=== PATIENT | female | born 1970 | race Caucasian/White ===

== ENCOUNTER 2017-10-24 17:54 | Emergency (ER) | payer OTHER, SELFPAY ==
[2017-10-24 17:55] VITALS: BP 180/100; PULSE 75; RESP 18; TEMP 36.5; O2SAT 98; BMI 19.1
--- NOTE | 2017-10-24 18:07 | CT_ITS ---
CT head/brain wo con HISTORY: Seizures, repetitive seizures ITS.REASON: seizure ORDERING PHYSICIAN: Lloyd Cagle MD PATIENT AGE: 46 years COMPARISON: 09/23/2016 TECHNIQUE: Axial images obtained without contrast. Brain and bone windows reviewed. FINDINGS: Study was performed by helical technique due to patient motion. No midline shift or mass effect is evident. No acute intracranial hemorrhage. There is mild prominence of the lateral ventricles not significantly changed. There is prominence of the suprasellar cistern on the left as before. 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 Some of these on the left appear somewhat more prominent than when compared to the previous study but could be related to the helical technique. No acute calvarial abnormality. No sinus air-fluid level. There is hypoplasia of the left mastoid sinuses. IMPRESSION: 1. No acute intracranial findings. 2. Mild ventriculomegaly unchanged. 3. Multiple subependymal nodules bilaterally and appear slightly more prominent than when compared to the previous study. This could be related to the technique. 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 Differential diagnosis includes tuberous sclerosis however, those nodules are usually calcified in adults. Outpatient MRI without and with contrast may be of further value.
[2017-10-24 18:15] LABS: POC Glucose,Bedside 121 mg/dL (70-110)
[2017-10-24 18:18] LABS: Microscopic, Urine URINE MICROSCOPIC (MICROSCOPIC)
[2017-10-24 18:27] LABS: Basophils % 0.1 % (0.1-2.0); Eosinophils # 0.1 K/mm3 (0.0-0.4); Eosinophils % 0.3 % (0.1-12.0); Lymphocytes # 1.9 K/mm3 (0.7-4.5); Lymphocytes % 7.6 K/mm3 (10-50); Mean Corpuscular HGB Conc 31.1 g/dL (31.8-35.4); Mean Corpuscular Hemoglobin 29.7 pg (27.0-31.2); Mean Corpuscular Volume 95.7 fl (81-99); Mean Platelet Volume 7.9 fl (7.4-10.4); Monocytes # 1.4 K/mm3 (0.1-1.0); Monocytes % 5.5 % (1.7-9.3); Neutrophils # 21.6 K/mm3 (1.8-7.8); Neutrophils % 86.4 % (37.0-80.0); Platelet Count 404 K/mm3 (142-424); Red Blood Count 4.39 M/mm3 (4.20-5.40); Red Cell Distribution Width 13.2 % (11.5-17.5)
[2017-10-24 18:29] LABS: MANUAL DIFFERENTIAL MANUAL DIFFERENTIAL (MANUAL DIFF)
--- NOTE | 2017-10-24 18:30 | XR_ITS ---
XR chest portable HISTORY: Shortness of breath, seizure ITS.REASON: dyspnea ORDERING PHYSICIAN: Lloyd Cagle MD PATIENT AGE: 47 years COMPARISON: None available FINDINGS: The cardiomediastinal silhouette and pulmonary vascularity are within normal limits. The lungs are clear without infiltrates, suspicious nodules, or pleural effusions. Bilateral nipple rings are present. There is an old fracture of the right seventh and eighth ribs and the left eighth rib. Granulomas present in the right midlung. No acute bony abnormalities. IMPRESSION: No acute finding
[2017-10-24 18:31] LABS: Appearance,Urine CLOUDY (Clear); Bilirubin,Urine Negative (Negative); Blood, Urine 2+ (Negative); Color,Urine YELLOW (Yellow); Glucose,Urine (UA) Negative (Negative); Ketones,Urine TRACE (Negative); Leukocyte Esterase,Urine Negative (Negative); Nitrate,Urine Negative (Negative); PH,Urine 5.5 (5.0-8.5); Protein,Urine 1+ (Negative); Specific Gravity, Urine >= 1.030 (1.005-1.030); Urobilinogen,Urine 0.2 EU/dl (0.2)
[2017-10-24 18:33] LABS: Amphetamine/Metha Screen,Urine Negative ng/mL (<1000); Barbiturates Screen,Urine Negative ng/mL (<200); Benzodiazepines Screen,Urine Negative ng/mL (200); Cannabinoid Screen,Urine Positive ng/mL (<50); Cocaine Screen,Urine Negative ng/g (<300); Methadone Screen,Urine Negative ng/mL (<300); Opiate Screen,Urine Negative ng/mL (<300); Phencyclidine Screen,Urine Negative ng/mL (<25)
[2017-10-24 18:43] VITALS: BP 115/65; PULSE 110; RESP 16; TEMP 37.2; O2SAT 99
[2017-10-24 18:47] LABS: Bacteria,Urine 4+ /lpf; Squamous Epithelial Cell,Urine 20-50 #/hpf (0-5)
[2017-10-24 18:50] LABS: Lymphocytes % 8 % (10-50); Monocytes % 3 % (2-9); Neutrophils % 89 % (42-76); Platelet Estimate Normal; RBC Morphology Normal; Total Cells Counted 100
[2017-10-24 19:00] VITALS: BP 120/60; PULSE 116; RESP 18; TEMP 37.8; O2SAT 88
--- NOTE | 2017-10-24 19:28 | PC.NURSE ---
Pt sounded like she was gargling - suctioned patient's mouth at this time. Room air saturation was 88%, placed pt on 2l nc.
[2017-10-24 19:37] LABS: Lactic Acid 7.7 mmol/L (0.4-2.0)
[2017-10-24 19:37] LABS: Alanine Aminotransferase 34 U/L (12-78); Albumin Level 4.2 gm/dL (3.4-5.0); Albumin/Globulin Ratio 1.2 (1.1-1.8); Alkaline Phosphatase 83 U/L (46-116); Anion Gap 24.5 mEq/L (5-15); Aspartate Amino Transferase 58 U/L (15-37); Bilirubin,Total 0.8 mg/dL (0.2-1.0); Blood Urea Nitrogen 10 mg/dL (7-18); Calcium 8.1 mg/dL (8.5-10.1); Carbon Dioxide 17 mmol/L (21.0-32.0); Creatinine Clearance Estimated 51 mL/min (0-300); Creatinine,Serum 0.95 mg/dL (0.55-1.02); Estimated Glomerular Filt Rate 63 ml/min (>60); Ethyl Alcohol 33 mg/dL (0-99); GFR (African American) 76 ML/MIN (>60); Globulin 3.5 gm/dl (1.3-3.2); Glucose 114 mg/dL (74-106); Potassium 3.5 mmoL/L (3.5-5.1); Total Protein,Serum 7.7 gm/dL (6.4-8.2)
[2017-10-24 19:38] LABS: Chloride 73 mmol/L (98-107); Sodium 111 mmol/L (136-145)
--- NOTE | 2017-10-24 19:39 | HMH.EDSEIZ ---
ED Disposition Clinical Impression: Hyponatremia, Lactic acidemia, Seizure, Alcoholism, Septic shock Alcohol withdrawal Qualifiers: Complication of substance-induced condition: uncomplicated Qualified Code(s): F10.230 - Alcohol dependence with withdrawal, uncomplicated Pneumonia Qualifiers: Pneumonia type: due to unspecified organism Laterality: left Lung location: upper lobe of lung Qualified Code(s): J18.1 - Lobar pneumonia, unspecified organism Disposition: Xfer Short-Term Hosp Condition on Discharge: Critical Referrals: Mariana Faith [Primary Care Provider] - Forms: Transfer Record - ED Time of Disposition: 20:07 - Critical Care Critical Care Time: Yes Attestation: On 10/24/17, the high probability of a clinically significant, sudden or life threatening deterioration of the following system(s) required my full and direct attention, intervention and personal management. The time I documented below is in addition to time spent performing reported procedures but includes the following listed in this critical care notation. Total Critical Care Time: 120 Vital system(s) involved:: Central Nervous System, Shock (Septic) My critical care processes included: Assessment & monitoring of V/S, Initial and Re-exams, Data Review/Interpretation, Coordinating Care, Medication Orders and management, Documentation Medical Decision Making - Medical Records Medical records reviewed: Yes: I reviewed the patient's medical records. Vital Signs: 10/24/17 17:55 10/24/17 18:43 10/24/17 19:00 Temperature 97.7 F 98.9 F 100.0 F H Temperature Source Temporal Artery Scan Temporal Artery Scan Oral Pulse Rate [Right Brachial] 75 110 H 116 H Respiratory Rate 18 16 18 Blood Pressure [Right Arm] 180/100 115/65 120/60 Blood Pressure Mean [Right Arm] 126 81 80 Blood Pressure Source [Right Arm] Automatic Cuff Automatic Cuff Automatic Cuff Blood Pressure Position [Right Arm] Sitting Sitting Supine 02 Sat by Pulse Oximetry 98 99 88 L Oxygen Delivery Method Room Air Room Air Nasal Cannula Room Air Oxygen Flow Rate (LPM) 10/24/17 19:51 10/24/17 20:10 Temperature 100.3 F H Temperature Source Rectal Pulse Rate [Right Brachial] 106 H 105 H Respiratory Rate 18 18 Blood Pressure [Right Arm] 134/84 134/84 Blood Pressure Mean [Right Arm] 100 100 Blood Pressure Source [Right Arm] Automatic Cuff Automatic Cuff Blood Pressure Position [Right Arm] Supine Supine 02 Sat by Pulse Oximetry 98 96 Oxygen Delivery Method Nasal Cannula Oxygen Flow Rate (LPM) 3 2 - Lab Data Lab results reviewed: Yes: I reviewed the patient's lab results. Lab Results 10/24/17 18:06: POC Glucose 121 10/24/17 18:10: Urine Color Yellow, Urine Appearance Cloudy, Urine pH 5.5, Ur Specific [place] >= 1.030, Urine Protein 1+, Urine Glucose (UA) Negative, Urine Ketones Trace, Urine Blood 2+, Urine Nitrate Negative, Urine Bilirubin Negative, Urine Urobilinogen 0.2, Ur Leukocyte Esterase Negative, Urine RBC None, Urine WBC 5-10, Ur Squamous Epith Cells 20-50, Urine Bacteria 4+ 10/24/17 18:10: WBC 25.0 H*, RBC 4.39, Hgb 13.0, Hct 42.0, MCV 95.7, MCH 29.7, MCHC 31.1 L, RDW 13.2, Plt Count 404, MPV 7.9, Neut % (Auto) 86.4 H, Lymph % (Auto) 7.6 L, [place] % (Auto) 5.5, Eos % (Auto) 0.3, Baso % (Auto) 0.1, Neut # (Auto) 21.6 H, Lymph # (Auto) 1.9, [place] # (Auto) 1.4 H, Eos # (Auto) 0.1, Baso # (Auto) 0.0, Total Counted 100, Neutrophils % (Manual) 89 H, Lymphocytes % (Manual) 8 L, Monocytes % (Manual) 3, Platelet Estimate Normal, RBC Morphology Normal 10/24/17 18:10: Sodium 111 L*, Potassium 3.5, Chloride 73 L, Carbon Dioxide 17 L, Anion Gap 24.5 H, BUN 10, Creatinine 0.95, Estimated Creat Clear 51, Estimated GFR 63, Est GFR ( Amer) 76, Glucose 114 H, Calcium 8.1 L, Total Bilirubin 0.8, AST 58 H, ALT 34, Alkaline Phosphatase 83, Total Protein 7.7, Albumin 4.2, Globulin 3.5 H, Albumin/Globulin Ratio 1.2, Plasma/Serum Alcohol 33 10/24/17 18:10: Urine Opiates Screen Negative, Ur Barbitua
[2017-10-24 19:40] LABS: ABG Base Excess -1.8 mmol/L (-2.4-2.3); ABG HCO3 22.3 mmhg (22.0-26.0); ABG Oxygen Saturation 97 % (90-100); ABG PCO2 33.4 mmhg (35.0-45.0); ABG PH 7.44 mmol/L (7.35-7.45); ABG TCO2 23.4 mmhg (23-27)
[2017-10-24 19:43] LABS: Allen's Test Patient Unable
--- NOTE | 2017-10-24 19:46 | PC.NURSE ---
LAB CALLED WITH CRITICAL LAB VALUE, LACTIC 7.7, AND SODIUM 111. ADVISED.
[2017-10-24 19:51] VITALS: BP 134/84; PULSE 106; RESP 18; TEMP 37.9; O2SAT 98
--- NOTE | 2017-10-24 19:52 | PC.NURSE ---
md on phone with dr burroughs regarding possible admission at this time
--- NOTE | 2017-10-24 19:56 | PC.NURSE ---
Dr Collier requested to have patient transferred to .
[2017-10-24 20:10] VITALS: BP 134/84; PULSE 105; RESP 18; O2SAT 96
--- NOTE | 2017-10-24 20:10 | PC.NURSE ---
pharmacy paged for vanc dosing
--- NOTE | 2017-10-24 20:27 | PC.NURSE ---
KENNEDY FROM PHARMACY CALLED FOR VANCOMYCIN CONSULT. SHE ADVISED PT SHOULD HAVE 750MG EVERY 18 HOURS. ADVISED.
--- NOTE | 2017-10-24 20:53 | PC.NURSE ---
lenora paged per md regarding rate for hypertonic iv fluids. also spoke with pharmacy regarding compatibility with iv abx as pt has one iv
--- NOTE | 2017-10-24 20:58 | PC.NURSE ---
Shira, pharmacy stated Vancomycin and Azithromycin are compatible with Hypertonic iv fluids 3% solution
--- NOTE | 2017-10-24 21:14 | PC.NURSE ---
Report called to SHERI Baumann at ER at this time. [facility] notified of pt being ready for transport.
[2017-10-24 21:15] VITALS: BP 123/70; PULSE 107; RESP 22; TEMP 37.3; O2SAT 100
[2017-10-24 21:47] LABS: Reflex Lactic Add Lactic Reflex
[2017-10-29 06:41] LABS: Levetiracetam (Keppra) None Detected ug/mL (10.0-40.0)
== END 2017-10-24 21:24 | disposition short-term general hospital (02) ==
PROVIDERS: Emergency Provider Emergency Medicine; PCP Physician Assistant
DX: R56.9 Unspecified convulsions (principal); E87.1 Hypo-osmolality and hyponatremia; E87.2 Acidosis; F10.230 Alcohol dependence with withdrawal, uncomplicated; J18.1 Lobar pneumonia, unspecified organism; R65.21 Severe sepsis with septic shock; F17.210 Nicotine dependence, cigarettes, uncomplicated
CPT/HCPCS: 70450; 71045; 80053; 80177; 80305; 81001; 82803; 82962; 83605; 85007; 85025; 87040; 87086; 87088; 87186; 93041; 96365; 96366; 96367; 96374; 96375; 96376; 99285; J0456

== ENCOUNTER 2017-11-06 11:10 | Emergency (ER) | payer OTHER, SELFPAY ==
[2017-11-06 11:12] VITALS: BP 86/55; PULSE 97; RESP 18; TEMP 36.8; O2SAT 92; BMI 17.2
[2017-11-06 11:32] LABS: Basophils % 0.1 % (0.1-2.0); Eosinophils % 0.3 % (0.1-12.0); Hematocrit 32.3 % (37.0-47.0); Hemoglobin 10.2 g/dL (12.2-16.2); Lymphocytes # 1.5 K/mm3 (0.7-4.5); Lymphocytes % 9.8 K/mm3 (10-50); Mean Corpuscular HGB Conc 31.5 g/dL (31.8-35.4); Mean Corpuscular Hemoglobin 30.1 pg (27.0-31.2); Mean Corpuscular Volume 95.6 fl (81-99); Mean Platelet Volume 7.8 fl (7.4-10.4); Monocytes # 0.8 K/mm3 (0.1-1.0); Monocytes % 5.4 % (1.7-9.3); Neutrophils # 12.9 K/mm3 (1.8-7.8); Neutrophils % 84.4 % (37.0-80.0); Platelet Count 301 K/mm3 (142-424); Red Blood Count 3.38 M/mm3 (4.20-5.40); Red Cell Distribution Width 13.1 % (11.5-17.5); White Blood Count 15.2 K/mm3 (4.8-10.8)
[2017-11-06 11:34] LABS: MANUAL DIFFERENTIAL MANUAL DIFFERENTIAL (MANUAL DIFF)
[2017-11-06 11:46] LABS: Lymphocytes % 6 % (10-50); Monocytes % 10 % (2-9); Neutrophils % 84 % (42-76); Platelet Estimate Normal; RBC Morphology Normal; Total Cells Counted 100
[2017-11-06 11:55] LABS: Albumin Level 3.5 gm/dL (3.4-5.0); Albumin/Globulin Ratio 1.3 (1.1-1.8); Alkaline Phosphatase 80 U/L (46-116); Anion Gap 13.4 mEq/L (5-15); Bilirubin,Total 0.3 mg/dL (0.2-1.0); Blood Urea Nitrogen 17 mg/dL (7-18); Calcium 8.3 mg/dL (8.5-10.1); Carbon Dioxide 29 mmol/L (21.0-32.0); Chloride 95 mmol/L (98-107); Creatinine Clearance Estimated 22 mL/min (0-300); Estimated Glomerular Filt Rate 24 ml/min (>60); GFR (African American) 29 ML/MIN (>60); Globulin 2.8 gm/dl (1.3-3.2); Glucose 95 mg/dL (74-106); Potassium 4.4 mmoL/L (3.5-5.1); Sodium 133 mmol/L (136-145); Total Protein,Serum 6.3 gm/dL (6.4-8.2)
[2017-11-06 12:27] LABS: Alanine Aminotransferase 1824 U/L (12-78)
[2017-11-06 12:33] VITALS: BP 108/62; PULSE 90; RESP 18; O2SAT 93
[2017-11-06 12:35] LABS: Aspartate Amino Transferase 2807 U/L (15-37)
--- NOTE | 2017-11-06 12:49 | HMH.EDGENADL ---
ED Disposition Clinical Impression: Alcoholism Acute liver failure Qualifiers: Hepatic coma status: without hepatic coma Qualified Code(s): K72.00 - Acute and subacute hepatic failure without coma Acute renal failure Qualifiers: Acute renal failure type: unspecified Qualified Code(s): N17.9 - Acute kidney failure, unspecified Hypotension Qualifiers: Hypotension type: unspecified hypotension type Qualified Code(s): I95.9 - Hypotension, unspecified Anemia Qualifiers: Anemia type: unspecified type Qualified Code(s): D64.9 - Anemia, unspecified Disposition: Xfer Short-Term Hosp Condition on Discharge: Serious Referrals: Eneida Child [Primary Care Provider] - Forms: Transfer Record - ED Time of Disposition: 14:47 - Critical Care Critical Care Time: Yes Attestation: On 11/06/17, the high probability of a clinically significant, sudden or life threatening deterioration of the following system(s) required my full and direct attention, intervention and personal management. The time I documented below is in addition to time spent performing reported procedures but includes the following listed in this critical care notation. Total Critical Care Time: 75 Vital system(s) involved:: Metabolic Failure My critical care processes included: Assessment & monitoring of V/S, Initial and Re-exams, Data Review/Interpretation, Coordinating Care, Medication Orders and management, Documentation Medical Decision Making - Medical Records Medical records reviewed: Yes: I reviewed the patient's medical records. - Payam Inquiry Pt receiving controlled substance: No Vital Signs: 11/06/17 11:12 11/06/17 12:33 11/06/17 16:12 Temperature 98.2 F 98.4 F Temperature Source Oral Oral Pulse Rate 82 Pulse Rate [Right Brachial] 97 H 90 Respiratory Rate 18 Blood Pressure 100/72 Blood Pressure [Right Arm] 86/55 108/62 Blood Pressure Mean [Right Arm] 65 77 Blood Pressure Source Automatic Cuff Blood Pressure Source [Right Arm] Automatic Cuff Automatic Cuff Blood Pressure Position Sitting Blood Pressure Position [Right Arm] Sitting Sitting 02 Sat by Pulse Oximetry 92 L 93 L Oxygen Delivery Method Room Air Room Air Room Air - Lab Data Lab results reviewed: Yes: I reviewed the patient's lab results. Lab Results 11/06/17 11:25: WBC 15.2 H, RBC 3.38 L, Hgb 10.2 L, Hct 32.3 L, MCV 95.6, MCH 30.1, MCHC 31.5 L, RDW 13.1, Plt Count 301, MPV 7.8, Neut % (Auto) 84.4 H, Lymph % (Auto) 9.8 L, [place] % (Auto) 5.4, Eos % (Auto) 0.3, Baso % (Auto) 0.1, Neut # (Auto) 12.9 H, Lymph # (Auto) 1.5, [place] # (Auto) 0.8, Eos # (Auto) 0.0, Baso # (Auto) 0.0, Total Counted 100, Neutrophils % (Manual) 84 H, Lymphocytes % (Manual) 6 L, Monocytes % (Manual) 10 H, Platelet Estimate Normal, RBC Morphology Normal 11/06/17 11:25: Sodium 133 L, Potassium 4.4, Chloride 95 L, Carbon Dioxide 29, Anion Gap 13.4, BUN 17, Creatinine 2.20 H, Estimated Creat Clear 22, Estimated GFR 24 L, Est GFR ( Amer) 29 L, Glucose 95, Calcium 8.3 L, Total Bilirubin 0.3, AST 2807 H*, ALT 1824 H*, Alkaline Phosphatase 80, Total Protein 6.3 L, Albumin 3.5, Globulin 2.8, Albumin/Globulin Ratio 1.3 11/06/17 11:30: Plasma/Serum Alcohol 0 11/06/17 11:30: Amylase 110, Lipase 51 L 11/06/17 15:15: Urine Color Yellow, Urine Appearance Cloudy, Urine pH 6.0, Ur Specific [place] 1.025, Urine Protein 2+, Urine Glucose (UA) Negative, Urine Ketones Negative, Urine Blood 2+, Urine Nitrate Negative, Urine Bilirubin Negative, Urine Urobilinogen 0.2, Ur Leukocyte Esterase 2+ A, Urine RBC Occasional, Urine WBC 20-50, Ur Squamous Epith Cells Occasional, Urine Bacteria 3+ Result diagrams: 11/06/17 11:25 11/06/17 11:25 Orders (Tests/Meds): ED MEDICATIONS Discontinued Medications Generic Name Dose Route Start Last Admin Trade Name Freq PRN Reason Stop Dose Admin Sodium Chloride 1,000 mls @ 999 mls/hr 11/06/17 13:15 11/06/17 13:10 Sod Chlor 0.9% 1000ml Bag IV 11/06/17 14
[2017-11-06 13:28] LABS: Ethyl Alcohol 0 mg/dL (0-99)
--- NOTE | 2017-11-06 13:42 | PC.NURSE ---
EDIN COKER speaking with REBEKA Rivas for Dr. Maldonado.
--- NOTE | 2017-11-06 15:08 | PC.NURSE ---
FAMILY NOTIFIED OF TRANSFER TO [facility]. PATIENT ACCEPTED TO [facility] ED TO SERVICES DR PERKINS WITH DX ACUTE LIVER FAILURE AND ACUTE RENAL FAILURE
[2017-11-06 15:22] LABS: Microscopic, Urine URINE MICROSCOPIC (MICROSCOPIC)
[2017-11-06 15:23] LABS: Appearance,Urine CLOUDY (Clear); Bilirubin,Urine Negative (Negative); Blood, Urine 2+ (Negative); Color,Urine YELLOW (Yellow); Glucose,Urine (UA) Negative (Negative); Ketones,Urine Negative (Negative); Leukocyte Esterase,Urine 2+ (Negative); Nitrate,Urine Negative (Negative); Protein,Urine 2+ (Negative); Specific Gravity, Urine 1.025 (1.005-1.030); Urobilinogen,Urine 0.2 EU/dl (0.2)
[2017-11-06 15:49] LABS: Bacteria,Urine 3+ /lpf; RBC,Urine Occasional #/hpf (0-3); Squamous Epithelial Cell,Urine Occasional #/hpf (0-5); WBC,Urine 20-50 #/hpf (0-3)
[2017-11-06 16:12] VITALS: BP 100/72; PULSE 82; RESP 18; TEMP 36.9; O2SAT 90
[2017-11-06 16:45] LABS: Amylase 110 U/L (25-125); Lipase 51 u/L (73-393)
== END 2017-11-06 16:14 | disposition short-term general hospital (02) ==
PROVIDERS: Emergency Provider Emergency Medicine; PCP Family Medicine
DX: K72.00 Acute and subacute hepatic failure without coma (principal); N17.9 Acute kidney failure, unspecified; I95.9 Hypotension, unspecified; D64.9 Anemia, unspecified; F17.210 Nicotine dependence, cigarettes, uncomplicated; R56.9 Unspecified convulsions; F10.20 Alcohol dependence, uncomplicated
CPT/HCPCS: 80053; 81001; 82150; 83690; 85007; 85025; 87086; 87088; 87186; 96365; 96366; 99284

== ENCOUNTER → 2017-12-07 13:48 | Outpatient (CLI) | payer OTHER, SELFPAY ==
--- NOTE | 2017-12-07 13:51 | CA_ITS ---
PROCEDURE: 2-D M-mode and color Doppler study INDICATIONS FOR THE TEST: Chest painx COPD Heart Murmur Tobacco Smokingx Palpitations Fatiguex Syncope Edema HypertensionxDiabetes Mellitus Rheumatic Fever SOBxDOE Obesity Hyperlipidemia Family History HD Additional History PATIENT INFORMATION HEIGHT: 5'4'' WEIGHT:89 GENDER: Female B/P: 165/92 2-D/M-MODE INTERPRETATION: 2-D MEASUREMENTS OBSERVED VALUES IN CMS Right Ventricular Dimension (RVDd) 1.8 Interventricular Septum (Thickness)(IVsd) 0.6 Left Ventricular Internal Dimensions(LVIDd) 3.9 Left Ventricular Posterior Wall (Thickness)(LVPWd) 0.8 Aortic Root 2.5 Aortic Cusp Separation 1.6 Left Atrial Dimensions (LAD) 2.4 2D 1. Left atrium is normal size, left ventricle is normal size, there is no concentric left ventricular hypertrophy, visually estimated ejection fraction 55% with no obvious regional wall motion abnormality. 2. The right atrium and right ventricle are normal size and contractility. 3. The aortic valve is minimally thickened and fibrosed. 4. The mitral and tricuspid valve are structurally normal. 5. The pulmonic valve is poorly visualized. 6. No significant pericardial effusion noted. DOPPLER INTERROGATION: Doppler interrogation of the aortic, mitral and tricuspid valvular presence of mild mitral and tricuspid regurgitation, tricuspid and jet velocity is insufficient for calculation of the right ventricular systolic pressure, grade 1 diastolic dysfunction seen without tissue Doppler evidence of raised left atrial pressure. CONCLUSION: 1. Normal left ventricular size, visually estimated ejection fraction 55% no signal wall motion abnormality, grade 1 diastolic dysfunction seen without tissue Doppler evidence of raised left atrial pressure. 2. Mild mitral and tricuspid regurgitation. 3. No significant pericardial effusion noted.
== END ==
PROVIDERS: PCP Family Medicine; Visit Provider Internal Medicine
DX: I25.10 Atherosclerotic heart disease of native coronary artery without angina pectoris (principal); F10.20 Alcohol dependence, uncomplicated; R56.9 Unspecified convulsions; Z72.0 Tobacco use
CPT/HCPCS: 93306

== ENCOUNTER → 2018-06-12 07:14 | Outpatient (CLI) | payer OTHER, SELFPAY ==
--- NOTE | 2018-06-12 07:16 | NM_ITS ---
CARDIOLITE SPECT MYOCARDIAL PERFUSION SCAN, REST AND STRESS: EXERCISE STRESS [facility] REVIEW QGS EF AND WALL MOTION EVALUATION: QPS - PERFUSION EVALUATION HISTORY: SOB, Palpitations, Fatigue, HTN, Tobacco use DOSE: 10.26 mCi technetium 99m mibi intravenously at rest followed by 31.0 mCi technetium 99m mibi following the intravenous ministration of 0.4 mg of Lexiscan. Resting blood pressure is 167/87. Stress blood pressure 145/83. FINDINGS: Ejection fraction is calculated to be 67%. Uniform myocardial activity both stress and rest. Gated images calculated ejection fraction 67% with normal wall motion IMPRESSION: No scintigraphic evidence of Lexiscan-induced myocardial ischemia with normal ejection fraction normal wall motion
--- NOTE | 2018-06-12 08:41 | HMH.ITSHM ---
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 []OMEPRAZOLE MOMETASONE LISINOPRIL LEVETIRACETAM NAPROXEN HYDROCHLOROTHIAZIDE FOLIC ACID BISOPROLOL ASA ALBUTEROL GABAPENTIN FLUOXETINE
== END ==
PROVIDERS: PCP Family Medicine; Visit Provider Internal Medicine
DX: E78.5 Hyperlipidemia, unspecified (principal); I10 Essential (primary) hypertension; R06.09 Other forms of dyspnea; I25.118 Atherosclerotic heart disease of native coronary artery with other forms of angina pectoris; D64.9 Anemia, unspecified; F10.20 Alcohol dependence, uncomplicated; F17.200 Nicotine dependence, unspecified, uncomplicated; R07.9 Chest pain, unspecified
CPT/HCPCS: 78452; 93017; A9502; J2785

== ENCOUNTER → 2018-06-19 13:50 | Outpatient (CLI) | payer OTHER, SELFPAY ==
[2018-06-19 15:27] LABS: Anion Gap 12.2 mEq/L (5-15); Blood Urea Nitrogen 8 mg/dL (7-18); Calcium 9.3 mg/dL (8.5-10.1); Carbon Dioxide 31 mmol/L (21.0-32.0); Chloride 101 mmol/L (98-107); Creatinine,Serum 0.71 mg/dL (0.55-1.02); Estimated Glomerular Filt Rate 88 ml/min (>60); GFR (African American) 106 ML/MIN (>60); Glucose 89 mg/dL (74-106); Potassium 4.2 mmoL/L (3.5-5.1); Sodium 140 mmol/L (136-145); Troponin I 0.02 ng/ml (0.00-0.06)
== END ==
PROVIDERS: Visit Provider Internal Medicine
DX: R07.9 Chest pain, unspecified (principal); R06.09 Other forms of dyspnea; E78.5 Hyperlipidemia, unspecified; F10.20 Alcohol dependence, uncomplicated; F17.200 Nicotine dependence, unspecified, uncomplicated; I10 Essential (primary) hypertension; I25.118 Atherosclerotic heart disease of native coronary artery with other forms of angina pectoris; R42 Dizziness and giddiness; R55 Syncope and collapse
CPT/HCPCS: 36415; 80048; 84484

== ENCOUNTER 2019-06-05 08:36 | Observation (INO) ==
[2019-06-05 09:02] LABS: Basophils # 0.1 K/mm3 (0-0.2); Basophils % 0.5 % (0.1-2.0); Eosinophils # 0.1 K/mm3 (0.0-0.4); Eosinophils % 0.9 % (0.1-12.0); Hematocrit 42.7 % (37.0-47.0); Hemoglobin 12.8 g/dL (12.2-16.2); Lymphocytes # 1.9 K/mm3 (0.7-4.5); Lymphocytes % 19.2 % (10-50); Mean Corpuscular HGB Conc 29.9 g/dL (31.8-35.4); Mean Corpuscular Volume 90.9 fl (81-99); Mean Platelet Volume 7.5 fl (7.4-10.4); Monocytes # 0.8 K/mm3 (0.1-1.0); Monocytes % 8.1 % (1.7-9.3); Neutrophils # 7.1 K/mm3 (1.8-7.8); Neutrophils % 71.2 % (37.0-80.0); Platelet Count 335 K/mm3 (142-424); Red Cell Distribution Width 13.8 % (11.5-17.5); White Blood Count 9.9 K/mm3 (4.8-10.8)
--- NOTE | 2019-06-05 09:23 | Emergency Department Note ---
ED Disposition Clinical Impression: COPD exacerbation Respiratory failure with hypoxia Qualifiers: Chronicity: acute on chronic Qualified Code(s): J96.21 - Acute and chronic respiratory failure with hypoxia Disposition: Admitted As Inpatient Condition on Discharge: Fair Referrals: Provider,Referral, [Primary Care Provider] - - Critical Care Critical Care Time: Yes Attestation: On 06/05/19, the high probability of a clinically significant, sudden or life threatening deterioration of the following system(s) required my full and direct attention, intervention and personal management. The time I documented below is in addition to time spent performing reported procedures but includes the following listed in this critical care notation. Vital system(s) involved:: Respiratory Failure My critical care processes included: Assessment & monitoring of V/S, Initial and Re-exams, Data Review/Interpretation, Coordinating Care, Medication Orders and management, Documentation Medical Decision Making - Payam Inquiry Pt receiving controlled substance: No Vital Signs: 06/05/19 08:37 06/05/19 08:45 06/05/19 09:40 Temperature 98.1 F Temperature Source Oral Pulse Rate [Left Radial] 92 H 81 79 Respiratory Rate 38 H Blood Pressure [Right Arm] 199/61 H 194/103 H 153/103 H Blood Pressure Mean [Right Arm] 107 133 119 Blood Pressure Source [Right Arm] Automatic Cuff Blood Pressure Position [Right Arm] Sitting Sitting Sitting 02 Sat by Pulse Oximetry 87 L 96 93 L Oxygen Delivery Method Room Air Room Air Nasal Cannula Oxygen Flow Rate (LPM) 2 06/05/19 10:12 Temperature Temperature Source Pulse Rate [Left Radial] 102 H Respiratory Rate Blood Pressure [Right Arm] 153/98 H Blood Pressure Mean [Right Arm] 116 Blood Pressure Source [Right Arm] Blood Pressure Position [Right Arm] Sitting 02 Sat by Pulse Oximetry Oxygen Delivery Method Oxygen Flow Rate (LPM) - Lab Data Lab Results 06/05/19 08:45: WBC 9.9, RBC 4.70, Hgb 12.8, Hct 42.7, MCV 90.9, MCH 27.2, MCHC 29.9 L, RDW 13.8, Plt Count 335, MPV 7.5, Neut % (Auto) 71.2, Lymph % (Auto) 1 9.2, [place] % (Auto) 8.1, Eos % (Auto) 0.9, Baso % (Auto) 0.5, Neut # (Auto) 7.1, Lymph # (Auto) 1.9, [place] # (Auto) 0.8, Eos # (Auto) 0.1, Baso # (Auto) 0.1 06/05/19 08:45: Sodium 136, Potassium 3.8, Chloride 98, Carbon Dioxide 31, Anion Gap 10.8, BUN 8, Creatinine 0.69, Estimated Creat Clear 71, Estimated GFR 90, Est GFR ( Amer) 109, Glucose 106, Calcium 9.2, Total Bilirubin 0.1 L, AST 11 L, ALT 12, Alkaline Phosphatase 122 H, Total Protein 7.6, Albumin 3.7, Globulin 3.9 H, Albumin/Globulin Ratio 0.9 L 06/05/19 08:45: Lactate 1.3 Result diagrams: 06/05/19 08:45 06/05/19 08:45 Orders (Tests/Meds): ED MEDICATIONS Generic Name Dose Route Start Last Admin Trade Name Freq PRN Reason Stop Dose Admin Azithromycin 500 mg/ Sodium 250 mls @ 250 mls/hr 06/05/19 09:45 06/05/19 09:47 Chloride IV 06/19/19 09:44 250 mls/hr Q24H SUZY Administration Protocol Ceftriaxone Sodium 1 gm/ 50 mls @ 100 mls/hr 06/05/19 09:45 06/05/19 10:06 Sodium Chloride IV 06/19/19 09:44 100 mls/hr Q24H SUZY Administration Protocol Discontinued Medications Generic Name Dose Route Start Last Admin Trade Name Freq PRN Reason Stop Dose Admin Albuterol/Ipratropium 3 ml 06/05/19 09:36 06/05/19 08:45 Duoneb 3ml [facility] 06/05/19 09:37 3 ml ONCE ONE Administration Albuterol/Ipratropium 3 ml 06/05/19 09:37 06/05/19 09:38 Duoneb 3ml Neb 06/05/19 09:38 3 ml ONCE ONE Administration Methylprednisolone Sodium Succinate 125 mg 06/05/19 08:43 06/05/19 08:56 Solu-Medrol 125mg/2ml Vial IV 06/05/19 08:44 125 mg ONCE ONE Administration ORDERS Category Date Time Status Blood Culture Stat Micro 06/05/19 08:49 Received - Radiology Data #1 Image(s): Chest Image Reviewed: Yes I have reviewed radiologist's interpretation FINDINGS: The cardiomediastinal silhouette and pulmonary vascularity are within normal limits. COPD/emphysema. There are old fractures of the right 7th, 8th, and 9th ribs. No lobar consolidation or collapse. No acute bony abnormalities. IMPRESSION: COPD Dictated by: Tong Eugene MD 06/05/2019 09:20 Electronically signed by Tong Eugene MD in [place] 06/05/2019 09:20 - ECG Data Tracing #1 EKG interpreted by Amarjit Mcnair MD: Rhythm: sinus Rate: 82 [place]: normal Ectopy: none Conduction: normal ST Segment Changes: none T Wave Changes: none Q Waves: none No evidence of acute ischemia or injury - Physician Consults Physician Consulted: Jones Time: 10:20 Reason -: Admission Comment/Response: Agrees to admit the patient to the hospital. We discussed the patient's clinical information, including history, exam, laboratory and radiology results and ED course. Per hospital procedure, I will write temporary bridge inpatient orders on the patient. Specific orders requested by the admitting physician: Continue Rocephin, Zithromax, steroids, nebulizer treatments General Adult HPI - General Chief complaint: Shortness of Breath/Dyspnea Stated complaint: sob Time Seen by Provider: 06/05/19 09:22 Mode of Arrival: Ambulatory Limitations: No Limitations Description of Symptoms (Recalled from ER Triage Doc. by RN): to ed per pvt car with c/o sob starting "at the beginning of the month" pt c/o lt side rib and back pain. pt also states she ran out of her inhaler several days ago. - History of Present Illness HPI narrative: The patient is a poor historian. She complains of increasing shortness of breath, cough productive of yellow sputum since she had a fall from a stationary riding mower in the beginning of May after drinking too much at a [employer]. S he injured her left ribs at that time and feels like she has been getting worse ever since. Chills, but no documented fever. She has severe COPD. She says she is supposed to be on oxygen at home but apparently has had some sort of problems with her equipment or tubing, and says that she just recently got a reinstituted. She says she used her mother's oxygen bottle last night. She did not wear her oxygen on her way to the hospital today and arrived short of breath, and hypoxic. She says she uses an inhaler, but needs a new one. She denies having a nebulizer at home. She admits that she still smokes 3 packs of cigarettes per day. Primary care provider is [facility]. - Related Data Home Medications Medication Instructions Recorded Confirmed Fluoxetine HCl [Prozac] 20 mg PO DAILY 10/24/17 06/05/19 Gabapentin [Gabapentin 300mg Cap] 300 mg PO QID 10/24/17 06/05/19 Naproxen 500 mg PO BID 10/24/17 06/05/19 albuterol sulfate 90 mcg/actuation 2 inh INHALATION Q8H PRN 11/21/17 06/05/19 breath activated powder inhaler aspirin 81 mg tablet,delayed 81 mg PO DAILY tab 11/21/17 06/05/19 release mometasone-formoterol HFA 200 2 puff INHALATION Q12H 11/21/17 06/05/19 mcg-5 mcg/actuation aerosol inhaler levetiracetam 750 mg tablet 750 mg PO BID 06/19/18 06/05/19 ropinirole 1 mg tablet 1 mg PO QHS 06/19/18 06/05/19 Previous Rx's Medication Instructions Recorded lisinopril 20 mg tablet 20 mg PO BID #60 tab 02/25/19 Allergies Allergy/AdvReac Type Severity Reaction Status Date / Time No Known Allergies Allergy Verified 06/05/18 14:[address] [facility] History - Hepatitis A Screen Drug use history?: No High risk sexual behaviors?: No History of sexually transmitted infection?: No Currently employed?: No Childcare worker?: No Do you have indoor plumbing?: Yes Do you have electricity?: Yes Attestation statement:: This patient has been screened for Hepatitis A risk factors. I have reviewed the patient's past medical history: Yes Medical History: Reports:: Chronic Obstructive Pulmonary Disease (COPD), Hypertension Denies:: Diabetes Mellitus Type 1, Diabetes Mellitus Type 2 Other Medical History: Reports: Anemia, Other Other Surgeries: Yes: Hysterectomy-Total Amputation: No Fractures: No - Social History Smoking Status: Current every day smoker Tobacco Type: cigarettes # Packs/Day (cigarettes): 2 Alcohol Intake: never Alcohol Intake Frequency:: 3 or more drinks per day Substance Use Type: denies use Occupational Status: other Family Hx:: Diabetes, Hyperlipidemia ROS Obtained: Yes All systems reviewed & no additional complaints - Constitutional Constitutional: Reports chills, Denies fever(s) - Cardiovascular Cardiovascular: Reports chest pain (Left ribs) - Respiratory Respiratory: Yes cough, Yes dyspnea, Yes excessive phlegm production, No coughing up blood, Yes wheezing - Gastrointestinal Gastrointestingal: Denies: abdominal pain, vomiting Physical Exam - General General appearance: alert Comment: Mildly labored respirations - Head Head exam: atraumatic, normocephalic - Eye Eye exam: Present: normal appearance, EOMI - ENT ENT exam: Present: mucous membranes moist - Neck Neck exam: Present: normal inspection, full ROM, trachea midline - Chest Chest inspection: Present: normal inspection, symmetric chest wall rise, tenderness (Left lateral ribs) - Respiratory Respiratory exam: Present: normal lung sounds bilaterally. Absent: respiratory distress - Cardiovascular Cardiovascular exam: Present: regular rate, normal rhythm, normal heart sounds - Abdominal Exam Abdominal exam: Present: soft, normal bowel sounds. Absent: distention, tenderness - Extremities Exam Extremities exam: Present: normal inspection, full ROM. Absent: tenderness, pedal edema, calf tenderness - Neurological Exam Neurological exam: Present: alert, oriented X3 - Psychiatric Psychiatric exam: Present: normal affect, normal mood - Skin Skin exam: Present: warm, dry
[2019-06-05 09:27] LABS: Albumin Level 3.7 gm/dL (3.4-5.0); Albumin/Globulin Ratio 0.9 (1.1-1.8); Anion Gap 10.8 mEq/L (5-15); Bilirubin,Total 0.1 mg/dL (0.2-1.0); Calcium 9.2 mg/dL (8.5-10.1); Globulin 3.9 gm/dl (1.3-3.2); Total Protein,Serum 7.6 gm/dL (6.4-8.2)
--- NOTE | 2019-06-05 18:23 | Electrocardiograph Report ---
APPROVED REPORT Exam: Resting ECG HR:82 bpm ECG Measurements Heart Rate 82 AXES CA 190 P 87 QRSd 66 QRS 82 QT 382 T77 QTc 446 <Conclusion> Normal sinus rhythm Normal ECG Electronically signed by : Parminder Guevara, 06/05/2019 18:22:47
--- NOTE | 2019-06-06 07:31 | Pharmacy Consult Notes ---
[facility] Pharmacy VTE Monitoring - Patient Demographics Admission date: 06/06/19 Report Date: 06/06/19 Time: 07:31 Allergies/Adverse Reactions: Patient Allergies No Known Allergies Allergy (Verified 06/05/18 14:35) Height: 1.63 m Weight: 45.359 kg Patient Problems: Current Active Problems COPD exacerbation (Acute) Respiratory failure with hypoxia (Acute) - VTE Risk Labs: VTE Related Lab Results Hgb 12.8 g/dL (12.2-16.2) 06/05/19 08:45 Hct 42.7 % (37.0-47.0) 06/05/19 08:45 Plt Count 335 K/mm3 (142-424) 06/05/19 08:45 BUN 8 mg/dL (7-18) 06/05/19 08:45 Creatinine 0.69 mg/dL (0.55-1.02) 06/05/19 08:45 Estimated Creat Clear 71 mL/min (50-200) 06/05/19 08:45 VTE Score: 2 VTE Risk Level: Very Low Risk Clinical Trial Participant: No - Prophylaxis VTE Prophylaxis Ordered?: Yes Types of VTE Prophylaxis: TEDS Knee High Location of Applied Device: Bilateral Lower Extremeties
--- NOTE | 2019-06-06 09:31 | History & Physical Report ---
*Admission Date: 06/06/19 *Chief complaint: Increased shortness of breath *History of present illness: 48 YOF sitting up in bed, O2 at 2L per N/C. Mother is in room on cot. She reports she is feeling "a little better" today. She denies having INH and has "misplaced" her nebulizer and her home O2 is currently malfunctioning. 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 The patient is a poor historian. She complains of increasing shortness of breath, cough productive of yellow sputum since she had a fall from a stationary riding mower in the beginning of May after drinking too much at a green party. She injured her left ribs at that time and feels like she has been getting worse ever since. Chills, but no documented fever. She has severe COPD. She says she is supposed to be on oxygen at home but apparently has had some sort of problems with her equipment or tubing, and says that she just recently got a reinstituted. She says she used her mother's oxygen bottle last night. She did not wear her oxygen on her way to the hospital today and arrived short of breath, and hypoxic. She says she uses an inhaler, but needs a new one. She denies having a nebulizer at home. She admits that she still smokes 3 packs of cigarettes per day. Primary care provider is [facility] (Per Dr. Mcnair). 06/05 CXR: FINDINGS: The cardiomediastinal silhouette and pulmonary vascularity are within normal limits. COPD/emphysema. There are old fractures of the right 7th, 8th, and 9th ribs. No lobar consolidation or collapse. No acute bony abnormalities. IMPRESSION: COPD Dictated by: Tong Eugene MD [facility] History Medical History: Reports:: Chronic Obstructive Pulmonary Disease (COPD), Coronary Artery Disease, Hypertension Denies:: Cancer, Diabetes Mellitus Type 1, Diabetes Mellitus Type 2, MRSA *Have you ever received a pneumonia vaccine?: No *Have you received a flu vaccine this season?: No Other Medical History: Reports: Anemia, Other Other Surgeries: Yes: Hysterectomy-Total Amputation: No Fractures: No - *Social History Educational Level: Attended High School Smoking Status: Current every day smoker Tobacco Type: cigarettes # Packs/Day (cigarettes): 2 Alcohol Intake: current Alcohol Intake Frequency:: a few times a week Substance Use Type: denies use *Occupational Status:: unemployed *Travel in the last 8 weeks: None Family Hx:: Asthma, Cancer, Coronary Artery Disease Review of Systems - Constitutional Reports fatigue, Reports lack of energy - Eyes Denies blurry vision, Denies double vision - ENT Denies difficulty swallowing, Denies sinus pressure, Denies throat swelling - *Cardiovascular Reports shortness of breath, Denies chest pain - *Respiratory Reports chest congestion, Reports cough, Reports shortness of breath - *Gastrointestinal Denies abdominal pain, Denies incontinent of stools - *Musculoskeletal Denies joint swelling, Denies radiating pain into limb - Integumentary/Breasts Denies lesions, Denies rash - *Neurologic Denies behavioral changes, Denies burning sensations, Denies tingling/numbness/burning sensations - Psychiatric Denies change in appetite - Endocrine Denies heat intolerance, Denies rapid, pounding, or irregular heartbeat - Hematologic/Lymphatic Denies easy bleeding, Denies easy bruising - Allergic/Immunologic Denies throat swelling, Denies tongue swelling Meds Home Medications Medication Instructions Recorded Confirmed Type Fluoxetine HCl [Prozac] 20 mg PO DAILY 10/24/17 06/05/19 History Gabapentin [Gabapentin 300mg Cap] 300 mg PO QID 10/24/17 06/05/19 History Naproxen 500 mg PO BID 10/24/17 06/05/19 History albuterol sulfate 90 mcg/actuation 2 inh INHALATION Q4-6H PRN 11/21/17 06/06/19 History breath activated powder inhaler aspirin 81 mg tablet,delayed 81 mg PO DAILY tab 11/21/17 06/05/19 History release mometasone-formoterol HFA 200 2 puff INHALATION Q12H 11/21/17 06/05/19 History mcg-5 mcg/actuation aerosol inhaler levetiracetam 750 mg tablet 750 mg PO BID 06/19/18 06/05/19 History ropinirole 1 mg tablet 1 mg PO HS 06/19/18 06/06/19 History lisinopril 20 mg tablet 20 mg PO BID #60 tab 02/25/19 06/05/19 Rx Allergies Allergy/AdvReac Type Severity Reaction Status Date / Time No Known Allergies Allergy Verified 06/05/18 14:35 Exam Vital signs and Labs for Last 24 Hours: Temp Pulse Resp BP Pulse Ox 97.7 F 102 H 20 142/85 H 97 06/06/19 08:07 06/06/19 08:07 06/06/19 08:07 06/06/19 08:07 06/06/19 08:09 I & O for Last 24 hours: Intake & Output 06/03/19 06/04/19 06/05/19 06/06/19 23:59 23:59 23:59 23:59 Intake Total 269 / 269 Balance 269 / 269 Weight 100 lb - Constitutional no acute distress - *Routine HEENT Exam Head: Present: normocephalic, atraumatic Eye: Present: EOMI, PERRL, normal accommodation ENT: Present: mucous membranes dry - *Routine Neck Exam Present: full ROM, trachea midline. Absent: JVD, tracheal deviation - *Routine Respiratory Exam Present: wheezes, diminished air movement - *Routine Cardiovascular Exam Present: RRR - *Routine Abdominal Exam Present: soft, normoactive bowel sounds. Absent: tenderness, firm - *Routine Extremities Exam Present: full ROM, pulses intact. Absent: cyanosis, calf tenderness - Routine Back/Spine/Pelvis Exam Back/Spine: Present: full ROM. Absent: CVA tenderness - *Routine Skin Exam Present: intact. Absent: rash - *Routine Neurological Exam Present: alert, oriented X3, CN II-XII intact - Routine Psychiatric Exam Present: normal affect, normal thought process. Absent: auditory hallucinations, visual hallucinations Assessment and Plan (1) COPD exacerbation Current visit: Yes Status: Acute Category: Medical Code(s): J44.1 - Chronic obstructive pulmonary disease with (acute) exacerbation (2) Tobacco dependence syndrome Current visit: No Status: Acute Category: Medical Code(s): F17.200 - Nicotine dependence, unspecified, uncomplicated (3) HLD (hyperlipidemia) Current visit: No Status: Acute Qualifiers: Hyperlipidemia type: unspecified Qualified Code(s): E78.5 - Hyperlipidemia, unspecified Category: Medical Code(s): E78.5 - Hyperlipidemia, unspecified (4) Respiratory failure with hypoxia Current visit: Yes Status: Acute Qualifiers: Chronicity: acute on chronic Qualified Code(s): J96.21 - Acute and chronic respiratory failure with hypoxia Category: Medical Code(s): J96.91 - Respiratory failure, unspecified with hypoxia - Assessment and plan all Dx Assessment and Plan for all problems:: Rounded with Dr. Goldman, all orders per Dr. Goldman 1. Chest CT 2. Will contact [facility] for home oxygen and nebulizer concerns 3. Check room air sats 4. Will verify home Keppra dosage
--- NOTE | 2019-06-07 09:31 | Discharge Summary ---
General - General Admission date:: 06/05/19 Discharge date: 06/07/19 HPI HPI: 48 YOF sitting up in bed, O2 at 2L per N/C. Mother is in room on cot. She reports she is feeling "a little better" today. She denies having INH and has "misplaced" her nebulizer and her home O2 is currently malfunctioning. 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 The patient is a poor historian. She complains of increasing shortness of breath, cough productive of yellow sputum since she had a fall from a stationary riding mower in the beginning of May after drinking too much at a [employer]. She injured her left ribs at that time and feels like she has been getting worse ever since. Chills, but no documented fever. She has severe COPD. She says she is supposed to be on oxygen at home but apparently has had some sort of problems with her equipment or tubing, and says that she just recently got a reinstituted. She says she used her mother's oxygen bottle last night. She did not wear her oxygen on her way to the hospital today and arrived short of breath, and hypoxic. She says she uses an inhaler, but needs a new one. She denies having a nebulizer at home. She admits that she still smokes 3 packs of cigarettes per day. Primary care provider is [facility] (Per Dr. Mcnair). 06/05 CXR: FINDINGS: The cardiomediastinal silhouette and pulmonary vascularity are within normal limits. COPD/emphysema. There are old fractures of the right 7th, 8th, and 9th ribs. No lobar consolidation or collapse. No acute bony abnormalities. IMPRESSION: COPD Dictated by: Tong Eugene MD Hospital Course Hospital Course: COPD-while inpatient received IV steroids breathing treatments IV fluids and IV antibiotics. Patient's up moving around in the room denies shortness of breath. Today patient sitting up on the side of the bed states she has been walking back and forth to the bathroom having no issues at this time. Will discharge home with follow-up in the office next week. Encourage patient to not smoke or drink. COPD-continue tapering steroids, add nebulizers, continue home O2, add inhaled daily preventative COPD med. Will continue Zithromax Objective Vital signs: Temp Pulse Resp BP Pulse Ox 98.1 F 99 H 20 129/80 95 06/07/19 08:00 06/07/19 08:00 06/07/19 08:10 06/07/19 08:00 06/07/19 08:10 no acute distress - *Routine HEENT Exam Head: Present: normocephalic Eye: Present: PERRL ENT: Present: mucous membranes moist - *Routine Respiratory Exam Present: wheezes - *Routine Cardiovascular Exam Present: RRR - *Routine Abdominal Exam Present: soft, normoactive bowel sounds - *Routine Extremities Exam Present: full ROM - *Routine Neurological Exam Present: alert, oriented X3 - Routine Psychiatric Exam Present: normal affect Results Labs on day of discharge: Preliminary micro results at discharge 06/05/19 08:49 Blood Culture - Preliminary Blood NO GROWTH AFTER 48 HOURS 06/05/19 08:49 Blood Culture - Preliminary Blood NO GROWTH AFTER 48 HOURS - Additional Comments Rounded with Dr. Goldman all orders per Jones DS: Diagnosis - Discharge Diagnosis (1) COPD exacerbation Status: Acute (2) Tobacco dependence syndrome Status: Acute (3) HLD (hyperlipidemia) Status: Acute (4) Respiratory failure with hypoxia Status: Acute Discharge Plan - Patient Discharge Instructions ACTIVITY: Continue current activity DIET: continue same diet Patient Instructions: Chronic Obstructive Pulmonary Disease, DI for Chronic Obstructive Pulmonary Disease, Be a Partner in Your COPD Care, COPD: When to Call for Help - Follow up Plan Follow up with: Gonzalez Goldman MD [Staff Physician] - 06/12/19 2:00 pm (appointment with jeremy) Disposition: Home, Self-Half-Way Medications: Home Medications Medication Instructions Recorded Confirmed Type Fluoxetine HCl [Prozac] 20 mg PO DAILY 10/24/17 06/05/19 History Gabapentin [Gabapentin 300mg Cap] 300 mg PO QID 10/24/17 06/05/19 History Naproxen 500 mg PO BID 10/24/17 06/05/19 History albuterol sulfate 90 mcg/actuation 2 inh INHALATION Q4-6H PRN 11/21/17 06/06/19 History breath activated powder inhaler aspirin 81 mg tablet,delayed 81 mg PO DAILY tab 11/21/17 06/05/19 History release mometasone-formoterol HFA 200 2 puff INHALATION Q12H 11/21/17 06/05/19 History mcg-5 mcg/actuation aerosol inhaler levetiracetam 750 mg tablet 750 mg PO BID 06/19/18 06/05/19 History ropinirole 1 mg tablet 1 mg PO HS 06/19/18 06/06/19 History lisinopril 20 mg tablet 20 mg PO BID #60 tab 02/25/19 06/05/19 Rx Azithromycin [Zithromax 250mg 250 mg PO DIRECTED 3 Days #3 tab 06/07/19 Rx tab] Fluticasone/Vilanterol [Breo 1 inh IH DAILY 30 Days #1 device 06/07/19 Rx Ellipta 100-25 Mcg INH] predniSONE [Deltasone 10mg tablet] 10 mg PO DAILY 9 Days #21 tab 06/07/19 Rx Prescriptions/Medication Reconciliation: New Fluticasone/Vilanterol [Breo Ellipta 100-25 Mcg INH] 1 inh IH DAILY 30 Days #1 device predniSONE [Deltasone 10mg tablet] 10 mg PO DAILY 9 Days #21 tab Azithromycin [Zithromax 250mg tab] 250 mg PO DIRECTED 3 Days #3 tab Continued albuterol sulfate 90 mcg/actuation breath activated powder inhaler 2 inh INHALATION Q4-6H PRN PRN Reason: SHORTNESS OF AIR ropinirole 1 mg tablet 1 mg PO HS lisinopril 20 mg tablet 20 mg PO BID #60 tab aspirin 81 mg tablet,delayed release 81 mg PO DAILY tab levetiracetam 750 mg tablet 750 mg PO BID Naproxen 500 mg PO BID Gabapentin [Gabapentin 300mg Cap] 300 mg PO QID Fluoxetine HCl [Prozac] 20 mg PO DAILY Discontinued mometasone-formoterol HFA 200 mcg-5 mcg/actuation aerosol inhaler 2 puff INHALATION Q12H - Problem Reconciliation Problems Reviewed?: Yes
== END 2019-06-07 12:50 | disposition home or self-care (01) ==
LOC: ER 08:36 → 2ND 10:36 → OB 11:56 → INTOOBSV 12:38 → OB 12:39
PROVIDERS: ADMIT Emergency Medicine; ATTEND Emergency Medicine
CPT/HCPCS: 71020; 71046; 71250; 80053; 83605; 85025; 87040; 90686; 93005; 94640; 94760; 94761; 96365; 96375; 99285; G0378; J0456

== ENCOUNTER 2020-04-09 15:35 | Inpatient (IN) | payer OTHER, SELFPAY ==
[2020-04-09] VITALS (13 sets, daily range): BP systolic 89–125; BP diastolic 59–81; PULSE 95–127; RESP 16–28; TEMP 37.3–37.8; O2SAT 95–100; BMI 15.0; BMI 17.4
--- NOTE | 2020-04-09 16:02 | CT_ITS ---
PROCEDURE: CT ABDOMEN PELVIS WO CON CLINICAL INDICATION: pain Generalized abdominal pain COMPARISON: CT ABDPELW/WO CT ABD PELVIS W/WO CONTRAST from 05/19/2014 TECHNIQUE: Axial images obtained with sagittal and coronal reformats. All CT scans at the facility use one or more dose reduction, viz: automated exposure control, ma/kV adjustment per patient size (including targeted exams where dose is matched to indication, i.e. head), or iterative reconstruction technique. FINDINGS: The liver, spleen, adrenal glands, and pancreas have an unremarkable unenhanced appearance. Multiple unopacified bowel loops in the abdomen or pelvis which could obscure or mimic pathology. If symptoms persist, consider repeat exam with IV and oral contrast.. The kidneys have an edematous appearance. No renal or ureteral calculi. There is mild stranding of the perinephric renal fat bilaterally. Pyelonephritis is considered. No evidence of appendicitis or diverticulitis. No acute bony anomaly. IMPRESSION: Findings suspicious for bilateral pyelonephritis. Multiple unopacified bowel loops in the abdomen or pelvis which could obscure or mimic pathology. If symptoms persist, consider repeat exam with IV and oral contrast. Dictated by: Tong Eugene MD 04/10/2020 09:10 Tong Eugene MD in [facility] 04/10/2020 09:10
[2020-04-09 16:10] LABS: Basophils # 0.1 K/mm3 (0-0.2); Basophils % 0.2 % (0.1-2.0); Eosinophils # 0.2 K/mm3 (0.0-0.4); Eosinophils % 0.7 % (0.1-12.0); Hematocrit 42.6 % (37.0-47.0); Hemoglobin 14.6 g/dL (12.2-16.2); Lymphocytes # 1.2 K/mm3 (0.7-4.5); Lymphocytes % 5.3 % (10-50); Mean Corpuscular HGB Conc 34.3 g/dL (31.8-35.4); Mean Corpuscular Volume 87.4 fl (81-99); Mean Platelet Volume 9.3 fl (7.4-10.4); Monocytes # 1.4 K/mm3 (0.1-1.0); Monocytes % 6.1 % (1.7-9.3); Neutrophils # 20.4 K/mm3 (1.8-7.8); Neutrophils % 87.8 % (37.0-80.0); Platelet Count 213 K/mm3 (142-424); Red Blood Count 4.87 M/mm3 (4.20-5.40); Red Cell Distribution Width 12.7 % (11.5-17.5); White Blood Count 23.3 K/mm3 (4.8-10.8)
--- NOTE | 2020-04-09 16:10 | HMH.EDABDPAI ---
ED Disposition Clinical Impression: Acute pyelonephritis, Acute sepsis, Hyponatremia [id number] kidney injury Qualifiers: Acute renal failure type: unspecified Chronic kidney disease stage: unspecified stage Qualified Code(s): N17.9 - Acute kidney failure, unspecified; N18.9 - Chronic kidney disease, unspecified Disposition: Admitted As Inpatient Condition on Discharge: Serious Referrals: Eneida Child [Primary Care Provider] - Time of Disposition: 18:07 - Critical Care Critical Care Time: Yes Attestation: On , the high probability of a clinically significant, sudden or life threatening deterioration of the following system(s) required my full and direct attention, intervention and personal management. The time I documented below is in addition to time spent performing reported procedures but includes the following listed in this critical care notation. total time: 30mins Vital system(s) involved:: Circulatory Failure, Metabolic Failure, Renal Failure, Shock (Septic) My critical care processes included: Assessment & monitoring of V/S, Initial and Re-exams, Data Review/Interpretation, Coordinating Care, Medication Orders and management, Documentation Medical Decision Making - Payam Inquiry Pt receiving controlled substance: Yes Payam was queried for this patient: No Reason not queried -: Emergent pt cond-no time Risks and benefits of using a controlled substance: were discussed with pt by me Vital Signs: 04/09/20 15:37 04/09/20 16:07 04/09/20 16:30 Temperature 100.1 F H Temperature Source Oral Pulse Rate [Left] 127 H 125 H 57 L Respiratory Rate 28 H Blood Pressure [Right Arm] 89/59 L 89/59 L 103/70 L Blood Pressure Mean [Right Arm] 69 69 81 Blood Pressure Source [Right Arm] Automatic Cuff Automatic Cuff Automatic Cuff Blood Pressure Position [Right Arm] Sitting Supine Supine 02 Sat by Pulse Oximetry 97 95 Oxygen Delivery Method Room Air Room Air 04/09/20 16:52 04/09/20 17:00 04/09/20 17:30 Temperature Temperature Source Pulse Rate [Left] 106 H 100 H 48 L Respiratory Rate Blood Pressure [Right Arm] 103/70 L 108/75 L 114/71 Blood Pressure Mean [Right Arm] 81 86 85 Blood Pressure Source [Right Arm] Automatic Cuff Automatic Cuff Blood Pressure Position [Right Arm] Sitting Supine Supine 02 Sat by Pulse Oximetry 100 67 L Oxygen Delivery Method Room Air Room Air - Lab Data Lab Results 04/09/20 16:02: WBC 23.3 H*, RBC 4.87, Hgb 14.6, Hct 42.6, MCV 87.4, MCH 30.0, MCHC 34.3, RDW 12.7, Plt Count 213, MPV 9.3, Neut % (Auto) 87.8 H, Lymph % (Auto) 5.3 L, Gates % (Auto) 6.1, Eos % (Auto) 0.7, Baso % (Auto) 0.2, Neut # (Auto) 20.4 H, Lymph # (Auto) 1.2, Gates # (Auto) 1.4 H, Eos # (Auto) 0.2, Baso # (Auto) 0.1, Total Counted 100, Neutrophils % (Manual) 85 H, Lymphocytes % (Manual) 7 L, Monocytes % (Manual) 8, Platelet Estimate Normal, RBC Morphology Normal 04/09/20 16:02: Sodium 121 L, Potassium 3.7, Chloride 82 L, Carbon Dioxide 26, Anion Gap 16.7 H, BUN 27 H, Creatinine 1.50 H, Estimated Creat Clear 28, Estimated GFR 37 L, Est GFR ( Amer) 44 L, Glucose 124 H, Calcium 9.0, Total Bilirubin 0.7, AST 34, ALT 24, Alkaline Phosphatase 101, Total Protein 7.4, Albumin 4.1, Globulin 3.3 H, Albumin/Globulin Ratio 1.2 04/09/20 16:02: SARS-CoV-2 IgG Ab (Rapid) Negative, SARS-CoV-2 IgM Ab (Rapid) Negative 04/09/20 16:30: Urine Color Yellow, Urine Appearance Cloudy, Urine pH 6.0, Ur Specific [place] 1.010, Urine Protein 2+, Urine Glucose (UA) Negative, Urine Ketones Negative, Urine Blood 2+, Urine Nitrate Negative, Urine Bilirubin Negative, Urine Urobilinogen 0.2, Ur Leukocyte Esterase 3+ A, Urine RBC 10-20, Urine WBC 20-50, Ur Squamous Epith Cells Occasional, Urine Bacteria 2+ 04/09/20 16:30: Lactate 1.9 Result diagrams: 04/09/20 16:02 04/09/20 16:02 Orders (Tests/Meds): ED MEDICATIONS Generic Name Dose Route Start Last Admin Trade Name Freq PRN Reason Stop Dose Admin Sodium Chloride 1,000 mls
[2020-04-09 16:11] LABS: MANUAL DIFFERENTIAL MANUAL DIFFERENTIAL (MANUAL DIFF)
[2020-04-09 16:13] LABS: Chloride 82 mmol/L (98-107); Potassium 3.7 mmoL/L (3.5-5.1); Sodium 121 mmol/L (136-145)
[2020-04-09 16:16] LABS: Alanine Aminotransferase 24 U/L (12-78); Albumin Level 4.1 g/dl (3.5-5.0); Albumin/Globulin Ratio 1.2 (1.1-1.8); Alkaline Phosphatase 101 U/L (38-126); Anion Gap 16.7 mEq/L (5-15); Aspartate Amino Transferase 34 U/L (14-36); Bilirubin,Total 0.7 mg/dl (0.2-1.3); Blood Urea Nitrogen 27 mg/dl (7-17); Carbon Dioxide 26 mmol/L (22.0-30.0); Creatinine Clearance Estimated 28 mL/min (50-200); Estimated Glomerular Filt Rate 37 ml/min (>60); GFR (African American) 44 ML/MIN (>60); Globulin 3.3 g/dL (1.3-3.2); Glucose 124 mg/dl (74-100); Total Protein,Serum 7.4 g/dl (6.3-8.2)
[2020-04-09 16:22] LABS: Lymphocytes % 7 % (10-50); Monocytes % 8 % (2-9); Neutrophils % 85 % (42-76); Platelet Estimate Normal; RBC Morphology Normal; Total Cells Counted 100
--- NOTE | 2020-04-09 16:22 | CT_ITS ---
PROCEDURE: CT CHEST WO CON CLINICAL INDICATION: cough, sepsis COMPARISON: CT CT CHEST WO CON from 06/06/[address] ABDOMEN PELVIS WO CON from 04/09/2020 TECHNIQUE: Axial images obtained with sagittal and coronal reformats. All CT scans at the facility use one or more dose reduction, viz: automated exposure control, ma/kV adjustment per patient size (including targeted exams where dose is matched to indication, i.e. head), or iterative reconstruction technique. FINDINGS: HEART AND MEDIASTINAL STRUCTURES: No mediastinal or hilar mass or adenopathy. Coronary artery calcifications are present. LUNGS AND PLEURAL SPACES: There are centrilobular emphysematous changes with bullous changes in the right upper lobe. There is mild bronchial thickening diffuse in nature. No lobar consolidation or collapse is evident. BONY STRUCTURES: There are degenerative changes in the midthoracic spine. There is an old left 9th rib fracture. UPPER ABDOMEN: Unremarkable. ADDITIONAL FINDINGS: No other significant abnormalities. IMPRESSION: Severe emphysema with bullous changes in the right apex Dictated by: Tong Eugene MD 04/10/2020 09:06 Tong Eugene MD in [facility] 04/10/2020 09:06
[2020-04-09 16:37] LABS: Microscopic, Urine URINE MICROSCOPIC (MICROSCOPIC)
[2020-04-09 16:43] LABS: Appearance,Urine CLOUDY (Clear); Bilirubin,Urine Negative (Negative); Blood, Urine 2+ (Negative); Color,Urine YELLOW (Yellow); Glucose,Urine (UA) Negative (Negative); Ketones,Urine Negative (Negative); Leukocyte Esterase,Urine 3+ (Negative); Nitrate,Urine Negative (Negative); Protein,Urine 2+ (Negative); Urobilinogen,Urine 0.2 EU/dl (0.2)
[2020-04-09 16:47] LABS: Lactic Acid 1.9 mmol/L (0.7-2.1)
[2020-04-09 16:50] LABS: Bacteria,Urine 2+ /lpf; Squamous Epithelial Cell,Urine Occasional #/hpf (0-5); WBC,Urine 20-50 #/hpf (0-3)
[2020-04-09 17:22] LABS: Coronavirus 19 IgG Antibody Negative (Negative); Coronavirus 19 IgM Antibody Negative (Negative)
--- NOTE | 2020-04-09 17:30 | PC.NURSE ---
PT AND FAMILY UPDATED ON PLAN OF CARE
--- NOTE | 2020-04-09 18:00 | PC.NURSE ---
PT AND FAMILY UPDATED ON PLAN OF CARE
--- NOTE | 2020-04-09 18:05 | PC.NURSE ---
REPORT CALLED TO FLOOR
--- NOTE | 2020-04-09 18:26 | PC.NURSE ---
Pt arrived to the floor at this time.
--- NOTE | 2020-04-09 21:27 | PC.NURSE ---
During assessment at start of shift SRNA was unable to get a O2 sat on pt. This RN noted cyanotic nail beds in hands and feet along w/ cool hands. Attempted to get a sat using forehead pulse ox monitor. Was getting between 78% and 83%. O2 was increased from 2LNC to 4LNC w/ sats from 88%-98%. Pt c/o mild SOB. Lungs auscultated and found to have expiratory wheezing and diminished breath sounds throughout. HR elevated at 125. BP stable. Calves soft and non-tender at this time. paged at 2029 and gave orders to give (2) breathing tx's [id number]. Also gave orders for LR at 100ml/hr for cont. infusion. 2114- Pt states she is felling a little bit better O2 sats between 92%-98% on 3LNC.
[2020-04-10] VITALS (7 sets, daily range): BP systolic 100–126; BP diastolic 56–70; PULSE 57–117; RESP 18–26; TEMP 36.4–37.9; O2SAT 91–100; BMI 18.3; BMI 18.1
--- NOTE | 2020-04-10 06:17 | PC.NURSE ---
pt has rested well since previous note, no complaints of SOA, o2 at 2L NC, tolerating well with o2 sats between 94% to 98%, seizure precautions in place for previous seizures and low sodium, pt is voiding with no complaints or issues
--- NOTE | 2020-04-10 07:16 | P.CONPHA_ITS ---
[facility] Pharmacy VTE Monitoring - Patient Demographics Admission date: 04/09/20 Report Date: 04/10/20 Time: 07:16 Allergies/Adverse Reactions: Patient Allergies No Known Allergies Allergy (Verified 06/12/19 14:12) Height: 1.52 m Weight: 42.383 kg Patient Problems: Current Active Problems Hyponatremia (Acute) Acute pyelonephritis (Acute) Acute sepsis (Acute) [id number] kidney injury (Acute) - VTE Risk Labs: VTE Related Lab Results Hgb 14.6 g/dL (12.2-16.2) 04/09/20 16:02 Hct 42.6 % (37.0-47.0) 04/09/20 16:02 Plt Count 213 K/mm3 (142-424) 04/09/20 16:02 BUN 27 mg/dl (7-17) H 04/09/20 16:02 Creatinine 1.50 mg/dl (0.52-1.04) H 04/09/20 16:02 Estimated Creat Clear 28 mL/min (50-200) 04/09/20 16:02 VTE Score: 3 VTE Risk Level: Low Risk - Prophylaxis VTE Prophylaxis Ordered?: Yes Types of VTE Prophylaxis: TEDS Knee High Location of Applied Device: Bilateral Lower Extremeties
--- NOTE | 2020-04-10 07:50 | HMH.PHAINT ---
MEDICATION RECONCILIATION COMPLETED ON PATIENT USING EXTERNAL FILL HISTORY FROM PHARMACY AND VIA [facility] REPORT FOR GABAPENTIN. -[facility] [place]
--- NOTE | 2020-04-10 08:31 | HMH.HP ---
*Admission Date: 04/09/20 *Chief complaint: uti *History of present illness: 49-year-old female presented to the emergency department with abdominal discomfort. Patient has had this for the last 3 days. Is located in the right flank and radiating down to her right groin. She has had some burning with urination and decreased urinary frequency and urgency. denies burninf. History of a hysterectomy. No headache, no change in vision, no focal weakness. pt admitted for uti plim pos blood cx. [facility] History I have reviewed the patient's past medical history: Yes Medical History: Reports:: Chronic Obstructive Pulmonary Disease (COPD), Coronary Artery Disease, Hypertension Denies:: Cancer, Diabetes Mellitus Type 1, Diabetes Mellitus Type 2, MRSA *Have you ever received a pneumonia vaccine?: No *Have you received a flu vaccine this season?: No Other Medical History: Reports: Anemia, Other Other Surgeries: Yes: Hysterectomy-Total Amputation: No Fractures: No - *Social History Last grade of school completed: 9th or 10th Smoking Status: Current every day smoker Tobacco Type: cigarettes # Packs/Day (cigarettes): 3 Alcohol Intake: former Alcohol Intake Frequency:: a few times a month Substance Use Type: denies use *Occupational Status:: disabled Housing: other *Travel in the last 8 weeks: None Family Hx:: Asthma, Cancer, Coronary Artery Disease Review of Systems - Review of Systems Review of systems:: pertinent systems reviewed and negative unless documented below - Constitutional Reports fatigue, Denies body ache(s) - Eyes Denies blurry vision - ENT Denies bleeding gums, Denies throat swelling - *Cardiovascular Reports shortness of breath, Denies chest pain with activity - *Respiratory Reports shortness of breath with activity, Denies chest congestion - *Gastrointestinal Reports nausea, Denies vomiting - *Genitourinary Reports difficulty starting urination, Reports urinary urgency - *Musculoskeletal Denies decreased muscle mass - Integumentary/Breasts Denies change in hair, Denies rash - *Neurologic Denies headache(s) - Psychiatric Denies sensing things others do not sense - Endocrine Denies increased thirst - Hematologic/Lymphatic Denies enlarged lymph nodes - Allergic/Immunologic Denies itchy eyes Meds Home Medications Medication Instructions Recorded Confirmed Type levetiracetam 750 mg tablet 750 mg PO BID 06/19/18 04/09/20 History Albuterol Sulfate [Ventolin HFA 1 puff INHALATION Q6H 04/09/20 04/09/20 History Inhaler] lisinopriL [Prinivil 20mg Tablet] 20 mg PO BID 04/09/20 04/09/20 History Ropinirole HCl [Requip 1mg tablet] 1 mg PO HS 04/10/20 04/10/20 History Allergies Allergy/AdvReac Type Severity Reaction Status Date / Time No Known Allergies Allergy Verified 06/12/19 14:12 Exam Vital signs and Labs for Last 24 Hours: Temp Pulse Resp BP Pulse Ox 100.0 F H 108 H 22 120/70 91 L 04/10/20 08:00 04/10/20 08:00 04/10/20 08:00 04/10/20 08:00 04/10/20 08:00 Laboratory Results - last 24 hr 04/09/20 16:02: WBC 23.3 H*, RBC 4.87, Hgb 14.6, Hct 42.6, MCV 87.4, MCH 30.0, MCHC 34.3, RDW 12.7, Plt Count 213, MPV 9.3, Neut % (Auto) 87.8 H, Lymph % (Auto) 5.3 L, Teller % (Auto) 6.1, Eos % (Auto) 0.7, Baso % (Auto) 0.2, Neut # (Auto) 20.4 H, Lymph # (Auto) 1.2, Teller # (Auto) 1.4 H, Eos # (Auto) 0.2, Baso # (Auto) 0.1, Total Counted 100, Neutrophils % (Manual) 85 H, Lymphocytes % (Manual) 7 L, Monocytes % (Manual) 8, Platelet Estimate Normal, RBC Morphology Normal 04/09/20 16:02: Sodium 121 L, Potassium 3.7, Chloride 82 L, Carbon Dioxide 26, Anion Gap 16.7 H, BUN 27 H, Creatinine 1.50 H, Estimated Creat Clear 28, Estimated GFR 37 L, Est GFR ( Amer) 44 L, Glucose 124 H, Calcium 9.0, Total Bilirubin 0.7, AST 34, ALT 24, Alkaline Phosphatase 101, Total Protein 7.4, Albumin 4.1, Globulin 3.3 H, Albumin/Globulin Ratio 1.2 04/09/20 16:02: SARS-CoV-2 IgG Ab (Rapid) Negative,
--- NOTE | 2020-04-10 12:02 | HMH.PHACONS ---
- Pharmacy Consult Date: 04/10/20 Time: 12:02 Referring provider: DR. DUMONT Reason for Consult:: VANCOMYCIN DOSING Allergies and ADEs:: Allergies Allergy/AdvReac Type Severity Reaction Status Date / Time No Known Allergies Allergy Verified 06/12/19 14:12 Home Medications:: Home Medications Medication Instructions Recorded Confirmed Type levetiracetam 750 mg tablet 750 mg PO BID 06/19/18 04/09/20 History Albuterol Sulfate [Ventolin HFA 1 puff INHALATION Q6H 04/09/20 04/09/20 History Inhaler] lisinopriL [Prinivil 20mg Tablet] 20 mg PO BID 04/09/20 04/09/20 History Ropinirole HCl [Requip 1mg tablet] 1 mg PO HS 04/10/20 04/10/20 History Height: 1.52 m Weight: 42 kg Laboratory Results:: Laboratory Results - last 24 hr 04/09/20 16:02: WBC 23.3 H*, RBC 4.87, Hgb 14.6, Hct 42.6, MCV 87.4, MCH 30.0, MCHC 34.3, RDW 12.7, Plt Count 213, MPV 9.3, Neut % (Auto) 87.8 H, Lymph % (Auto) 5.3 L, Hancock % (Auto) 6.1, Eos % (Auto) 0.7, Baso % (Auto) 0.2, Neut # (Auto) 20.4 H, Lymph # (Auto) 1.2, Hancock # (Auto) 1.4 H, Eos # (Auto) 0.2, Baso # (Auto) 0.1, Total Counted 100, Neutrophils % (Manual) 85 H, Lymphocytes % (Manual) 7 L, Monocytes % (Manual) 8, Platelet Estimate Normal, RBC Morphology Normal 04/09/20 16:02: Sodium 121 L, Potassium 3.7, Chloride 82 L, Carbon Dioxide 26, Anion Gap 16.7 H, BUN 27 H, Creatinine 1.50 H, Estimated Creat Clear 28, Estimated GFR 37 L, Est GFR ( Amer) 44 L, Glucose 124 H, Calcium 9.0, Total Bilirubin 0.7, AST 34, ALT 24, Alkaline Phosphatase 101, Total Protein 7.4, Albumin 4.1, Globulin 3.3 H, Albumin/Globulin Ratio 1.2 04/09/20 16:02: SARS-CoV-2 IgG Ab (Rapid) Negative, SARS-CoV-2 IgM Ab (Rapid) Negative 04/09/20 16:30: Urine Color Yellow, Urine Appearance Cloudy, Urine pH 6.0, Ur Specific [place] 1.010, Urine Protein 2+, Urine Glucose (UA) Negative, Urine Ketones Negative, Urine Blood 2+, Urine Nitrate Negative, Urine Bilirubin Negative, Urine Urobilinogen 0.2, Ur Leukocyte Esterase 3+ A, Urine RBC 10-20, Urine WBC 20-50, Ur Squamous Epith Cells Occasional, Urine Bacteria 2+ 04/09/20 16:30: Lactate 1.9 Medical History: Reports:: Chronic Obstructive Pulmonary Disease (COPD), Coronary Artery Disease, Hypertension Denies:: Cancer, Diabetes Mellitus Type 1, Diabetes Mellitus Type 2, MRSA Assessment and Plan - Assessment and plan all Dx Assessment and Plan for all problems:: BASED ON PATIENT FACTORS, RECOMMEND VANCOMYCIN 750 MG IV Q36H. PHARMACY WILL FOLLOW DAILY AND ADJUST APPROPRIATE.
[2020-04-10 14:07] LABS: Chloride 93 mmol/L (98-107)
[2020-04-10 14:08] LABS: Potassium 3.5 mmoL/L (3.5-5.1); Sodium 122 mmol/L (136-145)
[2020-04-10 14:11] LABS: Anion Gap 9.5 mEq/L (5-15); Blood Urea Nitrogen 19 mg/dl (7-17); Carbon Dioxide 23 mmol/L (22.0-30.0); Creatinine Clearance Estimated 41 mL/min (50-200); Estimated Glomerular Filt Rate 53 ml/min (>60); GFR (African American) 64 ML/MIN (>60); Glucose 168 mg/dl (74-100)
[2020-04-10 14:16] LABS: Basophils % 0.1 % (0.1-2.0); Eosinophils % 0.1 % (0.1-12.0); Hematocrit 30.8 % (37.0-47.0); Lymphocytes # 0.9 K/mm3 (0.7-4.5); Lymphocytes % 6.2 % (10-50); Mean Corpuscular HGB Conc 32.6 g/dL (31.8-35.4); Mean Corpuscular Hemoglobin 29.4 pg (27.0-31.2); Mean Platelet Volume 9.4 fl (7.4-10.4); Monocytes # 0.7 K/mm3 (0.1-1.0); Monocytes % 4.6 % (1.7-9.3); Neutrophils # 13.1 K/mm3 (1.8-7.8); Platelet Count 136 K/mm3 (142-424); Red Blood Count 3.42 M/mm3 (4.20-5.40); Red Cell Distribution Width 13.4 % (11.5-17.5); White Blood Count 14.8 K/mm3 (4.8-10.8)
[2020-04-10 14:17] LABS: MANUAL DIFFERENTIAL MANUAL DIFFERENTIAL (MANUAL DIFF)
[2020-04-10 14:30] LABS: Calcium 7.5 mg/dl (8.4-10.2)
[2020-04-10 14:35] LABS: Eosinophils % 1 % (0-3); Lymphocytes % 5 % (10-50); Monocytes % 2 % (2-9); Neutrophils % 92 % (42-76); Platelet Estimate Slight Decrease; RBC Morphology Normal; Total Cells Counted 100
--- NOTE | 2020-04-10 15:08 | PC.NURSE ---
called and spoke with christian dunaway rn at dr reinoso office. Patient states she is in pain and it feels like a boulder is in her abdomen. tylenol is not due until 1700 however, states that the tylenol is not helping at all requesting something else for pain.
[2020-04-10 18:07] LABS: Basophils % 0.1 % (0.1-2.0); Eosinophils % 0.3 % (0.1-12.0); Hematocrit 31.8 % (37.0-47.0); Hemoglobin 10.8 g/dL (12.2-16.2); Lymphocytes # 1.1 K/mm3 (0.7-4.5); Lymphocytes % 7.2 % (10-50); Mean Corpuscular Hemoglobin 29.8 pg (27.0-31.2); Mean Corpuscular Volume 87.8 fl (81-99); Mean Platelet Volume 9.4 fl (7.4-10.4); Monocytes # 0.8 K/mm3 (0.1-1.0); Monocytes % 5.4 % (1.7-9.3); Neutrophils # 12.6 K/mm3 (1.8-7.8); Neutrophils % 86.9 % (37.0-80.0); Platelet Count 146 K/mm3 (142-424); Red Blood Count 3.62 M/mm3 (4.20-5.40); Red Cell Distribution Width 13.4 % (11.5-17.5); White Blood Count 14.5 K/mm3 (4.8-10.8)
[2020-04-10 18:12] LABS: Chloride 93 mmol/L (98-107); Sodium 125 mmol/L (136-145)
[2020-04-10 18:13] LABS: Potassium 3.5 mmoL/L (3.5-5.1)
[2020-04-10 18:15] LABS: Anion Gap 10.5 mEq/L (5-15); Blood Urea Nitrogen 18 mg/dl (7-17); Carbon Dioxide 25 mmol/L (22.0-30.0); Creatinine Clearance Estimated 37 mL/min (50-200); Estimated Glomerular Filt Rate 48 ml/min (>60); GFR (African American) 58 ML/MIN (>60)
[2020-04-10 18:16] LABS: Calcium 7.6 mg/dl (8.4-10.2); Glucose 117 mg/dl (74-100)
--- NOTE | 2020-04-10 19:56 | PC.NURSE ---
Pt had complaints of abdominal pain earlier this shift. PRN med given per MAR w/ adequate relief. Ambulates independently w/ no safety concerns. Voiding w/o difficulty. Remains on 2.5 L NC w/ no s/s of resp distress. Family at bedside. Report given to Sade Winslow RN.
--- NOTE | 2020-04-10 21:00 | PC.NURSE ---
Held Lisinopril at this time due to b/p noted at 102/56 and hr noted at 57. Pt is aware.
[2020-04-11] VITALS (8 sets, daily range): BP systolic 85–118; BP diastolic 53–69; PULSE 66–108; RESP 20–24; TEMP 36.6–37; O2SAT 90–96; BMI 19.9
--- NOTE | 2020-04-11 03:31 | PC.NURSE ---
decreased o2 from 2.5 liters to 2 liters per nc at this time. pt lying in bed resting with eyes closed. 02 sats wnl. will continue to monitor.
--- NOTE | 2020-04-11 03:45 | PC.NURSE ---
Pt has rested well with eyes closed this shift. Alert and oriented x4. C/o lower abdominal pain upon light palpation. Describes pain as a cramp. Administered Tylenol per mar x1. Upon reassessment pt states adequate pain relief. No further c/o pain thus far. Pt up to shower this shift. Ambulates well independently. SOB noted with ambulation to an from bathroom. Bilateral lungs noted with crackles, wheezing t/o and audible wheezing upon auscultation. Administered breathing tx per RT. O2 sats noted 96% or greater with 2.5 lnc this shift. Decreased O2 to 2 lnc this am. Will reassess O2 sats upon rounding. No respiratory distress noted at this time. Pt reports last bm noted on 04/10 during the day. Adequate urine output, noted clear and bright yellow in color. Refused teds. Mother remains at bedside t/o shift. VSS. Remains safe. Call light within reach. Will continue to monitor.
--- NOTE | 2020-04-11 09:34 | HMH.ACPN2 ---
Internal Medicine - PN: Subj *Date: 04/12/20 *Time: 08:52 Interval history: doing better - discussed tob use Exam Vital signs and Labs for Last 24 Hours: Temp Pulse Resp BP Pulse Ox 98.6 F 100 H 24 85/66 L 90 L 04/11/20 08:00 04/11/20 08:00 04/11/20 08:00 04/11/20 08:00 04/11/20 08:00 Laboratory Results - last 24 hr 04/10/20 13:48: WBC 14.8 H D, RBC 3.42 L D, Hgb 10.0 L D, Hct 30.8 L, MCV 90.0, MCH 29.4, MCHC 32.6, RDW 13.4, Plt Count 136 L D, MPV 9.4, Neut % (Auto) 89.0 H, Lymph % (Auto) 6.2 L, Emery % (Auto) 4.6, Eos % (Auto) 0.1, Baso % (Auto) 0.1, Neut # (Auto) 13.1 H, Lymph # (Auto) 0.9, Emery # (Auto) 0.7, Eos # (Auto) 0.0, Baso # (Auto) 0.0, Total Counted 100, Neutrophils % (Manual) 92 H, Lymphocytes % (Manual) 5 L, Monocytes % (Manual) 2, Eosinophils % (Manual) 1, Platelet Estimate Slight decrease, RBC Morphology Normal 04/10/20 13:48: Sodium 122 L, Potassium 3.5, Chloride 93 L, Carbon Dioxide 23, Anion Gap 9.5, BUN 19 H D, Creatinine 1.10 H D, Estimated Creat Clear 41, Estimated GFR 53 L, Est GFR ( Amer) 64 D, Glucose 168 H D, Calcium 7.5 L D 04/10/20 18:00: WBC 14.5 H, RBC 3.62 L, Hgb 10.8 L, Hct 31.8 L, MCV 87.8, MCH 29.8, MCHC 34.0, RDW 13.4, Plt Count 146, MPV 9.4, Neut % (Auto) 86.9 H, Lymph % (Auto) 7.2 L, Emery % (Auto) 5.4, Eos % (Auto) 0.3, Baso % (Auto) 0.1, Neut # (Auto) 12.6 H, Lymph # (Auto) 1.1, Emery # (Auto) 0.8, Eos # (Auto) 0.0, Baso # (Auto) 0.0 04/10/20 18:00: Sodium 125 L, Potassium 3.5, Chloride 93 L, Carbon Dioxide 25, Anion Gap 10.5, BUN 18 H, Creatinine 1.20 H, Estimated Creat Clear 37, Estimated GFR 48 L, Est GFR ( Amer) 58 L, Glucose 117 H D, Calcium 7.6 L I & O for Last 24 hours: Intake & Output 04/08/20 04/09/20 04/10/20 04/11/20 11:59 11:59 11:59 11:59 Intake Total 1436 / 1436 3066 / 3066 Output Total 650 / 650 Balance 1436 / 1436 2416 / 2416 Weight 92 lb 9.506 oz 101 lb 8 oz Microbiology Reports for the Last 24 Hours: Microbiology 04/09/20 16:30 Blood Blood Culture - Preliminary Gram Negative Rods 04/09/20 16:30 Blood Blood Culture - Preliminary Gram Negative Rods 04/09/20 16:30 Urine,Catheterized Urine Culture - Final Escherichia coli - Constitutional no acute distress, thin - *Routine HEENT Exam Head: Present: normocephalic Eye: Present: EOMI, PERRL ENT: Present: mucous membranes dry - *Routine Neck Exam Present: supple - *Routine Respiratory Exam Present: decreased breath sounds - *Routine Cardiovascular Exam Present: RRR, murmur - *Routine Abdominal Exam Present: soft - *Routine Extremities Exam Absent: calf tenderness - *Routine Skin Exam Present: intact - *Routine Neurological Exam Present: alert, CN II-XII intact - Routine Psychiatric Exam Present: anxious Assessment and Plan (1) Acute pyelonephritis Current visit: Yes Status: Acute Category: Medical Code(s): N10 - Acute pyelonephritis (2) Acute sepsis Current visit: Yes Status: Acute Category: Medical Code(s): A41.9 - Sepsis, unspecified organism (3) Lzjaf-ki-pfbfjhr kidney injury Current visit: Yes Status: Acute Qualifiers: Acute renal failure type: unspecified Chronic kidney disease stage: unspecified stage Qualified Code(s): N17.9 - Acute kidney failure, unspecified; N18.9 - Chronic kidney disease, unspecified Category: Medical Code(s): N17.9 - Acute kidney failure, unspecified; N18.9 - Chronic kidney disease, unspecified (4) COPD (chronic obstructive pulmonary disease) Current visit: Yes Status: Acute Qualifiers: COPD type: unspecified COPD Qualified Code(s): J44.9 - Chronic obstructive pulmonary disease, unspecified Category: Medical Code(s): J44.9 - Chronic obstructive pulmonary disease, unspecified (5) E. coli UTI (urinary tract infection) Current visit: Yes Status: Acute Category: Medica
--- NOTE | 2020-04-11 15:41 | PC.NURSE ---
PT HAS BEEN AO*4 T/O SHIFT, LUNG SOUNDS BILATERAL WHEEZES ON INSPIRATION AND EXPIRATION, PT CURRENTLY ON 2L NC HAS NOT C/O SOA T/O SHIFT BUT AUDIBLE WHEEZING CAN BE HEARD WHEN SHE EXERTS HERSELF. PT HAS COMPLAINED OF MILD ABDOMINAL PAIN RATED ON A 5/10 ON NUMERICAL PAIN SCALE, ABDOMEN SOFT FLAT AND TENDER ON PALPATION. PT STATES NO PAIN WITH ELIMINATION, MEDICATED WITH PRN TYLENOL ADMIN PER OCT, EFFECTIVENESS NOTED. NO NEEDS AT THIS TIME, WILL CONTINUE TO MONITOR
[2020-04-12] VITALS (10 sets, daily range): BP systolic 100–133; BP diastolic 50–86; PULSE 94–110; RESP 20–22; TEMP 36.5–37.2; O2SAT 91–98; BMI 20.9
--- NOTE | 2020-04-12 04:16 | PC.NURSE ---
No changes overnight. Pt slept well w/o complaints reported to staff. Remains on 2LNC and tolerating well. Voiding w/o reported issues. Family has been present at bedside throughout the night.
--- NOTE | 2020-04-12 10:10 | HMH.ACPN2 ---
Internal Medicine - PN: Subj *Date: 04/13/20 *Time: 14:20 Interval history: doing better at this time - Exam Vital signs and Labs for Last 24 Hours: Temp Pulse Resp BP Pulse Ox 98.7 F 98 H 22 100/63 L 95 04/12/20 07:43 04/12/20 07:43 04/12/20 07:43 04/12/20 07:43 04/12/20 07:43 I & O for Last 24 hours: Intake & Output 04/09/20 04/10/20 04/11/20 04/12/20 11:59 11:59 11:59 11:59 Intake Total 1436 / 1436 3066 / 3066 3452 / 3452 Output Total 650 / 650 2250 / 2250 Balance 1436 / 1436 2416 / 2416 1202 / 1202 Weight 92 lb 9.506 oz 101 lb 8 oz 106 lb 9 oz Microbiology Reports for the Last 24 Hours: Microbiology 04/09/20 16:30 Blood Blood Culture - Preliminary Gram Negative Rods 04/09/20 16:30 Blood Blood Culture - Preliminary Gram Negative Rods 04/09/20 16:30 Urine,Catheterized Urine Culture - Final Escherichia coli - Constitutional no acute distress - *Routine HEENT Exam Head: Present: normocephalic Eye: Present: EOMI, PERRL ENT: Present: mucous membranes dry - *Routine Neck Exam Present: supple - *Routine Respiratory Exam Present: CTA bilaterally - *Routine Cardiovascular Exam Present: RRR, murmur - *Routine Abdominal Exam Present: soft - *Routine Extremities Exam Present: full ROM - *Routine Skin Exam Present: intact - *Routine Neurological Exam Present: alert, oriented X3, CN II-XII intact - Routine Psychiatric Exam Present: normal affect Assessment and Plan (1) Acute pyelonephritis Current visit: Yes Status: Acute Category: Medical Code(s): N10 - Acute pyelonephritis (2) Acute sepsis Current visit: Yes Status: Acute Category: Medical Code(s): A41.9 - Sepsis, unspecified organism (3) Oguur-am-xssplwg kidney injury Current visit: Yes Status: Acute Qualifiers: Acute renal failure type: unspecified Chronic kidney disease stage: unspecified stage Qualified Code(s): N17.9 - Acute kidney failure, unspecified; N18.9 - Chronic kidney disease, unspecified Category: Medical Code(s): N17.9 - Acute kidney failure, unspecified; N18.9 - Chronic kidney disease, unspecified (4) COPD (chronic obstructive pulmonary disease) Current visit: Yes Status: Acute Qualifiers: COPD type: unspecified COPD Qualified Code(s): J44.9 - Chronic obstructive pulmonary disease, unspecified Category: Medical Code(s): J44.9 - Chronic obstructive pulmonary disease, unspecified (5) E. coli UTI (urinary tract infection) Current visit: Yes Status: Acute Category: Medical Code(s): N39.0 - Urinary tract infection, site not specified; B96.20 - Unspecified Escherichia coli [E. coli] as the cause of diseases classified elsewhere (6) E coli bacteremia Current visit: Yes Status: Acute Category: Medical Code(s): R78.81 - Bacteremia; B96.20 - Unspecified Escherichia coli [E. coli] as the cause of diseases classified elsewhere
--- NOTE | 2020-04-12 11:09 | P.PN_ITS ---
Internal Medicine - PN: Subj *Date: 04/12/20 *Time: 11:09 Exam Vital signs and Labs for Last 24 Hours: Temp Pulse Resp BP Pulse Ox 98.7 F 98 H 22 100/63 L 95 04/12/20 07:43 04/12/20 07:43 04/12/20 07:43 04/12/20 07:43 04/12/20 07:43 I & O for Last 24 hours: Intake & Output 04/09/20 04/10/20 04/11/20 04/12/20 23:59 23:59 23:59 23:59 Intake Total 3042 / 3042 3937 / 3937 975 / 975 Output Total 650 / 650 850 / 850 1400 / 1400 Balance 2392 / 2392 3087 / 3087 -425 / -425 Weight 40.511 kg 42 kg 46.04 kg 48.336 kg Microbiology Reports for the Last 24 Hours: Microbiology 04/09/20 16:30 Blood Blood Culture - Preliminary Gram Negative Rods 04/09/20 16:30 Blood Blood Culture - Preliminary Gram Negative Rods Assessment and Plan (1) Acute pyelonephritis Current visit: Yes Status: Acute Category: Medical Code(s): N10 - Acute pyelonephritis (2) Acute sepsis Current visit: Yes Status: Acute Category: Medical Code(s): A41.9 - Sepsis, unspecified organism (3) Zdndl-ql-uvytmis kidney injury Current visit: Yes Status: Acute Qualifiers: Acute renal failure type: unspecified Chronic kidney disease stage: unspecified stage Qualified Code(s): N17.9 - Acute kidney failure, unspecified; N18.9 - Chronic kidney disease, unspecified Category: Medical Code(s): N17.9 - Acute kidney failure, unspecified; N18.9 - Chronic kidney disease, unspecified (4) COPD (chronic obstructive pulmonary disease) Current visit: Yes Status: Acute Qualifiers: COPD type: unspecified COPD Qualified Code(s): J44.9 - Chronic obstructive pulmonary disease, unspecified Category: Medical Code(s): J44.9 - Chronic obstructive pulmonary disease, un specified (5) E. coli UTI (urinary tract infection) Current visit: Yes Status: Acute Category: Medical Code(s): N39.0 - Urinary tract infection, site not specified; B96.20 - Unspecified Escherichia coli [E. coli] as the cause of diseases classified elsewhere (6) E coli bacteremia Current visit: Yes Status: Acute Category: Medical Code(s): R78.81 - Bact eremia; B96.20 - Unspecified Escherichia coli [E. coli] as the cause of diseases classified elsewhere The patient's infection will respond to the chosen ABx?: Yes Is the patient receiving the right drug, dose, and route?: Yes Could a more targeted ABx be ordered?: No (CULTURE E COLI SENSITIVE TO CEFEPIME)
[2020-04-12 17:13] LABS: Vancomycin,Trough < 5.0 ug/mL (5.0-10.0)
--- NOTE | 2020-04-12 18:22 | PC.NURSE ---
Pt has been pleasant and cooperative this shift. A&O X4. Pt has complained of pain X2 and has been medicated with Tylenol/Codeine per OCT. Pt complains of SOA on exertion, but O2 sats. are maintaining >90% on 3 LPM via NC. Lung sounds reveal wheezing. Pt ambulates independently to the bathroom and voids without issue. No BM this shift. Skin is C/D/I. Edema noted to labia and pt expressed concern regarding IV fluid overload. Pt has refused IVF for the past few hours. Appetite is adequate and pt eats the majority of all meals. 20 G peripheral IV in the RT AC is patent and SL at this time. VSS. Call light within reach. Will continue to monitor.
[2020-04-13] VITALS (9 sets, daily range): BP systolic 112–131; BP diastolic 71–79; PULSE 54–113; RESP 16–24; TEMP 36.7–37.2; O2SAT 84–100; BMI 20.7
--- NOTE | 2020-04-13 05:02 | PC.NURSE ---
No acute changes. Pt remains on 2LNC and tolerating well.RA sat of 84% obtained at rest. Pt still has c/o SOA w/ exertion and bilateral posterior bases reveal expiratory wheezing on assessment. She is tolerating PRN breathing tx's. Pt ambulating to BR independently and voiding w/o issues. Pt has had c/o pain to abdomen and a pulling sensation in tashia area. Medicated per OCT w/ relief. LR has been infusing t/o the shift at 100ml/hr. Will continue to monitor.
--- NOTE | 2020-04-13 08:40 | HMH.PHACONS ---
- Pharmacy Consult Date: 04/13/20 Time: 08:40 Referring provider: DR. DUMONT Reason for Consult:: VANCOMYCIN TROUGH LEVEL Allergies and ADEs:: Allergies Allergy/AdvReac Type Severity Reaction Status Date / Time No Known Allergies Allergy Verified 06/12/19 14:12 Home Medications:: Home Medications Medication Instructions Recorded Confirmed Type levetiracetam 750 mg tablet 750 mg PO BID 06/19/18 04/09/20 History Albuterol Sulfate [Ventolin HFA 1 puff INHALATION Q6H 04/09/20 04/09/20 History Inhaler] lisinopriL [Prinivil 20mg Tablet] 20 mg PO BID 04/09/20 04/09/20 History Ropinirole HCl [Requip 1mg tablet] 1 mg PO HS 04/10/20 04/10/20 History Height: 1.52 m Weight: 47.854 kg Laboratory Results:: Laboratory Results - last 24 hr 04/12/20 16:30: Vancomycin Trough < 5.0 L Medical History: Reports:: Chronic Obstructive Pulmonary Disease (COPD), Coronary Artery Disease, Hypertension Denies:: Cancer, Diabetes Mellitus Type 1, Diabetes Mellitus Type 2, MRSA Assessment and Plan (1) Acute pyelonephritis Current visit: Yes Status: Acute Category: Medical Code(s): N10 - Acute pyelonephritis (2) Acute sepsis Current visit: Yes Status: Acute Category: Medical Code(s): A41.9 - Sepsis, unspecified organism (3) Ochqq-ar-liwftng kidney injury Current visit: Yes Status: Acute Qualifiers: Acute renal failure type: unspecified Chronic kidney disease stage: unspecified stage Qualified Code(s): N17.9 - Acute kidney failure, unspecified; N18.9 - Chronic kidney disease, unspecified Category: Medical Code(s): N17.9 - Acute kidney failure, unspecified; N18.9 - Chronic kidney disease, unspecified (4) COPD (chronic obstructive pulmonary disease) Current visit: Yes Status: Acute Qualifiers: COPD type: unspecified COPD Qualified Code(s): J44.9 - Chronic obstructive pulmonary disease, unspecified Category: Medical Code(s): J44.9 - Chronic obstructive pulmonary disease, unspecified (5) E. coli UTI (urinary tract infection) Current visit: Yes Status: Acute Category: Medical Code(s): N39.0 - Urinary tract infection, site not specified; B96.20 - Unspecified Escherichia coli [E. coli] as the cause of diseases classified elsewhere (6) E coli bacteremia Current visit: Yes Status: Acute Category: Medical Code(s): R78.81 - Bacteremia; B96.20 - Unspecified Escherichia coli [E. coli] as the cause of diseases classified elsewhere - Assessment and plan all Dx Assessment and Plan for all problems:: BASED ON PATIENT FACTORS AND VANCOMYCIN TROUGH LEVEL, RECOMMEND CHANGING DOSE AND INTERVAL TO VANCOMYCIN 1 GM IV Q24H. PHARMACY WILL CONTINUE TO MONITOR DAILY AND ADJUST APPROPRIATE.
--- NOTE | 2020-04-13 13:14 | HMH.ACPN2 ---
Internal Medicine - PN: Subj *Date: 04/13/20 *Time: 18:15 Interval history: T-max is 99, systolic pressures have been decent. Patient did have an episode of dyspnea and desaturation earlier today, she responded nicely to Lasix IV. Echo was done and is pending. Urine and blood cultures are both positive for a pansensitive E. coli. She is on cefepime and Vanco. Exam Vital signs and Labs for Last 24 Hours: Temp Pulse Resp BP Pulse Ox 98.1 F 113 H 22 112/71 94 L 04/13/20 08:00 04/13/20 08:00 04/13/20 08:00 04/13/20 08:00 04/13/20 08:00 Laboratory Results - last 24 hr 04/12/20 16:30: Vancomycin Trough < 5.0 L I & O for Last 24 hours: Intake & Output 04/10/20 04/11/20 04/12/20 04/13/20 23:59 23:59 23:59 23:59 Intake Total 3042 / 3042 3937 / 3937 2008 1554 / 1554 Output Total 650 / 650 850 / 850 3300 / 3300 1400 / 1400 Balance 2392 / 2392 3087 / 3087 -1291 / -1291 154 / 154 Weight 92 lb 9.506 oz 101 lb 8 oz 106 lb 9 oz 105 lb 8 oz Microbiology Reports for the Last 24 Hours: Microbiology 04/09/20 16:30 Blood Blood Culture - Preliminary Gram Negative Rods - Constitutional no acute distress - *Routine HEENT Exam Head: Present: normocephalic Eye: Present: EOMI, PERRL ENT: Present: mucous membranes moist - *Routine Neck Exam Present: supple. Absent: lymphadenopathy - *Routine Respiratory Exam Present: diminished air movement. Absent: accessory muscle use - *Routine Cardiovascular Exam Present: RRR - *Routine Abdominal Exam Present: soft, normoactive bowel sounds. Absent: tenderness - *Routine Extremities Exam Absent: cyanosis, clubbing, edema, calf tenderness - *Routine Skin Exam Present: warm. Absent: jaundice, rash - *Routine Neurological Exam Present: alert, oriented X3 Assessment and Plan (1) Acute pyelonephritis Current visit: Yes Status: Acute Category: Medical Code(s): N10 - Acute pyelonephritis (2) Acute sepsis Current visit: Yes Status: Acute Category: Medical Code(s): A41.9 - Sepsis, unspecified organism (3) Yguwy-tz-[id number] kidney injury Current visit: Yes Status: Acute Qualifiers: Acute renal failure type: unspecified Chronic kidney disease stage: unspecified stage Qualified Code(s): N17.9 - Acute kidney failure, unspecified; N18.9 - Chronic kidney disease, unspecified Category: Medical Code(s): N17.9 - Acute kidney failure, unspecified; N18.9 - Chronic kidney disease, unspecified (4) COPD (chronic obstructive pulmonary disease) Current visit: Yes Status: Acute Qualifiers: COPD type: unspecified COPD Qualified Code(s): J44.9 - Chronic obstructive pulmonary disease, unspecified Category: Medical Code(s): J44.9 - Chronic obstructive pulmonary disease, unspecified (5) E. coli UTI (urinary tract infection) Current visit: Yes Status: Acute Category: Medical Code(s): N39.0 - Urinary tract infection, site not specified; B96.20 - Unspecified Escherichia coli [E. coli] as the cause of diseases classified elsewhere (6) E coli bacteremia Current visit: Yes Status: Acute Category: Medical Code(s): R78.81 - Bacteremia; B96.20 - Unspecified Escherichia coli [E. coli] as the cause of diseases classified elsewhere - Assessment and plan all Dx Assessment and Plan for all problems:: Continue current regimen. Aggressive bronchodilation. We will take a look at her chest x-ray.
--- NOTE | 2020-04-13 13:23 | CA_ITS ---
APPROVED REPORT EXAM: Comprehensive 2D, Doppler, and color-flow Echocardiogram Java Consultant: Clair Stuart CRT Ht: 4 ft 11 in Wt: 105lbs BSA: 1.40 BP: 112/71 mmHg Indications: EDEMA,SEPSIS,COPD,SOA,CAD,SMOKER,HTN 2D Dimensions LVOT 1.47 cm (M/F) 1.5-2.5 M-Mode Dimensions RVDd 2.57 cm (0.9-2.6) LVDd 3.69 cm (3.5-5.7) LVDs 2.63 cm (3.5-5.7) IVSd 0.56 cm (0.6-1.1) PWd 0.50 cm (0.6-1.1) EF (Teich) 56.20% FS 28.70% EDV (Teich) 57.80 mL ESV (Teich) 25.30 mL LV Diastology E/A Ratio 0.68 Mitral Valve MV A Velocity 97.00 (40-130 cm/s) Left Ventricle Left atrium is mildly enlarged, left ventricle is normal size, mild concentric left ventricular hypertrophy, visually estimated ejection fraction 55% with no regional wall motion abnormality, diastolic parameters are within normal range. Right Ventricle Right atrium and right ventricle are moderately enlarged, contractility of the right ventricle is mildly reduced. Aortic Valve Aortic valve is minimally thickened and fibrosed, there is no aortic stenosis or aortic insufficiency. Mitral Valve Mitral valve is grossly normal, there is mild mitral regurgitation. Tricuspid Valve Tricuspid valve is grossly normal, there is mild tricuspid regurgitation, calculated right ventricular systolic pressure is 59 mmHg. Inferior vena cava is dilated without significant inspiratory collapse. Pulmonic Valve Pulmonic valve is poorly visualized. Great Vessels Aortic root is normal size. Pericardium No significant pericardial effusion noted. Conclusion 1. Normal left ventricular size, preserved ventricular systolic function, visually estimated ejection fraction 55% with no regional wall motion abnormality, diastolic parameters are within normal range. 2. Moderately enlarged right ventricle with mild reduced contractility. 3. Mild mitral and tricuspid regurgitation, calculated right ventricular systolic pressure 59 mmHg. Inferior vena cava is dilated without significant inspiratory collapse . 4. No significant pericardial effusion noted. Electronically signed by : Cayden Grace, 04/13/2020 18:34:28
--- NOTE | 2020-04-13 18:18 | PC.NURSE ---
Pt is alert and oriented and able to make her needs known. Pt will desat when ambulating on RA. Havs responded to x 1 IV lasix dose per mar with approx 1900 ml u/o. Have noted crackles this afternoon and Dr. Ferrara is here rounding and made him aware of this. Pt's labia is edematous and rosalia knees are edematous and non pitting. Pt has had a shower this evening and is independent. CB in reach. Did request to SL fluids and Dr. ferrara stated this was ok. Will cont to mx this shift. Has had a mod BM this shift as well.
--- NOTE | 2020-04-13 18:24 | XR_ITS ---
PROCEDURE: XR CHEST 2V CLINICAL HISTORY: dyspnea COMPARISON: CR CXR1VP XR chest portable from 10/24/2017 CR CXR1VP XR chest portable from 06/28/2018 CR XR CHEST 2V from 06/05/[address] CHEST WO CON from 04/09/2020 FINDINGS: The cardiomediastinal silhouette and pulmonary vascularity are within normal limits. There is COPD with bullous changes in the right upper lobe. There are old right-sided rib fractures. Atelectatic changes are present in the right lower lobe with possible small right effusion No acute bony abnormalities. IMPRESSION: COPD with bullous changes in the right upper lobe with new right lower lobe atelectasis and possible trace right effusion Dictated by: Tong Eugene MD 04/14/2020 06:49 Tong Eugene MD in [place] 04/14/2020 06:49
--- NOTE | 2020-04-13 19:20 | PC.NURSE ---
report given to beatriz
--- NOTE | 2020-04-13 19:37 | PC.NURSE ---
Pt went down for cxr when vanc infusing and cefapime due at 1830, vanc still infusing at this time as IV went bad during infusion and had to be changed. GEORGES lenz RN aware and going to hang IV cefapime when vanc infused.
[2020-04-14 02:00] VITALS: PULSE 100; PULSE 95
[2020-04-14 03:14] VITALS: BP 129/76; PULSE 108; RESP 18; TEMP 37.6; O2SAT 96
[2020-04-14 05:00] VITALS: BMI 20.2
--- NOTE | 2020-04-14 06:20 | PC.NURSE ---
Pt rested well over night. No complaints reported to staff. Edema to BLE has improved this AM. Pt is voiding w/o issues independently. Pt remains on 2LNC and does continue to desat quickly w/ exertion or when on RA. Humidification added to O2 d/t pt c/o dryness in nose. Will continue to monitor. Family at bedside t/o night.
[2020-04-14 06:23] VITALS: PULSE 103; PULSE 94; O2SAT 95
[2020-04-14 08:00] VITALS: BP 121/70; PULSE 110; RESP 20; TEMP 36.9; O2SAT 92; O2SAT 97
[2020-04-14 08:03] LABS: Basophils % 0.2 % (0.1-2.0); Eosinophils # 0.1 K/mm3 (0.0-0.4); Hematocrit 30.2 % (37.0-47.0); Hemoglobin 9.7 g/dL (12.2-16.2); Lymphocytes # 1.4 K/mm3 (0.7-4.5); Lymphocytes % 11.7 % (10-50); Mean Corpuscular HGB Conc 32.1 g/dL (31.8-35.4); Mean Corpuscular Hemoglobin 28.9 pg (27.0-31.2); Mean Corpuscular Volume 90.1 fl (81-99); Mean Platelet Volume 8.8 fl (7.4-10.4); Monocytes # 0.6 K/mm3 (0.1-1.0); Monocytes % 5.4 % (1.7-9.3); Neutrophils # 9.5 K/mm3 (1.8-7.8); Neutrophils % 81.8 % (37.0-80.0); Platelet Count 263 K/mm3 (142-424); Red Blood Count 3.35 M/mm3 (4.20-5.40); Red Cell Distribution Width 13.8 % (11.5-17.5); White Blood Count 11.6 K/mm3 (4.8-10.8)
[2020-04-14 08:11] LABS: Chloride 95 mmol/L (98-107)
[2020-04-14 08:12] LABS: Potassium 3.2 mmoL/L (3.5-5.1); Sodium 134 mmol/L (136-145)
[2020-04-14 08:14] LABS: Blood Urea Nitrogen 11 mg/dl (7-17); Creatinine Clearance Estimated 62 mL/min (50-200); Estimated Glomerular Filt Rate 76 ml/min (>60); GFR (African American) 92 ML/MIN (>60)
[2020-04-14 08:15] LABS: Calcium 8.2 mg/dl (8.4-10.2); Carbon Dioxide 31 mmol/L (22.0-30.0); Glucose 104 mg/dl (74-100)
[2020-04-14 08:29] LABS: Anion Gap 11.2 mEq/L (5-15)
--- NOTE | 2020-04-14 09:58 | HMH.DCSUM ---
General - General Admission date:: 04/09/20 Discharge date: 04/14/20 HPI HPI: 49-year-old female presented to the emergency department with abdominal discomfort. Patient has had this for the last 3 days. Is located in the right flank and radiating down to her right groin. She has had some burning with urination and decreased urinary frequency and urgency. denies burninf. History of a hysterectomy. No headache, no change in vision, no focal weakness. pt admitted for uti plim pos blood cx. Hospital Course Hospital Course: 49-year-old female presented to the emergency department with abdominal discomfort for 3 days. Is located in the right flank and radiating down to her right groin. She states that she has not had this before. She admits nausea, vomiting, or diarrhea. She does admit she has had burning with urination, but denies pain with increased frequency and urgency she denied any sexual activity, denies any sexual activity. History of a hysterectomy. Denies any chest pain, shortness of breath, headache, or change in vision. She was given vancomycin and cefepime IV in the emergency department and continued on through her stay on the floor. In the ED her white count was 23.3, BUN was 27 with a creatinine of 1.5 GFR was 37. After fluids and IV antibiotics white blood cells count 11.6, BUN 11, creatinine 0.8, GFR 76. She was complaining of some lower extremity edema during last night and was given 20 of Lasix IVP, she reports a large amount of urine during the night and reports today she is feeling a lot better with less edema, and denies shortness of breath. During her stay she has been on 2 L per nasal cannula with sats from 93-97 currently room air sats are 94 and she will be discharged home on room air. She does report she has home O2 and uses it as needed Blood cultures x2 and urine culture revealed E. coli and she will be discharged on Levaquin Imaging during her stay is as follows: Abd/Pelvis CT 04/10/20 FINDINGS: The liver, spleen, adrenal glands, and pancreas have an unremarkable unenhanced appearance. Multiple unopacified bowel loops in the abdomen or pelvis which could obscure or mimic pathology. If symptoms persist, consider repeat exam with IV and oral contrast.. The kidneys have an edematous appearance. No renal or ureteral calculi. There is mild stranding of the perinephric renal fat bilaterally. Pyelonephritis is considered. No evidence of appendicitis or diverticulitis. No acute bony anomaly. IMPRESSION: Findings suspicious for bilateral pyelonephritis. Multiple unopacified bowel loops in the abdomen or pelvis which could obscure or mimic pathology. If symptoms persist, consider repeat exam with IV and oral contrast. Dictated by: Jabier Chest CT 04/10/20: FINDINGS: HEART AND MEDIASTINAL STRUCTURES: No mediastinal or hilar mass or adenopathy. Coronary artery calcifications are present. LUNGS AND PLEURAL SPACES: There are centrilobular emphysematous changes with bullous changes in the right upper lobe. There is mild bronchial thickening diffuse in nature. No lobar consolidation or collapse is evident. BONY STRUCTURES: There are degenerative changes in the midthoracic spine. There is an old left 9th rib fracture. UPPER ABDOMEN: Unremarkable. ADDITIONAL FINDINGS: No other significant abnormalities. IMPRESSION: Severe emphysema with bullous changes in the right apex Dictated by: Jabier, ECHO 04/13/20: FINDINGS: The liver, spleen, adrenal glands, and pancreas have an unremarkable unenhanced appearance. Multiple unopacified bowel loops in the abdomen or pelvis which could obscure or mimic pathology. If symptoms persist, consider repeat exam with IV and oral contrast.. The kidneys have an edematous appearance. No renal or ureteral calculi. There is mild stranding of the perinephric renal fat bilaterally. Pyelonephritis is considered. No evidence of appendicitis or divertic
[2020-04-14 10:51] VITALS: PULSE 87
--- NOTE | 2020-04-14 11:12 | HMH.PHAINT ---
DISCHARGE COUNSELING COMPLETED. PATIENT WOULD ALSO LIKE A REFILL ON HER ALBUTEROL INHALER. I CALLED AND SPOKE WITH LAMAR AT DR DUMONT'S OFFICE ABOUT THIS.
== END 2020-04-14 11:15 | disposition home or self-care (01) | DRG 690 ==
LOC: ER 18:09 → 2ND 04-10 05:08
PROVIDERS: Nurse Practitioner Family; Admitting Provider Family Medicine; Emergency Provider Emergency Medicine; PCP Family Medicine; Visit Provider Emergency Medicine
DX: N10 Acute pyelonephritis (principal); R78.81 Bacteremia; N39.0 Urinary tract infection, site not specified; B96.20 Unspecified Escherichia coli [E. coli] as the cause of diseases classified elsewhere; J44.9 Chronic obstructive pulmonary disease, unspecified; Z72.0 Tobacco use; I25.10 Atherosclerotic heart disease of native coronary artery without angina pectoris; I12.9 Hypertensive chronic kidney disease with stage 1 through stage 4 chronic kidney disease, or unspecified chronic kidney disease; N17.9 Acute kidney failure, unspecified; N18.9 Chronic kidney disease, unspecified
CPT/HCPCS: 36415; 71046; 71250; 74176; 80048; 80053; 80202; 81001; 83605; 85007; 85025; 86328; 87040; 87077; 87086; 87088; 87186; 93306; 94640; 94761; 96365; 96367; 96375; 99285; J0692; J2405; J3370

== ENCOUNTER 2020-08-19 16:25 | Emergency (ER) | payer OTHER, SELFPAY ==
[2020-08-19 16:33] VITALS: BP 131/76; PULSE 89; RESP 18; TEMP 36.9; O2SAT 99; BMI 17.9
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
[2020-08-19 17:35] VITALS: BP 131/76; PULSE 89; RESP 18; TEMP 36.9; O2SAT 99
== END 2020-08-19 17:36 | disposition home or self-care (01) ==
PROVIDERS: Emergency Provider Nurse Practitioner; PCP Emergency Medicine
DX: S61.411A Laceration without foreign body of right hand, initial encounter (principal); W25.XXXA Contact with sharp glass, initial encounter; Y92.019 Unspecified place in single-family (private) house as the place of occurrence of the external cause; Z23 Encounter for immunization; J44.9 Chronic obstructive pulmonary disease, unspecified; I10 Essential (primary) hypertension; I25.10 Atherosclerotic heart disease of native coronary artery without angina pectoris; Z90.710 Acquired absence of both cervix and uterus; Z79.899 Other long term (current) drug therapy
CPT/HCPCS: 12001; 90471; 90715; 99201

== ENCOUNTER 2020-09-02 10:43 | Emergency (ER) | payer OTHER, SELFPAY ==
[2020-09-02 10:44] VITALS: BP 102/67; PULSE 75; RESP 19; TEMP 37.1; O2SAT 97; BMI 15.3
[2020-09-02 11:01] VITALS: BP 102/67; PULSE 75; RESP 19; TEMP 37.1; O2SAT 97; BMI 15.3
[2020-09-02 11:03] VITALS: BP 102/67; PULSE 75; RESP 19; TEMP 37.1; O2SAT 97
== END 2020-09-02 11:04 | disposition home or self-care (01) ==
LOC: UTC 10:46
PROVIDERS: Emergency Provider Nurse Practitioner; PCP Emergency Medicine
DX: S61.411D Laceration without foreign body of right hand, subsequent encounter (principal)

== ENCOUNTER → 2020-12-31 16:47 | Outpatient (CLI) | payer OTHER, SELFPAY ==
[2020-12-31 17:02] LABS: Basophils # 0.1 K/mm3 (0-0.2); Basophils % 0.5 % (0.1-2.0); Eosinophils # 0.1 K/mm3 (0.0-0.4); Eosinophils % 0.9 % (0.1-12.0); Hematocrit 40.1 % (37.0-47.0); Hemoglobin 12.7 g/dL (12.2-16.2); Lymphocytes # 2.4 K/mm3 (0.7-4.5); Lymphocytes % 23.5 % (10-50); Mean Corpuscular HGB Conc 31.7 g/dL (31.8-35.4); Mean Corpuscular Hemoglobin 27.6 pg (27.0-31.2); Mean Corpuscular Volume 87.1 fl (81-99); Mean Platelet Volume 8.1 fl (7.4-10.4); Monocytes # 0.5 K/mm3 (0.1-1.0); Monocytes % 5.2 % (1.7-9.3); Neutrophils # 7.2 K/mm3 (1.8-7.8); Neutrophils % 69.9 % (37.0-80.0); Platelet Count 332 K/mm3 (142-424); Red Cell Distribution Width 13.2 % (11.5-17.5); White Blood Count 10.3 K/mm3 (4.8-10.8)
[2020-12-31 17:07] LABS: Alanine Aminotransferase 14 U/L (12-78); Albumin Level 4.6 g/dl (3.5-5.0); Albumin/Globulin Ratio 1.9 (1.1-1.8); Alkaline Phosphatase 74 U/L (38-126); Anion Gap 12.4 mEq/L (5-15); Aspartate Amino Transferase 22 U/L (14-36); Bilirubin,Total 0.4 mg/dl (0.2-1.3); Blood Urea Nitrogen 9 mg/dl (7-17); Calcium 9.6 mg/dl (8.4-10.2); Carbon Dioxide 27 mmol/L (22.0-30.0); Chloride 101 mmol/L (98-107); Chol/HDL Ratio 2.6 (1-3.5); Cholesterol 184 mg/dl (140-200); Estimated Glomerular Filt Rate 88 ml/min (>60); GFR (African American) 107 ML/MIN (>60); Globulin 2.4 g/dL (1.3-3.2); Glucose 123 mg/dl (74-100); HDL Cholesterol 72 mg/dl (40-60); Potassium 4.4 mmoL/L (3.5-5.1); Sodium 136 mmol/L (136-145); Triglycerides 122 mg/dl (30-150); VLDL Cholesterol 24 mg/dL (0-40)
[2020-12-31 17:19] LABS: Direct LDL Cholesterol 73.99 mg/dL (100-129)
[2020-12-31 17:27] LABS: 25-OH Vitamin D, Total 21.9 ng/mL (30-100)
[2020-12-31 17:28] LABS: T4 (Thyroxine) 5.7 ug/dl (5.53-11.0)
[2020-12-31 17:41] LABS: Thyroid Stimulating Hormone 1.98 uIU/mL (0.465-4.68)
[2021-01-01 15:23] LABS: Hemoglobin A1C 5.6 % (4.0-6.0)
== END ==
PROVIDERS: Visit Provider Nurse Practitioner Family
DX: I10 Essential (primary) hypertension (principal); E78.5 Hyperlipidemia, unspecified; D64.9 Anemia, unspecified; N17.9 Acute kidney failure, unspecified; R56.9 Unspecified convulsions; E55.9 Vitamin D deficiency, unspecified
CPT/HCPCS: 80053; 80061; 82306; 83036; 84436; 84443; 85025

== ENCOUNTER → 2021-01-06 09:36 | Outpatient (CLI) | payer OTHER, SELFPAY ==
--- NOTE | 2021-01-06 09:36 | MM_ITS ---
PROCEDURE INFORMATION: Exam: MG Screening 3D Mammography Exam date and time: 01/06/2021 9:36 AM Age: 50 years old Clinical indication: Breast CA screening TECHNIQUE: Imaging protocol: Screening tomosynthesis and 2D mammography including computer-aided detection (CAD) when performed. COMPARISON: No relevant prior studies available. FINDINGS: MAMMOGRAPHY: Breast composition: The breast tissue is extremely dense, limiting the sensitivity of mammography. Mass: None. Architectural distortion: None. Calcifications: No suspicious calcifications. Asymmetric density: None. Skin thickening: None. Axillary adenopathy: None. IMPRESSION: No mammographic evidence of malignancy. Annual screening is recommended unless otherwise clinically indicated. ASSESSMENT: BI-RADS Category 1: Negative
== END ==
PROVIDERS: PCP Emergency Medicine; Visit Provider Nurse Practitioner Family
DX: Z12.31 Encounter for screening mammogram for malignant neoplasm of breast (principal)
CPT/HCPCS: 77063; 77067

== ENCOUNTER 2021-04-07 16:08 | Emergency (ER) | payer OTHER, SELFPAY ==
[2021-04-07 16:09] VITALS: BP 108/65; PULSE 88; RESP 14; TEMP 36.8; O2SAT 97; BMI 16.6
--- NOTE | 2021-04-07 16:24 | XR_ITS ---
PROCEDURE: XR CHEST PORTABLE CLINICAL HISTORY: soa COMPARISON: CR CXR1VP XR chest portable from 06/28/2018 CR XR CHEST 2V from 06/05/[address] CHEST WO CON from 04/09/2020 CR XR CHEST 2V from 04/13/2020 FINDINGS: The cardiomediastinal silhouette and pulmonary vascularity are within normal limits. COPD with severe bullous change on the right similar to the previous exam. Bilateral nipple shadows are present. There are old bilateral rib fractures. No lobar consolidation or collapse. No acute bony abnormalities. IMPRESSION: No acute finding. COPD change with severe bullous changes on the right Dictated by: Tong Eugene MD 04/07/2021 16:47 Tong Eugene MD in [place] 04/07/2021 16:47
[2021-04-07 16:30] VITALS: BP 100/62; PULSE 87; O2SAT 94
--- NOTE | 2021-04-07 16:41 | ECG_ITS ---
APPROVED REPORT Exam: Resting ECG HR:83 bpm ECG Measurements Heart Rate 83 AXES GA 196 P 85 QRSd 62 QRS 83 QT 360 T 71 QTc 423 Conclusion Normal sinus rhythm Normal ECG Electronically signed by : Beau Waite MD 04/09/2021 17:17:22
--- NOTE | 2021-04-07 16:47 | HMH.EDGENADL ---
ED Disposition Clinical Impression: Diarrhea, Hyponatremia Disposition: Home, Self-Care Condition on Discharge: Good Instructions: DI for Diarrhea and Traveler's Diarrhea -- Adult, DI for Diarrhea and Traveler's Diarrhea -- Child, DI for Nausea -- Adult, DI for Nausea -- Child Additional Instructions: Return to the emergency department within the next few hours should you have worsening inability to tolerate p.o. vomiting or any other concerns. Otherwise follow-up with your primary care physician within the next week for laboratory recheck Prescriptions: Loperamide HCl [Imodium 2 mg capsule] 2 mg PO Q2H PRN 2 Days #24 cap PRN Reason: Diarrhea Transmission Status: Pending to [facility] Ondansetron [Zofran 4mg ODT] 4 mg PO TIDP PRN #15 tab PRN Reason: Nausea Transmission Status: Pending to [facility] Referrals: Gonzalez Goldman MD [Primary Care Provider] - - Critical Care Critical Care Time: No Attestation: On 04/07/21, the high probability of a clinically significant, sudden or life threatening deterioration of the following system(s) required my full and direct attention, intervention and personal management. The time I documented below is in addition to time spent performing reported procedures but includes the following listed in this critical care notation. Medical Decision Making - Medical Records Medical records reviewed: Yes: I reviewed the patient's medical records. - Payam Inquiry Pt receiving controlled substance: No Vital Signs: 04/07/21 16:09 04/07/21 16:30 Temperature 98.3 F Temperature Source Oral Pulse Rate 87 Pulse Rate [Right] 88 Respiratory Rate 14 Blood Pressure 100/62 L Blood Pressure [Right Arm] 108/65 L Blood Pressure Mean [Right Arm] 79 02 Sat by Pulse Oximetry 97 94 L Oxygen Delivery Method Room Air Room Air - Lab Data Lab Results 04/07/21 16:55: WBC 10.4, RBC 4.63, Hgb 13.0, Hct 38.3, MCV 82.8, MCH 28.1, MCHC 34.0, RDW 13.5, Plt Count 207, MPV 8.3, Neut % (Auto) 76.3, Lymph % (Auto) 15.7, Barren % (Auto) 6.2, Eos % (Auto) 1.4, Baso % (Auto) 0.4, Neut # (Auto) 7.9 H, Lymph # (Auto) 1.6, Barren # (Auto) 0.6, Eos # (Auto) 0.1, Baso # (Auto) 0.0 04/07/21 16:55: Sodium 130 L, Potassium 4.5, Chloride 90 L, Carbon Dioxide 30, Anion Gap 14.5, BUN 21 H, Creatinine 0.90, Estimated Creat Clear 51, Estimated GFR 66, Est GFR ( Amer) 80, Glucose 96, Calcium 8.7, Magnesium 1.8, Total Bilirubin 0.4, AST 29, ALT 15, Alkaline Phosphatase 67, Total Protein 7.2, Albumin 4.4, Globulin 2.8, Albumin/Globulin Ratio 1.6 Result diagrams: 04/07/21 16:55 04/07/21 16:55 Orders (Tests/Meds): ED MEDICATIONS Discontinued Medications Generic Name Dose Route Start Last Admin Trade Name Freq PRN Reason Stop Dose Admin Sodium Chloride 1,000 mls @ 999 mls/hr 04/07/21 16:30 04/07/21 16:58 Sod Chlor 0.9% 1000ml Bag IV 04/07/21 17:30 999 mls/hr .Q1H1M SUZY Administration Ondansetron HCl 4 mg 04/07/21 16:24 04/07/21 16:58 Ondansetron 4mg/2ml Vial IV 04/07/21 16:25 4 mg ONCE ONE Administration Medical Decision Narrative: 50-year-old female presents with nausea vomiting diarrhea. She is in no acute distress nontoxic-appearing comfortable in the room. Afebrile in the emergency department. Oxygen saturation 94% however she does use as needed oxygen at home. Does not appear to be significantly dehydrated. Chest x-ray obtained, giving IV fluids and antiemetic and laboratory evaluation obtained as well. Laboratory evaluation reveals hyponatremia and mild dehydration, given IV fluid bolus. She was feeling much better. She is not actively vomiting at this time. Plan to give strict return precautions and follow-up recommendations for outpatient management as well as symptomatic treatment General Adult HPI - General Chief complaint: Nausea/Vomiting/Diarrhea Stated complaint: cough,V&D Time Seen by Provider: 04/07/21 16:10 Mode of Arriv
[2021-04-07 17:06] LABS: Basophils % 0.4 % (0.1-2.0); Eosinophils # 0.1 K/mm3 (0.0-0.4); Eosinophils % 1.4 % (0.1-12.0); Hematocrit 38.3 % (37.0-47.0); Lymphocytes # 1.6 K/mm3 (0.7-4.5); Lymphocytes % 15.7 % (10-50); Mean Corpuscular Hemoglobin 28.1 pg (27.0-31.2); Mean Corpuscular Volume 82.8 fl (81-99); Mean Platelet Volume 8.3 fl (7.4-10.4); Monocytes # 0.6 K/mm3 (0.1-1.0); Monocytes % 6.2 % (1.7-9.3); Neutrophils # 7.9 K/mm3 (1.8-7.8); Neutrophils % 76.3 % (37.0-80.0); Platelet Count 207 K/mm3 (142-424); Red Blood Count 4.63 M/mm3 (4.20-5.40); Red Cell Distribution Width 13.5 % (11.5-17.5); White Blood Count 10.4 K/mm3 (4.8-10.8)
[2021-04-07 17:09] LABS: Chloride 90 mmol/L (98-107)
[2021-04-07 17:11] LABS: Alanine Aminotransferase 15 U/L (12-78); Albumin Level 4.4 g/dl (3.5-5.0); Albumin/Globulin Ratio 1.6 (1.1-1.8); Alkaline Phosphatase 67 U/L (38-126); Anion Gap 14.5 mEq/L (5-15); Aspartate Amino Transferase 29 U/L (14-36); Bilirubin,Total 0.4 mg/dl (0.2-1.3); Blood Urea Nitrogen 21 mg/dl (7-17); Calcium 8.7 mg/dl (8.4-10.2); Carbon Dioxide 30 mmol/L (22.0-30.0); Creatinine Clearance Estimated 51 mL/min (50-200); Estimated Glomerular Filt Rate 66 ml/min (>60); GFR (African American) 80 ML/MIN (>60); Globulin 2.8 g/dL (1.3-3.2); Glucose 96 mg/dl (74-100); Magnesium 1.8 mg/dl (1.6-2.3); Potassium 4.5 mmoL/L (3.5-5.1); Sodium 130 mmol/L (136-145); Total Protein,Serum 7.2 g/dl (6.3-8.2)
[2021-04-07 18:00] VITALS: BP 117/79; PULSE 76; RESP 16; TEMP 36.8; O2SAT 98
== END 2021-04-07 18:08 | disposition home or self-care (01) ==
PROVIDERS: Emergency Provider Emergency Medicine; PCP Emergency Medicine
DX: R11.2 Nausea with vomiting, unspecified (principal); R19.7 Diarrhea, unspecified; R42 Dizziness and giddiness; F17.210 Nicotine dependence, cigarettes, uncomplicated; E87.1 Hypo-osmolality and hyponatremia
CPT/HCPCS: 71045; 80053; 83735; 85025; 93005; 96365; 99283; J2405

== ENCOUNTER 2022-06-03 16:32 | Emergency (ER) | payer OTHER, SELFPAY ==
[2022-06-03 16:41] VITALS: BP 149/82; PULSE 94; RESP 18; TEMP 36.8; O2SAT 95; BMI 16.0
--- NOTE | 2022-06-03 16:48 | XR_ITS ---
PROCEDURE INFORMATION: Exam: XR Thoracic Spine Exam date and time: 06/03/2022 4:59 PM Age: 51 years old Clinical indication: Pain in thoracic spine; Additional info: Pain after lifting TECHNIQUE: Imaging protocol: Radiologic exam of the thoracic spine. Views: 2 views. COMPARISON: CR XR CHEST PORTABLE 04/07/2021 4:32 PM FINDINGS: Bones/joints: Normal. No acute fracture. Normal alignment. Soft tissues: Unremarkable. Lungs: Hyperexpanded lungs without infiltrate. Rim calcified bulla in the right lung apex. Heart/Mediastinum: Prominence of the central pulmonary arteries, consider pulmonary hypertension. IMPRESSION: 1. Prominence of the central pulmonary arteries, consider pulmonary hypertension. 2. Rim calcified bulla in the right lung apex.
--- NOTE | 2022-06-03 16:48 | XR_ITS ---
PROCEDURE INFORMATION: Exam: XR Lumbosacral Spine Exam date and time: 06/03/2022 5:00 PM Age: 51 years old Clinical indication: Low back pain; Additional info: Pain after lifting TECHNIQUE: Imaging protocol: Radiologic exam of the lumbosacral spine. Views: 2 or 3 views. COMPARISON: CT ABDOMEN PELVIS WO CON 04/09/2020 5:06 PM FINDINGS: Bones/joints: Normal. No acute fracture. Normal alignment. Soft tissues: Unremarkable. Vasculature: Vascular calcifications. IMPRESSION: No acute findings.
--- NOTE | 2022-06-03 17:38 | HMH.EDGENADL ---
Discharge Plan Disposition Patient Disposition: Home, Self-Care Condition: Good Prescriptions Prescriptions: New methocarbamol 500 mg tablet 500 mg PO Q8H PRN (Reason: Back Pain) Qty: 20 0RF ibuprofen 600 mg tablet 600 mg PO Q8H PRN (Reason: moderate pain ) Qty: 20 0RF No Action ropinirole 1 mg tablet 1 mg PO HS Qty: 30 0RF levetiracetam 750 mg tablet 750 mg PO BID methylprednisolone [Medrol (Lionel)] 4 mg tablets,dose pack See Rx Instructions PO PER PKG DIR Qty: 21 0RF Rx Instructions: PO PER PKG DIR minocycline 100 mg capsule 100 mg PO BID Qty: 14 0RF hydrocortisone 2.5 % cream 1 applic TOPICAL BID PRN (Reason: itching) Qty: 30 1RF ergocalciferol (vitamin D2) [Vitamin D2] 1,250 mcg (50,000 unit) capsule See Rx Instructions .ROUTE .COMPLEX Qty: 14 3RF Dose Instruction: TAKE 1 CAPSULE BY MOUTH ONCE A WEEK Rx Instructions: TAKE 1 CAPSULE BY MOUTH ONCE A WEEK albuterol sulfate [ProAir HFA] 90 mcg/actuation HFA aerosol inhaler See Rx Instructions .ROUTE .COMPLEX Qty: 8.5 2RF Dose Instruction: 1 PUFF INHALATION EVERY SIX HOURS NEEDED FOR COPD Rx Instructions: 1 PUFF INHALATION EVERY SIX HOURS NEEDED FOR COPD lisinopril 20 mg tablet See Rx Instructions .ROUTE .COMPLEX Qty: 60 2RF Dose Instruction: TAKE 1 TABLET BY MOUTH TWICE DAILY FOR BLOOD PRESSURE Rx Instructions: TAKE 1 TABLET BY MOUTH TWICE DAILY FOR BLOOD PRESSURE Referrals Follow up/Referrals: Gonzalez Goldman MD [Primary Care Provider] - See instructions Activity Restrictions/Add. Instructions Additional Instructions/Restrictions: Ibuprofen and Robaxin as prescribed for pain. Additional instructions for BACK PAIN: See your physician as soon as possible for further evaluation. Return immediately if back pain becomes intolerable, or if fever, numbness or weakness of your legs, loss of control of your bowels or bladder. Clinical Impressions Clinical Impression: Back pain Instructions Patient Instructions: DI for Low Back Pain Discharge ED Provider: Amarjit Mcnair General Adult HPI General Chief complaint: Back Pain/Injury Stated complaint: BACK PAINS Time Seen by Provider: 06/03/22 17:38 Mode of Arrival: Ambulatory Source of Information: Patient Limitations: No Limitations Description of Symptoms (Recalled from ER Triage Doc. by RN): pt to ed c/o back pain. pt states she was lifting a table x2 weeks ago and reports she has had pain down her spine since. pt denies any urinary symptoms. History of Present Illness HPI narrative: States that she was lifting her table 2 weeks ago because it was falling through the floor and she injured her back. Since then she has had pain in her entire spine from the base of her neck down to her tailbone. Pain increases with movement. She says sometimes it will shoot into her thighs causing her legs to buckle. Otherwise no numbness or weakness. No loss of bowel or bladder control. No treatment with [id number] medications. She has not seen her PCP. Related Data Home Medications Medication Instructions Recorded Confirmed levetiracetam 750 mg tablet 750 mg PO BID seizures 06/19/18 10/11/21 Previous Rx's Medication Instructions Recorded ropinirole 1 mg tablet 1 mg PO HS Restless leg #30 tabs 12/31/20 methylprednisolone 4 mg tablets in See Rx Instructions PO PER PKG DIR 11/15/21 a dose pack (Medrol (Lionel)) #21 tabs hydrocortisone 2.5 % topical cream 1 applic topical BID PRN itching 11/16/21 #30 grams minocycline 100 mg capsule 100 mg PO BID #14 caps 11/16/21 ergocalciferol (vitamin D2) 1,250 See Rx Instructions .Route 04/26/22 mcg (50,000 unit) capsule (Vitamin .COMPLEX #14 caps D2) albuterol sulfate 90 mcg/actuation See Rx Instructions .Route 05/31/22 aerosol inhaler (ProAir HFA) .COMPLEX #8.5 grams lisinopril 20 mg tablet See Rx Instructions .Route 05/31/22 .COMPLEX #60 tabs ibuprofen
[2022-06-03 18:20] VITALS: BP 160/80; PULSE 72; RESP 16; TEMP 37.1; O2SAT 100
== END 2022-06-03 18:25 | disposition home or self-care (01) ==
PROVIDERS: Emergency Provider Emergency Medicine; PCP Emergency Medicine
DX: M54.9 Dorsalgia, unspecified (principal); Z79.899 Other long term (current) drug therapy; R56.9 Unspecified convulsions; Z72.0 Tobacco use; J44.9 Chronic obstructive pulmonary disease, unspecified
CPT/HCPCS: 72070; 72100; 96372; 99283

== ENCOUNTER → 2022-09-26 10:35 | Outpatient (CLI) | payer OTHER, SELFPAY ==
[2022-09-26 13:33] LABS: Basophils # 0.1 K/mm3 (0-0.2); Basophils % 0.6 % (0.1-2.0); Eosinophils % 0.3 % (0.1-12.0); Hematocrit 40.4 % (37.0-47.0); Hemoglobin 12.5 g/dL (12.2-16.2); Lymphocytes # 2.1 K/mm3 (0.7-4.5); Lymphocytes % 19.4 % (10-50); Mean Corpuscular HGB Conc 30.9 g/dL (31.8-35.4); Mean Corpuscular Hemoglobin 26.9 pg (27.0-31.2); Mean Corpuscular Volume 87.2 fl (81-99); Mean Platelet Volume 8.7 fl (7.4-10.4); Monocytes # 0.4 K/mm3 (0.1-1.0); Monocytes % 3.5 % (1.7-9.3); Neutrophils # 8.3 K/mm3 (1.8-7.8); Neutrophils % 76.1 % (37.0-80.0); Platelet Count 368 K/mm3 (142-424); Red Blood Count 4.64 M/mm3 (4.20-5.40); Red Cell Distribution Width 13.2 % (11.5-17.5); White Blood Count 10.9 K/mm3 (4.8-10.8)
[2022-09-26 14:21] LABS: Alanine Aminotransferase 16 U/L (12-78); Albumin Level 4.9 g/dl (3.5-5.0); Albumin/Globulin Ratio 1.9 (1.1-1.8); Alkaline Phosphatase 86 U/L (38-126); Anion Gap 12.8 mEq/L (5-15); Aspartate Amino Transferase 26 U/L (14-36); Bilirubin,Total 0.3 mg/dl (0.2-1.3); Blood Urea Nitrogen 18 mg/dl (7-17); Calcium 9.1 mg/dl (8.4-10.2); Carbon Dioxide 24 mmol/L (22.0-30.0); Chloride 102 mmol/L (98-107); Cholesterol 183 mg/dl (140-200); Estimated Glomerular Filt Rate 75 ml/min (>60); GFR (African American) 91 ML/MIN (>60); Globulin 2.6 g/dL (1.3-3.2); Glucose 74 mg/dl (74-100); HDL Cholesterol 90 mg/dl (40-60); Potassium 4.8 mmoL/L (3.5-5.1); Sodium 134 mmol/L (136-145); Total Protein,Serum 7.5 g/dl (6.3-8.2); Triglycerides 86 mg/dl (30-150); VLDL Cholesterol 17 mg/dL (0-40)
[2022-09-26 14:31] LABS: Direct LDL Cholesterol 78.17 mg/dL (100-129)
[2022-09-26 14:36] LABS: Free T4 (Free Thyroxine) 1.06 ng/dl (0.78-2.19)
[2022-09-26 14:51] LABS: Thyroid Stimulating Hormone 0.93 uIU/mL (0.465-4.68)
== END ==
PROVIDERS: PCP Emergency Medicine; Visit Provider Emergency Medicine
DX: R73.03 Prediabetes (principal); E55.9 Vitamin D deficiency, unspecified; Z79.899 Other long term (current) drug therapy
CPT/HCPCS: 80053; 80061; 82306; 84439; 84443; 85025

== ENCOUNTER → 2022-10-21 14:20 | Outpatient (CLI) | payer OTHER, SELFPAY ==
--- NOTE | 2022-10-21 14:20 | MM_ITS ---
PROCEDURE INFORMATION: Exam: MG Bilateral Screening 3D Mammography Exam date and time: 10/21/2022 2:11 PM Age: 51 years old Clinical indication: Screening. No family history of breast cancer. TECHNIQUE: Imaging protocol: Bilateral Screening tomosynthesis and 2D mammography including computer-aided detection (CAD) when performed. COMPARISON: MG MM DIG SCREENING MAMM BI W/CAD 01/06/2021 9:38 AM FINDINGS: MAMMOGRAPHY: Breast composition: The breasts are extremely dense, which lowers the sensitivity of mammography. Mass: None. Architectural distortion: None. Calcifications: No suspicious calcifications. Asymmetric density: None. Skin thickening: None. Axillary adenopathy: None. IMPRESSION: No mammographic evidence of malignancy. Annual screening is recommended unless otherwise clinically indicated. ASSESSMENT: BI-RADS Category 1: Negative
== END ==
PROVIDERS: PCP Emergency Medicine; Visit Provider Emergency Medicine
DX: Z12.31 Encounter for screening mammogram for malignant neoplasm of breast (principal)
CPT/HCPCS: 77063; 77067

== ENCOUNTER 2022-11-08 15:13 | Emergency (ER) | payer OTHER, SELFPAY ==
--- NOTE | 2022-11-08 15:13 | ECG_ITS ---
APPROVED REPORT Exam: Resting ECG HR:83 bpm ECG Measurements Heart Rate 83 AXES DC 171 P 86 QRSd 72 QRS 83 QT 327 T 72 QTc 367 Conclusion SINUS RHYTHM NORMAL ECG UNCONFIRMED REPORT Electronically signed by : Beau Waite MD 11/11/2022 16:44:56
[2022-11-08 15:15] VITALS: BP 189/102; PULSE 79; RESP 23; TEMP 36.8; O2SAT 92; BMI 17.2
--- NOTE | 2022-11-08 15:24 | XR_ITS ---
FINAL REPORT TECHNIQUE: Chest PA & Lateral CLINICAL HISTORY: SOB COMPARISON: March 2021 FINDINGS: 2 views of the chest were performed. The heart size is normal. The mediastinum is within normal limits. There is scarring in the right lung apex. There is no acute infiltrate. There are no pleural effusions. There is no pneumothorax. The bony thorax appears intact. IMPRESSION: No acute cardiopulmonary process. Reviewed, Interpreted and Dictated by Bijan Tellez MD Transcribed by Ham Rhodes Authenticated and [facility]
[2022-11-08 15:30] VITALS: BP 148/88; PULSE 77; O2SAT 98
[2022-11-08 15:34] LABS: Basophils # 0.1 K/mm3 (0-0.2); Basophils % 0.5 % (0.1-2.0); Eosinophils # 0.1 K/mm3 (0.0-0.4); Eosinophils % 0.5 % (0.1-12.0); Hemoglobin 11.2 g/dL (12.2-16.2); Lymphocytes # 2.2 K/mm3 (0.7-4.5); Lymphocytes % 18.3 % (10-50); Mean Corpuscular HGB Conc 32.1 g/dL (31.8-35.4); Mean Corpuscular Hemoglobin 28.2 pg (27.0-31.2); Mean Corpuscular Volume 87.8 fl (81-99); Mean Platelet Volume 7.7 fl (7.4-10.4); Monocytes # 0.6 K/mm3 (0.1-1.0); Monocytes % 4.7 % (1.7-9.3); Neutrophils % 75.9 % (37.0-80.0); Platelet Count 412 K/mm3 (142-424); Red Blood Count 3.99 M/mm3 (4.20-5.40); Red Cell Distribution Width 13.5 % (11.5-17.5); White Blood Count 11.9 K/mm3 (4.8-10.8)
[2022-11-08 15:38] LABS: Chloride 97 mmol/L (98-107)
[2022-11-08 15:39] LABS: Potassium 4.4 mmoL/L (3.5-5.1); Sodium 134 mmol/L (136-145)
--- NOTE | 2022-11-08 15:39 | PC.NURSE ---
To XR via wheelchair
[2022-11-08 15:41] LABS: Blood Urea Nitrogen 13 mg/dl (7-17); Creatinine Clearance Estimated 67 mL/min (50-200); Estimated Glomerular Filt Rate 88 ml/min (>60); GFR (African American) 106 ML/MIN (>60)
[2022-11-08 15:42] LABS: Anion Gap 10.4 mEq/L (5-15); Calcium 8.5 mg/dl (8.4-10.2); Carbon Dioxide 31 mmol/L (22.0-30.0); Glucose 100 mg/dl (74-100)
--- NOTE | 2022-11-08 15:49 | HMH.EDGENADL ---
Discharge Plan Disposition Patient Disposition: Home, Self-Care Prescriptions Prescriptions: New doxycycline hyclate 100 mg capsule 100 mg PO BID 10 Days Qty: 20 0RF prednisone 50 mg tablet 50 mg PO DAILY 5 Days Qty: 5 0RF Rx Instructions: Please begin 1 day after ED visit albuterol sulfate 90 mcg/actuation HFA aerosol inhaler 4 inh inhalation Q4H PRN (Reason: shortness of breath or wheezing) Qty: 8.5 0RF Rx Instructions: 4 puffs every 4 hours for 48 hours then as needed for shortness of breath or wheezing following No Action ropinirole 1 mg tablet 1 mg PO HS Qty: 30 0RF levetiracetam 1,000 mg tablet 1,000 mg PO Q12H budesonide-formoterol [Symbicort] 80-4.5 mcg/actuation HFA aerosol inhaler 1 inh inhalation BID Qty: 10.2 2RF clonazepam [Klonopin] 0.5 mg tablet 0.5 mg PO BID Qty: 60 1RF ergocalciferol (vitamin D2) [Vitamin D2] 1,250 mcg (50,000 unit) capsule See Rx Instructions .ROUTE .COMPLEX Qty: 14 3RF Dose Instruction: TAKE 1 CAPSULE BY MOUTH ONCE A WEEK Rx Instructions: TAKE 1 CAPSULE BY MOUTH ONCE A WEEK lisinopril 20 mg tablet See Rx Instructions .ROUTE .COMPLEX Qty: 60 2RF Dose Instruction: TAKE 1 TABLET BY MOUTH TWICE DAILY FOR BLOOD PRESSURE Rx Instructions: TAKE 1 TABLET BY MOUTH TWICE DAILY FOR BLOOD PRESSURE albuterol sulfate [Ventolin HFA] 90 mcg/actuation HFA aerosol inhaler See Rx Instructions .ROUTE .COMPLEX Qty: 18 0RF Dose Instruction: 1 PUFF INHALATION EVERY SIX HOURS NEEDED FOR COPD Rx Instructions: 1 PUFF INHALATION EVERY SIX HOURS NEEDED FOR COPD Referrals Follow up/Referrals: Provider,Referral, MD [Referring] - See instructions Activity Restrictions/Add. Instructions Additional Instructions/Restrictions: Return to the emergency department with worsening symptoms otherwise follow-up with primary care doctor within a week. Clinical Impressions Clinical Impression: Asthma exacerbation in COPD Discharge ED Provider: Willard Nguyễn General Adult HPI General Chief complaint: Shortness of Breath/Dyspnea Stated complaint: CP/SOA Time Seen by Provider: 11/08/22 15:49 Mode of Arrival: Ambulatory Source of Information: Patient Limitations: No Limitations Description of Symptoms (Recalled from ER Triage Doc. by RN): pt to the ED with with SOB and midsternal chest pain x 3 days. pt reports she smokes 2-3 packs a day and uses home O2 as needed. History of Present Illness HPI narrative: 52-year-old female with history of COPD presents today with increasing shortness of breath wheezing productive cough for the last 2 weeks. States that she has been able to use her nebulizer at home with significant improvement however this is not overall making her better. No fevers or chills. No chest pain. She has had exertional dyspnea. No lower extremity swelling no history of any heart failure no history of any PE or DVT. Related Data Home Medications Medication Instructions Recorded Confirmed levetiracetam 1,000 mg tablet 1,000 mg PO Q12H 09/26/22 11/08/22 Previous Rx's Medication Instructions Recorded ropinirole 1 mg tablet 1 mg PO HS Restless leg #30 tabs 12/31/20 ergocalciferol (vitamin D2) 1,250 See Rx Instructions .Route 04/26/22 mcg (50,000 unit) capsule (Vitamin .COMPLEX #14 caps D2) budesonide-formoterol HFA 80 1 inh inhalation BID #10.2 grams 09/26/22 mcg-4.5 mcg/actuation aerosol inhaler (Symbicort) clonazepam 0.5 mg tablet (Klonopin) 0.5 mg PO BID #60 tabs 09/26/22 lisinopril 20 mg tablet See Rx Instructions .Route 10/10/22 .COMPLEX #60 tabs albuterol sulfate 90 mcg/actuation See Rx Instructions .Route 10/21/22 aerosol inhaler (Ventolin HFA) .COMPLEX #18 grams albuterol sulfate 90 mcg/actuation 4 inh inhalation Q4H PRN shortness 11/08/22 aerosol inhaler of breath or wheezing #8.5 grams doxycycline hyclate 100 mg capsule 100 mg PO BID 10 days #20 caps 11/08/22 predniso
[2022-11-08 15:58] LABS: Troponin I < 0.01 ng/ml (0.00-0.034)
[2022-11-08 16:00] VITALS: BP 153/90; PULSE 74; O2SAT 96
--- NOTE | 2022-11-08 16:15 | PC.NURSE ---
rad states sending down preliminary result on pt.
[2022-11-08 16:41] VITALS: BP 164/93; PULSE 72; RESP 18; TEMP 36.7; O2SAT 97
== END 2022-11-08 16:42 | disposition home or self-care (01) ==
PROVIDERS: Emergency Provider Student in an Organized Health Care Education/Training Program; PCP Emergency Medicine
DX: J44.1 Chronic obstructive pulmonary disease with (acute) exacerbation (principal); J45.901 Unspecified asthma with (acute) exacerbation
CPT/HCPCS: 71046; 80048; 84484; 85025; 93005; 99284; 99285

== ENCOUNTER 2022-12-02 08:10 | Day surgery (SDC) | payer OTHER, SELFPAY ==
[2022-12-01 12:48] VITALS: BMI 17.3
[2022-12-02] VITALS (7 sets, daily range): BP systolic 66–151; BP diastolic 39–91; PULSE 75–92; RESP 14–18; TEMP 36.4–36.7; O2SAT 93–100
--- NOTE | 2022-12-02 09:25 | EXP.ANES.CKL ---
[facility] Disclaimer: The information contained in this section may have been updated after the patient was seen, as this information can be updated by other users. Medical History COPD (chronic obstructive pulmonary disease) Dyspnea on exertion Encounter for screening for malignant neoplasm of lung in current smoker with 30 pack year history or greater Epileptic seizure Lung nodule Smoking greater than 30 pack years Tobacco abuse Tobacco abuse counseling Surgical History History of hysterectomy Family History Other Asthma COPD (chronic obstructive pulmonary disease) Hypertension Social History Smoking Status: Current every day smoker tobacco type: cigarettes packs per day: 1 alcohol intake: never substance use type: denies use current occupational status: disabled Travel in the last 8 weeks: None housing: other caffeine: Yes [facility] Anesthesia Checklist Patient Identification Patient Identification: Arm Band and Verbal (Name & ) Structural Data Admitted From: Home Planned Operative Procedure/s: Colonoscopy Consent for Planned Operative Procedure(s) Verified: Yes NPO Status Verified Time NPO: 00:00 Airway Assessment C-Spine Mobility Assessed: Yes TMJ Mobility Assessed: Yes Dentition: Edentulous Neurological Assessment Level of Consciousness: Awake Hx Seizures: No Numbness or tingling in extremities: No Anesthesia Plan Anesthesia Risk discussed: Yes Anesthesia Plan: Verified ASA Class: III Anesthesia Type: MAC
--- NOTE | 2022-12-02 10:00 | HMH.SCOPE ---
Procedure: Date: 12/02/22 Patient Date of :: 1970 Procedure Performed:: Total colonoscopy to terminal ileum Indications:: Patient is a 52-year-old female referred by Dr. Goldman for initial screening colonoscopy. She has some significant COPD/asthma, coronary artery disease, hyperlipidemia, hypertension. Apparently she had undergone a couple of Cologuard test but these were never able to be picked up by the delivery service. She was therefore scheduled for colonoscopy. Performing Provider:: Lino Bautista MD Referring Provider:: Dagoberto Goldman Sedation:: MAC sedation Procedure:: Patient history was obtained and appropriate physical examination was performed. Patient's medications and allergies were reviewed. Informed consent was obtained after explaining the benefits, alternatives, and risks of the procedure including, but not limited to, bleeding, perforation, missed lesions, and adverse reaction to anesthesia medications. Patient was transported to endoscopy procedure room. Patient was connected to monitoring devices. Throughout the procedure the patient's blood pressure, pulse, and oxygen saturations were monitored continuously. Patient identification and planned procedure were verified by the staff. Patient was positioned in lateral decubitus position. Digital anorectal exam was performed. Variable stiffness Olympus colonoscope was inserted and advanced under direct visualization to the cecum. Adequacy of the colonic preparation was noted. The colonoscope was advanced a short distance into the terminal ileum. The colonoscope was then slowly withdrawn while carefully examining the color, texture, anatomy, and integrity of the mucosoa circumferentially. Within the rectum retroflexion was performed. Colonoscope was then withdrawn. Findings:: Colonoscopy to terminal ileum normal with 1 or 2 minimal small diverticuli. Recommendations:: Repeat colonoscopy 7 to 10 years unless otherwise indicated Complications:: None immediately apparent Estimated blood obtained (mL): 0
--- NOTE | 2022-12-02 10:33 | SUR.PHASEII ---
upon arrival to post op pt vs 66/39. Thanh Jaimes [employer] aware and at bedside and pt placed in trendelenburg. no new orders.
== END 2022-12-02 10:45 | disposition home or self-care (01) ==
PROVIDERS: PCP Emergency Medicine; Visit Provider Surgery
PROC: 0DJD8ZZ Inspection of Lower Intestinal Tract, Via Natural or Artificial Opening Endoscopic (ICD-10-PCS; CPT 45378; principal; 2022-12-02 09:30)
DX: Z12.11 Encounter for screening for malignant neoplasm of colon (principal); F17.210 Nicotine dependence, cigarettes, uncomplicated; Z79.899 Other long term (current) drug therapy
CPT/HCPCS: 45378; J2704

== ENCOUNTER → 2022-12-07 13:04 | Outpatient (CLI) | payer OTHER, SELFPAY ==
--- NOTE | 2022-12-07 13:04 | MR_ITS ---
FINAL REPORT CLINICAL HISTORY: neck pain. BILATERAL ARM PAIN AND NUMBNESS. NO RECENT INJURY OR TRAUMA. COMPARISON: None FINDINGS: Multiplanar MR imaging of the cervical spine was performed without contrast. On the sagittal T2-weighted images, disc degeneration is seen throughout. There is no evidence of fracture. There is mild anterolisthesis of C6 on C7. The cervical spinal cord has an unremarkable appearance without evidence of mass, edema or syrinx. The cervicomedullary junction is normal. C2-3: There is no significant canal stenosis or neural foraminal narrowing. C3-4: Disc osteophyte complex. Severe bilateral neural foraminal narrowing. C4-5: Disc osteophyte complex. Severe bilateral neural foraminal narrowing. Mild central canal stenosis with AP diameter of the thecal sac of 8 mm. C5-6: Disc osteophyte complex. Severe bilateral neural foraminal narrowing. Mild central canal stenosis with AP diameter of the thecal sac of 8 mm. C6-7: Annular disc bulge. Mild bilateral neural foraminal narrowing. C7-T1: There is no significant canal stenosis or neural foraminal narrowing. IMPRESSION: Multilevel degenerative disc disease as above. Reviewed, Interpreted and Dictated by Lino Felipe III, MD Transcribed by Traci Heredia Authenticated and [facility]
--- NOTE | 2022-12-07 13:04 | MR_ITS ---
FINAL REPORT CLINICAL HISTORY: back pain. INTERMITTENT LEG NUMBNESS. NO RECENT INJURY OR TRAUMA FINDINGS: Multiplanar MR imaging of the lumbar spine was performed without contrast. Motion artifact is identified on some of the images. On the sagittal T2-weighted images, disc degeneration is seen at L3-4. There is mild retrolisthesis of L3 on 4. There is no evidence of fracture. The conus has an unremarkable appearance. T12-L1: There is no significant canal stenosis or neural foraminal narrowing. L1-2: There is no significant canal stenosis or neural foraminal narrowing. L2-3: An annular bulge is present. There is no significant canal stenosis or neural foraminal narrowing. L3-4: An annular bulge is present. There is a small central disc protrusion with mild bilateral neural foraminal narrowing. L4-5: An annular bulge is present. There is no significant canal stenosis or neural foraminal narrowing. L5-S1: There is no significant canal stenosis or neural foraminal narrowing. IMPRESSION: Small central disc protrusion at L3-4 with mild bilateral neural foraminal narrowing. Reviewed, Interpreted and Dictated by Lino Felipe III, MD Transcribed by Michelle Roblero Authenticated and [facility]
== END ==
PROVIDERS: PCP Emergency Medicine; Visit Provider Emergency Medicine
DX: M54.2 Cervicalgia (principal); M54.9 Dorsalgia, unspecified; M54.50 Low back pain, unspecified
CPT/HCPCS: 72141; 72148; 76376

== ENCOUNTER 2022-12-16 09:30 | Outpatient (RCR) | payer OTHER, SELFPAY ==
--- NOTE | 2022-12-07 11:01 | HMH.PTOPEV ---
PT Outpatient Evaluation Rehab PT Outpatient Evaluation Start: 12/07/22 09:17 Freq: Status: Active Protocol: Document 12/07/22 09:17 ANGEL (Rec: 12/07/22 09:29 ANGEL [id number]) E-signed By Linden Hidalgo, PT Outpatient Therapy Subjective History Subjective History Pt reports h/o chronic neck, mid back, and low back pain d/ t life long scoliosis. Pt reports exacerbation of s/s beginning insidiously ~3 weeks ago. Pt reports midline neck to low back pain, no radicular s/s reported, however, reports relief previously w/ lay person 'popping it for me. ' Chief Complaint Pain,Stiff Symptom Type Ache,Sharp,Dull Symptoms Relieved By Rest/Positioning,Heat Symptoms Aggravated By Bending/Stooping,Physical Activity,Twisting,Lifting Prior Functional Limitations Lifting,Housework,Bending/ Stooping Current Functional Limitations Lifting,Housework,Bending/ Stooping Symptom Description Constant but Variable Level of pain today (0-10) 6 Pain scale - at its best (0-10) 6 Pain scale - at its worst (0-10) 7 Cervical Eval Palpation Cervical Muscles R Cervical Paraspinal,L Cervical Paraspinal,R Suboccipital,L Suboccipital,R CT Junction,L CT Junction,R Upper Trapezius,L Upper Trapezius,R Thoracic Paraspinals,L Thoracic Paraspinals Cervical/Thoracic Palpation Findings Tenderness Posture Head/C-Spine Posture Sitting Position Flexed Head/C-Spine Posture Standing Position Flexed Flexibility Deficits Upper Trapezius Muscle Length (R) Mild Tightness,(L) Mild Tightness Levaetor Scapulae Muscle Length (R) Mild Tightness,(L) Mild Tightness Scalene Group Muscle Length (R) Mild Tightness,(L) Mild Tightness Passive Joint Mobility Cervical PIVM Dec: R OA L OA R AA L AA R C2/3 L C2/3 R C3/4 L C3/4 R C4/5
== END 2022-12-16 09:35 | disposition home or self-care (01) ==
LOC: PT 09:30
PROVIDERS: PCP Emergency Medicine; Visit Provider Emergency Medicine
DX: M54.2 Cervicalgia (principal); M54.9 Dorsalgia, unspecified; M54.6 Pain in thoracic spine
CPT/HCPCS: 97010; 97014; 97110; 97163; 97530; G0283

== ENCOUNTER → 2022-12-19 09:08 | Outpatient (POV) | payer OTHER, SELFPAY ==
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
[2022-12-19 09:47] VITALS: BP 145/66; PULSE 96; RESP 18; O2SAT 97; BMI 17.3
== END ==
PROVIDERS: PCP Emergency Medicine; Visit Provider Nurse Practitioner Family
DX: M51.16 Intervertebral disc disorders with radiculopathy, lumbar region (principal); M54.12 Radiculopathy, cervical region; M50.30 Other cervical disc degeneration, unspecified cervical region
CPT/HCPCS: 99202; G0463

== ENCOUNTER → 2022-12-30 12:54 | Outpatient (CLI) | payer OTHER, SELFPAY ==
[2022-12-30 14:30] VITALS: PULSE 89; PULSE 90
--- NOTE | 2022-12-30 15:01 | CT_ITS ---
FINAL REPORT CLINICAL HISTORY: lung cancer screening smoker, 1 ppd x 40 years. copd, emphysema COMPARISON: 04/09/2020 FINDINGS: CT CHEST LOW DOSE SCREENING DOSE: CTDI vol: 2.90 mGy, DLP: 112.55 mGy*cm TECHNIQUE: Axial CT without IV contrast administration using low dose protocol. This study was performed with techniques to keep radiation doses as low as reasonably achievable, (ALARA). Individualized dose reduction techniques using automated exposure control or adjustment of mA and/or kV according to the patient's size were employed. FINDINGS: Severe bullous emphysematous change right upper lobe. There are patchy irregular opacities in the right lung base involving the right middle lobe and left lobe. The left lung is clear. No pulmonary lesions are seen suspicious for neoplasm. No pleural or pericardial effusion is seen . No adenopathy or mass lesion is present . IMPRESSION: Patchy nodular infiltrates right lung base requiring further follow-up. No discrete lung nodule. LUNG-RADS 0: [address] chest follow-up. Reviewed, Interpreted and Dictated by Charley Guillory MD Transcribed by Traci Heredia Authenticated and [facility]
--- NOTE | 2022-12-30 15:08 | PC.NURSE ---
PT UNABLE TO COMPLETE DLCO PORTION OF PFT. ATTEMPTED MAXIMAL AMOUNT OF TIMES THAT MACHINE ALLOWS.
== END ==
PROVIDERS: PCP Emergency Medicine; Visit Provider Internal Medicine Pulmonary Disease
DX: Z87.891 Personal history of nicotine dependence (principal); Z12.2 Encounter for screening for malignant neoplasm of respiratory organs; R06.09 Other forms of dyspnea
CPT/HCPCS: 71271; 94060; 94618; 94640; 94727; 94729

== ENCOUNTER → 2023-01-09 09:53 | Outpatient (POV) | payer OTHER, SELFPAY ==
--- NOTE | 2023-01-09 10:39 | EXP.PAIN.SOA ---
[facility] Pain Management SOAP Note Subjective:: Patient is a pleasant 52-year-old female who presents today for epidural denial. We are currently treating the patient for degenerative disc disease of cervical and lumbar spine with cervical and lumbar radiculopathy symptoms, low back pain, neck pain. Today she rates her pain a 5 out of 10. Patient denies any new trauma or injury. Patient denies any change location or type of pain she experiences. She continues to states she is experiencing worsening pain in and around her neck with radiating symptoms into her upper extremities. This has been an ongoing issue for several years and progressively worsened over time. The pain is described as an aching, throbbing sensation with occasional sharp sensations and numbness. Patient does state that the pain interferes with her ability to perform activities of daily living such as cooking and cleaning. Patient has had cervical MRI that did show multilevel degenerative disc disease with stenosis. From our last visit we did recommend a cervical epidural steroid injection. She is currently managed with clonazepam 0.5 mg twice a day and [place] 5 mg twice a day from Dr. Goldman's office. Patient denies any side effects from these medications. She has also been using the methocarbamol 500 mg 3 times daily and ropinirole 1 mg at bedtime. She does have a fear of needles. Patient has tried [id number] Tylenol and ibuprofen along with heat and ice and multiple topicals. Patient did go to physical therapy however it caused significant pain and aggravated her symptoms. Patient is also tried a TENS unit. Her Payam is [id number]. Its been reviewed and appropriate. Review of Systems: General: No recent weight changes, no fever, no sleep disturbances Respiratory: No cough, no shortness of air, no recurring pulmonary infections Cardiovascular/peripheral vascular: No chest pain, no palpitations, no edema, no shortness of breath Gastrointestinal: No new onset incontinence, normal bowel movements reported Genitourinary: No new onset incontinence Musculoskeletal: Neck pain, bilateral upper arm pain Psychiatric: [Normal mood/affect] Neurological: [Denies weakness in extremities], [denies balance issues] Objective:: Physical Exam: General: Alert and oriented x3, no acute distress, pleasant and cooperative Lungs: Respirations even and unlabored, symmetrical chest expansion Eyes: PERRL Musculoskeletal: Flexion and extension of cervical [spine] somewhat guarded secondary to pain, [antalgic gait noted] Neurological: Speech clear, no gross sensory deficit FINAL REPORT CLINICAL HISTORY: neck pain. BILATERAL ARM PAIN AND NUMBNESS. NO RECENT INJURY OR TRAUMA. COMPARISON: None FINDINGS: Multiplanar MR imaging of the cervical spine was performed without contrast. ? On the sagittal T2-weighted images, disc degeneration is seen throughout.? There is no evidence of fracture.? There is mild anterolisthesis of C6 on C7.? The cervical spinal cord has an unremarkable appearance without evidence of mass, edema or syrinx. ? The cervicomedullary junction is normal.? ? C2-3:? There is no significant canal stenosis or neural foraminal narrowing.? C3-4:? Disc osteophyte complex.? Severe bilateral neural foraminal narrowing.? C4-5: Disc osteophyte complex.? Severe bilateral neural foraminal narrowing.? Mild central canal stenosis with AP diameter of the thecal sac of 8 mm. ? C5-6:? Disc osteophyte complex.? Severe bilateral neural foraminal narrowing.? Mild central canal stenosis with AP diameter of the thecal sac of 8 mm. ? C6-7: Annular disc bulge.? Mild bilateral neural foraminal narrowing. C7-T1:? There is no significant canal stenosis or neural foraminal narrowing. IMPRESSION: Multilevel degenerative disc disease as above. Reviewed, Interpreted and Dictated by Lino Felipe III, MD Transcribed by Traci Heredia Authenticated and Electronically Signed by Lino Felipe III, MD on
[2023-01-09 11:07] VITALS: BP 150/87; PULSE 98; RESP 18; O2SAT 96; BMI 17.5
== END ==
PROVIDERS: Visit Provider Nurse Practitioner Family
DX: M50.123 Cervical disc disorder at C6-C7 level with radiculopathy (principal); M51.16 Intervertebral disc disorders with radiculopathy, lumbar region
CPT/HCPCS: 99212; G0463

== ENCOUNTER 2023-01-17 12:12 | Day surgery (SDC) | payer OTHER, SELFPAY ==
[2023-01-17 12:47] VITALS: BP 126/69; PULSE 88; RESP 18; TEMP 36.3; O2SAT 99; BMI 17.5
[2023-01-17 12:54] VITALS: BP 135/82; PULSE 85; RESP 18; O2SAT 96
[2023-01-17 12:55] VITALS: BP 135/82; PULSE 85; RESP 18; O2SAT 97
[2023-01-17 13:04] VITALS: BP 129/74; PULSE 78; RESP 18; O2SAT 99
--- NOTE | 2023-01-17 13:05 | P.PCN_ITS ---
Procedure Date: 01/17/23 Time: 12:50 Anesthesiologist:: Anurag Rodriguez CRNA Complications:: None Pre-procedure Diagnosis:: Degenerative disc cervical spine. Cervical radiculopathy Post-procedure Diagnosis:: Same Indications for Procedure:: Very pleasant 52-year-old female comes our clinic today for cervical epidural steroid injection C6-7 level. Patient describes cervical neck pain as well as cervical radicular symptoms in the bilateral arms. She rates her pain 7/10 Procedure Details:: Procedure:Cervical epidural steroid injection Informed consent was obtained and the risks and benefits of the procedure were explained to the patient. The patient was taken to the procedure room and noninvasive monitors placed, including noninvasive blood pressure cuff and pulse oximeter. The neck was prepped using Chloraprep as a cleansing solution. The C6- C7 interspace was viewed using fluroscopy. The skin and subcutaneous tissues were anesthetized using lidocaine 1.5% and a 25-gauge needle. After this an 18- gauge Touhy epidural needle was placed into the C6-C7 interspace under fluroscopy guidance and advanced using loss of resistance to air until the epidural space was encountered. After confirmation of needle placement in the epidural space using contrast dye, a solution containing normal saline, 2 mL and Depo-Medrol 80 mg was incrementally injected into the cervical epidural space.~ The patient tolerated the procedure well with no complications. The patient was observed in the Pain Clinic and then discharged home neurologically intact. Plan and Disposition:: Patient was discharged without incident.
== END 2023-01-17 13:04 | disposition home or self-care (01) ==
PROVIDERS: PCP Emergency Medicine; Visit Provider Nurse Anesthetist, Certified Registered
DX: M50.123 Cervical disc disorder at C6-C7 level with radiculopathy (principal)
CPT/HCPCS: 62321; J1040; Q9966

== ENCOUNTER → 2023-01-26 15:43 | Outpatient (CLI) | payer OTHER, SELFPAY | PROVIDERS: PCP Emergency Medicine; Visit Provider Internal Medicine Pulmonary Disease | DX: R06.09 Other forms of dyspnea (principal) | CPT/HCPCS: 87070; 87205 ==

== ENCOUNTER → 2023-01-27 15:32 | Outpatient (CLI) | payer OTHER, SELFPAY | PROVIDERS: PCP Emergency Medicine; Visit Provider Internal Medicine Pulmonary Disease | DX: J44.9 Chronic obstructive pulmonary disease, unspecified (principal) | CPT/HCPCS: 87116; 87186; 87206 ==

== ENCOUNTER → 2023-02-01 13:48 | Outpatient (POV) | payer OTHER, SELFPAY ==
--- NOTE | 2023-02-01 14:15 | EXP.PAIN.SOA ---
[facility] Pain Management SOAP Note Subjective:: Patient is a pleasant 52-year-old female who presents today for follow-up of cervical epidural C6-C7 on 01/17/2023.? We are currently treating the patient for degenerative disc disease of cervical and lumbar spine with cervical and lumbar radiculopathy symptoms, low back pain, neck pain.? Today she rates her pain a 5 out of 10.? She states that she did have at least 40% improvement following this injection however it only provided approximately a little over a week worth of relief. She does believe that she is back to her baseline during today's visit. She denies any new trauma or injury.? Patient denies any change location or type of pain she experiences.? Today she states that her low back pain and leg pain is bothering her more than her neck pain. She states this is an aching, throbbing sensation with numbness that is worse with increased activity.? She does state the pain interferes with her ability to perform activities of daily living such as cooking and cleaning. She also states that she feels like the numbness causes her legs to give out. She is currently managed with clonazepam 0.5 mg twice a day and [place] 5 mg twice a day from Dr. Goldman's office.? Patient denies any side effects from these medications.? She has also been using the methocarbamol 500 mg 3 times daily and ropinirole 1 mg at bedtime.? She does have a fear of needles.? Patient has tried [id number] Tylenol and ibuprofen along with heat and ice and multiple topicals.? Patient has been to physical therapy however this made her symptoms worse. She does state that she is almost out of her pain medications and she could not get her follow-up appointment with Dr. Goldman's office until the first week of February. Her Payam is [id number].? Its been reviewed and appropriate. Review of Systems: General: No recent weight changes, no fever, no sleep disturbances Respiratory: No cough, no shortness of air, no recurring pulmonary infections Cardiovascular/peripheral vascular: No chest pain, no palpitations,? no edema, no shortness of breath Gastrointestinal: No new onset incontinence, normal bowel movements reported Genitourinary: No new onset incontinence Musculoskeletal: Low back pain, bilateral leg pain Psychiatric: [Normal mood/affect] Neurological: [Denies weakness in extremities], [denies balance issues] Objective:: Physical Exam: General: Alert and oriented x3, no acute distress, pleasant and cooperative Lungs: Respirations even and unlabored, symmetrical chest expansion Eyes: PERRL Musculoskeletal: Flexion and extension of lumbar [spine] somewhat guarded secondary to pain, [antalgic gait noted] Neurological: Speech clear, no gross sensory deficit Assessment:: Degenerative disc disease of cervical and lumbar spine with cervical and lumbar radiculopathy symptoms, low back pain, neck pain Plan:: Patient is experiencing worsening pain in her low back and legs with limited range of motion. Patient is having significant numbness that does cause her legs to give out. I have discussed with the patient that she may benefit from a lumbar epidural steroid injection. Risk and benefits were discussed with the patient and she would like to proceed forward with this plan of care. Patient is not on any blood thinners. Patient has tried and failed conservative therapy such as oral medications, heat and ice, topicals, physical therapy, at home stretching and exercise for longer than 6 weeks. We will schedule the patient for an LESI L4-L5. Patient has been instructed to contact the clinic with any concerns before the next appointment. Dr. Do has reviewed this note and agrees with this plan of care. This note was dictated using voice recognition software and make contain errors or omissions. [facility] Disclaimer: The information contained in this section may have been updated after the patient was seen, as this information can be updated by other users. Medical
[2023-02-01 15:45] VITALS: BP 138/84; PULSE 90; RESP 18; TEMP 36.6; O2SAT 96; BMI 17.2
== END ==
PROVIDERS: PCP Emergency Medicine; Visit Provider Nurse Practitioner Family
DX: M51.16 Intervertebral disc disorders with radiculopathy, lumbar region (principal); M50.10 Cervical disc disorder with radiculopathy, unspecified cervical region
CPT/HCPCS: 99212; G0463

== ENCOUNTER 2023-02-28 14:15 | Day surgery (SDC) | payer OTHER, SELFPAY ==
[2023-02-28 14:32] VITALS: BP 120/68; PULSE 94; RESP 18; TEMP 36.2; O2SAT 96; BMI 17.6
[2023-02-28 14:47] VITALS: BP 132/78; PULSE 92; RESP 18; O2SAT 96
[2023-02-28 14:50] VITALS: BP 128/71; PULSE 87; RESP 18; O2SAT 96
[2023-02-28 14:51] VITALS: BP 132/78; PULSE 92; RESP 18; O2SAT 96
--- NOTE | 2023-02-28 14:52 | P.PCN_ITS ---
Procedure Date: 02/28/23 Time: 14:45 Anesthesiologist:: Anurag Rodriguez CRNA Complications:: None Pre-procedure Diagnosis:: Degenerative disc lumbar spine multilevels. Lumbar radiculopathy. Post-procedure Diagnosis:: Same. Indications for Procedure:: Patient is a pleasant 52-year-old female that comes our clinic today for lumbar epidural steroid injection at L4-5 level. Patient reports low back pain as well as bilateral hip and leg radicular symptoms. She describes her pain as constant , dull, aching. She rates her pain 8/10. Procedure Details:: Procedure: Lumbar epidural steroid injection under fluoroscopy Informed consent was obtained and the risks and benefits of the procedure were explained to the patient. The patient was taken to the procedure room and noninvasive monitors placed, including noninvasive blood pressure cuff and pulse oximeter. The back was viewed using C-arm Fluoroscopy and prepped using Chloraprep as a cleansing solution and the L4-L5 interspace was palpated. Skin and subcutaneous tissues were anesthetized using lidocaine 1.5% and a 25-gauge needle. After this, an 18-gauge Touhy epidural needle was placed into the L4-L5 interspace and advanced using fluoroscopic guidance and loss of resistance to air until the epidural space was encountered. After confirmation of needle placement in the epidural space, with dye, a solution containing normal saline, 3 mL and Depo-Medrol 80 mg were incrementally injected into the lumbar epidural space. The patient tolerated the procedure well with no complications. The patient was observed in the Pain Clinic and then discharged home neurologically intact. Plan and Disposition:: Patient was discharged without incident.
== END 2023-02-28 14:50 | disposition home or self-care (01) ==
PROVIDERS: PCP Emergency Medicine; Visit Provider Nurse Anesthetist, Certified Registered
DX: M51.16 Intervertebral disc disorders with radiculopathy, lumbar region (principal)
CPT/HCPCS: 62323

== ENCOUNTER → 2023-03-22 11:00 | Outpatient (POV) | payer OTHER, SELFPAY ==
--- NOTE | 2023-03-22 12:02 | EXP.PAIN.SOA ---
[facility] Pain Management SOAP Note Subjective:: Patient is a pleasant 52-year-old female who presents today for follow-up of lumbar epidural steroid injection L4-L5 on 02/28/2023. We are currently treating the patient for degenerative disc disease of cervical and lumbar spine with cervical and lumbar radiculopathy symptoms, low back pain, neck pain. Today she rates her pain a 5 of 10. Patient denies any new trauma or injury. She denies any change location or type of pain she experiences. Patient states she had at least 50% improvement following this injection and it lasted for several hours or more. She does state that she felt like she overdid it doing more activities around the house and cooking and cleaning. She states during that time her pain was much more manageable and she felt more functional overall. Today she states that she is back to her baseline. She describes the pain as an aching, throbbing sensation that is worse with increased activity. She does have difficulty performing activities of daily living due to the pain. She is currently managed with clonazepam 0.5 mg twice a day and [place] 5 mg twice a day from Dr. Goldman's office. She is managed by our office with methocarbamol 500 mg 3 times a day and ropinirole 1 mg at bedtime. Patient denies any side effects from these medications. Her Payam is [id number]. Its been reviewed and appropriate. Review of Systems: General: No recent weight changes, no fever, no sleep disturbances Respiratory: No cough, no shortness of air, no recurring pulmonary infections Cardiovascular/peripheral vascular: No chest pain, no palpitations, no edema, no shortness of breath Gastrointestinal: No new onset incontinence, normal bowel movements reported Genitourinary: No new onset incontinence Musculoskeletal: Low back pain, leg pain Psychiatric: [Normal mood/affect] Neurological: [Denies weakness in extremities], [denies balance issues] Objective:: Physical Exam: General: Alert and oriented x3, no acute distress, pleasant and cooperative Lungs: Respirations even and unlabored, symmetrical chest expansion Eyes: PERRL Musculoskeletal: Flexion and extension of lumbar [spine] somewhat guarded secondary to pain, [antalgic gait noted] Neurological: Speech clear, no gross sensory deficit Assessment:: Degenerative disc disease of cervical and lumbar spine with cervical and lumbar radiculopathy symptoms, low back pain, neck pain Plan:: Patient is experiencing significant pain in her low back and legs with limited range of motion. I have discussed with the patient that she may benefit from a repeat lumbar epidural steroid injection as well as possible beneficial candidate for a intrathecal pain pump trial in the future. Risk and benefits were discussed with the patient and educational handouts were given on the pain pump during today's visit. Patient is not on any blood thinners. I will refill the patient's methocarbamol 500 mg 3 times a day and ropinirole 1 mg at bedtime and provide a 1 month supply of these medications. Patient will be scheduled for an LESI at L4-L5. We will discuss the possibility of a intrathecal pain pump trial later at future visits. Patient has been instructed to contact the clinic with any concerns before the next appointment. Dr. Do has reviewed this note and agrees with this plan of care. This note was dictated using voice recognition software and make contain errors or omissions. [facility] Disclaimer: The information contained in this section may have been updated after the patient was seen, as this information can be updated by other users. Medical History Atypical pneumonia COPD (chronic obstructive pulmonary disease) COPD (chronic obstructive pulmonary disease) Dyspnea on exertion Encounter for screening for malignant neoplasm of lung in current smoker with 30 pack year history or greater Epileptic seizure Lung nodule Smoking great
[2023-03-22 13:41] VITALS: BP 139/88; PULSE 91; RESP 18; O2SAT 93; BMI 16.9
== END | disposition home or self-care (01) ==
PROVIDERS: Visit Provider Nurse Practitioner Family
DX: M50.10 Cervical disc disorder with radiculopathy, unspecified cervical region (principal); M51.16 Intervertebral disc disorders with radiculopathy, lumbar region
CPT/HCPCS: 99212; G0463

== ENCOUNTER 2023-04-04 10:30 | Day surgery (SDC) | payer OTHER, SELFPAY ==
[2023-04-04 10:42] VITALS: BP 118/65; PULSE 77; RESP 16; TEMP 36.2; O2SAT 98; BMI 17.6
[2023-04-04 11:03] VITALS: BP 105/54; PULSE 69; RESP 18; O2SAT 98
[2023-04-04 11:04] VITALS: BP 105/54; PULSE 70; RESP 18; O2SAT 98
--- NOTE | 2023-04-04 11:04 | P.PCN_ITS ---
Procedure Date: 04/04/23 Time: 11:00 Anesthesiologist:: Anurag Rodriguez CRNA Complications:: None Pre-procedure Diagnosis:: Degenerative disc disease lumbar spine multilevels. Lumbar radiculopathy. Post-procedure Diagnosis:: Same. Indications for Procedure:: Patient is a pleasant 52-year-old female comes our clinic today for repeat lumbar epidural steroid injection. Patient states previous injections at the same level has been significant improvement terms of her overall back pain as we ll as bilateral hip and leg radicular symptoms. Procedure Details:: Procedure: Lumbar epidural steroid injection under fluoroscopy Informed consent was obtained and the risks and benefits of the procedure were explained to the patient. The patient was taken to the procedure room and noninvasive monitors placed, including noninvasive blood pressure cuff and pulse oximeter. The back was viewed using C-arm Fluoroscopy and prepped using Chloraprep as a cleansing solution and the L4-L5 interspace was palpated. Skin and subcutaneous tissues were anesthetized using lidocaine 1.5% and a 25-gauge needle. After this, an 18-gauge Touhy epidural needle was placed into the L4-L5 interspace and advanced using fluoroscopic guidance and loss of resistance to air until the epidural space was encountered. After confirmation of needle placement in the epidural space, with dye, a solution containing normal saline, 3 mL and Depo-Medrol 80 mg were incrementally injected into the lumbar epidural space. The patient tolerated the procedure well with no complications. The patient was observed in the Pain Clinic and then discharged home neurologically intact. Plan and Disposition:: Patient was discharged without incident.
[2023-04-04 11:11] VITALS: BP 128/76; PULSE 68; RESP 16; O2SAT 98
== END 2023-04-04 11:11 | disposition home or self-care (01) ==
PROVIDERS: PCP Emergency Medicine; Visit Provider Nurse Anesthetist, Certified Registered
DX: M51.16 Intervertebral disc disorders with radiculopathy, lumbar region (principal)
CPT/HCPCS: 62323; J1040

== ENCOUNTER → 2023-04-20 13:05 | Outpatient (POV) | payer OTHER, SELFPAY ==
--- NOTE | 2023-04-20 13:14 | EXP.PAIN.SOA ---
[facility] Pain Management SOAP Note Subjective:: Patient is a pleasant 52-year-old female who presents today for follow-up of lumbar epidural steroid injection of L4-L5 on 04/04/2023. We are currently treating the patient for degenerative disc disease of the cervical and lumbar spine with cervical and lumbar radiculopathy symptoms, low back pain, neck pain. Today she rates her pain a 2 out of 10. Patient states she has had at least 50% improvement following this injection and that it is still currently providing additional relief. Patient states she has been able to increase her activity with decreased pain symptoms and feels overall more functional. Patient is currently managed with clonazepam 0.5 mg twice a day and [place] 5 mg 4 times a day from Dr. Goldman's office. She is prescribed methocarbamol 500 mg 3 times a day and ropinirole 1 mg at bedtime from our office. Patient denies any side effects from this medication. Her Payam is [id number]. Its been reviewed and appropriate. Review of Systems: General: No recent weight changes, no fever, no sleep disturbances Respiratory: No cough, no shortness of air, no recurring pulmonary infections Cardiovascular/peripheral vascular: No chest pain, no palpitations, no edema, no shortness of breath Gastrointestinal: No new onset incontinence, normal bowel movements reported Genitourinary: No new onset incontinence Musculoskeletal: Low back pain Psychiatric: [Normal mood/affect] Neurological: [Denies weakness in extremities], [denies balance issues] Objective:: Physical Exam: General: Alert and oriented x3, no acute distress, pleasant and cooperative Lungs: Respirations even and unlabored, symmetrical chest expansion Eyes: PERRL Musculoskeletal: Flexion and extension of lumbar [spine] somewhat guarded secondary to pain, [antalgic gait noted] Neurological: Speech clear, no gross sensory deficit Assessment:: Degenerative disc disease of cervical and lumbar spine with cervical and lumbar radiculopathy symptoms, neck pain, low back pain Plan:: Patient has had significant improvement following her lumbar epidural and does not require any additional injective therapy at this time. I will refill the patient's methocarbamol 500 mg 3 times a day and ropinirole 1 mg at bedtime and provide a 1 month supply of this medication. Patient will return to clinic in 1 month for reevaluation of symptoms and plan of care. Patient has been instructed to contact the clinic with any concerns before the next appointment. Dr. Do has reviewed this note and agrees with this plan of care. This note was dictated using voice recognition software and make contain errors or omissions. [facility] Disclaimer: The information contained in this section may have been updated after the patient was seen, as this information can be updated by other users. Medical History Atypical pneumonia COPD (chronic obstructive pulmonary disease) COPD (chronic obstructive pulmonary disease) Dyspnea on exertion Encounter for screening for malignant neoplasm of lung in current smoker with 30 pack year history or greater Epileptic seizure Lung nodule Smoking greater than 30 pack years Tobacco abuse Tobacco abuse counseling Surgical History History of hysterectomy Family History Other Asthma COPD (chronic obstructive pulmonary disease) Hypertension Social History Smoking Status: Current every day smoker tobacco type: cigarettes packs per day: 1 alcohol intake: never substance use type: denies use current occupational status: disabled Travel in the last 8 weeks: None housing: other caffeine: Yes
[2023-04-20 14:33] VITALS: BP 126/76; PULSE 74; RESP 19; O2SAT 100; BMI 17.5
== END | disposition home or self-care (01) ==
PROVIDERS: PCP Emergency Medicine; Visit Provider Nurse Practitioner Family
DX: M50.10 Cervical disc disorder with radiculopathy, unspecified cervical region (principal); M51.16 Intervertebral disc disorders with radiculopathy, lumbar region
CPT/HCPCS: 99212; G0463

== ENCOUNTER → 2023-05-11 09:52 | Outpatient (CLI) | payer OTHER, SELFPAY ==
--- NOTE | 2023-05-11 10:14 | CT_ITS ---
FINAL REPORT TECHNIQUE: Axial images were obtained through the chest without contrast. CLINICAL HISTORY: lung nodules COMPARISON: CT low-dose 12/30/2022 FINDINGS: No evidence of mediastinal mass or adenopathy. The heart size is normal. There is no pericardial or pleural effusion. There is a peripherally calcified bulla at the right apex measuring approximally 5.5 cm in greatest dimension. The previously noted patchy nodular opacities in the right middle lobe and both lower lobes have largely resolved and presumed inflammatory. There is scarring at the bases. IMPRESSION: Resolution of previously noted nodular patchy opacities right middle lobe and lung bases consistent with resolved pneumonia. Right apical bulla. Reviewed, Interpreted and Dictated by Bijan Tellez MD Transcribed by Traci Heredia Authenticated and [facility]
== END ==
PROVIDERS: PCP Emergency Medicine; Visit Provider Internal Medicine Pulmonary Disease
DX: R91.8 Other nonspecific abnormal finding of lung field (principal)
CPT/HCPCS: 71250; 94618

== ENCOUNTER → 2023-05-18 14:08 | Outpatient (POV) | payer OTHER, SELFPAY ==
--- NOTE | 2023-05-18 14:28 | EXP.PAIN.SOA ---
[facility] Pain Management SOAP Note Subjective:: Patient is a pleasant 52-year-old female who presents today for 1 month follow-up. We are currently treating the patient for degenerative disc disease of cervical and lumbar spine with cervical and lumbar radiculopathy symptoms. Today she rates her pain a 2 out of 10. Patient denies any new trauma or injury. Patient denies any change location or type of pain she experiences. Patient does state that she continues to do well from our last visit and has continued to have pain improvement from the lumbar epidural L4-L5 that was done in the middle of March. Patient states she continues to be able to move around easier with decreased pain symptoms and feels more functional. Patient is currently on clonazepam 0.5 mg twice a day and [place] 5 mg 4 times a day from Dr. Goldman's office and methocarbamol 500 mg 3 times a day with ropinirole 1 mg at bedtime from our office. She denies any side effects from this medication. Her Payam is [id number]. Its been reviewed and appropriate. Review of Systems: General: No recent weight changes, no fever, no sleep disturbances Respiratory: No cough, no shortness of air, no recurring pulmonary infections Cardiovascular/peripheral vascular: No chest pain, no palpitations, no edema, no shortness of breath Gastrointestinal: No new onset incontinence, normal bowel movements reported Genitourinary: No new onset incontinence Musculoskeletal: Low back pain Psychiatric: [Normal mood/affect] Neurological: [Denies weakness in extremities], [denies balance issues] Objective:: Physical Exam: General: Alert and oriented x3, no acute distress, pleasant and cooperative Lungs: Respirations even and unlabored, symmetrical chest expansion Eyes: PERRL Musculoskeletal: Flexion and extension of lumbar [spine] somewhat guarded secondary to pain, [antalgic gait noted] Neurological: Speech clear, no gross sensory deficit Assessment:: Degenerative disc disease of cervical and lumbar spine with cervical and lumbar radiculopathy symptoms Plan:: Patient continues to do well following her lumbar epidural steroid injection and does not require any additional injective therapy at this time. I will send in a refill of the patient's methocarbamol 500 mg 3 times a day and ropinirole 1 mg at bedtime and provide a 3-month supply of this medication. Patient will return to clinic in 3 months for reevaluation of symptoms and plan of care. Patient has been instructed to contact the clinic with any concerns before the next appointment. Dr. Do has reviewed this note and agrees with this plan of care. This note was dictated using voice recognition software and make contain errors or omissions. [facility] Disclaimer: The information contained in this section may have been updated after the patient was seen, as this information can be updated by other users. Medical History (Updated 05/02/23 @ 10:09 by Stacey Rios RT) Atypical pneumonia COPD (chronic obstructive pulmonary disease) COPD (chronic obstructive pulmonary disease) Dyspnea on exertion Encounter for screening for malignant neoplasm of lung in current smoker with 30 pack year history or greater Epileptic seizure Lung nodule Smoking greater than 30 pack years Tobacco abuse Tobacco abuse counseling Surgical History History of hysterectomy Family History Other Asthma COPD (chronic obstructive pulmonary disease) Hypertension Social History Smoking Status: Current every day smoker tobacco type: cigarettes packs per day: 1 alcohol intake: never substance use type: denies use current occupational status: disabled Travel in the last 8 weeks: None housing: other caffeine: Yes
[2023-05-18 14:46] VITALS: BP 122/55; PULSE 80; RESP 18; O2SAT 96; BMI 17.5
== END | disposition home or self-care (01) ==
PROVIDERS: PCP Emergency Medicine; Visit Provider Nurse Practitioner Family
DX: M50.10 Cervical disc disorder with radiculopathy, unspecified cervical region (principal); M51.16 Intervertebral disc disorders with radiculopathy, lumbar region
CPT/HCPCS: 99212; G0463

== ENCOUNTER → 2023-06-02 23:18 | Outpatient (CLI) | payer OTHER, SELFPAY ==
[2023-06-02 19:25] LABS: Amphetamine/Metha Screen,Urine Negative ng/ml (<1000)
[2023-06-02 19:26] LABS: Barbiturates Screen,Urine Negative ng/ml (<200)
[2023-06-02 19:27] LABS: Benzodiazepines Screen,Urine Negative ng/ml (<200); Cannabinoid Screen,Urine Positive ng/ml (<50)
[2023-06-02 19:30] LABS: Cocaine Screen,Urine Negative ng/ml (<300); Methadone Screen,Urine Negative ng/ml (<300)
[2023-06-02 19:32] LABS: Phencyclidine Screen,Urine Negative ng/ml (<25)
[2023-06-02 19:33] LABS: Opiate Screen,Urine Positive ng/ml (<300)
== END ==
PROVIDERS: PCP Emergency Medicine; Visit Provider Emergency Medicine
DX: Z79.899 Other long term (current) drug therapy (principal)
CPT/HCPCS: 80305

== ENCOUNTER → 2023-07-28 11:54 | Outpatient (CLI) | payer OTHER, SELFPAY ==
[2023-08-03 19:33] LABS: Amphetamine/Metha Screen,Urine Negative ng/ml (<1000)
[2023-08-03 19:34] LABS: Barbiturates Screen,Urine Negative ng/ml (<200)
[2023-08-03 19:35] LABS: Benzodiazepines Screen,Urine Negative ng/ml (<200)
[2023-08-03 19:36] LABS: Cannabinoid Screen,Urine Positive ng/ml (<50)
[2023-08-03 19:38] LABS: Opiate Screen,Urine Positive ng/ml (<300)
[2023-08-03 19:39] LABS: Methadone Screen,Urine Negative ng/ml (<300); Phencyclidine Screen,Urine Negative ng/ml (<25)
[2023-08-03 19:46] LABS: Cocaine Screen,Urine Negative ng/ml (<300)
[2023-08-08 18:40] LABS: Alprazolam Negative (Cutoff=100); Benzodiazepines Negative ng/mL (Cutoff=100); Clonazepam Negative (Cutoff=100); Flurazepam Negative (Cutoff=100); Lorazepam Negative (Cutoff=100); Midazolam Negative (Cutoff=100); Temazepam Negative (Cutoff=100); Triazolam Negative (Cutoff=100)
== END ==
PROVIDERS: PCP Internal Medicine; Visit Provider Internal Medicine
DX: Z79.899 Other long term (current) drug therapy (principal)
CPT/HCPCS: 80305; 80346

== ENCOUNTER → 2023-08-03 23:00 | Outpatient (CLI) | payer OTHER, SELFPAY | PROVIDERS: PCP Internal Medicine; Visit Provider Internal Medicine | DX: N39.0 Urinary tract infection, site not specified (principal) ==

== ENCOUNTER → 2023-08-15 13:13 | Outpatient (POV) | payer OTHER, SELFPAY ==
--- NOTE | 2023-08-15 13:30 | A.OFFVIS_ITS ---
[facility] Pain Management SOAP Note Subjective:: This patient is a very pleasant 52-year-old female comes our clinic today for a 1 month follow-up regarding medication refills. We are currently treating the patient for chronic low back pain as well as chronic cervical neck pain. Low back pain secondary to degenerative disc disease lumbar spine multilevels. Lumbar radiculopathy. Posterior cervical neck pain with cervical radicular symptoms at times. She rates her pain today 4/10. Patient continues taking [place] 5 mg 1 p.o. 4 times daily from her PCP. Patient reports her PCP has recently stated he will change her clonazepam 0.5 mg twice daily to Valium. However, she has not begun this medication at the time of visit. We currently give the patient methocarbamol 500 mg 1 p.o. 3 times daily. Also, ropinirole 1 mg 1 p.o. nightly. The patient's Payam #[id number] has been reviewed and appropriate. Patient states the medications we give her is helping with overall myalgia pain as well as sleep. Objective:: Patient is awake alert [place] x 3. In no acute distress. Flexion-extension cervical lumbar spine somewhat guarded secondary to pain. Deep tendon reflexes upper and lower extremities normal. Motor strength upper and lower extremities normal. There is no gross sensory deficit. Gait is normal. Assessment:: Degenerative disc disease lumbar spine multilevels. Lumbar radiculopathy. Degenerative disc cervical spine multilevels. Cervical radiculopathy. Plan:: I answered the patient's questions. She will return to see us in 1 month. [facility] Disclaimer: The information contained in this section may have been updated after the patient was seen, as this information can be updated by other users. Medical History Atypical pneumonia COPD (chronic obstructive pulmonary disease) COPD (chronic obstructive pulmonary disease) Dyspnea on exertion Encounter for screening for malignant neoplasm of lung in current smoker with 30 pack year history or greater Epileptic seizure Lung nodule Smoking greater than 30 pack years Tobacco abuse Tobacco abuse counseling Tobacco dependence syndrome Surgical History History of hysterectomy Family History Other Asthma COPD (chronic obstructive pulmonary disease) Hypertension Social History Smoking Status: Current every day smoker tobacco type: cigarettes packs per day: 1 alcohol intake: never substance use type: denies use current occupational status: disabled Travel in the last 8 weeks: None housing: other caffeine: Yes
[2023-08-15 13:35] VITALS: BP 129/71; PULSE 93; RESP 18; O2SAT 95; BMI 20.4
== END | disposition home or self-care (01) ==
PROVIDERS: PCP Internal Medicine; Visit Provider Nurse Anesthetist, Certified Registered
DX: M51.16 Intervertebral disc disorders with radiculopathy, lumbar region (principal); M50.10 Cervical disc disorder with radiculopathy, unspecified cervical region
CPT/HCPCS: 99212; G0463

== ENCOUNTER 2023-08-23 07:14 | Outpatient (CLI) | payer OTHER, SELFPAY ==
[2023-08-23 22:28] LABS: Amphetamine/Metha Screen,Urine Negative ng/ml (<1000)
[2023-08-23 22:29] LABS: Cannabinoid Screen,Urine Negative ng/ml (<50)
[2023-08-23 22:30] LABS: Cocaine Screen,Urine Negative ng/ml (<300)
[2023-08-23 22:31] LABS: Opiate Screen,Urine Positive ng/ml (<300); Phencyclidine Screen,Urine Negative ng/ml (<25)
[2023-08-23 23:06] LABS: Barbiturates Screen,Urine Negative ng/ml (<200); Benzodiazepines Screen,Urine Negative ng/ml (<200); Methadone Screen,Urine Negative ng/ml (<300)
== END 2023-08-23 23:59 ==
LOC: LAB.DROPOF 08-24 07:14
PROVIDERS: PCP Nurse Practitioner Family; Visit Provider Nurse Practitioner Family
DX: F41.9 Anxiety disorder, unspecified (principal)
CPT/HCPCS: 80307

== ENCOUNTER → 2023-09-18 11:14 | Outpatient (POV) | payer OTHER, SELFPAY ==
--- NOTE | 2023-09-18 11:32 | A.OFFVIS_ITS ---
[facility] Pain Management SOAP Note Subjective:: Patient is a pleasant 52-year-old female who presents today for follow-up. We are currently treating the patient for degenerative disc disease of cervical and lumbar spine with cervical and lumbar radiculopathy symptoms. Today she rates her pain a 5 out of 10. Patient denies any new trauma or injury. She is currently on clonazepam 0.5 mg twice a day and [place] 5 mg 4 times a day from Dr. Goldman's office and methocarbamol 500 mg 3 times a day with ropinirole 1 mg at bedtime from our office. Is working against her seizure medication. Patient states that she has not had any additional seizures she just feels like it is interacting with this medication however. she does state today that she feels like the muscle relaxer we have prescribed her Review of Systems: General: No recent weight changes, no fever, no sleep disturbances Respiratory: No cough, no shortness of air, no recurring pulmonary infections Cardiovascular/peripheral vascular: No chest pain, no palpitations, no edema, no shortness of breath Gastrointestinal: No new onset incontinence, normal bowel movements reported Genitourinary: No new onset incontinence Musculoskeletal: Low back pain Psychiatric: [Normal mood/affect] Neurological: [Denies weakness in extremities], [denies balance issues] Objective:: Physical Exam: General: Alert and oriented x3, no acute distress, pleasant and cooperative Lungs: Respirations even and unlabored, symmetrical chest expansion Eyes: PERRL Musculoskeletal: Flexion and extension of lumbar [spine] somewhat guarded secondary to pain, [antalgic gait noted] Neurological: Speech clear, no gross sensory deficit Assessment:: Degenerative disc disease of cervical and lumbar spine with cervical and lumbar radiculopathy symptoms Plan:: I have counseled the patient due to feeling like she is having some sort of reaction between her seizure medication and the methocarbamol that we will discontinue this medication. I have counseled the patient that there were no previous interactions noted between her medications when the Robaxin was originally prescribed. I will send in a 2-week supply of baclofen 10 mg 3 times daily as needed and have the patient follow-up in 2 weeks for reevaluation of symptoms and plan of care. \ Patient has been instructed to contact the clinic with any concerns before the next appointment. Dr. Do has reviewed this note and agrees with this plan of care. This note was dictated using voice recognition software and make contain errors or omissions. [facility] Disclaimer: The information contained in this section may have been updated after the patient was seen, as this information can be updated by other users. Medical History Atypical pneumonia COPD (chronic obstructive pulmonary disease) COPD (chronic obstructive pulmonary disease) Dyspnea on exertion Encounter for screening for malignant neoplasm of lung in current smoker with 30 pack year history or greater Epileptic seizure Lung nodule Smoking greater than 30 pack years Tobacco abuse Tobacco abuse counseling Tobacco dependence syndrome Surgical History History of hysterectomy Family History Other Asthma COPD (chronic obstructive pulmonary disease) Hypertension Social History Smoking Status: Current every day smoker tobacco type: cigarettes packs per day: 1 alcohol intake: never substance use type: denies use current occupational status: disabled Travel in the last 8 weeks: None housing: other caffeine: Yes
[2023-09-18 12:06] VITALS: BP 124/83; PULSE 97; RESP 18; O2SAT 92; BMI 16.1
== END | disposition home or self-care (01) ==
PROVIDERS: PCP Nurse Practitioner Family; Visit Provider Nurse Practitioner Family
DX: M50.10 Cervical disc disorder with radiculopathy, unspecified cervical region (principal); M51.16 Intervertebral disc disorders with radiculopathy, lumbar region
CPT/HCPCS: 99212; G0463

== ENCOUNTER → 2023-10-09 13:37 | Outpatient (POV) | payer OTHER, SELFPAY ==
[2023-10-09 13:46] VITALS: BP 149/99; PULSE 103; RESP 18; O2SAT 92; BMI 16.2
--- NOTE | 2023-10-09 13:52 | A.OFFVIS_ITS ---
[facility] Pain Management SOAP Note Subjective:: Patient is a pleasant 52-year-old female who presents today for medication refill and follow-up. We are currently treating the patient for degenerative disc disease of cervical and lumbar spine with cervical and lumbar radiculopathy symptoms. Today she rates her pain a 3 out of 10. Patient denies any new trauma or injury. She does state that the baclofen did improve her symptoms and she feels like this is more manageable on a daily basis. Patient is currently managed with baclofen 10 mg 3 times a day and ropinirole 1 mg at night from our office and diazepam 2 mg twice a day with [place] 5 mg 4 times a day from her primary care provider. She denies any side effects from these medications. Her Payam has been reviewed and is appropriate. Review of Systems: General: No recent weight changes, no fever, no sleep disturbances Respiratory: No cough, no shortness of air, no recurring pulmonary infections Cardiovascular/peripheral vascular: No chest pain, no palpitations, no edema, no shortness of breath Gastrointestinal: No new onset incontinence, normal bowel movements reported Genitourinary: No new onset incontinence Musculoskeletal: Low back pain Psychiatric: [Normal mood/affect] Neurological: [Denies weakness in extremities], [denies balance issues] Objective:: Physical Exam: General: Alert and oriented x3, no acute distress, pleasant and cooperative Lungs: Respirations even and unlabored, symmetrical chest expansion Eyes: PERRL Musculoskeletal: Flexion and extension of lumbar [spine] somewhat guarded secondary to pain, [antalgic gait noted] Neurological: Speech clear, no gross sensory deficit Assessment:: Degenerative disc disease of cervical and lumbar spine with cervical and lumbar radiculopathy symptoms Plan:: Patient is doing well with her current medication regimen. I will send in refills of her baclofen 10 mg 3 times a day and ropinirole 1 mg at bedtime and provide a 3-month supply of this medication. Patient will return to clinic in 3 months for reevaluation of symptoms and plan of care. Patient has been instructed to contact the clinic with any concerns before the next appointment. Dr. Do has reviewed this note and agrees with this plan of care. This note was dictated using voice recognition software and make contain errors or omissions. [facility] Disclaimer: The information contained in this section may have been updated after the patient was seen, as this information can be updated by other users. Medical History Atypical pneumonia COPD (chronic obstructive pulmonary disease) COPD (chronic obstructive pulmonary disease) Dyspnea on exertion Encounter for screening for malignant neoplasm of lung in current smoker with 30 pack year history or greater Epileptic seizure Lung nodule Smoking greater than 30 pack years Tobacco abuse Tobacco abuse counseling Tobacco dependence syndrome Surgical History History of hysterectomy Family History Other Asthma COPD (chronic obstructive pulmonary disease) Hypertension Social History Smoking Status: Current every day smoker tobacco type: cigarettes packs per day: 1 alcohol intake: never substance use type: denies use current occupational status: unemployed Travel in the last 8 weeks: None housing: other caffeine: Yes
== END ==
PROVIDERS: PCP Internal Medicine; Visit Provider Nurse Practitioner Family
DX: M50.10 Cervical disc disorder with radiculopathy, unspecified cervical region (principal); M51.16 Intervertebral disc disorders with radiculopathy, lumbar region
CPT/HCPCS: 99212; G0463

== ENCOUNTER 2024-01-04 09:51 | Outpatient (POV) | payer OTHER, SELFPAY ==
[2024-01-04 10:00] VITALS: BP 132/74; PULSE 71; RESP 19; O2SAT 95; BMI 16.2
--- NOTE | 2024-01-04 10:01 | A.OFFVIS_ITS ---
[facility] Pain Management SOAP Note Subjective:: Patient is a pleasant 53-year-old female who presents today for 3-month follow- up and medication refill. Today she rates her pain a 6 out of 10. Patient does states she is a little under the weather. She states a lot of it has to do with her COPD and her allergies flaring up. Patient denies going to the doctor any recently. Patient is prescribed baclofen 10 mg 3 times a day and ropinirole 1 mg at night from our office and diazepam and [place] from her PCP. She denies any side effects from these medications. She does state that they still continue to help her move around easier with overall improved function. Her Payam has been reviewed and is appropriate. Review of Systems: General: No recent weight changes, no fever, no sleep disturbances Respiratory: No cough, no shortness of air, no recurring pulmonary infections Cardiovascular/peripheral vascular: No chest pain, no palpitations, no edema, no shortness of breath Gastrointestinal: No new onset incontinence, normal bowel movements reported Genitourinary: No new onset incontinence Musculoskeletal: Low back pain Psychiatric: [Normal mood/affect] Neurological: [Denies weakness in extremities], [denies balance issues] Objective:: Physical Exam: General: Alert and oriented x3, no acute distress, pleasant and cooperative Lungs: Respirations even and unlabored, symmetrical chest expansion Eyes: PERRL Musculoskeletal: Flexion and extension of lumbar [spine] somewhat guarded secondary to pain, [antalgic gait noted] Neurological: Speech clear, no gross sensory deficit Assessment:: Degenerative disc disease of cervical and lumbar spine with cervical and lumbar radiculopathy symptoms Plan:: I will provide a 3-month supply of her ropinirole and baclofen. I will also sen d in a 5-day dose of prednisone 20 mg twice a day. Patient will return to clinic in 3 months for reevaluation of symptoms and plan of care. Patient was counseled that if her symptoms worsen or do not improve I do recommend she be seen with urgent care or her primary care. Patient acknowledges understanding and agrees with this plan of care. Patient has been instructed to contact the clinic with any concerns before the next appointment. Dr. Do has reviewed this note and agrees with this plan of care. This note was dictated using voice recognition software and make contain errors or omissions. [facility] Disclaimer: The information contained in this section may have been updated after the patient was seen, as this information can be updated by other users. Medical History Atypical pneumonia COPD (chronic obstructive pulmonary disease) COPD (chronic obstructive pulmonary disease) Dyspnea on exertion Encounter for screening for malignant neoplasm of lung in current smoker with 30 pack year history or greater Epileptic seizure Lung nodule Smoking greater than 30 pack years Tobacco abuse Tobacco abuse counseling Tobacco dependence syndrome Surgical History History of hysterectomy Family History Other Asthma COPD (chronic obstructive pulmonary disease) Hypertension Social History Smoking Status: Current every day smoker tobacco type: cigarettes packs per day: 1 alcohol intake: never substance use type: denies use current occupational status: unemployed Travel in the last 8 weeks: None housing: other caffeine: Yes
== END 2024-01-04 23:59 | disposition home or self-care (01) ==
PROVIDERS: PCP Nurse Practitioner Family; Visit Provider Nurse Practitioner Family
DX: M50.10 Cervical disc disorder with radiculopathy, unspecified cervical region (principal); M51.16 Intervertebral disc disorders with radiculopathy, lumbar region
CPT/HCPCS: 99212; G0463

== ENCOUNTER 2024-08-02 09:12 | Emergency (ER) | payer OTHER, SELFPAY ==
[2024-08-02] VITALS (9 sets, daily range): BP systolic 130–168; BP diastolic 78–92; PULSE 77–110; RESP 16–18; TEMP 36.6; O2SAT 86–100; BMI 17.2
--- NOTE | 2024-08-02 09:19 | ECG_ITS ---
APPROVED REPORT Exam: Resting ECG HR:86 bpm ECG Measurements Heart Rate 86 AXES [place] 165 P 79 QRSd 74 QRS 90 QT 349 T 78 QTc 392 Conclusion SINUS RHYTHM WITH OCCASIONAL VENTRICULAR PREMATURE COMPLEXES LOW QRS VOLTAGE IN PRECORDIAL LEADS [QRS DEFLECTION < 1.0 mV IN CHEST LEADS] ST DEVIATION AND MODERATE T-WAVE ABNORMALITY, CONSIDER LATERAL ISCHEMIA [-0.1+ mV T-WAVE IN I/aVL/V5/V6] ABNORMAL ECG Significant chatter Electronically signed by : HARRY CHAN, 08/10/2024 07:26:20
--- NOTE | 2024-08-02 09:22 | PC.NURSE ---
pt placed on 2 liters of oxygen to help breathing her o2 sats at ra was 86
--- NOTE | 2024-08-02 09:33 | HMH.EDCP ---
Discharge Plan Disposition Patient Disposition: Home, Self-Care Condition: Good Prescriptions Prescriptions: New azithromycin [Zithromax] 250 mg tablet See Rx Instructions .ROUTE .COMPLEX Qty: 6 0RF Rx Instructions: For 250 mg dose pack: take 500 mg today (day 1), then 250 mg for 4 days (days 2-5) No Action levetiracetam 1,000 mg tablet 1,000 mg PO Q12H albuterol sulfate 2.5 mg /3 mL (0.083 %) solution for nebulization 2.5 mg inhalation Q4-6H PRN (Reason: shortness of breath or wheezing) Qty: 75 0RF baclofen 10 mg tablet 10 mg PO TID Qty: 90 2RF budesonide-formoterol [Symbicort] 80-4.5 mcg/actuation HFA aerosol inhaler See Rx Instructions .ROUTE .COMPLEX Qty: 10.2 6RF Dose Instruction: TAKE 1 PUFF TWICE A DAY Rx Instructions: TAKE 1 PUFF TWICE A DAY Vraylar 1.5 mg capsule 1.5 mg PO DAILY Qty: 30 3RF ergocalciferol (vitamin D2) [Vitamin D2] 1,250 mcg (50,000 unit) capsule See Rx Instructions .ROUTE .COMPLEX Qty: 14 2RF Dose Instruction: TAKE 1 CAPSULE BY MOUTH ONCE A WEEK Rx Instructions: TAKE 1 CAPSULE BY MOUTH ONCE A WEEK lisinopril 20 mg tablet See Rx Instructions .ROUTE .COMPLEX Qty: 180 2RF Dose Instruction: TAKE 1 TABLET BY MOUTH TWICE RODARTE FOR BLOOD PRESSURE Rx Instructions: TAKE 1 TABLET BY MOUTH TWICE RODARTE FOR BLOOD PRESSURE ropinirole 1 mg tablet 1 mg PO HS Qty: 90 0RF diazepam [Valium] 2 mg tablet 2 mg PO DAILY PRN (Reason: anxiety) Qty: 12 3RF Rx Instructions: +++THIS IS A MONTHLY AMOUNT+++ hydrocodone-acetaminophen 5-325 mg tablet 1 tab PO TID PRN (Reason: pain) Qty: 90 0RF albuterol sulfate [Ventolin HFA] 90 mcg/actuation HFA aerosol inhaler See Rx Instructions .ROUTE .COMPLEX Qty: 18 5RF Dose Instruction: INHALE 4 PUFFS EVERY 4 HOURS FOR 48 HOURS. THEN NEEDED FOR SHORTNESS OF BREATH OR WHEEZING Rx Instructions: INHALE 4 PUFFS EVERY 4 HOURS FOR 48 HOURS. THEN NEEDED FOR SHORTNESS OF BREATH OR WHEEZING Referrals Follow up/Referrals: José Liriano APRN [Primary Care Provider] - See instructions Activity Restrictions/Add. Instructions Additional Instructions/Restrictions: Take the Z-Lionel as prescribed. Continue to use your oxygen at home as prescribed. If you develop any new or worsening symptoms, or if you become concerned for your health for any reason, return to the emergency department for evaluation Clinical Impressions Clinical Impression: COPD exacerbation Print Language Print Language: Kazakh Discharge ED Provider: Ronny Hale General Chief Complaint: Shortness of Breath/Dyspnea Stated Complaint: soa chest congestion Time Seen by Provider: 08/02/24 09:32 Mode of Arrival: Ambulatory Source of Information: Patient Limitations: No Limitations Description of Symptoms (Recalled from ER Triage Doc. by RN): pt presents to ED with c/o cough, chills, generalized feelings of unwell. pt reports that cough has been ongoing for the past week. yellow suputum production. pt reports that she used to wear oxygen but weaned herself off of it because she did not want to get addicted to it. History of Present Illness HPI narrative: 53-year-old female with a past medical history of COPD, hypertension who presents to the emergency department for complaints of worsening shortness of breath and productive cough of yellow sputum over the past 2 weeks. She notes that she is post to wear 2 L of oxygen at all times, however she does not want to get addicted to it and does not wear it. She states that her sputum has been yellow recently and she has had a worsening cough. She reports waxing and waning chills and feeling hot. No documented fevers. She states that her shortness of breath is worsened over the last 2 weeks. She is reporting some mild chest pain describing them as knots in her chest . She denies any leg swelling. Related Data Home Medications ?Medication ?Instructions ?Recorded ?Confirmed levetiracetam 1,000 mg tablet 1,000 mg PO Q12H seizures 09/26/22 05/07/24 Previous Rx's ?Medication ?Instructions ?Recorded albuterol sulfate 2.5 mg/3 mL 2.5 mg (3 mL) inhalation Q4-6H PRN 04/11/24 (0.083 %) solution for nebulization shortness of breath or wheezing #75 mL baclofen 10 mg tablet 10 mg PO TID #90 tabs 04/11/24 budesonide-formoterol HFA 80 See Rx Instructions .Route 04/11/24 mcg-4.5 mcg/actuation aerosol .COMPLEX #10.2 grams inhaler (Symbicort) cariprazine 1.5 mg capsule 1.5 mg PO DAILY #30 caps 04/11/24 (Vraylar) ergocalciferol (vitamin D2) 1,250 See Rx Instructions .Route 04/11/24 mcg (50,000 unit) capsule (Vitamin .COMPLEX #14 caps D2) lisinopril 20 mg tablet See Rx Instructions .Route 04/11/24 .COMPLEX #180 tabs ropinirole 1 mg tablet 1 mg PO HS Restless leg #90 tabs 04/11/24 diazepam 2 mg tablet (Valium) 2 mg PO DAILY PRN anxiety #12 tabs 05/23/24 hydrocodone 5 mg-acetaminophen 325 1 tab PO TID PRN pain #90 tabs 07/16/24 mg tablet albuterol sulfate 90 mcg/actuation See Rx Instructions .Route 07/22/24 aerosol inhaler (Ventolin HFA) .COMPLEX #18 grams azithromycin 250 mg tablet See Rx Instructions PO .COMPLEX #6 08/02/24 (Zithromax) tabs Allergies Allergy/AdvReac Type Severity Reaction Status Date / Time No Known Allergies Allergy Verified 05/07/24 14:52 [facility] Disclaimer: The information contained in this section may have been updated after the patient was seen, as this information can be updated by other users. Medical History Atypical pneumonia COPD (chronic obstructive pulmonary disease) Tobacco abuse counseling Tobacco abuse Encounter for screening for malignant neoplasm of lung in current smoker with 30 pack year history or greater Lung nodule Dyspnea on exertion Smoking greater than 30 pack years COPD (chronic obstructive pulmonary disease) Epileptic seizure Tobacco dependence syndrome Surgical History History of hysterectomy Family History Other Asthma COPD (chronic obstructive pulmonary disease) Hypertension Social History Smoking Status: Current every day smoker tobacco type: cigarettes packs per day: 1 alcohol intake: never substance use type: denies use current occupational status: other Travel in the last 8 weeks: None housing: other caffeine: Yes Have you lived/traveled outside [place] in past 30 days?: No Contact w/someone who lives/traveled outside [place] past 30 days?: No Exposure to someone with infectious disease in past 14 days?: No Do you have a fever (greater than 100.4 F or 38 C)?: No Have you tested positive for COVID-19: No Exposed to someone with COVID-19 in past 14 days?: No Do you have a sore throat?: Yes Do you have a cough?: Yes Do you have any weakness?: No Do you have any diarrhea?: No Are you experiencing any unusual bleeding?: No Do you have any muscle aches/pain?: No Do you have any abdominal pain?: No Are you experiencing loss of taste or smell?: No Other Medical History Have you received the Flu Vaccine for this season: No Have you received the Pneumonia Vaccine: No ROS Obtained: Yes Systems reviewed as appropriate & no additional complaints except as documented Physical Exam General General appearance: alert and in no apparent distress Head Head exam: atraumatic Eye Eye exam: Present normal appearance ENT ENT exam: Present normal external ear exam Neck Neck exam: Present full ROM Chest Chest inspection: Present symmetric chest wall rise Respiratory Respiratory exam: Present respiratory distress (mild increase work with breathing); Absent normal lung sounds bilaterally (diminished breath sounds bilaterally), wheezes or stridor Cardiovascular Cardiovascular exam: Present regular rate and normal rhythm Abdominal Exam Abdominal exam: Present soft; Absent tenderness or guarding Extremities Exam Extremities exam: Present normal inspection; Absent edema Back Exam Back exam: Present normal inspection Neurological Exam Neurological exam: Present alert and oriented X3 Psychiatric Psychiatric exam: Present normal affect Skin Skin exam: Present warm and dry HEART Score HEART Score HEART Score assessment performed?: Yes History (anamnesis): Slightly suspicious ECG: Normal Age: 45-65 years Risk factors: 1-2 risk factors Troponin: </= normal limit HEART Score: 2 Critical Care Critical Care Time Critical Care Time: No Medical Decision Making Payam Inquiry Pt receiving controlled substance: No Vital Signs Vital Signs: 08/02/24 09:14 08/02/24 09:17 08/02/24 09:26 Temperature 97.8 F Temperature Source Oral Pulse Rate 110 H Pulse Rate [Left Radial] 78 Respiratory Rate 16 Blood Pressure 168/92 H Blood Pressure [Right Arm] 168/92 H Blood Pressure Mean [Right Arm] 117 Blood Pressure Source Blood Pressure Position 02 Sat by Pulse Oximetry 86 L 98 99 Oxygen Delivery Method Room Air Nasal Cannula Nasal Cannula Oxygen Flow Rate (LPM) 2 08/02/24 09:30 08/02/24 10:00 08/02/24 10:30 Temperature Temperature Source Pulse Rate 77 81 77 Pulse Rate [Left Radial] Respiratory Rate Blood Pressure 138/81 142/85 H 141/81 H Blood Pressure [Right Arm] Blood Pressure Mean [Right Arm] Blood Pressure Source Blood Pressure Position 02 Sat by Pulse Oximetry 100 98 100 Oxygen Delivery Method Nasal Cannula Nasal Cannula Nasal Cannula Oxygen Flow Rate (LPM) 08/02/24 11:00 08/02/24 11:30 08/02/24 12:12 Temperature 97.8 F Temperature Source Oral Pulse Rate 80 83 77 Pulse Rate [Left Radial] Respiratory Rate 18 Blood Pressure 138/78 130/80 132/87 Blood Pressure [Right Arm] Blood Pressure Mean [Right Arm] Blood Pressure Source Automatic Cuff Blood Pressure Position Sitting 02 Sat by Pulse Oximetry 100 99 Oxygen Delivery Method Nasal Cannula Nasal Cannula Nasal Cannula Oxygen Flow Rate (LPM) 2 Lab Data Labs: Lab Results 08/02/24 09:22: WBC 15.0 H, RBC 3.97 L, Hgb 11.2 L, Hct 35.3 L, MCV 88.8, MCH 28.3, MCHC 31.8, RDW 12.8, Plt Count 497 H, MPV 7.6, Neut % (Auto) 83.2 H, Lymph % (Auto) 12.2, [place] % (Auto) 3.4, Eos % (Auto) 0.8, Baso % (Auto) 0.5, Neut # (Auto) 12.5 H, Lymph # (Auto) 1.8, [place] # (Auto) 0.5, Eos # (Auto) 0.1, Baso # (Auto) 0.1, Total Counted 100, Neutrophils % (Manual) 79 H, Lymphocytes % (Manual) 18, Monocytes % (Manual) 3, Platelet Estimate Slight increase, RBC Morphology Normal, Sodium 138, Potassium 4.1, Chloride 100, Carbon Dioxide 33 H, Anion Gap 9.1, BUN 15, Creatinine 0.80, Estimated Creat Clear 58, Estimated GFR 75, Est GFR ( Amer) 90, Glucose 118 H, Calcium 9.2, Total Bilirubin 0.3, AST 34, ALT 34, Alkaline Phosphatase 112, Troponin I < 0.01, NT-Pro-B Natriuret Pep 427 H, Total Protein 7.2, Albumin 4.2, Globulin 3.0, Albumin/Globulin Ratio 1.4 08/02/24 09:38: VBG pH 7.29 L, VBG pCO2 58.6 H, VBG pO2 40.0, VBG HCO3 27.7, VBG Total CO2 29.5 H, VBG O2 Saturation 70.0, VBG Base Excess 1.1, VBG Lactic Acid 1.9 08/02/24 09:22 08/02/24 09:22 Response Orders (Tests/Meds): ED MEDICATIONS Discontinued Medications Generic Name Dose Route Start Last Admin Trade Name Freq PRN Reason Stop Dose Admin Albuterol/Ipratropium 3 ml 08/02/24 09:38 08/02/24 09:50 Ipratropium/Albuterol 3 Ml Neb IH 08/02/24 09:39 3 ml ONCE ONE Administration Methylprednisolone Sodium Succinate 125 mg 08/02/24 09:38 12 09:50 Methylprednisolone Sod Succ 125mg Vial IV 08/02/24 09:39 125 mg ONCE ONE Administration Sodium Chloride 10 ml 08/02/24 09:27 Sodium Chloride 0.9% 10ml Flush Syringe IV 09/01/24 09:26 NEEDED PRN Maintain IV Site ORDERS Category Date Time Status CXR 2 view (NOT portable) [XR chest 2V] Stat Exams 08/02/24 09:38 Completed BNP [NT Pro Brain Natriuretic Pep.] Stat Lab 08/02/24 09:22 Completed CBC w/Auto Diff [Complete Blood Count Auto Diff] Stat Lab 08/02/24 09:22 Completed CMP [Comprehensive Metabolic Panel] Stat Lab 08/02/24 09:22 Completed Hep C Ab with Reflex to RNA Stat Lab 08/02/24 09:22 Received Troponin I Stat Lab 08/02/24 09:22 Completed VBG [Venous Blood Gas] Stat RT 08/02/24 09:38 Completed MDM Narrative Medical Decision Narrative: Rocio Gonzalez is a 53-year-old female with a past medical history of COPD (supposed to be on 2 L oxygen at baseline but does not wear it), pneumonia who presents to the emergency department for complaints of 2 weeks of shortness of breath and productive cough. Patient states that she is subjectively felt more short of breath at home but denies any leg swelling. She is reporting some mild chest pain as well. She has been taking nebulizer treatments at home but is continue to smoke. On exam, patient is on 2 L of oxygen currently. Mild increased work of breathing but in no significant distress. She is speaking in full sentences. She has mildly diminished breath sounds bilaterally but no wheezing, rales or rhonchi appreciated. Abdomen is soft, nontender nondistended. She has no peripheral edema. Differential diagnosis includes but is not limited to: COPD exacerbation, bacterial pneumonia, atypical pneumonia, viral respiratory illness, CHF, ACS, among others. Patient's workup included CBC with differential, VBG with lactate, CMP, troponin, EKG, BNP, two-view chest x-ray. Patient was treated with a DuoNeb treatment as well as 125 mg of Solu-Medrol for concern for COPD exacerbation. Patient's workup showed leukocytosis of 15 with left shift. Hemoglobin 11.2, hematocrit 35.3, initial troponin of less than 0.01 (will discontinue second troponin), mildly elevated BNP of 427, CMP unremarkable nonactionable, VBG with mildly low pH of 7.29, pCO2 58.6, bicarb 27.7, lactate normal at 1.9 Patient is EKG interpreted by me personally at 0931. No ST elevation or depression. Normal sinus rhythm. QTc 392. NH interval normal at 165 2 view chest x-ray interpreted by me personally prior to official radiology reads. Patient has linear opacities in the right upper lobe concerning for possible infectious process. Radiology report states no concern for pneumonia Given patient's increased sputum production, possible linear opacity on chest x-ray, cough in the setting of COPD, is felt that she would likely benefit from azithromycin. Will send Z-Lionel to her pharmacy. Patient encouraged to continue using her oxygen at home as well as her nebulizer treatments. Return precautions were given. All questions were answered. She remained hemodynamically stable throughout her ED visit and was appropriate for discharge at this time
--- NOTE | 2024-08-02 09:38 | XR_ITS ---
FINAL REPORT CLINICAL HISTORY: SOB, possible pneumonia COMPARISON: 11/08/2022 FINDINGS: Two views of the chest were obtained. Large lung volumes are present consistent with changes of chronic obstructive pulmonary disease. There is a cavitary focus in the right apical region with mild wall thickening and wall calcification, slightly worse than noted on the prior exam of 2022. The heart size and pulmonary vascularity are within normal limits. The mediastinum is normal. No acute pulmonary abnormality is identified. There is no pneumothorax. The bony thorax is intact. IMPRESSION: No active cardiopulmonary disease. Reviewed, Interpreted and Dictated by Lino Felipe III, MD Transcribed by Sonali Benavidez Authenticated and [facility]
[2024-08-02 09:45] LABS: Basophils # 0.1 K/mm3 (0-0.2); Basophils % 0.5 % (0.1-2.0); Eosinophils # 0.1 K/mm3 (0.0-0.4); Eosinophils % 0.8 % (0.1-12.0); Hematocrit 35.3 % (37.0-47.0); Hemoglobin 11.2 g/dL (12.2-16.2); Lymphocytes # 1.8 K/mm3 (0.7-4.5); Lymphocytes % 12.2 % (10-50); Mean Corpuscular HGB Conc 31.8 g/dL (31.8-35.4); Mean Corpuscular Hemoglobin 28.3 pg (27.0-31.2); Mean Corpuscular Volume 88.8 fl (81-99); Mean Platelet Volume 7.6 fl (7.4-10.4); Monocytes # 0.5 K/mm3 (0.1-1.0); Monocytes % 3.4 % (1.7-9.3); Neutrophils # 12.5 K/mm3 (1.8-7.8); Neutrophils % 83.2 % (37.0-80.0); Platelet Count 497 K/mm3 (142-424); Red Blood Count 3.97 M/mm3 (4.20-5.40); Red Cell Distribution Width 12.8 % (11.5-17.5)
[2024-08-02 09:47] LABS: Albumin Level 4.2 g/dl (3.5-5.0); Chloride 100 mmol/L (98-107); Potassium 4.1 mmoL/L (3.5-5.1); Sodium 138 mmol/L (136-145)
[2024-08-02 09:47] LABS: Lactate Venous 1.9 mmol/L (0.4-2.0); VBG Base Excess 1.1 mmol/L (-2.4-2.3); VBG HCO3 27.7 mmol/L (23-30); VBG PH 7.29 mmol/L (7.31-7.41); VBG Total CO2 29.5 mmol/L (23-27)
[2024-08-02 09:50] LABS: VBG PCO2 58.6 mmol/L (35-51)
[2024-08-02 09:50] LABS: Alanine Aminotransferase 34 U/L (12-78); Albumin/Globulin Ratio 1.4 (1.1-1.8); Alkaline Phosphatase 112 U/L (38-126); Anion Gap 9.1 mEq/L (5-15); Aspartate Amino Transferase 34 U/L (14-36); Bilirubin,Total 0.3 mg/dl (0.2-1.3); Blood Urea Nitrogen 15 mg/dl (7-17); Carbon Dioxide 33 mmol/L (22.0-30.0); Creatinine Clearance Estimated 58 mL/min (50-200); Estimated Glomerular Filt Rate 75 ml/min (>60); GFR (African American) 90 ML/MIN (>60); Total Protein,Serum 7.2 g/dl (6.3-8.2)
[2024-08-02] MEDS: IPRATROPIUM/ALBUTEROL 3 ML NEB IH (09:50)
[2024-08-02] MEDS: METHYLPREDNISOLONE SOD SUCC 125MG VIAL 125 MG IV (09:50)
--- NOTE | 2024-08-02 09:50 | PC.NURSE ---
[facility] NOTIFICATION PH 7.29, C02 58.6. DR REYES NOTIFIED.
[2024-08-02 09:51] LABS: Calcium 9.2 mg/dl (8.4-10.2); Glucose 118 mg/dl (74-100); MANUAL DIFFERENTIAL MANUAL DIFFERENTIAL (MANUAL DIFF)
--- NOTE | 2024-08-02 09:53 | PC.NURSE ---
PT RETURNED FROM XR
[2024-08-02 10:00] LABS: NT Pro Brain Natriuretic Pep. 427 pg/mL (0-125)
[2024-08-02 10:03] LABS: Troponin I < 0.01 ng/ml (0.00-0.034)
[2024-08-02 10:51] LABS: Lymphocytes % 18 % (10-50); Monocytes % 3 % (2-9); Neutrophils % 79 % (42-76); RBC Morphology Normal; Total Cells Counted 100
[2024-08-02 10:52] LABS: Platelet Estimate Slight Increase
--- NOTE | 2024-08-02 12:04 | PC.NURSE ---
DR MEADE AT BEDSIDE
[2024-08-02 16:42] LABS: HIV Combo NEGATIVE (Negative)
[2024-08-03 06:13] LABS: HCV Ab Non Reactive (Non Reactive)
== END 2024-08-02 12:18 | disposition home or self-care (01) ==
PROVIDERS: Emergency Provider Student in an Organized Health Care Education/Training Program; PCP Nurse Practitioner Family
DX: J44.1 Chronic obstructive pulmonary disease with (acute) exacerbation (principal); R06.02 Shortness of breath; R05.8 Other specified cough; R07.9 Chest pain, unspecified; R68.83 Chills (without fever); Z72.0 Tobacco use
CPT/HCPCS: 71046; 80053; 82803; 83880; 84484; 85007; 85025; 85027; 86803; 87389; 93005; 96374; 99284; J2919; J7620

== ENCOUNTER 2024-10-18 15:09 | Emergency (ER) | payer OTHER, SELFPAY ==
[2024-10-18] VITALS (7 sets, daily range): BP systolic 94–155; BP diastolic 66–101; PULSE 97–124; RESP 20–38; TEMP 36.5–36.7; O2SAT 73–99; BMI 17.6
--- NOTE | 2024-10-18 15:18 | XR_ITS ---
FINAL REPORT CLINICAL HISTORY: Shortness of breath COMPARISON: 08/02/2024 and 04/07/2021 FINDINGS: There are changes of emphysema. The unusual curvilinear density right lung apex represents a calcified wall of a cavitary lesion or bullous lesion. No acute pulmonary opacity is present. There is no evidence of effusion or pneumothorax. Mediastinum is unremarkable. Heart size is normal. IMPRESSION: No acute findings, stable exam. Reviewed, Interpreted and Dictated by Charley Guillory MD Transcribed by Janna Palomo Authenticated and [facility]
--- NOTE | 2024-10-18 15:19 | ED_ITS ---
Discharge Plan Disposition Patient Disposition: Home, Self-Care Condition: Good Prescriptions Prescriptions: New doxycycline monohydrate 100 mg capsule 100 mg PO BID 7 Days Qty: 14 0RF prednisone 20 mg tablet 20 mg PO BID 5 Days Qty: 10 0RF No Action levetiracetam 1,000 mg tablet 1,000 mg PO Q12H diazepam [Valium] 2 mg tablet 2 mg PO DAILY PRN (Reason: anxiety) Qty: 12 3RF Rx Instructions: +++THIS IS A MONTHLY AMOUNT+++ albuterol sulfate 2.5 mg /3 mL (0.083 %) solution for nebulization 2.5 mg inhalation Q4-6H PRN (Reason: shortness of breath or wheezing) Qty: 75 0RF budesonide-formoterol [Symbicort] 80-4.5 mcg/actuation HFA aerosol inhaler See Rx Instructions .ROUTE .COMPLEX Qty: 10.2 6RF Dose Instruction: TAKE 1 PUFF TWICE A DAY Rx Instructions: TAKE 1 PUFF TWICE A DAY lisinopril 20 mg tablet See Rx Instructions .ROUTE .COMPLEX Qty: 180 2RF Dose Instruction: TAKE 1 TABLET BY MOUTH TWICE RODARTE FOR BLOOD PRESSURE Rx Instructions: TAKE 1 TABLET BY MOUTH TWICE RODARTE FOR BLOOD PRESSURE albuterol sulfate [Ventolin HFA] 90 mcg/actuation HFA aerosol inhaler See Rx Instructions .ROUTE .COMPLEX Qty: 18 5RF Dose Instruction: INHALE 4 PUFFS EVERY 4 HOURS FOR 48 HOURS. THEN NEEDED FOR SHORTNESS OF BREATH OR WHEEZING Rx Instructions: INHALE 4 PUFFS EVERY 4 HOURS FOR 48 HOURS. THEN NEEDED FOR SHORTNESS OF BREATH OR WHEEZING Vraylar 1.5 mg capsule 1.5 mg PO DAILY Qty: 90 3RF ropinirole 1 mg tablet 1 mg PO HS Qty: 90 3RF ergocalciferol (vitamin D2) [Vitamin D2] 1,250 mcg (50,000 unit) capsule See Rx Instructions .ROUTE .COMPLEX Qty: 14 3RF Dose Instruction: TAKE 1 CAPSULE BY MOUTH ONCE A WEEK Rx Instructions: TAKE 1 CAPSULE BY MOUTH ONCE A WEEK baclofen 10 mg tablet 10 mg PO TID Qty: 90 2RF hydrocodone-acetaminophen 5-325 mg tablet 1 tab PO TID PRN (Reason: pain) Qty: 90 0RF Referrals Follow up/Referrals: José Liriano APRN [Primary Care Provider] - See instructions Activity Restrictions/Add. Instructions Additional Instructions/Restrictions: Today your evaluated in the emergency department and diagnosed with a COPD exacerbation. Please stop smoking. Please wear your oxygen as directed at home. Please follow-up with your PCP within 3 days. Please return to the ED for any worsening of condition. Clinical Impressions Clinical Impression: Acute exacerbation of chronic obstructive pulmonary disease (COPD), Hypoxia Instructions Patient Instructions: DI for Chronic Obstructive Pulmonary Disease Print Language Print Language: Egyptian Discharge ED Provider: Trev Montero HPI <Vanita Sánchez APRN - Last Filed: 10/18/24 18:14> General Chief Complaint: Shortness of Breath/Dyspnea Stated Complaint: SOA, back pain Time Seen by Provider: 10/18/24 15:17 History of Present Illness HPI narrative: patient is a 53 year old female PMHx COPD (2L NC prn at home), chronic opiate use, anxiety, current tobacco use, Hx sepsis, ETOH withdraw, Hx of renal failure, seizures who presents to the ED for SOA. Patient states she has been short of breath for weeks however worsening today. Related Data Home Medications ?Medication ?Instructions ?Recorded ?Confirmed levetiracetam 1,000 mg tablet 1,000 mg PO Q12H seizures 09/26/22 10/18/24 Previous Rx's ?Medication ?Instructions ?Recorded albuterol sulfate 2.5 mg/3 mL 2.5 mg (3 mL) inhalation Q4-6H PRN 04/11/24 (0.083 %) solution for nebulization shortness of breath or wheezing #75 mL budesonide-formoterol HFA 80 See Rx Instructions .Route 04/11/24 mcg-4.5 mcg/actuation aerosol .COMPLEX #10.2 grams inhaler (Symbicort) lisinopril 20 mg tablet See Rx Instructions .Route 04/11/24 .COMPLEX #180 tabs albuterol sulfate 90 mcg/actuation See Rx Instructions .Route 07/22/24 aerosol inhaler (Ventolin HFA) .COMPLEX #18 grams diazepam 2 mg tablet (Valium) 2 mg PO DAILY PRN anxiety #12 tabs 08/08/24 cariprazine 1.5 mg capsule 1.5 mg PO DAILY #90 caps 08/23/24 (Vraylar) ropinirole 1 mg tablet 1 mg PO HS Restless leg #90 tabs 08/28/24 ergocalciferol (vitamin D2) 1,250 See Rx Instructions .Route 09/12/24 mcg (50,000 unit) capsule (Vitamin .COMPLEX #14 caps D2) baclofen 10 mg tablet 10 mg PO TID #90 tabs 09/17/24 hydrocodone 5 mg-acetaminophen 325 1 tab PO TID PRN pain #90 tabs 10/01/24 mg tablet doxycycline monohydrate 100 mg 100 mg PO BID 7 days #14 caps 10/18/24 capsule prednisone 20 mg tablet 20 mg PO BID 5 days #10 tabs 10/18/24 Allergies Allergy/AdvReac Type Severity Reaction Status Date / Time No Known Allergies Allergy Verified 08/08/24 13:15 [facility] <Vanita Sánchez APRN - Last Filed: 10/18/24 18:14> [facility] Disclaimer: The information contained in this section may have been updated after the patient was seen, as this information can be updated by other users. Medical History (Updated 10/18/24 @ 17:15 by Vanita Sánchez APRN) Atypical pneumonia COPD (chronic obstructive pulmonary disease) Tobacco abuse counseling Tobacco abuse Encounter for screening for malignant neoplasm of lung in current smoker with 30 pack year history or greater Lung nodule Dyspnea on exertion Smoking greater than 30 pack years COPD (chronic obstructive pulmonary disease) Epileptic seizure Tobacco dependence syndrome Surgical History History of hysterectomy Family History Other Asthma COPD (chronic obstructive pulmonary disease) Hypertension Social History Smoking Status: Current every day smoker tobacco type: cigarettes packs per day: 1 alcohol intake: never substance use type: denies use current occupational status: other Travel in the last 8 weeks: None housing: other caffeine: Yes Have you lived/traveled outside [place] in past 30 days?: No Contact w/someone who lives/traveled outside US past 30 days?: No Exposure to someone with infectious disease in past 14 days?: No Do you have a fever (greater than 100.4 F or 38 C)?: No Have you tested positive for COVID-19: No Exposed to someone with COVID-19 in past 14 days?: No Do you have a sore throat?: No Do you have a cough?: No Do you have any weakness?: No Do you have any diarrhea?: No Are you experiencing any unusual bleeding?: No Do you have any muscle aches/pain?: No Do you have any abdominal pain?: No Are you experiencing loss of taste or smell?: No Other Medical History Have you received the Flu Vaccine for this season: No Have you received the Pneumonia Vaccine: No <Vanita Sánchez APRN - Last Filed: 10/18/24 18:14> ROS Obtained: Yes Systems reviewed as appropriate & no additional complaints except as documented Physical Exam <Vanita Sánchez APRN - Last Filed: 10/18/24 18:14> General General appearance: alert Head Head exam: atraumatic and normocephalic Eye Eye exam: Present normal appearance and PERRL ENT ENT exam: Present normal exam Neck Neck exam: Present normal inspection Chest Chest inspection: Present normal inspection and symmetric chest wall rise; Absent tenderness Respiratory Respiratory exam: Present respiratory distress, accessory muscle use and other (decrease ) Cardiovascular Cardiovascular exam: Present tachycardia Abdominal Exam Abdominal exam: Present soft and normal bowel sounds; Absent tenderness Extremities Exam Extremities exam: Present normal inspection and full ROM Back Exam Back exam: Present normal inspection and full ROM Neurological Exam Neurological exam: Present alert and oriented X3 Psychiatric Psychiatric exam: Present normal affect and normal mood Skin Skin exam: Present warm and dry HEART Score <Vanita Sánchez APRN - Last Filed: 10/18/24 18:14> HEART Score HEART Score assessment performed?: Yes History (anamnesis): Slightly suspicious ECG: Non-specific disturbance Age: 45-65 years Risk factors: 1-2 risk factors Troponin: 1-3x normal limit HEART Score: 4 <Trev Montero MD - Last Filed: 10/18/24 20:01> HEART Score HEART Score: 4 Critical Care <Vanita Sánchez APRN - Last Filed: 10/18/24 18:14> Critical Care Time Critical Care Time: No <Trev Montero MD - Last Filed: 10/18/24 20:01> Critical Care Time Critical Care Time: Yes (resp) Attestation: On 10/18/24, the high probability of a clinically significant, sudden or life threatening deterioration of the following system(s) required my full and direct attention, intervention and personal management. The time I documented below is in addition to time spent performing reported procedures but includes the following listed in this critical care notation. Total Time Total Critical Care Time: 45 Medical Decision Making <Vanita Sánchez APRN - Last Filed: 10/18/24 18:14> Payam Inquiry Pt receiving controlled substance: No Payam was queried for this patient: No Vital Signs Vital Signs: 10/18/24 15:09 10/18/24 15:23 10/18/24 15:30 Temperature 97.7 F Temperature Source Axillary Pulse Rate 115 H 113 H Pulse Rate [Right] 124 H Respiratory Rate 38 H 24 26 H Blood Pressure 155/101 H 140/82 Blood Pressure [Right Arm] 132/82 Blood Pressure Mean [Right Arm] 98 Blood Pressure Source Blood Pressure Source [Right Arm] Automatic Cuff 02 Sat by Pulse Oximetry 73 L 99 99 Oxygen Delivery Method Room Air Nasal Cannula Nasal Cannula Oxygen Flow Rate (LPM) 2 2 10/18/24 16:00 10/18/24 16:30 10/18/24 17:00 Temperature Temperature Source Pulse Rate 103 H 97 H 97 H Pulse Rate [Right] Respiratory Rate 20 21 22 Blood Pressure 119/79 112/77 94/66 L Blood Pressure [Right Arm] Blood Pressure Mean [Right Arm] Blood Pressure Source Blood Pressure Source [Right Arm] 02 Sat by Pulse Oximetry 99 99 96 Oxygen Delivery Method Nasal Cannula Nasal Cannula Nasal Cannula Oxygen Flow Rate (LPM) 2 2 2 10/18/24 17:20 Temperature 98.0 F Temperature Source Oral Pulse Rate 99 H Pulse Rate [Right] Respiratory Rate 24 Blood Pressure 94/66 L Blood Pressure [Right Arm] Blood Pressure Mean [Right Arm] Blood Pressure Source Automatic Cuff Blood Pressure Source [Right Arm] 02 Sat by Pulse Oximetry Oxygen Delivery Method Room Air Oxygen Flow Rate (LPM) Lab Data Labs: Lab Results 10/18/24 15:24: WBC 14.0 H, RBC 4.68, Hgb 12.7, Hct 40.2, MCV 85.9, MCH 27.1, M CHC 31.6 L, RDW 13.4, Plt Count 453 H, MPV 10.0, Neut % (Auto) 72.9, Lymph % (Auto) 13.0, [place] % (Auto) 13.2 H, Eos % (Auto) 0.1, Baso % (Auto) 0.5, Neut # (Auto) 10.2 H, Lymph # (Auto) 1.8, [place] # (Auto) 1.9 H, Eos # (Auto) 0.0, Baso # (Auto) 0.1, Sodium 133 L, Potassium 3.9, Chloride 92 L, Carbon Dioxide 36 H, Anion Gap 8.9, BUN 20 H, Creatinine 0.70, Estimated Creat Clear 66, Estimated GFR 87, Est GFR ( Amer) 106, Glucose 117 H, Calcium 9.2, Total Bilirubin 0.4, AST 49 H, ALT 57, Alkaline Phosphatase 77, Troponin I 0.05 H, NT-Pro-B Natriuret Pep 7930 H, Total Protein 7.4, Albumin 4.7, Globulin 2.7, Albumin/Globulin Ratio 1.7, Plasma/Serum Alcohol < 10 10/18/24 15:30: VBG pH 7.41, VBG pCO2 50.1, VBG pO2 134.2 H, VBG HCO3 31.3 H, V BG Total CO2 32.9 H, VBG O2 Saturation 98.6 H, VBG Base Excess 6.8 H, VBG Lactic Acid 1.8 10/18/24 16:29: SARS-CoV-2 (PCR) Not detected, Influenza A Untype (PCR) Not detected, Influenza Type B (PCR) Not detected 10/18/24 15:24 10/18/24 15:24 Response Orders (Tests/Meds): ORDERS Category Date Time Status CXR --portable [XR chest portable] Stat Exams 10/18/24 15:18 Completed BNP [NT Pro Brain Natriuretic Pep.] Stat Lab 10/18/24 15:24 Completed CBC w/Auto Diff [Complete Blood Count Auto Diff] Stat Lab 10/18/24 15:24 Completed CMP [Comprehensive Metabolic Panel] Stat Lab 10/18/24 15:24 Completed Ethyl Alcohol Stat Lab 10/18/24 15:24 Completed Rapid PCR Covid and Flu A/B Stat Lab 10/18/24 16:29 Completed Trop I [Troponin I] Stat Lab 10/18/24 15:24 Completed Troponin I Q3H Lab 10/18/24 21:30 Ordered Blood Culture Stat Micro 10/18/24 15:34 Received VBG [Venous Blood Gas] Stat RT 10/18/24 15:30 Completed MDM Narrative Medical Decision Narrative: In summary, patient is a 53 year old female PMHx COPD (2L NC prn at home), chronic opiate use, anxiety, current tobacco use, Hx sepsis, ETOH withdraw, Hx of renal failure, seizures who presents to the ED for SOA. Patient states she has been short of breath for weeks however worsening today. Patient states she did smoke cigarettes today which worsened her condition. She states she has not been wearing her home O2. Denies being around any known sick contacts. Upon initial exam, patient is alert, oriented and cooperative. Initial O2 saturation 74% on room air. Physical exam remarkable for tachypnea, tachycardia, decreased lung sounds bilaterally, respiratory distress. Differential diagnosis includes COPD exacerbation, pneumothorax, pneumonia, ACS, dissection, among others Initial workup will be conducted with hematologic labs, imaging. Initial inventions include continuous DuoNeb and Solu-Medrol IV. Initial workup reviewed by me. Hematologic labs remarkable for leukocytosis, WBC 14, stable H&H. CMP remarkable for sodium 133, CO2 36, glucose 117. Troponin <0.05. BNP 7930. I informally interpreted the imaging as no acute findings, no overt fluid findings. See final read. Upon repeat evaluation, patient had an acceptable resolution of symptoms. She was able to maintain a saturation of 96% on 2 L nasal cannula. She is no longer in respiratory distress. Patient is able to couple conversations without difficulty. They were ambulatory in the ED. Able to tolerate p.o. Given this, I feel the patient is safe to be discharged home at this time. I discussed with her that she will need to stop smoking and wear her oxygen at home as directed. We discussed that she will need to follow-up with her PCP Monday. We discussed return precautions to the ED and patient verbalized understanding. I discussed that I sent a prescription for prednisone and doxycycline to the pharmacy. <Trev Montero MD - Last Filed: 10/18/24 20:01> Vital Signs Vital Signs: 10/18/24 15:09 10/18/24 15:23 10/18/24 15:30 Temperature 97.7 F Temperature Source Axillary Pulse Rate 115 H 113 H Pulse Rate [Right] 124 H Respiratory Rate 38 H 24 26 H Blood Pressure 155/101 H 140/82 Blood Pressure [Right Arm] 132/82 Blood Pressure Mean [Right Arm] 98 Blood Pressure Source Blood Pressure Source [Right Arm] Automatic Cuff 02 Sat by Pulse Oximetry 73 L 99 99 Oxygen Delivery Method Room Air Nasal Cannula Nasal Cannula Oxygen Flow Rate (LPM) 2 2 10/18/24 16:00 10/18/24 16:30 10/18/24 17:00 Temperature Temperature Source Pulse Rate 103 H 97 H 97 H Pulse Rate [Right] Respiratory Rate 20 21 22 Blood Pressure 119/79 112/77 94/66 L Blood Pressure [Right Arm] Blood Pressure Mean [Right Arm] Blood Pressure Source Blood Pressure Source [Right Arm] 02 Sat by Pulse Oximetry 99 99 96 Oxygen Delivery Method Nasal Cannula Nasal Cannula Nasal Cannula Oxygen Flow Rate (LPM) 2 2 2 10/18/24 17:20 Temperature 98.0 F Temperature Source Oral Pulse Rate 99 H Pulse Rate [Right] Respiratory Rate 24 Blood Pressure 94/66 L Blood Pressure [Right Arm] Blood Pressure Mean [Right Arm] Blood Pressure Source Automatic Cuff Blood Pressure Source [Right Arm] 02 Sat by Pulse Oximetry Oxygen Delivery Method Room Air Oxygen Flow Rate (LPM) Lab Data Labs: Lab Results 10/18/24 15:24: WBC 14.0 H, RBC 4.68, Hgb 12.7, Hct 40.2, MCV 85.9, MCH 27.1, M CHC 31.6 L, RDW 13.4, Plt Count 453 H, MPV 10.0, Neut % (Auto) 72.9, Lymph % (Auto) 13.0, [place] % (Auto) 13.2 H, Eos % (Auto) 0.1, Baso % (Auto) 0.5, Neut # (Auto) 10.2 H, Lymph # (Auto) 1.8, [place] # (Auto) 1.9 H, Eos # (Auto) 0.0, Baso # (Auto) 0.1, Sodium 133 L, Potassium 3.9, Chloride 92 L, Carbon Dioxide 36 H, Anion Gap 8.9, BUN 20 H, Creatinine 0.70, Estimated Creat Clear 66, Estimated GFR 87, Est GFR ( Amer) 106, Glucose 117 H, Calcium 9.2, Total Bilirubin 0.4, AST 49 H, ALT 57, Alkaline Phosphatase 77, Troponin I 0.05 H, NT-Pro-B Natriuret Pep 7930 H, Total Protein 7.4, Albumin 4.7, Globulin 2.7, Albumin/Globulin Ratio 1.7, Plasma/Serum Alcohol < 10 10/18/24 15:30: VBG pH 7.41, VBG pCO2 50.1, VBG pO2 134.2 H, VBG HCO3 31.3 H, V BG Total CO2 32.9 H, VBG O2 Saturation 98.6 H, VBG Base Excess 6.8 H, VBG Lactic Acid 1.8 10/18/24 16:29: SARS-CoV-2 (PCR) Not detected, Influenza A Untype (PCR) Not detected, Influenza Type B (PCR) Not detected Response Orders (Tests/Meds): ORDERS Category Date Time Status CXR --portable [XR chest portable] Stat Exams 10/18/24 15:18 Completed BNP [NT Pro Brain Natriuretic Pep.] Stat Lab 10/18/24 15:24 Completed CBC w/Auto Diff [Complete Blood Count Auto Diff] Stat Lab 10/18/24 15:24 Completed CMP [Comprehensive Metabolic Panel] Stat Lab 10/18/24 15:24 Completed Ethyl Alcohol Stat Lab 10/18/24 15:24 Completed Rapid PCR Covid and Flu A/B Stat Lab 10/18/24 16:29 Completed Trop I [Troponin I] Stat Lab 10/18/24 15:24 Completed Troponin I Q3H Lab 10/18/24 21:30 Ordered Blood Culture Stat Micro 10/18/24 15:34 Received VBG [Venous Blood Gas] Stat RT 10/18/24 15:30 Completed ECG Data Tracing #1: Attestation: I reviewed this ECG and interpreted as documented below: (Sinus tachycardia 111 bpm. T wave inversions in 2, 3, aVF as well as V3 and V4. No reciprocal elevations. Old ischemic change, but no acute ischemic change. IL 141, QRS 73, QTc 401 with rightward axis) MDM Narrative Medical Decision Narrative: In summary, patient is a 53 year old female PMHx COPD (2L [place] prn at home), chronic opiate use, anxiety, current tobacco use, Hx sepsis, ETOH withdraw, Hx of renal failure, seizures who presents to the ED for SOA. Patient states she has been short of breath for weeks however worsening today. Patient states she did smoke cigarettes today which worsened her condition. She states she has not been wearing her home O2. Denies being around any known sick contacts. Upon initial exam, patient is alert, oriented and cooperative. Initial O2 saturation 74% on room air. Physical exam remarkable for tachypnea, tachycardia, decreased lung sounds bilaterally, respiratory distress. Differential diagnosis includes COPD exacerbation, pneumothorax, pneumonia, ACS, dissection, among others Initial workup will be conducted with hematologic labs, imaging. Initial inventions include continuous DuoNeb and Solu-Medrol IV. Initial workup reviewed by me. Hematologic labs remarkable for leukocytosis, WBC 14, stable H&H. CMP remarkable for sodium 133, CO2 36, glucose 117. Troponin <0.05. BNP 7930. I informally interpreted the imaging as no acute findings, no overt fluid findings. See final read. Upon repeat evaluation, patient had an acceptable resolution of symptoms. She was able to maintain a saturation of 96% on 2 L nasal cannula. She is no longer in respiratory distress. Patient is able to couple conversations without difficulty. They were ambulatory in the ED. Able to tolerate p.o. Given this, I feel the patient is safe to be discharged home at this time. I discussed with her that she will need to stop smoking and wear her oxygen at home as directed. We discussed that she will need to follow-up with her PCP Monday. We discussed return precautions to the ED and patient verbalized understanding. I discussed that I sent a prescription for prednisone and doxycycline to the pharmacy. I was consulted by the AISHA, and we discussed the complexity of the problems being addressed. I approved the treatment and management plan for this patient's care in the Emergency Department, thus performing a substantive portion of the medical decision making. Trev Montero MD
--- NOTE | 2024-10-18 15:19 | PC.NURSE ---
1511 Pt arrived to triage intake. Pt noted to have accessory muscle use, wheezing and appeared to have cyanosis to lips. O2 sat noted to be 73% patient taken back to room 2. Gabriela Smith RN to bedside to take over care.
--- NOTE | 2024-10-18 15:26 | PC.NURSE ---
I notified respiratory that there is a green top in lab for a VBG.
--- NOTE | 2024-10-18 15:32 | ECG_ITS ---
APPROVED REPORT Exam: Resting ECG HR:111 bpm ECG Measurements Heart Rate 111 AXES ME 141 P 85 QRSd 73 QRS 103 QT 336 T -63 QTc 401 Conclusion SINUS TACHYCARDIA RIGHT AXIS DEVIATION [QRS AXIS > 100] ST DEVIATION AND MODERATE T-WAVE ABNORMALITY, CONSIDER ANTEROLATERAL ISCHEMIA [-0.1+ mV T-WAVE IN V3-V6] ST DEVIATION AND MODERATE T-WAVE ABNORMALITY, CONSIDER INFERIOR ISCHEMIA [-0.1+ mV T-WAVE IN II/aVF] ABNORMAL ECG Electronically signed by : HARRY CHAN, 10/20/2024 08:19:28
[2024-10-18 15:35] LABS: Basophils # 0.1 K/mm3 (0-0.2); Basophils % 0.5 % (0.1-2.0); Eosinophils % 0.1 % (0.1-12.0); Hematocrit 40.2 % (37.0-47.0); Hemoglobin 12.7 g/dL (12.2-16.2); Lymphocytes # 1.8 K/mm3 (0.7-4.5); Mean Corpuscular HGB Conc 31.6 g/dL (31.8-35.4); Mean Corpuscular Hemoglobin 27.1 pg (27.0-31.2); Mean Corpuscular Volume 85.9 fl (81-99); Monocytes # 1.9 K/mm3 (0.1-1.0); Monocytes % 13.2 % (1.7-9.3); Neutrophils # 10.2 K/mm3 (1.8-7.8); Neutrophils % 72.9 % (37.0-80.0); Platelet Count 453 K/mm3 (142-424); Red Blood Count 4.68 M/mm3 (4.20-5.40); Red Cell Distribution Width 13.4 % (11.5-17.5)
[2024-10-18 15:37] LABS: Lactate Venous 1.8 mmol/L (0.4-2.0); VBG Base Excess 6.8 mmol/L (-2.4-2.3); VBG HCO3 31.3 mmol/L (23-30); VBG Oxygen Saturation 98.6 % (50-70); VBG PH 7.41 mmol/L (7.31-7.41); VBG PO2 134.2 mmol/L (28-40); VBG Total CO2 32.9 mmol/L (23-27)
[2024-10-18 15:41] LABS: VBG PCO2 50.1 mmol/L (35-51)
[2024-10-18 15:58] LABS: Alanine Aminotransferase 57 U/L (12-78); Albumin Level 4.7 g/dl (3.5-5.0); Albumin/Globulin Ratio 1.7 (1.1-1.8); Alkaline Phosphatase 77 U/L (38-126); Anion Gap 8.9 mEq/L (5-15); Aspartate Amino Transferase 49 U/L (14-36); Bilirubin,Total 0.4 mg/dl (0.2-1.3); Blood Urea Nitrogen 20 mg/dl (7-17); Calcium 9.2 mg/dl (8.4-10.2); Carbon Dioxide 36 mmol/L (22.0-30.0); Chloride 92 mmol/L (98-107); Creatinine Clearance Estimated 66 mL/min (50-200); Estimated Glomerular Filt Rate 87 ml/min (>60); GFR (African American) 106 ML/MIN (>60); Globulin 2.7 g/dL (1.3-3.2); Glucose 117 mg/dl (74-100); Potassium 3.9 mmoL/L (3.5-5.1); Sodium 133 mmol/L (136-145); Total Protein,Serum 7.4 g/dl (6.3-8.2)
[2024-10-18 16:10] LABS: NT Pro Brain Natriuretic Pep. 7930 pg/mL (0-125); Troponin I 0.05 ng/ml (0.00-0.034)
[2024-10-18 16:31] LABS: Ethyl Alcohol < 10 mg/dl (0-10)
[2024-10-18 16:36] LABS: Coronavirus 19, PCR Not Detected (NotDetected); Influenza A, PCR Not Detected (NotDetected); Influenza B, PCR Not Detected (NotDetected)
== END 2024-10-18 17:40 | disposition home or self-care (01) ==
PROVIDERS: Nurse Practitioner; Emergency Provider Emergency Medicine; PCP Nurse Practitioner Family
DX: R09.02 Hypoxemia (principal); J44.1 Chronic obstructive pulmonary disease with (acute) exacerbation; F17.210 Nicotine dependence, cigarettes, uncomplicated; R06.02 Shortness of breath
CPT/HCPCS: 71045; 80053; 80320; 82803; 83880; 84484; 85025; 87040; 87636; 93005; 99291; G0480

== ENCOUNTER 2024-11-19 14:52 | Emergency (ER) | payer OTHER, SELFPAY ==
[2024-11-19] VITALS (32 sets, daily range): BP systolic 80–189; BP diastolic 41–162; PULSE 59–107; RESP 16–35; TEMP 35.7–37.3; O2SAT 30–100; BMI 16.9
--- NOTE | 2024-11-19 14:56 | ECG_ITS ---
APPROVED REPORT Exam: Resting ECG HR:85 bpm ECG Measurements Heart Rate 85 AXES MI 147 P 95 QRSd 80 QRS 106 QT 316 T -5 QTc 359 Conclusion SINUS RHYTHM WITH FREQUENT ECTOPIC PREMATURE COMPLEXES PATTERN CONSISTENT WITH PULMONARY DISEASE POSSIBLE RIGHT VENTRICULAR HYPERTROPHY [SOME/ALL OF: PROMINENT R IN V1, LATE TRANSITION, RAD, REJI, SSS] NONSPECIFIC T-WAVE ABNORMALITY ABNORMAL ECG UNCONFIRMED REPORT Electronically signed by : NEWTON OVIEDO, 11/21/2024 05:17:46
--- NOTE | 2024-11-19 14:57 | XR_ITS ---
FINAL REPORT CLINICAL HISTORY: Dyspnea, hypoxia COMPARISON: 10/18/2024 FINDINGS: CHEST 2 VIEWS: There is new consolidation in the right lung base consistent with pneumonia. A moderate size right pleural effusion is present. The left lung is clear. There is a chronic cavitary lesion in the right apex with a calcified rim, which is unchanged in appearance since the prior exam. Mediastinum is unremarkable. Heart size is normal. IMPRESSION: New consolidation in the right lung base consistent with pneumonia, with a moderate-sized right pleural effusion. Reviewed, Interpreted and Dictated by Charley Guillory MD Transcribed by Sonali Benavidez Authenticated and [facility]
--- NOTE | 2024-11-19 14:57 | ED_ITS ---
Discharge Plan Disposition Patient Disposition: Xfer Short-Term Hosp Condition: Critical Prescriptions Prescriptions: No Action levetiracetam 1,000 mg tablet 1,000 mg PO Q12H albuterol sulfate 2.5 mg /3 mL (0.083 %) solution for nebulization 2.5 mg inhalation Q4-6H PRN (Reason: shortness of breath or wheezing) Qty: 75 0RF Vraylar 1.5 mg capsule 1.5 mg PO DAILY Qty: 90 3RF ropinirole 1 mg tablet 1 mg PO HS Qty: 90 3RF ergocalciferol (vitamin D2) [Vitamin D2] 1,250 mcg (50,000 unit) capsule See Rx Instructions .ROUTE .COMPLEX Qty: 14 3RF Dose Instruction: TAKE 1 CAPSULE BY MOUTH ONCE A WEEK Rx Instructions: TAKE 1 CAPSULE BY MOUTH ONCE A WEEK baclofen 10 mg tablet 10 mg PO TID Qty: 90 2RF lisinopril 20 mg tablet See Rx Instructions .ROUTE .COMPLEX Qty: 180 2RF Dose Instruction: TAKE 1 TABLET BY MOUTH TWICE RODARTE FOR BLOOD PRESSURE Rx Instructions: TAKE 1 TABLET BY MOUTH TWICE RODARTE FOR BLOOD PRESSURE diazepam [Valium] 2 mg tablet 2 mg PO DAILY PRN (Reason: anxiety) Qty: 12 3RF Rx Instructions: +++THIS IS A MONTHLY AMOUNT+++ hydrocodone-acetaminophen 5-325 mg tablet 1 tab PO TID PRN (Reason: pain) Qty: 90 0RF albuterol sulfate [Ventolin HFA] 90 mcg/actuation HFA aerosol inhaler See Rx Instructions .ROUTE .COMPLEX Qty: 18 5RF Dose Instruction: INHALE 4 PUFFS EVERY 4 HOURS FOR 48 HOURS. THEN NEEDED FOR SHORTNESS OF BREATH OR WHEEZING Rx Instructions: INHALE 4 PUFFS EVERY 4 HOURS FOR 48 HOURS. THEN NEEDED FOR SHORTNESS OF BREATH OR WHEEZING budesonide-formoterol [Symbicort] 80-4.5 mcg/actuation HFA aerosol inhaler See Rx Instructions .ROUTE .COMPLEX Qty: 10.2 6RF Dose Instruction: TAKE 1 PUFF TWICE A DAY Rx Instructions: TAKE 1 PUFF TWICE A DAY doxycycline monohydrate 100 mg capsule 100 mg PO BID 7 Days Qty: 14 0RF prednisone 20 mg tablet 20 mg PO BID 5 Days Qty: 10 0RF Referrals Follow up/Referrals: Provider,Referral, MD [Primary Care Provider] - See instructions Clinical Impressions Clinical Impression: Severe sepsis with septic shock, Hyponatremia, Acute on chronic respiratory failure with hypoxia and hypercapnia, Hyperkalemia, Acute kidney injury (nontraumatic), Transaminitis, Elevated brain natriuretic peptide (BNP) level, Elevated troponin, Multiple pulmonary emboli Stand Alone Forms Stand Alone Forms: Transfer Record - ED Print Language Print Language: Emirati Discharge ED Provider: Aly Powell HPI <REBEKA Aguilar - Last Filed: 11/19/24 19:33> General Chief Complaint: Shortness of Breath/Dyspnea Stated Complaint: Chest Pain Time Seen by Provider: 11/19/24 14:55 History of Present Illness HPI narrative: Patient presents for evaluation of shortness of breath and chest pain. Patient gives a history of 2 days of increasing shortness of breath. Patient at baseline is supposed to wear oxygen but reports that she is noncompliant because she does not want to get addicted. Patient reports that her chest pain started yesterday and is continued. It is substernal does not radiate. Patient denies any fever chills hemoptysis hematochezia melena nausea vomit diarrhea Related Data Home Medications ?Medication ?Instructions ?Recorded ?Confirmed levetiracetam 1,000 mg tablet 1,000 mg PO Q12H seizures 09/26/22 10/18/24 Previous Rx's ?Medication ?Instructions ?Recorded albuterol sulfate 2.5 mg/3 mL 2.5 mg (3 mL) inhalation Q4-6H PRN 04/11/24 (0.083 %) solution for nebulization shortness of breath or wheezing #75 mL cariprazine 1.5 mg capsule 1.5 mg PO DAILY #90 caps 08/23/24 (Vraylar) ropinirole 1 mg tablet 1 mg PO HS Restless leg #90 tabs 08/28/24 ergocalciferol (vitamin D2) 1,250 See Rx Instructions .Route 09/12/24 mcg (50,000 unit) capsule (Vitamin .COMPLEX #14 caps D2) baclofen 10 mg tablet 10 mg PO TID #90 tabs 09/17/24 doxycycline monohydrate 100 mg 100 mg PO BID 7 days #14 caps 10/18/24 capsule prednisone 20 mg tablet 20 mg PO BID 5 days #10 tabs 10/18/24 lisinopril 20 mg tablet See Rx Instructions .Route 10/31/24 .COMPLEX #180 tabs diazepam 2 mg tablet (Valium) 2 mg PO DAILY PRN anxiety #12 tabs 11/01/24 albuterol sulfate 90 mcg/actuation See Rx Instructions .Route 11/12/24 aerosol inhaler (Ventolin HFA) .COMPLEX #18 grams budesonide-formoterol HFA 80 See Rx Instructions .Route 11/12/24 mcg-4.5 mcg/actuation aerosol .COMPLEX #10.2 grams inhaler (Symbicort) hydrocodone 5 mg-acetaminophen 325 1 tab PO TID PRN pain #90 tabs 11/12/24 mg tablet Allergies Allergy/AdvReac Type Severity Reaction Status Date / Time No Known Allergies Allergy Verified 08/08/24 13:15 [facility] <REBEKA Aguilar - Last Filed: 11/19/24 19:33> [facility] Disclaimer: The information contained in this section may have been updated after the patient was seen, as this information can be updated by other users. Medical History (Updated 11/19/24 @ 18:53 by REBEKA Aguilar) Atypical pneumonia COPD (chronic obstructive pulmonary disease) Tobacco abuse counseling Tobacco abuse Encounter for screening for malignant neoplasm of lung in current smoker with 30 pack year history or greater Lung nodule Dyspnea on exertion Smoking greater than 30 pack years COPD (chronic obstructive pulmonary disease) Epileptic seizure Tobacco dependence syndrome Surgical History History of hysterectomy Family History Other Asthma COPD (chronic obstructive pulmonary disease) Hypertension Social History Smoking Status: Current every day smoker tobacco type: cigarettes packs per day: 1 alcohol intake: never substance use type: denies use current occupational status: other Travel in the last 8 weeks: None housing: other caffeine: Yes Have you lived/traveled outside US in past 30 days?: No Contact w/someone who lives/traveled outside US past 30 days?: No Exposure to someone with infectious disease in past 14 days?: No Do you have a fever (greater than 100.4 F or 38 C)?: No Have you tested positive for COVID-19: No Exposed to someone with COVID-19 in past 14 days?: No Do you have a sore throat?: No Do you have a cough?: No Do you have any weakness?: No Do you have any diarrhea?: No Are you experiencing any unusual bleeding?: No Do you have any muscle aches/pain?: No Do you have any abdominal pain?: No Are you experiencing loss of taste or smell?: No Other Medical History Have you received the Flu Vaccine for this season: No Have you received the Pneumonia Vaccine: No <REBEKA Aguilar - Last Filed: 11/19/24 19:33> ROS Obtained: Yes Systems reviewed as appropriate & no additional complaints except as documented Physical Exam <REBEKA Aguilar - Last Filed: 11/19/24 19:33> General General appearance: alert and in distress (In respiratory distress) Respiratory Respiratory exam: Present respiratory distress, wheezes and accessory muscle use; Absent normal lung sounds bilaterally Cardiovascular Cardiovascular exam: Present tachycardia Neurological Exam Neurological exam: Present alert and oriented X3 HEART Score <REBEKA Aguilar - Last Filed: 11/19/24 19:33> HEART Score HEART Score assessment performed?: Yes History (anamnesis): Slightly suspicious ECG: Non-specific disturbance Age: 45-65 years Risk factors: 3 or more risk factors Troponin: > 3x normal limit HEART Score: 6 <Aly Powell MD - Last Filed: 11/20/24 02:08> HEART Score HEART Score: 6 <Trev Montero MD - Last Filed: 11/20/24 07:57> HEART Score HEART Score: 6 <Kevin Prescott MD - Last Filed: 11/20/24 17:01> HEART Score HEART Score: 6 Procedures <Kevin Prescott MD - Last Filed: 11/20/24 17:01> Intubation Mallampati Score:: Class II Time out performed: Yes sedative: Etomidate paralytic: Rocuronium Laryngoscope: Violetta ET Tube Size: 7.5 ET Tube Uncuffed: No Tube Secured Depth (cm): 23 Tube Secured Location: lips Tube Placement Confirmation: visualized tube passing through cords Patient Tolerated Procedure: well Arterial Line Time Out Performed: Yes Size (Gauge): 18 Technique Used: guide wire technique Post-Procedure: line sutured into place Patient Tolerated Procedure: well Complications: none Site: right Critical Care <REBEKA Aguilar - Last Filed: 11/19/24 19:33> Critical Care Time Critical Care Time: Yes Attestation: On 11/19/24, the high probability of a clinically significant, sudden or life threatening deterioration of the following system(s) required my full and direct attention, intervention and personal management. The time I documented below is in addition to time spent performing reported procedures but includes the following listed in this critical care notation. Total Time Total Critical Care Time: 80 Medical Decision Making <REBEKA Aguilar - Last Filed: 11/19/24 19:33> Medical Records Medical records reviewed: Yes I reviewed the patient's medical records. Payam Inquiry Pt receiving controlled substance: No Vital Signs Vital Signs: 11/19/24 15:02 11/19/24 15:10 11/19/24 15:10 Temperature 96.2 F L Temperature Source Axillary Pulse Rate 107 H 102 H Pulse Rate [Right] 76 Respiratory Rate 35 H Blood Pressure Blood Pressure [Right Arm] 153/129 H Blood Pressure Mean Blood Pressure Mean [Right Arm] 137 Blood Pressure Source [Right Arm] Automatic Cuff Blood Pressure Position [Right Arm] Supine 02 Sat by Pulse Oximetry 30 L Oxygen Delivery Method Room Air Fraction of Inspired Oxygen 11/19/24 15:30 11/19/24 15:55 11/19/24 16:00 Temperature 98.2 F Temperature Source Pulse Rate 96 H Pulse Rate [Right] Respiratory Rate 19 Blood Pressure 83/41 L Blood Pressure [Right Arm] Blood Pressure Mean Blood Pressure Mean [Right Arm] Blood Pressure Source [Right Arm] Blood Pressure Position [Right Arm] 02 Sat by Pulse Oximetry 83 L Oxygen Delivery Method Fraction of Inspired Oxygen 25 40 11/19/24 16:30 11/19/24 17:00 11/19/24 17:25 Temperature 99.1 F Temperature Source Pulse Rate 91 H Pulse Rate [Right] Respiratory Rate 29 H 17 Blood Pressure 80/51 L 101/68 L 189/162 H Blood Pressure [Right Arm] Blood Pressure Mean 83 166 Blood Pressure Mean [Right Arm] Blood Pressure Source [Right Arm] Blood Pressure Position [Right Arm] 02 Sat by Pulse Oximetry 67 L Oxygen Delivery Method Fraction of Inspired Oxygen 11/19/24 18:00 11/19/24 18:00 11/19/24 18:30 Temperature Temperature Source Pulse Rate 59 L 94 H Pulse Rate [Right] Respiratory Rate 18 Blood Pressure 105/74 L 112/79 Blood Pressure [Right Arm] Blood Pressure Mean 82 88 Blood Pressure Mean [Right Arm] Blood Pressure Source [Right Arm] Blood Pressure Position [Right Arm] 02 Sat by Pulse Oximetry Oxygen Delivery Method Fraction of Inspired Oxygen 50 11/19/24 18:40 11/19/24 19:00 11/19/24 19:30 Temperature 98.6 F 98.6 F Temperature Source Pulse Rate 90 95 H Pulse Rate [Right] Respiratory Rate 18 Blood Pressure 116/77 111/54 L Blood Pressure [Right Arm] Blood Pressure Mean 91 89 Blood Pressure Mean [Right Arm] Blood Pressure Source [Right Arm] Blood Pressure Position [Right Arm] 02 Sat by Pulse Oximetry 98 98 Oxygen Delivery Method Mechanical Ventilation Mechanical Ventilation Fraction of Inspired Oxygen 100 11/19/24 20:00 11/19/24 20:30 11/19/24 20:36 Temperature 98.6 F 98.6 F Temperature Source Pulse Rate Pulse Rate [Right] Respiratory Rate 16 16 18 Blood Pressure 105/71 L 118/72 Blood Pressure [Right Arm] Blood Pressure Mean 80 83 Blood Pressure Mean [Right Arm] Blood Pressure Source [Right Arm] Blood Pressure Position [Right Arm] 02 Sat by Pulse Oximetry 98 98 Oxygen Delivery Method Mechanical Ventilation Mechanical Ventilation Fraction of Inspired Oxygen 60 11/19/24 20:45 11/19/24 21:00 11/19/24 21:06 Temperature 98.8 F 98.8 F 98.8 F Temperature Source Pulse Rate 85 Pulse Rate [Right] Respiratory Rate 18 17 18 Blood Pressure 99/73 L 95/65 L Blood Pressure [Right Arm] Blood Pressure Mean Blood Pressure Mean [Right Arm] Blood Pressure Source [Right Arm] Blood Pressure Position [Right Arm] 02 Sat by Pulse Oximetry 94 L Oxygen Delivery Method Fraction of Inspired Oxygen 11/19/24 21:20 11/19/24 21:30 11/19/24 21:50 Temperature 99.0 F 99.0 F 99.0 F Temperature Source Pulse Rate Pulse Rate [Right] Respiratory Rate 18 18 20 Blood Pressure 91/55 L 112/69 121/74 Blood Pressure [Right Arm] Blood Pressure Mean Blood Pressure Mean [Right Arm] Blood Pressure Source [Right Arm] Blood Pressure Position [Right Arm] 02 Sat by Pulse Oximetry 98 100 Oxygen Delivery Method Fraction of Inspired Oxygen 11/19/24 21:52 11/19/24 22:00 11/19/24 22:15 Temperature 99.0 F 99.1 F Temperature Source Pulse Rate 66 81 Pulse Rate [Right] Respiratory Rate 18 18 18 Blood Pressure 103/73 L 102/69 L Blood Pressure [Right Arm] Blood Pressure Mean Blood Pressure Mean [Right Arm] Blood Pressure Source [Right Arm] Blood Pressure Position [Right Arm] 02 Sat by Pulse Oximetry Oxygen Delivery Method Fraction of Inspired Oxygen 60 11/19/24 22:30 11/19/24 22:45 11/19/24 23:00 Temperature 99.0 F 99.1 F 99.0 F Temperature Source Pulse Rate 61 61 Pulse Rate [Right] Respiratory Rate 18 18 17 Blood Pressure 111/78 95/72 L 114/78 Blood Pressure [Right Arm] Blood Pressure Mean Blood Pressure Mean [Right Arm] Blood Pressure Source [Right Arm] Blood Pressure Position [Right Arm] 02 Sat by Pulse Oximetry Oxygen Delivery Method Fraction of Inspired Oxygen 11/19/24 23:15 11/19/24 23:30 11/19/24 23:34 Temperature 99.1 F 98.8 F Temperature Source Pulse Rate Pulse Rate [Right] Respiratory Rate 18 18 Blood Pressure 128/81 116/78 Blood Pressure [Right Arm] Blood Pressure Mean Blood Pressure Mean [Right Arm] Blood Pressure Source [Right Arm] Blood Pressure Position [Right Arm] 02 Sat by Pulse Oximetry Oxygen Delivery Method Fraction of Inspired Oxygen 60 11/19/24 23:45 11/20/24 00:00 11/20/24 00:15 Temperature 99.0 F 98.8 F 98.8 F Temperature Source Pulse Rate 80 Pulse Rate [Right] Respiratory Rate 19 18 18 Blood Pressure 138/87 122/85 104/74 L Blood Pressure [Right Arm] Blood Pressure Mean Blood Pressure Mean [Right Arm] Blood Pressure Source [Right Arm] Blood Pressure Position [Right Arm] 02 Sat by Pulse Oximetry Oxygen Delivery Method Fraction of Inspired Oxygen 11/20/24 00:30 11/20/24 00:45 11/20/24 01:00 Temperature 98.6 F 98.6 F 98.8 F Temperature Source Pulse Rate 80 Pulse Rate [Right] Respiratory Rate 18 18 18 Blood Pressure 107/70 L 115/81 100/74 L Blood Pressure [Right Arm] Blood Pressure Mean Blood Pressure Mean [Right Arm] Blood Pressure Source [Right Arm] Blood Pressure Position [Right Arm] 02 Sat by Pulse Oximetry 99 99 Oxygen Delivery Method Fraction of Inspired Oxygen 11/20/24 01:56 Temperature 98.8 F Temperature Source Pulse Rate 81 Pulse Rate [Right] Respiratory Rate 18 Blood Pressure 106/67 L Blood Pressure [Right Arm] Blood Pressure Mean Blood Pressure Mean [Right Arm] Blood Pressure Source [Right Arm] Blood Pressure Position [Right Arm] 02 Sat by Pulse Oximetry Oxygen Delivery Method Room Air Fraction of Inspired Oxygen Lab Data Lab results reviewed: Yes I reviewed the patient's lab results. Labs: Lab Results 11/19/24 14:59: VBG pH 7.23 L, VBG pCO2 62.0 H, VBG pO2 42.2 H, VBG HCO3 25.1, VBG Total CO2 27.0, VBG O2 Saturation 62.3, VBG Base Excess -2.5 L, VBG Lactic Acid 6.3 H 11/19/24 15:00: WBC 20.5 H*, RBC 3.73 L, Hgb 10.1 L, Hct 32.4 L, MCV 86.9, MCH 27.1, MCHC 31.2 L, RDW 14.8, Plt Count 309, MPV 10.1, Neut % (Auto) 75.4, Lymph % (Auto) 10.6, Polk % (Auto) 13.1 H, Eos % (Auto) 0.0 L, Baso % (Auto) 0.1, Neut # (Auto) 15.5 H, Lymph # (Auto) 2.2, Polk # (Auto) 2.7 H, Eos # (Auto) 0.0, Baso # (Auto) 0.0, Total Counted 100, Neutrophils % (Manual) 81 H, Lymphocytes % (Manual) 14, Monocytes % (Manual) 5, Platelet Estimate Normal, RBC Morphology Normal, PT 14.2 H, INR 1.30 H, APTT 27.9 L, D-Dimer 4.13 H, Sodium 132 L, P otassium 6.0 H, Chloride 92 L, Carbon Dioxide 27, Anion Gap 19.0 H, BUN 31 H, C reatinine 1.80 H, Estimated Creat Clear 25, Estimated GFR 29 L, Est GFR ( Amer) 35 L, Glucose 100, Calcium 8.7, Magnesium 1.8, Total Bilirubin 1.3, AST 4301 H*, ALT 2066 H*, Alkaline Phosphatase 57, Troponin I 0.44 H, C-Reactive Protein 135.2 H, NT-Pro-B Natriuret Pep 71438 H, Total Protein 6.4, Albumin 3.6, Globulin 2.8, Albumin/Globulin Ratio 1.3, Procalcitonin 2.13 H, Plasma/Serum Alcohol < 10, Chlamy pneumoniae PCR Not detected, Adenovirus (PCR) Not detected, B. pertussis DNA (PCR) Not detected, Coronavirus OC43 (PCR) Not detected, Coronavirus HKU1 (PCR) Not detected, Coronavirus 229E (PCR) Not detected, SARS-CoV-2 (PCR) Not detected, Coronavirus NL63 (PCR) Not detected, Human Metapneumovir PCR Not detected, Influenza A (H1) PCR Not detected, Influ A (H1N1/09) PCR Not detected, Influenza A (H3) PCR Not detected, Influenza Type A (PCR) Not detected, Influenza Type B (PCR) Not detected, M. pneumoniae (PCR) Not detected, Parainfluenza 1 (PCR) Not detected, Parainfluenza 2 (PCR) Not detected, Parainfluenza 3 (PCR) Not detected, Parainfluenza 4 (PCR) Not detected, RSV (PCR) Not detected, Entero/Rhino (PCR) Not detected 11/19/24 15:56: Urine Color Yellow, Urine Appearance Clear, Urine pH 5.5, Ur Specific Atkinson 1.025, Urine Protein Trace, Urine Glucose (UA) Negative, Urine Ketones Negative, Urine Blood Negative, Urine Nitrate Negative, Urine Bilirubin Negative, Urine Urobilinogen 0.2, Ur Leukocyte Esterase Negative, Urine RBC None, Urine WBC 3-5, Ur Squamous Epith Cells 3-5, Urine Bacteria Trace, Urine Mucus 2+, Urine Opiates Screen Positive H, Urine Methadone Screen Negative, Ur Barbituates Screen Negative, Ur Phencyclidine Scrn Negative, Ur Amphetamines Screen Negative, U Benzodiazepines Scrn Positive H, Urine Cocaine Screen Negative, U Marijuana (THC) Screen Positive H 11/19/24 17:58: Troponin I 0.63 H 11/19/24 18:13: Specimen Source Right radial, O2 % 50, ABG pH 7.19 L*, ABG pCO2 46.7 H, ABG pO2 61.2 L, ABG HCO3 17.6 L, ABG Total CO2 19.0 L, ABG O2 Saturation 82 L*, ABG Base Excess -10.5 L, Tong Test Art line, Vent Rate 18, Tidal Volume 400, PEEP 5 11/19/24 19:33: Lactate 6.3 H 11/19/24 20:03: Total Creatine Kinase 74 11/19/24 20:07: Specimen Source Art line, O2 % 100, ABG pH 7.28 L, ABG pCO2 46.1 H, ABG pO2 315.1 H, ABG HCO3 21.1 L, ABG Total CO2 22.5 L, ABG O2 Saturation 100, ABG Base Excess -5.7 L, Tong Test Non applicable, Vent Rate 18, Tidal Volume 400, PEEP 5 11/19/24 21:16: Troponin I 0.78 H 11/19/24 21:46: Lactate 4.1 H 11/19/24 15:00 11/19/24 15:00 Response Orders (Tests/Meds): ED MEDICATIONS Discontinued Medications Generic Name Dose Route Start Last Admin Trade Name Freq PRN Reason Stop Dose Admin Albuterol/Ipratropium 9 ml 11/19/24 14:57 11/19/24 15:25 Ipratropium/Albuterol 3 Ml Neb IH 11/19/24 14:58 9 ml ONCE ONE Administration Aspirin 325 mg 11/19/24 15:57 11/19/24 18:31 Aspirin 325mg Tablet PO 11/19/24 15:58 Not Given ONCE ONE Clopidogrel Bisulfate 300 mg 11/19/24 15:57 11/19/24 18:31 Clopidogrel 300mg Tablet PO 11/19/24 15:58 Not Given ONCE ONE Dextrose 50 ml 11/19/24 15:59 11/19/24 18:31 Dextrose 50% 50ml Syringe (Crash Cart) IVP 11/19/24 16:00 Not Given ONCE ONE Etomidate 10 mg 11/19/24 18:15 11/19/24 17:19 Etomidate 40mg/20ml Vial IV 11/19/24 18:16 10 mg ONCE ONE Administration Heparin Sodium (Porcine) 3,600 unit 11/19/24 18:45 11/19/24 18:57 Heparin Sodium 5,000 Unit/Ml Vial IV 11/19/24 18:46 3,600 unit ONCE ONE Administration Magnesium Sulfate 2 gm in 50 mls @ 50 mls/hr 11/19/24 14:57 11/19/24 15:11 Magnesium Sulfate 2gm/50ml Premix IV 11/19/24 15:56 50 mls/hr ONCE ONE Administration Ceftriaxone Sodium 1 gm/ 50 mls @ 100 mls/hr 11/19/24 15:30 11/19/24 15:36 Sodium Chloride IV 11/29/24 15:29 100 mls/hr Q24H SUZY Administration Azithromycin 500 mg/ Sodium 250 mls @ 250 mls/hr 11/19/24 15:30 11/19/24 15:36 Chloride IV 11/29/24 15:29 250 mls/hr Q24H SUZY Administration Sodium Chloride 1,640 mls @ 820 mls/hr 11/19/24 15:21 11/19/24 15:32 Sod Chlor 0.9% 1000ml Bag 30 ml/kg infuse over 2 hr (1640 ml) 11/19/24 17:20 820 mls/hr IV Administration .Q2H ONE Norepinephrine/Dextrose 8 mg in 250 mls @ 3.75 mls/hr 11/19/24 16:30 11/19/24 23:13 Levophed 8mg/250ml-D5w Premix IV 12/19/24 16:29 2 mcg/min .Q24H SUZY 3.75 mls/hr Infusion Protocol 2 MCG/MIN Vancomycin HCl 1,000 mg/ 250 mls @ 125 mls/hr 11/19/24 18:30 11/19/24 19:35 Sodium Chloride IV 11/19/24 20:29 125 mls/hr ONCE ONE Administration Heparin Sodium/Dextrose 500 mls @ 16 mls/hr 11/19/24 18:45 11/19/24 19:24 Heparin 25,000 Units In D5w 500ml Premix IV 12/19/24 18:44 16 mls/hr .Q25H SUZY Administration 800 UNITS/HR Piperacillin Sod/Tazobactam 50 mls @ 100 mls/hr 11/19/24 18:53 11/19/24 19:00 Sod 3.375 gm/ Sodium Chloride IV 11/19/24 19:22 100 mls/hr ONCE ONE Administration Propofol 100 mls @ 1.347 mls/hr 11/19/24 18:59 11/19/24 23:10 Diprivan 10mg/Ml 100ml Bottle IV 12/19/24 18:58 20 mcg/kg/min .Q24H SUZY 5.39 mls/hr Titration Protocol 5 MCG/KG/MIN Lactated Ringer's 1,000 mls @ 999 mls/hr 11/19/24 22:19 11/19/24 22:22 Lactated Ringer's 1000 Ml Bag IV 11/19/24 23:19 999 mls/hr .Q1H1M ONE Administration Insulin Human Regular 10 unit 11/19/24 15:59 11/19/24 18:31 Insulin Human Regular 100 Units/Ml 10ml Vial IVP 11/19/24 16:00 Not Given ONCE ONE Iopamidol 85 ml 11/19/24 17:32 11/19/24 17:33 Iopamidol-370 (76%);100ml Bottle IV 11/19/24 17:33 85 ml ONCE ONE Administration Methylprednisolone Sodium Succinate 125 mg 11/19/24 14:57 11/19/24 15:11 Methylprednisolone Sod Succ 125mg Vial IV 11/19/24 14:58 125 mg ONCE ONE Administration Miscellaneous 1 each 11/19/24 18:30 11/19/24 19:18 Vancomycin Consult Request NOTLIC 12/19/24 18:29 Not Given CONSULT [facility] Miscellaneous 1 each 11/19/24 18:30 11/19/24 19:49 Heparin Drip Consult NOTAPPLIC 12/19/24 18:29 Not Given [facility]SULT [facility] Ondansetron HCl 4 mg 11/19/24 15:28 11/19/24 15:30 Ondansetron 4mg/2ml Vial IV 11/19/24 15:29 4 mg ONCE ONE Administration Rocuronium Munson 60 mg 11/19/24 18:14 11/19/24 17:19 Rocuronium [place]son 50mg/5ml Vial IV 11/19/24 18:15 60 mg ONCE ONE Administration Sodium Chloride 3 ml 11/19/24 15:12 Sodium Chloride 3% 15ml Neb IH 12/19/24 15:11 ONCE PRN INDUCE SPUTUM COLLECTION Sodium Chloride 10 ml 11/19/24 17:32 11/19/24 17:33 Sodium Chloride 0.9% 10ml Syr (Rad Only) IV 11/19/24 17:33 10 ml ONCE ONE Administration Sodium Chloride 50 ml 11/19/24 17:32 11/19/24 17:33 0.9 % Sodium Chloride 50 Ml Vial IV 11/19/24 17:33 50 ml ONCE ONE Administration Sodium Zirconium Cyclosilicate 10 gm 11/19/24 16:00 11/19/24 18:31 Lokelma 5gm Packet PO 11/19/24 16:01 Not Given ONCE ONE ORDERS Category Date Time Status CT abdomen pelvis w con Stat Cat Scan 11/19/24 17:[address] angio chest PE protocol Stat Cat Scan 11/19/24 15:56 Completed XR chest portable Stat Exams 11/19/24 14:57 Completed XR chest portable Stat Exams 11/19/24 17:26 Completed BNP [NT Pro Brain Natriuretic Pep.] Stat Lab 11/19/24 15:00 Completed Blood alcohol [Ethyl Alcohol] Stat Lab 11/19/24 15:00 Completed CBC w/Auto Diff [Complete Blood Count Auto Diff] Stat Lab 11/19/24 15:00 Completed CK [Creatine Kinase] Stat Lab 11/19/24 20:03 Completed CMP [Comprehensive Metabolic Panel] Stat Lab 11/19/24 15:00 Completed CRP [C-Reactive Protein] Stat Lab 11/19/24 15:00 Completed D-Dimer Stat Lab 11/19/24 15:00 Completed Full Resp Panel w/COVID ([facility]) Routine Lab 11/19/24 15:00 Completed INR [Prothrombin Time INR] Stat Lab 11/19/24 15:00 Completed Lactic Acid Follow Up (RFLX 1) Stat Lab 11/19/24 19:33 Completed Lactic Acid Follow up (RFLX 2) Stat Lab 11/19/24 21:46 Completed Magnesium Stat Lab 11/19/24 15:00 Completed PTT Heparin (inpatient only) Stat Lab 11/19/24 15:00 Completed Procalcitonin Stat Lab 11/19/24 15:00 Completed Trop I [Troponin I] Stat Lab 11/19/24 15:00 Completed Troponin I Q3H Lab 11/19/24 17:58 Completed Troponin I Q3H Lab 11/19/24 21:16 Completed UA [Urinalysis and Microscopic] Stat Lab 11/19/24 15:56 Completed UDS [Drug Screen,Urine] Stat Lab 11/19/24 15:56 Completed Blood Culture Stat Micro 11/19/24 15:34 Results Sputum Culture & Gram Stain Stat Micro 11/19/24 17:40 Results ABG [Arterial Blood Gas] Stat RT 11/19/24 18:13 Completed ABG [Arterial Blood Gas] Stat RT 11/19/24 20:07 Completed VBG [Venous Blood Gas] Stat RT 11/19/24 14:59 Completed Tissue Perfus/Sepsis Re-Eval Sepsis Re-Evaluation Performed: Yes Date Performed: 11/19/24 Time Performed: 16:31 MDM Narrative Medical Decision Narrative: In summary patient is a 54-year-old female who presents to the emergency department for evaluation of chest pain and dyspnea. Patient is hemodynamically unstable upon arrival with a blood pressure 153/129 of pulse of 102 with sinus tachycardia on the bedside monitor tachypneic at 35 with an O2 sat of 30% on room air and patient is cyanotic, hypothermic at 96.2. Physical exam reveals a patient and extremis with central cyanosis increased work of breathing with accessory muscle use diminished breath sounds and expiratory wheezes in all 4 swenson but she is awake and interacting with a Purcell Coma Score 15. Differential diagnosis includes ACS versus cardiogenic shock versus septic shock versus COPD exacerbation etc. Initial workup will be conducted with plain film chest x-ray hematologic labs full respiratory panel VBG twelve-lead EKG. Initial interventions include nonrebreather mask DuoNeb Solu-Medrol continuous cardiac monitoring pulse oximetry supplemental O2. Initial workup reviewed by me and her hematologic labs show a white count of 20.5 hemoglobin hematocrit of 10.1 and 32.4 respectively an absolute neutrophil count of 15.5 and INR of 1.3 a D-dimer of 4.13, VBG of 7.23 pCO2 of 62.0 VBG lactic acid of 6.3, sodium 132 potassium 6.0 anion gap of 19 BUN of 31 creatinine 1.8 GFR of 29 total bilirubin is normal at 1.3 but AST is 4301 ALT is 2066 alk phos is 57 initial troponin is 0.44 CRP is 135.2 NT proBNP is 27,600 procalcitonin is 2.13 and my informal interpretation of her plain film chest x-ray shows a right lower lobe pneumonia. Patient then transitioned into BiPAP, blood cultures sputum cultures have been ordered and patient's been started on initially azithromycin and Rocephin, sepsis bolus has been ordered, patient given aspirin and Plavix, CTA of the chest abdomen pelvis has been ordered.. Upon repeat evaluation patient's blood pressure has been soft and she appears to be mentating well but is still tachypneic tachycardic. We had interactive discussion with the patient regarding her advance directives and she is agreeable to intubation. Patient subsequently electively intubated by Dr. Castillo. Please see his intubation note. CT scan PE protocol then performed and my informal TURB rotation shows significant right-sided pleural effusion along with infiltrates bilaterally prior to radiology read. Patient found to have multiple PEs by radiology with right heart strain. I had interactive discussion with our hospital medicine and given her multi system organ failure severe sepsis it was felt that she would be best served by a multidisciplinary team at a tertiary care facility. Given that I had a direct discussion with [facility] and spoke with Dr. Smith about patient STAPLES management and plan and she has been accepted for further evaluation and care.. Given this [patient is appropriate for discharge at this time and will be discharged with a prescription for... The case was discussed with hospital medicine regarding management and they will admit the patient their service for continued evaluation at this time... Etc.] <Aly Powell MD - Last Filed: 11/20/24 02:08> Vital Signs Vital Signs: 11/19/24 15:02 11/19/24 15:10 11/19/24 15:10 Temperature 96.2 F L Temperature Source Axillary Pulse Rate 107 H 102 H Pulse Rate [Right] 76 Respiratory Rate 35 H Blood Pressure Blood Pressure [Right Arm] 153/129 H Blood Pressure Mean Blood Pressure Mean [Right Arm] 137 Blood Pressure Source [Right Arm] Automatic Cuff Blood Pressure Position [Right Arm] Supine 02 Sat by Pulse Oximetry 30 L Oxygen Delivery Method Room Air Fraction of Inspired Oxygen 11/19/24 15:30 11/19/24 15:55 11/19/24 16:00 Temperature 98.2 F Temperature Source Pulse Rate 96 H Pulse Rate [Right] Respiratory Rate 19 Blood Pressure 83/41 L Blood Pressure [Right Arm] Blood Pressure Mean Blood Pressure Mean [Right Arm] Blood Pressure Source [Right Arm] Blood Pressure Position [Right Arm] 02 Sat by Pulse Oximetry 83 L Oxygen Delivery Method Fraction of Inspired Oxygen 25 40 11/19/24 16:30 11/19/24 17:00 11/19/24 17:25 Temperature 99.1 F Temperature Source Pulse Rate 91 H Pulse Rate [Right] Respiratory Rate 29 H 17 Blood Pressure 80/51 L 101/68 L 189/162 H Blood Pressure [Right Arm] Blood Pressure Mean 83 166 Blood Pressure Mean [Right Arm] Blood Pressure Source [Right Arm] Blood Pressure Position [Right Arm] 02 Sat by Pulse Oximetry 67 L Oxygen Delivery Method Fraction of Inspired Oxygen 11/19/24 18:00 11/19/24 18:00 11/19/24 18:30 Temperature Temperature Source Pulse Rate 59 L 94 H Pulse Rate [Right] Respiratory Rate 18 Blood Pressure 105/74 L 112/79 Blood Pressure [Right Arm] Blood Pressure Mean 82 88 Blood Pressure Mean [Right Arm] Blood Pressure Source [Right Arm] Blood Pressure Position [Right Arm] 02 Sat by Pulse Oximetry Oxygen Delivery Method Fraction of Inspired Oxygen 50 11/19/24 18:40 11/19/24 19:00 11/19/24 19:30 Temperature 98.6 F 98.6 F Temperature Source Pulse Rate 90 95 H Pulse Rate [Right] Respiratory Rate 18 Blood Pressure 116/77 111/54 L Blood Pressure [Right Arm] Blood Pressure Mean 91 89 Blood Pressure Mean [Right Arm] Blood Pressure Source [Right Arm] Blood Pressure Position [Right Arm] 02 Sat by Pulse Oximetry 98 98 Oxygen Delivery Method Mechanical Ventilation Mechanical Ventilation Fraction of Inspired Oxygen 100 11/19/24 20:00 11/19/24 20:30 11/19/24 20:36 Temperature 98.6 F 98.6 F Temperature Source Pulse Rate Pulse Rate [Right] Respiratory Rate 16 16 18 Blood Pressure 105/71 L 118/72 Blood Pressure [Right Arm] Blood Pressure Mean 80 83 Blood Pressure Mean [Right Arm] Blood Pressure Source [Right Arm] Blood Pressure Position [Right Arm] 02 Sat by Pulse Oximetry 98 98 Oxygen Delivery Method Mechanical Ventilation Mechanical Ventilation Fraction of Inspired Oxygen 60 11/19/24 20:45 11/19/24 21:00 11/19/24 21:06 Temperature 98.8 F 98.8 F 98.8 F Temperature Source Pulse Rate 85 Pulse Rate [Right] Respiratory Rate 18 17 18 Blood Pressure 99/73 L 95/65 L Blood Pressure [Right Arm] Blood Pressure Mean Blood Pressure Mean [Right Arm] Blood Pressure Source [Right Arm] Blood Pressure Position [Right Arm] 02 Sat by Pulse Oximetry 94 L Oxygen Delivery Method Fraction of Inspired Oxygen 11/19/24 21:20 11/19/24 21:30 11/19/24 21:50 Temperature 99.0 F 99.0 F 99.0 F Temperature Source Pulse Rate Pulse Rate [Right] Respiratory Rate 18 18 20 Blood Pressure 91/55 L 112/69 121/74 Blood Pressure [Right Arm] Blood Pressure Mean Blood Pressure Mean [Right Arm] Blood Pressure Source [Right Arm] Blood Pressure Position [Right Arm] 02 Sat by Pulse Oximetry 98 100 Oxygen Delivery Method Fraction of Inspired Oxygen 11/19/24 21:52 11/19/24 22:00 11/19/24 22:15 Temperature 99.0 F 99.1 F Temperature Source Pulse Rate 66 81 Pulse Rate [Right] Respiratory Rate 18 18 18 Blood Pressure 103/73 L 102/69 L Blood Pressure [Right Arm] Blood Pressure Mean Blood Pressure Mean [Right Arm] Blood Pressure Source [Right Arm] Blood Pressure Position [Right Arm] 02 Sat by Pulse Oximetry Oxygen Delivery Method Fraction of Inspired Oxygen 60 11/19/24 22:30 11/19/24 22:45 11/19/24 23:00 Temperature 99.0 F 99.1 F 99.0 F Temperature Source Pulse Rate 61 61 Pulse Rate [Right] Respiratory Rate 18 18 17 Blood Pressure 111/78 95/72 L 114/78 Blood Pressure [Right Arm] Blood Pressure Mean Blood Pressure Mean [Right Arm] Blood Pressure Source [Right Arm] Blood Pressure Position [Right Arm] 02 Sat by Pulse Oximetry Oxygen Delivery Method Fraction of Inspired Oxygen 11/19/24 23:15 11/19/24 23:30 11/19/24 23:34 Temperature 99.1 F 98.8 F Temperature Source Pulse Rate Pulse Rate [Right] Respiratory Rate 18 18 Blood Pressure 128/81 116/78 Blood Pressure [Right Arm] Blood Pressure Mean Blood Pressure Mean [Right Arm] Blood Pressure Source [Right Arm] Blood Pressure Position [Right Arm] 02 Sat by Pulse Oximetry Oxygen Delivery Method Fraction of Inspired Oxygen 60 11/19/24 23:45 11/20/24 00:00 11/20/24 00:15 Temperature 99.0 F 98.8 F 98.8 F Temperature Source Pulse Rate 80 Pulse Rate [Right] Respiratory Rate 19 18 18 Blood Pressure 138/87 122/85 104/74 L Blood Pressure [Right Arm] Blood Pressure Mean Blood Pressure Mean [Right Arm] Blood Pressure Source [Right Arm] Blood Pressure Position [Right Arm] 02 Sat by Pulse Oximetry Oxygen Delivery Method Fraction of Inspired Oxygen 11/20/24 00:30 11/20/24 00:45 11/20/24 01:00 Temperature 98.6 F 98.6 F 98.8 F Temperature Source Pulse Rate 80 Pulse Rate [Right] Respiratory Rate 18 18 18 Blood Pressure 107/70 L 115/81 100/74 L Blood Pressure [Right Arm] Blood Pressure Mean Blood Pressure Mean [Right Arm] Blood Pressure Source [Right Arm] Blood Pressure Position [Right Arm] 02 Sat by Pulse Oximetry 99 99 Oxygen Delivery Method Fraction of Inspired Oxygen 11/20/24 01:56 Temperature 98.8 F Temperature Source Pulse Rate 81 Pulse Rate [Right] Respiratory Rate 18 Blood Pressure 106/67 L Blood Pressure [Right Arm] Blood Pressure Mean Blood Pressure Mean [Right Arm] Blood Pressure Source [Right Arm] Blood Pressure Position [Right Arm] 02 Sat by Pulse Oximetry Oxygen Delivery Method Room Air Fraction of Inspired Oxygen Lab Data Labs: Lab Results 11/19/24 14:59: VBG pH 7.23 L, VBG pCO2 62.0 H, VBG pO2 42.2 H, VBG HCO3 25.1, VBG Total CO2 27.0, VBG O2 Saturation 62.3, VBG Base Excess -2.5 L, VBG Lactic Acid 6.3 H 11/19/24 15:00: WBC 20.5 H*, RBC 3.73 L, Hgb 10.1 L, Hct 32.4 L, MCV 86.9, MCH 27.1, MCHC 31.2 L, RDW 14.8, Plt Count 309, MPV 10.1, Neut % (Auto) 75.4, Lymph % (Auto) 10.6, Polk % (Auto) 13.1 H, Eos % (Auto) 0.0 L, Baso % (Auto) 0.1, Neut # (Auto) 15.5 H, Lymph # (Auto) 2.2, Polk # (Auto) 2.7 H, Eos # (Auto) 0.0, Baso # (Auto) 0.0, Total Counted 100, Neutrophils % (Manual) 81 H, Lymphocytes % (Manual) 14, Monocytes % (Manual) 5, Platelet Estimate Normal, RBC Morphology Normal, PT 14.2 H, INR 1.30 H, APTT 27.9 L, D-Dimer 4.13 H, Sodium 132 L, P otassium 6.0 H, Chloride 92 L, Carbon Dioxide 27, Anion Gap 19.0 H, BUN 31 H, C reatinine 1.80 H, Estimated Creat Clear 25, Estimated GFR 29 L, Est GFR ( Amer) 35 L, Glucose 100, Calcium 8.7, Magnesium 1.8, Total Bilirubin 1.3, AST 4301 H*, ALT 2066 H*, Alkaline Phosphatase 57, Troponin I 0.44 H, C-Reactive Protein 135.2 H, NT-Pro-B Natriuret Pep 87717 H, Total Protein 6.4, Albumin 3.6, Globulin 2.8, Albumin/Globulin Ratio 1.3, Procalcitonin 2.13 H, Plasma/Serum Alcohol < 10, Chlamy pneumoniae PCR Not detected, Adenovirus (PCR) Not detected, B. pertussis DNA (PCR) Not detected, Coronavirus OC43 (PCR) Not detected, Coronavirus HKU1 (PCR) Not detected, Coronavirus 229E (PCR) Not detected, SARS-CoV-2 (PCR) Not detected, Coronavirus NL63 (PCR) Not detected, Human Metapneumovir PCR Not detected, Influenza A (H1) PCR Not detected, Influ A (H1N1/09) PCR Not detected, Influenza A (H3) PCR Not detected, Influenza Type A (PCR) Not detected, Influenza Type B (PCR) Not detected, M. pneumoniae (PCR) Not detected, Parainfluenza 1 (PCR) Not detected, Parainfluenza 2 (PCR) Not detected, Parainfluenza 3 (PCR) Not detected, Parainfluenza 4 (PCR) Not detected, RSV (PCR) Not detected, Entero/Rhino (PCR) Not detected 11/19/24 15:56: Urine Color Yellow, Urine Appearance Clear, Urine pH 5.5, Ur Specific Atkinson 1.025, Urine Protein Trace, Urine Glucose (UA) Negative, Urine Ketones Negative, Urine Blood Negative, Urine Nitrate Negative, Urine Bilirubin Negative, Urine Urobilinogen 0.2, Ur Leukocyte Esterase Negative, Urine RBC None, Urine WBC 3-5, Ur Squamous Epith Cells 3-5, Urine Bacteria Trace, Urine Mucus 2+, Urine Opiates Screen Positive H, Urine Methadone Screen Negative, Ur Barbituates Screen Negative, Ur Phencyclidine Scrn Negative, Ur Amphetamines Screen Negative, U Benzodiazepines Scrn Positive H, Urine Cocaine Screen Negative, U Marijuana (THC) Screen Positive H 11/19/24 17:58: Troponin I 0.63 H 11/19/24 18:13: Specimen Source Right radial, O2 % 50, ABG pH 7.19 L*, ABG pCO2 46.7 H, ABG pO2 61.2 L, ABG HCO3 17.6 L, ABG Total CO2 19.0 L, ABG O2 Saturation 82 L*, ABG Base Excess -10.5 L, Tong Test Art line, Vent Rate 18, Tidal Volume 400, PEEP 5 11/19/24 19:33: Lactate 6.3 H 11/19/24 20:03: Total Creatine Kinase 74 11/19/24 20:07: Specimen Source Art line, O2 % 100, ABG pH 7.28 L, ABG pCO2 46.1 H, ABG pO2 315.1 H, ABG HCO3 21.1 L, ABG Total CO2 22.5 L, ABG O2 Saturation 100, ABG Base Excess -5.7 L, Tong Test Non applicable, Vent Rate 18, Tidal Volume 400, PEEP 5 11/19/24 21:16: Troponin I 0.78 H 11/19/24 21:46: Lactate 4.1 H Response Orders (Tests/Meds): ED MEDICATIONS Discontinued Medications Generic Name Dose Route Start Last Admin Trade Name Ines PRN Reason Stop Dose Admin Albuterol/Ipratropium 9 ml 11/19/24 14:57 11/19/24 15:25 Ipratropium/Albuterol 3 Ml Neb IH 11/19/24 14:58 9 ml ONCE ONE Administration Aspirin 325 mg 11/19/24 15:57 11/19/24 18:31 Aspirin 325mg Tablet PO 11/19/24 15:58 Not Given ONCE ONE Clopidogrel Bisulfate 300 mg 11/19/24 15:57 11/19/24 18:31 Clopidogrel 300mg Tablet PO 11/19/24 15:58 Not Given ONCE ONE Dextrose 50 ml 11/19/24 15:59 11/19/24 18:31 Dextrose 50% 50ml Syringe (Crash Cart) IVP 11/19/24 16:00 Not Given ONCE ONE Etomidate 10 mg 11/19/24 18:15 11/19/24 17:19 Etomidate 40mg/20ml Vial IV 11/19/24 18:16 10 mg ONCE ONE Administration Heparin Sodium (Porcine) 3,600 unit 11/19/24 18:45 11/19/24 18:57 Heparin Sodium 5,000 Unit/Ml Vial IV 11/19/24 18:46 3,600 unit ONCE ONE Administration Magnesium Sulfate 2 gm in 50 mls @ 50 mls/hr 11/19/24 14:57 11/19/24 15:11 Magnesium Sulfate 2gm/50ml Premix IV 11/19/24 15:56 50 mls/hr ONCE ONE Administration Ceftriaxone Sodium 1 gm/ 50 mls @ 100 mls/hr 11/19/24 15:30 11/19/24 15:36 Sodium Chloride IV 11/29/24 15:29 100 mls/hr Q24H SUZY Administration Azithromycin 500 mg/ Sodium 250 mls @ 250 mls/hr 11/19/24 15:30 11/19/24 15:36 Chloride IV 11/29/24 15:29 250 mls/hr Q24H SUZY Administration Sodium Chloride 1,640 mls @ 820 mls/hr 11/19/24 15:21 11/19/24 15:32 Sod Chlor 0.9% 1000ml Bag 30 ml/kg infuse over 2 hr (1640 ml) 11/19/24 17:20 820 mls/hr IV Administration .Q2H ONE Norepinephrine/Dextrose 8 mg in 250 mls @ 3.75 mls/hr 11/19/24 16:30 11/19/24 23:13 Levophed 8mg/250ml-D5w Premix IV 12/19/24 16:29 2 mcg/min .Q24H SUZY 3.75 mls/hr Infusion Protocol 2 MCG/MIN Vancomycin HCl 1,000 mg/ 250 mls @ 125 mls/hr 11/19/24 18:30 11/19/24 19:35 Sodium Chloride IV 11/19/24 20:29 125 mls/hr ONCE ONE Administration Heparin Sodium/Dextrose 500 mls @ 16 mls/hr 11/19/24 18:45 11/19/24 19:24 Heparin 25,000 Units In D5w 500ml Premix IV 12/19/24 18:44 16 mls/hr .Q25H SUZY Administration 800 UNITS/HR Piperacillin Sod/Tazobactam 50 mls @ 100 mls/hr 11/19/24 18:53 11/19/24 19:00 Sod 3.375 gm/ Sodium Chloride IV 11/19/24 19:22 100 mls/hr ONCE ONE Administration Propofol 100 mls @ 1.347 mls/hr 11/19/24 18:59 11/19/24 23:10 Diprivan 10mg/Ml 100ml Bottle IV 12/19/24 18:58 20 mcg/kg/min .Q24H SUZY 5.39 mls/hr Titration Protocol 5 MCG/KG/MIN Lactated Ringer's 1,000 mls @ 999 mls/hr 11/19/24 22:19 11/19/24 22:22 Lactated Ringer's 1000 Ml Bag IV 11/19/24 23:19 999 mls/hr .Q1H1M ONE Administration Insulin Human Regular 10 unit 11/19/24 15:59 11/19/24 18:31 Insulin Human Regular 100 Units/Ml 10ml Vial IVP 11/19/24 16:00 Not Given ONCE ONE Iopamidol 85 ml 11/19/24 17:32 11/19/24 17:33 Iopamidol-370 (76%);100ml Bottle IV 11/19/24 17:33 85 ml ONCE ONE Administration Methylprednisolone Sodium Succinate 125 mg 11/19/24 14:57 11/19/24 15:11 Methylprednisolone Sod Succ 125mg Vial IV 11/19/24 14:58 125 mg ONCE ONE Administration Miscellaneous 1 each 11/19/24 18:30 11/19/24 19:18 Vancomycin Consult Request NOTAPPLIC 12/19/24 18:29 Not Given CONSULT [facility]Y [facility] Miscellaneous 1 each 11/19/24 18:30 11/19/24 19:49 Heparin Drip Consult NOTAPPLIC 12/19/24 18:29 Not Given CONSULT [facility] Ondansetron HCl 4 mg 11/19/24 15:28 11/19/24 15:30 Ondansetron 4mg/2ml Vial IV 11/19/24 15:29 4 mg ONCE ONE Administration Rocuronium Munson 60 mg 11/19/24 18:14 11/19/24 17:19 Rocuronium Munson 50mg/5ml Vial IV 11/19/24 18:15 60 mg ONCE ONE Administration Sodium Chloride 3 ml 11/19/24 15:12 Sodium Chloride 3% 15ml Neb IH 12/19/24 15:11 ONCE PRN INDUCE SPUTUM COLLECTION Sodium Chloride 10 ml 11/19/24 17:32 11/19/24 17:33 Sodium Chloride 0.9% 10ml Syr (Rad Only) IV 11/19/24 17:33 10 ml ONCE ONE Administration Sodium Chloride 50 ml 11/19/24 17:32 11/19/24 17:33 0.9 % Sodium Chloride 50 Ml Vial IV 11/19/24 17:33 50 ml ONCE ONE Administration Sodium Zirconium Cyclosilicate 10 gm 11/19/24 16:00 11/19/24 18:31 Lokelma 5gm Packet PO 11/19/24 16:01 Not Given ONCE ONE ORDERS Category Date Time Status CT abdomen pelvis w con Stat Cat Scan 11/19/24 17:[address] angio chest PE protocol Stat Cat Scan 11/19/24 15:56 Completed XR chest portable Stat Exams 11/19/24 14:57 Completed XR chest portable Stat Exams 11/19/24 17:26 Completed BNP [NT Pro Brain Natriuretic Pep.] Stat Lab 11/19/24 15:00 Completed Blood alcohol [Ethyl Alcohol] Stat Lab 11/19/24 15:00 Completed CBC w/Auto Diff [Complete Blood Count Auto Diff] Stat Lab 11/19/24 15:00 Completed CK [Creatine Kinase] Stat Lab 11/19/24 20:03 Completed CMP [Comprehensive Metabolic Panel] Stat Lab 11/19/24 15:00 Completed CRP [C-Reactive Protein] Stat Lab 11/19/24 15:00 Completed D-Dimer Stat Lab 11/19/24 15:00 Completed Full Resp Panel w/COVID ([facility]) Routine Lab 11/19/24 15:00 Completed INR [Prothrombin Time INR] Stat Lab 11/19/24 15:00 Completed Lactic Acid Follow Up (RFLX 1) Stat Lab 11/19/24 19:33 Completed Lactic Acid Follow up (RFLX 2) Stat Lab 11/19/24 21:46 Completed Magnesium Stat Lab 11/19/24 15:00 Completed PTT Heparin (inpatient only) Stat Lab 11/19/24 15:00 Completed Procalcitonin Stat Lab 11/19/24 15:00 Completed Trop I [Troponin I] Stat Lab 11/19/24 15:00 Completed Troponin I Q3H Lab 11/19/24 17:58 Completed Troponin I Q3H Lab 11/19/24 21:16 Completed UA [Urinalysis and Microscopic] Stat Lab 11/19/24 15:56 Completed UDS [Drug Screen,Urine] Stat Lab 11/19/24 15:56 Completed Blood Culture Stat Micro 11/19/24 15:34 Results Sputum Culture & Gram Stain Stat Micro 11/19/24 17:40 Results ABG [Arterial Blood Gas] Stat RT 11/19/24 18:13 Completed ABG [Arterial Blood Gas] Stat RT 11/19/24 20:07 Completed VBG [Venous Blood Gas] Stat RT 11/19/24 14:59 Completed MDM Narrative Medical Decision Narrative: In summary patient is a 54-year-old female who presents to the emergency department for evaluation of chest pain and dyspnea. Patient is hemodynamically unstable upon arrival with a blood pressure 153/129 of pulse of 102 with sinus tachycardia on the bedside monitor tachypneic at 35 with an O2 sat of 30% on room air and patient is cyanotic, hypothermic at 96.2. Physical exam reveals a patient and extremis with central cyanosis increased work of breathing with accessory muscle use diminished breath sounds and expiratory wheezes in all 4 swenson but she is awake and interacting with a Purcell Coma Score 15. Differential diagnosis includes ACS versus cardiogenic shock versus septic shock versus COPD exacerbation etc. Initial workup will be conducted with plain film chest x-ray hematologic labs full respiratory panel VBG twelve-lead EKG. Initial interventions include nonrebreather mask DuoNeb Solu-Medrol continuous cardiac monitoring pulse oximetry supplemental O2. Initial workup reviewed by me and her hematologic labs show a white count of 20.5 hemoglobin hematocrit of 10.1 and 32.4 respectively an absolute neutrophil count of 15.5 and INR of 1.3 a D-dimer of 4.13, VBG of 7.23 pCO2 of 62.0 VBG lactic acid of 6.3, sodium 132 potassium 6.0 anion gap of 19 BUN of 31 creatinine 1.8 GFR of 29 total bilirubin is normal at 1.3 but AST is 4301 ALT is 2066 alk phos is 57 initial troponin is 0.44 CRP is 135.2 NT proBNP is 27,600 procalcitonin is 2.13 and my informal interpretation of her plain film chest x-ray shows a right lower lobe pneumonia. Patient then transitioned into BiPAP, blood cultures sputum cultures have been ordered and patient's been started on initially azithromycin and Rocephin, sepsis bolus has been ordered, patient given aspirin and Plavix, CTA of the chest abdomen pelvis has been ordered.. Upon repeat evaluation patient's blood pressure has been soft and she appears to be mentating well but is still tachypneic tachycardic. We had interactive discussion with the patient regarding her advance directives and she is agreeable to intubation. Patient subsequently electively intubated by Dr. Castillo. Please see his intubation note. CT scan PE protocol then performed and my informal TURB rotation shows significant right-sided pleural effusion along with infiltrates bilaterally prior to radiology read. Patient found to have multiple PEs by radiology with right heart strain. I had interactive discussion with our hospital medicine and given her multi system organ failure severe sepsis it was felt that she would be best served by a multidisciplinary team at a tertiary care facility. Given that I had a direct discussion with [facility] [place] and spoke with Dr. Smith about patient STAPLES management and plan and she has been accepted for further evaluation and care.. Given this [patient is appropriate for discharge at this time and will be discharged with a prescription for... The case was discussed with hospital medicine regarding management and they will admit the patient their service for continued evaluation at this time... Etc.] I briefly took over care for patient during which time she remained hemodynamically stable and was rapidly transferred to [facility]. Please see Dr. Montero's and Dr. Castillo's documentation for details of the case. <Trev Montero MD - Last Filed: 11/20/24 07:57> Vital Signs Vital Signs: 11/19/24 15:02 11/19/24 15:10 11/19/24 15:10 Temperature 96.2 F L Temperature Source Axillary Pulse Rate 107 H 102 H Pulse Rate [Right] 76 Respiratory Rate 35 H Blood Pressure Blood Pressure [Right Arm] 153/129 H Blood Pressure Mean Blood Pressure Mean [Right Arm] 137 Blood Pressure Source [Right Arm] Automatic Cuff Blood Pressure Position [Right Arm] Supine 02 Sat by Pulse Oximetry 30 L Oxygen Delivery Method Room Air Fraction of Inspired Oxygen 11/19/24 15:30 11/19/24 15:55 11/19/24 16:00 Temperature 98.2 F Temperature Source Pulse Rate 96 H Pulse Rate [Right] Respiratory Rate 19 Blood Pressure 83/41 L Blood Pressure [Right Arm] Blood Pressure Mean Blood Pressure Mean [Right Arm] Blood Pressure Source [Right Arm] Blood Pressure Position [Right Arm] 02 Sat by Pulse Oximetry 83 L Oxygen Delivery Method Fraction of Inspired Oxygen 25 40 11/19/24 16:30 11/19/24 17:00 11/19/24 17:25 Temperature 99.1 F Temperature Source Pulse Rate 91 H Pulse Rate [Right] Respiratory Rate 29 H 17 Blood Pressure 80/51 L 101/68 L 189/162 H Blood Pressure [Right Arm] Blood Pressure Mean 83 166 Blood Pressure Mean [Right Arm] Blood Pressure Source [Right Arm] Blood Pressure Position [Right Arm] 02 Sat by Pulse Oximetry 67 L Oxygen Delivery Method Fraction of Inspired Oxygen 11/19/24 18:00 11/19/24 18:00 11/19/24 18:30 Temperature Temperature Source Pulse Rate 59 L 94 H Pulse Rate [Right] Respiratory Rate 18 Blood Pressure 105/74 L 112/79 Blood Pressure [Right Arm] Blood Pressure Mean 82 88 Blood Pressure Mean [Right Arm] Blood Pressure Source [Right Arm] Blood Pressure Position [Right Arm] 02 Sat by Pulse Oximetry Oxygen Delivery Method Fraction of Inspired Oxygen 50 11/19/24 18:40 11/19/24 19:00 11/19/24 19:30 Temperature 98.6 F 98.6 F Temperature Source Pulse Rate 90 95 H Pulse Rate [Right] Respiratory Rate 18 Blood Pressure 116/77 111/54 L Blood Pressure [Right Arm] Blood Pressure Mean 91 89 Blood Pressure Mean [Right Arm] Blood Pressure Source [Right Arm] Blood Pressure Position [Right Arm] 02 Sat by Pulse Oximetry 98 98 Oxygen Delivery Method Mechanical Ventilation Mechanical Ventilation Fraction of Inspired Oxygen 100 11/19/24 20:00 11/19/24 20:30 11/19/24 20:36 Temperature 98.6 F 98.6 F Temperature Source Pulse Rate Pulse Rate [Right] Respiratory Rate 16 16 18 Blood Pressure 105/71 L 118/72 Blood Pressure [Right Arm] Blood Pressure Mean 80 83 Blood Pressure Mean [Right Arm] Blood Pressure Source [Right Arm] Blood Pressure Position [Right Arm] 02 Sat by Pulse Oximetry 98 98 Oxygen Delivery Method Mechanical Ventilation Mechanical Ventilation Fraction of Inspired O[employer] 60 11/19/24 20:45 11/19/24 21:00 11/19/24 21:06 Temperature 98.8 F 98.8 F 98.8 F Temperature Source Pulse Rate 85 Pulse Rate [Right] Respiratory Rate 18 17 18 Blood Pressure 99/73 L 95/65 L Blood Pressure [Right Arm] Blood Pressure Mean Blood Pressure Mean [Right Arm] Blood Pressure Source [Right Arm] Blood Pressure Position [Right Arm] 02 Sat by Pulse Oximetry 94 L Oxygen Delivery Method Fraction of Inspired Oxygen 11/19/24 21:20 11/19/24 21:30 11/19/24 21:50 Temperature 99.0 F 99.0 F 99.0 F Temperature Source Pulse Rate Pulse Rate [Right] Respiratory Rate 18 18 20 Blood Pressure 91/55 L 112/69 121/74 Blood Pressure [Right Arm] Blood Pressure Mean Blood Pressure Mean [Right Arm] Blood Pressure Source [Right Arm] Blood Pressure Position [Right Arm] 02 Sat by Pulse Oximetry 98 100 Oxygen Delivery Method Fraction of Inspired Oxygen 11/19/24 21:52 11/19/24 22:00 11/19/24 22:15 Temperature 99.0 F 99.1 F Temperature Source Pulse Rate 66 81 Pulse Rate [Right] Respiratory Rate 18 18 18 Blood Pressure 103/73 L 102/69 L Blood Pressure [Right Arm] Blood Pressure Mean Blood Pressure Mean [Right Arm] Blood Pressure Source [Right Arm] Blood Pressure Position [Right Arm] 02 Sat by Pulse Oximetry Oxygen Delivery Method Fraction of Inspired Oxygen 60 11/19/24 22:30 11/19/24 22:45 11/19/24 23:00 Temperature 99.0 F 99.1 F 99.0 F Temperature Source Pulse Rate 61 61 Pulse Rate [Right] Respiratory Rate 18 18 17 Blood Pressure 111/78 95/72 L 114/78 Blood Pressure [Right Arm] Blood Pressure Mean Blood Pressure Mean [Right Arm] Blood Pressure Source [Right Arm] Blood Pressure Position [Right Arm] 02 Sat by Pulse Oximetry Oxygen Delivery Method Fraction of Inspired Oxygen 11/19/24 23:15 11/19/24 23:30 11/19/24 23:34 Temperature 99.1 F 98.8 F Temperature Source Pulse Rate Pulse Rate [Right] Respiratory Rate 18 18 Blood Pressure 128/81 116/78 Blood Pressure [Right Arm] Blood Pressure Mean Blood Pressure Mean [Right Arm] Blood Pressure Source [Right Arm] Blood Pressure Position [Right Arm] 02 Sat by Pulse Oximetry Oxygen Delivery Method Fraction of Inspired Oxygen 60 11/19/24 23:45 11/20/24 00:00 11/20/24 00:15 Temperature 99.0 F 98.8 F 98.8 F Temperature Source Pulse Rate 80 Pulse Rate [Right] Respiratory Rate 19 18 18 Blood Pressure 138/87 122/85 104/74 L Blood Pressure [Right Arm] Blood Pressure Mean Blood Pressure Mean [Right Arm] Blood Pressure Source [Right Arm] Blood Pressure Position [Right Arm] 02 Sat by Pulse Oximetry Oxygen Delivery Method Fraction of Inspired Oxygen 11/20/24 00:30 11/20/24 00:45 11/20/24 01:00 Temperature 98.6 F 98.6 F 98.8 F Temperature Source Pulse Rate 80 Pulse Rate [Right] Respiratory Rate 18 18 18 Blood Pressure 107/70 L 115/81 100/74 L Blood Pressure [Right Arm] Blood Pressure Mean Blood Pressure Mean [Right Arm] Blood Pressure Source [Right Arm] Blood Pressure Position [Right Arm] 02 Sat by Pulse Oximetry 99 99 Oxygen Delivery Method Fraction of Inspired Oxygen 11/20/24 01:56 Temperature 98.8 F Temperature Source Pulse Rate 81 Pulse Rate [Right] Respiratory Rate 18 Blood Pressure 106/67 L Blood Pressure [Right Arm] Blood Pressure Mean Blood Pressure Mean [Right Arm] Blood Pressure Source [Right Arm] Blood Pressure Position [Right Arm] 02 Sat by Pulse Oximetry Oxygen Delivery Method Room Air Fraction of Inspired Oxygen Lab Data Labs: Lab Results 11/19/24 14:59: VBG pH 7.23 L, VBG pCO2 62.0 H, VBG pO2 42.2 H, VBG HCO3 25.1, VBG Total CO2 27.0, VBG O2 Saturation 62.3, VBG Base Excess -2.5 L, VBG Lactic Acid 6.3 H 11/19/24 15:00: WBC 20.5 H*, RBC 3.73 L, Hgb 10.1 L, Hct 32.4 L, MCV 86.9, MCH 27.1, MCHC 31.2 L, RDW 14.8, Plt Count 309, MPV 10.1, Neut % (Auto) 75.4, Lymph % (Auto) 10.6, Polk % (Auto) 13.1 H, Eos % (Auto) 0.0 L, Baso % (Auto) 0.1, Neut # (Auto) 15.5 H, Lymph # (Auto) 2.2, Polk # (Auto) 2.7 H, Eos # (Auto) 0.0, Baso # (Auto) 0.0, Total Counted 100, Neutrophils % (Manual) 81 H, Lymphocytes % (Manual) 14, Monocytes % (Manual) 5, Platelet Estimate Normal, RBC Morphology Normal, PT 14.2 H, INR 1.30 H, APTT 27.9 L, D-Dimer 4.13 H, Sodium 132 L, P otassium 6.0 H, Chloride 92 L, Carbon Dioxide 27, Anion Gap 19.0 H, BUN 31 H, C reatinine 1.80 H, Estimated Creat Clear 25, Estimated GFR 29 L, Est GFR ( Amer) 35 L, Glucose 100, Calcium 8.7, Magnesium 1.8, Total Bilirubin 1.3, AST 4301 H*, ALT 2066 H*, Alkaline Phosphatase 57, Troponin I 0.44 H, C-Reactive Protein 135.2 H, NT-Pro-B Natriuret Pep 40906 H, Total Protein 6.4, Albumin 3.6, Globulin 2.8, Albumin/Globulin Ratio 1.3, Procalcitonin 2.13 H, Plasma/Serum Alcohol < 10, Chlamy pneumoniae PCR Not detected, Adenovirus (PCR) Not detected, B. pertussis DNA (PCR) Not detected, Coronavirus OC43 (PCR) Not detected, Coronavirus HKU1 (PCR) Not detected, Coronavirus 229E (PCR) Not detected, SARS-CoV-2 (PCR) Not detected, Coronavirus NL63 (PCR) Not detected, Human Metapneumovir PCR Not detected, Influenza A (H1) PCR Not detected, Influ A (H1N1/09) PCR Not detected, Influenza A (H3) PCR Not detected, Influenza Type A (PCR) Not detected, Influenza Type B (PCR) Not detected, M. pneumoniae (PCR) Not detected, Parainfluenza 1 (PCR) Not detected, Parainfluenza 2 (PCR) Not detected, Parainfluenza 3 (PCR) Not detected, Parainfluenza 4 (PCR) Not detected, RSV (PCR) Not detected, Entero/Rhino (PCR) Not detected 11/19/24 15:56: Urine Color Yellow, Urine Appearance Clear, Urine pH 5.5, Ur Specific Atkinson 1.025, Urine Protein Trace, Urine Glucose (UA) Negative, Urine Ketones Negative, Urine Blood Negative, Urine Nitrate Negative, Urine Bilirubin Negative, Urine Urobilinogen 0.2, Ur Leukocyte Esterase Negative, Urine RBC None, Urine WBC 3-5, Ur Squamous Epith Cells 3-5, Urine Bacteria Trace, Urine Mucus 2+, Urine Opiates Screen Positive H, Urine Methadone Screen Negative, Ur Barbituates Screen Negative, Ur Phencyclidine Scrn Negative, Ur Amphetamines Screen Negative, U Benzodiazepines Scrn Positive H, Urine Cocaine Screen Negative, U Marijuana (THC) Screen Positive H 11/19/24 17:58: Troponin I 0.63 H 11/19/24 18:13: Specimen Source Right radial, O2 % 50, ABG pH 7.19 L*, ABG pCO2 46.7 H, ABG pO2 61.2 L, ABG HCO3 17.6 L, ABG Total CO2 19.0 L, ABG O2 Saturation 82 L*, ABG Base Excess -10.5 L, Tong Test Art line, Vent Rate 18, Tidal Volume 400, PEEP 5 11/19/24 19:33: Lactate 6.3 H 11/19/24 20:03: Total Creatine Kinase 74 11/19/24 20:07: Specimen Source Art line, O2 % 100, ABG pH 7.28 L, ABG pCO2 46.1 H, ABG pO2 315.1 H, ABG HCO3 21.1 L, ABG Total CO2 22.5 L, ABG O2 Saturation 100, ABG Base Excess -5.7 L, Tong Test Non applicable, Vent Rate 18, Tidal Volume 400, PEEP 5 11/19/24 21:16: Troponin I 0.78 H 11/19/24 21:46: Lactate 4.1 H Response Orders (Tests/Meds): ED MEDICATIONS Discontinued Medications Generic Name Dose Route Start Last Admin Trade Name Freq PRN Reason Stop Dose Admin Albuterol/Ipratropium 9 ml 11/19/24 14:57 11/19/24 15:25 Ipratropium/Albuterol 3 Ml Neb IH 11/19/24 14:58 9 ml ONCE ONE Administration Aspirin 325 mg 11/19/24 15:57 11/19/24 18:31 Aspirin 325mg Tablet PO 11/19/24 15:58 Not Given ONCE ONE Clopidogrel Bisulfate 300 mg 11/19/24 15:57 11/19/24 18:31 Clopidogrel 300mg Tablet PO 11/19/24 15:58 Not Given ONCE ONE Dextrose 50 ml 11/19/24 15:59 11/19/24 18:31 Dextrose 50% 50ml Syringe (Crash Cart) IVP 11/19/24 16:00 Not Given ONCE ONE Etomidate 10 mg 11/19/24 18:15 11/19/24 17:19 Etomidate 40mg/20ml Vial IV 11/19/24 18:16 10 mg ONCE ONE Administration Heparin Sodium (Porcine) 3,600 unit 11/19/24 18:45 11/19/24 18:57 Heparin Sodium 5,000 Unit/Ml Vial IV 11/19/24 18:46 3,600 unit ONCE ONE Administration Magnesium Sulfate 2 gm in 50 mls @ 50 mls/hr 11/19/24 14:57 11/19/24 15:11 Magnesium Sulfate 2gm/50ml Premix IV 11/19/24 15:56 50 mls/hr ONCE ONE Administration Ceftriaxone Sodium 1 gm/ 50 mls @ 100 mls/hr 11/19/24 15:30 11/19/24 15:36 Sodium Chloride IV 11/29/24 15:29 100 mls/hr Q24H SUZY Administration Azithromycin 500 mg/ Sodium 250 mls @ 250 mls/hr 11/19/24 15:30 11/19/24 15:36 Chloride IV 11/29/24 15:29 250 mls/hr Q24H SUZY Administration Sodium Chloride 1,640 mls @ 820 mls/hr 11/19/24 15:21 11/19/24 15:32 Sod Chlor 0.9% 1000ml Bag 30 ml/kg infuse over 2 hr (1640 ml) 11/19/24 17:20 820 mls/hr IV Administration .Q2H ONE Norepinephrine/Dextrose 8 mg in 250 mls @ 3.75 mls/hr 11/19/24 16:30 11/19/24 23:13 Levophed 8mg/250ml-D5w Premix IV 12/19/24 16:29 2 mcg/min .Q24H SUZY 3.75 mls/hr Infusion Protocol 2 MCG/MIN Vancomycin HCl 1,000 mg/ 250 mls @ 125 mls/hr 11/19/24 18:30 11/19/24 19:35 Sodium Chloride IV 11/19/24 20:29 125 mls/hr ONCE ONE Administration Heparin Sodium/Dextrose 500 mls @ 16 mls/hr 11/19/24 18:45 11/19/24 19:24 Heparin 25,000 Units In D5w 500ml Premix IV 12/19/24 18:44 16 mls/hr .Q25H SUZY Administration 800 UNITS/HR Piperacillin Sod/Tazobactam 50 mls @ 100 mls/hr 11/19/24 18:53 11/19/24 19:00 Sod 3.375 gm/ Sodium Chloride IV 11/19/24 19:22 100 mls/hr ONCE ONE Administration Propofol 100 mls @ 1.347 mls/hr 11/19/24 18:59 11/19/24 23:10 Diprivan 10mg/Ml 100ml Bottle IV 12/19/24 18:58 20 mcg/kg/min .Q24H SUZY 5.39 mls/hr Titration Protocol 5 MCG/KG/MIN Lactated Ringer's 1,000 mls @ 999 mls/hr 11/19/24 22:19 11/19/24 22:22 Lactated Ringer's 1000 Ml Bag IV 11/19/24 23:19 999 mls/hr .Q1H1M ONE Administration Insulin Human Regular 10 unit 11/19/24 15:59 11/19/24 18:31 Insulin Human Regular 100 Units/Ml 10ml Vial IVP 11/19/24 16:00 Not Given ONCE ONE Iopamidol 85 ml 11/19/24 17:32 11/19/24 17:33 Iopamidol-370 (76%);100ml Bottle IV 11/19/24 17:33 85 ml ONCE ONE Administration Methylprednisolone Sodium Succinate 125 mg 11/19/24 14:57 11/19/24 15:11 Methylprednisolone Sod Succ 125mg Vial IV 11/19/24 14:58 125 mg ONCE ONE Administration Miscellaneous 1 each 11/19/24 18:30 11/19/24 19:18 Vancomycin Consult Request NOTAPPLIC 12/19/24 18:29 Not Given CONSULT PHARMACY SUZY Miscellaneous 1 each 11/19/24 18:30 11/19/24 19:49 Heparin Drip Consult NOTAPPLIC 12/19/24 18:29 Not Given CONSULT PHARMACY [facility] Ondansetron HCl 4 mg 11/19/24 15:28 11/19/24 15:30 Ondansetron 4mg/2ml Vial IV 11/19/24 15:29 4 mg ONCE ONE Administration Rocuronium Munson 60 mg 11/19/24 18:14 11/19/24 17:19 Rocuronium Munson 50mg/5ml Vial IV 11/19/24 18:15 60 mg ONCE ONE Administration Sodium Chloride 3 ml 11/19/24 15:12 Sodium Chloride 3% 15ml Neb IH 12/19/24 15:11 ONCE PRN INDUCE SPUTUM COLLECTION Sodium Chloride 10 ml 11/19/24 17:32 11/19/24 17:33 Sodium Chloride 0.9% 10ml Syr (Rad Only) IV 11/19/24 17:33 10 ml ONCE ONE Administration Sodium Chloride 50 ml 11/19/24 17:32 11/19/24 17:33 0.9 % Sodium Chloride 50 Ml Vial IV 11/19/24 17:33 50 ml ONCE ONE Administration Sodium Zirconium Cyclosilicate 10 gm 11/19/24 16:00 11/19/24 18:31 Lokelma 5gm Packet PO 11/19/24 16:01 Not Given ONCE ONE ORDERS Category Date Time Status CT abdomen pelvis w con Stat Cat Scan 11/19/24 17:[address] angio chest PE protocol Stat Cat Scan 11/19/24 15:56 Completed XR chest portable Stat Exams 11/19/24 14:57 Completed XR chest portable Stat Exams 11/19/24 17:26 Completed BNP [NT Pro Brain Natriuretic Pep.] Stat Lab 11/19/24 15:00 Completed Blood alcohol [Ethyl Alcohol] Stat Lab 11/19/24 15:00 Completed CBC w/Auto Diff [Complete Blood Count Auto Diff] Stat Lab 11/19/24 15:00 Completed CK [Creatine Kinase] Stat Lab 11/19/24 20:03 Completed CMP [Comprehensive Metabolic Panel] Stat Lab 11/19/24 15:00 Completed CRP [C-Reactive Protein] Stat Lab 11/19/24 15:00 Completed D-Dimer Stat Lab 11/19/24 15:00 Completed Full Resp Panel w/COVID ([facility]) Routine Lab 11/19/24 15:00 Completed INR [Prothrombin Time INR] Stat Lab 11/19/24 15:00 Completed Lactic Acid Follow Up (RFLX 1) Stat Lab 11/19/24 19:33 Completed Lactic Acid Follow up (RFLX 2) Stat Lab 11/19/24 21:46 Completed Magnesium Stat Lab 11/19/24 15:00 Completed PTT Heparin (inpatient only) Stat Lab 11/19/24 15:00 Completed Procalcitonin Stat Lab 11/19/24 15:00 Completed Trop I [Troponin I] Stat Lab 11/19/24 15:00 Completed Troponin I Q3H Lab 11/19/24 17:58 Completed Troponin I Q3H Lab 11/19/24 21:16 Completed UA [Urinalysis and Microscopic] Stat Lab 11/19/24 15:56 Completed UDS [Drug Screen,Urine] Stat Lab 11/19/24 15:56 Completed Blood Culture Stat Micro 11/19/24 15:34 Results Sputum Culture & Gram Stain Stat Micro 11/19/24 17:40 Results ABG [Arterial Blood Gas] Stat RT 11/19/24 18:13 Completed ABG [Arterial Blood Gas] Stat RT 11/19/24 20:07 Completed VBG [Venous Blood Gas] Stat RT 11/19/24 14:59 Completed MDM Narrative Medical Decision Narrative: In summary patient is a 54-year-old female who presents to the emergency department for evaluation of chest pain and dyspnea. Patient is hemodynamically unstable upon arrival with a blood pressure 153/129 of pulse of 102 with sinus tachycardia on the bedside monitor tachypneic at 35 with an O2 sat of 30% on room air and patient is cyanotic, hypothermic at 96.2. Physical exam reveals a patient and extremis with central cyanosis increased work of breathing with accessory muscle use diminished breath sounds and expiratory wheezes in all 4 swenson but she is awake and interacting with a Purcell Coma Score 15. Differential diagnosis includes ACS versus cardiogenic shock versus septic shock versus COPD exacerbation etc. Initial workup will be conducted with plain film chest x-ray hematologic labs full respiratory panel VBG twelve-lead EKG. Initial interventions include nonrebreather mask DuoNeb Solu-Medrol continuous cardiac monitoring pulse oximetry supplemental O2. Initial workup reviewed by me and her hematologic labs show a white count of 20.5 hemoglobin hematocrit of 10.1 and 32.4 respectively an absolute neutrophil count of 15.5 and INR of 1.3 a D-dimer of 4.13, VBG of 7.23 pCO2 of 62.0 VBG lactic acid of 6.3, sodium 132 potassium 6.0 anion gap of 19 BUN of 31 creatinine 1.8 GFR of 29 total bilirubin is normal at 1.3 but AST is 4301 ALT is 2066 alk phos is 57 initial troponin is 0.44 CRP is 135.2 NT proBNP is 27,600 procalcitonin is 2.13 and my informal interpretation of her plain film chest x-ray shows a right lower lobe pneumonia. Patient then transitioned into BiPAP, blood cultures sputum cultures have been ordered and patient's been started on initially azithromycin and Rocephin, sepsis bolus has been ordered, patient given aspirin and Plavix, CTA of the chest abdomen pelvis has been ordered.. Upon repeat evaluation patient's blood pressure has been soft and she appears to be mentating well but is still tachypneic tachycardic. We had interactive discussion with the patient regarding her advance directives and she is agreeable to intubation. Patient subsequently electively intubated by Dr. Castillo. Please see his intubation note. CT scan PE protocol then performed and my informal TURB rotation shows significant right-sided pleural effusion along with infiltrates bilaterally prior to radiology read. Patient found to have multiple PEs by radiology with right heart strain. I had interactive discussion with our hospital medicine and given her multi system organ failure severe sepsis it was felt that she would be best served by a multidisciplinary team at a tertiary care facility. Given that I had a direct discussion with [facility] [place] and spoke with Dr. Smith about patient STAPLES management and plan and she has been accepted for further evaluation and care.. I was present during the very beginning of this case when patient arrived and shortly thereafter when handed off to Dr. Prescott. Patient hypoxemic, tachycardic, tachypneic, in obvious respiratory distress. I was consulted by the AISHA, and we discussed the complexity of the problems being addressed. I approved the treatment and management plan for this patient's care in the Emergency Department, thus performing a substantive portion of the initial medical decision making. Trev Montero MD I briefly took over care for patient during which time she remained hemodynamically stable and was rapidly transferred to [facility]. Please see Dr. Montero's and Dr. Castillo's documentation for details of the case. <Kevin Prescott MD - Last Filed: 11/20/24 17:01> Vital Signs Vital Signs: 11/19/24 15:02 11/19/24 15:10 11/19/24 15:10 Temperature 96.2 F L Temperature Source Axillary Pulse Rate 107 H 102 H Pulse Rate [Right] 76 Respiratory Rate 35 H Blood Pressure Blood Pressure [Right Arm] 153/129 H Blood Pressure Mean Blood Pressure Mean [Right Arm] 137 Blood Pressure Source [Right Arm] Automatic Cuff Blood Pressure Position [Right Arm] Supine 02 Sat by Pulse Oximetry 30 L Oxygen Delivery Method Room Air Fraction of Inspired Oxygen 11/19/24 15:30 11/19/24 15:55 11/19/24 16:00 Temperature 98.2 F Temperature Source Pulse Rate 96 H Pulse Rate [Right] Respiratory Rate 19 Blood Pressure 83/41 L Blood Pressure [Right Arm] Blood Pressure Mean Blood Pressure Mean [Right Arm] Blood Pressure Source [Right Arm] Blood Pressure Position [Right Arm] 02 Sat by Pulse Oximetry 83 L Oxygen Delivery Method Fraction of Inspired Oxygen 25 40 11/19/24 16:30 11/19/24 17:00 11/19/24 17:25 Temperature 99.1 F Temperature Source Pulse Rate 91 H Pulse Rate [Right] Respiratory Rate 29 H 17 Blood Pressure 80/51 L 101/68 L 189/162 H Blood Pressure [Right Arm] Blood Pressure Mean 83 166 Blood Pressure Mean [Right Arm] Blood Pressure Source [Right Arm] Blood Pressure Position [Right Arm] 02 Sat by Pulse Oximetry 67 L Oxygen Delivery Method Fraction of Inspired Oxygen 11/19/24 18:00 11/19/24 18:00 11/19/24 18:30 Temperature Temperature Source Pulse Rate 59 L 94 H Pulse Rate [Right] Respiratory Rate 18 Blood Pressure 105/74 L 112/79 Blood Pressure [Right Arm] Blood Pressure Mean 82 88 Blood Pressure Mean [Right Arm] Blood Pressure Source [Right Arm] Blood Pressure Position [Right Arm] 02 Sat by Pulse Oximetry Oxygen Delivery Method Fraction of Inspired Oxygen 50 11/19/24 18:40 11/19/24 19:00 11/19/24 19:30 Temperature 98.6 F 98.6 F Temperature Source Pulse Rate 90 95 H Pulse Rate [Right] Respiratory Rate 18 Blood Pressure 116/77 111/54 L Blood Pressure [Right Arm] Blood Pressure Mean 91 89 Blood Pressure Mean [Right Arm] Blood Pressure Source [Right Arm] Blood Pressure Position [Right Arm] 02 Sat by Pulse Oximetry 98 98 Oxygen Delivery Method Mechanical Ventilation Mechanical Ventilation Fraction of Inspired Oxygen 100 11/19/24 20:00 11/19/24 20:30 11/19/24 20:36 Temperature 98.6 F 98.6 F Temperature Source Pulse Rate Pulse Rate [Right] Respiratory Rate 16 16 18 Blood Pressure 105/71 L 118/72 Blood Pressure [Right Arm] Blood Pressure Mean 80 83 Blood Pressure Mean [Right Arm] Blood Pressure Source [Right Arm] Blood Pressure Position [Right Arm] 02 Sat by Pulse Oximetry 98 98 Oxygen Delivery Method Mechanical Ventilation Mechanical Ventilation Fraction of Inspired Oxygen 60 11/19/24 20:45 11/19/24 21:00 11/19/24 21:06 Temperature 98.8 F 98.8 F 98.8 F Temperature Source Pulse Rate 85 Pulse Rate [Right] Respiratory Rate 18 17 18 Blood Pressure 99/73 L 95/65 L Blood Pressure [Right Arm] Blood Pressure Mean Blood Pressure Mean [Right Arm] Blood Pressure Source [Right Arm] Blood Pressure Position [Right Arm] 02 Sat by Pulse Oximetry 94 L Oxygen Delivery Method Fraction of Inspired Oxygen 11/19/24 21:20 11/19/24 21:30 11/19/24 21:50 Temperature 99.0 F 99.0 F 99.0 F Temperature Source Pulse Rate Pulse Rate [Right] Respiratory Rate 18 18 20 Blood Pressure 91/55 L 112/69 121/74 Blood Pressure [Right Arm] Blood Pressure Mean Blood Pressure Mean [Right Arm] Blood Pressure Source [Right Arm] Blood Pressure Position [Right Arm] 02 Sat by Pulse Oximetry 98 100 Oxygen Delivery Method Fraction of Inspired Oxygen 11/19/24 21:52 11/19/24 22:00 11/19/24 22:15 Temperature 99.0 F 99.1 F Temperature Source Pulse Rate 66 81 Pulse Rate [Right] Respiratory Rate 18 18 18 Blood Pressure 103/73 L 102/69 L Blood Pressure [Right Arm] Blood Pressure Mean Blood Pressure Mean [Right Arm] Blood Pressure Source [Right Arm] Blood Pressure Position [Right Arm] 02 Sat by Pulse Oximetry Oxygen Delivery Method Fraction of Inspired Oxygen 60 11/19/24 22:30 11/19/24 22:45 11/19/24 23:00 Temperature 99.0 F 99.1 F 99.0 F Temperature Source Pulse Rate 61 61 Pulse Rate [Right] Respiratory Rate 18 18 17 Blood Pressure 111/78 95/72 L 114/78 Blood Pressure [Right Arm] Blood Pressure Mean Blood Pressure Mean [Right Arm] Blood Pressure Source [Right Arm] Blood Pressure Position [Right Arm] 02 Sat by Pulse Oximetry Oxygen Delivery Method Fraction of Inspired Oxygen 11/19/24 23:15 11/19/24 23:30 11/19/24 23:34 Temperature 99.1 F 98.8 F Temperature Source Pulse Rate Pulse Rate [Right] Respiratory Rate 18 18 Blood Pressure 128/81 116/78 Blood Pressure [Right Arm] Blood Pressure Mean Blood Pressure Mean [Right Arm] Blood Pressure Source [Right Arm] Blood Pressure Position [Right Arm] 02 Sat by Pulse Oximetry Oxygen Delivery Method Fraction of Inspired Oxygen 60 11/19/24 23:45 11/20/24 00:00 11/20/24 00:15 Temperature 99.0 F 98.8 F 98.8 F Temperature Source Pulse Rate 80 Pulse Rate [Right] Respiratory Rate 19 18 18 Blood Pressure 138/87 122/85 104/74 L Blood Pressure [Right Arm] Blood Pressure Mean Blood Pressure Mean [Right Arm] Blood Pressure Source [Right Arm] Blood Pressure Position [Right Arm] 02 Sat by Pulse Oximetry Oxygen Delivery Method Fraction of Inspired Oxygen 11/20/24 00:30 11/20/24 00:45 11/20/24 01:00 Temperature 98.6 F 98.6 F 98.8 F Temperature Source Pulse Rate 80 Pulse Rate [Right] Respiratory Rate 18 18 18 Blood Pressure 107/70 L 115/81 100/74 L Blood Pressure [Right Arm] Blood Pressure Mean Blood Pressure Mean [Right Arm] Blood Pressure Source [Right Arm] Blood Pressure Position [Right Arm] 02 Sat by Pulse Oximetry 99 99 Oxygen Delivery Method Fraction of Inspired Oxygen 11/20/24 01:56 Temperature 98.8 F Temperature Source Pulse Rate 81 Pulse Rate [Right] Respiratory Rate 18 Blood Pressure 106/67 L Blood Pressure [Right Arm] Blood Pressure Mean Blood Pressure Mean [Right Arm] Blood Pressure Source [Right Arm] Blood Pressure Position [Right Arm] 02 Sat by Pulse Oximetry Oxygen Delivery Method Room Air Fraction of Inspired Oxygen Lab Data Labs: Lab Results 11/19/24 14:59: VBG pH 7.23 L, VBG pCO2 62.0 H, VBG pO2 42.2 H, VBG HCO3 25.1, VBG Total CO2 27.0, VBG O2 Saturation 62.3, VBG Base Excess -2.5 L, VBG Lactic Acid 6.3 H 11/19/24 15:00: WBC 20.5 H*, RBC 3.73 L, Hgb 10.1 L, Hct 32.4 L, MCV 86.9, MCH 27.1, MCHC 31.2 L, RDW 14.8, Plt Count 309, MPV 10.1, Neut % (Auto) 75.4, Lymph % (Auto) 10.6, Polk % (Auto) 13.1 H, Eos % (Auto) 0.0 L, Baso % (Auto) 0.1, Neut # (Auto) 15.5 H, Lymph # (Auto) 2.2, Polk # (Auto) 2.7 H, Eos # (Auto) 0.0, Baso # (Auto) 0.0, Total Counted 100, Neutrophils % (Manual) 81 H, Lymphocytes % (Manual) 14, Monocytes % (Manual) 5, Platelet Estimate Normal, RBC Morphology Normal, PT 14.2 H, INR 1.30 H, APTT 27.9 L, D-Dimer 4.13 H, Sodium 132 L, P otassium 6.0 H, Chloride 92 L, Carbon Dioxide 27, Anion Gap 19.0 H, BUN 31 H, C reatinine 1.80 H, Estimated Creat Clear 25, Estimated GFR 29 L, Est GFR ( Amer) 35 L, Glucose 100, Calcium 8.7, Magnesium 1.8, Total Bilirubin 1.3, AST 4301 H*, ALT 2066 H*, Alkaline Phosphatase 57, Troponin I 0.44 H, C-Reactive Protein 135.2 H, NT-Pro-B Natriuret Pep 67245 H, Total Protein 6.4, Albumin 3.6, Globulin 2.8, Albumin/Globulin Ratio 1.3, Procalcitonin 2.13 H, Plasma/Serum Alcohol < 10, Chlamy pneumoniae PCR Not detected, Adenovirus (PCR) Not detected, B. pertussis DNA (PCR) Not detected, Coronavirus OC43 (PCR) Not detected, Coronavirus HKU1 (PCR) Not detected, Coronavirus 229E (PCR) Not detected, SARS-CoV-2 (PCR) Not detected, Coronavirus NL63 (PCR) Not detected, Human Metapneumovir PCR Not detected, Influenza A (H1) PCR Not detected, Influ A (H1N1/09) PCR Not detected, Influenza A (H3) PCR Not detected, Influenza Type A (PCR) Not detected, Influenza Type B (PCR) Not detected, M. pneumoniae (PCR) Not detected, Parainfluenza 1 (PCR) Not detected, Parainfluenza 2 (PCR) Not detected, Parainfluenza 3 (PCR) Not detected, Parainfluenza 4 (PCR) Not detected, RSV (PCR) Not detected, Entero/Rhino (PCR) Not detected 11/19/24 15:56: Urine Color Yellow, Urine Appearance Clear, Urine pH 5.5, Ur Specific Atkinson 1.025, Urine Protein Trace, Urine Glucose (UA) Negative, Urine Ketones Negative, Urine Blood Negative, Urine Nitrate Negative, Urine Bilirubin Negative, Urine Urobilinogen 0.2, Ur Leukocyte Esterase Negative, Urine RBC None, Urine WBC 3-5, Ur Squamous Epith Cells 3-5, Urine Bacteria Trace, Urine Mucus 2+, Urine Opiates Screen Positive H, Urine Methadone Screen Negative, Ur Barbituates Screen Negative, Ur Phencyclidine Scrn Negative, Ur Amphetamines Screen Negative, U Benzodiazepines Scrn Positive H, Urine Cocaine Screen Negative, U Marijuana (THC) Screen Positive H 11/19/24 17:58: Troponin I 0.63 H 11/19/24 18:13: Specimen Source Right radial, O2 % 50, ABG pH 7.19 L*, ABG pCO2 46.7 H, ABG pO2 61.2 L, ABG HCO3 17.6 L, ABG Total CO2 19.0 L, ABG O2 Saturation 82 L*, ABG Base Excess -10.5 L, Tong Test Art line, Vent Rate 18, Tidal Volume 400, PEEP 5 11/19/24 19:33: Lactate 6.3 H 11/19/24 20:03: Total Creatine Kinase 74 11/19/24 20:07: Specimen Source Art line, O2 % 100, ABG pH 7.28 L, ABG pCO2 46.1 H, ABG pO2 315.1 H, ABG HCO3 21.1 L, ABG Total CO2 22.5 L, ABG O2 Saturation 100, ABG Base Excess -5.7 L, Tong Test Non applicable, Vent Rate 18, Tidal Volume 400, PEEP 5 11/19/24 21:16: Troponin I 0.78 H 11/19/24 21:46: Lactate 4.1 H Response Orders (Tests/Meds): ED MEDICATIONS Discontinued Medications Generic Name Dose Route Start Last Admin Trade Name Freq PRN Reason Stop Dose Admin Albuterol/Ipratropium 9 ml 11/19/24 14:57 11/19/24 15:25 Ipratropium/Albuterol 3 Ml Neb IH 11/19/24 14:58 9 ml ONCE ONE Administration Aspirin 325 mg 11/19/24 15:57 11/19/24 18:31 Aspirin 325mg Tablet PO 11/19/24 15:58 Not Given ONCE ONE Clopidogrel Bisulfate 300 mg 11/19/24 15:57 11/19/24 18:31 Clopidogrel 300mg Tablet PO 11/19/24 15:58 Not Given ONCE ONE Dextrose 50 ml 11/19/24 15:59 11/19/24 18:31 Dextrose 50% 50ml Syringe (Crash Cart) IVP 11/19/24 16:00 Not Given ONCE ONE Etomidate 10 mg 11/19/24 18:15 11/19/24 17:19 Etomidate 40mg/20ml Vial IV 11/19/24 18:16 10 mg ONCE ONE Administration Heparin Sodium (Porcine) 3,600 unit 11/19/24 18:45 11/19/24 18:57 Heparin Sodium 5,000 Unit/Ml Vial IV 11/19/24 18:46 3,600 unit ONCE ONE Administration Magnesium Sulfate 2 gm in 50 mls @ 50 mls/hr 11/19/24 14:57 11/19/24 15:11 Magnesium Sulfate 2gm/50ml Premix IV 11/19/24 15:56 50 mls/hr ONCE ONE Administration Ceftriaxone Sodium 1 gm/ 50 mls @ 100 mls/hr 11/19/24 15:30 11/19/24 15:36 Sodium Chloride IV 11/29/24 15:29 100 mls/hr Q24H SUZY Administration Azithromycin 500 mg/ Sodium 250 mls @ 250 mls/hr 11/19/24 15:30 11/19/24 15:36 Chloride IV 11/29/24 15:29 250 mls/hr Q24H SUZY Administration Sodium Chloride 1,640 mls @ 820 mls/hr 11/19/24 15:21 11/19/24 15:32 Sod Chlor 0.9% 1000ml Bag 30 ml/kg infuse over 2 hr (1640 ml) 11/19/24 17:20 820 mls/hr IV Administration .Q2H ONE Norepinephrine/Dextrose 8 mg in 250 mls @ 3.75 mls/hr 11/19/24 16:30 11/19/24 23:13 Levophed 8mg/250ml-D5w Premix IV 12/19/24 16:29 2 mcg/min .Q24H SUZY 3.75 mls/hr Infusion Protocol 2 MCG/MIN Vancomycin HCl 1,000 mg/ 250 mls @ 125 mls/hr 11/19/24 18:30 11/19/24 19:35 Sodium Chloride IV 11/19/24 20:29 125 mls/hr ONCE ONE Administration Heparin Sodium/Dextrose 500 mls @ 16 mls/hr 11/19/24 18:45 11/19/24 19:24 Heparin 25,000 Units In D5w 500ml Premix IV 12/19/24 18:44 16 mls/hr .Q25H SUZY Administration 800 UNITS/HR Piperacillin Sod/Tazobactam 50 mls @ 100 mls/hr 11/19/24 18:53 11/19/24 19:00 Sod 3.375 gm/ Sodium Chloride IV 11/19/24 19:22 100 mls/hr ONCE ONE Administration Propofol 100 mls @ 1.347 mls/hr 11/19/24 18:59 11/19/24 23:10 Diprivan 10mg/Ml 100ml Bottle IV 12/19/24 18:58 20 mcg/kg/min .Q24H SUZY 5.39 mls/hr Titration Protocol 5 MCG/KG/MIN Lactated Ringer's 1,000 mls @ 999 mls/hr 11/19/24 22:19 11/19/24 22:22 Lactated Ringer's 1000 Ml Bag IV 11/19/24 23:19 999 mls/hr .Q1H1M ONE Administration Insulin Human Regular 10 unit 11/19/24 15:59 11/19/24 18:31 Insulin Human Regular 100 Units/Ml 10ml Vial IVP 11/19/24 16:00 Not Given ONCE ONE Iopamidol 85 ml 11/19/24 17:32 11/19/24 17:33 Iopamidol-370 (76%);100ml Bottle IV 11/19/24 17:33 85 ml ONCE ONE Administration Methylprednisolone Sodium Succinate 125 mg 11/19/24 14:57 11/19/24 15:11 Methylprednisolone Sod Succ 125mg Vial IV 11/19/24 14:58 125 mg ONCE ONE Administration Miscellaneous 1 each 11/19/24 18:30 11/19/24 19:18 Vancomycin Consult Request NOTAPPLIC 12/19/24 18:29 Not Given CONSULT PHARM[facility]Y [facility] Miscellaneous 1 each 11/19/24 18:30 11/19/24 19:49 Heparin Drip Consult NOTAPPLIC 12/19/24 18:29 Not Given CONSULT [facility] Ondansetron HCl 4 mg 11/19/24 15:28 11/19/24 15:30 Ondansetron 4mg/2ml Vial IV 11/19/24 15:29 4 mg ONCE ONE Administration Rocuronium Munson 60 mg 11/19/24 18:14 11/19/24 17:19 Rocuronium Munson 50mg/5ml Vial IV 11/19/24 18:15 60 mg ONCE ONE Administration Sodium Chloride 3 ml 11/19/24 15:12 Sodium Chloride 3% 15ml Neb IH 12/19/24 15:11 ONCE PRN INDUCE SPUTUM COLLECTION Sodium Chloride 10 ml 11/19/24 17:32 11/19/24 17:33 Sodium Chloride 0.9% 10ml Syr (Rad Only) IV 11/19/24 17:33 10 ml ONCE ONE Administration Sodium Chloride 50 ml 11/19/24 17:32 11/19/24 17:33 0.9 % Sodium Chloride 50 Ml Vial IV 11/19/24 17:33 50 ml ONCE ONE Administration Sodium Zirconium Cyclosilicate 10 gm 11/19/24 16:00 11/19/24 18:31 Lokelma 5gm Packet PO 11/19/24 16:01 Not Given ONCE ONE ORDERS Category Date Time Status CT abdomen pelvis w con Stat Cat Scan 11/19/24 17:[address] angio chest PE protocol Stat Cat Scan 11/19/24 15:56 Completed XR chest portable Stat Exams 11/19/24 14:57 Completed XR chest portable Stat Exams 11/19/24 17:26 Completed BNP [NT Pro Brain Natriuretic Pep.] Stat Lab 11/19/24 15:00 Completed Blood alcohol [Ethyl Alcohol] Stat Lab 11/19/24 15:00 Completed CBC w/Auto Diff [Complete Blood Count Auto Diff] Stat Lab 11/19/24 15:00 Completed CK [Creatine Kinase] Stat Lab 11/19/24 20:03 Completed CMP [Comprehensive Metabolic Panel] Stat Lab 11/19/24 15:00 Completed CRP [C-Reactive Protein] Stat Lab 11/19/24 15:00 Completed D-Dimer Stat Lab 11/19/24 15:00 Completed Full Resp Panel w/COVID ([facility]) Routine Lab 11/19/24 15:00 Completed INR [Prothrombin Time INR] Stat Lab 11/19/24 15:00 Completed Lactic Acid Follow Up (RFLX 1) Stat Lab 11/19/24 19:33 Completed Lactic Acid Follow up (RFLX 2) Stat Lab 11/19/24 21:46 Completed Magnesium Stat Lab 11/19/24 15:00 Completed PTT Heparin (inpatient only) Stat Lab 11/19/24 15:00 Completed Procalcitonin Stat Lab 11/19/24 15:00 Completed Trop I [Troponin I] Stat Lab 11/19/24 15:00 Completed Troponin I Q3H Lab 11/19/24 17:58 Completed Troponin I Q3H Lab 11/19/24 21:16 Completed UA [Urinalysis and Microscopic] Stat Lab 11/19/24 15:56 Completed UDS [Drug Screen,Urine] Stat Lab 11/19/24 15:56 Completed Blood Culture Stat Micro 11/19/24 15:34 Results Sputum Culture & Gram Stain Stat Micro 11/19/24 17:40 Results ABG [Arterial Blood Gas] Stat RT 11/19/24 18:13 Completed ABG [Arterial Blood Gas] Stat RT 11/19/24 20:07 Completed VBG [Venous Blood Gas] Stat RT 11/19/24 14:59 Completed MDM Narrative Medical Decision Narrative: In summary patient is a 54-year-old female who presents to the emergency department for evaluation of chest pain and dyspnea. Patient is hemodynamically unstable upon arrival with a blood pressure 153/129 of pulse of 102 with sinus tachycardia on the bedside monitor tachypneic at 35 with an O2 sat of 30% on room air and patient is cyanotic, hypothermic at 96.2. Physical exam reveals a patient and extremis with central cyanosis increased work of breathing with accessory muscle use diminished breath sounds and expiratory wheezes in all 4 swenson but she is awake and interacting with a Purcell Coma Score 15. Differential diagnosis includes ACS versus cardiogenic shock versus septic shock versus COPD exacerbation etc. Initial workup will be conducted with plain film chest x-ray hematologic labs full respiratory panel VBG twelve-lead EKG. Initial interventions include nonrebreather mask DuoNeb Solu-Medrol continuous cardiac monitoring pulse oximetry supplemental O2. Initial workup reviewed by me and her hematologic labs show a white count of 20.5 hemoglobin hematocrit of 10.1 and 32.4 respectively an absolute neutrophil count of 15.5 and INR of 1.3 a D-dimer of 4.13, VBG of 7.23 pCO2 of 62.0 VBG lactic acid of 6.3, sodium 132 potassium 6.0 anion gap of 19 BUN of 31 creatinine 1.8 GFR of 29 total bilirubin is normal at 1.3 but AST is 4301 ALT is 2066 alk phos is 57 initial troponin is 0.44 CRP is 135.2 NT proBNP is 27,600 procalcitonin is 2.13 and my informal interpretation of her plain film chest x-ray shows a right lower lobe pneumonia. Patient then transitioned into BiPAP, blood cultures sputum cultures have been ordered and patient's been started on initially azithromycin and Rocephin, sepsis bolus has been ordered, patient given aspirin and Plavix, CTA of the chest abdomen pelvis has been ordered.. Upon repeat evaluation patient's blood pressure has been soft and she appears to be mentating well but is still tachypneic tachycardic. We had interactive discussion with the patient regarding her advance directives and she is agreeable to intubation. Patient subsequently electively intubated by Dr. Castillo. Please see his intubation note. CT scan PE protocol then performed and my informal TURB rotation shows significant right-sided pleural effusion along with infiltrates bilaterally prior to radiology read. Patient found to have multiple PEs by radiology with right heart strain. I had interactive discussion with our hospital medicine and given her multi system organ failure severe sepsis it was felt that she would be best served by a multidisciplinary team at a tertiary care facility. Given that I had a direct discussion with [facility] and spoke with Dr. Smith about patient STAPLES management and plan and she has been accepted for further evaluation and care.. Kevin Prescott MD BELIA: I was present during the very beginning of this case when patient arrived and shortly thereafter when handed off to Dr. Prescott. Patient hypoxemic, tachycardic, tachypneic, in obvious respiratory distress. I was consulted by the AISHA, and we discussed the complexity of the problems being addressed. I approved the treatment and management plan for this patient's care in the Emergency Department, thus performing a substantive portion of the initial medical decision making. MD Kevin Walker MD MBA: I assumed care of this patient with ongoing management in junction with the AISHA. The patient was signed out to me after plan for transfer to [facility]. I was informed that a bed was being cleaned, however after several hours and repeat phone calls, I felt the best course of management for this patient to expeditiously receive a higher resource level of care would be to pursue options elsewhere. Ultimately, patient was accepted for transfer to [facility]. I briefly took over care for patient during which time she remained hemodynamically stable and was rapidly transferred to [facility]. Please see Dr. Montero's and Dr. Castillo's documentation for details of the case.
--- NOTE | 2024-11-19 15:02 | PC.NURSE ---
PT ARRIVES VIA WC FOR SOA AND CHEST PAIN. PLACED ON MONITOR, O2 SAT 30'S ON ROOM AIR, PT PLACED ON NRB AT 15/L. PT HAS HOME O2 AT 2L/NC BUT DOES NOT WEAR
[2024-11-19 15:08] LABS: Adenovirus,PCR Not Detected (NotDetected); Bordetella Pertussis Not Detected (NotDetected); Chlamydophila Pneumoniae, PCR Not Detected (NotDetected); Coronavirus 19, PCR Not Detected (NotDetected); Coronavirus 229E Not Detected (NotDetected); Coronavirus NL63 Not Detected (NotDetected); Coronavirus OC43 Not Detected (NotDetected); Coronovirus HKU1,PCR Not Detected (NotDetected); Human Metapneumovirus Not Detected (NotDetected); Influenza A, PCR Not Detected (NotDetected); Influenza AH1, 2009 Not Detected (NotDetected); Influenza AH1, PCR Not Detected (NotDetected); Influenza AH3,PCR Not Detected (NotDetected); Influenza B, PCR Not Detected (NotDetected); Mycoplasma Pneumoniae, PCR Not Detected (NotDetected); Parainfluenza 1, PCR Not Detected (NotDetected); Parainfluenza 2, PCR Not Detected (NotDetected); Parainfluenza 3, PCR Not Detected (NotDetected); Parainfluenza 4, PCR Not Detected (NotDetected); Respiratory Syncytial Virus Not Detected (NotDetected); Rhinovirus/Enterovirus Not Detected (NotDetected)
[2024-11-19 15:11] LABS: Basophils % 0.1 % (0.1-2.0); Hematocrit 32.4 % (37.0-47.0); Hemoglobin 10.1 g/dL (12.2-16.2); Lymphocytes # 2.2 K/mm3 (0.7-4.5); Lymphocytes % 10.6 % (10-50); Mean Corpuscular HGB Conc 31.2 g/dL (31.8-35.4); Mean Corpuscular Hemoglobin 27.1 pg (27.0-31.2); Mean Corpuscular Volume 86.9 fl (81-99); Mean Platelet Volume 10.1 fl (7.4-10.4); Monocytes # 2.7 K/mm3 (0.1-1.0); Monocytes % 13.1 % (1.7-9.3); Neutrophils # 15.5 K/mm3 (1.8-7.8); Neutrophils % 75.4 % (37.0-80.0); Platelet Count 309 K/mm3 (142-424); Red Blood Count 3.73 M/mm3 (4.20-5.40); Red Cell Distribution Width 14.8 % (11.5-17.5); White Blood Count 20.5 K/mm3 (4.8-10.8)
[2024-11-19] MEDS: METHYLPREDNISOLONE SOD SUCC 125MG VIAL 125 MG IV (15:11)
[2024-11-19] MEDS: MAGNESIUM SULFATE IN WATER 2 GM/50 ML PIGGYBACK IV (15:11)
[2024-11-19 15:12] LABS: MANUAL DIFFERENTIAL MANUAL DIFFERENTIAL (MANUAL DIFF)
[2024-11-19 15:17] LABS: VBG Base Excess -2.5 mmol/L (-2.4-2.3); VBG HCO3 25.1 mmol/L (23-30); VBG Oxygen Saturation 62.3 % (50-70); VBG PH 7.23 mmol/L (7.31-7.41); VBG PO2 42.2 mmol/L (28-40)
--- NOTE | 2024-11-19 15:19 | PC.NURSE ---
CRITICAL VBG RESULTS REPORTED TO AMARI
[2024-11-19 15:20] LABS: Lactate Venous 6.3 mmol/L (0.4-2.0)
--- NOTE | 2024-11-19 15:22 | PC.NURSE ---
RESPIRATORY NOTIFIED OF BI-PAP ORDER
[2024-11-19 15:24] LABS: Prothrombin Time 14.2 seconds (10.1-12.5)
[2024-11-19] MEDS: IPRATROPIUM/ALBUTEROL 3 ML NEB 9 ML IH (15:25)
[2024-11-19 15:29] LABS: Albumin Level 3.6 g/dl (3.5-5.0); Albumin/Globulin Ratio 1.3 (1.1-1.8); Alkaline Phosphatase 57 U/L (38-126); Bilirubin,Total 1.3 mg/dl (0.2-1.3); Blood Urea Nitrogen 31 mg/dl (7-17); Calcium 8.7 mg/dl (8.4-10.2); Carbon Dioxide 27 mmol/L (22.0-30.0); Chloride 92 mmol/L (98-107); Creatinine Clearance Estimated 25 mL/min (50-200); Estimated Glomerular Filt Rate 29 ml/min (>60); GFR (African American) 35 ML/MIN (>60); Globulin 2.8 g/dL (1.3-3.2); Glucose 100 mg/dl (74-100); Magnesium 1.8 mg/dl (1.6-2.3); Sodium 132 mmol/L (136-145); Total Protein,Serum 6.4 g/dl (6.3-8.2)
[2024-11-19] MEDS: ONDANSETRON 4MG/2ML VIAL 4 MG IV (15:30)
--- NOTE | 2024-11-19 15:30 | PC.NURSE ---
RESPIRATORY AT BEDSIDE TO PLACE PT ON BI-PAP
[2024-11-19] MEDS: 0.9 % SODIUM CHLORIDE 1000ML 1,640 ML 820 ML IV (15:32)
[2024-11-19 15:34] LABS: C-Reactive Protein 135.2 mg/L (0-4)
[2024-11-19] MEDS: AZITHROMYCIN 500 MG in 0.9 % SODIUM CHLORIDE 250 ML 250 MG IV (15:36)
[2024-11-19] MEDS: CEFTRIAXONE 1 GM 1 GM in 0.9 % SODIUM CHLORIDE 50 ML IV (15:36)
[2024-11-19 15:37] LABS: Lymphocytes % 14 % (10-50); Monocytes % 5 % (2-9); Neutrophils % 81 % (42-76); Platelet Estimate Normal; RBC Morphology Normal; Total Cells Counted 100
[2024-11-19 15:43] LABS: NT Pro Brain Natriuretic Pep. 27600 pg/mL (0-125)
[2024-11-19 15:47] LABS: D-Dimer 4.13 ug/mL (0.0-0.5); Troponin I 0.44 ng/ml (0.00-0.034)
[2024-11-19 15:48] LABS: Alanine Aminotransferase 2066 U/L (12-78); Procalcitonin 2.13 ng/mL (0.0-2.0)
--- NOTE | 2024-11-19 15:48 | PC.NURSE ---
[facility] Campo notified of K+ 6.0 and troponin 0.44.
--- NOTE | 2024-11-19 15:56 | CT_ITS ---
PROCEDURE INFORMATION: Exam: CTA Chest With Contrast Exam date and time: 11/19/2024 5:30 PM Age: 54 years old Clinical indication: Other: Acute on chronic respiratory failure, sepsis; Additional info: Acute on chronic respiratory failure, sepsis, intubated TECHNIQUE: Imaging protocol: Computed tomographic angiography of the chest with contrast. Exam focused on the arteries. 3D rendering (Not supervised by radiologist): MIP and/or 3D reconstructed images were created by the technologist. Radiation optimization: All CT scans at this facility use at least one of these dose optimization techniques: automated exposure control; mA and/or kV adjustment per patient size (includes targeted exams where dose is matched to clinical indication); or iterative reconstruction. Contrast material: ISOVUE 370; Contrast volume: 85 ml; Contrast route: INTRAVENOUS (IV); COMPARISON: CT CHEST WO CON 05/11/2023 10:14 AM FINDINGS: Tubes, catheters and devices: Endotracheal tube tip is 2.3 cm above the cesar. Pulmonary arteries: Nonocclusive filling defects within the right lower lobe segmental pulmonary artery. Subsegmental occlusive filling defects in the distal left lower lobe pulmonary arteries. The pulmonary arteries are normal in course and caliber. Aorta: Mild diffuse calcific atherosclerosis of the aorta. No aortic aneurysm. Flow and mixing artifact is present in the descending thoracic aorta and proximal SMA. Thyroid: The thyroid gland is normal. Lungs: Stable rim calcified right apical bulla with severe surrounding paraseptal emphysema. Severe centrilobular emphysema. Mosaic attenuation of the lung parenchyma, seen with chronic small airways disease/air trapping. Bilateral bronchial wall thickening. Patchy and ground-glass consolidations in the right middle lobe and right lower lobe. Air trapping throughout the right upper lobe. Linear atelectasis in the bilateral lung bases. Pleural spaces: There is a moderately sized layering right pleural effusion. No left pleural effusion. There is no evidence of pneumothorax. Heart: Enlargement of the right heart chambers. Trace and likely physiologic pericardial effusion. Heart RV/LV ratio: 1.3. Mediastinal space: The mediastinal contour is normal. Lymph nodes: There is no evidence of lymphadenopathy. Liver: Slightly nodular liver contour, concerning for early hepatocellular disease. Correlation with pertinent labs is recommended. Spleen: The spleen demonstrates punctate calcifications, consistent with remote granulomatous organism exposure. Intraperitoneal space: Trace upper abdominal ascites. Bones/joints: Mild multilevel degenerative changes of the spine. No acute skeletal abnormality or aggressive osseous lesion. Soft tissues: Moderate body wall edema. IMPRESSION: 1. Acute nonocclusive segmental right lower lobe and subsegmental occlusive left lower lobe pulmonary emboli. 2. Evidence for right heart strain. Though considering the small degree of pulmonary embolic burden, I suspect that this may be related to chronic right heart chamber enlargement. Consider correlation with echocardiography. 3. Acute/chronic bronchitis or reactive airways disease. 4. Patchy and ground-glass consolidations in the right middle lobe and right lower lobe. Favoring pneumonia. 5. Moderate volume overload (moderate layering right pleural effusion, trace upper abdominal ascites, and moderate body wall edema). 6. Incidental findings as above. COMMENTS: 1. THIS REPORT CONTAINS FINDINGS THAT MAY BE CRITICAL TO PATIENT CARE. The findings were verbally communicated via telephone conference with SHERI Raymundo at 6:02 PM EDT on 11/19/2024. The findings were acknowledged and understood. 2. The presence of pulmonary emphysema on CT is an independent risk factor for lung cancer. In the absence of a history or active diagnosis of lung cancer, it is recommended that this patient with emphysema be evaluated for enrollment in a low dose CT lung cancer screening program.
--- NOTE | 2024-11-19 16:06 | HMH.ITSTN ---
per rn mary, needing pts pressure to come up a little, will call when ready
[2024-11-19 16:07] LABS: Ethyl Alcohol < 10 mg/dl (0-10)
[2024-11-19 16:17] LABS: Barbiturates Screen,Urine Negative ng/ml (<200)
[2024-11-19 16:18] LABS: Amphetamine/Metha Screen,Urine Negative ng/ml (<1000); Benzodiazepines Screen,Urine Positive ng/ml (<200)
[2024-11-19 16:19] LABS: Cocaine Screen,Urine Negative ng/ml (<300); Methadone Screen,Urine Negative ng/ml (<300)
[2024-11-19 16:20] LABS: Cannabinoid Screen,Urine Positive ng/ml (<50)
[2024-11-19 16:21] LABS: Opiate Screen,Urine Positive ng/ml (<300); Phencyclidine Screen,Urine Negative ng/ml (<25)
--- NOTE | 2024-11-19 16:42 | PC.NURSE ---
MALT HOUSE OPERATOR questioned ER pa if patient needs to get all of fluid bolus after seeing patient BNP result and ER PA said yes
[2024-11-19 16:48] LABS: Aspartate Amino Transferase 4301 U/L (14-36)
--- NOTE | 2024-11-19 17:14 | CT_ITS ---
PROCEDURE INFORMATION: Exam: CT Abdomen And Pelvis With Contrast Exam date and time: 11/19/2024 5:30 PM Age: 54 years old Clinical indication: Other: Acute on chronic respiratory failure, sepsis; Additional info: Septic shock respiratory failure TECHNIQUE: Imaging protocol: Computed tomography of the abdomen and pelvis with contrast. 3D rendering (Not supervised by radiologist): MIP and/or 3D reconstructed images were created by the technologist. Radiation optimization: All CT scans at this facility use at least one of these dose optimization techniques: automated exposure control; mA and/or kV adjustment per patient size (includes targeted exams where dose is matched to clinical indication); or iterative reconstruction. Contrast material: ISOVUE; Contrast volume: 85 ml; Contrast route: IV; COMPARISON: CT ABDOMEN PELVIS WO CON 04/09/2020 5:06 PM FINDINGS: Lungs: Moderate right basilar pleural effusion is present. Compressive atelectasis of the right lung base. Right middle lobe and right lower lobe airspace opacities favoring pneumonia in the setting of infection. Esophagus: Moderate thickening of the lower esophagus may represent esophagitis versus reflux. Liver: Diffuse hyperenhancement of the liver, and small bowel mucosa with edema can be seen with shock. Gallbladder and biliary ducts: Diffuse thickening of the gallbladder wall measuring up to 9.2 mm, differential includes chronic cholecystitis, wall thickening due to systemic disease versus diffuse adenomyomatosis. Pancreas: Normal. No ductal dilation. Spleen: Multiple benign-appearing calcific densities of the spleen. Adrenal glands: Normal. No mass. Kidneys and ureters: Bilateral subcentimeter renal cysts too small to characterize, likely benign. No follow-up recommended. Stomach and bowel: See Liver finding. Appendix: No evidence of appendicitis. Intraperitoneal space: Low volume ascites throughout the abdomen. Vasculature: Moderate calcific atherosclerotic disease of the abdominal aorta without aneurysmal dilatation is present. Lymph nodes: Unremarkable. No enlarged lymph nodes. Urinary bladder: Alegre catheter terminates within the bladder. Reproductive: Unremarkable as visualized. Bones/joints: Unremarkable. No acute fracture. Soft tissues: Metallic foreign body measuring 10 mm within the right gluteus. IMPRESSION: 1. Moderate right basilar pleural effusion with compressive atelectasis. 2. Right middle lobe and right lower lobe airspace opacities favoring pneumonia in the setting of infection. Recommend continued follow-up imaging to document resolution after treatment. 3. Diffuse hyperenhancement of the liver, and small bowel mucosa with edema can be seen with shock. 4. Diffuse thickening of the gallbladder wall measuring up to 9.2 mm, differential includes chronic cholecystitis, wall thickening due to systemic disease versus diffuse adenomyomatosis. 5. Moderate thickening of the lower esophagus may represent esophagitis versus reflux. COMMENTS: Consistent with the [employer]'s Incidental Findings Committee white paper (J Am Gurpreet Radiol 2018): Any incidental renal lesion less than 1 cm or classified as too small to characterize, or any incidental cystic renal lesion characterized as simple-appearing, is likely benign. No follow-up imaging is recommended for these lesions per consensus recommendations based on imaging criteria.
--- NOTE | 2024-11-19 17:15 | PC.NURSE ---
pt gave verbal consent to intubate and family gave consent as well
[2024-11-19] MEDS: ROCURONIUM BROMIDE 50MG/5ML VIAL 60 MG IV (17:19)
[2024-11-19] MEDS: ETOMIDATE 40MG/20ML VIAL 10 MG IV (17:19)
--- NOTE | 2024-11-19 17:26 | XR_ITS ---
PROCEDURE INFORMATION: Exam: XR Chest Exam date and time: 11/19/2024 5:24 PM Age: 54 years old Clinical indication: Device placement; Ett placement (vent status); Additional info: Post intubation TECHNIQUE: Imaging protocol: Radiologic exam of the chest. Views: 1 view. COMPARISON: CR XR CHEST PORTABLE 11/19/2024 3:04 PM FINDINGS: Tubes, catheters and devices: Endotracheal tube terminates 1.3 cm from the cesar. Lungs: Right basilar opacities partially silhouette the diaphragm are favored to represent combination of atelectasis/pleural effusion/consolidation. Pleural spaces: See Lungs finding. Heart/Mediastinum: Unremarkable. No cardiomegaly. Bones/joints: Unremarkable. IMPRESSION: 1. Right basilar opacities partially silhouette the diaphragm are favored to represent combination of atelectasis/pleural effusion/consolidation. 2. Endotracheal tube terminates 1.3 cm from the cesar.
[2024-11-19] MEDS: 0.9 % SODIUM CHLORIDE 50 ML VIAL IV (17:33)
[2024-11-19] MEDS: SODIUM CHLORIDE 0.9% 10ML SYR (RAD ONLY) 10 ML IV (17:33)
[2024-11-19] MEDS: IOPAMIDOL-370 (76%);100ML BOTTLE 85 ML IV (17:33)
--- NOTE | 2024-11-19 18:01 | PC.NURSE ---
Called per [facility] to speak with them about transferring this pt to them for septic shock,Resp Failure, Pneumonia, and Pulmonary Emboli. advised that they would call aimee
--- NOTE | 2024-11-19 18:12 | PC.NURSE ---
[facility] called and Dr Smith is speaking with [facility] at this time.
--- NOTE | 2024-11-19 18:13 | PC.NURSE ---
1719-Etomidate 10mg given 1719- Rocc 60mg given 1721 intubated 7.5 ett 22 at the [facility]
[2024-11-19 18:14] LABS: ABG Base Excess -10.5 mmol/L (-2.4-2.3); ABG HCO3 17.6 mmhg (22.0-26.0); ABG Oxygen Saturation 82 % (90-100); ABG PCO2 46.7 mmhg (35.0-45.0); ABG PO2 61.2 mmhg (80-100)
[2024-11-19 18:15] LABS: Oxygen 50 %; PEEP 5; Source Right Radial; Tidal Volume 400; Vent Rate 18
[2024-11-19 18:16] LABS: Allen's Test ART LINE
[2024-11-19 18:17] LABS: ABG PH 7.19 mmol/L (7.35-7.45)
--- NOTE | 2024-11-19 18:18 | PC.NURSE ---
VBG results given to Dr. Prescott.
[2024-11-19 18:37] LABS: PTT Heparin (inpatient only) 27.9 Seconds (50-75)
--- NOTE | 2024-11-19 18:38 | PC.NURSE ---
Dr. Prescott notified of PTT of 27.9.
--- NOTE | 2024-11-19 18:44 | PC.NURSE ---
placed 14fr og tube at 55 at the lip and taped to ET tube
[2024-11-19 18:51] LABS: Troponin I 0.63 ng/ml (0.00-0.034)
[2024-11-19] MEDS: HEPARIN SODIUM 5,000 UNIT/ML VIAL 3600 UNIT IV (18:57)
[2024-11-19] MEDS: PIPERACILLIN/TAZO 3.375 GM in 0.9 % SODIUM CHLORIDE 50 ML IV (19:00)
[2024-11-19 19:18] LABS: Reflex Lactic Add Lactic Reflex
[2024-11-19] MEDS: HEPARIN SODIUM,PORCINE/D5W 500 ML 16 UNIT IV (19:24)
[2024-11-19] MEDS: VANCOMYCIN HCL 1,000 MG in 0.9 % SODIUM CHLORIDE 250 ML 125 MG IV (19:35)
--- NOTE | 2024-11-19 19:36 | PC.NURSE ---
spoke with still working on a bed assignment, [facility] on standby. restaurant shift supervisor supervising airplane pilot aware of pending flight
--- NOTE | 2024-11-19 19:50 | PC.NURSE ---
20G USG IV inserted to R upper arm
--- NOTE | 2024-11-19 20:06 | PC.NURSE ---
spoke with again at this time, still no bed available at this time
[2024-11-19 20:08] LABS: ABG Base Excess -5.7 mmol/L (-2.4-2.3); ABG HCO3 21.1 mmhg (22.0-26.0); ABG Oxygen Saturation 100 % (90-100); ABG PCO2 46.1 mmhg (35.0-45.0); ABG PH 7.28 mmol/L (7.35-7.45); ABG PO2 315.1 mmhg (80-100); ABG TCO2 22.5 mmhg (23-27)
[2024-11-19 20:09] LABS: Allen's Test Non Applicable; Oxygen 100 %; PEEP 5; Source ART LINE; Tidal Volume 400; Vent Rate 18
[2024-11-19] MEDS: propofoL 100 ML 1.35 MG IV (20:17)
[2024-11-19 20:19] LABS: Lactic Acid Follow Up (RFLX 1) 6.3 mmol/L (0.7-2.1)
--- NOTE | 2024-11-19 20:19 | PC.NURSE ---
Dr. Prescott notified of critical lactic 6.3.
[2024-11-19 20:24] LABS: Creatine Kinase 74 U/L (30-135)
--- NOTE | 2024-11-19 20:38 | PC.NURSE ---
spoke with [facility] again, no bed available still at this time
--- NOTE | 2024-11-19 21:08 | PC.NURSE ---
[facility] called said they had to take pt off standby since it had been over 45 minutes
--- NOTE | 2024-11-19 21:19 | PC.NURSE ---
Called [facility] for an update. No update at this time
[2024-11-19] MEDS: NOREPINEPHRINE BITARTRATE/D5W 8 MG/250 ML PLAST..BAG 3.75 MG IV (21:20)
--- NOTE | 2024-11-19 21:21 | PC.NURSE ---
spoke with [facility] again at this time, bed still currently unavailable
[2024-11-19 21:36] LABS: Reflex Lactic (2 hrs) Add Lactic Reflex
[2024-11-19 21:40] LABS: Microscopic, Urine URINE MICROSCOPIC (MICROSCOPIC)
[2024-11-19 21:42] LABS: Appearance,Urine CLEAR (Clear); Bilirubin,Urine Negative (Negative); Blood, Urine Negative (Negative); Color,Urine YELLOW (Yellow); Glucose,Urine (UA) Negative (Negative); Ketones,Urine Negative (Negative); Leukocyte Esterase,Urine Negative (Negative); Nitrate,Urine Negative (Negative); PH,Urine 5.5 (5.0-8.5); Protein,Urine TRACE (Negative); Specific Gravity, Urine 1.025 (1.005-1.030); Urobilinogen,Urine 0.2 EU/dl (0.2)
[2024-11-19 22:06] LABS: Troponin I 0.78 ng/ml (0.00-0.034)
[2024-11-19 22:07] LABS: Lactic Acid Follow up (RFLX 2) 4.1 mmol/L (0.7-2.1)
--- NOTE | 2024-11-19 22:07 | PC.NURSE ---
Re-peat troponin .78
[2024-11-19] MEDS: LACTATED RINGERS 1000ML 1,000 ML 999 ML IV (22:22)
[2024-11-19 22:34] LABS: Bacteria,Urine Trace /lpf; Mucus,Urine 2+ /lpf
--- NOTE | 2024-11-19 23:58 | PC.NURSE ---
spoke with transfer center. they were requesting an update. they state at this time that pt has a bed assignment, but they are still waiting for the room to be cleaned
[2024-11-20] VITALS: BP 122/85; RESP 18; TEMP 37.1
--- NOTE | 2024-11-20 00:07 | PC.NURSE ---
Dr Prescott spoke with . Pt is accepted to ICU. Waiting for bed assignment at this time.
[2024-11-20 00:15] VITALS: BP 104/74; PULSE 80; RESP 18; TEMP 37.1
--- NOTE | 2024-11-20 00:27 | PC.NURSE ---
report called to Florentino WADE at this time at [facility]
[2024-11-20 00:30] VITALS: BP 107/70; PULSE 80; RESP 18; TEMP 37; O2SAT 99
--- NOTE | 2024-11-20 00:36 | PC.NURSE ---
Called [facility] for a helicopter to transfer pt to the icu said it would be 30-40 minutes. Said they would call when they hit the air
[2024-11-20 00:45] VITALS: BP 115/81; RESP 18; TEMP 37
[2024-11-20 01:00] VITALS: BP 100/74; RESP 18; TEMP 37.1; O2SAT 99
--- NOTE | 2024-11-20 01:55 | PC.NURSE ---
Addendum entered by Haylee Ardon RN 11/20/24 01:56: [facility] Original Note: [facility] at bedside. report given to flight nurse.
[2024-11-20 01:56] VITALS: BP 106/67; PULSE 81; RESP 18; TEMP 37.1; O2SAT 98
== END 2024-11-20 01:58 | disposition short-term general hospital (02) ==
PROVIDERS: Emergency Medicine; Physician Assistant; Emergency Provider Emergency Medicine
DX: A41.9 Sepsis, unspecified organism (principal); R65.21 Severe sepsis with septic shock; J96.21 Acute and chronic respiratory failure with hypoxia; J96.22 Acute and chronic respiratory failure with hypercapnia; E87.5 Hyperkalemia; N17.9 Acute kidney failure, unspecified; I26.01 Septic pulmonary embolism with acute cor pulmonale
CPT/HCPCS: 31500; 36556; 51702; 71045; 71275; 74177; 80053; 80307; 80320; 81001; 82550; 82803; 83605; 83735; 83880; 84145; 84484; 85007; 85025; 85027; 85378; 85610; 85730; 86140; 87040; 87070; 87205; 87633; 93005; 96361; 96365; 96367; 96368; 96375; 99291; J0456; J0696; J1644; J2405; J2543; J2704; J2919; J3370; J3475; J7030; J7050; J7120; J7620; Q9967

== ENCOUNTER 2024-12-02 14:11 | Inpatient (IN) | payer OTHER, SELFPAY ==
[2024-12-02] VITALS (8 sets, daily range): BP systolic 121–153; BP diastolic 85–100; PULSE 108–127; RESP 14–31; TEMP 36.5–36.9; O2SAT 87–100; BMI 19.6
--- NOTE | 2024-12-02 14:12 | XR_ITS ---
FINAL REPORT CLINICAL HISTORY: Shortness of breath, resp failure COMPARISON: 11/19/2024 FINDINGS: There has been interval extubation. The heart size is mildly enlarged. The mediastinum is normal. Dense consolidation at the right lung base has increased since the previous exam. There is a moderate right pleural effusion which is also larger. Stable calcification is noted at the right lung apex. There is no pneumothorax. There is no osseous abnormality. IMPRESSION: Worsening consolidation and effusion of the right lung base. Interval extubation. Reviewed, Interpreted and Dictated by Bijan Tellez MD Transcribed by Traci Heredia Authenticated and [facility]
--- NOTE | 2024-12-02 14:17 | ECG_ITS ---
APPROVED REPORT Exam: Resting ECG HR:122 bpm ECG Measurements Heart Rate 122 AXES NJ 132 P 71 QRSd 69 QRS 110 QT 336 T 63 QTc 408 Conclusion SINUS TACHYCARDIA POSSIBLE RIGHT VENTRICULAR HYPERTROPHY [SOME/ALL OF: PROMINENT R IN V1, LATE TRANSITION, RAD, REJI, SSS] NONSPECIFIC T-WAVE ABNORMALITY No STEMI Electronically signed by : PHILLIP LESLIE, 12/03/2024 00:23:17
[2024-12-02] MEDS: MAGNESIUM SULFATE IN WATER 2 GM/50 ML PIGGYBACK IV (14:18)
[2024-12-02] MEDS: METHYLPREDNISOLONE SOD SUCC 125MG VIAL 125 MG IV (14:18)
[2024-12-02] MEDS: IPRATROPIUM/ALBUTEROL 3 ML NEB 9 ML IH (14:18)
--- NOTE | 2024-12-02 14:27 | PC.NURSE ---
1420hrs- administered as per the MAR 125mg of Solu-Medrol, 2g in 50ml's of Mag Sulfate and administered 9mL's of a duoneb via neb mask at 8L/min. 1425hrs RAD at bedside for chest X-ray.
[2024-12-02 14:30] LABS: VBG Base Excess 9.8 mmol/L (-2.4-2.3); VBG HCO3 35.5 mmol/L (23-30); VBG Oxygen Saturation 80.3 % (50-70); VBG PH 7.34 mmol/L (7.31-7.41); VBG PO2 48.1 mmol/L (28-40); VBG Total CO2 37.6 mmol/L (23-27)
[2024-12-02 14:32] LABS: Lactate Venous 3.1 mmol/L (0.4-2.0); VBG PCO2 66.9 mmol/L (35-51)
[2024-12-02 14:34] LABS: Basophils % 0.3 % (0.1-2.0); Eosinophils % 0.1 % (0.1-12.0); Hematocrit 32.5 % (37.0-47.0); Hemoglobin 9.8 g/dL (12.2-16.2); Lymphocytes # 1.5 K/mm3 (0.7-4.5); Lymphocytes % 10.7 % (10-50); Mean Corpuscular HGB Conc 30.2 g/dL (31.8-35.4); Mean Corpuscular Volume 86.2 fl (81-99); Mean Platelet Volume 9.9 fl (7.4-10.4); Monocytes # 1.5 K/mm3 (0.1-1.0); Monocytes % 10.5 % (1.7-9.3); Neutrophils # 10.9 K/mm3 (1.8-7.8); Neutrophils % 77.8 % (37.0-80.0); Nucleated Red Blood Cells # 0.02 10^3/uL; Nucleated Red Blood Cells % 0.1 %; Platelet Count 455 K/mm3 (142-424); Red Blood Count 3.77 M/mm3 (4.20-5.40); Red Cell Distribution Width 15.7 % (11.5-17.5); Red Cell Distribution Width-SD 48.4 fL; White Blood Count 14.1 K/mm3 (4.8-10.8)
[2024-12-02 14:36] LABS: Alanine Aminotransferase 142 U/L (12-78); Albumin Level 3.7 g/dl (3.5-5.0); Albumin/Globulin Ratio 1.1 (1.1-1.8); Alkaline Phosphatase 100 U/L (38-126); Aspartate Amino Transferase 39 U/L (14-36); Bilirubin,Total 0.5 mg/dl (0.2-1.3); Blood Urea Nitrogen 17 mg/dl (7-17); Chloride 86 mmol/L (98-107); Creatinine Clearance Estimated 101 mL/min (50-200); Estimated Glomerular Filt Rate 128 ml/min (>60); GFR (African American) 155 ML/MIN (>60); Globulin 3.5 g/dL (1.3-3.2); Glucose 147 mg/dl (74-100); Potassium 3.9 mmoL/L (3.5-5.1); Sodium 136 mmol/L (136-145); Total Protein,Serum 7.2 g/dl (6.3-8.2)
[2024-12-02 14:41] LABS: C-Reactive Protein 61.5 mg/L (0-4)
[2024-12-02 14:43] LABS: Anion Gap 19.9 mEq/L (5-15); Carbon Dioxide 34 mmol/L (22.0-30.0)
[2024-12-02 14:45] LABS: Coronavirus 19, PCR Not Detected (NotDetected); Influenza A, PCR Not Detected (NotDetected); Influenza B, PCR Not Detected (NotDetected)
--- NOTE | 2024-12-02 14:49 | CT_ITS ---
FINAL REPORT TECHNIQUE: The patient was injected with IV contrast. Axial images were obtained through the chest in a PE protocol. 3-D reconstruction images were also performed. Individualized dose reduction techniques using automated exposure control or adjustment of the MA and/or KV according to patient's size were employed. CLINICAL HISTORY: resp failure, abnormal CXR, R sided consolidation COMPARISON: Chest x-ray earlier same day FINDINGS: Mediastinal vasculature is adequately opacified. No pulmonary artery filling defects are identified to suggest PE. There is a large partially calcified bulla in the medial right apex measuring 6.5 x 4.8 cm, stable. There is no axillary adenopathy. There is no hilar or mediastinal adenopathy. The heart size is normal. There is no pericardial or pleural effusion. There is patchy airspace infiltrate in the bilateral upper lobes, particularly of the left upper lobe, more evident than on the previous exam. Dense consolidation in the right mid and lower lobes is more evident than on the prior study. Large right pleural effusion has increased in size. Limited images of the upper abdomen demonstrate a small hypervascular focus in the medial right lobe of the liver measuring 6 cm which may be related to flash filling of a hemangioma. IMPRESSION: No pulmonary embolus or dissection. Worsening consolidation right middle and lower lobes and significant increase in size of pleural effusion. Worsening ill-defined airspace opacity right upper and lower lobes. Findings are consistent with progression of pneumonia. Reviewed, Interpreted and Dictated by Bijan Tellez MD Transcribed by Traci Heredia Authenticated and [facility]
[2024-12-02 14:53] LABS: NT Pro Brain Natriuretic Pep. 10400 pg/mL (0-125); Troponin I 0.04 ng/ml (0.00-0.034)
[2024-12-02 14:57] LABS: T4 (Thyroxine) 8.1 ug/dl (5.53-11.0)
--- NOTE | 2024-12-02 15:04 | ED_ITS ---
Discharge Plan Disposition Chief Complaint: Shortness of Breath/Dyspnea Prescriptions Prescriptions: No Action levetiracetam 1,000 mg tablet 1,000 mg PO Q12H albuterol sulfate 2.5 mg /3 mL (0.083 %) solution for nebulization 2.5 mg inhalation Q4-6H PRN (Reason: shortness of breath or wheezing) Qty: 75 0RF Vraylar 1.5 mg capsule 1.5 mg PO DAILY Qty: 90 3RF ropinirole 1 mg tablet 1 mg PO HS Qty: 90 3RF ergocalciferol (vitamin D2) [Vitamin D2] 1,250 mcg (50,000 unit) capsule See Rx Instructions .ROUTE .COMPLEX Qty: 14 3RF Dose Instruction: TAKE 1 CAPSULE BY MOUTH ONCE A WEEK Rx Instructions: TAKE 1 CAPSULE BY MOUTH ONCE A WEEK baclofen 10 mg tablet 10 mg PO TID Qty: 90 2RF lisinopril 20 mg tablet See Rx Instructions .ROUTE .COMPLEX Qty: 180 2RF Dose Instruction: TAKE 1 TABLET BY MOUTH TWICE RODARTE FOR BLOOD PRESSURE Rx Instructions: TAKE 1 TABLET BY MOUTH TWICE RODARTE FOR BLOOD PRESSURE diazepam [Valium] 2 mg tablet 2 mg PO DAILY PRN (Reason: anxiety) Qty: 12 3RF Rx Instructions: +++THIS IS A MONTHLY AMOUNT+++ albuterol sulfate [Ventolin HFA] 90 mcg/actuation HFA aerosol inhaler See Rx Instructions .ROUTE .COMPLEX Qty: 18 5RF Dose Instruction: INHALE 4 PUFFS EVERY 4 HOURS FOR 48 HOURS. THEN NEEDED FOR SHORTNESS OF BREATH OR WHEEZING Rx Instructions: INHALE 4 PUFFS EVERY 4 HOURS FOR 48 HOURS. THEN NEEDED FOR SHORTNESS OF BREATH OR WHEEZING budesonide-formoterol [Symbicort] 80-4.5 mcg/actuation HFA aerosol inhaler See Rx Instructions .ROUTE .COMPLEX Qty: 10.2 6RF Dose Instruction: TAKE 1 PUFF TWICE A DAY Rx Instructions: TAKE 1 PUFF TWICE A DAY doxycycline monohydrate 100 mg capsule 100 mg PO BID 7 Days Qty: 14 0RF Referrals Follow up/Referrals: Provider,Referral, MD [Primary Care Provider] - See instructions Clinical Impressions Clinical Impression: Acute right-sided heart failure, Pneumonia, Pleural effusion, Acute respiratory distress Print Language Print Language: Kittitian Discharge ED Provider: Melany Randall HPI <Melany Randall DO - Last Filed: 12/02/24 15:13> General Chief Complaint: Shortness of Breath/Dyspnea Stated Complaint: SOA Time Seen by Provider: 12/02/24 14:12 Mode of Arrival: EMS Source of Information: Patient Description of Symptoms (Recalled from ER Triage Doc. by RN): pt here today for shortness of air, pt was seen here recently and flown to [facility] for bilateral pe, pt states her oxygen has not gotten any better since she has been home for the last two weeks History of Present Illness HPI narrative: This patient is a 54-year-old female with a history of COPD, unclear if she uses home oxygen or not because she states that she prays for oxygen, PEs, recurrent pneumonia, hypertension, hyperlipidemia, CAD presenting to the emergency department for evaluation with concern for shortness of breath. Feeling bad for 2 weeks now with cough, sputum production, shortness of breath. Feels like she was transferred from here to [facility] 11/19/24 for respiratory failure in the setting of pleural effusion and bilateral PEs with right heart strain. Patient is a poor historian and does not provide any further details with regards to what happened during her admission at that time. She went to PCP office today where she was noted to have an O2 saturation in the 70s on room air and was in respiratory distress. Given this, she was sent in by EMS. EMS notes that her O2 saturation significantly proved after administration of a DuoNeb Related Data Home Medications ?Medication ?Instructions ?Recorded ?Confirmed levetiracetam 1,000 mg tablet 1,000 mg PO Q12H seizures 09/26/22 12/02/24 Previous Rx's ?Medication ?Instructions ?Recorded albuterol sulfate 2.5 mg/3 mL 2.5 mg (3 mL) inhalation Q4-6H PRN 04/11/24 (0.083 %) solution for nebulization shortness of breath or wheezing #75 mL cariprazine 1.5 mg capsule 1.5 mg PO DAILY #90 caps 08/23/24 (Vraylar) ropinirole 1 mg tablet 1 mg PO HS Restless leg #90 tabs 08/28/24 ergocalciferol (vitamin D2) 1,250 See Rx Instructions .Route 09/12/24 mcg (50,000 unit) capsule (Vitamin .COMPLEX #14 caps D2) baclofen 10 mg tablet 10 mg PO TID #90 tabs 09/17/24 doxycycline monohydrate 100 mg 100 mg PO BID 7 days #14 caps 10/18/24 capsule lisinopril 20 mg tablet See Rx Instructions .Route 10/31/24 .COMPLEX #180 tabs diazepam 2 mg tablet (Valium) 2 mg PO DAILY PRN anxiety #12 tabs 11/01/24 albuterol sulfate 90 mcg/actuation See Rx Instructions .Route 11/12/24 aerosol inhaler (Ventolin HFA) .COMPLEX #18 grams budesonide-formoterol HFA 80 See Rx Instructions .Route 11/12/24 mcg-4.5 mcg/actuation aerosol .COMPLEX #10.2 grams inhaler (Symbicort) Allergies Allergy/AdvReac Type Severity Reaction Status Date / Time No Known Allergies Allergy Verified 08/08/24 13:15 [facility] <Melany Randall DO - Last Filed: 12/02/24 15:13> [facility] Disclaimer: The information contained in this section may have been updated after the patient was seen, as this information can be updated by other users. Medical History Atypical pneumonia COPD (chronic obstructive pulmonary disease) Tobacco abuse counseling Tobacco abuse Encounter for screening for malignant neoplasm of lung in current smoker with 30 pack year history or greater Lung nodule Dyspnea on exertion Smoking greater than 30 pack years COPD (chronic obstructive pulmonary disease) Epileptic seizure Tobacco dependence syndrome Surgical History History of hysterectomy Family History Other Asthma COPD (chronic obstructive pulmonary disease) Hypertension Social History Smoking Status: Current every day smoker tobacco type: cigarettes packs per day: 1 alcohol intake: never substance use type: denies use current occupational status: other Travel in the last 8 weeks: None housing: other caffeine: Yes Have you lived/traveled outside [place] in past 30 days?: No Contact w/someone who lives/traveled outside US past 30 days?: No Exposure to someone with infectious disease in past 14 days?: No Do you have a fever (greater than 100.4 F or 38 C)?: No Have you tested positive for COVID-19: No Exposed to someone with COVID-19 in past 14 days?: No Do you have a sore throat?: No Do you have a cough?: No Do you have any weakness?: No Do you have any diarrhea?: No Are you experiencing any unusual bleeding?: No Do you have any muscle aches/pain?: No Do you have any abdominal pain?: No Are you experiencing loss of taste or smell?: No Other Medical History Have you received the Flu Vaccine for this season: No Have you received the Pneumonia Vaccine: No <Melany Randall DO - Last Filed: 12/02/24 15:13> ROS Obtained: Yes All systems reviewed & no additional complaints except as documented Physical Exam <Melany Randall DO - Last Filed: 12/02/24 15:13> General General appearance: alert, in distress and cachectic Comment: Thin, frail, appears older than stated age Head Head exam: atraumatic and normocephalic Eye Eye exam: Present normal appearance, PERRL and EOMI ENT ENT exam: Present normal exam, normal oropharynx, mucous membranes moist and normal external ear exam Neck Neck exam: Present normal inspection, full ROM and trachea midline; Absent tenderness Chest Chest inspection: Present normal inspection and symmetric chest wall rise; Absent tenderness Respiratory Respiratory exam: Present respiratory distress, wheezes, accessory muscle use and prolonged expiratory phase; Absent stridor Cardiovascular Cardiovascular exam: Present normal rhythm and tachycardia Abdominal Exam Abdominal exam: Present soft; Absent distention, tenderness or guarding Extremities Exam Extremities exam: Present full ROM, normal capillary refill and edema (Symmetric bilateral lower extremity edema); Absent tenderness Back Exam Back exam: Present normal inspection and full ROM; Absent tenderness Neurological Exam Neurological exam: Present alert, oriented X3, CN II-XII intact and normal gait; Absent motor sensory deficit Psychiatric Psychiatric exam: Present anxious Skin Skin exam: Present warm and dry HEART Score <Melany Randall DO - Last Filed: 12/02/24 15:13> HEART Score HEART Score assessment performed?: Yes History (anamnesis): Slightly suspicious ECG: Normal Age: 45-65 years Risk factors: Atherosclerosis history Troponin: 1-3x normal limit HEART Score: 4 <Willard Nguyễn MD - Last Filed: 12/02/24 16:48> HEART Score HEART Score: 4 Procedures <Willard Nguyễn MD - Last Filed: 12/02/24 16:48> Miscellaneous Procedure Procedure Performed: Limited cardiac ultrasound Indication: Dyspnea Identified structures: The heart was visualized in the parasternal long axis, parastenal short axis, apical four chamber and subxyphiod views. The IVC was visualized in the short axis and long axis at its entry into the right atrium. Findings: RV is severely dilated there is evidence of septal bowing RV LV ratio is greater than 2-1 LVEF appears to be normal IVC is severely plethoric with minimal respiratory phasic variation Impression: Severe right sided ventricular dilatation with right ventricular systolic dysfunction Images were saved to permanent archive The study was technically adequate CPT: 80592-50 This study was performed by nc, and I personally interpreted all images/videos. Based on my clinical judgement, these images were adequate and did not necessitate further imaging. Limited lung ultrasound A focused ultrasound exam of the pleural spaces was performed to evaluate for pneumothorax, pulmonary edema, pleural effusion and/or consolidation. The ultrasound was performed with the following indications, as noted in the H&P: Dyspnea Identified structures: Right and left thoracic cavities were examined. Findings: Lung sliding present throughout there are B-lines predominantly throughout the left lung there is a large right sided pleural effusion with dense consolidation Impression: Diffuse pulmonary edema consolidation on the right with associated pleural effusion Images were saved to permanent archive The study was technically adequate CPT 48582-17 This study was performed by nc, and I personally interpreted all images/videos. Based on my clinical judgement, these images were adequate and did not necessitate further imaging. Critical Care <Melany Randall DO - Last Filed: 12/02/24 15:13> Critical Care Time Critical Care Time: Yes Attestation: On 12/02/24, the high probability of a clinically significant, sudden or life threatening deterioration of the following system(s) required my full and direct attention, intervention and personal management. The time I documented below is in addition to time spent performing reported procedures but includes the following listed in this critical care notation. Total Time Total Critical Care Time: 45 Medical Decision Making <Melany Randall DO - Last Filed: 12/02/24 15:13> Payam Inquiry Pt receiving controlled substance: No Vital Signs Vital Signs: 12/02/24 14:23 12/02/24 14:30 12/02/24 15:00 Temperature 98.5 F Temperature Source Oral Pulse Rate 125 H 127 H Pulse Rate [Left Radial] 126 H Respiratory Rate 20 27 H 31 H Blood Pressure 126/88 142/96 H Blood Pressure [Right Arm] 153/100 H Blood Pressure Mean 100 111 Blood Pressure Mean [Right Arm] 117 02 Sat by Pulse Oximetry 87 L 100 90 L Oxygen Delivery Method Room Air 12/02/24 15:30 12/02/24 16:00 Temperature Temperature Source Pulse Rate 120 H Pulse Rate [Left Radial] Respiratory Rate 24 18 Blood Pressure 126/88 135/98 H Blood Pressure [Right Arm] Blood Pressure Mean 100 Blood Pressure Mean [Right Arm] 02 Sat by Pulse Oximetry 99 100 Oxygen Delivery Method Lab Data Labs: Lab Results 12/02/24 14:12: VBG pH 7.34, VBG pCO2 66.9 H, VBG pO2 48.1 H, VBG HCO3 35.5 H, V BG Total CO2 37.6 H, VBG O2 Saturation 80.3 H, VBG Base Excess 9.8 H, VBG Lactic Acid 3.1 H 12/02/24 14:15: WBC 14.1 H, RBC 3.77 L, Hgb 9.8 L, Hct 32.5 L, MCV 86.2, MCH 26.0 L, MCHC 30.2 L, RDW 15.7, Plt Count 455 H, MPV 9.9, Neut % (Auto) 77.8, Lymph % (Auto) 10.7, [place] % (Auto) 10.5 H, Eos % (Auto) 0.1, Baso % (Auto) 0.3, Neut # (Auto) 10.9 H, Lymph # (Auto) 1.5, [place] # (Auto) 1.5 H, Eos # (Auto) 0.0, Baso # (Auto) 0.0, D-Dimer 2.80 H, Sodium 136, Potassium 3.9, Chloride 86 L, C arbon Dioxide 34 H, Anion Gap 19.9 H, BUN 17, Creatinine 0.50 L, Estimated Creat Clear 101, Estimated GFR 128, Est GFR ( Amer) 155, Glucose 147 H, Calcium 9.0, Total Bilirubin 0.5, AST 39 H, ALT 142 H, Alkaline Phosphatase 100, T roponin I 0.04 H, C-Reactive Protein 61.5 H, NT-Pro-B Natriuret Pep 49818 H, Total Protein 7.2, Albumin 3.7, Globulin 3.5 H, Albumin/Globulin Ratio 1.1, TSH 0.93, Thyroxine (T4) 8.1 12/02/24 14:40: SARS-CoV-2 (PCR) Not detected, Influenza A Untype (PCR) Not detected, Influenza Type B (PCR) Not detected 12/02/24 14:15 12/02/24 14:15 Response Orders (Tests/Meds): ED MEDICATIONS Generic Name Dose Route Start Last Admin Trade Name Freq PRN Reason Stop Dose Admin Sodium Chloride 10 ml 12/02/24 15:17 12/02/24 15:18 Sodium Chloride 0.9% 10ml Syr (Rad Only) IV 01/01/25 15:16 10 ml NEEDED PRN Administration Maintain IV Site Discontinued Medications Generic Name Dose Route Start Last Admin Trade Name Freq PRN Reason Stop Dose Admin Albuterol/Ipratropium 9 ml 12/02/24 14:12 12/02/24 14:18 Ipratropium/Albuterol 3 Ml Neb IH 12/02/24 14:13 9 ml ONCE ONE Administration Magnesium Sulfate 2 gm in 50 mls @ 50 mls/hr 12/02/24 14:13 12/02/24 14:18 Magnesium Sulfate 2gm/50ml Premix IV 12/02/24 15:12 50 mls/hr ONCE ONE Administration Ceftriaxone Sodium 2 gm/ 100 mls @ 200 mls/hr 12/02/24 15:02 12/02/24 15:24 Sodium Chloride IV 12/02/24 15:31 200 mls/hr ONCE ONE Administration Azithromycin 500 mg/ Sodium 250 mls @ 250 mls/hr 12/02/24 15:02 12/02/24 15:29 Chloride IV 12/02/24 15:03 250 mls/hr ONCE ONE Administration Iopamidol 85 ml 12/02/24 15:17 12/02/24 15:18 Iopamidol-370 (76%);100ml Bottle IV 12/02/24 15:18 85 ml ONCE ONE Administration Methylprednisolone Sodium Succinate 125 mg 12/02/24 14:13 12/02/24 14:18 Methylprednisolone Sod Succ 125mg Vial IV 12/02/24 14:14 125 mg ONCE ONE Administration Sodium Chloride 50 ml 12/02/24 15:17 12/02/24 15:18 0.9 % Sodium Chloride 50 Ml Vial IV 12/02/24 15:18 50 ml ONCE ONE Administration ORDERS Category Date Time Status CT angio chest PE protocol Stat Cat Scan 12/02/24 14:49 Completed CXR --portable [XR chest portable] Stat Exams 12/02/24 14:12 Completed POCUS Point of Care (ER Only) Stat Exams 12/02/24 15:49 Completed BNP [NT Pro Brain Natriuretic Pep.] Stat Lab 12/02/24 14:15 Completed CRP [C-Reactive Protein] Stat Lab 12/02/24 14:15 Completed Complete Blood Count Auto Diff Stat Lab 12/02/24 14:15 Completed Comprehensive Metabolic Panel Stat Lab 12/02/24 14:15 Completed D-Dimer Stat Lab 12/02/24 14:15 Completed Rapid PCR Covid and Flu A/B Stat Lab 12/02/24 14:40 Completed T4 (Thyroxine) Stat Lab 12/02/24 14:15 Completed TSH [Thyroid Stimulating Hormone] Stat Lab 12/02/24 14:15 Completed Trop I [Troponin I] Stat Lab 12/02/24 14:15 Completed Troponin I Q3H Lab 12/02/24 17:15 Ordered Troponin I Q3H Lab 12/02/24 20:15 Ordered Blood Culture Stat Micro 12/02/24 15:02 Ordered VBG [Venous Blood Gas] Stat RT 12/02/24 14:12 Completed ECG Data Tracing #1: Attestation: I reviewed this ECG and interpreted as documented below: ECG Narrative: Sinus tachycardia with a ventricular of [address] changes concerning for STEMI. Normal intervals ECG initial impression date: 12/02/24 ECG initial impression time: 14:30 MDM Narrative Medical Decision Narrative: In summary, this patient is a 54-year-old female presenting to the Emergency Department for evaluation of shortness of breath. Differential diagnoses considered include but are not limited to COPD exacerbation, respiratory failure, pneumonia, PE, pneumothorax, CHF exacerbation. Ruling out the most morbid conditions drove assessment. It should be noted patient's history includes COPD, CHF, PEs, hypertension, hyperlipidemia, CAD which likely are not at goal therapy. This complicates all aspects of care by increasing patient's risk for morbidity. I reviewed patient's past medical records and noted previous evaluations in the past for COPD exacerbation as well as evaluation November 19, 2024 for respiratory distress with diagnosis of bilateral PEs and transferred to higher level of care. On exam, the patient is in respiratory distress and is anxious appearing. She is a thin, frail, feels older than stated age. She was given DuoNebs x 3, IV methylprednisolone, IV magnesium given respiratory distress in the setting of COPD. She also has significant edema noted on exam with concern for volume overload. Based on vital signs, she was screened positive for sepsis, but she looks volume overloaded so I am not providing her with a sepsis bolus of IV fluids. Workup included lab evaluation to evaluate for infectious, metabolic, cardiac issues contributing to her shortness of breath. Chest x-ray was also obtained as well as EKG. EKG demonstrates sinus tachycardia.. I independently interpreted chest x-ray prior to the radiologist read and noted worsening pleural effusion/consolidation in the right lower lung. Please see their read for final interpretation. Labs were obtained that demonstrated leukocytosis which appears to be chronic, anemia with hemoglobin of 9.8, not significant change from prior, . D-dimer is significantly elevated in the setting of recent blood clots. Blood gas demonstrates a compensated respiratory acidosis with a mildly elevated lactic of 3.1. Kidney function is normal. She has mild transaminitis. Initial troponin is 0.04, CRP is elevated, BNP significantly evaded 10,400. This is down from prior, however. On reassessment, patient had improvement after administration of nebs, magnesium, and steroids as above. CT PE is pending. Patient care signed out to the oncoming provider, Dr. Nguyễn. <Willard Nguyễn MD - Last Filed: 12/02/24 16:48> Vital Signs Vital Signs: 12/02/24 14:23 12/02/24 14:30 12/02/24 15:00 Temperature 98.5 F Temperature Source Oral Pulse Rate 125 H 127 H Pulse Rate [Left Radial] 126 H Respiratory Rate 20 27 H 31 H Blood Pressure 126/88 142/96 H Blood Pressure [Right Arm] 153/100 H Blood Pressure Mean 100 111 Blood Pressure Mean [Right Arm] 117 02 Sat by Pulse Oximetry 87 L 100 90 L Oxygen Delivery Method Room Air 12/02/24 15:30 12/02/24 16:00 Temperature Temperature Source Pulse Rate 120 H Pulse Rate [Left Radial] Respiratory Rate 24 18 Blood Pressure 126/88 135/98 H Blood Pressure [Right Arm] Blood Pressure Mean 100 Blood Pressure Mean [Right Arm] 02 Sat by Pulse Oximetry 99 100 Oxygen Delivery Method Lab Data Labs: Lab Results 12/02/24 14:12: VBG pH 7.34, VBG pCO2 66.9 H, VBG pO2 48.1 H, VBG HCO3 35.5 H, V BG Total CO2 37.6 H, VBG O2 Saturation 80.3 H, VBG Base Excess 9.8 H, VBG Lactic Acid 3.1 H 12/02/24 14:15: WBC 14.1 H, RBC 3.77 L, Hgb 9.8 L, Hct 32.5 L, MCV 86.2, MCH 26.0 L, MCHC 30.2 L, RDW 15.7, Plt Count 455 H, MPV 9.9, Neut % (Auto) 77.8, Lymph % (Auto) 10.7, [place] % (Auto) 10.5 H, Eos % (Auto) 0.1, Baso % (Auto) 0.3, Neut # (Auto) 10.9 H, Lymph # (Auto) 1.5, [place] # (Auto) 1.5 H, Eos # (Auto) 0.0, Baso # (Auto) 0.0, D-Dimer 2.80 H, Sodium 136, Potassium 3.9, Chloride 86 L, C arbon Dioxide 34 H, Anion Gap 19.9 H, BUN 17, Creatinine 0.50 L, Estimated Creat Clear 101, Estimated GFR 128, Est GFR ( Amer) 155, Glucose 147 H, Calcium 9.0, Total Bilirubin 0.5, AST 39 H, ALT 142 H, Alkaline Phosphatase 100, T roponin I 0.04 H, C-Reactive Protein 61.5 H, NT-Pro-B Natriuret Pep 98250 H, Total Protein 7.2, Albumin 3.7, Globulin 3.5 H, Albumin/Globulin Ratio 1.1, TSH 0.93, Thyroxine (T4) 8.1 12/02/24 14:40: SARS-CoV-2 (PCR) Not detected, Influenza A Untype (PCR) Not detected, Influenza Type B (PCR) Not detected Response Orders (Tests/Meds): ED MEDICATIONS Generic Name Dose Route Start Last Admin Trade Name Ines PRN Reason Stop Dose Admin Sodium Chloride 10 ml 12/02/24 15:17 12/02/24 15:18 Sodium Chloride 0.9% 10ml Syr (Rad Only) IV 01/01/25 15:16 10 ml NEEDED PRN Administration Maintain IV Site Discontinued Medications Generic Name Dose Route Start Last Admin Trade Name Ines PRN Reason Stop Dose Admin Albuterol/Ipratropium 9 ml 12/02/24 14:12 12/02/24 14:18 Ipratropium/Albuterol 3 Ml Neb IH 12/02/24 14:13 9 ml ONCE ONE Administration Magnesium Sulfate 2 gm in 50 mls @ 50 mls/hr 12/02/24 14:13 12/02/24 14:18 Magnesium Sulfate 2gm/50ml Premix IV 12/02/24 15:12 50 mls/hr ONCE ONE Administration Ceftriaxone Sodium 2 gm/ 100 mls @ 200 mls/hr 12/02/24 15:02 12/02/24 15:24 Sodium Chloride IV 12/02/24 15:31 200 mls/hr ONCE ONE Administration Azithromycin 500 mg/ Sodium 250 mls @ 250 mls/hr 12/02/24 15:02 12/02/24 15:29 Chloride IV 12/02/24 15:03 250 mls/hr ONCE ONE Administration Iopamidol 85 ml 12/02/24 15:17 12/02/24 15:18 Iopamidol-370 (76%);100ml Bottle IV 12/02/24 15:18 85 ml ONCE ONE Administration Methylprednisolone Sodium Succinate 125 mg 12/02/24 14:13 12/02/24 14:18 Methylprednisolone Sod Succ 125mg Vial IV 12/02/24 14:14 125 mg ONCE ONE Administration Sodium Chloride 50 ml 12/02/24 15:17 12/02/24 15:18 0.9 % Sodium Chloride 50 Ml Vial IV 12/02/24 15:18 50 ml ONCE ONE Administration ORDERS Category Date Time Status CT angio chest PE protocol Stat Cat Scan 12/02/24 14:49 Completed CXR --portable [XR chest portable] Stat Exams 12/02/24 14:12 Completed POCUS Point of Care (ER Only) Stat Exams 12/02/24 15:49 Completed BNP [NT Pro Brain Natriuretic Pep.] Stat Lab 12/02/24 14:15 Completed CRP [C-Reactive Protein] Stat Lab 12/02/24 14:15 Completed Complete Blood Count Auto Diff Stat Lab 12/02/24 14:15 Completed Comprehensive Metabolic Panel Stat Lab 12/02/24 14:15 Completed D-Dimer Stat Lab 12/02/24 14:15 Completed Rapid PCR Covid and Flu A/B Stat Lab 12/02/24 14:40 Completed T4 (Thyroxine) Stat Lab 12/02/24 14:15 Completed TSH [Thyroid Stimulating Hormone] Stat Lab 12/02/24 14:15 Completed Trop I [Troponin I] Stat Lab 12/02/24 14:15 Completed Troponin I Q3H Lab 12/02/24 17:15 Ordered Troponin I Q3H Lab 12/02/24 20:15 Ordered Blood Culture Stat Micro 12/02/24 15:02 Ordered VBG [Venous Blood Gas] Stat RT 12/02/24 14:12 Completed MDM Narrative Medical Decision Narrative: In summary, this patient is a 54-year-old female presenting to the Emergency Department for evaluation of shortness of breath. Differential diagnoses considered include but are not limited to COPD exacerbation, respiratory failure, pneumonia, PE, pneumothorax, CHF exacerbation. Ruling out the most morbid conditions drove assessment. It should be noted patient's history includes COPD, CHF, PEs, hypertension, hyperlipidemia, CAD which likely are not at goal therapy. This complicates all aspects of care by increasing patient's risk for morbidity. I reviewed patient's past medical records and noted previous evaluations in the past for COPD exacerbation as well as evaluation November 19, 2024 for respiratory distress with diagnosis of bilateral PEs and transferred to higher level of care. On exam, the patient is in respiratory distress and is anxious appearing. She is a thin, frail, feels older than stated age. She was given DuoNebs x 3, IV methylprednisolone, IV magnesium given respiratory distress in the setting of COPD. She also has significant edema noted on exam with concern for volume overload. Based on vital signs, she was screened positive for sepsis, but she looks volume overloaded so I am not providing her with a sepsis bolus of IV fluids. Workup included lab evaluation to evaluate for infectious, metabolic, cardiac issues contributing to her shortness of breath. Chest x-ray was also obtained as well as EKG. EKG demonstrates sinus tachycardia.. I independently interpreted chest x-ray prior to the radiologist read and noted worsening pleural effusion/consolidation in the right lower lung. Please see their read for final interpretation. Labs were obtained that demonstrated leukocytosis which appears to be chronic, anemia with hemoglobin of 9.8, not significant change from prior, . D-dimer is significantly elevated in the setting of recent blood clots. Blood gas demonstrates a compensated respiratory acidosis with a mildly elevated lactic of 3.1. Kidney function is normal. She has mild transaminitis. Initial troponin is 0.04, CRP is elevated, BNP significantly evaded 10,400. This is down from prior, however. On reassessment, patient had improvement after administration of nebs, magnesium, and steroids as above. CT PE is pending. Patient care signed out to the oncoming provider, Dr. Nguyễn. This is Dr. Mansfield took over from Dr. Randall. CT scan was performed which I personally interpreted which shows no evidence specifically of pulmonary embolisms. There is still severe RV to LV ratio abnormalities there is also a right-sided pleural effusion with dense consolidation possibly a superimposed pneumonia. Patient was started on Rocephin and azithromycin by Dr. Randall. Patient does have a leukocytosis is mildly tachypneic technically does meet sepsis criteria however I believe the majority of her symptoms are secondary to chronic right-sided heart failure associated pleural effusions and possibly small pulmonary infarctions. Reviewing her most recent CT scan when she presented in extremis and was intubated and sent to [facility] there was a very low embolic burden of clot almost certainly not the cause of patient's presenting respiratory symptoms. She will need further cardiac evaluation. Patient is unaware why cannot remember the hospital course at [facility]. We have been trying to get records but a benign successful so far. Patient is stable on 6 L nasal cannula respiratory rate in the low 100s and oxygen saturations are normal. She is mentating normally at this point. She would prefer to stay here and not go to emergency of [facility]. I discussed the case with hospital medicine who agreed to admit her for further evaluation and management.
[2024-12-02 15:11] LABS: Thyroid Stimulating Hormone 0.93 uIU/mL (0.465-4.68)
[2024-12-02] MEDS: IOPAMIDOL-370 (76%);100ML BOTTLE 85 ML IV (15:18)
[2024-12-02] MEDS: SODIUM CHLORIDE 0.9% 10ML SYR (RAD ONLY) 10 ML IV (15:18)
[2024-12-02] MEDS: 0.9 % SODIUM CHLORIDE 50 ML VIAL IV (15:18)
[2024-12-02] MEDS: CEFTRIAXONE SODIUM 2 GM in 0.9 % SODIUM CHLORIDE 100 ML IV (15:24)
[2024-12-02] MEDS: AZITHROMYCIN 500 MG in 0.9 % SODIUM CHLORIDE 250 ML 250 MG IV (15:29)
--- NOTE | 2024-12-02 16:38 | PC.NURSE ---
DR THORNE SPEAKING WITH HOSPITALIST
--- NOTE | 2024-12-02 16:45 | PC.NURSE ---
[facility] APPLICATION ADMINISTRATOR NOTIFIED OF ADMISSION
--- NOTE | 2024-12-02 17:04 | PC.NURSE ---
called report to lalo strauss on 2nd floor
--- NOTE | 2024-12-02 17:47 | PC.NURSE ---
arrived by stretcher from ED
--- NOTE | 2024-12-02 18:09 | P.HP_ITS ---
History of Present Illness *Admission Date: 12/02/24 *Reason for visit:: Shortness of breath *History of present illness: Rocio Gonzalez is a 54 year old female with medical history significant for COPD on room air, current tobacco smoker, bilateral PEs, anxiety/depression, seizure disorder, medication nonadherence who presents with progressive shortness of breath over the past week. Patient recently presented to our facility earlier this month with similar symptoms, found to have bilateral PEs with RV strain, pneumonia, and septic shock including shock liver requiring intubation and transferred to higher level care to [facility]. Patient states she was discharged with oxygen but was not wearing it consistently at home. She also states she has been smoking profusely at home since discharge, was motivated to quit at [facility]. Workup in the ED significant for WBC 14.1, hemoglobin 9.8, AGAP 19.1, troponin 0.04, proBNP 10,400. CTA chest however did not reveal PE, but did show worsening multifocal pneumonia. Requiring 6 L nasal cannula. Case discussed with ED provider and decision was made to admit patient for acute hypoxic respiratory failure secondary to worsening multifocal pneumonia. [facility] Disclaimer: The information contained in this section may have been updated after the patient was seen, as this information can be updated by other users. Medical History Atypical pneumonia COPD (chronic obstructive pulmonary disease) Tobacco abuse counseling Tobacco abuse Encounter for screening for malignant neoplasm of lung in current smoker with 30 pack year history or greater Lung nodule Dyspnea on exertion Smoking greater than 30 pack years COPD (chronic obstructive pulmonary disease) Epileptic seizure Tobacco dependence syndrome Surgical History History of hysterectomy Family History Other Asthma COPD (chronic obstructive pulmonary disease) Hypertension Social History (Updated 12/02/24 @ 18:42 by Jennifer Stone RN) Smoking Status: Current every day smoker tobacco type: cigarettes packs per day: 1 alcohol intake: never substance use type: denies use current occupational status: other Travel in the last 8 weeks: None housing: other caffeine: Yes Have you lived/traveled outside US in past 30 days?: No Contact w/someone who lives/traveled outside US past 30 days?: No Exposure to someone with infectious disease in past 14 days?: No Do you have a fever (greater than 100.4 F or 38 C)?: No Have you tested positive for COVID-19: No Exposed to someone with COVID-19 in past 14 days?: No Do you have a sore throat?: No Do you have a cough?: No Do you have any weakness?: No Do you have any diarrhea?: No Are you experiencing any unusual bleeding?: No Do you have any muscle aches/pain?: No Do you have any abdominal pain?: No Are you experiencing loss of taste or smell?: No Other Medical History Have you received the Flu Vaccine for this season: No Have you received the Pneumonia Vaccine: No Meds Home Medications and Allergies Home Medications ?Medication ?Instructions ?Recorded ?Confirmed ?Type levetiracetam 1,000 mg tablet 1,000 mg PO Q12H seizures 09/26/22 12/02/24 Hist ory baclofen 10 mg tablet 10 mg PO TID #90 tabs 09/17/24 12/02/24 Rx lisinopril 20 mg tablet See Rx Instructions .Route 10/31/24 12/02/24 Rx .COMPLEX #180 tabs diazepam 2 mg tablet (Valium) 2 mg PO DAILY PRN anxiety #12 tabs 11/01/24 12/02/24 Rx albuterol sulfate 90 mcg/actuation See Rx Instructions .Route .COMPLEX 12/02/24 12/02/24 History aerosol inhaler (Ventolin HFA) apixaban 5 mg tablet (Eliquis) 5 mg PO DAILY 12/02/24 12/02/24 History budesonide-formoterol HFA 80 1 puff inhalation DAILY 12/02/24 12/02/24 History mcg-4.5 mcg/actuation aerosol inhaler (Symbicort) cariprazine 1.5 mg capsule 1.5 mg PO DAILY 12/02/24 12/02/24 History (Vraylar) ergocalciferol (vitamin D2) 1,250 1,250 mcg PO WEEKLY 12/02/24 12/02/24 History mcg (50,000 unit) capsule (Vitamin D2) ropinirole 1 mg tablet 1 mg PO DAILY 12/02/24 12/02/24 History New Prescriptions to Start Prescriptions: Allergies Allergy/AdvReac Type Severity Reaction Status Date / Time No Known Allergies Allergy Verified 08/08/24 13:15 Exam Data for Last 24 hours Vital signs and Labs for Last 24 Hours: Temp Pulse Resp BP Pulse Ox O2 Del Method O2 Flow Rate 98.2 F 115 H 20 126/91 H 100 Nasal Cannula 6 12/02/24 17:02 12/02/24 17:02 12/02/24 17:02 12/02/24 17:02 12/02/24 16:00 12/02/24 17:02 12/02/24 17:02 Laboratory Results - last 24 hr 12/02/24 14:12: VBG pH 7.34, VBG pCO2 66.9 H, VBG pO2 48.1 H, VBG HCO3 35.5 H, VBG Total CO2 37.6 H, VBG O2 Saturation 80.3 H, VBG Base Excess 9.8 H, VBG Lactic Acid 3.1 H 12/02/24 14:15: WBC 14.1 H, RBC 3.77 L, Hgb 9.8 L, Hct 32.5 L, MCV 86.2, MCH 26.0 L, MCHC 30.2 L, RDW 15.7, Plt Count 455 H, MPV 9.9, Neut % (Auto) 77.8, Lymph % (Auto) 10.7, [place] % (Auto) 10.5 H, Eos % (Auto) 0.1, Baso % (Auto) 0.3, Neut # (Auto) 10.9 H, Lymph # (Auto) 1.5, [place] # (Auto) 1.5 H, Eos # (Auto) 0.0, Baso # (Auto) 0.0, D-Dimer 2.80 H, Sodium 136, Potassium 3.9, Chloride 86 L, Carbon Dioxide 34 H, Anion Gap 19.9 H, BUN 17, Creatinine 0.50 L, Estimated Creat Clear 101, Estimated GFR 128, Est GFR ( Amer) 155, Glucose 147 H, Calcium 9.0, Total Bilirubin 0.5, AST 39 H, ALT 142 H, Alkaline Phosphatase 100, Troponin I 0.04 H, C-Reactive Protein 61.5 H, NT-Pro-B Natriuret Pep 97958 H, Total Protein 7.2, Albumin 3.7, Globulin 3.5 H, Albumin/Globulin Ratio 1.1, TSH 0.93, Thyroxine (T4) 8.1 12/02/24 14:40: SARS-CoV-2 (PCR) Not detected, Influenza A Untype (PCR) Not detected, Influenza Type B (PCR) Not detected I & O for Last 24 hours: Intake & Output 11/29/24 11/30/24 12/01/24 12/02/24 23:59 23:59 23:59 23:59 Weight 50.349 kg Constitutional Constitutional: mild distress *Routine HEENT Exam Head: Present normocephalic Eye: Present EOMI and PERRL ENT: Present mucous membranes moist *Routine Neck Exam Neck: Present supple; Absent lymphadenopathy *Routine Respiratory Exam Respiratory: Present CTA bilaterally *Routine Cardiovascular Exam Cardiovascular: Present RRR *Routine Abdominal Exam Abdominal: Present soft and normoactive bowel sounds; Absent tenderness *Routine Rectal Exam Rectal:: deferred *Routine Genitalia Exam Genitalia:: deferred *Routine Extremities Exam Extremities: Present edema; Absent cyanosis or clubbing Comments: Bilateral lower extremity pitting edema 2+. *Routine Skin Exam Skin: Present warm; Absent rash *Routine Neurological Exam Neurological: Present alert and oriented X3 Assessment and Plan *Assessment and plan (1) Pleural effusion: Status: Acute Category: Medical Code(s): J90 - Pleural effusion, not elsewhere classified (2) Pneumonia: Status: Acute Category: Medical Code(s): J18.9 - Pneumonia, unspecified organism (3) Acute right-sided heart failure: Status: Acute Category: Medical Code(s): I50.811 - Acute right heart failure (4) Multiple pulmonary emboli: Status: Acute Category: Medical Code(s): I26.99 - Other pulmonary embolism without acute cor pulmonale Plan Rocio Gonzalez is a 54 year old female with medical history significant for COPD on room air, current tobacco smoker, bilateral PEs, anxiety/depression, seizure disorder, medication nonadherence who presents with progressive shortness of breath over the past week. Patient recently presented to our facility earlier this month with similar symptoms, found to have bilateral PEs with RV strain, pneumonia, and septic shock including shock liver requiring intubation and transferred to higher level care to [facility]. Patient states she was discharged with oxygen but was not wearing it consistently at home. She also states she has been smoking profusely at home since discharge, was motivated to quit at [facility]. Workup in the ED significant for WBC 14.1, hemoglobin 9.8, AGAP 19.1, troponin 0.04, proBNP 10,400. CTA chest however did not reveal PE, but did show worsening multifocal pneumonia. Requiring 6 L nasal cannula. Case discussed with ED provider and decision was made to admit patient for acute hypoxic respiratory failure secondary to worsening multifocal pneumonia. #Acute hypoxic respiratory failure #Suspected hospital-acquired pneumonia #Multifocal pneumonia #Right pleural effusion #History of bilateral pulmonary emboli #Cor pulmonale, right heart failure #HFpEF exacerbation ? Presents with progressive shortness of breath, worsening lower extremity edema after recent discharge from [facility] for similar presentation. ? Oddly, CTA chest on admission does not show previous pulmonary emboli. Patient does seem to have a chronic dilated right heart on previous echoes. ? Initial BNP 10,400, patient endorses worsening lower extremity pitting edema and pain. ? Initial WBC 14.1, CRP 61.5. Procalcitonin normal. ? Started IV vancomycin, cefepime for hospital-acquired pneumonia. ? IV Lasix 40 mg daily for now, gentle in setting of sepsis. Titrate as needed. ? Therapeutic Lovenox for now with history of PEs, and current hypoxia. ? Consulted cardiology for further evaluation of PEs. ? Does have moderate to large right-sided pleural effusion, consider general surgery consultation for thoracentesis if pulmonology not available. ? Follow-up ECHO to evaluate for RV strain. ? Follow-up bilateral lower extremity Dopplers to rule out DVTs. ? Follow-up sputum, blood cultures. ? Follow-up CBC, CMP, CRP, ESR in the morning. #NSTEMI, likely type II ? Initial troponin 0.04, follow-up trend. EKG without acute ischemic changes. ? Likely type II in the setting of demand ischemia from sepsis, history of PEs. ? Follow-up cardiology consultation. ? Aspirin 81 mg. #Chronic normocytic anemia ? Hemoglobin 9.8. ? Follow-up folate, B12, iron studies. #COPD ? DuoNebs every 6 hours. Seems stable at this time. #Seizure disorder ? Continue home Keppra 1000 mg twice daily. #Anxiety/depression ? Continue home medications once reconciled. #Current tobacco smoker ? Has nicotine patch daily. Patient is motivated to quit. Full code DVT prophylaxis: Therapeutic Lovenox as above.
[2024-12-02 18:31] LABS: Reflex Lactic Add Lactic Reflex
[2024-12-02 19:08] LABS: Lactic Acid Follow Up (RFLX 1) 1.2 mmol/L (0.7-2.1)
[2024-12-02] MEDS: CEFEPIME HCL 2 GM in 0.9 % SODIUM CHLORIDE 100 ML IV (19:41)
[2024-12-02 20:16] LABS: Procalcitonin 0.243 ng/mL (0.0-2.0)
[2024-12-02] MEDS: FUROSEMIDE 40MG/4ML VIAL 40 MG IV (20:39)
[2024-12-02] MEDS: ENOXAPARIN 100MG/ML SYRINGE 50 MG SUBCUT (20:39)
[2024-12-02 20:40] LABS: Hemoglobin A1C 5.9 % (4.0-6.0)
[2024-12-02] MEDS: PATIENT'S OWN HOME MEDICATION (Levetiracetam 1,000 mg tablet) 1000 EACH PO (20:40)
[2024-12-02 21:24] LABS: Troponin I 0.04 ng/ml (0.00-0.034)
[2024-12-02 22:46] LABS: Troponin I 0.04 ng/ml (0.00-0.034)
[2024-12-03] VITALS (12 sets, daily range): BP systolic 90–123; BP diastolic 61–70; PULSE 77–118; RESP 14–22; TEMP 36.3–37.1; O2SAT 92–97; BMI 19.6
[2024-12-03] MEDS: IPRATROPIUM/ALBUTEROL 3 ML NEB IH ×5 (00:07→23:24)
[2024-12-03] MEDS: SODIUM CHLORIDE 3% 15ML NEB 3 ML IH (00:09)
[2024-12-03] MEDS: CEFEPIME HCL 2 GM in 0.9 % SODIUM CHLORIDE 100 ML IV ×3 (02:40→20:16)
--- NOTE | 2024-12-03 03:22 | PC.NURSE ---
Pt weaned down to 4L O2 from 6L. Pt reports 2L is her baseline at home. Lung sounds are still diminished. She is alert and oriented, has continually denied pain throughout the shift. Resting in bed with eyes closed at this time. Bed is low, locked, and call light is in reach. Mother at bedside.
[2024-12-03 06:14] LABS: Basophils % 0.1 % (0.1-2.0); Hematocrit 29.7 % (37.0-47.0); Hemoglobin 9.1 g/dL (12.2-16.2); Lymphocytes # 0.6 K/mm3 (0.7-4.5); Lymphocytes % 8.5 % (10-50); Mean Corpuscular HGB Conc 30.6 g/dL (31.8-35.4); Mean Corpuscular Hemoglobin 26.1 pg (27.0-31.2); Mean Corpuscular Volume 85.3 fl (81-99); Mean Platelet Volume 9.9 fl (7.4-10.4); Monocytes # 0.4 K/mm3 (0.1-1.0); Nucleated Red Blood Cells # 0 10^3/uL; Nucleated Red Blood Cells % 0 %; Platelet Count 385 K/mm3 (142-424); Red Blood Count 3.48 M/mm3 (4.20-5.40); Red Cell Distribution Width 15.6 % (11.5-17.5); Red Cell Distribution Width-SD 47.2 fL; White Blood Count 7.2 K/mm3 (4.8-10.8)
[2024-12-03 06:18] LABS: Chloride 87 mmol/L (98-107)
[2024-12-03 06:19] LABS: Albumin Level 3.1 g/dl (3.5-5.0); Potassium 4.1 mmoL/L (3.5-5.1); Sodium 133 mmol/L (136-145)
[2024-12-03 06:21] LABS: Alanine Aminotransferase 107 U/L (12-78); Aspartate Amino Transferase 36 U/L (14-36); Blood Urea Nitrogen 14 mg/dl (7-17); Creatinine Clearance Estimated 84 mL/min (50-200); Estimated Glomerular Filt Rate 104 ml/min (>60); GFR (African American) 126 ML/MIN (>60)
[2024-12-03 06:22] LABS: Albumin/Globulin Ratio 1.1 (1.1-1.8); Alkaline Phosphatase 81 U/L (38-126); Bilirubin,Total 0.3 mg/dl (0.2-1.3); Calcium 8.1 mg/dl (8.4-10.2); Globulin 2.9 g/dL (1.3-3.2); Glucose 221 mg/dl (74-100); Magnesium 1.6 mg/dl (1.6-2.3)
--- NOTE | 2024-12-03 06:23 | CA_ITS ---
APPROVED REPORT EXAM: Comprehensive 2D, Doppler, and color-flow Echocardiogram Shipping Room Helper: NATALIE Garsia, RVS Ht: 5 ft 2 in Wt: 111lbs BSA: 1.49 BP: 126/91 mmHg Indications: Right HF, Bilateral pumonary emboli with right heart strain, Smoker, SESAY, COPD 2D Dimensions Left Atrium 2.62 cm F: 2.7 - 3.8 LA Volume 31.00 mL LA Volume Index 20.655681 mL/m2 (M/F) 16-34 EF AP4 67.40 % GL Strain -22.4 % M-Mode Dimensions RVDd 2.48 cm (0.9-2.6) LA Diam 3.10 cm (1.9-4.0) LVDd 3.82 cm (3.5-5.7) LVDs 2.41 cm (3.5-5.7) IVSd 0.77 cm (0.6-1.1) PWd 0.94 cm (0.6-1.1) EF (Teich) 67.50% EPSs 0.17 cm FS 36.90% EDV (Teich) 62.70 mL TAPSE 2.12 (<1.7) ESV (Teich) 20.40 mL LV Diastology E Decel Time 100 (160-240 msec) E/A Ratio 0.76 MED A' 18.70 cm/s LAT A' 20.70 cm/s Aortic Valve SALLY Index 1.43 cm2/m2 AoV Peak Vazquez. 168.0 (50-130 cm/s) AO Peak GR. 11.30 mmHg AO Mean GR. 5.60 (<5 mmHg) AO VTI 24.9 (18-25 cm) SALLY (VTI) 2.17 (2.5-4.5 cm2) Mitral Valve MV A Velocity 93.0 (40-130 cm/s) E/A Ratio 0.76 Tricuspid Valve TR P. Velocity 410.00 cm/s RAP Estimate 10.00 mmHg RVSP 77.40 mmHg Left Ventricle The left ventricle is normal size. The left ventricular systolic function is normal. The left ventricular ejection fraction is within the normal range. There is normal left ventricular wall thickness. There is septal bowing towards the left ventricle, suggestive of marked volume/pressure overload. Diastolic function is indeterminate. LVEF is 65-70%. Right Ventricle Right ventricle is severely dilated. Right ventricle is severely hypokinetic. Atria The left atrium size is normal. The right atrium severely dilated. There is no Doppler evidence of interatrial shunt. the interatrial septum bows leftward suggestive of elevated RA pressure. Aortic Valve Aortic valve is mildly thickened. There is no aortic valvular stenosis. No aortic regurgitation is present. Mitral Valve The mitral valve is normal in structure. No evidence of mitral valve stenosis. Trace mitral regurgitation. Tricuspid Valve Tricuspid valve is grossly normal in structure and function. Moderate tricuspid regurgitation. RVSP is > 60 mmHg. Pulmonic Valve The pulmonary valve is normal in structure. Please pulmonic regurgitation. Great Vessels The aortic root is normal in size. IVC is normal in size and collapses >50% with inspiration. Pericardium There is no pericardial effusion. Other Information Study Quality: Fair Conclusion Normal LV systolic function (LVEF 65-70%). Septal bowing towards the left ventricle, suggestive of marked volume/pressure overload. Severe RV dilation with severe reduction in RV function. Severe RA dilation. Moderate TR. Markedly elevated RVSP > 60 mmHg. Electronically signed by : Olga Haddad MD 12/03/2024 14:53:34
[2024-12-03 06:27] LABS: C-Reactive Protein 42.6 mg/L (0-4)
--- NOTE | 2024-12-03 06:27 | CA_ITS ---
FINAL REPORT TECHNIQUE: Grayscale and color Doppler ultrasound images with graded compression of the deep venous system were obtained from the groin to the calf veins bilaterally. CLINICAL HISTORY: Previous Pulmonary Emboli FINDINGS: The deep venous system is normal. There is no evidence of DVT. Flow and compressibility are normal. IMPRESSION: No evidence of left or right lower extremity DVT. Reviewed, Interpreted and Dictated by More Robledo MD Transcribed by Araceli Chadwick Authenticated and [facility]
[2024-12-03 06:39] LABS: Chol/HDL Ratio 3.9 (1-3.5); Cholesterol 142 mg/dl (140-200); HDL Cholesterol 36 mg/dl (40-60); Iron 36 ug/dL (37-170); Triglycerides 78 mg/dl (30-150); VLDL Cholesterol 16 mg/dL (0-40)
[2024-12-03 06:43] LABS: Anion Gap 14.1 mEq/L (5-15); Carbon Dioxide 36 mmol/L (22.0-30.0)
[2024-12-03 06:50] LABS: Total Iron Binding Capacity 341 ug/dL (265-497)
[2024-12-03 06:51] LABS: Direct LDL Cholesterol 89.17 mg/dL (100-129)
[2024-12-03 07:06] LABS: Erythrocyte Sedimentation Rate 78 mm/hr (0-30)
[2024-12-03 07:15] LABS: Ferritin 86.6 ng/ml (11.1-264)
[2024-12-03 08:02] LABS: Hemoglobin A1C 5.8 % (4.0-6.0)
--- NOTE | 2024-12-03 08:04 | EXP.PHA.CONS ---
Pharmacy Consult Date: 12/03/24 Time: 08:04 Referring provider: DR HANLEY Reason for Consult:: VANCOMYCIN DOSING CONSULT Allergies Allergy/AdvReac Type Severity Reaction Status Date / Time No Known Allergies Allergy Verified 08/08/24 13:15 Home Medications ?Medication ?Instructions ?Recorded ?Confirmed ?Type levetiracetam 1,000 mg tablet 1,000 mg PO Q12H seizures 09/26/22 12/02/24 History baclofen 10 mg tablet 10 mg PO TID #90 tabs 09/17/24 12/02/24 Rx lisinopril 20 mg tablet See Rx Instructions .Route 10/31/24 12/02/24 Rx .COMPLEX #180 tabs diazepam 2 mg tablet (Valium) 2 mg PO DAILY PRN anxiety #12 tabs 11/01/24 12/02/24 Rx albuterol sulfate 90 mcg/actuation See Rx Instructions .Route .COMPLEX 12/02/24 12/02/24 History aerosol inhaler (Ventolin HFA) apixaban 5 mg tablet (Eliquis) 5 mg PO DAILY 12/02/24 12/02/24 History budesonide-formoterol HFA 80 1 puff inhalation DAILY 12/02/24 12/02/24 History mcg-4.5 mcg/actuation aerosol inhaler (Symbicort) cariprazine 1.5 mg capsule 1.5 mg PO DAILY 12/02/24 12/02/24 History (Vraylar) ergocalciferol (vitamin D2) 1,250 1,250 mcg PO WEEKLY 12/02/24 12/02/24 History mcg (50,000 unit) capsule (Vitamin D2) ropinirole 1 mg tablet 1 mg PO DAILY 12/02/24 12/02/24 History New Prescriptions to Start Prescriptions: Height: 1.6 m Weight: 50.349 kg Laboratory Results:: Laboratory Results - last 24 hr 12/02/24 14:12: VBG pH 7.34, VBG pCO2 66.9 H, VBG pO2 48.1 H, VBG HCO3 35.5 H, VBG Total CO2 37.6 H, VBG O2 Saturation 80.3 H, VBG Base Excess 9.8 H, VBG Lactic Acid 3.1 H 12/02/24 14:15: WBC 14.1 H, RBC 3.77 L, Hgb 9.8 L, Hct 32.5 L, MCV 86.2, MCH 26.0 L, MCHC 30.2 L, RDW 15.7, Plt Count 455 H, MPV 9.9, Neut % (Auto) 77.8, Lymph % (Auto) 10.7, [place] % (Auto) 10.5 H, Eos % (Auto) 0.1, Baso % (Auto) 0.3, Neut # (Auto) 10.9 H, Lymph # (Auto) 1.5, [place] # (Auto) 1.5 H, Eos # (Auto) 0.0, Baso # (Auto) 0.0, D-Dimer 2.80 H, Sodium 136, Potassium 3.9, Chloride 86 L, Carbon Dioxide 34 H, Anion Gap 19.9 H, BUN 17, Creatinine 0.50 L, Estimated Creat Clear 101, Estimated GFR 128, Est GFR ( Amer) 155, Glucose 147 H, Hemoglobin A1c 5.9, Calcium 9.0, Total Bilirubin 0.5, AST 39 H, ALT 142 H, Alkaline Phosphatase 100, Troponin I 0.04 H, C-Reactive Protein 61.5 H, NT-Pro-B Natriuret Pep 44027 H, Total Protein 7.2, Albumin 3.7, Globulin 3.5 H, Albumin/Globulin Ratio 1.1, TSH 0.93, Thyroxine (T4) 8.1 12/02/24 14:40: SARS-CoV-2 (PCR) Not detected, Influenza A Untype (PCR) Not detected, Influenza Type B (PCR) Not detected 12/02/24 18:36: Lactate 1.2, Troponin I 0.04 H, Procalcitonin 0.243 12/02/24 20:56: Troponin I 0.04 H 12/03/24 05:51: WBC 7.2 D, RBC 3.48 L, Hgb 9.1 L, Hct 29.7 L, MCV 85.3, MCH 26.1 L, MCHC 30.6 L, RDW 15.6, Plt Count 385, MPV 9.9, Neut % (Auto) 84.0 H, Lymph % (Auto) 8.5 L, [place] % (Auto) 6.0, Eos % (Auto) 0.0 L, Baso % (Auto) 0.1, Neut # (Auto) 6.0, Lymph # (Auto) 0.6 L, [place] # (Auto) 0.4, Eos # (Auto) 0.0, Baso # (Auto) 0.0, ESR 78 H, Sodium 133 L, Potassium 4.1, Chloride 87 L, Carbon Dioxide 36 H, Anion Gap 14.1, BUN 14, Creatinine 0.60, Estimated Creat Clear 84, Estimated GFR 104, Est GFR ( Amer) 126, Glucose 221 H D, Hemoglobin A1c 5.8, Calcium 8.1 L, Magnesium 1.6, Iron 36 L, TIBC 341, Iron Saturation 10.22245 L, Ferritin 86.6, Total Bilirubin 0.3, AST 36, ALT 107 H, Alkaline Phosphatase 81, C-Reactive Protein 42.6 H D, Total Protein 6.0 L, Albumin 3.1 L D, Globulin 2.9, Albumin/Globulin Ratio 1.1, Triglycerides 78, Cholesterol 142, LDL Cholesterol Direct 89.17 L, VLDL Cholesterol 16, HDL Cholesterol 36 L, Cholesterol/HDL Ratio 3.9 H Medical History: Medical History (Updated 12/02/24 @ 16:45 by Willard Nguyễn MD) Atypical pneumonia COPD (chronic obstructive pulmonary disease) Tobacco abuse counseling Tobacco abuse Encounter for screening for malignant neoplasm of lung in current smoker with 30 pack year history or greater Lung nodule Dyspnea on exertion Smoking greater than 30 pack years COPD (chronic obstructive pulmonary disease) Epileptic seizure Tobacco dependence syndrome Assessment and Plan Assessment and plan all Dx Assessment and Plan for all problems:: Pharmacokinetic dosing service Objective: Age: 54 yo Serum creatinine: 0.6 mg/dL Height: 63.0 Inches Weight (kg): 50.349 Diagnosis: PNEUMONIA Assessment: IBW (kg): 52.40 Dosing wt(kg): 50.349 Estimated Creatinine clearance (ml/min): 84.2 CRCL method: Cockcroft and Gault using ibw(default). Drug selected: Vancomycin Vd (liters): 35.2 (factor used: 0.7 L/kg) Luiz (hr-1): 0.074 Half life (hrs): 9.37 CLvanco=?? 2.605 L/hr Recommended dose: 1000 mg Interval: 18 hrs Infusion time (hrs): 2.0 Predicted peak (mcg/mL): 35.9 Predicted trough (mcg/mL): 10.99 Total body weight is being used for vancomycin dosing. Recommendations: Give Vancomycin 1000 mg q 18 hrs with an expected Cpeak of 35.9 mcg/ml and an expected Ctrough of 10.99 mcg/ml AUC 0-24 /NORMA Data: NORMA 0.5 mcg/mL:?? AUC/NORMA:? 1023.7 NORMA 1.0 mcg/mL:?? AUC/NORMA:? 511.8 --------- NORMA 1.5 mcg/mL:?? AUC/NORMA:? 341.2 NORMA 2.0 mcg/mL:?? AUC/NORMA:? 255.9 Thank you for the consult
[2024-12-03] MEDS: levETIRAcetam 500 MG TABLET 1000 MG PO ×2 (08:37→20:17)
[2024-12-03] MEDS: FUROSEMIDE 40MG/4ML VIAL 40 MG IV ×2 (08:38→12:24)
[2024-12-03] MEDS: VANCOMYCIN HCL 1,000 MG in 0.9 % SODIUM CHLORIDE 250 ML 125 MG IV (08:38)
[2024-12-03] MEDS: ENOXAPARIN 60MG/0.6ML SYRINGE 50 MG SUBCUT ×2 (08:38→20:17)
[2024-12-03] MEDS: ASPIRIN EC 81MG TABLET 81 MG PO (08:38)
[2024-12-03 09:17] LABS: Vitamin B12 512 pg/mL (239-931)
--- NOTE | 2024-12-03 09:28 | HMH.PHAINT1 ---
Pharmacy Intervention Comments: MEDICATION RECONCILIATION COMPLETE USING EXTERNAL PHARMACY FILL HISTORY, MD OFFICE VISIT NOTE, AND ISIDRO REPORT.
[2024-12-03 09:48] LABS: Microscopic, Urine URINE MICROSCOPIC (MICROSCOPIC)
[2024-12-03 10:06] LABS: Appearance,Urine CLEAR (Clear); Bilirubin,Urine Negative (Negative); Blood, Urine Negative (Negative); Color,Urine YELLOW (Yellow); Glucose,Urine (UA) Negative (Negative); Ketones,Urine Negative (Negative); Leukocyte Esterase,Urine Negative (Negative); Nitrate,Urine Negative (Negative); Protein,Urine Negative (Negative); Urobilinogen,Urine 0.2 EU/dl (0.2)
[2024-12-03 10:18] LABS: Bacteria,Urine Trace /lpf; WBC,Urine Occasional #/hpf (0-3)
--- NOTE | 2024-12-03 11:30 | EXP.CARD.CON ---
History of Present Illness History of Present Illness Consult date: 12/03/24 Requesting physician: Ruben Walker Chief complaint: SOA History of present illness: 54-year-old white female former office patient of ours last seen in 2018. She has a history of COPD with ongoing tobacco use. She was here at this hospital November 19 with large bilateral PEs, cyanosis, multiorgan failure. She was transferred directly from the ER to the [facility] where she was stabilized and sent home with oxygen which she has not been wearing. She does report she is still heavily smoking. She came back to this facility yesterday complaining of worsening shortness of breath. In the emergency room she had significant elevation of ESR and CRP, troponins were flat at 0.04 x 3, hemoglobin 9, white blood cell count 14,000 then down to 7000 this morning, proBNP 10,400, Pro-Tony and TSH are normal. EKG showed sinus tachycardia 122 bpm. She was requiring 6 L O2 by nasal cannula. CTA chest showed no PE at this time but worsening large right effusion with opacities noted in right middle lobe right lower lobe and patchy infiltrate bilateral upper lobes all consistent with progression of pneumonia. Patient was started on antibiotics and loop diuretics, she reports significant urinary output and feeling significantly better this morning. [facility] Disclaimer: The information contained in this section may have been updated after the patient was seen, as this information can be updated by other users. Medical History Atypical pneumonia COPD (chronic obstructive pulmonary disease) Tobacco abuse counseling Tobacco abuse Encounter for screening for malignant neoplasm of lung in current smoker with 30 pack year history or greater Lung nodule Dyspnea on exertion Smoking greater than 30 pack years COPD (chronic obstructive pulmonary disease) Epileptic seizure Tobacco dependence syndrome Surgical History History of hysterectomy Family History Other Asthma COPD (chronic obstructive pulmonary disease) Hypertension Social History Smoking Status: Current every day smoker tobacco type: cigarettes packs per day: 1 alcohol intake: never substance use type: denies use current occupational status: other Travel in the last 8 weeks: None housing: other caffeine: Yes Have you lived/traveled outside [place] in past 30 days?: No Contact w/someone who lives/traveled outside US past 30 days?: No Exposure to someone with infectious disease in past 14 days?: No Do you have a fever (greater than 100.4 F or 38 C)?: No Have you tested positive for COVID-19: No Exposed to someone with COVID-19 in past 14 days?: No Do you have a sore throat?: No Do you have a cough?: No Do you have any weakness?: No Do you have any diarrhea?: No Are you experiencing any unusual bleeding?: No Do you have any muscle aches/pain?: No Do you have any abdominal pain?: No Are you experiencing loss of taste or smell?: No Review of Systems Constitutional Constitutional: Reports body ache(s), Reports fatigue and Reports weakness Eyes Eyes: Denies loss of vision ENT Ears, Nose, Mouth, and Throat: Denies hearing loss and Denies vertigo *Cardiovascular Cardiovascular: Denies chest pain, Reports dyspnea and Denies syncope *Respiratory Respiratory: Reports cough, Reports dyspnea and Reports wheezing *Gastrointestinal Gastrointestinal: Denies change in stool character, Denies nausea and Denies vomiting *Musculoskeletal Musculoskeletal: Denies muscle weakness Integumentary/Breasts Skin/Breast: Denies changing lesions *Neurologic Neurologic: Denies loss of vision, Denies syncope, Denies vertigo and Reports weakness Endocrine Endocrine: Reports fatigue Allergic/Immunologic Allergic/Immunologic: Reports wheezing Exam Data for Last 24 hours Vital signs and Labs for Last 24 Hours: Temp Pulse Resp BP Pulse Ox O2 Del Method O2 Flow Rate 97.9 F 77 22 100/63 L 94 L Nasal Cannula 4 12/03/24 08:00 12/03/24 08:00 12/03/24 08:00 12/03/24 08:00 12/03/24 08:00 12/03/24 09:00 12/03/24 09:00 Laboratory Results - last 24 hr 12/02/24 09:44: Urine Color Yellow, Urine Appearance Clear, Urine pH 6.0, Ur Specific [place] 1.010, Urine Protein Negative, Urine Glucose (UA) Negative, Urine Ketones Negative, Urine Blood Negative, Urine Nitrate Negative, Urine Bilirubin Negative, Urine Urobilinogen 0.2, Ur Leukocyte Esterase Negative, Urine RBC None, Urine WBC Occasional, Ur Squamous Epith Cells 10-20, Urine Bacteria Trace 12/02/24 14:12: VBG pH 7.34, VBG pCO2 66.9 H, VBG pO2 48.1 H, VBG HCO3 35.5 H, VBG Total CO2 37.6 H, VBG O2 Saturation 80.3 H, VBG Base Excess 9.8 H, VBG Lactic Acid 3.1 H 12/02/24 14:15: WBC 14.1 H, RBC 3.77 L, Hgb 9.8 L, Hct 32.5 L, MCV 86.2, MCH 26.0 L, MCHC 30.2 L, RDW 15.7, Plt Count 455 H, MPV 9.9, Neut % (Auto) 77.8, Lymph % (Auto) 10.7, [place] % (Auto) 10.5 H, Eos % (Auto) 0.1, Baso % (Auto) 0.3, Neut # (Auto) 10.9 H, Lymph # (Auto) 1.5, [place] # (Auto) 1.5 H, Eos # (Auto) 0.0, Baso # (Auto) 0.0, D-Dimer 2.80 H, Sodium 136, Potassium 3.9, Chloride 86 L, Carbon Dioxide 34 H, Anion Gap 19.9 H, BUN 17, Creatinine 0.50 L, Estimated Creat Clear 101, Estimated GFR 128, Est GFR ( Amer) 155, Glucose 147 H, Hemoglobin A1c 5.9, Calcium 9.0, Total Bilirubin 0.5, AST 39 H, ALT 142 H, Alkaline Phosphatase 100, Troponin I 0.04 H, C-Reactive Protein 61.5 H, NT-Pro-B Natriuret Pep 48736 H, Total Protein 7.2, Albumin 3.7, Globulin 3.5 H, Albumin/Globulin Ratio 1.1, TSH 0.93, Thyroxine (T4) 8.1 12/02/24 14:40: SARS-CoV-2 (PCR) Not detected, Influenza A Untype (PCR) Not detected, Influenza Type B (PCR) Not detected 12/02/24 18:36: Lactate 1.2, Troponin I 0.04 H, Procalcitonin 0.243 12/02/24 20:56: Troponin I 0.04 H 12/03/24 05:51: WBC 7.2 D, RBC 3.48 L, Hgb 9.1 L, Hct 29.7 L, MCV 85.3, MCH 26.1 L, MCHC 30.6 L, RDW 15.6, Plt Count 385, MPV 9.9, Neut % (Auto) 84.0 H, Lymph % (Auto) 8.5 L, [place] % (Auto) 6.0, Eos % (Auto) 0.0 L, Baso % (Auto) 0.1, Neut # (Auto) 6.0, Lymph # (Auto) 0.6 L, [place] # (Auto) 0.4, Eos # (Auto) 0.0, Baso # (Auto) 0.0, ESR 78 H, Sodium 133 L, Potassium 4.1, Chloride 87 L, Carbon Dioxide 36 H, Anion Gap 14.1, BUN 14, Creatinine 0.60, Estimated Creat Clear 84, Estimated GFR 104, Est GFR ( Amer) 126, Glucose 221 H D, Hemoglobin A1c 5.8, Calcium 8.1 L, Magnesium 1.6, Iron 36 L, TIBC 341, Iron Saturation 10.56111 L, Ferritin 86.6, Total Bilirubin 0.3, AST 36, ALT 107 H, Alkaline Phosphatase 81, C-Reactive Protein 42.6 H D, Total Protein 6.0 L, Albumin 3.1 L D, Globulin 2.9, Albumin/Globulin Ratio 1.1, Triglycerides 78, Cholesterol 142, LDL Cholesterol Direct 89.17 L, VLDL Cholesterol 16, HDL Cholesterol 36 L, Cholesterol/HDL Ratio 3.9 H, Vitamin B12 512, Folate 12.20 I & O for Last 24 hours: Intake & Output 11/30/24 12/01/24 12/02/24 12/03/24 23:59 23:59 23:59 23:59 Intake Total 360 / 360 Output Total 500 / 500 Balance -140 / -140 Weight 111 lb 111 lb 0.009 oz Constitutional Constitutional: no acute distress and cooperative *Routine HEENT Exam Eye: Present PERRL *Routine Respiratory Exam Respiratory: Present CTA bilaterally; Absent accessory muscle use, wheezes or crackles Comments: reduced breath sounds throughout but not significantly worse on the right *Routine Cardiovascular Exam Cardiovascular: Present RRR, Normal S1 and Normal S2; Absent murmur, gallop or rubs *Routine Abdominal Exam Abdominal: Present soft; Absent tenderness *Routine Extremities Exam Extremities: Present pulses intact; Absent cyanosis or edema *Routine Skin Exam Skin: Present intact; Absent erythema or wounds *Routine Neurological Exam Neurological: Present alert and oriented X3 Routine Psychiatric Exam Psychiatric: Present cooperative Meds Home Medications and Allergies Home Medications ?Medication ?Instructions ?Recorded ?Confirmed ?Type levetiracetam 1,000 mg tablet 1,000 mg PO Q12H 09/26/22 12/03/24 History baclofen 10 mg tablet 10 mg PO TID #90 tabs 09/17/24 12/03/24 Rx albuterol sulfate 90 mcg/actuation 4 puff inhalation Q4HP PRN 12/02/24 12/03/24 History aerosol inhaler (Ventolin HFA) Shortness Of Breath Or Wheezing apixaban 5 mg tablet (Eliquis) 5 mg PO BID 12/02/24 12/03/24 History budesonide-formoterol HFA 80 1 puff inhalation BIDRT 12/02/24 12/03/24 History mcg-4.5 mcg/actuation aerosol inhaler (Symbicort) cariprazine 1.5 mg capsule 1.5 mg PO DAILY 12/02/24 12/03/24 History (Vraylar) ergocalciferol (vitamin D2) 1,250 1,250 mcg PO WEEKLY 12/02/24 12/03/24 History mcg (50,000 unit) capsule (Vitamin D2) ropinirole 1 mg tablet 1 mg PO HS 12/02/24 12/03/24 History diazepam 2 mg tablet (Valium) 2 mg PO DAILYP PRN anxiety 12/03/24 12/03/24 History hydrocodone 5 mg-acetaminophen 325 1 tab PO TIDP PRN Severe Pain 12/03/24 12/03/24 History mg tablet (Scale Score 7-10) lisinopril 20 mg tablet 20 mg PO BID 12/03/24 12/03/24 History New Prescriptions to Start Prescriptions: Allergies Allergy/AdvReac Type Severity Reaction Status Date / Time No Known Allergies Allergy Verified 08/08/24 13:15 Assessment and Plan *Assessment and plan (1) Acute on chronic respiratory failure with hypoxia and hypercapnia: Status: Acute Category: Medical Code(s): J96.21 - Acute and chronic respiratory failure with hypoxia; J96.22 - Acute and chronic respiratory failure with hypercapnia (2) COPD exacerbation: Status: Acute Category: Medical Code(s): J44.1 - Chronic obstructive pulmonary disease with (acute) exacerbation (3) Multiple pulmonary emboli: Status: Acute Category: Medical Code(s): I26.99 - Other pulmonary embolism without acute cor pulmonale (4) Pneumonia: Status: Acute Category: Medical Code(s): J18.9 - Pneumonia, unspecified organism (5) Pleural effusion: Status: Acute Category: Medical Code(s): J90 - Pleural effusion, not elsewhere classified (6) Elevated troponin: Status: Acute Category: Medical Code(s): R79.89 - Other specified abnormal findings of blood chemistry (7) Acute on chronic heart failure with preserved ejection fraction (HFpEF): Status: Acute Category: Medical Code(s): I50.33 - Acute on chronic diastolic (congestive) heart failure Plan Severe Acute on Chronic Right Heart Failure w/Cor Pulmonale - SESAY, ProBNP 10k, large right effusion, acute on chronic hypoxia with tob use, recent PE, ongoing multilobe pneumonia - no known heart disease - ECHO here shows severe RV dysfunction, severe RA/RV dilation, moderate TR, and RVSP 60mmHg - increase Lasix to 40mg BID, measure strict I/O, add Isordil 10mg TID Large Right Pleural Effusion - likely secondary to PNA and HF - continue diuresis - consider thoracentesis if not improving Acute on Chronic Hypoxic Resp Failure - secondary to PNA, Large Right Effusion, HFpEF - continue diuretics, antibiotics, supplemental O2 - further plans pending ECHO results Recent Bilateral PEs - pt denies procedure such as thrombectomy/thrombolysis at but she is neg for PEs here - treatment dose Eliquis changed to Lovenox while inpatient - possible thoracentesis pending 12/03: Severe RHF as noted above. Cont Abx, diuresis, add Isordil 10mg TID as vasodilator for severe PHtn. Can add Dobutamine if she becomes hypotensive.
[2024-12-03] MEDS: BACLOFEN 10MG TABLET 10 MG PO ×2 (12:24→20:17)
--- NOTE | 2024-12-03 12:57 | P.PN_ITS ---
Subjective *Date: 12/03/24 *Time: 12:57 Interval history: Still remains short of breath this morning. On 4 L oxygen. Afebrile. No nausea or vomiting. Alert and oriented x 3. Family at bedside. Medical Exam Vital signs and Labs for Last 24 Hours: Vital Signs Temp Pulse Pulse Resp BP BP Pulse Ox 12/03/24 12:50 87 12/03/24 12:50 88 12/03/24 11:00 12/03/24 09:00 12/03/24 08:00 12/03/24 08:00 97.9 F 77 22 100/63 L 94 L 12/03/24 06:42 12/03/24 06:27 102 H 12/03/24 06:27 106 H 12/03/24 06:27 97 12/03/24 05:00 12/03/24 04:00 97.4 F L 99 H 16 106/66 L 97 12/03/24 03:00 12/03/24 01:00 12/03/24 00:13 104 H 20 12/03/24 00:13 104 H 12/03/24 00:13 107 H 12/03/24 00:00 98.3 F 101 H 14 123/68 97 12/02/24 23:55 99 12/02/24 23:00 12/02/24 21:00 12/02/24 20:59 12/02/24 19:54 97.7 F 108 H 14 121/85 100 12/02/24 19:00 12/02/24 17:02 98.2 F 115 H 20 126/91 H 12/02/24 16:00 18 135/98 H 100 12/02/24 15:30 120 H 24 126/88 99 12/02/24 15:00 127 H 31 H 142/96 H 90 L 12/02/24 14:30 125 H 27 H 126/88 100 12/02/24 14:23 98.5 F 126 H 20 153/100 H 87 L O2 Del Method O2 Flow Rate 12/03/24 12:50 12/03/24 12:50 12/03/24 11:00 Room Air 12/03/24 09:00 Nasal Cannula 4 12/03/24 08:00 Nasal Cannula 4 12/03/24 08:00 Nasal Cannula 4 12/03/24 06:42 Nasal Cannula 4 12/03/24 06:27 12/03/24 06:27 12/03/24 06:27 Nasal Cannula 4 12/03/24 05:00 Nasal Cannula 4 12/03/24 04:00 Room Air 12/03/24 03:00 Nasal Cannula 4 12/03/24 01:00 Nasal Cannula 4 12/03/24 00:13 12/03/24 00:13 12/03/24 00:13 12/03/24 00:00 Room Air 12/02/24 23:55 Nasal Cannula 6 12/02/24 23:00 Nasal Cannula 6 12/02/24 21:00 Nasal Cannula 6 12/02/24 20:59 Nasal Cannula 6 12/02/24 19:54 Nasal Cannula 6 12/02/24 19:00 Nasal Cannula 6 12/02/24 17:02 Nasal Cannula 6 12/02/24 16:00 12/02/24 15:30 12/02/24 15:00 12/02/24 14:30 12/02/24 14:23 Room Air Intake and Output 12/02/24 12/03/24 12/03/24 23:59 07:59 15:59 Intake Total 360 / 360 Output Total 0 / 500 500 / 500 Balance 0 / -140 -140 / -140 Intake: Intake, Oral Amount 360 / 360 Output: Output, Urine Amount 0 / 500 500 / 500 Other: Number of Unmeasured Voids 0 Weight 50.349 kg 50.349 kg Patient Weight 12/03/24 23:59 Weight 50.349 kg Laboratory Results - last 24 hr 12/02/24 09:44: Urine Color Yellow, Urine Appearance Clear, Urine pH 6.0, Ur Specific [place] 1.010, Urine Protein Negative, Urine Glucose (UA) Negative, Urine Ketones Negative, Urine Blood Negative, Urine Nitrate Negative, Urine Bilirubin Negative, Urine Urobilinogen 0.2, Ur Leukocyte Esterase Negative, Urine RBC None, Urine WBC Occasional, Ur Squamous Epith Cells 10-20, Urine Bacteria Trace 12/02/24 14:12: VBG pH 7.34, VBG pCO2 66.9 H, VBG pO2 48.1 H, VBG HCO3 35.5 H, VBG Total CO2 37.6 H, VBG O2 Saturation 80.3 H, VBG Base Excess 9.8 H, VBG Lactic Acid 3.1 H 12/02/24 14:15: WBC 14.1 H, RBC 3.77 L, Hgb 9.8 L, Hct 32.5 L, MCV 86.2, MCH 26.0 L, MCHC 30.2 L, RDW 15.7, Plt Count 455 H, MPV 9.9, Neut % (Auto) 77.8, Lymph % (Auto) 10.7, [place] % (Auto) 10.5 H, Eos % (Auto) 0.1, Baso % (Auto) 0.3, Neut # (Auto) 10.9 H, Lymph # (Auto) 1.5, [place] # (Auto) 1.5 H, Eos # (Auto) 0.0, Baso # (Auto) 0.0, D-Dimer 2.80 H, Sodium 136, Potassium 3.9, Chloride 86 L, Carbon Dioxide 34 H, Anion Gap 19.9 H, BUN 17, Creatinine 0.50 L, Estimated Creat Clear 101, Estimated GFR 128, Est GFR ( Amer) 155, Glucose 147 H, Hemoglobin A1c 5.9, Calcium 9.0, Total Bilirubin 0.5, AST 39 H, ALT 142 H, Alkaline Phosphatase 100, Troponin I 0.04 H, C-Reactive Protein 61.5 H, NT-Pro-B Natriuret Pep 05759 H, Total Protein 7.2, Albumin 3.7, Globulin 3.5 H, Albumin/Globulin Ratio 1.1, TSH 0.93, Thyroxine (T4) 8.1 12/02/24 14:40: SARS-CoV-2 (PCR) Not detected, Influenza A Untype (PCR) Not detected, Influenza Type B (PCR) Not detected 12/02/24 18:36: Lactate 1.2, Troponin I 0.04 H, Procalcitonin 0.243 12/02/24 20:56: Troponin I 0.04 H 12/03/24 05:51: WBC 7.2 D, RBC 3.48 L, Hgb 9.1 L, Hct 29.7 L, MCV 85.3, MCH 26.1 L, MCHC 30.6 L, RDW 15.6, Plt Count 385, MPV 9.9, Neut % (Auto) 84.0 H, Lymph % (Auto) 8.5 L, [place] % (Auto) 6.0, Eos % (Auto) 0.0 L, Baso % (Auto) 0.1, Neut # (Auto) 6.0, Lymph # (Auto) 0.6 L, [place] # (Auto) 0.4, Eos # (Auto) 0.0, Baso # (Auto) 0.0, ESR 78 H, Sodium 133 L, Potassium 4.1, Chloride 87 L, Carbon Dioxide 36 H, Anion Gap 14.1, BUN 14, Creatinine 0.60, Estimated Creat Clear 84, Estimated GFR 104, Est GFR ( Amer) 126, Glucose 221 H D, Hemoglobin A1c 5.8, Calcium 8.1 L, Magnesium 1.6, Iron 36 L, TIBC 341, Iron Saturation 10.02318 L, Ferritin 86.6, Total Bilirubin 0.3, AST 36, ALT 107 H, Alkaline Phosphatase 81, C-Reactive Protein 42.6 H D, Total Protein 6.0 L, Albumin 3.1 L D, Globulin 2.9, Albumin/Globulin Ratio 1.1, Triglycerides 78, Cholesterol 142, LDL Cholesterol Direct 89.17 L, VLDL Cholesterol 16, HDL Cholesterol 36 L, Cholesterol/HDL Ratio 3.9 H, Vitamin B12 512, Folate 12.20 I & O for Labs for Last 24 Hours: Intake & Output 11/30/24 12/01/24 12/02/24 12/03/24 23:59 23:59 23:59 23:59 Intake Total 360 / 360 Output Total 500 / 500 Balance -140 / -140 Weight 50.349 kg 50.349 kg Constitutional: Present mild distress, cachectic and chronically ill appearing Head: Present atraumatic and normocephalic ENT: Present normal exam Respiratory: Present accessory muscle use, rhonchi and crackles; Absent wheezes Comment:: Adventitious sounds in right lung field Cardiac: Present Reg Rate and Rhythm GI: Present soft and normal bowel sounds; Absent distention or tenderness Extremities: Present normal inspection and full ROM Skin: Present intact; Absent erythema Neuro: Present Grossly Intact, alert, awake, oriented x 3 and moves all extremities Assessment and Plan *Assessment and plan (1) Acute on chronic respiratory failure with hypoxia and hypercapnia: Status: Acute Category: Medical Code(s): J96.21 - Acute and chronic respiratory failure with hypoxia; J96.22 - Acute and chronic respiratory failure with hypercapnia (2) Acute on chronic heart failure with preserved ejection fraction (HFpEF): Status: Acute Category: Medical Code(s): I50.33 - Acute on chronic diastolic (congestive) heart failure (3) Pleural effusion: Status: Acute Category: Medical Code(s): J90 - Pleural effusion, not elsewhere classified (4) Pneumonia: Status: Acute Category: Medical Code(s): J18.9 - Pneumonia, unspecified organism (5) Acute right-sided heart failure: Status: Acute Category: Medical Code(s): I50.811 - Acute right heart failure (6) Multiple pulmonary emboli: Status: Acute Category: Medical Code(s): I26.99 - Other pulmonary embolism without acute cor pulmonale (7) Severe protein-calorie malnutrition: Status: Acute Category: Medical Code(s): E43 - Unspecified severe protein-calorie malnutrition Plan Rocio Gonzalez is a 54 year old female with medical history significant for COPD on room air, current tobacco smoker, bilateral PEs, anxiety/depression, seizure disorder, medication nonadherence who presents with progressive shortness of breath over the past week. Patient recently presented to our facility earlier this month with similar symptoms, found to have bilateral PEs with RV strain, pneumonia, and septic shock including shock liver requiring intubation and transferred to higher level care to [facility]. Patient states she was discharged with oxygen but was not wearing it consistently at home. She also states she has been smoking profusely at home since discharge, was motivated to quit at [place]. Workup in the ED significant for WBC 14.1, hemoglobin 9.8, AGAP 19.1, troponin 0.04, proBNP 10,400. CTA chest however did not reveal PE, but did show worsening multifocal pneumonia. Requiring 6 L nasal cannula. Case discussed with ED provider and decision was made to admit patient for acute hypoxic respiratory failure secondary to worsening multifocal pneumonia. Stable on 4 L oxygen. Continues to require patient manage cardiology assisting with care due to component of CHF. Problems addressed as follows: #Acute hypoxic respiratory failure #Suspected hospital-acquired pneumonia #Multifocal pneumonia #Right pleural effusion #History of bilateral pulmonary emboli #Cor pulmonale, right heart failure #HFpEF exacerbation ? Presents with progressive shortness of breath, worsening lower extremity edema after recent discharge from [facility] for similar presentation. ? Oddly, CTA chest on admission does not show previous pulmonary emboli. Patient does seem to have a chronic dilated right heart on previous echoes. ? Initial BNP 10,400, patient endorses worsening lower extremity pitting edema and pain. Continue Lasix 40 mg daily White count improved to 7.2 today. Hemoglobin 9.1.-CRP down from 61-42. ESR 78. -Continue vancomycin IV and cefepime IV every 8 hours. Monitor for toxicity. -Repeat CBC, CMP, magnesium ordered for the morning ? Therapeutic Lovenox for now with history of PEs, and current hypoxia. ? Discussed case with cardiology, recommend further management pending echo findings. Echo obtained, formal read still pending.. ? Does have moderate to large right-sided pleural effusion, if unable to wean oxygen, will consider IR consult for thoracentesis. ? Follow-up ECHO to evaluate for RV strain. ? Follow-up bilateral lower extremity Dopplers to rule out DVTs. ? Follow-up sputum, blood cultures. #NSTEMI, likely type II ? Initial troponin 0.04, follow-up trend. EKG without acute ischemic changes. ? Likely type II in the setting of demand ischemia from sepsis, history of PEs. ? Aspirin 81 mg. #Chronic normocytic anemia ? Hemoglobin 9.1 today. Suspect secondary to chronic disease. Iron studies and folate and B12 still pending #COPD: DuoNebs every 6 hours. #Seizure disorder: Continue home Keppra 1000 mg twice daily. #Anxiety/depression: Continue Valium at decreased dose given concurrent use with opiate therapy. 1 mg daily as needed. Continue Vraylar 1.5 mg daily. #Current tobacco smoker: Has nicotine patch daily. Patient is motivated to quit. Full code DVT prophylaxis: Therapeutic Lovenox as above. Regular diet
--- NOTE | 2024-12-03 17:33 | PC.NURSE ---
patient is a/ox4 and currently on 3LNC tolerating well. o2 sats <90%. patient has ambulated to the bathroom via stand by assist and has had several unmeasured voids. pt has no c/o chest pain or SOB this shift. patient is tolerating diet well. call light within reach. patient is currently eating dinner. plan of care on going.
--- NOTE | 2024-12-03 17:59 | PC.NURSE ---
patient O2 sat on 2 LNC is 93%
[2024-12-03] MEDS: ISOSORBIDE DINITRATE 10 MG TABLET PO (20:17)
[2024-12-03] MEDS: ROPINIROLE 1MG TABLET 1 MG PO (20:17)
[2024-12-03] MEDS: MAGNESIUM SULFATE IN WATER 2 GM/50 ML PIGGYBACK IV ×2 (21:05→21:59)
[2024-12-04] VITALS (9 sets, daily range): BP systolic 89–115; BP diastolic 56–68; PULSE 54–112; RESP 16–18; TEMP 36.6–36.8; O2SAT 2–97; BMI 15.9
[2024-12-04] MEDS: VANCOMYCIN HCL 1,000 MG in 0.9 % SODIUM CHLORIDE 250 ML 125 MG IV (01:36)
--- NOTE | 2024-12-04 02:41 | PC.NURSE ---
Pt AOx4, doing well this shift. Pt maintaining o2 stat on 2L O2. Denies pain or any additional needs. Respirations even and unlabored. Bed is low, locked, and call light is in reach.
[2024-12-04] MEDS: CEFEPIME HCL 2 GM in 0.9 % SODIUM CHLORIDE 100 ML IV (03:42)
[2024-12-04] MEDS: IPRATROPIUM/ALBUTEROL 3 ML NEB IH ×2 (06:17→11:00)
[2024-12-04 06:40] LABS: Albumin Level 2.8 g/dl (3.5-5.0); Chloride 90 mmol/L (98-107); Sodium 135 mmol/L (136-145)
[2024-12-04 06:43] LABS: Alanine Aminotransferase 83 U/L (12-78); Alkaline Phosphatase 91 U/L (38-126); Aspartate Amino Transferase 28 U/L (14-36); Bilirubin,Total 0.2 mg/dl (0.2-1.3); Blood Urea Nitrogen 20 mg/dl (7-17); Creatinine Clearance Estimated 68 mL/min (50-200); Estimated Glomerular Filt Rate 104 ml/min (>60); GFR (African American) 126 ML/MIN (>60); Globulin 2.8 g/dL (1.3-3.2); Potassium 3.7 mmoL/L (3.5-5.1); Total Protein,Serum 5.6 g/dl (6.3-8.2)
[2024-12-04 06:44] LABS: Calcium 7.8 mg/dl (8.4-10.2); Glucose 89 mg/dl (74-100); Magnesium 2.3 mg/dl (1.6-2.3)
[2024-12-04 06:50] LABS: C-Reactive Protein 24.5 mg/L (0-4)
[2024-12-04 06:51] LABS: Anion Gap 8.7 mEq/L (5-15); Carbon Dioxide 40 mmol/L (22.0-30.0)
[2024-12-04 07:46] LABS: Erythrocyte Sedimentation Rate 53 mm/hr (0-30)
[2024-12-04] MEDS: ISOSORBIDE DINITRATE 10 MG TABLET PO ×2 (08:50→12:01)
[2024-12-04] MEDS: FUROSEMIDE 40MG/4ML VIAL 40 MG IV (08:50)
[2024-12-04] MEDS: ASPIRIN EC 81MG TABLET 81 MG PO (08:51)
[2024-12-04] MEDS: levETIRAcetam 500 MG TABLET 1000 MG PO (08:51)
[2024-12-04] MEDS: BACLOFEN 10MG TABLET 10 MG PO ×2 (08:51→12:01)
[2024-12-04] MEDS: ENOXAPARIN 60MG/0.6ML SYRINGE 50 MG SUBCUT (08:51)
--- NOTE | 2024-12-04 09:42 | P.DS_ITS ---
General Admission date:: 12/02/24 Discharge date: 12/04/24 HPI HPI HPI: Rocio Gonzalez is a 54 year old female with medical history significant for COPD on room air, current tobacco smoker, bilateral PEs, anxiety/depression, seizure disorder, medication nonadherence who presents with progressive shortness of breath over the past week. Patient recently presented to our facility earlier this month with similar symptoms, found to have bilateral PEs with RV strain, pneumonia, and septic shock including shock liver requiring intubation and transferred to higher level care to [facility]. Patient states she was discharged with oxygen but was not wearing it consistently at home. She also states she has been smoking profusely at home since discharge, was motivated to quit at [facility]. Workup in the ED significant for WBC 14.1, hemoglobin 9.8, AGAP 19.1, troponin 0.04, proBNP 10,400. CTA chest however did not reveal PE, but did show worsening multifocal pneumonia. Requiring 6 L nasal cannula. Case discussed with ED provider and decision was made to admit patient for acute hypoxic respiratory failure secondary to worsening multifocal pneumonia. Hospital Course Hospital Course Hospital Course: Rocio Gonzalez is a 54 year old female with medical history significant for COPD on room air, current tobacco smoker, bilateral PEs, anxiety/depression, seizure disorder, medication nonadherence who presents with progressive shortness of breath over the past week. Patient recently presented to our facility earlier this month with similar symptoms, found to have bilateral PEs with RV strain, pneumonia, and septic shock including shock liver requiring intubation and transferred to higher level care to [facility]. Patient states she was discharged with oxygen but was not wearing it consistently at home. She also states she has been smoking profusely at home since discharge, was motivated to quit at [facility]. Workup in the ED significant for WBC 14.1, hemoglobin 9.8, AGAP 19.1, troponin 0.04, proBNP 10,400. CTA chest however did not reveal PE, but did show worsening multifocal pneumonia. Initially required 6 L nasal cannula oxygen. Initiated on antibiotics and treated for CHF exacerbation in conjunction with COPD exacerbation and pneumonia. Showed good response. Able to wean to 2 L oxygen by morning of discharge which is patient's baseline oxygen. Inflammatory markers showing improvement. Medically stable to discharge home and have close follow-up as an outpatient for further management. Problems addressed as follows: #Acute hypoxic respiratory failure #Suspected hospital-acquired pneumonia #Multifocal pneumonia #Right pleural effusion #History of bilateral pulmonary emboli #Cor pulmonale, right heart failure #HFpEF exacerbation ? Presents with progressive shortness of breath, worsening lower extremity edema after recent discharge from [facility] for similar presentation. Oddly, CTA chest on admission does not show previous pulmonary emboli. Patient does seem to have a chronic dilated right heart on previous echoes. Initial BNP 10,400, patient endorses worsening lower extremity pitting edema and pain. Initiated on diuretics. Cardiology to assist with care. She appears euvolemic at this time after diuresis during hospitalization, will continue isosorbide dinitrate 10 mg 3 times a day, lisinopril is on hold time, continue ropinirole nightly. Needs close follow-up with cardiology for further adjustment. White count normal on day of discharge. CRP improving and down from 61-24 by day of discharge, ESR improved to 53. Initially treated with broad-spectrum antibiotics with vancomycin and cefepime, weaned to Levaquin to complete 7-day course. ? Echo obtained showing preserved ejection fraction, has severe RV dilation with severe reduction in RV function. Will continue Lasix 40 mg IV once daily. Will need further adjustment as an outpatient. #NSTEMI, likely type II ? Initial troponin 0.04. Plateaued. EKG did not show ischemic changes. Suspect type II NSTEMI in the setting of demand ischemia from her sepsis. Cardiology was consulted, no plan for any intervention. Recommend recovering from acute illness and consider ischemic workup as an outpatient. Continue Eliquis 5 mg twice daily for chronic PEs. #Chronic normocytic anemia: Hemoglobin stable during admission. 9-10. Suspect secondary to chronic disease. Mildly low iron. Consider iron supplementation as an outpatient. Folate and B12 normal. #COPD: Continue: Continue albuterol inhaler as needed every 4-6 hours. Also refilled nebulizer solution, patient has nebulizer at home. Continue Symbicort. #Seizure disorder: Continue home Keppra 1000 mg twice daily. #Anxiety/depression: Treated with reduced during admission, recommend considering reduction of dose as an outpatient due to concurrent benzo and opiate use. High risk for respiratory symptoms given her respiratory failure/COPD. Continue Vraylar 1.5 mg daily. #Current tobacco smoker: Has nicotine patch daily. Patient is motivated to quit. Room air saturation of 82% at rest on day of discharge. Continue supplemental oxygen 2 L continuously via nasal cannula Exam Data for Last 24 hours Vital signs and Labs for Last 24 Hours: Temp Pulse Resp BP Pulse Ox O2 Del Method O2 Flow Rate 97.9 F 109 H 18 100/67 L 2 L Nasal Cannula 2 12/04/24 08:00 12/04/24 08:00 12/04/24 08:00 12/04/24 08:00 12/04/24 08:00 12/04/24 08:00 12/04/24 08:00 Laboratory Results - last 24 hr 12/02/24 09:44: Urine Color Yellow, Urine Appearance Clear, Urine pH 6.0, Ur Specific Alsey 1.010, Urine Protein Negative, Urine Glucose (UA) Negative, Urine Ketones Negative, Urine Blood Negative, Urine Nitrate Negative, Urine Bilirubin Negative, Urine Urobilinogen 0.2, Ur Leukocyte Esterase Negative, Urine RBC None, Urine WBC Occasional, Ur Squamous Epith Cells 10-20, Urine Bacteria Trace 12/04/24 06:04: ESR 53 H, Sodium 135 L, Potassium 3.7, Chloride 90 L, Carbon Dioxide 40 H, Anion Gap 8.7, BUN 20 H D, Creatinine 0.60, Estimated Creat Clear 68, Estimated GFR 104, Est GFR ( Amer) 126, Glucose 89, Calcium 7.8 L, Magnesium 2.3 D, Ferritin 61.0 D, Total Bilirubin 0.2, AST 28, ALT 83 H, Alkaline Phosphatase 91, C-Reactive Protein 24.5 H D, Total Protein 5.6 L, Albumin 2.8 L, Globulin 2.8, Albumin/Globulin Ratio 1.0 L I & O for Last 24 hours: Intake & Output 12/01/24 12/02/24 12/03/24 12/04/24 23:59 23:59 23:59 23:59 Intake Total 1080 / 1080 270 / 270 Output Total 500 / 500 0 / 0 Balance 580 / 580 270 / 270 Weight 50.349 kg 50.349 kg 40.823 kg Microbiology Reports for the Last 24 Hours: Microbiology 12/02/24 15:15 Blood Blood Culture - Preliminary NO GROWTH AFTER 24 HOURS 12/02/24 15:10 Blood Blood Culture - Preliminary NO GROWTH AFTER 24 HOURS 12/02/24 09:30 Sputum - Expectorated Sputum Gram Stain - Final Constitutional Constitutional: no acute distress, cachectic, chronically ill appearing and cooperative *Routine HEENT Exam Head: Present normocephalic and atraumatic Eye: Present EOMI and PERRL ENT: Present mucous membranes moist *Routine Neck Exam Neck: Present supple *Routine Respiratory Exam Respiratory: Present prolonged expiratory phase, wheezes, diminished air movement and normal respiratory effort; Absent accessory muscle use or crackles *Routine Cardiovascular Exam Cardiovascular: Present RRR, Normal S1 and Normal S2; Absent murmur, gallop or rubs *Routine Abdominal Exam Abdominal: Present soft; Absent tenderness *Routine Rectal Exam Patient deferred: visual exam *Routine Exam Patient deferred: external exam *Routine Extremities Exam Extremities: Present pulses intact; Absent cyanosis or edema *Routine Skin Exam Skin: Present intact; Absent erythema or wounds *Routine Neurological Exam Neurological: Present alert, oriented X3 and moving all extremities; Absent altered mental status Routine Psychiatric Exam Psychiatric: Present cooperative Results Data Completed and Pending Labs on day of discharge: Labs from last 24 hours 12/04/24 12/02/24 06:04 09:44 ESR 53 H Sodium 135 L Potassium 3.7 Chloride 90 L Carbon Dioxide 40 H Anion Gap 8.7 BUN 20 H D Creatinine 0.60 Estimated Creat Clear 68 Estimated GFR 104 Est GFR ( Amer) 126 Glucose 89 Calcium 7.8 L Magnesium 2.3 D Ferritin 61.0 D Total Bilirubin 0.2 AST 28 ALT 83 H Alkaline Phosphatase 91 C-Reactive Protein 24.5 H D Total Protein 5.6 L Albumin 2.8 L Globulin 2.8 Albumin/Globulin Ratio 1.0 L Urine Color Yellow Urine Appearance Clear Urine pH 6.0 Ur Specific Alsey 1.010 Urine Protein Negative Urine Glucose (UA) Negative Urine Ketones Negative Urine Blood Negative Urine Nitrate Negative Urine Bilirubin Negative Urine Urobilinogen 0.2 Ur Leukocyte Esterase Negative Urine RBC None Urine WBC Occasional Ur Squamous Epith Cells 10-20 Urine Bacteria Trace Preliminary micro results at discharge 12/02/24 15:15 Blood Culture - Preliminary Blood NO GROWTH AFTER 24 HOURS 12/02/24 15:10 Blood Culture - Preliminary Blood NO GROWTH AFTER 24 HOURS DS: Diagnosis Discharge Diagnosis (1) Acute on chronic respiratory failure with hypoxia and hypercapnia: Status: Acute Code(s): J96.21 - Acute and chronic respiratory failure with hypoxia; J96.22 - Acute and chronic respiratory failure with hypercapnia (2) COPD exacerbation: Status: Acute Code(s): J44.1 - Chronic obstructive pulmonary disease with (acute) exacerbation (3) Multiple pulmonary emboli: Status: Acute Code(s): I26.99 - Other pulmonary embolism without acute cor pulmonale (4) Pneumonia: Status: Acute Code(s): J18.9 - Pneumonia, unspecified organism (5) Pleural effusion: Status: Acute Code(s): J90 - Pleural effusion, not elsewhere classified (6) Elevated troponin: Status: Acute Code(s): R79.89 - Other specified abnormal findings of blood chemistry (7) Acute on chronic heart failure with preserved ejection fraction (HFpEF): Status: Acute Code(s): I50.33 - Acute on chronic diastolic (congestive) heart failure Meds Home Medications and Allergies Home Medications ?Medication ?Instructions ?Recorded ?Confirmed ?Type levetiracetam 1,000 mg tablet 1,000 mg PO Q12H 09/26/22 12/03/24 History baclofen 10 mg tablet 10 mg PO TID #90 tabs 09/17/24 12/03/24 Rx albuterol sulfate 90 mcg/actuation 4 puff inhalation Q4HP PRN 12/02/24 12/03/24 History aerosol inhaler (Ventolin HFA) Shortness Of Breath Or Wheezing apixaban 5 mg tablet (Eliquis) 5 mg PO BID 12/02/24 12/03/24 History budesonide-formoterol HFA 80 1 puff inhalation BIDRT 12/02/24 12/03/24 History mcg-4.5 mcg/actuation aerosol inhaler (Symbicort) cariprazine 1.5 mg capsule 1.5 mg PO DAILY 12/02/24 12/03/24 History (Vraylar) ergocalciferol (vitamin D2) 1,250 1,250 mcg PO WEEKLY 12/02/24 12/03/24 History mcg (50,000 unit) capsule (Vitamin D2) ropinirole 1 mg tablet 1 mg PO HS 12/02/24 12/03/24 History diazepam 2 mg tablet (Valium) 2 mg PO DAILYP PRN anxiety 12/03/24 12/03/24 History hydrocodone 5 mg-acetaminophen 325 1 tab PO TIDP PRN Severe Pain 12/03/24 12/03/24 History mg tablet (Scale Score 7-10) lisinopril 20 mg tablet 20 mg PO BID 12/03/24 12/03/24 History ipratropium 0.5 mg-albuterol 3 mg 3 ml inhalation Q6HP PRN shortness 12/04/24 Rx (2.5 mg base)/3 mL nebulization of breath or wheezing 30 days #180 soln mL isosorbide dinitrate 10 mg tablet 10 mg PO TID 30 days #90 tabs 12/04/24 Rx levofloxacin 750 mg tablet 750 mg PO DAILY #4 tabs 12/04/24 Rx furosemide 40 mg tablet (Lasix) 40 mg PO DAILY #30 tabs 12/08/24 Rx New Prescriptions to Start Prescriptions: furosemide [Lasix] Jordan Beck ipratropium-albuterol Kiran,Jordan isosorbide dinitrate Kiran,Jordan levofloxacin Jordan Beck Allergies Allergy/AdvReac Type Severity Reaction Status Date / Time No Known Allergies Allergy Verified 08/08/24 13:15 Discharge Plan Disposition Patient Disposition: Home, Self-Care Condition: Fair Discharge Order Discharge Orders: Discharge Order (Routine); Ordered 12/04/24 Ordered By: Jordan Beck Follow up Plan Follow up with: José Liriano APRN [Nurse Practitioner] - 12/10/24 1:00 pm Severo Haddad MD [Staff Physician] - 12/18/24 1:45 pm Prescriptions/Medication Reconciliation: New levofloxacin 750 mg tablet 750 mg PO DAILY Qty: 4 0RF Rx Instructions: first dose morning of 12/05/24 isosorbide dinitrate 10 mg Tablet 10 mg PO TID 30 Days Qty: 90 0RF ipratropium-albuterol 0.5 mg-3 mg(2.5 mg base)/3 mL Solution For Nebulization 3 ml inhalation Q6HP PRN (Reason: shortness of breath or wheezing) 30 Days Qty: 180 0RF furosemide [Lasix] 40 mg tablet 40 mg PO DAILY Qty: 30 0RF Continued levetiracetam 1,000 mg tablet 1,000 mg PO Q12H baclofen 10 mg tablet 10 mg PO TID Qty: 90 2RF Eliquis 5 mg tablet 5 mg PO BID ergocalciferol (vitamin D2) [Vitamin D2] 1,250 mcg (50,000 unit) capsule 1,250 mcg PO WEEKLY budesonide-formoterol [Symbicort] 80-4.5 mcg/actuation HFA aerosol inhaler 1 puff INHALATION BIDRT albuterol sulfate [Ventolin HFA] 90 mcg/actuation HFA aerosol inhaler 4 puff inhalation Q4HP PRN (Reason: Shortness Of Breath Or Wheezing) ropinirole 1 mg tablet 1 mg PO HS Vraylar 1.5 mg capsule 1.5 mg PO DAILY hydrocodone-acetaminophen 5-325 mg Tablet 1 tab PO TIDP PRN (Reason: Severe Pain (Scale Score 7-10)) diazepam [Valium] 2 mg tablet 2 mg PO DAILYP PRN (Reason: anxiety) Rx Instructions: +++THIS IS A MONTHLY AMOUNT+++ Held lisinopril 20 mg tablet 20 mg PO BID Hold Instructions: pending follow-up with PCP/Cardiology Problem Reconciliation Problems Reviewed?: Yes Patient Discharge Instructions ACTIVITY: Continue current activity DIET: continue same diet Patient Instructions: Pneumonia--Adult, DI for Hypoxia, DI for Pleural Effusion, Stop Light Pneumonia, Stop Light COPD, Stop Light Heart Failure Print Language: Sami Providers Primary Care Provider: Provider,Referral Admit Provider: Ruben Walker Attending Provider: Ruben Walker
--- NOTE | 2024-12-04 11:22 | EXP.CARD.PN ---
Subjective Subjective Date: 12/04/24 Time: 09:30 Interval history: Significant symptomatic improvement overnight. O2 down to baseline requirement of 2L/min. ECHO showed severe RV dysfunction and dilation. Started Isordil which she is tolerating well. Up/ambulatory this morning without symptoms. Exam Data for Last 24 hours Vital signs and Labs for Last 24 Hours: Temp Pulse Resp BP Pulse Ox O2 Del Method O2 Flow Rate 97.9 F 79 18 100/67 L 2 L Nasal Cannula 2 12/04/24 08:00 12/04/24 11:01 12/04/24 08:00 12/04/24 08:00 12/04/24 08:00 12/04/24 11:00 12/04/24 11:00 Laboratory Results - last 24 hr 12/04/24 06:04: ESR 53 H, Sodium 135 L, Potassium 3.7, Chloride 90 L, Carbon Dioxide 40 H, Anion Gap 8.7, BUN 20 H D, Creatinine 0.60, Estimated Creat Clear 68, Estimated GFR 104, Est GFR ( Amer) 126, Glucose 89, Calcium 7.8 L, Magnesium 2.3 D, Ferritin 61.0 D, Total Bilirubin 0.2, AST 28, ALT 83 H, Alkaline Phosphatase 91, C-Reactive Protein 24.5 H D, Total Protein 5.6 L, Albumin 2.8 L, Globulin 2.8, Albumin/Globulin Ratio 1.0 L I & O for Last 24 hours: Intake & Output 12/01/24 12/02/24 12/03/24 12/04/24 23:59 23:59 23:59 23:59 Intake Total 1080 / 1080 270 / 270 Output Total 500 / 500 300 / 300 Balance 580 / 580 -30 / -30 Weight 111 lb 111 lb 0.009 oz 90 lb Microbiology Reports for the Last 24 Hours: Microbiology 12/02/24 15:15 Blood Blood Culture - Preliminary NO GROWTH AFTER 24 HOURS 12/02/24 15:10 Blood Blood Culture - Preliminary NO GROWTH AFTER 24 HOURS 12/02/24 09:30 Sputum - Expectorated Sputum Gram Stain - Final Constitutional Constitutional: no acute distress and cooperative *Routine HEENT Exam Eye: Present PERRL *Routine Respiratory Exam Respiratory: Absent accessory muscle use, wheezes or crackles Comments: slightly reduce breath sounds right base wheeze *Routine Cardiovascular Exam Cardiovascular: Present RRR, Normal S1 and Normal S2; Absent murmur, gallop or rubs *Routine Abdominal Exam Abdominal: Present soft; Absent tenderness *Routine Extremities Exam Extremities: Present pulses intact; Absent cyanosis or edema *Routine Skin Exam Skin: Present intact; Absent erythema or wounds *Routine Neurological Exam Neurological: Present alert and oriented X3 Routine Psychiatric Exam Psychiatric: Present cooperative Progress Note: A&P Assessment and plan (1) Acute on chronic respiratory failure with hypoxia and hypercapnia: Status: Acute (2) COPD exacerbation: Status: Acute (3) Multiple pulmonary emboli: Status: Acute (4) Pneumonia: Status: Acute (5) Pleural effusion: Status: Acute (6) Elevated troponin: Status: Acute (7) Acute on chronic heart failure with preserved ejection fraction (HFpEF): Status: Acute Assessment and Plan Assessment and Plan for All Diagnoses:: Severe Acute on Chronic Right Heart Failure w/Cor Pulmonale - SESAY, ProBNP 10k, large right effusion, acute on chronic hypoxia with tob use, recent PE, ongoing multilobe pneumonia - no known heart disease - ECHO here shows severe RV dysfunction, severe RA/RV dilation, moderate TR, and RVSP 60mmHg - increase Lasix to 40mg BID, measure strict I/O, add Isordil 10mg TID 12/04: Pt symptomatically better and back on home O2 requirement. Cont Lasix and Isordil at discharge. Close f/u with labs within 1 week. Large Right Pleural Effusion - likely secondary to PNA and HF - continue diuresis - consider thoracentesis if not improving 12/04: symptomatically improved with diuresis, continue Lasix, antibiotics Repeat CXR 1-2 weeks. Call/return sooner if sx. Acute on Chronic Hypoxic Resp Failure - secondary to PNA, Large Right Effusion, HFpEF - continue diuretics, antibiotics, supplemental O2 - further plans pending ECHO results 12/04: plans as noted above Recent Bilateral PEs - pt denies procedure such as thrombectomy/thrombolysis at but she is neg for PEs here - treatment dose Eliquis changed to Lovenox while inpatient - possible thoracentesis pending 12/04: stressed compliance with OAC at discharge Tob - pt agreeable to Nicotine transdermal at discharge 12/04 CV summary: Pt requesting DC and she is at home O2 requirement. She will need continued close f/u outpatient to assess her PNA, effusion, and PEs. CV DC Meds: Lasix 40mg 1-2 tabs daily Isordil 10mg TID CV F/U: 1 week in our office *Also recommend OP referral to Pulmonology
[2024-12-04] MEDS: PAT OWN MED ***VRAYLAR 1.5 MG 1.5 EACH PO (12:01)
[2024-12-04] MEDS: levoFLOXacin 750 MG TABLET PO (12:01)
--- NOTE | 2024-12-04 13:59 | CARE MANAGER ---
Patient only has Oxygen for night. Patient receives this through [facility]. Sent information to have switched to continuous.
--- NOTE | 2024-12-05 11:04 | SW/DCPLANNER ---
Spoke with patient on the phone. Patient stated that she is doing well. Patient stated that she is aware of her upcoming appointments. Patient stated that she was able to get her medicine picked up from clinic pharmacy. Patient stated she has no concerns or questions at this time. Warren Preciado
--- NOTE | 2024-12-09 15:58 | CARE MANAGER ---
Called and spoke with patient, to notify her of new script sent to pharmacy. She plans to filler picker her [facility]ix [facility].
== END 2024-12-04 14:04 | disposition home or self-care (01) | DRG 189 ==
LOC: ER 14:29 → 2ND 17:00
PROVIDERS: Admitting Provider Student in an Organized Health Care Education/Training Program; Emergency Provider Emergency Medicine; Visit Provider Student in an Organized Health Care Education/Training Program
DX: J96.01 Acute respiratory failure with hypoxia (principal); J18.9 Pneumonia, unspecified organism; I21.4 Non-ST elevation (NSTEMI) myocardial infarction; I50.33 Acute on chronic diastolic (congestive) heart failure; R64 Cachexia; Z68.1 Body mass index [BMI] 19.9 or less, adult; J44.0 Chronic obstructive pulmonary disease with (acute) lower respiratory infection; D50.0 Iron deficiency anemia secondary to blood loss (chronic); F17.210 Nicotine dependence, cigarettes, uncomplicated; I27.81 Cor pulmonale (chronic); I50.812 Chronic right heart failure; F41.9 Anxiety disorder, unspecified; E78.5 Hyperlipidemia, unspecified; F32.A Depression, unspecified; I25.10 Atherosclerotic heart disease of native coronary artery without angina pectoris; G40.909 Epilepsy, unspecified, not intractable, without status epilepticus; Z71.6 Tobacco abuse counseling; Z86.711 Personal history of pulmonary embolism; Z79.01 Long term (current) use of anticoagulants; Z91.198 Patient's noncompliance with other medical treatment and regimen for other reason; Z82.49 Family history of ischemic heart disease and other diseases of the circulatory system; Z82.5 Family history of asthma and other chronic lower respiratory diseases; Z28.39 Other underimmunization status; Z79.899 Other long term (current) drug therapy; Z91.148 Patient's other noncompliance with medication regimen for other reason
CPT/HCPCS: 36415; 71045; 71275; 80053; 80061; 81001; 82607; 82728; 82746; 82803; 83036; 83540; 83550; 83605; 83735; 83880; 84145; 84436; 84443; 84484; 85025; 85378; 85651; 86140; 87040; 87070; 87205; 87636; 93005; 93306; 93970; 94640; 94760; 94761; 99291; J0456; J0696; J1650; J1938; J2919; J3370; J3475; J7050; J7620; Q9967

== ENCOUNTER 2024-12-13 10:23 | Emergency (ER) | payer OTHER, SELFPAY ==
[2024-12-13] VITALS (8 sets, daily range): BP systolic 126–147; BP diastolic 80–92; PULSE 105–117; RESP 17–24; TEMP 36.6–36.7; O2SAT 74–99; BMI 17.8
--- NOTE | 2024-12-13 10:26 | ECG_ITS ---
APPROVED REPORT Exam: Resting ECG HR:114 bpm ECG Measurements Heart Rate 114 AXES WY 146 P 72 QRSd 91 QRS 102 QT 342 T 25 QTc 410 Conclusion Sinus tachycardia Right axis deviation Low voltage QRS Electronically signed by : AILEEN MCGRATH, 12/13/2024 14:07:05
[2024-12-13 10:44] LABS: VBG Base Excess 13.8 mmol/L (-2.4-2.3); VBG HCO3 39.2 mmol/L (23-30); VBG Oxygen Saturation 97.5 % (50-70); VBG PH 7.36 mmol/L (7.31-7.41); VBG PO2 95.6 mmol/L (28-40); VBG Total CO2 41.4 mmol/L (23-27)
[2024-12-13 10:44] LABS: Albumin Level 3.7 g/dl (3.5-5.0); Chloride 93 mmol/L (98-107)
[2024-12-13 10:45] LABS: Potassium 4.7 mmoL/L (3.5-5.1); Sodium 140 mmol/L (136-145)
[2024-12-13 10:47] LABS: Alanine Aminotransferase 40 U/L (12-78); Aspartate Amino Transferase 43 U/L (14-36); Basophils % 0.4 % (0.1-2.0); Blood Urea Nitrogen 19 mg/dl (7-17); Creatinine Clearance Estimated 95 mL/min (50-200); Eosinophils % 0.3 % (0.1-12.0); Estimated Glomerular Filt Rate 128 ml/min (>60); GFR (African American) 155 ML/MIN (>60); Hematocrit 29.5 % (37.0-47.0); Hemoglobin 8.5 g/dL (12.2-16.2); Lymphocytes # 1.3 K/mm3 (0.7-4.5); Lymphocytes % 13.3 % (10-50); Mean Corpuscular HGB Conc 28.8 g/dL (31.8-35.4); Mean Corpuscular Hemoglobin 26.2 pg (27.0-31.2); Mean Platelet Volume 10.3 fl (7.4-10.4); Monocytes # 1.2 K/mm3 (0.1-1.0); Monocytes % 12.6 % (1.7-9.3); Neutrophils % 72.9 % (37.0-80.0); Nucleated Red Blood Cells # 0 10^3/uL; Nucleated Red Blood Cells % 0 %; Platelet Count 311 K/mm3 (142-424); Red Blood Count 3.24 M/mm3 (4.20-5.40); Red Cell Distribution Width 15.9 % (11.5-17.5); Red Cell Distribution Width-SD 52.7 fL; White Blood Count 9.6 K/mm3 (4.8-10.8)
[2024-12-13 10:47] LABS: VBG PCO2 71.4 mmol/L (35-51)
[2024-12-13] MEDS: METHYLPREDNISOLONE SOD SUCC 125MG VIAL 125 MG IV (10:47)
--- NOTE | 2024-12-13 10:47 | XR_ITS ---
FINAL REPORT CLINICAL HISTORY: minimal breath sounds on Right COMPARISON: 12/02/2024 FINDINGS: A single view of the chest was obtained. The heart is normal in size. The mediastinum is unremarkable. There is dense airspace opacity in the right lung base. There is a moderate right pleural effusion. These findings appear stable compared to the prior exam. The left lung is clear. IMPRESSION: Stable airspace opacity at the right lung base and stable moderate right pleural effusion. Reviewed, Interpreted and Dictated by Bijan Tellez MD Transcribed by Ashlee Black Authenticated and [facility]
[2024-12-13 10:48] LABS: Albumin/Globulin Ratio 1.1 (1.1-1.8); Alkaline Phosphatase 88 U/L (38-126); Bilirubin,Total 0.4 mg/dl (0.2-1.3); Calcium 8.5 mg/dl (8.4-10.2); Globulin 3.4 g/dL (1.3-3.2); Glucose 104 mg/dl (74-100); Total Protein,Serum 7.1 g/dl (6.3-8.2)
[2024-12-13] MEDS: IPRATROPIUM/ALBUTEROL 3 ML NEB 9 ML IH (10:48)
[2024-12-13 10:57] LABS: NT Pro Brain Natriuretic Pep. 3830 pg/mL (0-125)
--- NOTE | 2024-12-13 10:57 | ED_ITS ---
Discharge Plan Disposition Patient Disposition: Home, Self-Care Prescriptions Prescriptions: New furosemide 40 mg tablet 40 mg PO DAILY Qty: 5 0RF doxycycline hyclate 100 mg capsule 100 mg PO BID 5 Days Qty: 10 0RF dexamethasone 6 mg tablet 6 mg PO DAILY Qty: 5 0RF No Action levetiracetam 1,000 mg tablet 1,000 mg PO Q12H furosemide [Lasix] 20 mg tablet 20 mg PO DAILY Qty: 30 2RF hydrocodone-acetaminophen 5-325 mg tablet 1 tab PO Q8H PRN (Reason: pain) Qty: 90 0RF baclofen 10 mg tablet 10 mg PO TID Qty: 90 2RF Eliquis 5 mg tablet 5 mg PO BID ergocalciferol (vitamin D2) [Vitamin D2] 1,250 mcg (50,000 unit) capsule 1,250 mcg PO WEEKLY budesonide-formoterol [Symbicort] 80-4.5 mcg/actuation HFA aerosol inhaler 1 puff INHALATION BIDRT albuterol sulfate [Ventolin HFA] 90 mcg/actuation HFA aerosol inhaler 4 puff inhalation Q4HP PRN (Reason: Shortness Of Breath Or Wheezing) ropinirole 1 mg tablet 1 mg PO HS Vraylar 1.5 mg capsule 1.5 mg PO DAILY lisinopril 20 mg tablet 20 mg PO BID diazepam [Valium] 2 mg tablet 2 mg PO DAILYP PRN (Reason: anxiety) Rx Instructions: +++THIS IS A MONTHLY AMOUNT+++ isosorbide dinitrate 10 mg Tablet 10 mg PO TID 30 Days Qty: 90 0RF ipratropium-albuterol 0.5 mg-3 mg(2.5 mg base)/3 mL Solution For Nebulization 3 ml inhalation Q6HP PRN (Reason: shortness of breath or wheezing) 30 Days Qty: 180 0RF Referrals Follow up/Referrals: Provider,Referral, MD [Primary Care Provider] - See instructions Activity Restrictions/Add. Instructions Additional Instructions/Restrictions: Lasix 40 mg once daily for the next 5 days Antibiotic twice daily for the next 5 days Steroid each morning for the next 5 days While taking doxycycline, limit sunlight exposure. It can cause severe sunburns even if you do not typically get sunburn. Be sure to wear hats, long sleeves, sunscreen if you are out in the sun for prolonged periods of time while taking doxycycline. Call your family doctor to establish care for this visit to the emergency department and schedule follow-up within 48 hours to ensure improvement. If you have any worsening of your condition or any other concerning signs or symptoms, return to the emergency department or your primary care doctor for further evaluation. Follow-up with cardiology or your PCP for repeat labs to make sure kidney function remains normal. Clinical Impressions Clinical Impression: Acute exacerbation of chronic obstructive pulmonary disease, Shortness of breath Print Language Print Language: Croatian Discharge ED Provider: Trev Montero HPI General Chief Complaint: Shortness of Breath/Dyspnea Stated Complaint: SOA Time Seen by Provider: 12/13/24 10:28 Mode of Arrival: EMS Source of Information: Patient Description of Symptoms (Recalled from ER Triage Doc. by RN): pt is here for chronic soa flare ups, per ems pt wears 3L at baseline and was 78 % with mile long tubing, ems gave one treatment and turned her up to 4L and she came up to 95%, pt states she is swollen again today History of Present Illness HPI narrative: Please note that above description of symptoms, in this electronic medical record under categorization of recalled from ER triage doctor by RN are reflective of an initial nursing assessment, however, is not reflective of my full history and physical exam that was personally taken and clarified. Consequentially, this preceding description of symptoms, which may include the patient's categorized chief complaint in the EMR, do not reflect my personal clinical impression, and the ultimate description of history of present illness and patient stated complaints should be deferred to this section of the note. Unless stated otherwise or congruent with this section of the note, additional signs, symptoms, or incongruence should be interpreted as inaccurate with my clinical impression. Related Data Home Medications ?Medication ?Instructions ?Recorded ?Confirmed levetiracetam 1,000 mg tablet 1,000 mg PO Q12H 09/26/22 12/10/24 albuterol sulfate 90 mcg/actuation 4 puff inhalation Q4HP PRN 12/02/24 12/10/24 aerosol inhaler (Ventolin HFA) Shortness Of Breath Or Wheezing apixaban 5 mg tablet (Eliquis) 5 mg PO BID 12/02/24 12/10/24 budesonide-formoterol HFA 80 1 puff inhalation BIDRT 12/02/24 12/10/24 mcg-4.5 mcg/actuation aerosol inhaler (Symbicort) cariprazine 1.5 mg capsule 1.5 mg PO DAILY 12/02/24 12/10/24 (Vraylar) ergocalciferol (vitamin D2) 1,250 1,250 mcg PO WEEKLY 12/02/24 12/10/24 mcg (50,000 unit) capsule (Vitamin D2) ropinirole 1 mg tablet 1 mg PO HS 12/02/24 12/10/24 diazepam 2 mg tablet (Valium) 2 mg PO DAILYP PRN anxiety 12/03/24 12/10/24 lisinopril 20 mg tablet 20 mg PO BID 12/03/24 12/10/24 Previous Rx's ?Medication ?Instructions ?Recorded baclofen 10 mg tablet 10 mg PO TID #90 tabs 09/17/24 ipratropium 0.5 mg-albuterol 3 mg 3 ml inhalation Q6HP PRN shortness 12/04/24 (2.5 mg base)/3 mL nebulization of breath or wheezing 30 days #180 soln mL isosorbide dinitrate 10 mg tablet 10 mg PO TID 30 days #90 tabs 12/04/24 furosemide 20 mg tablet (Lasix) 20 mg PO DAILY #30 tabs 12/10/24 hydrocodone 5 mg-acetaminophen 325 1 tab PO Q8H PRN pain #90 tabs 12/10/24 mg tablet dexamethasone 6 mg tablet 6 mg PO DAILY #5 tabs 12/13/24 doxycycline hyclate 100 mg capsule 100 mg PO BID 5 days #10 caps 12/13/24 furosemide 40 mg tablet 40 mg PO DAILY #5 tabs 12/13/24 Allergies Allergy/AdvReac Type Severity Reaction Status Date / Time No Known Allergies Allergy Verified 12/10/24 13:56 [facility] Disclaimer: The information contained in this section may have been updated after the patient was seen, as this information can be updated by other users. Medical History Epileptic seizure Acute renal failure Acute liver failure Alcohol withdrawal Atypical pneumonia COPD (chronic obstructive pulmonary disease) Tobacco abuse counseling Tobacco abuse Encounter for screening for malignant neoplasm of lung in current smoker with 30 pack year history or greater Lung nodule Dyspnea on exertion Smoking greater than 30 pack years COPD (chronic obstructive pulmonary disease) Epileptic seizure Tobacco dependence syndrome Surgical History History of hysterectomy Family History Other Asthma COPD (chronic obstructive pulmonary disease) Hypertension Social History (Updated 12/10/24 @ 14:00 by Angela Breen MA) Smoking Status: Never smoker alcohol intake: never substance use type: denies use current occupational status: other Travel in the last 8 weeks: None housing: other caffeine: Yes Have you lived/traveled outside US in past 30 days?: No Contact w/someone who lives/traveled outside US past 30 days?: No Exposure to someone with infectious disease in past 14 days?: No Do you have a fever (greater than 100.4 F or 38 C)?: No Have you tested positive for COVID-19: No Exposed to someone with COVID-19 in past 14 days?: No Do you have a sore throat?: No Do you have a cough?: No Do you have any weakness?: Yes Do you have any diarrhea?: No Are you experiencing any unusual bleeding?: No Do you have any muscle aches/pain?: No Do you have any abdominal pain?: No Are you experiencing loss of taste or smell?: No Other Medical History Have you received the Flu Vaccine for this season: No Have you received the Pneumonia Vaccine: No ROS Obtained: Yes All systems reviewed & no additional complaints except as documented Physical Exam General General appearance: alert Neck Neck exam: Present trachea midline Chest Chest inspection: Present normal inspection and symmetric chest wall rise Respiratory Respiratory exam: Present respiratory distress, wheezes and prolonged expiratory phase; Absent stridor or accessory muscle use Cardiovascular Cardiovascular exam: Present normal rhythm, tachycardia and other (Pulses equal and symmetric in upper and lower extremities) Extremities Exam Extremities exam: Present edema Neurological Exam Neurological exam: Present alert, oriented X3 and CN II-XII intact Skin Skin exam: Present warm and dry; Absent cyanosis, diaphoresis or pallor HEART Score HEART Score HEART Score assessment performed?: Yes History (anamnesis): Slightly suspicious ECG: Non-specific disturbance Age: 45-65 years Risk factors: 3 or more risk factors Troponin: </= normal limit HEART Score: 4 Critical Care Critical Care Time Critical Care Time: No Medical Decision Making Medical Records Medical records reviewed: Yes I reviewed the patient's medical records. Payam Inquiry Pt receiving controlled substance: No Payam was queried for this patient: No Vital Signs Vital Signs: 12/13/24 10:25 12/13/24 10:29 12/13/24 10:30 Temperature 98.0 F Temperature Source Oral Pulse Rate 117 H 113 H Pulse Rate [Left Radial] 111 H Respiratory Rate 17 20 Blood Pressure 137/80 126/90 Blood Pressure [Right Arm] 126/90 Blood Pressure Mean [Right Arm] 102 02 Sat by Pulse Oximetry 95 93 L 91 L Oxygen Delivery Method Nasal Cannula Oxygen Flow Rate (LPM) 4 12/13/24 11:00 Temperature Temperature Source Pulse Rate 107 H Pulse Rate [Left Radial] Respiratory Rate 23 Blood Pressure 131/89 Blood Pressure [Right Arm] Blood Pressure Mean [Right Arm] 02 Sat by Pulse Oximetry 96 Oxygen Delivery Method Oxygen Flow Rate (LPM) Lab Data Labs: Lab Results 12/13/24 10:25: WBC 9.6, RBC 3.24 L, Hgb 8.5 L, Hct 29.5 L, MCV 91.0, MCH 26.2 L , MCHC 28.8 L, RDW 15.9, Plt Count 311, MPV 10.3, Neut % (Auto) 72.9, Lymph % (Auto) 13.3, Edwards % (Auto) 12.6 H, Eos % (Auto) 0.3, Baso % (Auto) 0.4, Neut # (Auto) 7.0, Lymph # (Auto) 1.3, Edwards # (Auto) 1.2 H, Eos # (Auto) 0.0, Baso # (Auto) 0.0, APTT 25.4, Sodium 140, Potassium 4.7, Chloride 93 L, Carbon Dioxide 40 H, Anion Gap 11.7, BUN 19 H, Creatinine 0.50 L, Estimated Creat Clear 95, Estimated GFR 128, Est GFR ( Amer) 155, Glucose 104 H, Calcium 8.5, Total Bilirubin 0.4, AST 43 H, ALT 40, Alkaline Phosphatase 88, Troponin I 0.04 H, N T-Pro-B Natriuret Pep 3830 H, Total Protein 7.1 D, Albumin 3.7, Globulin 3.4 H, Albumin/Globulin Ratio 1.1 12/13/24 10:32: VBG pH 7.36, VBG pCO2 71.4 H, VBG pO2 95.6 H, VBG HCO3 39.2 H, V BG Total CO2 41.4 H, VBG O2 Saturation 97.5 H, VBG Base Excess 13.8 H, VBG Lactic Acid 1.0 12/13/24 10:25 12/13/24 10:25 Response Orders (Tests/Meds): ED MEDICATIONS Generic Name Dose Route Start Last Admin Trade Name Freq PRN Reason Stop Dose Admin Vancomycin HCl 1,000 mg/ 250 mls @ 125 mls/hr 12/13/24 12:30 12/13/24 12:06 Sodium Chloride IV 12/13/24 14:29 Not Given ONCE ONE Discontinued Medications Generic Name Dose Route Start Last Admin Trade Name Freq PRN Reason Stop Dose Admin Albuterol/Ipratropium 9 ml 12/13/24 10:42 12/13/24 10:48 Ipratropium/Albuterol 3 Ml Neb IH 12/13/24 10:43 9 ml ONCE ONE Administration Doxycycline Hyclate 100 mg 12/13/24 10:42 12/13/24 11:05 Doxycycline Hycl 100 Mg Tablet PO 12/13/24 10:43 100 mg ONCE ONE Administration Piperacillin Sod/Tazobactam 100 mls @ 200 mls/hr 12/13/24 11:26 12/13/24 11:27 Sod 4.5 gm/ Sodium Chloride IV 12/13/24 11:55 200 mls/hr ONCE ONE Administration Iopamidol 80 ml 12/13/24 11:30 Iopamidol-370 (76%);100ml Bottle IV 12/13/24 11:31 ONCE ONE Methylprednisolone Sodium Succinate 125 mg 12/13/24 10:42 12/13/24 10:47 Methylprednisolone Sod Succ 125mg Vial IV 12/13/24 10:43 125 mg ONCE ONE Administration Miscellaneous 1 each 12/13/24 11:15 12/13/24 11:27 Vancomycin Consult Request NOTAPPLIC 01/12/25 11:14 1 each CONSULT PHARMACY SUZY Administration Sodium Chloride 10 ml 12/13/24 11:30 Sodium Chloride 0.9% 10ml Syr (Rad Only) IV 12/13/24 11:31 ONCE ONE ORDERS Category Date Time Status CT angio chest PE protocol Stat Cat Scan 12/13/24 11:07 Taken CXR --portable [XR chest portable] Stat Exams 12/13/24 10:47 Taken Complete Blood Count Auto Diff Stat Lab 12/13/24 10:25 Completed Comprehensive Metabolic Panel Stat Lab 12/13/24 10:25 Completed NT Pro Brain Natriuretic Pep. Stat Lab 12/13/24 10:25 Completed PTT [Activated Partial Thrombo Time] Stat Lab 12/13/24 10:25 Completed Troponin I Q3H Lab 12/13/24 13:45 Ordered Troponin I Q3H Lab 12/13/24 16:45 Ordered Troponin I Stat Lab 12/13/24 10:25 Completed Blood Culture Stat Micro 12/13/24 10:33 Received Venous Blood Gas Stat RT 12/13/24 10:32 Completed MDM Narrative Medical Decision Narrative: 54-year-old female presenting with shortness of breath. Patient was recently diagnosed with bilateral pulmonary emboli on Eliquis, acute hypoxemic respiratory failure, intubated and managed at outside facility. She has a history of COPD on 2 L nasal cannula chronically, epileptic seizures, CAD, CHF chronic pain, hypertension and hyperlipidemia. States that today, 12/13, she started feeling more short of breath. She has been coughing the last couple of days, usually clear and she uses a respiratory percussion device to help clear secretions. There thicker, more frequent and more copious, white to yellow now. No fevers or chills, no chest pain, nausea, vomiting, but her legs are more swollen than they typically are. Denies PND orthopnea. History was obtained via conversation with patient and chart review, EMS. On arrival, patient hemodynamically stable, alert, oriented x4, appropriate, GCS 15, moving all extremities spontaneously, pupils equal and reactive to light. Full physical exam performed and significant for chronically ill-appearing female no acute distress. Speaking in near full sentences, nontachypneic. She is tachycardic, but just received nebulizer treatment on the way to the emergency department. Lungs are wheezy primarily on the left, on the right she has minimal breath sounds overall. Near loss of sounds in inferior swenson bilaterally. Patient has bilateral lower extremity pitting edema 2+. Abdomen soft, nontender, nondistended. No flank tenderness.. Differential includes sepsis, pneumonia, bronchitis, pneumothorax, progression of disease, PEs, ACS, [place], CHF, among others Patient was given DuoNebs, Solu-Medrol, supplemental oxygen for symptomatic management and correction of underlying abnormalities. Patient placed on continuous cardiac monitoring and continuous pulse ox with initial blood pressure 126/90, heart rate 111, saturation 93% on 4 L nasal cannula. Independent interpretation of EKG shows sinus tachycardia 114 bpm with SC 146, QRS 91, QTc 410 with rightward axis and no acute ischemic change. Low voltage QRS is throughout the EKG. Workup independently interpreted and significant for nonactionable CBC with normal white count, but relatively monocytes anemic. Patient's VBG with compensated chronic respiratory acidosis. Patient's pH is normal at 7.36, CO2 elevated at 71.4, bicarb elevated at 39.2 and normal lactate. No acute findings. Patient's chemistry nonactionable with normal LFTs. Patient's initial troponin elevated at 0.04 and BNP elevated at 3800, but this is decreased from over 10,000 just a couple weeks ago. On independent interpretation of imaging, no acute cardiopulmonary space disease, improving effusion on the right. See radiology read for full review of final results. Reevaluation, patient states she is feeling a lot better after nebs and steroids. CT angiogram of the chest was ordered to further evaluate opacities on the right and concern for potential cavitation. On independent to rotation, seems to be fluid around right sided bleb as well as known air trapping disease, no new consolidation or intrathoracic process. I consulted the hospitalist and interactive discussion with him. Agrees the patient is probably safe for home-going, but recommended increased dose 40 mg Lasix each day for a week and following up for repeat labs to improve diuresis. I feel this is appropriate as well. Reevaluation, patient asymptomatic at rest at this point. Feeling much better. On further conversation with patient and family, patient states that she wants to go home and treat for COPD/increased Lasix at home as well and she is agreeable to this plan. Patient has close follow-up with PCP as well as cardiology making this plan more sustainable. 5 days of 40 mg Lasix, Decadron, doxycycline to be sent to the pharmacy.Given patient presentation, workup, history, this most likely represents COPD exacerbation and mild fluid overload, improving. Patient's family also states the patient uses about 50 feet of oxygen tubing at home, was recommended that she decrease this to 6 feet and carry around oxygen and dry cell sealer Because patient at baseline without signs or symptoms of clinical decompensation, deemed appropriate for discharge. Results were relayed to patient Independent interpretation of EKG shows and correction of underlying abnormalities 15 appropriate, oriented x4, who voiced understanding and were agreeable to outpatient management and follow up. I discussed my clinical impression with patient and answered all questions. At this time, the evidence for any other entities in the differential is insufficient to warrant any further testing or ED observation. This was explained as well. Advisory was given that persistent or worsening symptoms require further evaluation. I confirmed the understanding of this discussion. Lobby Concierge disclaimer Much of this encounter note is an electronic chucking and sawing machine operator spoken language to printed text. Electronic chucking and sawing machine operator of the spoken language may permit errors. Although I have reviewed the note, some errors may still exist.
[2024-12-13 10:58] LABS: Activated Partial Thrombo Time 25.4 seconds (22.8-30.6)
[2024-12-13 10:59] LABS: Troponin I 0.04 ng/ml (0.00-0.034)
[2024-12-13 11:01] LABS: Anion Gap 11.7 mEq/L (5-15); Carbon Dioxide 40 mmol/L (22.0-30.0)
[2024-12-13] MEDS: DOXYCYCLINE HYCL 100 MG TABLET PO (11:05)
--- NOTE | 2024-12-13 11:07 | CT_ITS ---
FINAL REPORT TECHNIQUE: The patient was injected with IV contrast. Axial images were obtained through the chest in a PE protocol. 3-D reconstruction images were also performed. Individualized dose reduction techniques using automated exposure control or adjustment of the MA and/or KV according to patient's size were employed. CLINICAL HISTORY: large effusion, eval R lung COMPARISON: 12/02/2024 FINDINGS: Mediastinal vasculature is adequately opacified. No pulmonary artery filling defects are identified to suggest PE. There is no aortic dissection. There is no axillary adenopathy. There is no hilar or mediastinal adenopathy. The heart size is normal. There is no pericardial or left pleural effusion. There is a moderate right pleural effusion. There is fluid layering to the depth of 6.7 cm. There is dense consolidation in the right middle and right lower lobes. A right apical bulla measures 6 cm. There appears to be calcification at the margins of the bulla. There are moderately advanced changes of centrilobular emphysema. Limited images of the upper abdomen demonstrate no acute abnormality. IMPRESSION: No pulmonary embolus or dissection. Right pleural effusion layered to a depth of 6.7 cm. Right middle and right lower lobe consolidation. Moderately advanced changes of centrilobular emphysema's. Reviewed, Interpreted and Dictated by Bijan Tellez MD Transcribed by Ashlee Black Authenticated and [facility]
--- NOTE | 2024-12-13 11:25 | PC.NURSE ---
rad has pt out for scans at this time
[2024-12-13] MEDS: VANCOMYCIN CONSULT REQUEST 1 EACH NOTAPPLIC (11:27)
[2024-12-13] MEDS: PIPERACILLIN/TAZO 4.5 GM in 0.9 % SODIUM CHLORIDE 100 ML IV (11:27)
--- NOTE | 2024-12-13 11:40 | PC.NURSE ---
DR MCGRATH SPEAKING WITH HOSPITALIST
== END 2024-12-13 13:38 | disposition home or self-care (01) ==
PROVIDERS: Emergency Provider Emergency Medicine
DX: J44.1 Chronic obstructive pulmonary disease with (acute) exacerbation (principal); R00.0 Tachycardia, unspecified; R60.0 Localized edema; Z99.81 Dependence on supplemental oxygen
CPT/HCPCS: 71045; 71275; 80053; 82803; 83880; 84484; 85025; 85730; 87040; 93005; 96365; 96375; 99285; J2543; J2919

== ENCOUNTER 2024-12-24 08:26 | Outpatient (CLI) | payer OTHER, SELFPAY ==
[2024-12-24 08:49] VITALS: BP 140/86; PULSE 103; RESP 22; TEMP 36.2; O2SAT 98; BMI 12.7
--- NOTE | 2024-12-24 09:00 | US_ITS ---
FINAL REPORT CLINICAL HISTORY: Effusion - RT SIDE -- MESSI STALEY -- 250 ML DRAINED FINDINGS: ULTRASOUND-GUIDED THORACENTESIS HISTORY: Pleural effusion. ATTENDING PHYSICIAN: Dr. Tellez PHYSICIAN VICE PRESIDENT OF SOFTWARE ENGINEERING: Messi Alberts PA-C TECHNIQUE: Informed consent was obtained from the patient. The indications and complications were discussed with the patient prior to beginning the procedure. This included, but was not limited to pain, bleeding, infection, and pneumothorax requiring chest tube placement. The back was then prepped and draped in sterile fashion. 1% Lidocaine was used for local anesthesia. Utilizing sonographic guidance, a standard thoracentesis needle and sheath were inserted into the pleural space and approximately 250 mL of clear pleural fluid was successfully removed without complication. The patient tolerated the procedure well. IMPRESSION: Technically successful sonographic guided right-sided thoracentesis as above. Films reviewed , interpreted and dictated by Dr. More Robledo. Transcribed by Messi Alberts PA-C. Reviewed, Interpreted and Dictated by More Robledo MD Transcribed by ERBEKA Wallace Authenticated and [facility]
--- NOTE | 2024-12-24 09:15 | XR_ITS ---
FINAL REPORT CLINICAL HISTORY: Post thoracentesis COMPARISON: 12/13/2024 FINDINGS: PA and lateral views of the chest were obtained. The heart is mildly enlarged, but stable when compared to the prior exam. The mediastinal silhouette is unremarkable. Changes of emphysema are once again noted. A prominent bleb is present in the right upper lung field with associated rim calcification, stable. There is a right lower lobe opacity, as well as a right pleural effusion, that may be secondary to pneumonia. No pneumothorax is seen. No acute osseous abnormality is identified. IMPRESSION: No evidence of pneumothorax post thoracentesis. Right lower lobe opacity, and somewhat smaller right pleural effusion, which may be secondary to pneumonia. Reviewed, Interpreted and Dictated by More Robledo MD Transcribed by Sonali Benavidez Authenticated and [facility]
[2024-12-24 09:30] VITALS: BP 127/86; PULSE 109; RESP 20; O2SAT 93
[2024-12-24 09:45] VITALS: BP 123/70; PULSE 124; RESP 24; O2SAT 91
[2024-12-24 10:00] VITALS: BP 118/65; PULSE 116; RESP 20; O2SAT 94
[2024-12-24 10:15] VITALS: BP 108/61; PULSE 116; RESP 19; O2SAT 94
[2024-12-24 10:30] VITALS: BP 112/65; PULSE 110; RESP 22; O2SAT 94
[2024-12-24 12:28] LABS: Appearance,Body Fld. Cloudy; RBC,Body Fluid 1000 cells/uL (< 10 X 10^3); Source, Body Fld. Thoracentesis Fluid; TNC,Body Fluid 469 cells/uL (< 1000); Volume,Body Fld. 250 mL
[2024-12-24 12:58] LABS: Mononuclear WBCs,Body Fluid 83 %; Polynuclear WBC,Body Fluid 17 %
[2024-12-25 13:11] LABS: Albumin, Body Fluid 2.2 g/dL (Not Estab.); LD, Body Fluid 116 IU/L (.); Protein, Body Fluid 3.1 g/dL (.)
== END 2024-12-24 11:01 | disposition home or self-care (01) ==
PROVIDERS: PCP Nurse Practitioner Family; Visit Provider Internal Medicine Pulmonary Disease
DX: R06.02 Shortness of breath (principal); J90 Pleural effusion, not elsewhere classified
CPT/HCPCS: 32555; 71046; 82042; 83615; 84155; 87070; 89051

== ENCOUNTER 2024-12-26 12:29 | Outpatient (CLI) | payer OTHER, SELFPAY ==
[2024-12-26 13:00] LABS: Basophils % 0.3 % (0.1-2.0); Eosinophils % 0.2 % (0.1-12.0); Hematocrit 29.7 % (37.0-47.0); Immature Granulocytes # 0.05 10^3uL; Immature Granulocytes % 0.5 %; Lymphocytes # 1.7 K/mm3 (0.7-4.5); Lymphocytes % 16.1 % (10-50); Mean Corpuscular HGB Conc 30.3 g/dL (31.8-35.4); Mean Corpuscular Hemoglobin 25.9 pg (27.0-31.2); Mean Corpuscular Volume 85.6 fl (81-99); Mean Platelet Volume 10.1 fl (7.4-10.4); Monocytes # 1.1 K/mm3 (0.1-1.0); Monocytes % 10.8 % (1.7-9.3); Neutrophils # 7.5 K/mm3 (1.8-7.8); Neutrophils % 72.1 % (37.0-80.0); Nucleated Red Blood Cells # 0 10^3/uL; Nucleated Red Blood Cells % 0 %; Platelet Count 289 K/mm3 (142-424); Red Blood Count 3.47 M/mm3 (4.20-5.40); Red Cell Distribution Width 16.4 % (11.5-17.5); Red Cell Distribution Width-SD 50.5 fL; White Blood Count 10.4 K/mm3 (4.8-10.8)
[2024-12-26 13:18] LABS: Lactate Dehydrogenase 206 U/L (313-618)
[2024-12-27 08:13] LABS: Alpha-1-Antitrypsin 223 mg/dL (101-187)
== END 2024-12-26 23:59 | disposition home or self-care (01) ==
LOC: LAB 12:30
PROVIDERS: Internal Medicine Pulmonary Disease; PCP Nurse Practitioner Family; Visit Provider Internal Medicine Medical Oncology
DX: D64.9 Anemia, unspecified (principal); J44.9 Chronic obstructive pulmonary disease, unspecified; J90 Pleural effusion, not elsewhere classified
CPT/HCPCS: 36415; 82103; 83615; 85025

== ENCOUNTER 2024-12-31 10:45 | Outpatient (CLI) | payer OTHER, SELFPAY ==
[2024-12-31] MEDS: ISOTOPE MYOVIEW (PER STUDY) 1 DOSE IV (13:54)
[2024-12-31] MEDS: SODIUM CHLORIDE 0.9% 10ML SYR (RAD ONLY) 10 ML IV (13:54)
== END 2024-12-31 23:59 | disposition home or self-care (01) ==
LOC: RAD 10:46
PROVIDERS: PCP Nurse Practitioner Family; Visit Provider Nurse Practitioner Family
DX: R06.02 Shortness of breath (principal); I27.20 Pulmonary hypertension, unspecified; R79.89 Other specified abnormal findings of blood chemistry; R06.09 Other forms of dyspnea
CPT/HCPCS: 78452; A9502

== ENCOUNTER 2024-12-31 13:19 | Observation (INO) | payer OTHER, SELFPAY ==
[2024-12-31] VITALS (13 sets, daily range): BP systolic 118–156; BP diastolic 70–96; PULSE 91–140; RESP 15–24; TEMP 36.6–36.8; O2SAT 60–97; BMI 21.2
--- NOTE | 2024-12-31 13:22 | ECG_ITS ---
APPROVED REPORT Exam: Resting ECG HR:110 bpm ECG Measurements Heart Rate 110 AXES OK 149 P 83 QRSd 72 QRS 98 QT 338 T 71 QTc 403 Conclusion Sinus tachycardia Right axis deviation No obvious acute ischemic change Electronically signed by : AILEEN MCGRATH, 01/02/2025 11:42:12
--- NOTE | 2024-12-31 13:24 | XR_ITS ---
PROCEDURE INFORMATION: Exam: XR Chest Exam date and time: 12/31/2024 1:31 PM Age: 54 years old Clinical indication: Shortness of breath; Additional info: SOA, hypoxemia TECHNIQUE: Imaging protocol: Radiologic exam of the chest. Views: 1 view. COMPARISON: CT ANGIO CHEST PE PROTOCOL 11/19/2024 5:30 PM FINDINGS: Tubes, catheters and devices: None. Lungs: Mild bilateral perihilar and basilar interstitial pulmonary opacities, suggesting infiltrates, pneumonia within the lungs. No consolidation. The pulmonary opacities are most prominent within the lower right lung. Improvement of right-sided lung opacities is demonstrated. Pleural spaces: Small volume of pleural fluid is demonstrated within the right side. The right pleural effusion has decreased in size. Heart/Mediastinum: Coronary arterial calcifications are demonstrated. Vasculature: Mild atherosclerotic calcification demonstrated within the aorta. Mild atherosclerotic calcification demonstrated within the aorta. Bones/joints: No acute bony abnormality identified. IMPRESSION: 1. Small right pleural effusion. 2. Mild interstitial infiltrates, pneumonia. Pleural and parenchymal opacities within the right chest demonstrate improvement.
--- NOTE | 2024-12-31 13:31 | [facility].EDCP ---
Discharge Plan Disposition Patient Disposition: Admitted Clinical Impressions Clinical Impression: Acute hypoxemic respiratory failure, Acute exacerbation of chronic obstructive pulmonary disease, Pneumonia Discharge ED Provider: Trev Montero HPI General Chief Complaint: Shortness of Breath/Dyspnea Stated Complaint: Sent from stress lab O2 is low Time Seen by Provider: 12/31/24 13:20 History of Present Illness HPI narrative: Please note that above description of symptoms, in this electronic medical record under categorization of recalled from ER triage doctor by RN are reflective of an initial nursing assessment, however, is not reflective of my full history and physical exam that was personally taken and clarified. Consequentially, this preceding description of symptoms, which may include the patient's categorized chief complaint in the EMR, do not reflect my personal clinical impression, and the ultimate description of history of present illness and patient stated complaints should be deferred to this section of the note. Unless stated otherwise or congruent with this section of the note, additional signs, symptoms, or incongruence should be interpreted as inaccurate with my clinical impression. Related Data Home Medications ?Medication ?Instructions ?Recorded ?Confirmed levetiracetam 1,000 mg tablet 1,000 mg PO BID 09/26/22 12/31/24 albuterol sulfate 90 mcg/actuation 4 puff inhalation Q4HP PRN 12/02/24 12/31/24 aerosol inhaler (Ventolin HFA) Shortness Of Breath Or Wheezing apixaban 5 mg tablet (Eliquis) 5 mg PO BID 12/02/24 12/31/24 budesonide-formoterol HFA 80 1 puff inhalation BID 12/02/24 12/31/24 mcg-4.5 mcg/actuation aerosol inhaler (Symbicort) cariprazine 1.5 mg capsule 1.5 mg PO DAILY 12/02/24 12/31/24 (Vraylar) ergocalciferol (vitamin D2) 1,250 1,250 mcg PO WEEKLY 12/02/24 12/31/24 mcg (50,000 unit) capsule (Vitamin D2) ropinirole 1 mg tablet 1 mg PO HS 12/02/24 12/31/24 diazepam 2 mg tablet (Valium) 2 mg PO DAILYP PRN anxiety 12/03/24 12/31/24 pramipexole 1 mg tablet 1 mg PO DAILY 05/05/25 05/13/25 hydrocodone 5 mg-acetaminophen 325 1 tab PO Q8HP PRN Moderate Pain 12/31/24 12/31/24 mg tablet (Scale Score 5-6) Previous Rx's ?Medication ?Instructions ?Recorded baclofen 10 mg tablet 10 mg PO TID #90 tabs 09/17/24 isosorbide dinitrate 10 mg tablet 10 mg PO TID 30 days #90 tabs 12/04/24 furosemide 40 mg tablet 40 mg PO DAILY #30 tabs 12/18/24 ferrous sulfate 325 mg (65 mg 325 mg PO DAILY #90 tabs 12/26/24 iron) tablet Allergies Allergy/AdvReac Type Severity Reaction Status Date / Time No Known Allergies Allergy Verified 12/26/24 11:55 [facility] Disclaimer: The information contained in this section may have been updated after the patient was seen, as this information can be updated by other users. Medical History Pleural effusion on right Epileptic seizure Pulmonary hypertension Elevated troponin Acute renal failure Acute liver failure Alcohol withdrawal Atypical pneumonia COPD (chronic obstructive pulmonary disease) Tobacco abuse counseling Tobacco abuse Encounter for screening for malignant neoplasm of lung in current smoker with 30 pack year history or greater Lung nodule Dyspnea on exertion Smoking greater than 30 pack years COPD (chronic obstructive pulmonary disease) Epileptic seizure Tobacco dependence syndrome Surgical History History of hysterectomy Family History Other Asthma COPD (chronic obstructive pulmonary disease) Hypertension Social History Smoking Status: Current every day smoker alcohol intake: never substance use type: denies use current occupational status: other Travel in the last 8 weeks?: None housing: other caffeine: Yes Have you lived/traveled outside [place] in past 30 days?: No Contact w/someone who lives/traveled outside [place] past 30 days?: No Exposure to someone with infectious disease in past 14 days?: No Do you have a fever (greater than 100.4 F or 38 C)?: No Have you tested positive for COVID-19?: No Exposed to someone with COVID-19 in past 14 days?: No Do you have a sore throat?: No Do you have a cough?: No Do you have any weakness?: No Do you have any diarrhea?: No Are you experiencing any unusual bleeding?: No Do you have any muscle aches/pain?: No Do you have any abdominal pain?: No Are you experiencing loss of taste or smell?: No Other Medical History Have you received the Flu Vaccine for this season: No Have you received the Pneumonia Vaccine: No ROS Obtained: Yes All systems reviewed & no additional complaints except as documented Physical Exam General General appearance: alert and in distress (Respiratory distress) Neck Neck exam: Present trachea midline Chest Chest inspection: Present normal inspection and symmetric chest wall rise Respiratory Respiratory exam: Present wheezes, accessory muscle use, prolonged expiratory phase and other (Very minimal breath sounds heard bilaterally on auscultation); Absent respiratory distress or stridor Cardiovascular Cardiovascular exam: Present normal rhythm, tachycardia and other (Pulses equal and symmetric in upper and lower extremities) Extremities Exam Extremities exam: Absent edema Neurological Exam Neurological exam: Present alert, oriented X3 and CN II-XII intact Skin Skin exam: Present warm and dry; Absent cyanosis, diaphoresis or pallor HEART Score HEART Score HEART Score assessment performed?: Yes History (anamnesis): Slightly suspicious ECG: Normal Age: 45-65 years Risk factors: 3 or more risk factors Troponin: </= normal limit HEART Score: 3 Critical Care Critical Care Time Critical Care Time: Yes (cardiac, resp) Attestation: On 12/31/24, the high probability of a clinically significant, sudden or life threatening deterioration of the following system(s) required my full and direct attention, intervention and personal management. The time I documented below is in addition to time spent performing reported procedures but includes the following listed in this critical care notation. Total Time Total Critical Care Time: 45 Medical Decision Making Medical Records Medical records reviewed: Yes I reviewed the patient's medical records. Payam Inquiry Pt receiving controlled substance: No Payam was queried for this patient: No Vital Signs Vital Signs: 12/31/24 13:30 12/31/24 13:35 12/31/24 13:41 Temperature 98.2 F Temperature Source Oral Pulse Rate 140 H 115 H Pulse Rate [Left Radial] 107 H Respiratory Rate 24 Blood Pressure 156/94 H Blood Pressure [Right Arm] 153/96 H Blood Pressure Mean [Right Arm] 115 Blood Pressure Source Automatic Cuff 02 Sat by Pulse Oximetry 60 L 94 L Oxygen Delivery Method Room Air BiPAP BiPAP Fraction of Inspired Oxygen 12/31/24 13:41 12/31/24 13:44 12/31/24 14:42 Temperature Temperature Source Pulse Rate 112 H 102 H Pulse Rate [Left Radial] Respiratory Rate Blood Pressure 118/70 Blood Pressure [Right Arm] Blood Pressure Mean [Right Arm] Blood Pressure Source 02 Sat by Pulse Oximetry 96 Oxygen Delivery Method BiPAP Fraction of Inspired Oxygen 40 Lab Data Labs: Lab Results 12/31/24 13:25: WBC 16.2 H, RBC 3.58 L, Hgb 9.3 L, Hct 31.1 L, MCV 86.9, MCH 26.0 L, MCHC 29.9 L, RDW 16.5, Plt Count 301, MPV 9.9, Neut % (Auto) 76.9, Lymph % (Auto) 14.1, [place] % (Auto) 8.0, Eos % (Auto) 0.1, Baso % (Auto) 0.3, Neut # (Auto) 12.5 H, Lymph # (Auto) 2.3, [place] # (Auto) 1.3 H, Eos # (Auto) 0.0, Baso # (Auto) 0.1, PT 11.6, INR 1.04, APTT 29.1, D-Dimer 0.80 H, VBG pH 7.38, VBG pCO2 69.8 H, VBG pO2 56.9 H, VBG HCO3 40.3 H, VBG Total CO2 42.4 H, VBG O2 Saturation 88.2 H, VBG Base Excess 15.1 H, VBG Lactic Acid 2.2 H, Sodium 133 L, Potassium 4.4, Chloride 88 L, Carbon Dioxide 40 H, Anion Gap 9.4, BUN 11, Creatinine 0.50 L, Estimated Creat Clear 96, Estimated GFR 128, Est GFR ( Amer) 155, Glucose 104 H, Lactate 1.7, Calcium 9.3, Total Bilirubin 0.5, AST 32, ALT 25, Alkaline Phosphatase 122, Troponin I 0.03, Total Protein 7.3, Albumin 4.4, Globulin 2.9, Albumin/Globulin Ratio 1.5 12/31/24 13:25 12/31/24 13:25 Response Orders (Tests/Meds): ED MEDICATIONS Generic Name Dose Route Start Last Admin Trade Name Freq PRN Reason Stop Dose Admin Lactated Ringer's 1,000 mls @ 999 mls/hr 12/31/24 14:21 12/31/24 14:26 Lactated Ringer's 1000 Ml Bag IV 12/31/24 15:21 999 mls/hr .Q1H1M ONE Administration Discontinued Medications Generic Name Dose Route Start Last Admin Trade Name Freq PRN Reason Stop Dose Admin Albuterol/Ipratropium 9 ml 12/31/24 13:24 12/31/24 13:39 Ipratropium/Albuterol 3 Ml Neb IH 12/31/24 13:25 9 ml ONCE ONE Administration Diltiazem HCl 15 mg 12/31/24 14:23 12/31/24 14:26 Diltiazem 25mg/5ml Vial IV 12/31/24 14:24 15 mg ONCE ONE Administration Magnesium Sulfate 2 gm in 50 mls @ 50 mls/hr 12/31/24 13:32 12/31/24 13:42 Magnesium Sulfate 2gm/50ml Premix IV 12/31/24 14:31 50 mls/hr ONCE ONE Administration Azithromycin 500 mg/ Sodium 250 mls @ 250 mls/hr 12/31/24 13:41 12/31/24 14:01 Chloride IV 12/31/24 13:42 250 mls/hr ONCE ONE Administration Ceftriaxone Sodium 2 gm/ 100 mls @ 200 mls/hr 12/31/24 13:41 12/31/24 13:57 Sodium Chloride IV 12/31/24 14:10 200 mls/hr ONCE ONE Administration Methylprednisolone Sodium Succinate 125 mg 12/31/24 13:24 12/31/24 13:43 Methylprednisolone Sod Succ 125mg Vial IV 12/31/24 13:25 125 mg ONCE ONE Administration ORDERS Category Date Time Status Pulmonology Consult [Consult to Pulmonology] [CONS] Cons 12/31/24 14:06 Active Routine XR chest portable Stat Exams 12/31/24 13:24 Completed Complete Blood Count Auto Diff AMLAB Lab 01/01/25 06:00 Ordered Complete Blood Count Auto Diff Stat Lab 12/31/24 13:25 Completed Comprehensive Metabolic Panel [facility] Lab 01/01/25 06:00 Ordered Comprehensive Metabolic Panel Stat Lab 12/31/24 13:25 Completed D-Dimer Stat Lab 12/31/24 13:25 Completed Full Resp Panel w/COVID ([facility]) Routine Lab 12/31/24 14:04 Ordered Lactic Acid Stat Lab 12/31/24 13:25 Completed Magnesium AMLAB Lab 01/01/25 06:00 Ordered PT INR [Prothrombin Time INR] Stat Lab 12/31/24 13:25 Completed PTT [Activated Partial Thrombo Time] Stat Lab 12/31/24 13:25 Completed Troponin I Q3H Lab 12/31/24 16:30 Ordered Troponin I Q3H Lab 12/31/24 19:30 Ordered Troponin I Stat Lab 12/31/24 13:25 Completed Blood Culture Stat Micro 12/31/24 13:50 Received Venous Blood Gas Stat RT 12/31/24 13:25 Completed MDM Narrative Medical Decision Narrative: 54-year-old female coming in for shortness of breath. States that she started feeling short of breath last night, 12/30. She still smoking 3 to 4 cigarettes daily. No cough, fevers, chills. States that she has no chest pain, lower extremity swelling, abdominal pain, etc. Exertionally short of breath with minimal exertion, so came in for further evaluation. History was obtained via conversation with patient. On arrival, patient hemodynamically stable, alert, oriented x4, appropriate, GCS 15, moving all extremities spontaneously, pupils equal and reactive to light. Full physical exam performed and significant for uncomfortable appearing female in respiratory distress. Very minimal bilateral breath sounds. She is tachypneic, tachycardic, minimal wheezing, but minimal breath sounds. Prolonged expiratory phase and retracting. Differential includes COPD exacerbation, bronchitis, pneumonia, pneumothorax, PE, ACS, NV, less likely to be dissection given lack of pain, among others. Patient with saturations in the 50s on arrival. Nonrebreather placed on patient and flushed. Came up to mid 80s Immediately placed on BiPAP. Patient was given DuoNebs, Solu-Medrol, IV magnesium for symptomatic management and correction of underlying abnormalities. Patient placed on continuous cardiac monitoring and continuous pulse ox with initial blood pressure 153/96, heart rate 124, saturation 55% on room air. Independent interpretation of EKG shows sinus tachycardia 110 bpm with no acute ischemic changes. GA 149, QRS 72, QTc 4 3. Workup independently interpreted and significant for coags nonactionable. VBG with chronic respiratory acidosis with metabolic compensation normal pH of 7.38/CO2 elevated at 70, bicarb elevated at 40 with lactate mildly elevated at 2.2. Chemistry 133 sodium. Leukocytosis 16.2 with neutrophilia. Troponin negative. On independent interpretation of imaging, what appears to be developing versus resolving pneumonia on the right side with a demonstration and small pleural effusions. See radiology read for full review of final results. Heart score 3. On reevaluation, patient's vital signs of all improved, tachycardia improved about 100, respiratory rate 20-22, saturating 100% on room air. I consulted the hospitalist and case was discussed at length, patient to be admitted for definitive management in the setting of severe COPD exacerbation. Prior to full admission, patient became tachycardic in the 140s with sustained rate 145-150. Repeat EKG independently interpreted 141 bpm sinus rhythm with GA 148, QRS 76, QTc 418. Rightward axis and no acute ischemic change. Patient was given fluids and IV dose of diltiazem 15 mg. Near complete resolution of symptoms, shortly after tachycardia improved with heart rate in the 90s, respiratory rate improved 15-20 with normotensive pressures. Playground Supervisor disclaimer Much of this encounter note is an electronic ore crushing dust collector spoken language to printed text. Electronic ore crushing dust collector of the spoken language may permit errors. Although I have reviewed the note, some errors may still exist.
[2024-12-31 13:36] LABS: VBG Base Excess 15.1 mmol/L (-2.4-2.3); VBG HCO3 40.3 mmol/L (23-30); VBG Oxygen Saturation 88.2 % (50-70); VBG PH 7.38 mmol/L (7.31-7.41); VBG PO2 56.9 mmol/L (28-40); VBG Total CO2 42.4 mmol/L (23-27)
[2024-12-31 13:37] LABS: Basophils # 0.1 K/mm3 (0-0.2); Basophils % 0.3 % (0.1-2.0); Eosinophils % 0.1 % (0.1-12.0); Hematocrit 31.1 % (37.0-47.0); Hemoglobin 9.3 g/dL (12.2-16.2); Immature Granulocytes # 0.09 10^3uL; Immature Granulocytes % 0.6 %; Lymphocytes # 2.3 K/mm3 (0.7-4.5); Lymphocytes % 14.1 % (10-50); Mean Corpuscular HGB Conc 29.9 g/dL (31.8-35.4); Mean Corpuscular Volume 86.9 fl (81-99); Mean Platelet Volume 9.9 fl (7.4-10.4); Monocytes # 1.3 K/mm3 (0.1-1.0); Neutrophils # 12.5 K/mm3 (1.8-7.8); Neutrophils % 76.9 % (37.0-80.0); Nucleated Red Blood Cells # 0 10^3/uL; Nucleated Red Blood Cells % 0 %; Platelet Count 301 K/mm3 (142-424); Red Blood Count 3.58 M/mm3 (4.20-5.40); Red Cell Distribution Width 16.5 % (11.5-17.5); Red Cell Distribution Width-SD 52.6 fL; White Blood Count 16.2 K/mm3 (4.8-10.8)
[2024-12-31] MEDS: IPRATROPIUM/ALBUTEROL 3 ML NEB 9 ML IH (13:39)
[2024-12-31 13:40] LABS: Lactate Venous 2.2 mmol/L (0.4-2.0); VBG PCO2 69.8 mmol/L (35-51)
[2024-12-31 13:41] LABS: Albumin Level 4.4 g/dl (3.5-5.0); Chloride 88 mmol/L (98-107); Potassium 4.4 mmoL/L (3.5-5.1); Sodium 133 mmol/L (136-145)
[2024-12-31] MEDS: MAGNESIUM SULFATE IN WATER 2 GM/50 ML PIGGYBACK IV (13:42)
[2024-12-31 13:43] LABS: Lactic Acid 1.7 mmol/L (0.7-2.1)
[2024-12-31] MEDS: METHYLPREDNISOLONE SOD SUCC 125MG VIAL 125 MG IV (13:43)
[2024-12-31 13:44] LABS: Alanine Aminotransferase 25 U/L (12-78); Albumin/Globulin Ratio 1.5 (1.1-1.8); Alkaline Phosphatase 122 U/L (38-126); Aspartate Amino Transferase 32 U/L (14-36); Bilirubin,Total 0.5 mg/dl (0.2-1.3); Blood Urea Nitrogen 11 mg/dl (7-17); Calcium 9.3 mg/dl (8.4-10.2); Creatinine Clearance Estimated 96 mL/min (50-200); Estimated Glomerular Filt Rate 128 ml/min (>60); GFR (African American) 155 ML/MIN (>60); Globulin 2.9 g/dL (1.3-3.2); Glucose 104 mg/dl (74-100); Total Protein,Serum 7.3 g/dl (6.3-8.2)
[2024-12-31 13:49] LABS: Activated Partial Thrombo Time 29.1 seconds (22.8-30.6)
[2024-12-31 13:51] LABS: Anion Gap 9.4 mEq/L (5-15); Carbon Dioxide 40 mmol/L (22.0-30.0)
[2024-12-31 13:53] LABS: INR 1.04 (0.9-1.1); Prothrombin Time 11.6 seconds (10.1-12.5)
[2024-12-31 13:56] LABS: Troponin I 0.03 ng/ml (0.00-0.034)
[2024-12-31] MEDS: CEFTRIAXONE SODIUM 2 GM in 0.9 % SODIUM CHLORIDE 100 ML IV (13:57)
[2024-12-31] MEDS: AZITHROMYCIN 500 MG in 0.9 % SODIUM CHLORIDE 250 ML 250 MG IV (14:01)
--- NOTE | 2024-12-31 14:01 | PC.NURSE ---
ER on phone with hospitalist
--- NOTE | 2024-12-31 14:09 | EXP.HP ---
History of Present Illness *Admission Date: 12/31/24 *Reason for visit:: Respiratory distress *History of present illness: 54-year-old female with severe COPD, HFpEF, PEs, cor pulmonale, tobacco use disorder, chronic oxygen requirement. Came in for shortness of breath after participating in stress test today. Started feeling short of breath yesterday. Symptoms have worsened, worse with exertion. Had significant shortness of breath with completing stress test today and became hypoxic. Was sent to the ER for evaluation. States she had some increase in sputum production. Denies nausea, vomiting, diarrhea. No chest pain. On arrival to the ER, was placed on BiPAP given DuoNebs, Solu-Medrol, IV magnesium. Having improved response. Initial blood gas with chronic hypercapnia, compensated with normal pH on VBG. Elevated white count. Medicine consulted for admission due to acute on chronic respiratory failure. Showing improvement by the time she arrived to the floor. Off BiPAP but necessitating 6 L for sats in the high 90s. Alert and oriented x 4. PFSH [facility] Disclaimer: The information contained in this section may have been updated after the patient was seen, as this information can be updated by other users. Medical History Pleural effusion on right Epileptic seizure Pulmonary hypertension Elevated troponin Acute renal failure Acute liver failure Alcohol withdrawal Atypical pneumonia COPD (chronic obstructive pulmonary disease) Tobacco abuse counseling Tobacco abuse Encounter for screening for malignant neoplasm of lung in current smoker with 30 pack year history or greater Lung nodule Dyspnea on exertion Smoking greater than 30 pack years COPD (chronic obstructive pulmonary disease) Epileptic seizure Tobacco dependence syndrome Surgical History History of hysterectomy Family History Other Asthma COPD (chronic obstructive pulmonary disease) Hypertension Social History Smoking Status: Current every day smoker alcohol intake: never substance use type: denies use current occupational status: other Travel in the last 8 weeks?: None housing: other caffeine: Yes Have you lived/traveled outside [place] in past 30 days?: No Contact w/someone who lives/traveled outside [place] past 30 days?: No Exposure to someone with infectious disease in past 14 days?: No Do you have a fever (greater than 100.4 F or 38 C)?: No Have you tested positive for COVID-19?: No Exposed to someone with COVID-19 in past 14 days?: No Do you have a sore throat?: No Do you have a cough?: No Do you have any weakness?: No Do you have any diarrhea?: No Are you experiencing any unusual bleeding?: No Do you have any muscle aches/pain?: No Do you have any abdominal pain?: No Are you experiencing loss of taste or smell?: No Other Medical History Have you received the Flu Vaccine for this season: No Have you received the Pneumonia Vaccine: No Review of Systems Review of Systems Review of systems (narrative): 14 point review of systems performed, pertinent positives and negatives as per [facility] Meds Home Medications and Allergies Home Medications ?Medication ?Instructions ?Recorded ?Confirmed ?Type levetiracetam 1,000 mg tablet 1,000 mg PO BID 09/26/22 12/31/24 History baclofen 10 mg tablet 10 mg PO TID #90 tabs 09/17/24 12/31/24 Rx albuterol sulfate 90 mcg/actuation 4 puff inhalation Q4HP PRN 12/02/24 12/31/24 History aerosol inhaler (Ventolin HFA) Shortness Of Breath Or Wheezing apixaban 5 mg tablet (Eliquis) 5 mg PO BID 12/02/24 12/31/24 History budesonide-formoterol HFA 80 1 puff inhalation BID 12/02/24 12/31/24 History mcg-4.5 mcg/actuation aerosol inhaler (Symbicort) cariprazine 1.5 mg capsule 1.5 mg PO DAILY 12/02/24 12/31/24 History (Vraylar) ergocalciferol (vitamin D2) 1,250 1,250 mcg PO WEEKLY 12/02/24 12/31/24 History mcg (50,000 unit) capsule (Vitamin D2) ropinirole 1 mg tablet 1 mg PO HS 12/02/24 12/31/24 History diazepam 2 mg tablet (Valium) 2 mg PO DAILYP PRN anxiety 12/03/24 12/31/24 History isosorbide dinitrate 10 mg tablet 10 mg PO TID 30 days #90 tabs 12/04/24 12/31/24 Rx furosemide 40 mg tablet 40 mg PO DAILY #30 tabs 12/18/24 12/31/24 Rx pramipexole 1 mg tablet 1 mg PO DAILY 12/23/24 12/31/24 History ferrous sulfate 325 mg (65 mg 325 mg PO DAILY #90 tabs 12/26/24 12/31/24 Rx iron) tablet hydrocodone 5 mg-acetaminophen 325 1 tab PO Q8HP PRN Moderate Pain 12/31/24 12/31/24 History mg tablet (Scale Score 5-6) New Prescriptions to Start Prescriptions: Allergies Allergy/AdvReac Type Severity Reaction Status Date / Time No Known Allergies Allergy Verified 12/31/24 15:32 Exam Data for Last 24 hours Vital signs and Labs for Last 24 Hours: Temp Pulse Resp BP Pulse Ox O2 Del Method FiO2 98.2 F 112 H 24 156/94 H 94 L BiPAP 40 12/31/24 13:30 12/31/24 13:41 12/31/24 13:30 12/31/24 13:35 12/31/24 13:35 12/31/24 13:35 12/31/24 13:44 Laboratory Results - last 24 hr 12/31/24 13:25: WBC 16.2 H, RBC 3.58 L, Hgb 9.3 L, Hct 31.1 L, MCV 86.9, MCH 26.0 L, MCHC 29.9 L, RDW 16.5, Plt Count 301, MPV 9.9, Neut % (Auto) 76.9, Lymph % (Auto) 14.1, [place] % (Auto) 8.0, Eos % (Auto) 0.1, Baso % (Auto) 0.3, Neut # (Auto) 12.5 H, Lymph # (Auto) 2.3, [place] # (Auto) 1.3 H, Eos # (Auto) 0.0, Baso # (Auto) 0.1, PT 11.6, INR 1.04, APTT 29.1, D-Dimer 0.80 H, VBG pH 7.38, VBG pCO2 69.8 H, VBG pO2 56.9 H, VBG HCO3 40.3 H, VBG Total CO2 42.4 H, VBG O2 Saturation 88.2 H, VBG Base Excess 15.1 H, VBG Lactic Acid 2.2 H, Sodium 133 L, Potassium 4.4, Chloride 88 L, Carbon Dioxide 40 H, Anion Gap 9.4, BUN 11, Creatinine 0.50 L, Estimated Creat Clear 96, Estimated GFR 128, Est GFR ( Amer) 155, Glucose 104 H, Lactate 1.7, Calcium 9.3, Total Bilirubin 0.5, AST 32, ALT 25, Alkaline Phosphatase 122, Troponin I 0.03, Total Protein 7.3, Albumin 4.4, Globulin 2.9, Albumin/Globulin Ratio 1.5 I & O for Last 24 hours: Intake & Output 12/28/24 12/29/24 12/30/24 12/31/24 23:59 23:59 23:59 23:59 Weight 47.627 kg Constitutional Constitutional: moderate distress, cachectic, chronically ill appearing, disheveled and cooperative *Routine HEENT Exam Head: Present normocephalic Eye: Present EOMI and PERRL ENT: Present mucous membranes moist *Routine Neck Exam Neck: Present supple; Absent lymphadenopathy *Routine Respiratory Exam Respiratory: Present accessory muscle use, prolonged expiratory phase, rhonchi (Worse in the right lower lung), wheezes and diminished air movement; Absent crackles *Routine Cardiovascular Exam Cardiovascular: Present tachycardia *Routine Abdominal Exam Abdominal: Present soft and normoactive bowel sounds; Absent tenderness *Routine Rectal Exam Rectal:: deferred *Routine Genitalia Exam Genitalia:: deferred *Routine Extremities Exam Extremities: Present edema (Trace bilateral lower lower extremity); Absent cyanosis or clubbing *Routine Skin Exam Skin: Present warm; Absent rash *Routine Neurological Exam Neurological: Present alert, oriented X3 and moving all extremities; Absent altered mental status Assessment and Plan *Assessment and plan (1) Acute on chronic respiratory failure with hypoxia and hypercapnia: Status: Acute Category: Medical Code(s): J96.21 - Acute and chronic respiratory failure with hypoxia; J96.22 - Acute and chronic respiratory failure with hypercapnia (2) Pleural effusion: Status: Acute Category: Medical Code(s): J90 - Pleural effusion, not elsewhere classified (3) Multiple pulmonary emboli: Status: Acute Category: Medical Code(s): I26.99 - Other pulmonary embolism without acute cor pulmonale (4) Severe protein-calorie malnutrition: Status: Acute Category: Medical Code(s): E43 - Unspecified severe protein-calorie malnutrition (5) Anxiety: Status: Acute Category: Medical Code(s): F41.9 - Anxiety disorder, unspecified (6) Tobacco abuse: Status: Chronic Category: Medical Code(s): Z72.0 - Tobacco use (7) Seizure: Status: Chronic Category: Medical Code(s): R56.9 - Unspecified convulsions (8) (HFpEF) heart failure with preserved ejection fraction: Status: Chronic Category: Medical Code(s): I50.30 - Unspecified diastolic (congestive) heart failure Plan Rocio Gonzalez is a 54 year old female with medical history significant for COPD on room air, current tobacco smoker, bilateral PEs, anxiety/depression, seizure disorder, medication nonadherence who presents with progressive shortness of breath over the past few days, acutely worse after participating in stress test today. He was brought to the ER because of a respiratory distress. Found to be hypoxic. Placed on BiPAP with improvement in oxygenation. Medicine consulted for admission. Discussed case with ER physician, request admission for respiratory failure along with further workup of COPD exacerbation. I agreed to admit for further care. Will consult pulmonology to assist with the complexity of her underlying lung disease. Patient has gold class IV COPD. Necessitating inpatient care. Problems addressed as follows: #Acute on chronic hypoxic respiratory failure #Right pleural effusion improving #History of bilateral pulmonary emboli #Cor pulmonale, right heart failure # Gold stage IV COPD ? Presents with progressive shortness of breath, hypoxic on arrival. Initial pulse ox with sats in the 60s. - White count 16, hemoglobin 9, repeat CBC, CMP, magnesium ordered for the morning - Initiated on broad-spectrum antibiotics with ceftriaxone 2 g once in the ER and azithromycin 500 mg once. Will consider continuing every 24 hours pending response. - Received methylprednisolone 125 mg once in the ED. -Continue DuoNebs every 4 hours scheduled. - Consider recurrent steroids in the morning. - Pulmonology consulted, appreciate their recommendations. - Sputum and blood cultures pending - Initial blood gas with pH of 7.38, PCO2 of 69. Appears to be compensated chronic hypercapnic respiratory failure. - Bicarb 40, chronic compensation. - Serial troponins 0.02. - Comprehensive respiratory panel negative -Continue Eliquis 5 mg twice daily for PEs. -Chest x-ray obtained in the ER, shows improvement in pleural effusion previously seen on imaging. HFpEF CAD -Continue Lasix 40 mg daily, isosorbide 10 mg 3 times a day #Chronic normocytic anemia ? Hemoglobin 9.1 today. Stable. Suspect secondary to chronic disease. Iron studies and folate and B12 from previous admission stable #Seizure disorder: Continue home Keppra 1000 mg twice daily. #Anxiety/depression: Continue Valium 2 mg daily as needed. Continue Vraylar 1.5 mg daily. #Current tobacco smoker: Has nicotine patch daily. Patient is motivated to quit. Counseled on need to quit. Concern of continued smoking significantly increases risk for recurrent exacerbations per Full code DVT prophylaxis: Eliquis 5mg BID Regular diet
--- NOTE | 2024-12-31 14:19 | ECG_ITS ---
APPROVED REPORT Exam: Resting ECG HR:141 bpm ECG Measurements Heart Rate 141 AXES MI 148 P 85 QRSd 76 QRS 99 QT 336 T 79 QTc 418 Conclusion Sinus tachycardia Right axis deviation Electronically signed by : AILEEN MCGRATH, 01/02/2025 11:44:53
--- NOTE | 2024-12-31 14:20 | PC.NURSE ---
call made to housekeeping assistant for bed placement
--- NOTE | 2024-12-31 14:22 | PC.NURSE ---
rn noted heart rate increased to 140, repeat ekg done and given to er
[2024-12-31] MEDS: dilTIAZem 25MG/5ML VIAL 15 MG IV (14:26)
[2024-12-31] MEDS: LACTATED RINGERS 1000ML 1,000 ML 999 ML IV (14:26)
--- NOTE | 2024-12-31 14:41 | PC.NURSE ---
called report to gideon strauss
--- NOTE | 2024-12-31 14:41 | HMH.PHAINT1 ---
Pharmacy Intervention Comments: MEDICATION RECONCILIATION COMPLETED ON PATIENT USING EXTERNAL FILL HISTORY FROM PHARMACY AND DISCHARGE SUMMARY FROM PREVIOUS ADMISSION. -ABDIRAHMAN WADDELL, SPIKED
[2024-12-31 15:56] LABS: Adenovirus,PCR Not Detected (NotDetected); Bordetella Pertussis Not Detected (NotDetected); Chlamydophila Pneumoniae, PCR Not Detected (NotDetected); Coronavirus 19, PCR Not Detected (NotDetected); Coronavirus 229E Not Detected (NotDetected); Coronavirus NL63 Not Detected (NotDetected); Coronavirus OC43 Not Detected (NotDetected); Coronovirus HKU1,PCR Not Detected (NotDetected); Human Metapneumovirus Not Detected (NotDetected); Influenza A, PCR Not Detected (NotDetected); Influenza AH1, 2009 Not Detected (NotDetected); Influenza AH1, PCR Not Detected (NotDetected); Influenza AH3,PCR Not Detected (NotDetected); Influenza B, PCR Not Detected (NotDetected); Mycoplasma Pneumoniae, PCR Not Detected (NotDetected); Parainfluenza 1, PCR Not Detected (NotDetected); Parainfluenza 2, PCR Not Detected (NotDetected); Parainfluenza 3, PCR Not Detected (NotDetected); Parainfluenza 4, PCR Not Detected (NotDetected); Respiratory Syncytial Virus Not Detected (NotDetected); Rhinovirus/Enterovirus Not Detected (NotDetected)
[2024-12-31 16:51] LABS: Troponin I 0.03 ng/ml (0.00-0.034)
[2024-12-31 17:40] LABS: Reflex Lactic Add Lactic Reflex
[2024-12-31 19:42] LABS: Reflex Lactic (2 hrs) Add Lactic Reflex
[2024-12-31 20:17] LABS: Lactic Acid Follow up (RFLX 2) 1.6 mmol/L (0.7-2.1)
[2024-12-31 20:29] LABS: Troponin I 0.02 ng/ml (0.00-0.034)
[2024-12-31] MEDS: APIXABAN 5MG TABLET 5 MG PO (20:37)
[2024-12-31] MEDS: BACLOFEN 10MG TABLET 10 MG PO (20:37)
[2024-12-31] MEDS: PATIENT'S OWN HOME MEDICATION (Levetiracetam 1,000 mg tablet) 1000 EACH PO (20:37)
[2024-12-31] MEDS: ROPINIROLE 1MG TABLET 1 MG PO (20:37)
[2024-12-31] MEDS: IPRATROPIUM/ALBUTEROL 3 ML NEB IH (21:47)
[2025-01-01] VITALS (13 sets, daily range): BP systolic 111–142; BP diastolic 70–85; PULSE 84–107; RESP 16–24; TEMP 36.6–36.7; O2SAT 93–96; BMI 16.0
[2025-01-01] MEDS: IPRATROPIUM/ALBUTEROL 3 ML NEB IH ×3 (01:50→10:48)
[2025-01-01 06:35] LABS: Nucleated Red Blood Cells # 0 10^3/uL; Nucleated Red Blood Cells % 0 %; Red Blood Count 3.18 M/mm3 (4.20-5.40)
[2025-01-01 06:51] LABS: Alanine Aminotransferase 19 U/L (12-78); Albumin Level 3.5 g/dl (3.5-5.0); Albumin/Globulin Ratio 1.3 (1.1-1.8); Alkaline Phosphatase 92 U/L (38-126); Aspartate Amino Transferase 24 U/L (14-36); Bilirubin,Total 0.3 mg/dl (0.2-1.3); Blood Urea Nitrogen 17 mg/dl (7-17); Calcium 8.5 mg/dl (8.4-10.2); Chloride 92 mmol/L (98-107); Creatinine Clearance Estimated 73 mL/min (50-200); Estimated Glomerular Filt Rate 128 ml/min (>60); GFR (African American) 155 ML/MIN (>60); Globulin 2.7 g/dL (1.3-3.2); Glucose 92 mg/dl (74-100); Magnesium 2.2 mg/dl (1.6-2.3); Potassium 4.2 mmoL/L (3.5-5.1); Sodium 133 mmol/L (136-145); Total Protein,Serum 6.2 g/dl (6.3-8.2)
[2025-01-01 07:08] LABS: Anion Gap 4.2 mEq/L (5-15); Carbon Dioxide 41 mmol/L (22.0-30.0)
[2025-01-01 07:15] LABS: Hematocrit 27.1 % (37.0-47.0); Immature Granulocytes # 0.04 10^3uL; Immature Granulocytes % 0.5 %; Lymphocytes # 1.1 K/mm3 (0.7-4.5); Lymphocytes % 14.1 % (10-50); Mean Corpuscular HGB Conc 30.6 g/dL (31.8-35.4); Mean Corpuscular Hemoglobin 26.1 pg (27.0-31.2); Mean Corpuscular Volume 85.2 fl (81-99); Mean Platelet Volume 10.8 fl (7.4-10.4); Monocytes # 0.4 K/mm3 (0.1-1.0); Monocytes % 5.6 % (1.7-9.3); Neutrophils # 6.2 K/mm3 (1.8-7.8); Neutrophils % 79.8 % (37.0-80.0); Platelet Count 263 K/mm3 (142-424); Red Cell Distribution Width-SD 49.7 fL; White Blood Count 7.7 K/mm3 (4.8-10.8)
[2025-01-01 07:29] LABS: Hemoglobin 8.3 g/dL (12.2-16.2)
--- NOTE | 2025-01-01 07:49 | EXP.DC.SUM ---
General Admission date:: 12/31/24 Discharge date: 01/01/25 HPI HPI HPI: 54-year-old female with severe COPD, HFpEF, PEs, cor pulmonale, tobacco use disorder, chronic oxygen requirement. Came in for shortness of breath after participating in stress test today. Started feeling short of breath yesterday. Symptoms have worsened, worse with exertion. Had significant shortness of breath with completing stress test today and became hypoxic. Was sent to the ER for evaluation. States she had some increase in sputum production. Denies nausea, vomiting, diarrhea. No chest pain. On arrival to the ER, was placed on BiPAP given DuoNebs, Solu-Medrol, IV magnesium. Having improved response. Initial blood gas with chronic hypercapnia, compensated with normal pH on VBG. Elevated white count. Medicine consulted for admission due to acute on chronic respiratory failure. Showing improvement by the time she arrived to the floor. Off BiPAP but necessitating 6 L for sats in the high 90s. Alert and oriented x 4. Hospital Course Hospital Course Hospital Course: Rocio Gonzalez is a 54 year old female with medical history significant for COPD on room air, current tobacco smoker, bilateral PEs, anxiety/depression, seizure disorder, medication nonadherence who presents with progressive shortness of breath over the past few days, acutely worse after participating in stress test today. He was brought to the ER because of a respiratory distress. Found to be hypoxic. Placed on BiPAP with improvement in oxygenation. Medicine consulted for admission. Discussed case with ER physician, request admission for respiratory failure along with further workup of COPD exacerbation. I agreed to admit for further care. Pulmonology was consulted during admission. Patient returned to baseline oxygen by evening of admission day. Overall doing well. Adjustments made to her regimen. Stable to discharge home. Problems addressed as follows: #Acute on chronic hypoxic respiratory failure #Right pleural effusion improving #History of bilateral pulmonary emboli #Cor pulmonale, right heart failure # Gold stage IV COPD ? Presents with progressive shortness of breath, hypoxic on arrival. Initial pulse ox with sats in the 60s after participating in stress test. White count initially 16, improved to 7.7 by morning. Initiated on broad-spectrum antibiotics with ceftriaxone and azithromycin, received 1 dose of each. After consultation with pulmonology, will hold on further antibiotics and steroids given her prompt improvement back to her baseline after use of aggressive bronchodilation and nebulizer treatment. No indication for further steroids. Will continue DuoNebs at discharge. Has nebulizer, solution sent to her pharmacy. Blood and sputum cultures obtained, still pending at discharge. Based on her initial blood gas with pH of 7.38, PCO2 of 69. Appears to be compensated chronic hypercapnic respiratory failure. Bicarb 40, chronic compensation. Serial troponins were negative. Continue her Eliquis 5 mg twice daily for pulmonary emboli. Chest x-ray obtained in the ER showed improvement in her pleural effusions previously noted on CT and x-ray. Continue supplemental oxygen at 2 to 3 L per her baseline regimen for goal sats greater 90%. Will transition to Trelegy 200 inhaler. Plan for follow-up with pulmonology in the coming weeks. HFpEF CAD -Continue Lasix 40 mg daily, isosorbide 10 mg 3 times a day #Chronic normocytic anemia: Hemoglobin 8-9 during admission. Stable at her normal baseline range. Suspect secondary to chronic disease. Iron studies and folate and B12 from previous admission stable #Seizure disorder: Continue home Keppra 1000 mg twice daily. #Anxiety/depression: Continue Valium 2 mg daily as needed. Continue Vraylar 1.5 mg daily. #Current tobacco smoker: Has nicotine patch daily. Patient is motivated to quit. Counseled on need to quit. Concern of continued smoking significantly increases risk for recurrent exacerbations per Total time spent on discharge 32 minutes in counseling, documentation, chart review, and direct care with patient. Exam Data for Last 24 hours Vital signs and Labs for Last 24 Hours: Temp Pulse Resp BP Pulse Ox O2 Del Method O2 Flow Rate 98.0 F 92 H 20 129/82 96 Non-Rebreather 3 01/01/25 04:00 01/01/25 06:12 01/01/25 06:00 01/01/25 06:00 01/01/25 06:00 01/01/25 06:00 01/01/25 06:00 FiO2 40 12/31/24 13:44 Laboratory Results - last 24 hr 12/31/24 13:25: WBC 16.2 H, RBC 3.58 L, Hgb 9.3 L, Hct 31.1 L, MCV 86.9, MCH 26.0 L, MCHC 29.9 L, RDW 16.5, Plt Count 301, MPV 9.9, Neut % (Auto) 76.9, Lymph % (Auto) 14.1, [place] % (Auto) 8.0, Eos % (Auto) 0.1, Baso % (Auto) 0.3, Neut # (Auto) 12.5 H, Lymph # (Auto) 2.3, [place] # (Auto) 1.3 H, Eos # (Auto) 0.0, Baso # (Auto) 0.1, PT 11.6, INR 1.04, APTT 29.1, D-Dimer 0.80 H, VBG pH 7.38, VBG pCO2 69.8 H, VBG pO2 56.9 H, VBG HCO3 40.3 H, VBG Total CO2 42.4 H, VBG O2 Saturation 88.2 H, VBG Base Excess 15.1 H, VBG Lactic Acid 2.2 H, Sodium 133 L, Potassium 4.4, Chloride 88 L, Carbon Dioxide 40 H, Anion Gap 9.4, BUN 11, Creatinine 0.50 L, Estimated Creat Clear 96, Estimated GFR 128, Est GFR ( Amer) 155, Glucose 104 H, Lactate 1.7, Calcium 9.3, Total Bilirubin 0.5, AST 32, ALT 25, Alkaline Phosphatase 122, Troponin I 0.03, Total Protein 7.3, Albumin 4.4, Globulin 2.9, Albumin/Globulin Ratio 1.5 12/31/24 15:50: Chlamy pneumoniae PCR Not detected, Adenovirus (PCR) Not detected, B. pertussis DNA (PCR) Not detected, Coronavirus OC43 (PCR) Not detected, Coronavirus HKU1 (PCR) Not detected, Coronavirus 229E (PCR) Not detected, SARS-CoV-2 (PCR) Not detected, Coronavirus NL63 (PCR) Not detected, Human Metapneumovir PCR Not detected, Influenza A (H1) PCR Not detected, Influ A (H1N1/09) PCR Not detected, Influenza A (H3) PCR Not detected, Influenza Type A (PCR) Not detected, Influenza Type B (PCR) Not detected, M. pneumoniae (PCR) Not detected, Parainfluenza 1 (PCR) Not detected, Parainfluenza 2 (PCR) Not detected, Parainfluenza 3 (PCR) Not detected, Parainfluenza 4 (PCR) Not detected, RSV (PCR) Not detected, Entero/Rhino (PCR) Not detected 12/31/24 16:20: Lactate 3.0 H, Troponin I 0.03 12/31/24 19:47: Lactate 1.6, Troponin I 0.02 01/01/25 06:21: WBC 7.7 D, RBC 3.18 L, Hgb 8.3 L D, Hct 27.1 L, MCV 85.2, MCH 26.1 L, MCHC 30.6 L, RDW 16.0, Plt Count 263, MPV 10.8 H, Neut % (Auto) 79.8, Lymph % (Auto) 14.1, [place] % (Auto) 5.6, Eos % (Auto) 0.0 L, Baso % (Auto) 0.0 L, Neut # (Auto) 6.2, Lymph # (Auto) 1.1, [place] # (Auto) 0.4, Eos # (Auto) 0.0, Baso # (Auto) 0.0, Sodium 133 L, Potassium 4.2, Chloride 92 L, Carbon Dioxide 41 H*, Anion Gap 4.2 L, BUN 17 D, Creatinine 0.50 L, Estimated Creat Clear 73, Estimated GFR 128, Est GFR ( Amer) 155, Glucose 92, Calcium 8.5, Magnesium 2.2, Total Bilirubin 0.3, AST 24, ALT 19, Alkaline Phosphatase 92, Total Protein 6.2 L, Albumin 3.5 D, Globulin 2.7, Albumin/Globulin Ratio 1.3 I & O for Last 24 hours: Intake & Output 12/29/24 12/30/24 12/31/24 01/01/25 23:59 23:59 23:59 23:59 Intake Total 270 / 492 222 / 222 Output Total 0 / 0 Balance 270 / 492 222 / 222 Weight 47.627 kg 36.2 kg Constitutional Constitutional: mild distress, cachectic, chronically ill appearing and cooperative *Routine HEENT Exam Head: Present normocephalic and atraumatic Eye: Present EOMI and PERRL ENT: Present mucous membranes moist *Routine Neck Exam Neck: Present supple *Routine Respiratory Exam Respiratory: Present prolonged expiratory phase, wheezes, diminished air movement and normal respiratory effort; Absent accessory muscle use or crackles *Routine Cardiovascular Exam Cardiovascular: Present RRR, Normal S1 and Normal S2; Absent murmur, gallop or rubs *Routine Abdominal Exam Abdominal: Present soft; Absent tenderness *Routine Rectal Exam Patient deferred: visual exam *Routine Exam Patient deferred: external exam *Routine Extremities Exam Extremities: Present pulses intact; Absent cyanosis or edema *Routine Skin Exam Skin: Present intact; Absent erythema or wounds *Routine Neurological Exam Neurological: Present alert, oriented X3 and moving all extremities; Absent altered mental status Routine Psychiatric Exam Psychiatric: Present cooperative Results Data Completed and Pending Labs on day of discharge: Labs from last 24 hours 01/01/25 12/31/24 12/31/24 06:21 19:47 16:20 WBC 7.7 D RBC 3.18 L Hgb 8.3 L D Hct 27.1 L MCV 85.2 MCH 26.1 L MCHC 30.6 L RDW 16.0 Plt Count 263 MPV 10.8 H Neut % (Auto) 79.8 Lymph % (Auto) 14.1 [place] % (Auto) 5.6 Eos % (Auto) 0.0 L Baso % (Auto) 0.0 L Neut # (Auto) 6.2 Lymph # (Auto) 1.1 [place] # (Auto) 0.4 Eos # (Auto) 0.0 Baso # (Auto) 0.0 PT INR APTT D-Dimer VBG pH VBG pCO2 VBG pO2 VBG HCO3 VBG Total CO2 VBG O2 Saturation VBG Base Excess VBG Lactic Acid Sodium 133 L Potassium 4.2 Chloride 92 L Carbon Dioxide 41 H* Anion Gap 4.2 L BUN 17 D Creatinine 0.50 L Estimated Creat Clear 73 Estimated GFR 128 Est GFR ( Amer) 155 Glucose 92 Lactate 1.6 3.0 H Calcium 8.5 Magnesium 2.2 Total Bilirubin 0.3 AST 24 ALT 19 Alkaline Phosphatase 92 Troponin I 0.02 0.03 Total Protein 6.2 L Albumin 3.5 D Globulin 2.7 Albumin/Globulin Ratio 1.3 Chlamy pneumoniae PCR Adenovirus (PCR) B. pertussis DNA (PCR) Coronavirus OC43 (PCR) Coronavirus HKU1 (PCR) Coronavirus 229E (PCR) SARS-CoV-2 (PCR) Coronavirus NL63 (PCR) Human Metapneumovir PCR Influenza A (H1) PCR Influ A (H1N1/09) PCR Influenza A (H3) PCR Influenza Type A (PCR) Influenza Type B (PCR) M. pneumoniae (PCR) Parainfluenza 1 (PCR) Parainfluenza 2 (PCR) Parainfluenza 3 (PCR) Parainfluenza 4 (PCR) RSV (PCR) Entero/Rhino (PCR) 12/31/24 12/31/24 15:50 13:25 WBC 16.2 H RBC 3.58 L Hgb 9.3 L Hct 31.1 L MCV 86.9 MCH 26.0 L MCHC 29.9 L RDW 16.5 Plt Count 301 MPV 9.9 Neut % (Auto) 76.9 Lymph % (Auto) 14.1 [place] % (Auto) 8.0 Eos % (Auto) 0.1 Baso % (Auto) 0.3 Neut # (Auto) 12.5 H Lymph # (Auto) 2.3 [place] # (Auto) 1.3 H Eos # (Auto) 0.0 Baso # (Auto) 0.1 PT 11.6 INR 1.04 APTT 29.1 D-Dimer 0.80 H VBG pH 7.38 VBG pCO2 69.8 H VBG pO2 56.9 H VBG HCO3 40.3 H VBG Total CO2 42.4 H VBG O2 Saturation 88.2 H VBG Base Excess 15.1 H VBG Lactic Acid 2.2 H Sodium 133 L Potassium 4.4 Chloride 88 L Carbon Dioxide 40 H Anion Gap 9.4 BUN 11 Creatinine 0.50 L Estimated Creat Clear 96 Estimated GFR 128 Est GFR ( Amer) 155 Glucose 104 H Lactate 1.7 Calcium 9.3 Magnesium Total Bilirubin 0.5 AST 32 ALT 25 Alkaline Phosphatase 122 Troponin I 0.03 Total Protein 7.3 Albumin 4.4 Globulin 2.9 Albumin/Globulin Ratio 1.5 Chlamy pneumoniae PCR Not detected Adenovirus (PCR) Not detected B. pertussis DNA (PCR) Not detected Coronavirus OC43 (PCR) Not detected Coronavirus HKU1 (PCR) Not detected Coronavirus 229E (PCR) Not detected SARS-CoV-2 (PCR) Not detected Coronavirus NL63 (PCR) Not detected Human Metapneumovir PCR Not detected Influenza A (H1) PCR Not detected Influ A (H1N1/09) PCR Not detected Influenza A (H3) PCR Not detected Influenza Type A (PCR) Not detected Influenza Type B (PCR) Not detected M. pneumoniae (PCR) Not detected Parainfluenza 1 (PCR) Not detected Parainfluenza 2 (PCR) Not detected Parainfluenza 3 (PCR) Not detected Parainfluenza 4 (PCR) Not detected RSV (PCR) Not detected Entero/Rhino (PCR) Not detected DS: Diagnosis Discharge Diagnosis (1) Acute on chronic respiratory failure with hypoxia and hypercapnia: Status: Acute Code(s): J96.21 - Acute and chronic respiratory failure with hypoxia; J96.22 - Acute and chronic respiratory failure with hypercapnia (2) Pleural effusion: Status: Acute Code(s): J90 - Pleural effusion, not elsewhere classified (3) Multiple pulmonary emboli: Status: Acute Code(s): I26.99 - Other pulmonary embolism without acute cor pulmonale (4) Severe protein-calorie malnutrition: Status: Acute Code(s): E43 - Unspecified severe protein-calorie malnutrition (5) Anxiety: Status: Acute Code(s): F41.9 - Anxiety disorder, unspecified (6) Tobacco abuse: Status: Chronic Code(s): Z72.0 - Tobacco use (7) Seizure: Status: Chronic Code(s): R56.9 - Unspecified convulsions (8) (HFpEF) heart failure with preserved ejection fraction: Status: Chronic Code(s): I50.30 - Unspecified diastolic (congestive) heart failure Meds Home Medications and Allergies Home Medications ?Medication ?Instructions ?Recorded ?Confirmed ?Type levetiracetam 1,000 mg tablet 1,000 mg PO BID 09/26/22 12/31/24 History baclofen 10 mg tablet 10 mg PO TID #90 tabs 09/17/24 12/31/24 Rx albuterol sulfate 90 mcg/actuation 4 puff inhalation Q4HP PRN 12/02/24 12/31/24 History aerosol inhaler (Ventolin HFA) Shortness Of Breath Or Wheezing apixaban 5 mg tablet (Eliquis) 5 mg PO BID 12/02/24 12/31/24 History cariprazine 1.5 mg capsule 1.5 mg PO DAILY 12/02/24 12/31/24 History (Vraylar) ergocalciferol (vitamin D2) 1,250 1,250 mcg PO WEEKLY 12/02/24 12/31/24 History mcg (50,000 unit) capsule (Vitamin D2) ropinirole 1 mg tablet 1 mg PO HS 12/02/24 12/31/24 History diazepam 2 mg tablet (Valium) 2 mg PO DAILYP PRN anxiety 12/03/24 12/31/24 History isosorbide dinitrate 10 mg tablet 10 mg PO TID 30 days #90 tabs 12/04/24 12/31/24 Rx furosemide 40 mg tablet 40 mg PO DAILY #30 tabs 12/18/24 12/31/24 Rx pramipexole 1 mg tablet 1 mg PO DAILY 12/23/24 12/31/24 History ferrous sulfate 325 mg (65 mg 325 mg PO DAILY #90 tabs 12/26/24 12/31/24 Rx iron) tablet hydrocodone 5 mg-acetaminophen 325 1 tab PO Q8HP PRN Moderate Pain 12/31/24 12/31/24 History mg tablet (Scale Score 5-6) fluticasone fur. 200 mcg-umeclid 1 inh inhalation DAILY #60 ea 01/01/25 Rx 62.5 mcg-vilant 25 mcg inhalat.powder (Trelegy Ellipta) ipratropium 0.5 mg-albuterol 3 mg 3 ml inhalation Q4HP PRN shortness 01/01/25 Rx (2.5 mg base)/3 mL nebulization of breath or wheezing #180 mL soln New Prescriptions to Start Prescriptions: [id number] [Trelegy Ellipta] Jordan Beck ipratropium-albuterol Jordan Beck Allergies Allergy/AdvReac Type Severity Reaction Status Date / Time No Known Allergies Allergy Verified 12/31/24 15:32 Discharge Plan Disposition Patient Disposition: Home, Self-Care Condition: Fair Follow up Plan Follow up with: José Liriano APRN [Nurse Practitioner] - 01/08/25 2:00 pm Alejandrina Mckeon MD [Physician] - 01/15/25 11:20 am Prescriptions/Medication Reconciliation: New ipratropium-albuterol 0.5 mg-3 mg(2.5 mg base)/3 mL Solution For Nebulization 3 ml inhalation Q4HP PRN (Reason: shortness of breath or wheezing) Qty: 180 6RF Trelegy Ellipta 200-62.5-25 mcg Blister With Device 1 inh inhalation DAILY Qty: 60 0RF Continued levetiracetam 1,000 mg tablet 1,000 mg PO BID ferrous sulfate 325 mg (65 mg iron) tablet 325 mg PO DAILY Qty: 90 3RF furosemide 40 mg tablet 40 mg PO DAILY Qty: 30 5RF pramipexole 1 mg tablet 1 mg PO DAILY baclofen 10 mg tablet 10 mg PO TID Qty: 90 2RF hydrocodone-acetaminophen 5-325 mg tablet 1 tab PO Q8HP PRN (Reason: Moderate Pain (Scale Score 5-6)) Eliquis 5 mg tablet 5 mg PO BID ergocalciferol (vitamin D2) [Vitamin D2] 1,250 mcg (50,000 unit) capsule 1,250 mcg PO WEEKLY albuterol sulfate [Ventolin HFA] 90 mcg/actuation HFA aerosol inhaler 4 puff inhalation Q4HP PRN (Reason: Shortness Of Breath Or Wheezing) ropinirole 1 mg tablet 1 mg PO HS Vraylar 1.5 mg capsule 1.5 mg PO DAILY diazepam [Valium] 2 mg tablet 2 mg PO DAILYP PRN (Reason: anxiety) isosorbide dinitrate 10 mg Tablet 10 mg PO TID 30 Days Qty: 90 0RF Discontinued budesonide-formoterol [Symbicort] 80-4.5 mcg/actuation HFA aerosol inhaler 1 puff INHALATION BID Problem Reconciliation Problems Reviewed?: Yes Patient Discharge Instructions ACTIVITY: Continue current activity DIET: continue same diet Patient Instructions: DI for Respiratory Failure, Stop Light Pneumonia, Stop Light COPD Print Language: [place] Providers Primary Care Provider: Provider,Referral Admit Provider: Jordan Beck Attending Provider: Jordan Beck
--- NOTE | 2025-01-01 08:48 | PC.NURSE ---
DR PENA AT BEDSIDE
[2025-01-01] MEDS: ISOSORBIDE DINITRATE 10 MG TABLET PO ×2 (09:20→13:21)
[2025-01-01] MEDS: PRAMIPEXOLE 1MG TAB 1 MG PO (09:20)
[2025-01-01] MEDS: FLUTICASONE/UMECLIDIN/VILANTER 200/62.5/25MCG INHALER 1 PUFF IH (09:20)
[2025-01-01] MEDS: FUROSEMIDE 40 MG TABLET PO (09:21)
[2025-01-01] MEDS: BACLOFEN 10MG TABLET 10 MG PO ×2 (09:21→13:22)
[2025-01-01] MEDS: levETIRAcetam 500 MG TABLET 1000 MG PO (09:21)
[2025-01-01] MEDS: APIXABAN 5MG TABLET 5 MG PO (09:21)
--- NOTE | 2025-01-01 09:41 | EXP.PULM.CON ---
History of Present Illness History of present illness: Ms. Gonzalez is a 54-year-old female current smoker greater than [id number] smoker multiple hospital admissions recently with pneumonia needing intubation mechanical ventilatory support, worsening right-sided pleural effusion status post thoracentesis on 12/24/2024 found to be having worsening shortness of breath after stress test, sent to the ER for further evaluation and management. [facility] Disclaimer: The information contained in this section may have been updated after the patient was seen, as this information can be updated by other users. Medical History (Updated 01/01/25 @ 12:39 by Alejandrina Mckeon MD) Chronic respiratory failure with hypoxia and hypercapnia COPD mixed type Pleural effusion on right Epileptic seizure Pulmonary hypertension Elevated troponin Acute renal failure Acute liver failure Alcohol withdrawal Atypical pneumonia COPD (chronic obstructive pulmonary disease) Tobacco abuse counseling Tobacco abuse Encounter for screening for malignant neoplasm of lung in current smoker with 30 pack year history or greater Lung nodule Dyspnea on exertion Smoking greater than 30 pack years COPD (chronic obstructive pulmonary disease) Epileptic seizure Tobacco dependence syndrome Surgical History History of hysterectomy Family History Other Asthma COPD (chronic obstructive pulmonary disease) Hypertension Social History Smoking Status: Current every day smoker alcohol intake: never substance use type: denies use current occupational status: other Travel in the last 8 weeks?: None housing: other caffeine: Yes Review of Systems Constitutional Constitutional: Denies anorexia, Denies body ache(s) and Reports fatigue Eyes Eyes: Denies eye discharge, Denies dry eyes, Denies irritation and Denies itchy eyes ENT Ears, Nose, Mouth, and Throat: Denies epistaxis, Denies facial pain, Denies lip swelling and Denies throat swelling *Cardiovascular Cardiovascular: Reports dyspnea and Reports dyspnea on exertion *Respiratory Respiratory: Denies change in phlegm color, Reports chest congestion, Reports cough, Reports dyspnea, Reports dyspnea on exertion, Denies excessive phlegm production and Reports wheezing *Gastrointestinal Gastrointestinal: Denies abdominal pain, Denies belching and Denies cramping *Musculoskeletal Musculoskeletal: Reports back pain, Reports myalgias and Reports other (No small joint swelling or Pain) Psychiatric Psychiatric: Denies homicidal ideation and Denies suicidal ideation Endocrine Endocrine: Reports fatigue and Denies heat intolerance Hematologic/Lymphatic Hematologic/Lymphatic: Denies easy bleeding and Denies lymphadenopathy Allergic/Immunologic Allergic/Immunologic: Denies itchy eyes, Denies lip swelling, Denies throat swelling and Reports wheezing Pulmonology Exam Inpatient Vital signs and Labs for Last 24 Hours: Temp Pulse Resp BP Pulse Ox O2 Del Method O2 Flow Rate 98.1 F 100 H 24 130/76 93 L Nasal Cannula 3 01/01/25 08:00 01/01/25 08:00 01/01/25 07:30 01/01/25 07:30 01/01/25 07:30 01/01/25 09:00 01/01/25 09:00 FiO2 40 12/31/24 13:44 Laboratory Results - last 24 hr 12/31/24 13:25: WBC 16.2 H, RBC 3.58 L, Hgb 9.3 L, Hct 31.1 L, MCV 86.9, MCH 26.0 L, MCHC 29.9 L, RDW 16.5, Plt Count 301, MPV 9.9, Neut % (Auto) 76.9, Lymph % (Auto) 14.1, [place] % (Auto) 8.0, Eos % (Auto) 0.1, Baso % (Auto) 0.3, Neut # (Auto) 12.5 H, Lymph # (Auto) 2.3, [place] # (Auto) 1.3 H, Eos # (Auto) 0.0, Baso # (Auto) 0.1, PT 11.6, INR 1.04, APTT 29.1, D-Dimer 0.80 H, VBG pH 7.38, VBG pCO2 69.8 H, VBG pO2 56.9 H, VBG HCO3 40.3 H, VBG Total CO2 42.4 H, VBG O2 Saturation 88.2 H, VBG Base Excess 15.1 H, VBG Lactic Acid 2.2 H, Sodium 133 L, Potassium 4.4, Chloride 88 L, Carbon Dioxide 40 H, Anion Gap 9.4, BUN 11, Creatinine 0.50 L, Estimated Creat Clear 96, Estimated GFR 128, Est GFR ( Amer) 155, Glucose 104 H, Lactate 1.7, Calcium 9.3, Total Bilirubin 0.5, AST 32, ALT 25, Alkaline Phosphatase 122, Troponin I 0.03, Total Protein 7.3, Albumin 4.4, Globulin 2.9, Albumin/Globulin Ratio 1.5 12/31/24 15:50: Chlamy pneumoniae PCR Not detected, Adenovirus (PCR) Not detected, B. pertussis DNA (PCR) Not detected, Coronavirus OC43 (PCR) Not detected, Coronavirus HKU1 (PCR) Not detected, Coronavirus 229E (PCR) Not detected, SARS-CoV-2 (PCR) Not detected, Coronavirus NL63 (PCR) Not detected, Human Metapneumovir PCR Not detected, Influenza A (H1) PCR Not detected, Influ A (H1N1/09) PCR Not detected, Influenza A (H3) PCR Not detected, Influenza Type A (PCR) Not detected, Influenza Type B (PCR) Not detected, M. pneumoniae (PCR) Not detected, Parainfluenza 1 (PCR) Not detected, Parainfluenza 2 (PCR) Not detected, Parainfluenza 3 (PCR) Not detected, Parainfluenza 4 (PCR) Not detected, RSV (PCR) Not detected, Entero/Rhino (PCR) Not detected 12/31/24 16:20: Lactate 3.0 H, Troponin I 0.03 12/31/24 19:47: Lactate 1.6, Troponin I 0.02 01/01/25 06:21: WBC 7.7 D, RBC 3.18 L, Hgb 8.3 L D, Hct 27.1 L, MCV 85.2, MCH 26.1 L, MCHC 30.6 L, RDW 16.0, Plt Count 263, MPV 10.8 H, Neut % (Auto) 79.8, Lymph % (Auto) 14.1, [place] % (Auto) 5.6, Eos % (Auto) 0.0 L, Baso % (Auto) 0.0 L, Neut # (Auto) 6.2, Lymph # (Auto) 1.1, [place] # (Auto) 0.4, Eos # (Auto) 0.0, Baso # (Auto) 0.0, Sodium 133 L, Potassium 4.2, Chloride 92 L, Carbon Dioxide 41 H*, Anion Gap 4.2 L, BUN 17 D, Creatinine 0.50 L, Estimated Creat Clear 73, Estimated GFR 128, Est GFR ( Amer) 155, Glucose 92, Calcium 8.5, Magnesium 2.2, Total Bilirubin 0.3, AST 24, ALT 19, Alkaline Phosphatase 92, Total Protein 6.2 L, Albumin 3.5 D, Globulin 2.7, Albumin/Globulin Ratio 1.3 I & O for Labs for Last 24 Hours: Intake & Output 12/29/24 12/30/24 12/31/24 01/01/25 23:59 23:59 23:59 23:59 Intake Total 270 / 492 492 / 492 Output Total 0 / 0 Balance 270 / 492 492 / 492 Weight 105 lb 79 lb 12.917 oz Constitutional: Present mild distress Head: Present normocephalic and atraumatic ENT: Present normal exam, normal oropharynx and mucous membranes moist Neck: Present normal inspection and full ROM Respiratory: Present respiratory distress, diminished air movement and able to speak in complete sentences; Absent rhonchi, wheezes or crackles Cardiac: Present S1/S2, Tachycardia and radial pulses present GI: Present soft and distention; Absent tenderness or guarding Rectal (female): Present deferred (female): Present deferred Skin: Present intact; Absent cyanosis or jaundice Neuro: Present alert, awake and oriented x 3 Extremities: Present normal inspection; Absent clubbing or cyanosis Psychiatric: Present normal affect and cooperative Meds Home Medications and Allergies Home Medications ?Medication ?Instructions ?Recorded ?Confirmed ?Type levetiracetam 1,000 mg tablet 1,000 mg PO BID 09/26/22 12/31/24 History baclofen 10 mg tablet 10 mg PO TID #90 tabs 09/17/24 12/31/24 Rx albuterol sulfate 90 mcg/actuation 4 puff inhalation Q4HP PRN 12/02/24 12/31/24 History aerosol inhaler (Ventolin HFA) Shortness Of Breath Or Wheezing apixaban 5 mg tablet (Eliquis) 5 mg PO BID 12/02/24 12/31/24 History cariprazine 1.5 mg capsule 1.5 mg PO DAILY 12/02/24 12/31/24 History (Vraylar) ergocalciferol (vitamin D2) 1,250 1,250 mcg PO WEEKLY 12/02/24 12/31/24 History mcg (50,000 unit) capsule (Vitamin D2) ropinirole 1 mg tablet 1 mg PO HS 12/02/24 12/31/24 History diazepam 2 mg tablet (Valium) 2 mg PO DAILYP PRN anxiety 12/03/24 12/31/24 History isosorbide dinitrate 10 mg tablet 10 mg PO TID 30 days #90 tabs 12/04/24 12/31/24 Rx furosemide 40 mg tablet 40 mg PO DAILY #30 tabs 12/18/24 12/31/24 Rx pramipexole 1 mg tablet 1 mg PO DAILY 12/23/24 12/31/24 History ferrous sulfate 325 mg (65 mg 325 mg PO DAILY #90 tabs 12/26/24 12/31/24 Rx iron) tablet hydrocodone 5 mg-acetaminophen 325 1 tab PO Q8HP PRN Moderate Pain 12/31/24 12/31/24 History mg tablet (Scale Score 5-6) fluticasone fur. 200 mcg-umeclid 1 inh inhalation DAILY #60 ea 01/01/25 Rx 62.5 mcg-vilant 25 mcg inhalat.powder (Trelegy Ellipta) ipratropium 0.5 mg-albuterol 3 mg 3 ml inhalation Q4HP PRN shortness 01/01/25 Rx (2.5 mg base)/3 mL nebulization of breath or wheezing #180 mL soln New Prescriptions to Start Prescriptions: ipratropium-albuterol Jordan Beck [id number] [Trelegy Ellipta] Jordan Beck Allergies Allergy/AdvReac Type Severity Reaction Status Date / Time No Known Allergies Allergy Verified 12/31/24 15:32 Results Laboratory Findings 01/01/25 06:21 01/01/25 06:21 PT/INR, D-dimer PT 11.6 seconds (10.1-12.5) 12/31/24 13: INR 1.04 (0.9-1.1) 12/31/24 13: D-Dimer 0.80 ug/mL (0.0-0.5) H 12/31/24 13:25 Abnormal lab findings: Abnormal Labs 12/31/24 12/31/24 01/01/25 13:25 16:20 06:21 WBC 16.2 H RBC 3.58 L 3.18 L Hgb 9.3 L 8.3 L D Hct 31.1 L 27.1 L MCH 26.0 L 26.1 L MCHC 29.9 L 30.6 L MPV 10.8 H Eos % (Auto) 0.0 L Baso % (Auto) 0.0 L Neut # (Auto) 12.5 H [place] # (Auto) 1.3 H D-Dimer 0.80 H VBG pCO2 69.8 H VBG pO2 56.9 H VBG HCO3 40.3 H VBG Total CO2 42.4 H VBG O2 Saturation 88.2 H VBG Base Excess 15.1 H VBG Lactic Acid 2.2 H Sodium 133 L 133 L Chloride 88 L 92 L Carbon Dioxide 40 H 41 H* Anion Gap 4.2 L Creatinine 0.50 L 0.50 L Glucose 104 H Lactate 3.0 H Total Protein 6.2 L Assessment and Plan *Assessment and plan (1) COPD mixed type: Status: Acute Category: Medical Code(s): J44.9 - Chronic obstructive pulmonary disease, unspecified (2) Chronic respiratory failure with hypoxia and hypercapnia: Status: Acute Category: Medical Code(s): J96.11 - Chronic respiratory failure with hypoxia; J96.12 - Chronic respiratory failure with hypercapnia Plan Ms. Gonzalez is a 54-year-old female current smoker greater than 82-eyru-spsx smoker multiple hospital admissions recently with pneumonia needing intubation mechanical ventilatory support, worsening right-sided pleural effusion status post thoracentesis on 12/24/2024 found to be having worsening shortness of breath after stress test, sent to the ER for further evaluation and management. Status post right-sided thoracentesis removal of 250 mL pleural fluid. Cytopathology negative for malignant cells. Likely transudative effusion. Will follow-up with [facility]DH ratio. Chest x-ray on this admission significant improvement in the noted right-sided effusion and airspace disease. Labs on admission showed neutrophilic predominant leukocytosis improving, normalized to 7.7 today. Afebrile. Hemodynamically stable. Venous blood gas shows chronic hypercarbic respiratory failure. Comprehensive respiratory viral PCR panel negative. On examination patient did not appear to be in any severe respiratory distress. Chest clear to auscultate. Respiratory status at baseline. Plan: No need for antibiotics or steroids from pulmonary standpoint Continue Trelegy 200 inhaler along with albuterol/DuoNebs 4 times daily as needed. Previously on Trelegy 100 inhaler Continue oxygen supplementation 2 to 3 L to maintain O2 saturation goal of 90% and above # Thank you for involving pulmonary in this patient care. Will follow the patient in pulmonary clinic as previously scheduled
--- NOTE | 2025-01-01 12:34 | PC.NURSE ---
pt has made multiple calls to family for a ride home. reminded pt to have family bring portable o2 for discharge when someone is able to transport pt home
--- NOTE | 2025-01-01 14:37 | SW/DCPLANNER ---
Patient stated that her uncle will be transporting her home today. Uncle will also provide a portable O2 tank at discharge.
--- NOTE | 2025-01-02 12:09 | SW/DCPLANNER ---
Spoke with patient on the phone. Patient stated that she is doing good. Patient stated that she is aware of her upcoming appointments. Patient stated that she was able to get her new medicine from clinic pharmacy. Patient stated that she has no concerns or questions at this time. Warren Preciado
== END 2025-01-01 14:42 | disposition home or self-care (01) ==
LOC: ER 14:25 → 2ND 15:34
PROVIDERS: Admitting Provider Internal Medicine Adolescent Medicine; Emergency Provider Emergency Medicine; Visit Provider Internal Medicine Adolescent Medicine
DX: J96.21 Acute and chronic respiratory failure with hypoxia (principal); I26.99 Other pulmonary embolism without acute cor pulmonale; E43 Unspecified severe protein-calorie malnutrition; Z68.1 Body mass index [BMI] 19.9 or less, adult; Z99.81 Dependence on supplemental oxygen; I50.30 Unspecified diastolic (congestive) heart failure; Z91.198 Patient's noncompliance with other medical treatment and regimen for other reason; Z86.711 Personal history of pulmonary embolism; Z79.01 Long term (current) use of anticoagulants; Z79.51 Long term (current) use of inhaled steroids; F17.210 Nicotine dependence, cigarettes, uncomplicated; G40.909 Epilepsy, unspecified, not intractable, without status epilepticus
CPT/HCPCS: 36415; 71045; 80053; 82803; 83605; 83735; 84484; 85025; 85378; 85610; 85730; 87040; 87633; 93005; 94640; 99291; G0378; J0456; J0696; J2919; J3475; J7050; J7120; J7620

== ENCOUNTER 2025-01-16 12:32 | Outpatient (CLI) | payer OTHER, SELFPAY ==
--- NOTE | 2025-01-16 | CA_ITS ---
APPROVED REPORT Exam: Pharmacologic Technologist: Leigh Ann Raygoza Ht: 5 ft 4 in Wt: 87 lbs BSA: 1.37 m2 Medical History Medications: Duoneb, eliquis, baclofen, vitamin D2, ferrous sulfate, trelegy ellipta, furosemide, percocet, isosorbide dinitrate, levetiracetam, pramipexole, ropinirole. Stress Test Details Test: Lexiscan Reason for pharmacologic stress test: physical limitation. HR Resting HR: 89 bpm Max Heart Rate (APMHR): 165 bpm Max HR Achieved: 105 bpm Target HR (85% APMHR): 140 bpm % of APMHR: 64 Recovery HR: 101 bpm BP Resting BP: 133.0/80.0 mmHg Max BP: 134.0/72.0 mmHg Recovery BP: 128.0/74.0 mmHg ECG Stress ECG Conclusion Symptoms: No CP, nauseated. Arrhythmias/Ectopy: Freq PVCs. ST-T Changes: EKG nondiagnostic-Patricia. Electronically signed by : Olga Haddad MD 01/18/2025 21:04:55
[2025-01-16] MEDS: SODIUM CHLORIDE 0.9% 10ML SYR (RAD ONLY) 10 ML IV (13:51)
[2025-01-16] MEDS: REGADENOSON 0.4MG/5ML SYRINGE 0.4 MG IV (13:51)
== END 2025-01-16 23:59 | disposition home or self-care (01) ==
LOC: RAD 12:33
PROVIDERS: PCP Nurse Practitioner Family; Visit Provider Nurse Practitioner Family
DX: I49.3 Ventricular premature depolarization (principal)
CPT/HCPCS: 93017; 93018; J2785

== ENCOUNTER 2025-03-05 15:43 | Outpatient (CLI) | payer OTHER, SELFPAY ==
--- OUTSIDE RECORDS SUMMARY | 2025-03-05 15:47 | XMS_ITS | Clinical Summary ---
Author Organization [facility] Address [address] [place] [address] Care Team Providers Care Public Relations Counselor Name Role Phone System, Provider Not In Primary Care Provider Un available Source Comments This information has been disclosed to you from confidential records protectedfrom disclosure by state law. You shall make no further disclosure of thisinformation without the specific, written, andinformed release of theindividual to whom it pertains, or as otherwise permitted by law. A generalau thorization for the release of medical or other information is not sufficientfor the purposes of the release of HIV test results or diagnoses. [id number] Allergies No known active allergies Medications VENTOLIN HFA 90 mcg/actuation inhaler Inhale 2 puffs into the lungs every 4 hours as needed for Shortness of Breath or Wheezing. 5 Active albuterol (PROVENTIL) 2.5 mg /3 mL (0.083 %) nebulizer solution Inhale 3 mLs (2.5 mg total) by nebulization every 6 hours as needed for Wheezing or Shortness of Breath. 4 Active SYMBICORT 80-4.5 mcg/actuation inhaler Inhale 2 puffs into the lungs 2 times a day. 5 Active VRAYLAR 1.5 mg Cap Take 1 capsule (1.5 mg total) by mouth daily. 5 Active diazePAM (VALIUM) 2 MG tablet Take 1 tablet (2 mg total) by mouth daily as needed for Anxiety. 5 Active ergocalciferol (ERGOCALCIFEROL ) 1,250 mcg (50,000 unit) capsule Take 1 capsule (50,000 Units total) by mouth once a week. 3 Active HYDROcodone-millie taminophen (NORCO) 5-325 mg per tablet Take 1 tablet by mouth 3 times a day as needed for Pain. Active levETIRAcetam (KEPPRA) 1000 MG tablet Take 1 tablet (1,000 mg total) by mouth 2 times a day. 3 Active lisinopriL (PRINIVIL) 20 MG tablet Take 2 tablets (40 mg total) by mouth daily. 5 Active roPINIRole (REQUIP) 1 MG tablet Take 1 tablet (1 mg total) by mouth at bedtime. 5 Active apixaban (ELIQUIS) 5 mg Tab Take 1 tablet (5 mg total) by mouth 2 times a day. 60 tablet 11/26/2024 5:42 PM EDT Active Active Problems Problem Noted Date Diagnosed Date Other pulmonary embolism with acute cor pulmonal e 11/20/2024 Acute right-sided heart failure 11/20/2024 Pneumonia of right lower lobe due to infectious organism 11/20/2024 Acute liver failure without hepatic coma 025 Acute kidney injury 11/20/2024 Acute on chronic respiratory failure with hypoxi a 11/20/2024 Cardiogenic shock 11/20/2024 Social History Tobacco Use Types Packs/Day Years Used Date Smoking Tobacco: Every Day Cigarettes Passive Smoke Exposure: Current Tobacco Cessation:Ready to Q uit: Not Asked; Counseling Given: No Comments:Patient intubated and sedated and unable to obtain smoking history Alcohol Use Standard Drinks/Week Comments Not Currently 0 (1 standard drink = 0.6 oz pur e alcohol) Utilities Answer Date Recorded In the past 12 months has [employer], or water [employer] threatened to shut off services in your home? Patient unable to answer 11/20/2024 AUDIT-C Answer Date Recorded Q1: How often do you have a drink containing alcohol? Patient unable to answer 11/20/2024 Q2: How many drinks containi ng alcohol do you have on a typical day when you are drinking? Patient unable to answer Q3: How often do you have si x or more drinks on one occasion? Patient unable to answer 11/20/2024 Hunger Vital Sign Answer Date Recorded Within the past 12 months, y ou worried that your food would run out before you got the money to buy more. Patient unable to answer 11/20/2024 Within the past 12 months, t he food you bought just didn't last and you didn't have money to get more. Patient unable to answer 11/20/2024 PRAPARE - Transportation Answer Date Re corded In the past 12 months, has l ack of transportation kept you from medical appointments or from getting medications? Patient unable to answer 11/20/2024 In the past 12 months, has l ack of transportation kept you from meetings, work, or from getting things needed for daily living? Patient unable to answer 11/20/2024 Housing Stability Vital Sign Answer Michael e Recorded In the last 12 months, was t here a time when you were not able to pay the mortgage or rent on time? Patient unable to answer 11/20/2024 In the past 12 months, how m any times have you moved where you were living? 0 11/20/2024 At any time in the past 12 m [facility], were you homeless or living in a [place] facility (including now)? Patient unable to answer 11/20/2024 Comments No Sex and Gender Information Value Date Recorded Sex Assigned at Not on file Legal Sex Female 11:42 PM EDT Gender Identity Not on file Sexual Orientation Not on file Last Filed Vital Signs Vital Sign Reading Time Taken Comments Blood Pressure 132/91 11/26/2024 8:00 PM EDT Pulse 105 11/26/2024 10:00 PM EDT Temperature 36.6 C (97.9 F) 11/26/2024 8:00 PM EDT Respiratory Rate 18 11/26/2024 10:00 PM EDT Oxygen Saturation 94% 11/26/2024 10:00 PM EDT Inhaled Oxygen Concentration 94% 11/26/2024 1 0:00 PM EDT Weight 43.7 kg (96 lb 6.4 oz) 11/26/2024 4:00 AM EDT Height 162.6 cm (5' 4 ) 11/20/2024 8:00 AM EDT Body Mass Index 16.55 11/20/2024 8:00 AM EDT Plan of Treatment Health Maintenance Due Date Last Done Comments ASCVD Assessment 1969 Abnormal Colonoscopy Follow Up 1969 Diabetes Screening 1969 Lipid Panel 1969 Tobacco Cessation Readiness 1969 Depression Screening 10/26/1987 Immunization: DTaP/Tdap/Td (1 - Tdap) 1988 Immunization: Hepatitis B (1 of 3 - 19+ 3-dose series) 1988 Mammogram (MyChart) 2009 Cologuard (FIT-DNA) 2014 Colonoscopy 2014 Colorectal Cancer Screening (MyChart) 2014 Stool Testing (gFOBT) 2014 Immunization: Zoster (1 of 2) 10/26/2019 Lung Cancer Screening 10/26/2019 04/13/2016 Osteoporosis Screening (DXA Scan) 10/26/2019 Immunization: Pneumococcal ( 3 of 3 - PCV20 or PCV21) 02/17/2021 02/18/2016, 09/14/2012 Immunization: COVID-19 ( season) 2024 Immunization: Influenza (MyChart) (#1) 2025 HIV Screening Completed 11/20/2024 Hepatitis C Screening (CodeCombathart) Completed Procedures Procedure Name Priority Date/Time Associated Diagnosis Comments HIV 1+2 ANTIBODY/ANTIGEN WITH REFLEX Routine 11/20/2024 6:56 AM EDT HEPATITIS C ANTIBODY Routine 11/20/2024 6:56 AM EDT from Last 3 Months or Most Recently Relevant to Health Maintenance Results * Hepatitis C Antibody (11/20/2024 6:56 AM EDT) HCV Ab Nonreactive Nonreactive 11/20/2024 8:05 AM EDT [facility] Comment:Health Department no tified in accordance with reportable infectious disease guidelines. Serum 11/20/2024 6:56 AM EDT 11/20/2024 7:05 AM EDT Narrative [facility]ALTH [facility] - 11/20/2024 8:05 AM EDT Antibodies to HCV not detected; does not exclude the possibility of exposure to HCV. us Boris Alcaraz [facility] BLOOD ORDERABLES Final Resu lt [facility] [address] * HIV 1+2 Antibody/Antigen with Reflex (11/20/2024 6:56 AM EDT) HIV 1+2 AB/AGN Nonreactive Nonreactive 11/20/2024 7:56 AM EDT [facility] Serum 11/20/2024 6:56 AM EDT 11/20/2024 7:05 AM EDT Narrative [facility] - 11/20/2024 7:56 AM EDT \HIVRNR us Boris Alcaraz [facility] BLOOD ORDERABLES Final Resu lt [facility] [address] from Last 3 Months or Most Recently Relevant to Health Maintenance Insurance [employer] [facility] Advance Directives For more information, please contact: [phone] * Full Code (Latest Code Status on File) Date Activated Date Inactivated Comments 11/20/2024 2:34 AM 11/27/2024 2:18 AM Care Teams Public Relations Counselor Relationship Specialty Start Date End Date System, Provider Not In PCP - General 11/21/24
--- OUTSIDE RECORDS SUMMARY | 2025-03-05 15:47 | XMS_ITS | Clinical Summary ---
Author Organization Healthcare Address [address] [place] [address] Care Team Providers Care Shoveler Name Role Phone Mariana Faith Primary Care Provider Immunizations Immunization Administration Dates Next Due Influenza, seasonal, injectable 09/14/2012 Pneumococcal Conjugate PCV 13 02/18/2016 Pneumococcal Polysaccharide PPV23 09/14/2012 Family History Medical History Relation Name Comments Leukemia Father Asthma Mother COPD Mother Heart Problem Mother Hyperlipidemia Mother Hypertension Mother Relation Name Status Comments Father Mother Social History Tobacco Use Types Packs/Day Years Used Date Smoking Tobacco: Every Day Alcohol Use Standard Drinks/Week Comments Yes 0 (1 standard drink = 0.6 oz pure alcohol) Alcoholic Drinks/day: Occasional alcohol use Comments Unknown Sex and Gender Information Value Date Recorded Sex Assigned at Not on file Legal Sex Female 8:44 PM EDT Gender Identity Not on file Sexual Orientation Not on file Last Filed Vital Signs Vital Sign Reading Time Taken Comments Blood Pressure 104/64 11/19/2024 9:33 PM EDT MAP 78 Pulse 98 11/19/2024 6:15 PM EDT Temperature - - Respiratory Rate 27 11/19/2024 6:15 PM EDT Oxygen Saturation 86% 11/19/2024 6:15 PM EDT Inhaled Oxygen Concentration - - Weight 41.1 kg (90 lb 9.7 oz) 05/10/2017 9:34 AM EDT Height 152.4 cm (5') 05/10/2017 9:34 AM EDT Body Mass Index 17.7 05/10/2017 9:34 AM EDT Plan of Treatment Health Maintenance Due Date Last Done Comments [facility]-Depression Screening 1969 [facility]-/Child/Adol SDOH Screenings 1969 [facility]Y- SDOH Screenings 10/26/1987 UKY-Adult SDOH Screenings 10/26/1987 [facility]Y-DTaP,Tdap,and Td Vaccine s (1 - Tdap) 1988 [facility]Y-Hepatitis B Vaccines (1 of 3 - 19+ 3-dose series) 1988 CT Colonography 2014 Colonoscopy 2014 FIT-DNA 2014 FIT 2014 FOBT 2014 Sigmoidoscopy 2014 [facility]Y-Colorectal Cancer Screening 2014 [facility]Y-Pap Smear 09/11/2015 09/11/2012 UKY-Cervical Cancer Screening 09/11/2017 UKY-HPV/Cotest 09/11/2017 09/11/2012 UKY-Zoster Vaccines (1 of 2) 10/26/2019 UKY-Pneumococcal Vaccine: 50 + Years (3 of 3 - PCV20 or PCV21) 02/17/2021 02/18/2016, 09/14/2012 [id number] Vaccine (1 - 2023- season) 2024 [facility]Y-Influenza Vaccine (#1) 2025 09/14/2012 HPV Vaccines Aged Out No longer eligi ble based on patient's age to complete this topic UKY-HIB Vaccines Aged Out No longer e ligible based on patient's age to complete this topic UKY-Hepatitis A Vaccines Aged Out No longer eligible based on patient's age to complete this topic UKY-IPV Vaccines Aged Out No longer e ligible based on patient's age to complete this topic UKY-Rotavirus Vaccines Aged Out No lo nger eligible based on patient's age to complete this topic Procedures Procedure Name Priority Date/Time Associated Diagnosis Comments CYTO DATA CONVERSION Routine 09/11/2012 12:00 AM EST from Last 3 Months or Most Recently Relevant to Health Maintenance Results * Cytology (09/11/2012 12:00 AM EST) Peritoneal fluid specimen (specimen) 09/11/2012 09/12/2012 7:26 AM EST Narrative SUNQUEST - 09/15/2012 9:54 AM EST [facility] MR #: [id number] [facility] [address] [place], [place] [address] 1970 (Age: 41) FW Collect Date: 09/11/2012 00:00 Receipt Date: 09/12/2012 07:26 Page 1 DEPARTMENT OF PATHOLOGY AND LABORATORY MEDICINE CYTOPATHOLOGY REPORT Email: [email or web address] ATTENDING MD/Practitioner: Graeme Brown MD Service: [facility] Location: [facility] [place] OTHER MD(S): Valerie Alcaraz MD Reported: 09/15/2012 09:54 Collected: 09/11/2012 00:00 DIAGNOSIS A. PERITONEAL WASHING: (CONCENTRATE AND CELL BLOCK) NO EVIDENCE OF MALIGNANCY. Electronically Signed Out MASSIMO Schmidt (ASCP) Eugene Galeana M.D. PROCEDURES/ADDENDA GROSS DESCRIPTION: 20 ml's of bloody fluid. CLINICAL INFORMATION: CLINICAL DIAGNOSIS Right ovarian mass TOB abuse / COPD; ETOH abuse SPECIMEN DESCRIPTION: A: PERITONEAL WASHING THIN PREP PROCESS CELLULAR ENHANCEMENT, CELL BLOCK P ICD: 789.30 ABDOMINAL OR PELVIC SWELLING, MASS, OR LUMP, UNSPECIFIED SITE 496 CHRONIC AIRWAY OBSTRUCTION, NOT ELSEWHERE CLASSIFIED (COPD) 305.00 ALCOHOL ABUSE, UNSPECIFIED F: A; 36903 SNOMED CODES: A; E9C028 [id number] A resident has participated in this service. A pathologist has performed and is responsible for the reported pathologic evaluation. us Historical Provider LAB PATHOLOGY ORDERABLES Final Result Performing Organization Address City/State/[facility] Co de Phone Number SUNQUEST from Last 3 Months or Most Recently Relevant to Health Maintenance Insurance NA [facility] MEDICAID Care Teams Shoveler Relationship Specialty Start Date End Date Mariana Faith PA [address] [place] [address] PCP - General 01/01/21
--- OUTSIDE RECORDS SUMMARY | 2025-03-05 15:47 | XMS_ITS | Encounter Summary ---
Author Organization Healthcare Address [address] [place] [address] Care Team Providers Care Suspect Artist Supervisor Name Role Phone Mariana Faith Primary Care Provider [phone] Encounter Details Date Type Department Care Team (Latest Contact Info) Description 11/19/2024 Hospital Encounter Social History Tobacco Use Types Packs/Day Years [...] on file Sexual Orientation Not on file documented as of this encounter Miscellaneous Notes * Hospital Course - Shreya Eagle, COMPOSING MACHINE OPERATOR/TENDER - 11/19/2024 8:30 PM EDT Rocio Gonzalez is a 54 y.o. female with PMHx significant for who presented to OSH on withdyspnea and chest pain. Her work up at OSH was significant for NSTEMI, pulm emboli with right heartstrain; + CAP; + shock liver; + coagulopathy. She was intubated on for respiratory failure. VB.23/62/lactate 6.3 D-dimer 4.1 K 6 Cr 1.8 Gfr 29 Cr 1.9 Bili normal Ast 4301 Alt 2066 Alk phos 57 Troponin 0.44 Pro bnp 93100 Procal 2.13 INR 1.3 Wbc 25 Plt 309 She was given azith and rocephin EKG pulm dz pattern and non-specific T waves Drips: none Vent: RR 18, TV 400, fio2 50%, peep 5 Not anticoagulated yet but the plan to start heparin Vitals: 98, 102/54, 86%, 27 Acute on Chronic Hypoxic Hypercarbic Respiratory Failure Requiring mechanical Ventilation (POA) Pulmonary Emboli (POA) - Intubated for - Currently requiring minimal ventilatory support PLAN: - Full infectious workup - Continue mechanical ventilation to optimize oxygenation and ventilation; maintain SpO2 >/= 92%. - Wean FiO2 as tolerated - Empiric broad-spectrum antibiotics: {abx:18752} - Propofol and hydromorphone drips to facilitate tolerance of mechanical ventilation - CXR and ABG PRN Undifferentiated shock (POA) - Differentials: likely septic vs obstructive - WBC:, lactate: - Hemodynamically unstable -Imaging with evidence of the following: - Bedside US performed: - Cultures from OSH + for the following: - Patient received liters of crystalloid, received empirically at the OSH PLAN: - Serial ABG / VBG and lactate - Fluid boluses for 30 mL /kg - Levophed for MAP >65 - Change crowell - Boyd cultures: BC x2, PAL, UA, viral respiratory panel, Urine strep and legionella - Comprehensive GI panel and C. diff panel - EKG, TTE, ScVO2 with inotropic support as needed - Empiric abx: MARCIA (POA) -Baseline Cr is , patient Cr. currently is . -Multifactorial MARCIA is likely related to: medications, sepsis, hypotension, IV contrast, HRS, cardiorenal syndrome. PLAN: -Renal lytes, renal US pending. -Renally dose medications, avoid contrast medications -Consult the renal team when appropriate. Transaminitis (POA) - Etiology likely shock liver documented in this encounter Plan of Treatment Not on file documented as of this encounter Visit Diagnoses Not on filedocumented in this encounter Care Teams Suspect Artist Supervisor Relationship Specialty Start Date End Date Marinaa Faith PA [address] [place] [address] PCP - General 01/01/21 documented as of this encounter
[2025-03-05 16:13] LABS: Hematocrit 39.8 % (37.0-47.0); Hemoglobin 11.7 g/dL (12.2-16.2); Immature Granulocytes % 0.5 %; Mean Corpuscular HGB Conc 29.4 g/dL (31.8-35.4); Mean Corpuscular Hemoglobin 25.1 pg (27.0-31.2); Mean Corpuscular Volume 85.4 fl (81-99); Nucleated Red Blood Cells % 0 %; Platelet Count 294 K/mm3 (142-424); Red Blood Count 4.66 M/mm3 (4.20-5.40); Red Cell Distribution Width-SD 44.6 fL; White Blood Count 10.5 K/mm3 (4.8-10.8)
[2025-03-05 17:00] LABS: Iron 61 ug/dL (37-170)
[2025-03-05 17:14] LABS: Total Iron Binding Capacity 428 ug/dL (265-497)
[2025-03-05 17:15] LABS: Free T4 (Free Thyroxine) 1.24 ng/dl (0.78-2.19)
[2025-03-05 17:43] LABS: Ferritin 19.1 ng/ml (11.1-264)
[2025-03-05 19:32] LABS: Albumin Level 4.9 g/dl (3.5-5.0)
[2025-03-05 19:33] LABS: Chloride 93 mmol/L (98-107); Potassium 4.8 mmoL/L (3.5-5.1); Sodium 136 mmol/L (136-145)
[2025-03-05 19:35] LABS: Alanine Aminotransferase 17 U/L (12-78); Anion Gap 13.8 mEq/L (5-15); Aspartate Amino Transferase 29 U/L (14-36); Bilirubin,Unconjugated 0.1 mg/dL (0.0-1.1); Blood Urea Nitrogen 10 mg/dl (7-17); Carbon Dioxide 34 mmol/L (22.0-30.0); Creatinine,Serum 0.40 mg/dl (0.52-1.04); Estimated Glomerular Filt Rate 166 ml/min (>60); GFR (African American) 201 ML/MIN (>60); Total Protein,Serum 7.8 g/dl (6.3-8.2)
[2025-03-05 19:36] LABS: Alkaline Phosphatase 92 U/L (38-126); Bilirubin,Direct 0.2 mg/dl (0.0-0.4); Bilirubin,Indirect 0.1 mg/dL (0.0-0.9); Bilirubin,Total 0.3 mg/dl (0.2-1.3); Calcium 9.8 mg/dl (8.4-10.2); Cholesterol 215 mg/dl (140-200); Glucose 99 mg/dl (74-100); HDL Cholesterol 89 mg/dl (40-60); Magnesium 1.6 mg/dl (1.6-2.3); Triglycerides 80 mg/dl (30-150)
[2025-03-05 20:07] LABS: Thyroid Stimulating Hormone 5.06 uIU/mL (0.465-4.68)
== END 2025-03-05 23:59 | disposition home or self-care (01) ==
LOC: LAB 15:44
PROVIDERS: Nurse Practitioner Family; PCP Nurse Practitioner Family; Visit Provider Internal Medicine Medical Oncology
DX: D64.9 Anemia, unspecified (principal); I27.20 Pulmonary hypertension, unspecified; R79.89 Other specified abnormal findings of blood chemistry; E78.5 Hyperlipidemia, unspecified; I25.10 Atherosclerotic heart disease of native coronary artery without angina pectoris; I10 Essential (primary) hypertension
CPT/HCPCS: 36415; 80048; 80061; 80076; 82728; 83540; 83550; 83735; 84439; 84443; 85025

== ENCOUNTER 2025-03-19 09:07 | Day surgery (SDC) | payer OTHER, SELFPAY ==
[2025-03-19] VITALS (11 sets, daily range): BP systolic 113–159; BP diastolic 67–89; PULSE 62–83; RESP 16–20; O2SAT 90–100; BMI 15.6
--- NOTE | 2025-03-19 07:38 | IR_ITS ---
APPROVED REPORT Patient Location: Outpatient PROCEDURES Left heart catheterization Left ventriculogram Selective coronary angiogram INDICATION Abnormal Myoview, Angina pectoris Informed consent was obtained prior to the procedure. COMPLICATIONS NONE Estimated Blood Loss: LESS THAN 10 ML TECHNIQUE One percent lidocaine used to anesthetize the right anterior aspect of the wrist. The right radial artery was accessed via the Seldinger technique. A 6 Albanian sheath was placed in the right radial artery. 2.5 mg of Verapamil, 800 mcg of nitroglycerin, 1mg Lidocaine and 5000 U Heparin were given through the arterial sheath. The JL3 catheter was also used to perform left heart catheterization, left ventriculogram and selective coronary angiogram. At the end of the procedure the sheath was removed good hemostasis was achieved using Traclet band, patient was transferred to the postop holding area in stable condition. ANGIOGRAPHIC RESULTS The left main artery Normal The left anterior descending artery Mild 10% diffuse luminal regularities within mid vessel mild to moderate myocardial bridge compressing 50% during systole The circumflex artery Mild 10% luminal regularities The right coronary artery Dominant mild 10% luminal regularities The CARLOS ventriculogram reveals Hyperdynamic 80% The left ventricular end-diastolic pressure 25 mmHg IMPRESSION Nonflow limiting coronary artery disease Hyperdynamic ventricle with elevated LVEDP Inconsequential myocardial bridge PLAN 1. Medical management 2. Further evaluation of hyperdynamic ventricle Electronically signed by : Julio Dunbar MD 03/19/2025 11:22:26
[2025-03-19 09:46] LABS: Hematocrit 39.7 % (37.0-47.0); Hemoglobin 11.7 g/dL (12.2-16.2); Immature Granulocytes % 0.3 %; Mean Corpuscular HGB Conc 29.5 g/dL (31.8-35.4); Mean Corpuscular Hemoglobin 25.4 pg (27.0-31.2); Mean Corpuscular Volume 86.3 fl (81-99); Nucleated Red Blood Cells % 0 %; Platelet Count 294 K/mm3 (142-424); Red Blood Count 4.60 M/mm3 (4.20-5.40); Red Cell Distribution Width-SD 44.2 fL; White Blood Count 10.3 K/mm3 (4.8-10.8)
[2025-03-19 09:52] LABS: Anion Gap 11.4 mEq/L (5-15); Blood Urea Nitrogen 13 mg/dl (7-17); Calcium 9.7 mg/dl (8.4-10.2); Carbon Dioxide 34 mmol/L (22.0-30.0); Chloride 96 mmol/L (98-107); Creatinine Clearance Estimated 83 mL/min (50-200); Creatinine,Serum 0.50 mg/dl (0.52-1.04); Estimated Glomerular Filt Rate 128 ml/min (>60); GFR (African American) 155 ML/MIN (>60); Glucose 104 mg/dl (74-100); Potassium 4.4 mmoL/L (3.5-5.1); Sodium 137 mmol/L (136-145)
[2025-03-19] MEDS: HEPARIN 1,000 UNITS/500ML NS (CATH LAB) 3000 UNIT IV (10:55)
[2025-03-19] MEDS: LIDOCAINE 1% 10ML MDV 10 ML IJ (10:56)
[2025-03-19] MEDS: NITROGLYCERIN 800MCG/8ML SYR (CATH LAB) 800 MCG IA (10:56)
[2025-03-19] MEDS: HEPARIN 1,000 UNITS/ML 10ML VIAL (CATH LAB) 5000 UNIT IV (10:56)
[2025-03-19] MEDS: VERAPAMIL 2.5MG/ML 2ML VIAL 2.5 MG IV (10:56)
[2025-03-19] MEDS: 0.9 % SODIUM CHLORIDE 500 ML 25 ML IV (10:56)
[2025-03-19] MEDS: FENTANYL 100MCG/2ML VIAL 25 MCG IV (11:13)
[2025-03-19] MEDS: MIDAZOLAM HCL 1MG/ML 5ML VIAL 1 MG IV (11:13)
[2025-03-19] MEDS: IOPAMIDOL-370 (76%);100ML BOTTLE 50 ML IV (15:15)
== END 2025-03-19 14:34 | disposition home or self-care (01) ==
LOC: CATHLAB 09:09
PROVIDERS: PCP Nurse Practitioner Family; Visit Provider Internal Medicine
PROC: 4A023N7 Measurement of Cardiac Sampling and Pressure, Left Heart, Percutaneous Approach (ICD-10-PCS; CPT 93452; principal; 2025-03-19 09:45)
DX: I25.119 Atherosclerotic heart disease of native coronary artery with unspecified angina pectoris (principal); R94.39 Abnormal result of other cardiovascular function study; I11.0 Hypertensive heart disease with heart failure; I50.33 Acute on chronic diastolic (congestive) heart failure; R79.89 Other specified abnormal findings of blood chemistry; E78.5 Hyperlipidemia, unspecified; I27.20 Pulmonary hypertension, unspecified; G40.909 Epilepsy, unspecified, not intractable, without status epilepticus; J18.9 Pneumonia, unspecified organism; J90 Pleural effusion, not elsewhere classified; J44.9 Chronic obstructive pulmonary disease, unspecified; I26.99 Other pulmonary embolism without acute cor pulmonale; F17.210 Nicotine dependence, cigarettes, uncomplicated; Z82.49 Family history of ischemic heart disease and other diseases of the circulatory system; Z79.82 Long term (current) use of aspirin; Z79.01 Long term (current) use of anticoagulants; Z79.51 Long term (current) use of inhaled steroids; Z79.899 Other long term (current) drug therapy
CPT/HCPCS: 80048; 85025; 93458; 99152; C1725; C1769; J1200; J1644; J3010; J7040; Q9967

== ENCOUNTER 2025-06-05 13:41 | Outpatient (CLI) | payer OTHER, SELFPAY ==
--- NOTE | 2025-06-05 13:48 | XR_ITS ---
FINAL REPORT TECHNIQUE: 2 view chest CLINICAL HISTORY: SOB, cough x2 weeks COMPARISON: 06/28/2018 FINDINGS: PA and lateral views of the chest were obtained. The cardiac and mediastinal silhouettes are within normal limits. Changes of emphysema are present. There is evidence of remote granulomatous disease. There is a prominent right upper lobe bulla, with increased wall thickening compared to the prior chest x-ray of 06/28/2018, but similar to the chest CT of 05/11/2023. There is no pleural effusion or pneumothorax. No acute osseous abnormality is identified. IMPRESSION: Changes of emphysema, and prominent right upper lobe bulla similar to the chest CT of 05/11/2023. No acute intrathoracic abnormality is identified. Reviewed, Interpreted and Dictated by More Robledo MD Transcribed by Sonali Benavidez Authenticated and [facility]
--- OUTSIDE RECORDS SUMMARY | 2025-06-05 13:53 | XMS_ITS | Clinical Summary ---
[facility] Address [address] [place] [address] Care Team Providers Care Traveling Missionary Name Role Phone Gonzalez Goldman MD Primary Care Provider Allergies No known active allergies Medications clonazePAM (KlonoPIN) 0.5 MG tablet 01/30/2023 Active vitamin D (ERGOCALCIFEROL) 1.25 MG (81854 UT) capsule capsule 02/16/2023 Active levETIRAcetam (KEPPRA) 1000 MG tablet 02/16/2023 Active Anoro Ellipta 62.5-25 MCG/ACT aerosol powder inhaler 01/20/2023 Active pramipexole (MIRAPEX) 1 MG tablet 02/03/2023 Active lisinopril (PRINIVIL,ZESTRI L) 20 MG tablet 02/16/2023 Act pawan HYDROcodone-acet aminophen (NORCO) 5-325 MG per tablet Take 1 tablet by mouth Every 6 (Six) Hours As Needed. Active Social History Tobacco Use Types Packs/Day Years Used Date Smoking Tobacco: Every Day Cigarettes 2 30 Tobacco Cessation:Counseling Given: Not Answered Alcohol Use Standard Drinks/Week Comments Yes 0 (1 standard drink = 0.6 oz pur e alcohol) Abuse Screen Answer Date Recorded Unsafe at Home or Work/School Not on file Feels Threatened by Someone? Not on file 04/2023 Does Anyone Keep You from Co ntacting Others or Doint Things Outside the Home? Not on file 05/29/2023 Physical Sign of Abuse Present Not on file 1 Housing Stability Answer Date Recorded Current Living Arrangements Not on file 04/2023 Potentially Unsafe Housing Conditions Not on fortino e 05/29/2023 Family and Community Support Answer Michael e Recorded Help with Day-to-Day Activities Not on file 05/29/2023 Lonely or Isolated Not on file 05/29/2023 Employment Answer Date Recorded Do you want help finding or keeping work or a moustapha b? Not on file 05/29/2023 Disabilities Answer Date Recorded Concentrating, Remembering, or Making Decisions Difficulty Not on file 05/29/2023 Doing Errands Independently Difficulty Not on fi le 05/29/2023 Education Answer Date Recorded Help with school or training? Not on file Preferred Language Not on file 05/29/2023 Comments Unknown Sex and Gender Information Value Date Recorded Sex Assigned at Not on file Legal Sex Female 10:16 AM EDT Gender Identity Not on file Sexual Orientation Not on file Last Filed Vital Signs Vital Sign Reading Time Taken Comments Blood Pressure 136/82 08/04/2015 10:58 AM EST Pulse - - Temperature 36.7 C (98 F) 02/20/2023 12:38 PM EDT Respiratory Rate 17 02/20/2023 12:38 PM EDT Oxygen Saturation - - Inhaled Oxygen Concentration - - Weight 46.9 kg (103 lb 6.4 oz) 02/20/2023 12:38 PM EDT Height 154.9 cm (5' 1 ) 02/20/2023 12:38 PM EDT Body Mass Index 19.54 02/20/2023 12:38 PM EDT Plan of Treatment Health Maintenance Due Date Last Done Comments Annual Gynecologic Pelvic an d Breast Exam 1970 MAMMOGRAM 2009 COLOGUARD 2014 COLON CANCER SCREENING 5 YEA R SIGMOIDOSCOPY 2014 COLONOSCOPY [address] CANCER SCREENING 2014 CT COLONOGRAPHY 2014 FECAL OCCULT BLOOD TEST 2014 FIT Testing (1 year) 2014 ZOSTER VACCINE (1 of 2) 10/26/2019 Pneumococcal Vaccine 50+ (3 of 3 - PCV20 or PCV21) 02/17/2021 02/18/2016, 03/26/2014, 09/14/2012 ANNUAL WELLNESS VISIT 01/05/2023 HEPATITIS C SCREENING 01/05/2023 INFLUENZA VACCINE 03/21/2025 06/07/2019, 09/14/2012 TDAP/TD VACCINES (4 - Td or Tdap) 08/19/2030 08/19/2020, 06/28/2018, 09/30/2015 LUNG CANCER SCREENING Discontinued 04/13/2016 Insurance [employer]TER [employer] MEDICARE ADVANTAGE Care Teams Traveling Missionary Relationship Specialty Start Date End Date Gonzalez Goldman MD [address] [address] [address] ATTN: [place] [address] PCP - General Emergency Medicine 12/20/22
--- OUTSIDE RECORDS SUMMARY | 2025-06-05 13:53 | XMS_ITS | Clinical Summary ---
Author Organization Healthcare Address [address] [place] [address] Care Team Providers Care Coat Agent Name Role Phone Mariana Faith Primary Care Provider [phone] Immunizations Immunization Administration Dates Next Due Influenza, [...] Date Last Done Comments [facility]-Depression Screening 1970 [facility]-Infant/Child/Adol SDOH Screenings 1970 [facility]Y- SDOH Screenings 10/26/1987 [...] - PCV20 or PCV21) 02/17/2021 02/18/2016, 09/14/2012 [id number] Vaccine (1 - season) 2025 [facility]Y-Influenza Vaccine (#1) 2025 09/14/2012 HPV Vaccines [...] Narrative SUNQUEST - 09/15/2012 9:54 AM EST [facility] MR #: [id number] [facility] [address] [place], [place] [address] 1970 (Age: 41) FW Collect Date: 09/11/2012 00:00 Receipt Date: 09/12/2012 07:26 Page 1 DEPARTMENT OF PATHOLOGY AND LABORATORY MEDICINE CYTOPATHOLOGY REPORT Email: [email or web address] ATTENDING MD/Practitioner: Graeme Brown MD Service: [facility] Location: [facility] [place] OTHER MD(S): Valerie Alcaraz MD Reported: 09/15/2012 [...] (COPD) 305.00 ALCOHOL ABUSE, UNSPECIFIED F: A; 59348 SNOMED CODES: A; M5A557 [id number] A resident has participated in this service. A pathologist has performed and is responsible for the reported pathologic evaluation. us Historical Provider LAB PATHOLOGY ORDERABLES Fin al Result SUNQUEST from Last 3 Months or Most Recently Relevant to Health Maintenance Insurance [facility]ENA [facility] MEDICAID Care Teams Coat Agent Relationship Specialty Start Date End Date Mariana Faith PA [address] [place] [address] PCP - General 01/01/21
--- OUTSIDE RECORDS SUMMARY | 2025-06-05 13:53 | XMS_ITS | Clinical Summary ---
Author Organization [facility] Address [address] [place] [address] Care Team Providers Care Acid Condenser Name Role Phone System, Provider Not In [...] release of HIV test results or diagnoses. [id number] Allergies No known active allergies Medications [...] Recorded In the past 12 months has [employer], [employer], or water [employer] threatened to shut off services in your [...] any time in the past 12 [facility], were you homeless or living in a penitentiary (including now)? Patient unable to answer 11/20/2024 [...] 02/17/2021 02/18/2016, 09/14/2012 Immunization: COVID-19 ( season) 2025 Immunization: Influenza (MyChart) (#1) 2025 HIV Screening Completed 11/20/2024 Hepatitis C Screening ([place]art) Completed Procedures Procedure Name Priority Date/Time Associated [...] of exposure to HCV. us Boris Alcaraz [facility] LAB BLOOD ORDERABLES Final Resu lt [facility] [address] * HIV 1+2 Antibody/Antigen with Reflex (11/20/2024 6:56 AM EDT) HIV 1+2 AB/AGN Nonreactive Nonreactive 11/20/2024 7:56 AM EDT [facility] Serum 11/20/2024 6:56 AM EDT 11/20/2024 7:05 AM EDT Narrative [facility] - 11/20/2024 7:56 AM EDT \HIVRNR us Boris Alcaraz [facility] LAB BLOOD ORDERABLES Final Resu lt [facility] [address] from Last 3 Months or Most Recently Relevant to Health Maintenance Insurance AETNA [facility] Advance Directives For more information, please contact: [phone] * Full Code (Latest Code Status on File) Date Activated Date Inactivated Comments 11/20/2024 2:34 AM 11/27/2024 2:18 AM Care Teams Acid Condenser Relationship Specialty Start Date End Date System, Provider Not In PCP - General 11/21/24
--- OUTSIDE RECORDS SUMMARY | 2025-06-05 13:53 | XMS_ITS | Encounter Summary ---
Author Organization Healthcare Address [address] [place] [address] Care Team Providers Care Customer Professional Name Role Phone Mariana Faith Primary Care Provider Encounter Details Date Type Department Care Team [...] Notes * Hospital Course - Shreya Eagle, LIABILITY ANALYST - 11/19/2024 8:30 PM EDT Rocio Gonzalez [...] Alk phos 57 Troponin 0.44 Pro bnp 83544 Procal 2.13 INR 1.3 Wbc 25 Plt [...] FiO2 as tolerated - Empiric broad-spectrum antibiotics: {abx:93996} - Propofol and hydromorphone drips to facilitate [...] on filedocumented in this encounter Care Teams Customer Professional Relationship Specialty Start Date End Date Mariana Faith PA [address] [place] [address] PCP - General 01/01/21 documented as of this encounter
[2025-06-05 14:20] LABS: Hematocrit 37.1 % (37.0-47.0); Hemoglobin 11.4 g/dL (12.2-16.2); Immature Granulocytes % 0.3 %; Mean Corpuscular HGB Conc 30.7 g/dL (31.8-35.4); Mean Corpuscular Hemoglobin 27.1 pg (27.0-31.2); Mean Corpuscular Volume 88.1 fl (81-99); Nucleated Red Blood Cells % 0 %; Platelet Count 305 K/mm3 (142-424); Red Blood Count 4.21 M/mm3 (4.20-5.40); Red Cell Distribution Width-SD 45.1 fL; White Blood Count 9.7 K/mm3 (4.8-10.8)
[2025-06-05 14:47] LABS: Iron 92 ug/dL (37-170)
[2025-06-05 14:58] LABS: Total Iron Binding Capacity 342 ug/dL (265-497)
[2025-06-05 15:23] LABS: Ferritin 49.4 ng/ml (11.1-264)
== END 2025-06-05 23:59 | disposition home or self-care (01) ==
LOC: RAD 13:43
PROVIDERS: Internal Medicine Medical Oncology; PCP Nurse Practitioner Family; Visit Provider Internal Medicine Pulmonary Disease
DX: J43.9 Emphysema, unspecified (principal); D50.9 Iron deficiency anemia, unspecified
CPT/HCPCS: 36415; 71046; 82728; 83540; 83550; 85025

== ENCOUNTER 2025-07-02 13:58 | Observation (INO) | payer OTHER, SELFPAY ==
[2025-07-02] VITALS (16 sets, daily range): BP systolic 91–128; BP diastolic 53–80; PULSE 72–122; RESP 15–25; TEMP 36.9–37.1; O2SAT 84–98; BMI 17.9
--- OUTSIDE RECORDS SUMMARY | 2025-07-02 14:36 | XMS_ITS | Clinical Summary ---
Author Organization Healthcare Address [address] [place] [address] Care Team Providers Care Link Trainer Mechanic Name Role Phone Mariana Faith Primary Care Provider [phone] Immunizations Immunization Administration Dates Next Due Influenza, [...] - PCV20 or PCV21) 02/17/2021 02/18/2016, 09/14/2012 [id number] Vaccine (1 - season) 2025 [facility]-Influenza Vaccine [...] Narrative SUNQUEST - 09/15/2012 9:54 AM EST [facility] MR #: [id number] [facility] [address] [place], [place] [address] 1970 (Age: 41) FW Collect Date: 09/11/2012 00:00 Receipt Date: 09/12/2012 07:26 Page 1 DEPARTMENT OF PATHOLOGY AND LABORATORY MEDICINE CYTOPATHOLOGY REPORT Email: [email or web address] ATTENDING MD/Practitioner: Graeme Brown MD Service: [facility] [place] [facility] [place] OTHER MD(S): Valerie Alcaraz MD Reported: 09/15/2012 [...] (COPD) 305.00 ALCOHOL ABUSE, UNSPECIFIED F: A; 23473 SNOMED CODES: A; I8I715 [id number] A resident has participated in this service. A pathologist has performed and is responsible for the reported pathologic evaluation. us Historical Provider LAB PATHOLOGY ORDERABLES Fin al Result SUNQUEST from Last 3 Months or Most Recently Relevant to Health Maintenance Insurance AENA [facility] MEDICAID Care Teams Link Trainer Mechanic Relationship Specialty Start Date End Date Mariana Faith PA [address] [place] [address] PCP - General 01/01/21
--- OUTSIDE RECORDS SUMMARY | 2025-07-02 14:36 | XMS_ITS | Clinical Summary ---
[facility] Address [address] [place] [address] Care Team Providers Care Automatic Spinning Lathe Setter Name Role Phone Gonzalez Goldman MD Primary Care Provider [phone] Allergies No known active allergies Medications clonazePAM (KlonoPIN) 0.5 MG tablet 01/30/2023 Active vitamin D (ERGOCALCIFEROL) 1.25 MG (91879 UT) capsule capsule 02/16/2023 Active levETIRAcetam (KEPPRA) [...] [employer] BETTER [employer] MEDICARE ADVANTAGE Care Teams Automatic Spinning Lathe Setter Relationship Specialty Start Date End Date Gonzalez Goldman MD [address] [address] [address] ATTN: [place] [address] PCP - General Emergency Medicine 12/20/22
--- OUTSIDE RECORDS SUMMARY | 2025-07-02 14:36 | XMS_ITS | Encounter Summary ---
Author Organization Healthcare Address [address] [place] [address] Care Team Providers Care Sales Ambassador Name Role Phone Mariana Faith Primary Care [...] Notes * Hospital Course - Shreya Eagle, PROTECTIVE SIGNAL INSTALLER - 11/19/2024 8:30 PM EDT Rocio Gonzalez [...] Alk phos 57 Troponin 0.44 Pro bnp 88411 Procal 2.13 INR 1.3 Wbc 25 Plt [...] FiO2 as tolerated - Empiric broad-spectrum antibiotics: {abx:12312} - Propofol and hydromorphone drips to facilitate [...] on filedocumented in this encounter Care Teams Sales Ambassador Relationship Specialty Start Date End Date Mariana Faith PA [address] [place] [address] PCP - General 01/01/21 documented as of this encounter
--- OUTSIDE RECORDS SUMMARY | 2025-07-02 14:36 | XMS_ITS | Clinical Summary ---
Author Organization [facility] Address [address] [place] [address] Care Team Providers Care Lasting Room Supervisor Name Role Phone System, Provider Not In Primary Care Provider Un available Source Comments This information has been disclosed to you from confidential records protectedfrom disclosure by state law. You shall make no further disclosure of thisinformation without the specific, written, and informed release of theindividual to whom it pertains, or as otherwise permitted by law. A generalauthorization for the release of medical or other information is not sufficientfor the purposes of therelease of HIV test results or diagnoses. [id number] Allergies No known active allergies Medications [...] day. 60 tablet 11/26/2024 5:42 PM EDT 5 Active Active Problems Problem Noted Date Diagnosed [...] drink = 0.6 oz pur e alcohol) [facility] Utilities Answer Date Recorded In the past 12 months has [employer], [employer], or water [employer] threatened to shut off services in your [...] any time in the past 12 m [facility], were you homeless or living in a jail (including now)? Patient unable to answer 11/20/2024 [...] Immunization: COVID-19 ( season) 2025 Immunization: Influenza (CLAREDhart) (#1) 2025 HIV Screening Completed 11/20/2024 Hepatitis C Screening (CLAREDhart) Completed Procedures Procedure Name Priority Date/Time Associated [...] exclude the possibility of exposure to HCV. Boris Alcaraz [facility] BLOOD ORDERABLES Final Resu lt [facility] [address] * HIV 1+2 Antibody/Antigen with Reflex (11/20/2024 6:56 AM EDT) HIV 1+2 AB/AGN Nonreactive Nonreactive 11/20/2024 7:56 AM EDT [facility] Serum 11/20/2024 6:56 AM EDT 11/20/2024 7:05 AM EDT Narrative [facility] - 11/20/2024 7:56 AM EDT \HIVRNR Boris Alcaraz [facility] BLOOD ORDERABLES Final Resu lt [facility] [address] from Last 3 Months or Most Recently Relevant to Health Maintenance Insurance [employer] [facility] Advance Directives For more information, please contact: [phone] * Full Code (Latest Code Status on File) Date Activated Date Inactivated Comments 11/20/2024 2:34 AM 11/27/2024 2:18 AM Care Teams Lasting Room Supervisor Relationship Specialty Start Date End Date System, Provider Not In PCP - General 11/21/24
--- NOTE | 2025-07-02 14:49 | CT_ITS ---
FINAL REPORT TECHNIQUE: Thin section axial CT with contrast with multiplanar reconstruction This study was performed with techniques to keep radiation doses as low as reasonably achievable, (ALARA). Individualized dose reduction techniques using automated exposure control or adjustment of mA and/or kV according to the patient's size were employed. CLINICAL HISTORY: shortness of breath, wheezing, low o2 sats patient thinks she has shingles pt states she has lung cancer COMPARISON: 12/02/2024 FINDINGS: CTA CHEST: Pulmonary vessels enhance in normal fashion without evidence of embolism. The pulmonary veins are enlarged centrally, suggesting pulmonary arterial hypertension. Thoracic aorta shows no dissection or aneurysm. Severe changes of emphysema are present. There is bullous disease in the right lung apex, the largest bulla has a thin mural calcification. These are stable in appearance. No mass or pneumonia is identified. There is no significant pleural effusion. There is no significant pericardial effusion. No mediastinal or hilar adenopathy is present. There are mild enhancing lesions in the liver, which are nonspecific, the largest measure up to 14 mm in size. Recommend dedicated liver mass protocol CT or MR for further evaluation. IMPRESSION: 1. No evidence of pulmonary embolism or thoracic aorta aneurysm or dissection. 2. No acute lung disease is identified. 3. There are advanced chronic just in the lung swenson. 4. There are multiple small enhancing lesions in the liver, which are nonspecific. Dedicated liver mass protocol CT or MRI is suggested for further evaluation. Reviewed, Interpreted and Dictated by Charley Guillory MD Transcribed by Sonali Benavidez Authenticated and . [facility]
--- NOTE | 2025-07-02 14:49 | ECG_ITS ---
APPROVED REPORT Exam: Resting ECG HR:112 bpm ECG Measurements Heart Rate 112 AXES WI 156 P 91 QRSd 72 QRS 95 QT 380 T 79 QTc 446 Conclusion SINUS TACHYCARDIA BORDERLINE RIGHT AXIS DEVIATION [QRS AXIS > 90] NONSPECIFIC T-WAVE ABNORMALITY ABNORMAL RHYTHM ECG UNCONFIRMED REPORT Electronically signed by : Delroy Valadez, 07/02/2025 16:51:21
[2025-07-02 14:53] LABS: Lactate Venous 1.5 mmol/L (0.4-2.0); VBG HCO3 29.0 mmol/L (23-30); VBG PH 7.36 mmol/L (7.31-7.41); VBG PO2 36.9 mmol/L (28-40)
[2025-07-02 14:56] LABS: VBG PCO2 52.2 mmol/L (35-51)
[2025-07-02 14:57] LABS: Hematocrit 40.5 % (37.0-47.0); Hemoglobin 12.8 g/dL (12.2-16.2); Immature Granulocytes % 0.8 %; Mean Corpuscular HGB Conc 31.6 g/dL (31.8-35.4); Mean Corpuscular Hemoglobin 27.6 pg (27.0-31.2); Mean Corpuscular Volume 87.3 fl (81-99); Nucleated Red Blood Cells % 0 %; Platelet Count 264 K/mm3 (142-424); Red Blood Count 4.64 M/mm3 (4.20-5.40); Red Cell Distribution Width-SD 42.9 fL; White Blood Count 27.7 K/mm3 (4.8-10.8)
[2025-07-02 15:02] LABS: Coronavirus 19, PCR Not Detected (NotDetected); Influenza A, PCR Not Detected (NotDetected); Influenza B, PCR Not Detected (NotDetected)
[2025-07-02] MEDS: MAGNESIUM SULFATE IN WATER 2 GM/50 ML PIGGYBACK IV (15:03)
[2025-07-02] MEDS: DEXAMETHASONE 4MG/ML 1ML VIAL 8 MG IV (15:03)
[2025-07-02 15:04] LABS: INR 1.10 (0.9-1.1); Prothrombin Time 12.1 seconds (10.1-12.5)
[2025-07-02] MEDS: IPRATROPIUM/ALBUTEROL 3 ML NEB 9 ML IH (15:04)
[2025-07-02] MEDS: RINGERS SOLUTION,LACTATED 500 ML 250 ML IV (15:05)
[2025-07-02 15:06] LABS: Alanine Aminotransferase 23 U/L (12-78); Albumin Level 4.6 g/dl (3.5-5.0); Albumin/Globulin Ratio 1.5 (1.1-1.8); Alkaline Phosphatase 96 U/L (38-126); Anion Gap 11.2 mEq/L (5-15); Aspartate Amino Transferase 33 U/L (14-36); Bilirubin,Total 0.6 mg/dl (0.2-1.3); Blood Urea Nitrogen 14 mg/dl (7-17); Calcium 9.6 mg/dl (8.4-10.2); Carbon Dioxide 31 mmol/L (22.0-30.0); Chloride 92 mmol/L (98-107); Creatine Kinase 50 U/L (30-135); Creatinine Clearance Estimated 64 mL/min (50-200); Creatinine,Serum 0.70 mg/dl (0.52-1.04); Estimated Glomerular Filt Rate 87 ml/min (>60); GFR (African American) 105 ML/MIN (>60); Globulin 3.1 g/dL (1.3-3.2); Glucose 103 mg/dl (74-100); Potassium 4.2 mmoL/L (3.5-5.1); Sodium 130 mmol/L (136-145); Total Protein,Serum 7.7 g/dl (6.3-8.2)
[2025-07-02 15:07] LABS: ABG HCO3 28.2 mmhg (22.0-26.0); ABG PCO2 44.1 mmhg (35.0-45.0); ABG PH 7.42 mmol/L (7.35-7.45); ABG PO2 70.8 mmhg (80-100); ABG TCO2 29.5 mmhg (23-27)
[2025-07-02 15:10] LABS: Source Left Radial
[2025-07-02 15:10] LABS: Activated Partial Thrombo Time 31.0 seconds (22.8-30.6)
[2025-07-02 15:12] LABS: C-Reactive Protein 190.0 mg/L (0-4)
[2025-07-02 15:44] LABS: Anisocytosis 1+; Macrocytosis 1+; Microcytosis 1+; Ovalocytes 1+; Poikilocytosis 1+; Polychromasia 1+; Target Cells 1+; Tear Drop Cells 1+; Total Cells Counted 100
--- NOTE | 2025-07-02 15:44 | ED_ITS ---
<Statement entered by Delroy Valadez MD - 07/03/25 08:31> I independently examined this patient. 54yoF PMH lung and liver ca(not on active tx), COPD on 3LNC at home. presenting for c/f shingles on her scalp and worsening dyspnea. On my exam, there are superficial and partial thickness hayward on her scalp with sloughing of skin consistent with hayward from the hot oil used to treat pt's pain at home. I am unable to appreciate any underlying rash, therefore have withheld any antivirals. we will apply bacitracin to the scalp to aid in healing of hayward. 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 after getting settled in the stretcher, she is satting in low 90s on her home 3LNC. i interpreted the ABG to demonstrate a compensated respiratory acidosis. Pt is critically ill. she is tachycardic as well. high suspicion for sepsis. her perfusion on initial assessment is poor. beginning gentle creystalloid resus, withholding full 30cc/kg given history of chf and respiratory issues today. broad spectrum abx w vanc/zosyn begun promptly. CTPE study ordered, w final ready pending admission. No PE on my examination. possible RUL PNA vs mass vs bleb, that could be the infectious source, but further workup inpt is needed. Duonebs/steroids/RT eval for COPD flare. I had lengthy discussion with pt (who is AO4 and GCS15) and mom at bedside. I am concerned about her clinical course. I discussed code status given her guarded prognosis given her significant comorbidities. Pt is adamant at this time that she would like everything done and is OK with CPR and a breathing tube. She will remain full code at this time. Critical care time 37 minutes for frequent reassessments, blood gas interpretation, patient discussions, multiple duoneb treatments, sepsis, high likelihood of decline. I was consulted by the AISAH, and we discussed the complexity of problems being addressed. I approved the treatment and management plan for this patient's care in the emergency department, thus performing a substantial portion of the medical decision making. Delroy Valaedz MD Discharge Plan Disposition Patient Disposition: Admitted Prescriptions Prescriptions: No Action levetiracetam 1,000 mg tablet 1,000 mg PO BID ferrous sulfate 325 mg (65 mg iron) tablet 325 mg PO DAILY Qty: 90 3RF rosuvastatin [Crestor] 20 mg tablet 20 mg PO DAILY Qty: 30 5RF aspirin [Adult Low Dose Aspirin] 81 mg tablet,delayed release (DR/EC) 81 mg PO DAILY Qty: 30 5RF furosemide 40 mg tablet 40 mg PO DAILY Qty: 30 5RF pramipexole 1 mg tablet 1 mg PO DAILY ipratropium-albuterol 0.5 mg-3 mg(2.5 mg base)/3 mL solution for nebulization 3 ml inhalation Q6H PRN (Reason: shortness of breath or wheezing) Qty: 180 6RF albuterol sulfate [Ventolin HFA] 90 mcg/actuation HFA aerosol inhaler 2 puff inhalation Q6H PRN (Reason: shortness of breath or wheezing) Qty: 8.5 3RF budesonide-formoterol [Symbicort] 160-4.5 mcg/actuation HFA aerosol inhaler 2 puff inhalation BID Qty: 10.2 3RF tiotropium bromide [Spiriva with HandiHaler] 18 mcg capsule, w/inhalation device 1 cap inhalation DAILY 90 Days Qty: 90 3RF Rx Instructions: puncture 1 cap using device; one dose = 2 inhalations Eliquis 5 mg tablet 5 mg PO BID Qty: 180 3RF baclofen 10 mg tablet 10 mg PO TID Qty: 90 2RF metoprolol succinate 25 mg tablet extended release 24 hr 25 mg PO DAILY Qty: 30 5RF ergocalciferol (vitamin D2) [Vitamin D2] 1,250 mcg (50,000 unit) capsule 1,250 mcg PO WEEKLY ropinirole 1 mg tablet 1 mg PO HS isosorbide dinitrate 10 mg Tablet 10 mg PO TID 30 Days Qty: 90 0RF Referrals Follow up/Referrals: José Liriano APRN [Primary Care Provider, Family Practice] - See instructions Clinical Impressions Clinical Impression: Sepsis Print Language Print Language: Burkinan Discharge ED Provider: Delroy Valadez <She Cordova (ED), VP RESP[facility]ATORY - Last Filed: 07/02/25 19:42> General Chief Complaint: Shortness of Breath/Dyspnea Stated Complaint: eyes swelling, shingles on scalp and back Time Seen by Provider: 07/02/25 14:37 Mode of Arrival: Family Vehicle Source of Information: Patient, Relative and Medical Record Description of Symptoms (Recalled from ER Triage Doc. by RN): Pt c/o suspected shingles to face, scalp, and back that began approx 1 wk ago. She has tried hot oil, tea tree oil, and murillo to her scalp wo relief. States she had shingles previously and this feels the same. She also reports dyspnea and SOA. She wears 3LPM NC all the time for COPD and lunch cancer. States she has liver and luncg cancer and sees Dr Ruiz but does not do any chemo or radiation. Initial sat 84% on 3L and duskiness noted to lips and fingers. Labored breathing noted. History of Present Illness HPI narrative: 54-year-old female presents to the ED today for complaint of a rash to her scalp and back. She says this began a week ago. She has tried hot oil, tea tree oil and mayonnaise to her scalp with no relief. She says her sister heated up the oil and poured it down her scalp. She says it feels like it is burning. She has had shingles previously and she says this feels the same. Her O2 is 84% on 3 L with perioral cyanosis and cyanosis to the fingers. Labored breathing is noted in nursing note and patient is very dusky. Patient does have liver and lung cancer but she is not doing chemo or radiation Related Data Home Medications ?Medication ?Instructions ?Recorded ?Confirmed levetiracetam 1,000 mg tablet 1,000 mg PO BID 09/26/22 06/10/25 ergocalciferol (vitamin D2) 1,250 1,250 mcg PO WEEKLY 12/02/24 06/10/25 mcg (50,000 unit) capsule (Vitamin D2) ropinirole 1 mg tablet 1 mg PO HS 12/02/24 06/10/25 pramipexole 1 mg tablet 1 mg PO DAILY 12/23/2406/10 Previous Rx's ?Medication ?Instructions ?Recorded isosorbide dinitrate 10 mg tablet 10 mg PO TID 30 days #90 tabs 12/04/24 furosemide 40 mg tablet 40 mg PO DAILY #30 tabs 11/21 ferrous sulfate 325 mg (65 mg 325 mg PO DAILY #90 tabs 12/26/24 iron) tablet apixaban 5 mg tablet (Eliquis) 5 mg PO BID #180 tabs 0 01/06/25 Held on 03/19/25. Instructions: Resume on 03/20/25. aspirin 81 mg tablet,delayed 81 mg PO DAILY #30 tabs 0 03/05/25 release (Adult Low Dose Aspirin) rosuvastatin 20 mg tablet (Crestor) 20 mg PO DAILY #30 tabs 03/05/25 baclofen 10 mg tablet 10 mg PO TID #90 tabs albuterol sulfate 90 mcg/actuation 2 puff inhalation Q 6H PRN 06/05/25 aerosol inhaler (Ventolin HFA) shortness of breath or wheezing #8.5 grams budesonide-formoterol HFA 160 2 puff inhalation BID sh ortness of 06/05/25 mcg-4.5 mcg/actuation aerosol breath or wheezing #10.2 grams inhaler (Symbicort) ipratropium 0.5 mg-albuterol 3 mg 3 ml inhalation Q6H PRN shortness 06/05/25 (2.5 mg base)/3 mL nebulization of breath or wheezing #180 mL soln tiotropium bromide 18 mcg capsule 1 cap inhalation ALAINA LY 90 days #90 06/05/25 with inhalation device (Spiriva caplets with HandiHaler) metoprolol succinate 25 mg 25 mg PO DAILY #30 tabs tablet,extended release 24 hr Allergies Allergy/AdvReac Type Severity Reaction Status Date / Time No Known Allergies Allergy Verified 06/10/25 10:59 [facility] <She Cordova (ED), VP RESPIRATORY - Last Filed: 07/02/25 19:42> [facility] Disclaimer: The information contained in this section may have been updated after the patient was seen, as this information can be updated by other users. Medical History Epileptic seizure Surgical History History of hysterectomy Family History Other Asthma COPD (chronic obstructive pulmonary disease) Hypertension Social History Smoking Status: Current every day smoker alcohol intake: never substance use type: denies use current occupational status: other Travel in the last 8 weeks?: None housing: other caffeine: Yes Have you lived/traveled outside [place] in past 30 days?: No Contact w/someone who lives/traveled outside US past 30 days?: No Exposure to someone with infectious disease in past 14 days?: No Do you have a fever (greater than 100.4 F or 38 C)?: No Have you tested positive for COVID-19?: No Exposed to someone with COVID-19 in past 14 days?: No Do you have a sore throat?: No Do you have a cough?: No Do you have any weakness?: No Do you have any diarrhea?: No Are you experiencing any unusual bleeding?: No Do you have any muscle aches/pain?: No Do you have any abdominal pain?: No Are you experiencing loss of taste or smell?: No Other Medical History Have you received the Flu Vaccine for this season: No Have you received the Pneumonia Vaccine: No <She Cordova (ED), VP RESP[facility]ATORY - Last Filed: 07/02/25 19:42> ROS Obtained: Yes Systems reviewed as appropriate & no additional complaints except as documented Constitutional Constitutional: Reports as per HPI Physical Exam <Seh Cordova (ED), VP RESPIRATORY - Last Filed: 07/02/25 19:42> General General appearance: alert and in distress Head Head exam: other (Scalp is erythematous with rash that appears to be excoriated) Eye Eye exam: Present normal appearance, PERRL and EOMI ENT ENT exam: Present normal oropharynx and mucous membranes moist Neck Neck exam: Present full ROM and trachea midline Respiratory Respiratory exam: Present respiratory distress, wheezes and accessory muscle use Cardiovascular Cardiovascular exam: Present normal rhythm, tachycardia, normal heart sounds, +S1 and +S2 Abdominal Exam Abdominal exam: Present soft and normal bowel sounds Extremities Exam Extremities exam: Present cyanosis Neurological Exam Neurological exam: Present alert and oriented X3 Skin Skin exam: Present warm, dry and cyanosis HEART Score <She Cordova (ED), VP RESPIRATORY - Last Filed: 07/02/25 19:42> HEART Score HEART Score assessment performed?: Yes History (anamnesis): Moderately suspicious ECG: Normal Age: 45-65 years Risk factors: 1-2 risk factors Troponin: </= normal limit HEART Score: 3 Critical Care <She Cordova (ED), VP RESPIRATORY - Last Filed: 07/02/25 19:42> Critical Care Time Critical Care Time: No Medical Decision Making <She Cordova (ED), VP RESPIRATORY - Last Filed: 07/02/25 19:42> Payam Inquiry Pt receiving controlled substance: No Payam was queried for this patient: No Vital Signs Vital Signs: 07/02/25 14:23 07/02/25 14:45 07/02/25 15:00 Temperature 98.5 F Temperature Source Oral Pulse Rate 116 H 100 H Pulse Rate [Right] 122 H Respiratory Rate 25 H 20 16 Blood Pressure Blood Pressure [Right Arm] 122/80 Blood Pressure Mean Blood Pressure Mean [Right Arm] 94 Blood Pressure Source [Right Arm] Automatic Cuff 02 Sat by Pulse Oximetry 84 L 98 98 Oxygen Delivery Method Nasal Cannula Oxygen Flow Rate (LPM) 3 07/02/25 15:00 07/02/25 15:30 07/02/25 15:45 Temperature Temperature Source Pulse Rate 107 H 109 H 112 H Pulse Rate [Right] Respiratory Rate 15 16 17 Blood Pressure 128/77 120/69 Blood Pressure [Right Arm] Blood Pressure Mean 95 Blood Pressure Mean [Right Arm] Blood Pressure Source [Right Arm] 02 Sat by Pulse Oximetry 97 98 98 Oxygen Delivery Method Oxygen Flow Rate (LPM) 07/02/25 15:50 07/02/25 16:00 07/02/25 16:30 Temperature Temperature Source Pulse Rate 111 H 108 H 111 H Pulse Rate [Right] Respiratory Rate 17 18 19 Blood Pressure 112/65 114/66 124/69 Blood Pressure [Right Arm] Blood Pressure Mean Blood Pressure Mean [Right Arm] Blood Pressure Source [Right Arm] 02 Sat by Pulse Oximetry 98 97 97 Oxygen Delivery Method Nasal Cannula Nasal Cannula Nasal Cannula Oxygen Flow Rate (LPM) 3 3 3 07/02/25 17:00 07/02/25 18:00 07/02/25 19:30 Temperature Temperature Source Pulse Rate 104 H 110 H Pulse Rate [Right] Respiratory Rate 22 15 Blood Pressure 118/59 L 112/61 Blood Pressure [Right Arm] Blood Pressure Mean Blood Pressure Mean [Right Arm] Blood Pressure Source [Right Arm] 02 Sat by Pulse Oximetry 94 L 94 L 98 Oxygen Delivery Method Nasal Cannula Nasal Cannula Room Air Oxygen Flow Rate (LPM) 3 3 Lab Data Labs: Lab Results 07/02/25 14:39: WBC 27.7 H*, RBC 4.64, Hgb 12.8, Hct 40.5, MCV 87.3, MCH 27.6, M CHC 31.6 L, RDW 13.4, Plt Count 264, MPV 10.1, Neut % (Auto) 83.3 H, Lymph % (Auto) 6.3 L, [place] % (Auto) 8.4, Eos % (Auto) 0.8, Baso % (Auto) 0.4, Neut # (Auto) 23.2 H, Lymph # (Auto) 1.7, [place] # (Auto) 2.3 H, Eos # (Auto) 0.2, Baso # (Auto) 0.1, Total Counted 100, Neutrophils % (Manual) 80 H, Lymphocytes % (Manual) 7 L, Monocytes % (Manual) 9, Eosinophils % (Manual) 2, Basophils % (Manual) 2.0 H, Platelet Estimate Normal, Giant Platelets 1+, Polychromasia 1+, Poikilocytosis 1+, Anisocytosis 1+, Microcytosis 1+, Macrocytosis 1+, Target Cells 1+, Tear Drop Cells 1+, Ovalocytes 1+, Elliptocytes 1+, ESR 43 H, PT 12.1, INR 1.10, APTT 31.0 H, VBG pH 7.36, VBG pCO2 52.2 H, VBG pO2 36.9, VBG HCO3 29.0, VBG Total CO2 30.6 H, VBG O2 Saturation 73.1 H, VBG Base Excess 3.6 H, VBG Lactic Acid 1.5, Sodium 130 L, Potassium 4.2, Chloride 92 L, Carbon Dioxide 31 H , Anion Gap 11.2, BUN 14, Creatinine 0.70, Estimated Creat Clear 64, Estimated GFR 87, Est GFR ( Amer) 105, Glucose 103 H, Lactate 1.1, Calcium 9.6, Total Bilirubin 0.6, AST 33, ALT 23, Alkaline Phosphatase 96, Total Creatine Kinase 50, Troponin I < 0.01, C-Reactive Protein 190.0 H, NT-Pro-B Natriuret Pep 105, Total Protein 7.7, Albumin 4.6, Globulin 3.1, Albumin/Globulin Ratio 1.5 07/02/25 14:56: SARS-CoV-2 (PCR) Not detected, Influenza A Untype (PCR) Not detected, Influenza Type B (PCR) Not detected 07/02/25 15:05: Specimen Source Left radial, O2 % 3 lpm, ABG pH 7.42, ABG pCO2 44.1, ABG pO2 70.8 L, ABG HCO3 28.2 H, ABG Total CO2 29.5 H, ABG O2 Saturation 95, ABG Base Excess 3.7 H, Tong Test acceptable 07/02/25 16:29: Urine Color Yellow, Urine Appearance Clear, Urine pH 7.0, Ur Specific [place] 1.010, Urine Protein Negative, Urine Glucose (UA) Negative, Urine Ketones Negative, Urine Blood 1+ A, Urine Nitrate Negative, Urine Bilirubin Negative, Urine Urobilinogen 0.2, Ur Leukocyte Esterase Negative, Urine RBC 10-20, Urine WBC Occasional, Ur Squamous Epith Cells Occasional 07/02/25 14:39 07/02/25 14:39 Response Orders (Tests/Meds): ED MEDICATIONS Generic Name Dose Route Start Last Admin Trade Name Freq PRN Reason Stop Dose Admin Piperacillin Sod/Tazobactam 100 mls @ 200 mls/hr 07/02/25 15:15 07/02/25 16:22 Sod 4.5 gm/ Sodium Chloride IV 07/12/25 15:14 Infused Q8H SUZY Infusion Discontinued Medications Generic Name Dose Route Start Last Admin Trade Name Freq PRN Reason Stop Dose Admin Albuterol/Ipratropium 9 ml 07/02/25 14:54 07/02/25 15:04 Ipratropium/Albuterol 3 Ml Neb IH 07/02/25 14:55 9 ml ONCE ONE Administration Dexamethasone Sodium Phosphate 8 mg 07/02/25 14:54 07/02/25 15:03 Dexamethasone 4mg/Ml 1ml Vial IV 07/02/25 14:55 8 mg ONCE ONE Administration Lactated Ringer's 500 mls @ 250 mls/hr 07/02/25 14:54 07/02/25 17:55 Lactated Ringer's 500ml IV 07/02/25 16:53 Infused .Q2H ONE Infusion Magnesium Sulfate 2 gm in 50 mls @ 50 mls/hr 07/02/25 14:54 07/02/25 16:04 Magnesium Sulfate 2gm/50ml Premix IV 07/02/25 15:53 Infused ONCE ONE Infusion Vancomycin HCl 750 mg/ Sodium 250 mls @ 125 mls/hr 07/02/25 15:15 07/02/25 19:27 Chloride IV 07/02/25 17:14 Infused ONCE ONE Infusion Sodium Chloride 1,000 mls @ 999 mls/hr 07/02/25 16:29 07/02/25 17:56 Sod Chlor 0.9% 1000ml Bag IV 07/02/25 17:29 Infused .Q1H1M ONE Infusion Iopamidol 70 ml 07/02/25 16:10 07/02/25 16:11 Iopamidol-370 (76%);100ml Bottle IV 07/02/25 16:11 70 ml ONCE ONE Administration Iopamidol 75 ml 07/02/25 17:30 07/02/25 17:31 Iopamidol-370 (76%);100ml Bottle IV 07/02/25 17:31 75 ml ONCE ONE Administration Miscellaneous 1 each 07/02/25 15:15 Vancomycin Consult Request NOTAPPLIC 08/01/25 15:14 CONSULT PHARMACY SUZY Sodium Chloride 50 ml 07/02/25 16:10 07/02/25 16:11 0.9 % Sodium Chloride 50 Ml Vial IV 07/02/25 16:11 50 ml ONCE ONE Administration Sodium Chloride 10 ml 07/02/25 16:10 07/02/25 16:11 Sodium Chloride 0.9% 10ml Syr (Rad Only) IV 07/02/25 16:11 10 ml ONCE ONE Administration Sodium Chloride 10 ml 07/02/25 17:30 07/02/25 17:31 Sodium Chloride 0.9% 10ml Syr (Rad Only) IV 07/02/25 17:31 10 ml ONCE ONE Administration ORDERS Category Date Time Status CT abdomen pelvis w con Stat Cat Scan 07/02/25 17:05 Completed CTA Chest [CT angio chest PE protocol] Stat Cat Scan 07/02/25 14:49 Completed Activated Partial Thrombo Time Stat Lab 07/02/25 14:39 Completed BNP [NT Pro Brain Natriuretic Pep.] Stat Lab 07/02/25 14:39 Completed C-Reactive Protein Stat Lab 07/02/25 14:39 Completed Complete Blood Count Auto Diff Stat Lab 07/02/25 14:39 Completed Comprehensive Metabolic Panel Stat Lab 07/02/25 14:39 Completed Creatine Kinase Stat Lab 07/02/25 14:39 Completed Erythrocyte Sedimentation Rate Stat Lab 07/02/25 14:39 Completed Lactic Acid Stat Lab 07/02/25 14:39 Completed Prothrombin Time INR Stat Lab 07/02/25 14:39 Completed Rapid PCR Covid and Flu A/B Stat Lab 07/02/25 14:56 Completed Trop I [Troponin I] Stat Lab 07/02/25 14:39 Completed Troponin I Q3H Lab 07/02/25 18:21 Received Troponin I Q3H Lab 07/02/25 21:30 Ordered UA [Urinalysis and Microscopic] Stat Lab 07/02/25 16:29 Completed Blood Culture Stat Micro 07/02/25 15:08 Received ABG [Arterial Blood Gas] Stat RT 07/02/25 15:05 Results VBG [Venous Blood Gas] Stat RT 07/02/25 14:39 Completed MDM Narrative Medical Decision Narrative: patient is a 54-year-old female presenting to the emergency department for evaluation of shortness of breath, tachypnea, rash to scalp. Patient is tachypneic, tachycardic and in respiratory distress. Differential diagnosis includes respiratory failure, heart failure, COPD, PE, among others. Workup will be conducted with hematologic labs, specific imaging, provocative tests. Initial inventions include crystalloid bolus, analgesics, antibiotics. Initial workup reviewed by ak hematologic labs are remarkable for White blood cell count of 27.7, sed rate 43, sodium 130 potassium 4.2 chloride 92 CO2 31 lactate was 1.1 troponin was less than 0.01 CRP was 190, imaging showed nothing necessarily acute on the CT scans. Please see radiology read for full report. I talked to Rosalee who is agreeable to admit patient to stepdown unit. Patient is currently stable but tachycardic. Patient to be admitted. <Delroy Valadez MD - Last Filed: 07/02/25 16:20> Vital Signs Vital Signs: 07/02/25 14:23 07/02/25 14:45 07/02/25 15:00 Temperature 98.5 F Temperature Source Oral Pulse Rate 116 H 100 H Pulse Rate [Right] 122 H Respiratory Rate 25 H 20 16 Blood Pressure Blood Pressure [Right Arm] 122/80 Blood Pressure Mean Blood Pressure Mean [Right Arm] 94 Blood Pressure Source [Right Arm] Automatic Cuff 02 Sat by Pulse Oximetry 84 L 98 98 Oxygen Delivery Method Nasal Cannula Oxygen Flow Rate (LPM) 3 07/02/25 15:00 07/02/25 15:30 07/02/25 15:45 Temperature Temperature Source Pulse Rate 107 H 109 H 112 H Pulse Rate [Right] Respiratory Rate 15 16 17 Blood Pressure 128/77 120/69 Blood Pressure [Right Arm] Blood Pressure Mean 95 Blood Pressure Mean [Right Arm] Blood Pressure Source [Right Arm] 02 Sat by Pulse Oximetry 97 98 98 Oxygen Delivery Method Oxygen Flow Rate (LPM) 07/02/25 15:50 07/02/25 16:00 07/02/25 16:30 Temperature Temperature Source Pulse Rate 111 H 108 H 111 H Pulse Rate [Right] Respiratory Rate 17 18 19 Blood Pressure 112/65 114/66 124/69 Blood Pressure [Right Arm] Blood Pressure Mean Blood Pressure Mean [Right Arm] Blood Pressure Source [Right Arm] 02 Sat by Pulse Oximetry 98 97 97 Oxygen Delivery Method Nasal Cannula Nasal Cannula Nasal Cannula Oxygen Flow Rate (LPM) 3 3 3 07/02/25 17:00 07/02/25 18:00 07/02/25 19:30 Temperature Temperature Source Pulse Rate 104 H 110 H Pulse Rate [Right] Respiratory Rate 22 15 Blood Pressure 118/59 L 112/61 Blood Pressure [Right Arm] Blood Pressure Mean Blood Pressure Mean [Right Arm] Blood Pressure Source [Right Arm] 02 Sat by Pulse Oximetry 94 L 94 L 98 Oxygen Delivery Method Nasal Cannula Nasal Cannula Room Air Oxygen Flow Rate (LPM) 3 3 Lab Data Labs: Lab Results 07/02/25 14:39: WBC 27.7 H*, RBC 4.64, Hgb 12.8, Hct 40.5, MCV 87.3, MCH 27.6, M CHC 31.6 L, RDW 13.4, Plt Count 264, MPV 10.1, Neut % (Auto) 83.3 H, Lymph % (Auto) 6.3 L, [place] % (Auto) 8.4, Eos % (Auto) 0.8, Baso % (Auto) 0.4, Neut # (Auto) 23.2 H, Lymph # (Auto) 1.7, [place] # (Auto) 2.3 H, Eos # (Auto) 0.2, Baso # (Auto) 0.1, Total Counted 100, Neutrophils % (Manual) 80 H, Lymphocytes % (Manual) 7 L, Monocytes % (Manual) 9, Eosinophils % (Manual) 2, Basophils % (Manual) 2.0 H, Platelet Estimate Normal, Giant Platelets 1+, Polychromasia 1+, Poikilocytosis 1+, Anisocytosis 1+, Microcytosis 1+, Macrocytosis 1+, Target Cells 1+, Tear Drop Cells 1+, Ovalocytes 1+, Elliptocytes 1+, ESR 43 H, PT 12.1, INR 1.10, APTT 31.0 H, VBG pH 7.36, VBG pCO2 52.2 H, VBG pO2 36.9, VBG HCO3 29.0, VBG Total CO2 30.6 H, VBG O2 Saturation 73.1 H, VBG Base Excess 3.6 H, VBG Lactic Acid 1.5, Sodium 130 L, Potassium 4.2, Chloride 92 L, Carbon Dioxide 31 H , Anion Gap 11.2, BUN 14, Creatinine 0.70, Estimated Creat Clear 64, Estimated GFR 87, Est GFR ( Amer) 105, Glucose 103 H, Lactate 1.1, Calcium 9.6, Total Bilirubin 0.6, AST 33, ALT 23, Alkaline Phosphatase 96, Total Creatine Kinase 50, Troponin I < 0.01, C-Reactive Protein 190.0 H, NT-Pro-B Natriuret Pep 105, Total Protein 7.7, Albumin 4.6, Globulin 3.1, Albumin/Globulin Ratio 1.5 07/02/25 14:56: SARS-CoV-2 (PCR) Not detected, Influenza A Untype (PCR) Not detected, Influenza Type B (PCR) Not detected 07/02/25 15:05: Specimen Source Left radial, O2 % 3 lpm, ABG pH 7.42, ABG pCO2 44.1, ABG pO2 70.8 L, ABG HCO3 28.2 H, ABG Total CO2 29.5 H, ABG O2 Saturation 95, ABG Base Excess 3.7 H, Tong Test acceptable 07/02/25 16:29: Urine Color Yellow, Urine Appearance Clear, Urine pH 7.0, Ur Specific [place] 1.010, Urine Protein Negative, Urine Glucose (UA) Negative, Urine Ketones Negative, Urine Blood 1+ A, Urine Nitrate Negative, Urine Bilirubin Negative, Urine Urobilinogen 0.2, Ur Leukocyte Esterase Negative, Urine RBC 10-20, Urine WBC Occasional, Ur Squamous Epith Cells Occasional Response Orders (Tests/Meds): ED MEDICATIONS Generic Name Dose Route Start Last Admin Trade Name Ines PRN Reason Stop Dose Admin Piperacillin Sod/Tazobactam 100 mls @ 200 mls/hr 07/02/25 15:15 07/02/25 16:22 Sod 4.5 gm/ Sodium Chloride IV 07/12/25 15:14 Infused Q8H SUZY Infusion Discontinued Medications Generic Name Dose Route Start Last Admin Trade Name Freq PRN Reason Stop Dose Admin Albuterol/Ipratropium 9 ml 07/02/25 14:54 07/02/25 15:04 Ipratropium/Albuterol 3 Ml Neb IH 07/02/25 14:55 9 ml ONCE ONE Administration Dexamethasone Sodium Phosphate 8 mg 07/02/25 14:54 07/02/25 15:03 Dexamethasone 4mg/Ml 1ml Vial IV 07/02/25 14:55 8 mg ONCE ONE Administration Lactated Ringer's 500 mls @ 250 mls/hr 07/02/25 14:54 07/02/25 17:55 Lactated Ringer's 500ml IV 07/02/25 16:53 Infused .Q2H ONE Infusion Magnesium Sulfate 2 gm in 50 mls @ 50 mls/hr 07/02/25 14:54 07/02/25 16:04 Magnesium Sulfate 2gm/50ml Premix IV 07/02/25 15:53 Infused ONCE ONE Infusion Vancomycin HCl 750 mg/ Sodium 250 mls @ 125 mls/hr 07/02/25 15:15 07/02/25 19:27 Chloride IV 07/02/25 17:14 Infused ONCE ONE Infusion Sodium Chloride 1,000 mls @ 999 mls/hr 07/02/25 16:29 07/02/25 17:56 Sod Chlor 0.9% 1000ml Bag IV 07/02/25 17:29 Infused .Q1H1M ONE Infusion Iopamidol 70 ml 07/02/25 16:10 07/02/25 16:11 Iopamidol-370 (76%);100ml Bottle IV 07/02/25 16:11 70 ml ONCE ONE Administration Iopamidol 75 ml 07/02/25 17:30 07/02/25 17:31 Iopamidol-370 (76%);100ml Bottle IV 07/02/25 17:31 75 ml ONCE ONE Administration Miscellaneous 1 each 07/02/25 15:15 Vancomycin Consult Request NOTAPPLIC 08/01/25 15:14 CONSULT PHARMACY [facility] Sodium Chloride 50 ml 07/02/25 16:10 07/02/25 16:11 0.9 % Sodium Chloride 50 Ml Vial IV 07/02/25 16:11 50 ml ONCE ONE Administration Sodium Chloride 10 ml 07/02/25 16:10 07/02/25 16:11 Sodium Chloride 0.9% 10ml Syr (Rad Only) IV 07/02/25 16:11 10 ml ONCE ONE Administration Sodium Chloride 10 ml 07/02/25 17:30 07/02/25 17:31 Sodium Chloride 0.9% 10ml Syr (Rad Only) IV 07/02/25 17:31 10 ml ONCE ONE Administration ORDERS Category Date Time Status CT abdomen pelvis w con Stat Cat Scan 07/02/25 17:05 Completed CTA Chest [CT angio chest PE protocol] Stat Cat Scan 07/02/25 14:49 Completed Activated Partial Thrombo Time Stat Lab 07/02/25 14:39 Completed BNP [NT Pro Brain Natriuretic Pep.] Stat Lab 07/02/25 14:39 Completed C-Reactive Protein Stat Lab 07/02/25 14:39 Completed Complete Blood Count Auto Diff Stat Lab 07/02/25 14:39 Completed Comprehensive Metabolic Panel Stat Lab 07/02/25 14:39 Completed Creatine Kinase Stat Lab 07/02/25 14:39 Completed Erythrocyte Sedimentation Rate Stat Lab 07/02/25 14:39 Completed Lactic Acid Stat Lab 07/02/25 14:39 Completed Prothrombin Time INR Stat Lab 07/02/25 14:39 Completed Rapid PCR Covid and Flu A/B Stat Lab 07/02/25 14:56 Completed Trop I [Troponin I] Stat Lab 07/02/25 14:39 Completed Troponin I Q3H Lab 07/02/25 18:21 Received Troponin I Q3H Lab 07/02/25 21:30 Ordered UA [Urinalysis and Microscopic] Stat Lab 07/02/25 16:29 Completed Blood Culture Stat Micro 07/02/25 15:08 Received ABG [Arterial Blood Gas] Stat RT 07/02/25 15:05 Results VBG [Venous Blood Gas] Stat RT 07/02/25 14:39 Completed ECG Data Tracing #1: ECG Narrative: Independently interpreted by myself demonstrates sinus tachycardia at a rate of 112 with no obvious acute ischemic ST change. Right atrial enlargement. Not acutely actionable
--- NOTE | 2025-07-02 15:44 | HMH.ITSTN ---
pt getting breathing treatment. taking to ct when finished
[2025-07-02 15:45] LABS: Giant Platelets 1+
[2025-07-02] MEDS: PIPERACILLIN/TAZO 4.5 GM in 0.9 % SODIUM CHLORIDE 100 ML IV ×2 (15:49→23:02)
[2025-07-02 15:52] LABS: NT Pro Brain Natriuretic Pep. 105 pg/mL (0-125)
[2025-07-02 15:54] LABS: Troponin I < 0.01 ng/ml (0.00-0.034)
[2025-07-02] MEDS: SODIUM CHLORIDE 0.9% 10ML SYR (RAD ONLY) 10 ML IV ×2 (16:11→17:31)
[2025-07-02] MEDS: 0.9 % SODIUM CHLORIDE 50 ML VIAL IV (16:11)
[2025-07-02] MEDS: IOPAMIDOL-370 (76%);100ML BOTTLE 70 ML IV (16:11)
[2025-07-02 16:44] LABS: Microscopic, Urine URINE MICROSCOPIC (MICROSCOPIC)
[2025-07-02] MEDS: 0.9 % SODIUM CHLORIDE 1000ML 1,000 ML 999 ML IV (16:46)
[2025-07-02] MEDS: VANCOMYCIN HCL 750 MG in 0.9 % SODIUM CHLORIDE 250 ML 125 MG IV (16:48)
--- NOTE | 2025-07-02 17:05 | CT_ITS ---
PROCEDURE INFORMATION: Exam: CT Abdomen And Pelvis With Contrast Exam date and time: 07/02/2025 5:26 PM Age: 54 years old Clinical indication: Abdominal pain; Additional info: Abdominal pain, liver findings on prior chest scan TECHNIQUE: Imaging protocol: Computed tomography of the abdomen and pelvis with contrast. Radiation optimization: All CT scans at this facility use at least one of these dose optimization techniques: automated exposure control; mA and/or kV adjustment per patient size (includes targeted exams where dose is matched to clinical indication); or iterative reconstruction. Contrast material: ISOVUE; Contrast volume: 75 ml; Contrast route: IV; COMPARISON: CT ABDOMEN PELVIS W CON 11/19/2024 5:30 PM FINDINGS: Lungs: Moderate emphysematous changes in the partially visualized lung bases, motion limited, with bandlike fibrosis or atelectasis. Heart: Overall heart size is normal. Mild right ventricular dilatation. Diaphragm: Small hiatal hernia. Liver: Granulomatous calcifications in the liver. There are few subcentimeter probable cysts in the right lobe which do not require further evaluation. A 12 x 7 mm enhancing lesion in segment 8 and 2 additional enhancing lesions measuring 7 mm and 6 mm in segment 7, corresponding to the enhancing lesions seen on recent chest CT angiogram. These are indeterminate. Recommend nonemergent multiphasic pre and postcontrast liver MRI for greater specificity. Normal contour. No intrahepatic biliary ductal dilatation. Gallbladder and biliary ducts: Normal. No calcified stones. No ductal dilation. Pancreas: Normal. No inflammatory changes or ductal dilation. Spleen: Granulomatous calcifications in the spleen without acute splenic abnormality. Adrenal glands: Normal. No adrenal mass. Kidneys and ureters: Mild bilateral symmetrical perinephric stranding, nonspecific, possibly mild perirenal edema or fibrosis. No hydronephrosis or hydroureter. No urinary tract stones are identified. Small bilateral renal cortical cysts which do not require further evaluation. Stomach and bowel: The stomach is largely contracted. Small bowel is nondilated. Question slightly excessive fluid content and mucosal enhancement in portions of the small bowel which might indicate mild changes of gastroenteritis or ileus. No evidence of obstruction or perforation. No acute colonic abnormalities. Distal colon is largely contracted. Appendix: The appendix is normal in caliber and demonstrates no evidence of appendicitis. Intraperitoneal space: No peritoneal free fluid or air. Vasculature: No acute vascular abnormalities. Moderate calcific atherosclerosis. Lymph nodes: No adenopathy. Urinary bladder: Urinary bladder is moderately distended with excreted contrast. Mild bladder trabeculation along the right posterolateral distribution Reproductive: Prior hysterectomy. Bones/joints: No acute osseous abnormalities. Soft tissues: Small midline epigastric fatty anterior abdominal wall hernia is mildly increased in size from 11/19/2024. No associated bowel herniation. There is mild stranding in the herniated fat, correlate clinically to exclude evidence of strangulated fatty hernia. 10 mm chronic metallic foreign body in the lateral right gluteus sandy musculature again noted. IMPRESSION: 1. No definite acute process. 2. Questionable mild small bowel changes of gastroenteritis or ileus. No evidence of bowel obstruction or perforation. 3. Midline epigastric fatty hernia is slightly increased in size from 11/19/2024. No bowel herniation. Mild stranding in the herniated fat, correlate clinically to exclude evidence of strangulated fatty hernia. 4. The 3 enhancing hepatic lesion seen on recent chest CT angiogram again demonstrate enhancement on the current slightly later arterial phase. They remain indeterminate. Recommend nonemergent multiphasic pre and postcontrast liver MRI for further evaluation. 5. Additional nonemergent findings detailed above. COMMENTS: Consistent with the [employer]'s Incidental Findings Committee white paper (J Am Gurpreet Radiol 2018): Any incidental renal lesion less than 1 cm or classified as too small to characterize, or any incidental cystic renal lesion characterized as simple-appearing, is likely benign. No follow-up imaging is recommended for these lesions per consensus recommendations based on imaging criteria.
[2025-07-02 17:28] LABS: Bilirubin,Urine Negative (Negative); Color,Urine YELLOW (Yellow); Glucose,Urine (UA) Negative (Negative); Ketones,Urine Negative (Negative); Leukocyte Esterase,Urine Negative (Negative); PH,Urine 7.0 (5.0-8.5); Protein,Urine Negative (Negative); Specific Gravity, Urine 1.010 (1.005-1.030); Urobilinogen,Urine 0.2 EU/dl (0.2)
[2025-07-02 17:29] LABS: Squamous Epithelial Cell,Urine Occasional #/hpf (0-5); WBC,Urine Occasional #/hpf (0-3)
[2025-07-02] MEDS: IOPAMIDOL-370 (76%);100ML BOTTLE 75 ML IV (17:31)
--- NOTE | 2025-07-02 19:56 | PC.NURSE ---
Report called to Clarissa WADE.
--- NOTE | 2025-07-02 19:57 | PC.NURSE ---
Report taken from ER; no order in to admit patient; notified ER we would be down to get patient when order is placed to admit patient.
[2025-07-02 20:21] LABS: Troponin I < 0.01 ng/ml (0.00-0.034)
--- NOTE | 2025-07-02 21:04 | PC.NURSE ---
pt arrive to ICU via wheelchair from emergency dept at 20:30
[2025-07-02] MEDS: PANTOPRAZOLE 40MG TABLET 40 MG PO (21:38)
--- NOTE | 2025-07-02 21:45 | P.HP_ITS ---
<Statement entered by Jordan Beck MD - 07/03/25 13:11> Rounded on patient after nurse practitioner. Personally examined and interviewed patient. Agree with exam findings and care plan as documented. History of Present Illness *Admission Date: 07/02/25 *Reason for visit:: scalp pain, dyspnea *History of present illness: 54-year-old patient presents to ER with complaints of scalp pain. She states she believes she has shingles on her scalp. She described 1 week of having the sensation that her scalp is on fire. And her scalp was very red. She states this was the same as the last time she had shingles which she was seen and diagnosed by physician according to her. She reports putting mayonnaise, hot oil and tea tree oil on her scalp to help relieve it. She further states that it was then rinsed out in the shower with hot water. She reports the she did not feel the water was so hot that it would cause a burn. She was noted to be in respiratory distress by ER staff. Patient does states she became more short of breath after she took her oxygen off to come into the ER. She states she had her oxygen on in the car and then when she got out of the car she took it off and did not put it back on to walk in. She is on 3 L nasal cannula at baseline. Upon presentation to the ER her sat was 84% on room air. She had circumoral as well as fingertip cyanosis. Patient states if she goes without her oxygen at home she has a similar drop in her O2 sat as well as the cyanotic findings however they report that today it was worse. She has extensive lung history with COPD and bullous emphysema, she also has lung cancer with mets to liver. She sees Dr. Richards but has opted to forego any cancer treatment. She was placed back on oxygen and given nebulizer treatments, IV steroids, magnesium and ultimately given antibiotics after she was found to have an elevated white count. She states she is feeling much better after this treatment. She is back on her baseline of 3 L and the sats are low to mid 90s.White blood cell count was 27.7. Renal function is within normal limits, troponin is negative as well as BNP. CRP is 190 and sed rate is 43. Urinalysis is negative except for 1+ blood. She is negative for COVID, influenza A and B. CT chest shows no evidence of pulmonary embolism, severe emphysema changes with bullous disease in the right lung apex these appear stable. No infiltrate is identified. CT abdomen and pelvis showed questionable mild small bowel changes of gastroenteritis or ileus with no bowel obstruction or perforation. There is epigastric fatty hernia slightly increased in size without bowel herniation. Mild stranding in the herniated fat. Hepatic lesions are again noted. [facility] Disclaimer: The information contained in this section may have been updated after the patient was seen, as this information can be updated by other users. Medical History (Updated 07/02/25 @ 22:37 by Rosalee Hernández APRN) Liver cancer Lung cancer HTN (hypertension) CAD (coronary artery disease) HLD (hyperlipidemia) COPD (chronic obstructive pulmonary disease) Multiple pulmonary emboli Pulmonary hypertension (HFpEF) heart failure with preserved ejection fraction Epileptic seizure Surgical History History of hysterectomy Family History Other Asthma COPD (chronic obstructive pulmonary disease) Hypertension Social History Smoking Status: Current every day smoker alcohol intake: never substance use type: denies use current occupational status: other Travel in the last 8 weeks?: None housing: other caffeine: Yes Have you lived/traveled outside [place] in past 30 days?: No Contact w/someone who lives/traveled outside US past 30 days?: No Exposure to someone with infectious disease in past 14 days?: No Do you have a fever (greater than 100.4 F or 38 C)?: No Have you tested positive for COVID-19?: No Exposed to someone with COVID-19 in past 14 days?: No Do you have a sore throat?: No Do you have a cough?: No Do you have any weakness?: No Do you have any diarrhea?: No Are you experiencing any unusual bleeding?: No Do you have any muscle aches/pain?: No Do you have any abdominal pain?: No Are you experiencing loss of taste or smell?: No Other Medical History Have you received the Flu Vaccine for this season: No Have you received the Pneumonia Vaccine: No Review of Systems Constitutional Constitutional: Denies body ache(s), Denies chills and Denies fever(s) Eyes Eyes: Reports system reviewed and no additional complaints, except as documented ENT Ears, Nose, Mouth, and Throat: Denies sore throat *Cardiovascular Cardiovascular: Reports chest pain and Reports dyspnea *Respiratory Respiratory: Reports cough, Reports dyspnea and Reports wheezing *Gastrointestinal Gastrointestinal: Denies abdominal pain and Reports loose stools (Reports 1 day of diarrhea 2 to 3 days ago and that has resolved) *Genitourinary Genitourinary: Denies difficulty voiding and Denies dysuria *Musculoskeletal Musculoskeletal: Reports system reviewed and no additional complaints, except as documented *Neurologic Neurologic: Denies abnormal speech and Denies confusion Psychiatric Psychiatric: Denies confusion Allergic/Immunologic Allergic/Immunologic: Reports wheezing Meds Home Medications and Allergies Home Medications ?Medication ?Instructions ?Recorded ?Confirmed ?Type levetiracetam 1,000 mg tablet 1,000 mg PO BID 09/26/22 07/02/25 History ropinirole 1 mg tablet 1 mg PO HS 12/02/24 07/02/25 History pramipexole 1 mg tablet 1 mg PO DAILY 12/23/2407/02 History ferrous sulfate 325 mg (65 mg 325 mg PO DAILY #90 tabs 12/26/24 07/02/25 Rx iron) tablet apixaban 5 mg tablet (Eliquis) 5 mg PO BID #180 tabs 0 01/06/25 07/02/25 Rx Held on 03/19/25. Instructions: Resume on 03/20/25. aspirin 81 mg tablet,delayed 81 mg PO DAILY #30 tabs 0 03/05/25 07/02/25 Rx release (Adult Low Dose Aspirin) rosuvastatin 20 mg tablet (Crestor) 20 mg PO DAILY #30 tabs 03/05/25 07/02/25 Rx baclofen 10 mg tablet 10 mg PO TID #90 tabs 07/02/25 Rx albuterol sulfate 90 mcg/actuation 2 puff inhalation Q 6H PRN 06/05/25 07/02/25 Rx aerosol inhaler (Ventolin HFA) shortness of breath or wheezing #8.5 grams budesonide-formoterol HFA 160 2 puff inhalation BID sh ortness of 06/05/25 07/02/25 Rx mcg-4.5 mcg/actuation aerosol breath or wheezing #10.2 grams inhaler (Symbicort) ipratropium 0.5 mg-albuterol 3 mg 3 ml inhalation Q6H PRN shortness 06/05/25 07/02/25 Rx (2.5 mg base)/3 mL nebulization of breath or wheezing #180 mL soln tiotropium bromide 18 mcg capsule 1 cap inhalation ALAINA LY 90 days #90 06/05/25 07/02/25 Rx with inhalation device (Spiriva caplets with HandiHaler) metoprolol succinate 25 mg 25 mg PO DAILY #30 tabs 07/02/25 Rx tablet,extended release 24 hr New Prescriptions to Start Prescriptions: Allergies Allergy/AdvReac Type Severity Reaction Status Date / Time No Known Allergies Allergy Verified 06/10/25 10:59 Exam Data for Last 24 hours Vital signs and Labs for Last 24 Hours: Temp Pulse Resp BP Pulse Ox O2 Del Method O2 Flow Rate 98.8 F 72 17 99/53 L 96 Nasal Cannula 3 07/02/25 20:52 07/02/25 20:52 07/02/25 20:52 07/02/25 20:52 07/02/25 21:33 07/02/25 21:33 07/02/25 21:33 Laboratory Results - last 24 hr 07/02/25 14:39: WBC 27.7 H*, RBC 4.64, Hgb 12.8, Hct 40.5, MCV 87.3, MCH 27.6, MCHC 31.6 L, RDW 13.4, Plt Count 264, MPV 10.1, Neut % (Auto) 83.3 H, Lymph % (Auto) 6.3 L, [place] % (Auto) 8.4, Eos % (Auto) 0.8, Baso % (Auto) 0.4, Neut # (Auto) 23.2 H, Lymph # (Auto) 1.7, [place] # (Auto) 2.3 H, Eos # (Auto) 0.2, Baso # (Auto) 0.1, Total Counted 100, Neutrophils % (Manual) 80 H, Lymphocytes % (Manual) 7 L, Monocytes % (Manual) 9, Eosinophils % (Manual) 2, Basophils % (Manual) 2.0 H, Platelet Estimate Normal, Giant Platelets 1+, Polychromasia 1+, Poikilocytosis 1+, Anisocytosis 1+, Microcytosis 1+, Macrocytosis 1+, Target Cells 1+, Tear Drop Cells 1+, Ovalocytes 1+, Elliptocytes 1+, ESR 43 H, PT 12.1, INR 1.10, APTT 31.0 H, VBG pH 7.36, VBG pCO2 52.2 H, VBG pO2 36.9, VBG HCO3 29.0, VBG Total CO2 30.6 H, VBG O2 Saturation 73.1 H, VBG Base Excess 3.6 H, VBG Lactic Acid 1.5, Sodium 130 L, Potassium 4.2, Chloride 92 L, Carbon Dioxide 31 H , Anion Gap 11.2, BUN 14, Creatinine 0.70, Estimated Creat Clear 64, Estimated GFR 87, Est GFR ( Amer) 105, Glucose 103 H, Lactate 1.1, Calcium 9.6, Total Bilirubin 0.6, AST 33, ALT 23, Alkaline Phosphatase 96, Total Creatine Kinase 50, Troponin I < 0.01, C-Reactive Protein 190.0 H, NT-Pro-B Natriuret Pep 105, Total Protein 7.7, Albumin 4.6, Globulin 3.1, Albumin/Globulin Ratio 1.5 07/02/25 14:56: SARS-CoV-2 (PCR) Not detected, Influenza A Untype (PCR) Not detected, Influenza Type B (PCR) Not detected 07/02/25 15:05: Specimen Source Left radial, O2 % 3 lpm, ABG pH 7.42, ABG pCO2 44.1, ABG pO2 70.8 L, ABG HCO3 28.2 H, ABG Total CO2 29.5 H, ABG O2 Saturation 95, ABG Base Excess 3.7 H, Tong Test acceptable 07/02/25 16:29: Urine Color Yellow, Urine Appearance Clear, Urine pH 7.0, Ur Specific [place] 1.010, Urine Protein Negative, Urine Glucose (UA) Negative, Urine Ketones Negative, Urine Blood 1+ A, Urine Nitrate Negative, Urine Bilirubin Negative, Urine Urobilinogen 0.2, Ur Leukocyte Esterase Negative, Urine RBC 10-20, Urine WBC Occasional, Ur Squamous Epith Cells Occasional 07/02/25 18:21: Troponin I < 0.01 I & O for Last 24 hours: Intake & Output 1106/30/25 07/01/25 07/02/25 23:59 23:59 23:59 23:59 Intake Total 1900.000 / 190.000 Balance 1899.000 / 1899.000 Weight 44.452 kg Constitutional Constitutional: no acute distress and chronically ill appearing *Routine HEENT Exam Head: Present normocephalic, atraumatic and scalp tenderness (Scalp is painful on the right side where there is redness but no distinct lesions or rashes) Eye: Present PERRL ENT: Present mucous membranes moist and oropharynx clear *Routine Neck Exam Neck: Present supple; Absent lymphadenopathy Comments: Rash noted to the right side posterior neck is red, not raised or blistery *Routine Respiratory Exam Respiratory: Present rhonchi and wheezes *Routine Cardiovascular Exam Cardiovascular: Present RRR, Normal S1 and Normal S2 *Routine Abdominal Exam Abdominal: Present soft and normoactive bowel sounds; Absent tenderness *Routine Rectal Exam Rectal:: deferred *Routine Genitalia Exam Genitalia:: deferred *Routine Extremities Exam Extremities: Present pulses intact; Absent edema *Routine Skin Exam Skin: Present intact, dry, warm and rash (Rash on the posterior right side of the neck is red, not raised or blistery. Right side scalp is red but no definitive rash, blisters or lesions) *Routine Neurological Exam Neurological: Present alert, oriented X3 and moving all extremities Assessment and Plan *Assessment and plan (1) Acute hypoxic respiratory failure: Status: Acute Category: Medical Code(s): J96.01 - Acute respiratory failure with hypoxia (2) SIRS (systemic inflammatory response syndrome): Status: Acute Category: Medical Code(s): R65.10 - Systemic inflammatory response syndrome (SIRS) of non-infectious origin without acute organ dysfunction (3) Acute exacerbation of chronic obstructive pulmonary disease: Status: Acute Category: Medical Code(s): J44.1 - Chronic obstructive pulmonary disease with (acute) exacerbation (4) Rash: Status: Acute Category: Medical Code(s): R21 - Rash and other nonspecific skin eruption (5) (HFpEF) heart failure with preserved ejection fraction: Status: Chronic Category: Medical Code(s): I50.30 - Unspecified diastolic (congestive) heart failure (6) Epileptic seizure: Status: Acute Category: Medical Code(s): G40.909 - Epilepsy, unspecified, not intractable, without status epilepticus (7) Pulmonary hypertension: Status: Acute Category: Medical Code(s): I27.20 - Pulmonary hypertension, unspecified (8) HLD (hyperlipidemia): Status: Acute Qualifiers: Hyperlipidemia type: unspecified Qualified Code(s): E78.5 - Hyperlipidemia, unspecified Category: Medical Code(s): E78.5 - Hyperlipidemia, unspecified (9) CAD (coronary artery disease): Status: Acute Qualifiers: Coronary Disease-Associated Artery/Lesion type: [place] artery [place] vs. transplanted heart: [place] heart Associated angina: with stable angina Qualified Code(s): I25.118 - Atherosclerotic heart disease of [place] coronary artery with other forms of angina pectoris Category: Medical Code(s): I25.10 - Atherosclerotic heart disease of [place] coronary artery without angina pectoris (10) HTN (hypertension): Status: Acute Qualifiers: Hypertension type: essential hypertension Qualified Code(s): I10 - Essential (primary) hypertension Category: Medical Code(s): I10 - Essential (primary) hypertension (11) Lung cancer: Status: Acute Category: Medical Code(s): C34.90 - Malignant neoplasm of unspecified part of unspecified bronchus or lung (12) Liver cancer: Status: Acute Category: Medical Code(s): C22.9 - Malignant neoplasm of liver, not specified as primary or secondary Plan Patient initially came to the ER for complaints of scalp pain that she felt was due to shingles. She was ultimately found to be significantly hypoxic after taking her home O2 off to walk into the ER. O2 sats were 84% with cyanosis around her mouth and in her fingers. She was treated in the ER with breathing treatments, magnesium, IV fluids and antibiotics. The redness on her scalp does not have a typical shingles appearance however she did apply a hot oil and mayonnaise treatment as a home remedy. This may be obscuring the original rash. After discussion with the ER provider I have agreed to except this patient for admission. She will be placed in stepdown. Continue IV antibiotics, breathing treatments, O2 therapy. White blood cell count is significantly elevated however as there is no obvious pneumonia on CT. Urinalysis is normal. There is an abnormal finding on the abdominal CT. It shows small midline epigastric and fatty anterior abdominal wall hernia mildly increased in size from November 2024. There is no associated bowel herniation but there is mild stranding in the herniated fat. Could represent strangulated fatty hernia however patient has no abdominal symptoms at this time. 1 day of diarrhea a few days ago but since then no further diarrhea no nausea no vomiting and no abdominal pain. She has not had fever chills or bodyaches at home. She does meet SIRS criteria so we will continue to treat empirically for acute exacerbation of COPD and respiratory infection. She is on vancomycin and Zosyn. Will also start Valtrex for suspected shingles rash. HFpEF?patient has history of heart failure with preserved EF. Echocardiogram November 2024 shows LVEF of 65 to 70% severe right ventricle dilatation and severe reduction in RV function. Moderate tricuspid regurg. Markedly elevated RVSP at >60. Currently BNP is 105, troponin <0.01. She appears to be euvolemic. Blood pressure is stable but on the low side of normal, will hold off on fluids for now however we may need to give bolus if pressure drops. She received 500 cc of LR in the ER. CAD with chest pain?suspect his chest pain is pleuritic. Serial troponins have been negative. EKG shows sinus tachycardia without ST changes. Lung and liver cancer?patient is aware of lung and liver cancer, follows with Dr. Richards and has opted for no treatment. She does wish to still be a full code. She states she would want her sister to be her healthcare decision-maker however that is not in writing. Case management will see patient and hopefully can help them with developing advanced directives. Epileptic seizures?patient states her last seizure was 2 to 3 months ago. She is on medication for these and that will be continued.
[2025-07-02 22:37] LABS: Troponin I < 0.01 ng/ml (0.00-0.034)
[2025-07-03] VITALS (13 sets, daily range): BP systolic 89–147; BP diastolic 51–80; PULSE 52–110; RESP 18–22; TEMP 36.4–36.8; O2SAT 92–97; BMI 17.8
[2025-07-03] MEDS: IPRATROPIUM/ALBUTEROL 3 ML NEB IH ×4 (00:05→18:56)
--- NOTE | 2025-07-03 02:37 | PC.NURSE ---
mission hospital pharmacy notified of need for vanc dosing
[2025-07-03] MEDS: VANCOMYCIN HCL 750 MG in 0.9 % SODIUM CHLORIDE 250 ML 125 MG IV ×2 (04:33→22:44)
[2025-07-03] MEDS: 0.9 % SODIUM CHLORIDE 1000ML 1,000 ML 100 ML IV (04:35)
[2025-07-03 05:51] LABS: Hematocrit 29.9 % (37.0-47.0); Immature Granulocytes % 1.0 %; Mean Corpuscular HGB Conc 31.8 g/dL (31.8-35.4); Mean Corpuscular Hemoglobin 27.7 pg (27.0-31.2); Mean Corpuscular Volume 87.2 fl (81-99); Nucleated Red Blood Cells % 0 %; Platelet Count 201 K/mm3 (142-424); Red Blood Count 3.43 M/mm3 (4.20-5.40); Red Cell Distribution Width-SD 42.9 fL; White Blood Count 18.6 K/mm3 (4.8-10.8)
[2025-07-03 05:59] LABS: Hemoglobin 9.5 g/dL (12.2-16.2)
[2025-07-03 06:12] LABS: Alanine Aminotransferase 20 U/L (12-78); Albumin Level 3.3 g/dl (3.5-5.0); Albumin/Globulin Ratio 1.4 (1.1-1.8); Alkaline Phosphatase 71 U/L (38-126); Anion Gap 6.8 mEq/L (5-15); Aspartate Amino Transferase 23 U/L (14-36); Bilirubin,Total 0.3 mg/dl (0.2-1.3); Blood Urea Nitrogen 14 mg/dl (7-17); Calcium 8.6 mg/dl (8.4-10.2); Carbon Dioxide 27 mmol/L (22.0-30.0); Chloride 99 mmol/L (98-107); Creatinine Clearance Estimated 74 mL/min (50-200); Creatinine,Serum 0.60 mg/dl (0.52-1.04); Estimated Glomerular Filt Rate 104 ml/min (>60); GFR (African American) 126 ML/MIN (>60); Globulin 2.4 g/dL (1.3-3.2); Glucose 168 mg/dl (74-100); Potassium 3.8 mmoL/L (3.5-5.1); Sodium 129 mmol/L (136-145); Total Protein,Serum 5.7 g/dl (6.3-8.2)
--- NOTE | 2025-07-03 08:10 | P.CONPHA_ITS ---
Pharmacy Consult Date: 07/03/25 Time: 08:11 Referring provider: DR. PENA Reason for Consult:: VANCOMYCIN DOSING Allergies Allergy/AdvReac Type Severity Reaction Status Date / Time No Known Allergies Allergy Verified 06/10/25 10:59 Home Medications ?Medication ?Instructions ?Recorded ?Confirmed ?Type levetiracetam 1,000 mg tablet 1,000 mg PO BID 09/26/22 07/02/25 History ropinirole 1 mg tablet 1 mg PO HS 12/02/24 07/02/25 History pramipexole 1 mg tablet 1 mg PO DAILY 12/23/2407/02 History ferrous sulfate 325 mg (65 mg 325 mg PO DAILY #90 tabs 12/26/24 07/02/25 Rx iron) tablet apixaban 5 mg tablet (Eliquis) 5 mg PO BID #180 tabs 0 01/06/25 07/02/25 Rx Held on 03/19/25. Instructions: Resume on 03/20/25. aspirin 81 mg tablet,delayed 81 mg PO DAILY #30 tabs 0 03/05/25 07/02/25 Rx release (Adult Low Dose Aspirin) rosuvastatin 20 mg tablet (Crestor) 20 mg PO DAILY #30 tabs 03/05/25 07/02/25 Rx baclofen 10 mg tablet 10 mg PO TID #90 tabs 07/02/25 Rx albuterol sulfate 90 mcg/actuation 2 puff inhalation Q 6H PRN 06/05/25 07/02/25 Rx aerosol inhaler (Ventolin HFA) shortness of breath or wheezing #8.5 grams budesonide-formoterol HFA 160 2 puff inhalation BID sh ortness of 06/05/25 07/02/25 Rx mcg-4.5 mcg/actuation aerosol breath or wheezing #10.2 grams inhaler (Symbicort) ipratropium 0.5 mg-albuterol 3 mg 3 ml inhalation Q6H PRN shortness 06/05/25 07/02/25 Rx (2.5 mg base)/3 mL nebulization of breath or wheezing #180 mL soln tiotropium bromide 18 mcg capsule 1 cap inhalation ALAINA LY 90 days #90 06/05/25 07/02/25 Rx with inhalation device (Spiriva caplets with HandiHaler) metoprolol succinate 25 mg 25 mg PO DAILY #30 tabs 07/02/25 Rx tablet,extended release 24 hr New Prescriptions to Start Prescriptions: Height: 1.57 m Weight: 43.953 kg Laboratory Results:: Laboratory Results - last 24 hr 07/02/25 14:39: WBC 27.7 H*, RBC 4.64, Hgb 12.8, Hct 40.5, MCV 87.3, MCH 27.6, MCHC 31.6 L, RDW 13.4, Plt Count 264, MPV 10.1, Neut % (Auto) 83.3 H, Lymph % (Auto) 6.3 L, [place] % (Auto) 8.4, Eos % (Auto) 0.8, Baso % (Auto) 0.4, Neut # (Auto) 23.2 H, Lymph # (Auto) 1.7, [place] # (Auto) 2.3 H, Eos # (Auto) 0.2, Baso # (Auto) 0.1, Total Counted 100, Neutrophils % (Manual) 80 H, Lymphocytes % (Manual) 7 L, Monocytes % (Manual) 9, Eosinophils % (Manual) 2, Basophils % (Manual) 2.0 H, Platelet Estimate Normal, Giant Platelets 1+, Polychromasia 1+, Poikilocytosis 1+, Anisocytosis 1+, Microcytosis 1+, Macrocytosis 1+, Target Cells 1+, Tear Drop Cells 1+, Ovalocytes 1+, Elliptocytes 1+, ESR 43 H, PT 12.1, INR 1.10, APTT 31.0 H, VBG pH 7.36, VBG pCO2 52.2 H, VBG pO2 36.9, VBG HCO3 29.0, VBG Total CO2 30.6 H, VBG O2 Saturation 73.1 H, VBG Base Excess 3.6 H, VBG Lactic Acid 1.5, Sodium 130 L, Potassium 4.2, Chloride 92 L, Carbon Dioxide 31 H , Anion Gap 11.2, BUN 14, Creatinine 0.70, Estimated Creat Clear 64, Estimated GFR 87, Est GFR ( Amer) 105, Glucose 103 H, Lactate 1.1, Calcium 9.6, Total Bilirubin 0.6, AST 33, ALT 23, Alkaline Phosphatase 96, Total Creatine Kinase 50, Troponin I < 0.01, C-Reactive Protein 190.0 H, NT-Pro-B Natriuret Pep 105, Total Protein 7.7, Albumin 4.6, Globulin 3.1, Albumin/Globulin Ratio 1.5 07/02/25 14:56: SARS-CoV-2 (PCR) Not detected, Influenza A Untype (PCR) Not detected, Influenza Type B (PCR) Not detected 07/02/25 15:05: Specimen Source Left radial, O2 % 3 lpm, ABG pH 7.42, ABG pCO2 44.1, ABG pO2 70.8 L, ABG HCO3 28.2 H, ABG Total CO2 29.5 H, ABG O2 Saturation 95, ABG Base Excess 3.7 H, Tong Test acceptable 07/02/25 16:29: Urine Color Yellow, Urine Appearance Clear, Urine pH 7.0, Ur Specific [place] 1.010, Urine Protein Negative, Urine Glucose (UA) Negative, Urine Ketones Negative, Urine Blood 1+ A, Urine Nitrate Negative, Urine Bilirubin Negative, Urine Urobilinogen 0.2, Ur Leukocyte Esterase Negative, Urine RBC 10-20, Urine WBC Occasional, Ur Squamous Epith Cells Occasional 07/02/25 18:21: Troponin I < 0.01 07/02/25 21:55: Troponin I < 0.01 07/03/25 05:32: WBC 18.6 H D, RBC 3.43 L D, Hgb 9.5 L D, Hct 29.9 L, MCV 87.2, MCH 27.7, MCHC 31.8, RDW 13.4, Plt Count 201, MPV 10.2, Neut % (Auto) 91.8 H, Lymph % (Auto) 4.6 L, [place] % (Auto) 2.3, Eos % (Auto) 0.1, Baso % (Auto) 0.2, Neut # (Auto) 17.1 H, Lymph # (Auto) 0.9, [place] # (Auto) 0.4, Eos # (Auto) 0.0, Baso # (Auto) 0.0 07/03/25 05:52: Sodium 129 L, Potassium 3.8, Chloride 99, Carbon Dioxide 27, Anion Gap 6.8, BUN 14, Creatinine 0.60, Estimated Creat Clear 74, Estimated GFR 104, Est GFR ( Amer) 126, Glucose 168 H D, Calcium 8.6, Total Bilirubin 0.3, AST 23 D, ALT 20, Alkaline Phosphatase 71, Total Protein 5.7 L D, Albumin 3.3 L D, Globulin 2.4, Albumin/Globulin Ratio 1.4 Medical History: Medical History (Updated 07/02/25 @ 22:37 by Rosalee Hernández APRN) Liver cancer Lung cancer HTN (hypertension) CAD (coronary artery disease) HLD (hyperlipidemia) COPD (chronic obstructive pulmonary disease) Multiple pulmonary emboli Pulmonary hypertension (HFpEF) heart failure with preserved ejection fraction Epileptic seizure Assessment and Plan Assessment and plan all Dx Assessment and Plan for all problems:: Pharmacokinetic dosing service Objective: Patient: Floor: Age: 54 yo Serum creatinine: 0.60 mg/dL Height: 61.8 Inches Weight (kg): 44 Assessment: IBW (kg): 49.64 Dosing wt(kg): 44 Estimated Creatinine clearance (ml/min): 73.6 CRCL method: Cockcroft and Gault using ibw(default). Drug selected: Vancomycin Loading dose (mg): Vd (liters): 35.2 (factor used: 0.8 L/kg) Luiz (hr-1): 0.065 Half life (hrs): 10.66 CLvanco=?? 2.288 L/hr Recommended dose: 750 mg Interval: 18 hrs Infusion time (hrs): 2.0 Predicted peak (mcg/mL): 29.0 Predicted trough (mcg/mL): 10.25 Total body weight is being used for vancomycin dosing. Recommendations: Give Vancomycin 750 mg q 18 hrs with an expected Cpeak of 29.0 mcg/ml and an expected Ctrough of 10.25 mcg/ml AUC 0-24 /NORMA Data: NORMA 0.5 mcg/mL:?? AUC/NORMA:? 874.1 NORMA 1.0 mcg/mL:?? AUC/NORMA:? 437.1 --------- NORMA 1.5 mcg/mL:?? AUC/NORMA:? 291.4 NORMA 2.0 mcg/mL:?? AUC/NORMA:? 218.5 Thank you for the consult, will continue to follow. -ABDIRAHMAN WADDELL, SPIKED
[2025-07-03] MEDS: PIPERACILLIN/TAZO 4.5 GM in 0.9 % SODIUM CHLORIDE 100 ML IV ×3 (08:40→22:43)
[2025-07-03] MEDS: APIXABAN 5MG TABLET 5 MG PO ×2 (09:24→20:51)
--- NOTE | 2025-07-03 09:43 | HMH.PHAAMS2 ---
- Antimicrobial Stewardship Review culture & sensitivity review Stewardship interventions: culture & sensitivity review (WBC 27.7 TO 18.6 OVERNIGHT. AFEBRILE, BLOOD CX PENDING.)
--- NOTE | 2025-07-03 10:22 | EXP.ACUTE.PN ---
Subjective *Date: 07/03/25 *Time: 14:25 Interval history: Patient stable on 2 L oxygen this morning satting in the low 90s. This is approximately at or better than her baseline oxygen requirement at home. Afebrile. Still complaining of pain on her scalp. Has some itchy eyes bilaterally. States has been having some crusting for the past 2 to 3 days. Most consistent with conjunctivitis. No nausea or vomiting. Otherwise feels well. Medical Exam Vital signs and Labs for Last 24 Hours: Vital Signs Temp Pulse Pulse Resp BP BP Pulse Ox 07/03/25 08:00 97.6 F 77 22 89/55 L 93 L 07/03/25 06:40 07/03/25 06:19 78 07/03/25 06:19 81 07/03/25 06:19 97 07/03/25 06:00 91 H 21 106/63 L 95 07/03/25 05:00 07/03/25 04:00 83 07/03/25 04:00 97.6 F 81 21 99/80 L 92 L 07/03/25 03:00 07/03/25 02:01 92/55 L 07/03/25 02:00 96 07/03/25 02:00 79 18 92/55 L 93 L 07/03/25 01:00 07/03/25 00:07 52 L 07/03/25 00:07 84 07/03/25 00:00 78 07/03/25 00:00 98.2 F 81 18 98/51 L 93 L 07/02/25 23:59 93 L 07/02/25 23:00 07/02/25 22:00 78 17 91/58 L 93 L 07/02/25 21:33 96 07/02/25 21:00 07/02/25 20:52 98.8 F 72 17 99/53 L 07/02/25 20:00 96 07/02/25 20:00 95 H 07/02/25 19:30 98 07/02/25 18:00 110 H 15 112/61 94 L 07/02/25 17:00 104 H 22 118/59 L 94 L 07/02/25 16:30 111 H 19 124/69 97 07/02/25 16:00 108 H 18 114/66 97 07/02/25 15:50 111 H 17 112/65 98 07/02/25 15:45 112 H 17 98 07/02/25 15:30 109 H 16 120/69 98 07/02/25 15:00 107 H 15 128/77 97 07/02/25 15:00 100 H 16 98 07/02/25 14:45 116 H 20 98 07/02/25 14:23 98.5 F 122 H 25 H 122/80 84 L O2 Del Method O2 Flow Rate FiO2 07/03/25 08:00 Nasal Cannula 2 07/03/25 06:40 Nasal Cannula 2 07/03/25 06:19 07/03/25 06:19 07/03/25 06:19 Nasal Cannula 3 07/03/25 06:00 07/03/25 05:00 Nasal Cannula 3 07/03/25 04:00 07/03/25 04:00 07/03/25 03:00 Nasal Cannula 3 07/03/25 02:01 07/03/25 02:00 Nasal Cannula 3 07/03/25 02:00 07/03/25 01:00 Nasal Cannula 3 07/03/25 00:07 07/03/25 00:07 07/03/25 00:00 07/03/25 00:00 07/02/25 23:59 Nasal Cannula 3 32 07/02/25 23:00 Nasal Cannula 3 07/02/25 22:00 07/02/25 21:33 Nasal Cannula 3 07/02/25 21:00 Nasal Cannula 3 07/02/25 20:52 Nasal Cannula 07/02/25 20:00 Nasal Cannula 3 07/02/25 20:00 07/02/25 19:30 Room Air 07/02/25 18:00 Nasal Cannula 3 07/02/25 17:00 Nasal Cannula 3 07/02/25 16:30 Nasal Cannula 3 07/02/25 16:00 Nasal Cannula 3 07/02/25 15:50 Nasal Cannula 3 07/02/25 15:45 07/02/25 15:30 07/02/25 15:00 07/02/25 15:00 07/02/25 14:45 07/02/25 14:23 Nasal Cannula 3 Intake and Output 07/02/25 07/03/25 07/03/25 23:59 07:59 15:59 Intake Total 1816.667 / 2250.000 858 / 958 100 / 958 Output Total 600 / 1200 600 / 1200 Balance 1816.667 / 2250.000 258 / -242 -500 / -242 Intake: Intake, Oral Amount 608 / 608 Intake, Total IV Amount 1816.667 / 2000.000 250 / 350 100 / 350 0.9 % Sodium Chloride 1000ML 1, 1000 / 1000 000 ml @ 999 mls/hr IV .Q1H1M ONE Rx#:[id number] Magnesium Sulfate in Water 2 gm 50 / 50 In 50 ml @ 50 mls/hr IV ONCE ONE Rx#:[id number] Piperacillin/Tazo 4.5 gm In 0.9 200 / 200 100 / 100 % Sodium Chloride 100 ml @ 200 mls/hr IV Q8H SUZY Rx#:[id number] Ringers Solution,Lactated 500 316.667 / 500.000 ml @ 250 mls/hr IV .Q2H ONE Rx# :[id number] Vancomycin HCl 750 mg In 0.9 % 250 / 250 Sodium Chloride 250 ml @ 125 mls/hr IV ONCE ONE Rx#:[id number] Vancomycin HCl 750 mg In 0.9 % 250 / 250 Sodium Chloride 250 ml @ 125 mls/hr IV ONCE ONE Rx#:[id number] Output: Output, Urine Amount 600 / 1200 600 / 1200 Other: Weight 43.953 kg 43.953 kg Patient Weight 07/03/25 23:59 Weight 43.953 kg Laboratory Results - last 24 hr 07/02/25 14:39: WBC 27.7 H*, RBC 4.64, Hgb 12.8, Hct 40.5, MCV 87.3, MCH 27.6, MCHC 31.6 L, RDW 13.4, Plt Count 264, MPV 10.1, Neut % (Auto) 83.3 H, Lymph % (Auto) 6.3 L, [place] % (Auto) 8.4, Eos % (Auto) 0.8, Baso % (Auto) 0.4, Neut # (Auto) 23.2 H, Lymph # (Auto) 1.7, [place] # (Auto) 2.3 H, Eos # (Auto) 0.2, Baso # (Auto) 0.1, Total Counted 100, Neutrophils % (Manual) 80 H, Lymphocytes % (Manual) 7 L, Monocytes % (Manual) 9, Eosinophils % (Manual) 2, Basophils % (Manual) 2.0 H, Platelet Estimate Normal, Giant Platelets 1+, Polychromasia 1+, Poikilocytosis 1+, Anisocytosis 1+, Microcytosis 1+, Macrocytosis 1+, Target Cells 1+, Tear Drop Cells 1+, Ovalocytes 1+, Elliptocytes 1+, ESR 43 H, PT 12.1, INR 1.10, APTT 31.0 H, VBG pH 7.36, VBG pCO2 52.2 H, VBG pO2 36.9, VBG HCO3 29.0, VBG Total CO2 30.6 H, VBG O2 Saturation 73.1 H, VBG Base Excess 3.6 H, VBG Lactic Acid 1.5, Sodium 130 L, Potassium 4.2, Chloride 92 L, Carbon Dioxide 31 H, Anion Gap 11.2, BUN 14, Creatinine 0.70, Estimated Creat Clear 64, Estimated GFR 87, Est GFR ( Amer) 105, Glucose 103 H, Lactate 1.1, Calcium 9.6, Total Bilirubin 0.6, AST 33, ALT 23, Alkaline Phosphatase 96, Total Creatine Kinase 50, Troponin I < 0.01, C-Reactive Protein 190.0 H, NT-Pro-B Natriuret Pep 105, Total Protein 7.7, Albumin 4.6, Globulin 3.1, Albumin/Globulin Ratio 1.5 07/02/25 14:56: SARS-CoV-2 (PCR) Not detected, Influenza A Untype (PCR) Not detected, Influenza Type B (PCR) Not detected 07/02/25 15:05: Specimen Source Left radial, O2 % 3 lpm, ABG pH 7.42, ABG pCO2 44.1, ABG pO2 70.8 L, ABG HCO3 28.2 H, ABG Total CO2 29.5 H, ABG O2 Saturation 95, ABG Base Excess 3.7 H, Tong Test acceptable 07/02/25 16:29: Urine Color Yellow, Urine Appearance Clear, Urine pH 7.0, Ur Specific [place] 1.010, Urine Protein Negative, Urine Glucose (UA) Negative, Urine Ketones Negative, Urine Blood 1+ A, Urine Nitrate Negative, Urine Bilirubin Negative, Urine Urobilinogen 0.2, Ur Leukocyte Esterase Negative, Urine RBC 10-20, Urine WBC Occasional, Ur Squamous Epith Cells Occasional 07/02/25 18:21: Troponin I < 0.01 07/02/25 21:55: Troponin I < 0.01 07/03/25 05:32: WBC 18.6 H D, RBC 3.43 L D, Hgb 9.5 L D, Hct 29.9 L, MCV 87.2, MCH 27.7, MCHC 31.8, RDW 13.4, Plt Count 201, MPV 10.2, Neut % (Auto) 91.8 H, Lymph % (Auto) 4.6 L, [place] % (Auto) 2.3, Eos % (Auto) 0.1, Baso % (Auto) 0.2, Neut # (Auto) 17.1 H, Lymph # (Auto) 0.9, [place] # (Auto) 0.4, Eos # (Auto) 0.0, Baso # (Auto) 0.0 07/03/25 05:52: Sodium 129 L, Potassium 3.8, Chloride 99, Carbon Dioxide 27, Anion Gap 6.8, BUN 14, Creatinine 0.60, Estimated Creat Clear 74, Estimated GFR 104, Est GFR ( Amer) 126, Glucose 168 H D, Calcium 8.6, Total Bilirubin 0.3, AST 23 D, ALT 20, Alkaline Phosphatase 71, Total Protein 5.7 L D, Albumin 3.3 L D, Globulin 2.4, Albumin/Globulin Ratio 1.4 I & O for Labs for Last 24 Hours: Intake & Output 06/30/25 07/01/25 07/02/25 07/03/25 23:59 23:59 23:59 23:59 Intake Total 1999.000 / 2250.000 958 / 958 Output Total 1200 / 1200 Balance 1999.000 / 2250.000 -242 / -242 Weight 44.452 kg 43.953 kg Constitutional: Present mild distress, cachectic, chronically ill appearing and cooperative ENT: Present normal exam Comment:: Erythema along right side of scalp, appears to have a first-degree burn. Bilateral conjunctivitis Respiratory: Present prolonged expiratory phase and rhonchi; Absent wheezes or crackles Cardiac: Present Reg Rate and Rhythm GI: Present soft and normal bowel sounds; Absent distention or tenderness Extremities: Present normal inspection and full ROM Skin: Present intact; Absent erythema Neuro: Present Grossly Intact, alert, awake, oriented x 3 and moves all extremities Assessment and Plan *Assessment and plan (1) Acute hypoxic respiratory failure: Problem Comment: Ruled out, secondary to coming to the ER without oxygen. Currently on baseline oxygen Status: Resolved Category: Medical Code(s): J96.01 - Acute respiratory failure with hypoxia (2) SIRS (systemic inflammatory response syndrome): Status: Acute Category: Medical Code(s): R65.10 - Systemic inflammatory response syndrome (SIRS) of non-infectious origin without acute organ dysfunction (3) Acute exacerbation of chronic obstructive pulmonary disease: Status: Acute Category: Medical Code(s): J44.1 - Chronic obstructive pulmonary disease with (acute) exacerbation (4) Rash: Status: Acute Category: Medical Code(s): R21 - Rash and other nonspecific skin eruption (5) (HFpEF) heart failure with preserved ejection fraction: Status: Chronic Category: Medical Code(s): I50.30 - Unspecified diastolic (congestive) heart failure (6) Epileptic seizure: Status: Acute Category: Medical Code(s): G40.909 - Epilepsy, unspecified, not intractable, without status epilepticus (7) Pulmonary hypertension: Status: Acute Category: Medical Code(s): I27.20 - Pulmonary hypertension, unspecified (8) HLD (hyperlipidemia): Status: Acute Qualifiers: Hyperlipidemia type: unspecified Qualified Code(s): E78.5 - Hyperlipidemia, unspecified Category: Medical Code(s): E78.5 - Hyperlipidemia, unspecified (9) CAD (coronary artery disease): Status: Acute Qualifiers: Associated angina: with stable angina Coronary Disease-Associated Artery/Lesion type: [place] artery [place] vs. transplanted heart: [place] heart Qualified Code(s): I25.118 - Atherosclerotic heart disease of [place] coronary artery with other forms of angina pectoris Category: Medical Code(s): I25.10 - Atherosclerotic heart disease of [place] coronary artery without angina pectoris (10) HTN (hypertension): Status: Acute Qualifiers: Hypertension type: essential hypertension Qualified Code(s): I10 - Essential (primary) hypertension Category: Medical Code(s): I10 - Essential (primary) hypertension (11) Lung cancer: Status: Acute Category: Medical Code(s): C34.90 - Malignant neoplasm of unspecified part of unspecified bronchus or lung (12) Liver cancer: Status: Acute Category: Medical Code(s): C22.9 - Malignant neoplasm of liver, not specified as primary or secondary (13) Conjunctivitis: Status: Acute Category: Medical Code(s): H10.9 - Unspecified conjunctivitis Plan Patient initially came to the ER for complaints of scalp pain that she felt was due to shingles. She was ultimately found to be significantly hypoxic after taking her home O2 off to walk into the ER. O2 sats were 84% with cyanosis around her mouth and in her fingers. She was treated in the ER with breathing treatments, magnesium, IV fluids and antibiotics. The redness on her scalp does not have a typical shingles appearance however she did apply a hot oil and mayonnaise treatment as a home remedy. This may be obscuring the original rash. After discussion with the ER provider I have agreed to except this patient for admission. She will be placed in stepdown. Continue IV antibiotics, breathing treatments, O2 therapy. White blood cell count is significantly elevated however as there is no obvious pneumonia on CT. Urinalysis is normal. There is an abnormal finding on the abdominal CT. It shows small midline epigastric and fatty anterior abdominal wall hernia mildly increased in size from November 2024. There is no associated bowel herniation but there is mild stranding in the herniated fat. Could represent strangulated fatty hernia however patient has no abdominal symptoms at this time. 1 day of diarrhea a few days ago but since then no further diarrhea no nausea no vomiting and no abdominal pain. She has not had fever chills or bodyaches at home. She does meet SIRS criteria so we will continue to treat empirically for acute exacerbation of COPD and respiratory infection. She is on vancomycin and Zosyn. Will also start Valtrex for suspected shingles rash. White count improved to 18.6 this morning. Down from 27.7 on admission. Kidney function normal BUN 14, creatinine 0.6. Repeat CBC, CMP, magnesium ordered for the morning HFpEF?patient has history of heart failure with preserved EF. Echocardiogram November 2024 shows LVEF of 65 to 70% severe right ventricle dilatation and severe reduction in RV function. Moderate tricuspid regurg. Markedly elevated RVSP at >60. Currently BNP is 105, troponin <0.01. She appears to be euvolemic. Blood pressure is stable but on the low side of normal, will hold off on fluids for now however we may need to give bolus if pressure drops. She received 500 cc of LR in the ER. CAD with chest pain?suspect his chest pain is pleuritic. Serial troponins have been negative. EKG shows sinus tachycardia without ST changes. Lung and liver cancer?patient is aware of lung and liver cancer, follows with Dr. Richards and has opted for no treatment. She does wish to still be a full code. She states she would want her sister to be her healthcare decision-maker however that is not in writing. Case management will see patient and hopefully can help them with developing advanced directives. Epileptic seizures?patient states her last seizure was 2 to 3 months ago. She is on medication for these and that will be continued. Conjunctivitis: Initiate Naphcon and ciprofloxacin eyedrops 4 times a day for 5 days. Full code Eliquis 5 mg twice daily Cardiac diet
[2025-07-03] MEDS: TIOTROPIUM 18MCG/PUFF INHALER 1 CAP IH (11:23)
[2025-07-03] MEDS: ASPIRIN EC 81MG TABLET 81 MG PO (11:53)
[2025-07-03] MEDS: BACLOFEN 10MG TABLET 10 MG PO ×2 (12:08→20:50)
[2025-07-03] MEDS: PANTOPRAZOLE 40MG TABLET 40 MG PO (20:51)
[2025-07-03] MEDS: ROPINIROLE 1MG TABLET 1 MG PO (20:51)
[2025-07-03] MEDS: ATORVASTATIN 20MG TABLET 20 MG PO (20:52)
[2025-07-04] VITALS (12 sets, daily range): BP systolic 124–154; BP diastolic 59–90; PULSE 75–130; RESP 18–22; TEMP 36.6–36.9; O2SAT 92–99; BMI 17.4
[2025-07-04] MEDS: IPRATROPIUM/ALBUTEROL 3 ML NEB IH ×5 (00:30→23:28)
[2025-07-04] MEDS: LEVALBUTEROL 1.25MG/3ML NEB 1.25 MG IH (03:49)
--- NOTE | 2025-07-04 03:51 | PC.NURSE ---
patient increased to 3L NC r/t SOA. patient was tachy 115-120's, hospitalist notified - breathing tx per MAR
[2025-07-04] MEDS: TIOTROPIUM 18MCG/PUFF INHALER 1 CAP IH (05:54)
[2025-07-04 06:25] LABS: Hematocrit 27.3 % (37.0-47.0); Immature Granulocytes % 1.0 %; Mean Corpuscular HGB Conc 31.1 g/dL (31.8-35.4); Mean Corpuscular Hemoglobin 27.2 pg (27.0-31.2); Mean Corpuscular Volume 87.2 fl (81-99); Nucleated Red Blood Cells % 0 %; Platelet Count 219 K/mm3 (142-424); Red Blood Count 3.13 M/mm3 (4.20-5.40); Red Cell Distribution Width-SD 42.8 fL; White Blood Count 17.7 K/mm3 (4.8-10.8)
[2025-07-04 06:32] LABS: Hemoglobin 8.6 g/dL (12.2-16.2)
[2025-07-04 06:33] LABS: Alanine Aminotransferase 20 U/L (12-78); Albumin Level 3.2 g/dl (3.5-5.0); Albumin/Globulin Ratio 1.4 (1.1-1.8); Alkaline Phosphatase 131 U/L (38-126); Anion Gap 6.6 mEq/L (5-15); Aspartate Amino Transferase 31 U/L (14-36); Bilirubin,Total 0.2 mg/dl (0.2-1.3); Blood Urea Nitrogen 11 mg/dl (7-17); Calcium 8.5 mg/dl (8.4-10.2); Carbon Dioxide 30 mmol/L (22.0-30.0); Chloride 100 mmol/L (98-107); Creatinine Clearance Estimated 62 mL/min (50-200); Creatinine,Serum 0.70 mg/dl (0.52-1.04); Estimated Glomerular Filt Rate 87 ml/min (>60); GFR (African American) 105 ML/MIN (>60); Globulin 2.3 g/dL (1.3-3.2); Glucose 99 mg/dl (74-100); Magnesium 1.5 mg/dl (1.6-2.3); Potassium 3.6 mmoL/L (3.5-5.1); Sodium 133 mmol/L (136-145); Total Protein,Serum 5.5 g/dl (6.3-8.2)
[2025-07-04] MEDS: BACLOFEN 10MG TABLET 10 MG PO ×3 (07:59→20:00)
[2025-07-04] MEDS: APIXABAN 5MG TABLET 5 MG PO ×2 (07:59→20:00)
[2025-07-04] MEDS: ASPIRIN EC 81MG TABLET 81 MG PO (08:00)
[2025-07-04] MEDS: MAGNESIUM SULFATE IN WATER 2 GM/50 ML PIGGYBACK IV ×2 (08:01→09:01)
[2025-07-04] MEDS: PIPERACILLIN/TAZO 4.5 GM in 0.9 % SODIUM CHLORIDE 100 ML IV ×3 (08:01→19:57)
--- NOTE | 2025-07-04 10:09 | SW/DCPLANNER ---
I provided patient w/ 5 Wishes packet this AM. Patient stated that she prefer to return home and review packet w/ sister prior to completing. I did update patient that she will require witnesses vs being notarized.
[2025-07-04 16:21] LABS: Vancomycin,Trough 8.4 ug/mL (5.0-10.0)
--- NOTE | 2025-07-04 16:22 | EXP.ACUTE.PN ---
Subjective *Date: 07/04/25 *Time: 18:22 Interval history: Feeling somewhat better this morning. Scalp scabbing starting to flake. Has a mild cough. Stable on baseline oxygen of 3 L. Tolerating p.o. intake. Medical Exam Vital signs and Labs for Last 24 Hours: Vital Signs Temp Pulse Pulse Resp BP Pulse Ox O2 Del Method 07/04/25 15:00 Nasal Cannula 07/04/25 13:00 Nasal Cannula 07/04/25 12:13 117 H 07/04/25 12:00 98.4 F 111 H 22 154/90 H 94 L Nasal Cannula 07/04/25 11:00 Nasal Cannula 07/04/25 11:00 119 H 07/04/25 11:00 109 H 07/04/25 11:00 92 L Nasal Cannula 07/04/25 09:00 Nasal Cannula 07/04/25 08:00 118 H 07/04/25 08:00 Nasal Cannula 07/04/25 08:00 98.3 F 114 H 18 130/68 95 Nasal Cannula 07/04/25 06:52 Nasal Cannula 07/04/25 05:55 103 H 07/04/25 05:55 97 H 07/04/25 05:55 99 Nasal Cannula 07/04/25 05:00 Nasal Cannula 07/04/25 04:00 130 H 07/04/25 04:00 98.4 F 108 H 20 124/86 98 07/04/25 03:00 Nasal Cannula 07/04/25 01:00 Nasal Cannula 07/04/25 00:31 110 H 07/04/25 00:31 108 H 07/04/25 00:00 120 H 07/04/25 00:00 98.5 F 111 H 20 135/59 L 95 Nasal Cannula 07/03/25 23:00 Nasal Cannula 07/03/25 21:00 Nasal Cannula 07/03/25 20:00 98.2 F 105 H 19 147/77 H 93 L Room Air 07/03/25 20:00 Nasal Cannula 07/03/25 20:00 110 H 07/03/25 19:00 108 H 07/03/25 19:00 107 H 07/03/25 19:00 97 Nasal Cannula 07/03/25 18:43 Nasal Cannula 07/03/25 16:48 Nasal Cannula O2 Flow Rate 07/04/25 15:00 07/04/25 13:00 11/14/25 12:13 07/04/25 12:00 3 07/04/25 11:00 07/04/25 11:00 07/04/25 11:00 07/04/25 11:00 2 07/04/25 09:00 07/04/25 08:00 07/04/25 08:00 07/04/25 08:00 2 07/04/25 06:52 2 07/04/25 05:55 07/04/25 05:55 07/04/25 05:55 3 07/04/25 05:00 3 07/04/25 04:00 07/04/25 04:00 07/04/25 03:00 3 07/04/25 01:00 2 07/04/25 00:31 07/04/25 00:31 07/04/25 00:00 07/04/25 00:00 07/03/25 23:00 2 07/03/25 21:00 2 07/03/25 20:00 07/03/25 20:00 2 07/03/25 20:00 07/03/25 19:00 07/03/25 19:00 07/03/25 19:00 2 07/03/25 18:43 2 07/03/25 16:48 2 Intake and Output 07/04/25 07/04/25 07/04/25 07:59 15:59 23:59 Intake Total 250 / 1290 1040 / 1290 Output Total 0 / 0 0 / 0 Balance 250 / 1290 1040 / 1290 Intake: Intake, Oral Amount 740 / 740 Intake, Total IV Amount 250 / 550 300 / 550 Magnesium Sulfate in Water 2 gm 100 / 100 In 50 ml @ 50 mls/hr IV Q1H SUZY Rx#:[id number] Piperacillin/Tazo 4.5 gm In 0.9 100 / 100 % Sodium Chloride 100 ml @ 200 mls/hr IV Q6H SUZY Rx#:[id number] Piperacillin/Tazo 4.5 gm In 0.9 100 / 100 % Sodium Chloride 100 ml @ 200 mls/hr IV Q8H SUZY Rx#:[id number] Vancomycin HCl 750 mg In 0.9 % 250 / 250 Sodium Chloride 250 ml @ 125 mls/hr IV Q18H SUZY Rx#:[id number] Output: Output, Urine Amount 0 / 0 0 / 0 Other: Number of Unmeasured Voids 1 1 Weight 43 kg 43 kg Patient Weight 07/04/25 23:59 Weight 43 kg Laboratory Results - last 24 hr 07/04/25 05:15: WBC 17.7 H, RBC 3.13 L, Hgb 8.6 L, Hct 27.3 L, MCV 87.2, MCH 27.2, MCHC 31.1 L, RDW 13.5, Plt Count 219, MPV 10.7 H, Neut % (Auto) 84.0 H, Lymph % (Auto) 7.3 L, [place] % (Auto) 7.4, Eos % (Auto) 0.1, Baso % (Auto) 0.2, Neut # (Auto) 14.9 H, Lymph # (Auto) 1.3, [place] # (Auto) 1.3 H, Eos # (Auto) 0.0, Baso # (Auto) 0.0, Sodium 133 L, Potassium 3.6, Chloride 100, Carbon Dioxide 30, Anion Gap 6.6, BUN 11, Creatinine 0.70, Estimated Creat Clear 62, Estimated GFR 87, Est GFR ( Amer) 105, Glucose 99 D, Calcium 8.5, Magnesium 1.5 L, Total Bilirubin 0.2, AST 31 D, ALT 20, Alkaline Phosphatase 131 H, Total Protein 5.5 L, Albumin 3.2 L, Globulin 2.3, Albumin/Globulin Ratio 1.4 07/04/25 15:25: Vancomycin Trough 8.4 I & O for Labs for Last 24 Hours: Intake & Output 07/01/25 07/02/25 07/03/25 07/04/25 23:59 23:59 23:59 23:59 Intake Total 1999.000 / 2250.000 3120 / 3120 1290 / 1290 Output Total 1700 / 1700 0 / 0 Balance 1999.000 / 2250.000 1420 / 1420 1290 / 1290 Weight 44.452 kg 43.953 kg 43 kg Microbiology Reports for the Last 24 Hours: Microbiology 07/02/25 15:08 Blood Blood Culture - Preliminary NO GROWTH AFTER 48 HOURS 07/02/25 14:39 Blood Blood Culture - Preliminary NO GROWTH AFTER 48 HOURS Constitutional: Present mild distress, cachectic, chronically ill appearing and cooperative ENT: Present normal exam Comment:: Erythema along right side of scalp, appears to have a first-degree burn. Bilateral conjunctivitis Respiratory: Present prolonged expiratory phase and rhonchi; Absent wheezes or crackles Cardiac: Present Reg Rate and Rhythm GI: Present soft and normal bowel sounds; Absent distention or tenderness Extremities: Present normal inspection and full ROM Skin: Present intact; Absent erythema Neuro: Present Grossly Intact, alert, awake, oriented x 3 and moves all extremities Assessment and Plan *Assessment and plan (1) Acute hypoxic respiratory failure: Problem Comment: Ruled out, secondary to coming to the ER without oxygen. Currently on baseline oxygen Status: Resolved Category: Medical Code(s): J96.01 - Acute respiratory failure with hypoxia (2) SIRS (systemic inflammatory response syndrome): Status: Acute Category: Medical Code(s): R65.10 - Systemic inflammatory response syndrome (SIRS) of non-infectious origin without acute organ dysfunction (3) Acute exacerbation of chronic obstructive pulmonary disease: Status: Acute Category: Medical Code(s): J44.1 - Chronic obstructive pulmonary disease with (acute) exacerbation (4) Rash: Status: Acute Category: Medical Code(s): R21 - Rash and other nonspecific skin eruption (5) (HFpEF) heart failure with preserved ejection fraction: Status: Chronic Category: Medical Code(s): I50.30 - Unspecified diastolic (congestive) heart failure (6) Epileptic seizure: Status: Acute Category: Medical Code(s): G40.909 - Epilepsy, unspecified, not intractable, without status epilepticus (7) Pulmonary hypertension: Status: Acute Category: Medical Code(s): I27.20 - Pulmonary hypertension, unspecified (8) HLD (hyperlipidemia): Status: Acute Qualifiers: Hyperlipidemia type: unspecified Qualified Code(s): E78.5 - Hyperlipidemia, unspecified Category: Medical Code(s): E78.5 - Hyperlipidemia, unspecified (9) CAD (coronary artery disease): Status: Acute Qualifiers: Associated angina: with stable angina Coronary Disease-Associated Artery/Lesion type: [place] artery [place] vs. transplanted heart: [place] heart Qualified Code(s): I25.118 - Atherosclerotic heart disease of [place] coronary artery with other forms of angina pectoris Category: Medical Code(s): I25.10 - Atherosclerotic heart disease of [place] coronary artery without angina pectoris (10) HTN (hypertension): Status: Acute Qualifiers: Hypertension type: essential hypertension Qualified Code(s): I10 - Essential (primary) hypertension Category: Medical Code(s): I10 - Essential (primary) hypertension (11) Lung cancer: Status: Acute Category: Medical Code(s): C34.90 - Malignant neoplasm of unspecified part of unspecified bronchus or lung (12) Liver cancer: Status: Acute Category: Medical Code(s): C22.9 - Malignant neoplasm of liver, not specified as primary or secondary (13) Conjunctivitis: Status: Acute Category: Medical Code(s): H10.9 - Unspecified conjunctivitis Plan Patient initially came to the ER for complaints of scalp pain that she felt was due to shingles. She was ultimately found to be significantly hypoxic after taking her home O2 off to walk into the ER. O2 sats were 84% with cyanosis around her mouth and in her fingers. She was treated in the ER with breathing treatments, magnesium, IV fluids and antibiotics. The redness on her scalp does not have a typical shingles appearance however she did apply a hot oil and mayonnaise treatment as a home remedy. This may be obscuring the original rash. After discussion with the ER provider I have agreed to except this patient for admission. She will be placed in stepdown. Continue IV antibiotics, breathing treatments, O2 therapy. White blood cell count is significantly elevated however as there is no obvious pneumonia on CT. Urinalysis is normal. There is an abnormal finding on the abdominal CT. It shows small midline epigastric and fatty anterior abdominal wall hernia mildly increased in size from November 2024. There is no associated bowel herniation but there is mild stranding in the herniated fat. Could represent strangulated fatty hernia however patient has no abdominal symptoms at this time. 1 day of diarrhea a few days ago but since then no further diarrhea no nausea no vomiting and no abdominal pain. She has not had fever chills or bodyaches at home. She does meet SIRS criteria so we will continue to treat empirically for acute exacerbation of COPD and respiratory infection. She is on vancomycin and Zosyn. Will also start Valtrex for suspected shingles rash. If cultures remain negative tomorrow and feeling better, anticipate discontinuing antibiotics and discharging home. Problems addressed as follows: White count still improving today at 17.7, Down from 27.7 on admission. hemoglobin 8.6. Kidney function normal with BUN 11, creatinine 0.7. Magnesium somewhat low at 1.5. Will replace per protocol Repeat CBC, CMP, magnesium ordered for the morning HFpEF?patient has history of heart failure with preserved EF. Echocardiogram November 2024 shows LVEF of 65 to 70% severe right ventricle dilatation and severe reduction in RV function. Moderate tricuspid regurg. Markedly elevated RVSP at >60. Currently BNP is 105, troponin <0.01. She appears to be euvolemic. Blood pressure is stable but on the low side of normal, will hold off on fluids for now however we may need to give bolus if pressure drops. She received 500 cc of LR in the ER. CAD with chest pain?suspect his chest pain is pleuritic. Serial troponins have been negative. EKG shows sinus tachycardia without ST changes. Lung and liver cancer?patient is aware of lung and liver cancer, follows with Dr. Richards and has opted for no treatment. She does wish to still be a full code. She states she would want her sister to be her healthcare decision-maker however that is not in writing. Case management will see patient and hopefully can help them with developing advanced directives. Epileptic seizures?patient states her last seizure was 2 to 3 months ago. She is on medication for these and that will be continued. Conjunctivitis: Initiate Naphcon and ciprofloxacin eyedrops 4 times a day for 5 days. Full code Eliquis 5 mg twice daily Cardiac diet
[2025-07-04] MEDS: VANCOMYCIN HCL 750 MG in 0.9 % SODIUM CHLORIDE 250 ML 125 MG IV (16:40)
[2025-07-04] MEDS: NAPHAZOLINE OP (16:44)
[2025-07-04] MEDS: PHENIRAMINE OP (16:44)
[2025-07-04] MEDS: PHA TO NURSING INSTRUCTION 1 EACH NOTAPPLIC (16:46)
--- NOTE | 2025-07-04 16:47 | PC.NURSE ---
patient is a/ox4, remains on 3LNC with O2 sats above 90%. PRN and SUZY eye drops given per MAR due to irritation. patient ambulates to bathroom independently. family at bedside. tolerating diet well. pharmacy aware of vanc trough, new orders received. SRNA's assisted in washing patients hair. no complaints at this time, call light within reach.
[2025-07-04] MEDS: ATORVASTATIN 20MG TABLET 20 MG PO (20:00)
[2025-07-04] MEDS: ROPINIROLE 1MG TABLET 1 MG PO (20:00)
[2025-07-04] MEDS: PANTOPRAZOLE 40MG TABLET 40 MG PO (20:00)
[2025-07-05] VITALS (8 sets, daily range): BP systolic 133–148; BP diastolic 78–85; PULSE 85–117; RESP 16–18; TEMP 36.8–36.9; O2SAT 93–99; BMI 18.6
[2025-07-05] MEDS: PIPERACILLIN/TAZO 4.5 GM in 0.9 % SODIUM CHLORIDE 100 ML IV ×2 (01:14→08:45)
[2025-07-05] MEDS: VANCOMYCIN HCL 750 MG in 0.9 % SODIUM CHLORIDE 250 ML 125 MG IV (05:16)
[2025-07-05] MEDS: IPRATROPIUM/ALBUTEROL 3 ML NEB IH ×2 (06:14→11:21)
[2025-07-05] MEDS: TIOTROPIUM 18MCG/PUFF INHALER 1 CAP IH (06:14)
[2025-07-05 07:38] LABS: Hematocrit 30.7 % (37.0-47.0); Hemoglobin 9.4 g/dL (12.2-16.2); Immature Granulocytes % 0.7 %; Mean Corpuscular HGB Conc 30.6 g/dL (31.8-35.4); Mean Corpuscular Hemoglobin 26.8 pg (27.0-31.2); Mean Corpuscular Volume 87.5 fl (81-99); Nucleated Red Blood Cells % 0 %; Platelet Count 222 K/mm3 (142-424); Red Blood Count 3.51 M/mm3 (4.20-5.40); Red Cell Distribution Width-SD 43.2 fL; White Blood Count 10.2 K/mm3 (4.8-10.8)
[2025-07-05 07:53] LABS: Alanine Aminotransferase 24 U/L (12-78); Albumin Level 3.8 g/dl (3.5-5.0); Albumin/Globulin Ratio 1.8 (1.1-1.8); Alkaline Phosphatase 94 U/L (38-126); Anion Gap 8.5 mEq/L (5-15); Aspartate Amino Transferase 30 U/L (14-36); Bilirubin,Total 0.3 mg/dl (0.2-1.3); Blood Urea Nitrogen 5 mg/dl (7-17); Calcium 8.7 mg/dl (8.4-10.2); Carbon Dioxide 30 mmol/L (22.0-30.0); Chloride 95 mmol/L (98-107); Creatinine Clearance Estimated 66 mL/min (50-200); Creatinine,Serum 0.70 mg/dl (0.52-1.04); Estimated Glomerular Filt Rate 87 ml/min (>60); GFR (African American) 105 ML/MIN (>60); Globulin 2.1 g/dL (1.3-3.2); Glucose 98 mg/dl (74-100); Potassium 3.5 mmoL/L (3.5-5.1); Sodium 130 mmol/L (136-145); Total Protein,Serum 5.9 g/dl (6.3-8.2)
[2025-07-05] MEDS: BACLOFEN 10MG TABLET 10 MG PO ×2 (08:46→12:46)
[2025-07-05] MEDS: ASPIRIN EC 81MG TABLET 81 MG PO (08:46)
[2025-07-05] MEDS: APIXABAN 5MG TABLET 5 MG PO (08:46)
--- NOTE | 2025-07-05 09:19 | [facility].PHAAMS2 ---
- Antimicrobial Stewardship Review culture & sensitivity review Stewardship interventions: culture & sensitivity review (NO GROWTH IN CULTURES, WBC DECREASED.)
--- NOTE | 2025-07-05 09:33 | HMH.PHAAMS2 ---
- Antimicrobial Stewardship Review 48 hour timeout review Stewardship interventions: 48 hour timeout review (WBC 27.7 TO 10.2 TODAY. CULTURE NEGATIVE SO FAR. CONTINUE CURRENT ABX.)
--- NOTE | 2025-07-05 11:05 | P.DS_ITS ---
General Admission date:: 07/02/25 Discharge date: 07/05/25 HPI HPI HPI: 54-year-old patient presents to ER with complaints of scalp pain. She states she believes she has shingles on her scalp. She described 1 week of having the sensation that her scalp is on fire. And her scalp was very red. She states this was the same as the last time she had shingles which she was seen and diagnosed by physician according to her. She reports putting mayonnaise, hot oil and tea tree oil on her scalp to help relieve it. She further states that it was then rinsed out in the shower with hot water. She reports the she did not feel the water was so hot that it would cause a burn. She was noted to be in respiratory distress by ER staff. Patient does states she became more short of breath after she took her oxygen off to come into the ER. She states she had her oxygen on in the car and then when she got out of the car she took it off and did not put it back on to walk in. She is on 3 L nasal cannula at baseline. Upon presentation to the ER her sat was 84% on room air. She had circumoral as well as fingertip cyanosis. Patient states if she goes without her oxygen at home she has a similar drop in her O2 sat as well as the cyanotic findings however they report that today it was worse. She has extensive lung history with COPD and bullous emphysema, she also has lung cancer with mets to liver. She sees Dr. Richards but has opted to forego any cancer treatment. She was placed back on oxygen and given nebulizer treatments, IV steroids, magnesium and ultimately given antibiotics after she was found to have an elevated white count. She states she is feeling much better after this treatment. She is back on her baseline of 3 L and the sats are low to mid 90s.White blood cell count was 27.7. Renal function is within normal limits, troponin is negative as well as BNP. CRP is 190 and sed rate is 43. Urinalysis is negative except for 1+ blood. She is negative for COVID, influenza A and B. CT chest shows no evidence of pulmonary embolism, severe emphysema changes with bullous disease in the right lung apex these appear stable. No infiltrate is identified. CT abdomen and pelvis showed questionable mild small bowel changes of gastroenteritis or ileus with no bowel obstruction or perforation. There is epigastric fatty hernia slightly increased in size without bowel herniation. Mild stranding in the herniated fat. Hepatic lesions are again noted. Hospital Course Hospital Course Hospital Course: Patient initially came to the ER for complaints of scalp pain that she felt was due to shingles. She was ultimately found to be significantly hypoxic after taking her home O2 off to walk into the ER. O2 sats were 84% with cyanosis around her mouth and in her fingers. She was treated in the ER with breathing treatments, magnesium, IV fluids and antibiotics. The redness on her scalp does not have a typical shingles appearance however she did apply a hot oil and mayonnaise treatment as a home remedy. This may be obscuring the original rash. After discussion with the ER provider I have agreed to except this patient for admission. She will be placed in stepdown. Continue IV antibiotics, breathing treatments, O2 therapy. White blood cell count is significantly elevated howev er as there is no obvious pneumonia on CT. Urinalysis is normal. There is an abnormal finding on the abdominal CT. It shows small midline epigastric and fatty anterior abdominal wall hernia mildly increased in size from November 2024. There is no associated bowel herniation but there is mild stranding in the herniated fat. Could represent strangulated fatty hernia however patient has no abdominal symptoms at this time. 1 day of diarrhea a few days ago but since then no further diarrhea no nausea no vomiting and no abdominal pain. She has not had fever chills or bodyaches at home. She does meet SIRS criteria so we will continue to treat empirically for acute exacerbation of COPD and respiratory infection. She is empirically on vancomycin and Zosyn. Started Valtrex for suspected shingles. Rash showed gradual improvement. Stable on baseline oxygen. Discontinued antibiotics, cultures remain negative. No indication for further antibiotics at discharge. Will complete empiric course for her shingles. Stable discharge home. Follow-up with PCP as an outpatient. Problems addressed as follows: Shingles Leukocytosis White count initially elevated, unclear specific etiology. Suspect related to what appears to be a shingles outbreak on her head. Initiated on empiric antibiotics and Valtrex for shingles. Cultures remain negative during admission. Discontinued antibiotics prior to discharge. Will continue oral Valtrex to complete empiric course for shingles. Rash appears dry with scabbing by day of discharge. Pain improving. HFpEF?patient has history of heart failure with preserved EF. Echocardiogram November 2024 shows LVEF of 65 to 70% severe right ventricle dilatation and severe reduction in RV function. Moderate tricuspid regurg. Markedly elevated RVSP at >60. Currently BNP is 105, troponin <0.01. She appears to be euvolemic. Blood pressure is stable but on the low side of normal, will hold off on fluids for now however we may need to give bolus if pressure drops. She received 500 cc of LR in the ER. Overall did well. No indication for diuresis. CAD with chest pain?suspect his chest pain is pleuritic. Serial troponins have been negative. EKG shows sinus tachycardia without ST changes. Lung and liver cancer?patient reports history of lung and liver cancer. Follows with Dr. Ruiz. Unclear of when these diagnoses were made as chart review does not show significant mention of these conditions in his notes. She does however see him for anemia. Patient still wants to be full code. Reportedly is not seeking treatment for these cancers. Will defer further management to outpatient setting with oncology. Epileptic seizures?patient states her last seizure was 2 to 3 months ago. Stable on Keppra 1 g twice daily. No seizures during admission Conjunctivitis: Initiated Naphcon and ciprofloxacin eyedrops 4 times a day for 5 days. Continue at discharge Chronic hyponatremia, sodium in her normal range around 130 during admission. Total time spent on discharge 32 minutes in counseling, documentation, chart review, and direct care with patient. Exam Data for Last 24 hours Vital signs and Labs for Last 24 Hours: Temp Pulse Resp BP Pulse Ox O2 Del Method O2 Flow Rate 98.4 F 92 H 18 148/80 H 96 Nasal Cannula 2 07/05/25 08:00 07/05/25 08:00 07/05/25 08:00 07/05/25 08:00 07/05/25 08:15 07/05/25 09:10 07/05/25 09:10 FiO2 32 07/02/25 23:59 Laboratory Results - last 24 hr 07/04/25 15:25: Vancomycin Trough 8.4 07/05/25 06:40: WBC 10.2 D, RBC 3.51 L, Hgb 9.4 L, Hct 30.7 L, MCV 87.5, MCH 26.8 L, MCHC 30.6 L, RDW 13.5, Plt Count 222, MPV 10.1, Neut % (Auto) 64.2, Lym ph % (Auto) 18.4, [place] % (Auto) 11.9 H, Eos % (Auto) 4.3, Baso % (Auto) 0.5, Neut # (Auto) 6.5, Lymph # (Auto) 1.9, [place] # (Auto) 1.2 H, Eos # (Auto) 0.4, Baso # (Auto) 0.1, Sodium 130 L, Potassium 3.5, Chloride 95 L, Carbon Dioxide 30, Anion Gap 8.5, BUN 5 L D, Creatinine 0.70, Estimated Creat Clear 66, Estimated GFR 87, Est GFR ( Amer) 105, Glucose 98, Calcium 8.7, Total Bilirubin 0.3, AST 30, ALT 24, Alkaline Phosphatase 94, Total Protein 5.9 L, Albumin 3.8 D, Globulin 2.1, Albumin/Globulin Ratio 1.8 I & O for Last 24 hours: Intake & Output 07/02/25 07/03/25 07/04/25 07/05/25 23:59 23:59 23:59 23:59 Intake Total 2000.000 / 2250.000 3120 / 3120 1640 / 2120 1170 / 1170 Output Total 1700 / 1700 0 / 0 0 / 0 Balance 2000.000 / 2250.000 1420 / 1420 1640 / 2120 1170 / 1170 Weight 44.452 kg 43.953 kg 43 kg 45.87 kg Microbiology Reports for the Last 24 Hours: Microbiology 07/02/25 15:08 Blood Blood Culture - Preliminary NO GROWTH AFTER 48 HOURS 07/02/25 14:39 Blood Blood Culture - Preliminary NO GROWTH AFTER 48 HOURS Constitutional Constitutional: no acute distress, cachectic, chronically ill appearing and cooperative *Routine HEENT Exam Head: Present other (Dried scabbed rash on right side of head and hairline consistent with C1 distribution) Eye: Present EOMI and PERRL ENT: Present mucous membranes moist Comments: Mild scleral injection, improving *Routine Neck Exam Neck: Present supple *Routine Respiratory Exam Respiratory: Present prolonged expiratory phase, wheezes (Minimal, her chronic baseline), diminished air movement and normal respiratory effort; Absent accessory muscle use or crackles *Routine Cardiovascular Exam Cardiovascular: Present RRR, Normal S1 and Normal S2; Absent murmur, gallop or rubs *Routine Abdominal Exam Abdominal: Present soft; Absent tenderness *Routine Rectal Exam Patient deferred: visual exam *Routine Exam Patient deferred: external exam *Routine Extremities Exam Extremities: Present pulses intact; Absent cyanosis or edema *Routine Skin Exam Skin: Present intact; Absent erythema or wounds *Routine Neurological Exam Neurological: Present alert, oriented X3 and moving all extremities; Absent altered mental status Routine Psychiatric Exam Psychiatric: Present cooperative Results Data Completed and Pending Labs on day of discharge: Labs from last 24 hours 07/05/25 07/04/25 06:40 15:25 WBC 10.2 D RBC 3.51 L Hgb 9.4 L Hct 30.7 L MCV 87.5 MCH 26.8 L MCHC 30.6 L RDW 13.5 Plt Count 222 MPV 10.1 Neut % (Auto) 64.2 Lymph % (Auto) 18.4 [place] % (Auto) 11.9 H Eos % (Auto) 4.3 Baso % (Auto) 0.5 Neut # (Auto) 6.5 Lymph # (Auto) 1.9 [place] # (Auto) 1.2 H Eos # (Auto) 0.4 Baso # (Auto) 0.1 Sodium 130 L Potassium 3.5 Chloride 95 L Carbon Dioxide 30 Anion Gap 8.5 BUN 5 L D Creatinine 0.70 Estimated Creat Clear 66 Estimated GFR 87 Est GFR ( Amer) 105 Glucose 98 Calcium 8.7 Total Bilirubin 0.3 AST 30 ALT 24 Alkaline Phosphatase 94 Total Protein 5.9 L Albumin 3.8 D Globulin 2.1 Albumin/Globulin Ratio 1.8 Vancomycin Trough 8.4 Preliminary micro results at discharge 07/02/25 15:08 Blood Culture - Preliminary Blood NO GROWTH AFTER 48 HOURS 07/02/25 14:39 Blood Culture - Preliminary Blood NO GROWTH AFTER 48 HOURS DS: Diagnosis Discharge Diagnosis (1) Acute hypoxic respiratory failure: Status: Resolved Code(s): J96.01 - Acute respiratory failure with hypoxia Problem details: Ruled out, secondary to coming to the ER without oxygen. Currently on baseline oxygen (2) SIRS (systemic inflammatory response syndrome): Status: Acute Code(s): R65.10 - Systemic inflammatory response syndrome (SIRS) of non-infectious origin without acute organ dysfunction (3) Acute exacerbation of chronic obstructive pulmonary disease: Status: Acute Code(s): J44.1 - Chronic obstructive pulmonary disease with (acute) exacerbation (4) Rash: Status: Acute Code(s): R21 - Rash and other nonspecific skin eruption (5) (HFpEF) heart failure with preserved ejection fraction: Status: Chronic Code(s): I50.30 - Unspecified diastolic (congestive) heart failure (6) Epileptic seizure: Status: Acute Code(s): G40.909 - Epilepsy, unspecified, not intractable, without status epilepticus (7) Pulmonary hypertension: Status: Acute Code(s): I27.20 - Pulmonary hypertension, unspecified (8) HLD (hyperlipidemia): Status: Acute Code(s): E78.5 - Hyperlipidemia, unspecified Qualifiers: Hyperlipidemia type: unspecified Qualified Code(s): E78.5 - Hyperlipidemia, unspecified (9) CAD (coronary artery disease): Status: Acute Code(s): I25.10 - Atherosclerotic heart disease of [place] coronary artery without angina pectoris Qualifiers: Associated angina: with stable angina Coronary Disease-Associated Artery/Lesion type: [place] artery [place] vs. transplanted heart: [place] heart Qualified Code(s): I25.118 - Atherosclerotic heart disease of [place] coronary artery with other forms of angina pectoris (10) HTN (hypertension): Status: Acute Code(s): I10 - Essential (primary) hypertension Qualifiers: Hypertension type: essential hypertension Qualified Code(s): I10 - Essential (primary) hypertension (11) Lung cancer: Status: Acute Code(s): C34.90 - Malignant neoplasm of unspecified part of unspecified bronchus or lung (12) Liver cancer: Status: Acute Code(s): C22.9 - Malignant neoplasm of liver, not specified as primary or secondary (13) Conjunctivitis: Status: Acute Code(s): H10.9 - Unspecified conjunctivitis (14) Shingles: Status: Acute Code(s): B02.9 - Zoster without complications Meds Home Medications and Allergies Home Medications ?Medication ?Instructions ?Recorded ?Confirmed ?Type levetiracetam 1,000 mg tablet 1,000 mg PO BID 09/26/22 07/02/25 History ropinirole 1 mg tablet 1 mg PO HS 12/02/24 07/02/25 History pramipexole 1 mg tablet 1 mg PO DAILY 12/23/2407/02 History ferrous sulfate 325 mg (65 mg 325 mg PO DAILY #90 tabs 12/26/24 07/02/25 Rx iron) tablet apixaban 5 mg tablet (Eliquis) 5 mg PO BID #180 tabs 0 01/06/25 07/02/25 Rx aspirin 81 mg tablet,delayed 81 mg PO DAILY #30 tabs 0 03/05/25 07/02/25 Rx release (Adult Low Dose Aspirin) rosuvastatin 20 mg tablet (Crestor) 20 mg PO DAILY #30 tabs 03/05/25 07/02/25 Rx baclofen 10 mg tablet 10 mg PO TID #90 tabs 07/02/25 Rx albuterol sulfate 90 mcg/actuation 2 puff inhalation Q 6H PRN 06/05/25 07/02/25 Rx aerosol inhaler (Ventolin HFA) shortness of breath or wheezing #8.5 grams budesonide-formoterol HFA 160 2 puff inhalation BID sh ortness of 06/05/25 07/02/25 Rx mcg-4.5 mcg/actuation aerosol breath or wheezing #10.2 grams inhaler (Symbicort) ipratropium 0.5 mg-albuterol 3 mg 3 ml inhalation Q6H PRN shortness 06/05/25 07/02/25 Rx (2.5 mg base)/3 mL nebulization of breath or wheezing #180 mL soln tiotropium bromide 18 mcg capsule 1 cap inhalation ALAINA LY 90 days #90 06/05/25 07/02/25 Rx with inhalation device (Spiriva caplets with HandiHaler) metoprolol succinate 25 mg 25 mg PO DAILY #30 tabs 07/02/25 Rx tablet,extended release 24 hr ergocalciferol (vitamin D2) 1,250 1,250 mcg PO WEEKLY 07/03/25 07/03/25 History mcg (50,000 unit) capsule (Vitamin D2) ciprofloxacin HCl 0.3 % eye drops 1 drp ophthalmic (ey e) QID 3 days 07/05/25 Rx #0 mL naphazoline 0.025 %-pheniramine 1 drp ophthalmic (eye) Q6HP PRN 07/05/25 Rx 0.3 % eye drops (Naphcon-A) Eye Irritation #0 mL valacyclovir 1 gram tablet 1,000 mg PO TID 5 days #15 tabs 07/05/25 Rx New Prescriptions to Start Prescriptions: valacyclovir Jordan Beck Allergies Allergy/AdvReac Type Severity Reaction Status Date / Time No Known Allergies Allergy Verified 06/10/25 10:59 Discharge Plan Disposition Patient Disposition: Home, Self-Care Condition: Fair Follow up Plan Follow up with: José Liriano APRN [Primary Care Provider, [facility]] - 07/09/25 1:40 pm Prescriptions/Medication Reconciliation: New ciprofloxacin HCl 0.3 % Drops 1 drp ophthalmic (eye) QID 3 Days Qty: 0 0RF Rx Instructions: Send bottle home from hospital Naphcon-A 0.025-0.3 % Drops 1 drp ophthalmic (eye) Q6HP PRN (Reason: Eye Irritation) Qty: 0 0RF Rx Instructions: Send bottle home from hospital valacyclovir 1 gram tablet 1,000 mg PO TID 5 Days Qty: 15 0RF Continued levetiracetam 1,000 mg tablet 1,000 mg PO BID ferrous sulfate 325 mg (65 mg iron) tablet 325 mg PO DAILY Qty: 90 3RF rosuvastatin [Crestor] 20 mg tablet 20 mg PO DAILY Qty: 30 5RF aspirin [Adult Low Dose Aspirin] 81 mg tablet,delayed release (DR/EC) 81 mg PO DAILY Qty: 30 5RF pramipexole 1 mg tablet 1 mg PO DAILY ipratropium-albuterol 0.5 mg-3 mg(2.5 mg base)/3 mL solution for nebulization 3 ml inhalation Q6H PRN (Reason: shortness of breath or wheezing) Qty: 180 6RF albuterol sulfate [Ventolin HFA] 90 mcg/actuation HFA aerosol inhaler 2 puff inhalation Q6H PRN (Reason: shortness of breath or wheezing) Qty: 8.5 3RF budesonide-formoterol [Symbicort] 160-4.5 mcg/actuation HFA aerosol inhaler 2 puff inhalation BID Qty: 10.2 3RF tiotropium bromide [Spiriva with HandiHaler] 18 mcg capsule, w/inhalation device 1 cap inhalation DAILY 90 Days Qty: 90 3RF Rx Instructions: puncture 1 cap using device; one dose = 2 inhalations Eliquis 5 mg tablet 5 mg PO BID Qty: 180 3RF baclofen 10 mg tablet 10 mg PO TID Qty: 90 2RF metoprolol succinate 25 mg tablet extended release 24 hr 25 mg PO DAILY Qty: 30 5RF ergocalciferol (vitamin D2) [Vitamin D2] 1,250 mcg (50,000 unit) capsule 1,250 mcg PO WEEKLY ropinirole 1 mg tablet 1 mg PO HS Problem Reconciliation Problems Reviewed?: Yes Patient Discharge Instructions ACTIVITY: Continue current activity DIET: continue same diet Patient Instructions: DI for Sepsis in Adults Print Language: Iranian Providers Primary Care Provider: José Liriano Admit Provider: Jordan Beck Attending Provider: Jordan Beck
--- NOTE | 2025-07-07 10:42 | SW/DCPLANNER ---
Spoke with patient on the phone. Patient stated that she is doing good. Patient stated that she is aware of her upcoming appointments. Patient stated that she was able to picking tech her new medicine. Patient stated that she has no concerns or questions at this time. Warren Preciado
[2025-07-09 15:49] LABS: POC Glucose,Bedside 116 gm/dL (70-110)
== END 2025-07-05 13:47 | disposition home or self-care (01) ==
LOC: ER 19:39 → ICU 19:47 → 2ND 07-03 14:49
PROVIDERS: Nurse Practitioner; Nurse Practitioner Acute Care; Student in an Organized Health Care Education/Training Program; Admitting Provider Internal Medicine Adolescent Medicine; Emergency Provider Emergency Medicine; PCP Nurse Practitioner Family; Visit Provider Internal Medicine Adolescent Medicine
DX: B02.9 Zoster without complications (principal); R65.10 Systemic inflammatory response syndrome (SIRS) of non-infectious origin without acute organ dysfunction; I50.30 Unspecified diastolic (congestive) heart failure; G40.909 Epilepsy, unspecified, not intractable, without status epilepticus; I27.20 Pulmonary hypertension, unspecified; E78.5 Hyperlipidemia, unspecified; I25.10 Atherosclerotic heart disease of native coronary artery without angina pectoris; I11.0 Hypertensive heart disease with heart failure; C34.90 Malignant neoplasm of unspecified part of unspecified bronchus or lung; C78.7 Secondary malignant neoplasm of liver and intrahepatic bile duct; H10.30 Unspecified acute conjunctivitis, unspecified eye; Z79.899 Other long term (current) drug therapy; Z79.01 Long term (current) use of anticoagulants; Z79.82 Long term (current) use of aspirin; J43.9 Emphysema, unspecified; K43.9 Ventral hernia without obstruction or gangrene; Z99.81 Dependence on supplemental oxygen; K76.9 Liver disease, unspecified; Z90.710 Acquired absence of both cervix and uterus; Z83.6 Family history of other diseases of the respiratory system; Z82.49 Family history of ischemic heart disease and other diseases of the circulatory system; Z86.711 Personal history of pulmonary embolism; F17.200 Nicotine dependence, unspecified, uncomplicated; Z87.09 Personal history of other diseases of the respiratory system; I25.118 Atherosclerotic heart disease of native coronary artery with other forms of angina pectoris; R00.0 Tachycardia, unspecified
CPT/HCPCS: 36415; 36600; 71275; 74177; 80053; 80202; 81001; 82550; 82803; 82962; 83605; 83735; 83880; 84484; 85007; 85025; 85027; 85610; 85651; 85730; 86140; 87040; 87636; 93005; 94640; 94761; 96361; 96365; 96366; 96367; 96375; 99285; G0378; J1100; J2543; J3373; J3475; J7030; J7050; J7120; J7614; Q9967

== ENCOUNTER 2025-07-11 16:12 | Emergency (ER) | payer OTHER, SELFPAY ==
[2025-07-11 16:15] VITALS: BP 151/81; PULSE 103; RESP 22; TEMP 37.1; O2SAT 98; BMI 17.4
--- NOTE | 2025-07-11 16:34 | CT_ITS ---
PROCEDURE INFORMATION: Exam: CTA Chest With Contrast Exam date and time: 07/11/2025 5:19 PM Age: 54 years old Clinical indication: Dyspnea; Additional info: Dyspnea, history of pe TECHNIQUE: Imaging protocol: Computed tomographic angiography of the chest with contrast. Exam focused on the arteries. 3D rendering (Not supervised by radiologist): MIP and/or 3D reconstructed images were created by the technologist. Radiation optimization: All CT scans at this facility use at least one of these dose optimization techniques: automated exposure control; mA and/or kV adjustment per patient size (includes targeted exams where dose is matched to clinical indication); or iterative reconstruction. Contrast material: ISOVUE 370; Contrast volume: 70 ml; Contrast route: INTRAVENOUS (IV); COMPARISON: CT ANGIO CHEST PE PROTOCOL 07/02/2025 4:10 PM FINDINGS: Pulmonary arteries: No evidence of pulmonary embolus to the segmental level. Aorta: No aneurysm of the aorta. No dissection of the aorta. Lungs: Stable calcified bulla in the right apex. Mild panlobular emphysematous changes Pleural spaces: Unremarkable. No pneumothorax. No pleural effusion. Heart: Unremarkable. No cardiomegaly. No pericardial effusion. Lymph nodes: Unremarkable. No enlarged lymph nodes. Bones/joints: Unremarkable. No acute fracture. Soft tissues: Unremarkable. IMPRESSION: 1. No evidence of pulmonary embolus to the segmental level. 2. No aneurysm of the aorta. 3. No dissection of the aorta. COMMENTS: The presence of pulmonary emphysema on CT is an independent risk factor for lung cancer. In the absence of a history or active diagnosis of lung cancer, it is recommended that this patient with emphysema be evaluated for enrollment in a low dose CT lung cancer screening program.
--- NOTE | 2025-07-11 16:34 | XR_ITS ---
PROCEDURE INFORMATION: Exam: XR Chest Exam date and time: 07/11/2025 4:39 PM Age: 54 years old Clinical indication: Shortness of breath; Additional info: Dyspnea TECHNIQUE: Imaging protocol: Radiologic exam of the chest. Views: 1 view. Total images: 1 COMPARISON: CT ANGIO CHEST PE PROTOCOL 07/02/2025 4:10 PM FINDINGS: Lungs: Emphysematous changes noted bilaterally. Bullous emphysematous cysts noted within the right lung apex with peripheral calcifications. This is unchanged. Atelectatic and/or early infiltrative changes noted within the left lower lobe. Bronchiectatic changes noted within the hilar regions bilaterally. Pleural spaces: No pleural effusion. No pneumothorax. Heart/Mediastinum: No cardiomegaly. Bones/joints: Old right-sided rib fractures. IMPRESSION: 1. Emphysematous changes noted bilaterally. 2. Bullous emphysematous cysts noted within the right lung apex with peripheral calcifications. This is unchanged. 3. Atelectatic and/or early infiltrative changes noted within the left lower lobe. 4. Bronchiectatic changes noted within the hilar regions bilaterally.
--- OUTSIDE RECORDS SUMMARY | 2025-07-11 16:37 | XMS_ITS | Clinical Summary ---
Author Organization [facility] Address [address] [place] [address] Care Team Providers Care Extruder Operator Multiple Name Role Phone System, Provider Not In [...] therelease of HIV test results or diagnoses. [id number] Allergies No known active allergies Medications [...] drink = 0.6 oz pur e alcohol) [facility] Utilities Answer Date Recorded In the past 12 months has [employer], [employer], or water [employer] threatened to shut off services in your [...] any time in the past 12 m [facility], were you homeless or living in a [...] Immunization: COVID-19 ( season) 2025 Immunization: Influenza ([employer]) (#1) 2025 HIV Screening Completed 11/20/2024 Hepatitis C Screening ([employer]) Completed Procedures Procedure Name Priority Date/Time Associated [...] possibility of exposure to HCV. Boris Alcaraz [facility] BLOOD ORDERABLES Final Resu lt [facility] [address] * HIV 1+2 Antibody/Antigen with Reflex (11/20/2024 6:56 AM EDT) HIV 1+2 AB/AGN Nonreactive Nonreactive 11/20/2024 7:56 AM EDT [facility] Serum 11/20/2024 6:56 AM EDT 11/20/2024 7:05 AM EDT Narrative [facility] - 11/20/2024 7:56 AM EDT \HIVRNR Boris Alcaraz [facility] BLOOD ORDERABLES Final Resu lt [facility] [address] from Last 3 Months or Most Recently Relevant to Health Maintenance Insurance [employer] [facility] Advance Directives For more information, please contact: [phone] * Full Code (Latest Code Status on File) Date Activated Date Inactivated Comments 11/20/2024 2:34 AM 11/27/2024 2:18 AM Care Teams Extruder Operator Multiple Relationship Specialty Start Date End Date System, Provider Not In PCP - General 11/21/24
--- OUTSIDE RECORDS SUMMARY | 2025-07-11 16:37 | XMS_ITS | Clinical Summary ---
Author Organization Healthcare Address [address] [place] [address] Care Team Providers Care Cluster Bore Operator Name Role Phone Mariana Faith Primary Care Provider [phone] Immunizations Immunization Administration Dates Next Due Influenza, [...] - PCV20 or PCV21) 02/17/2021 02/18/2016, 09/14/2012 [id number] Vaccine (1 - 2024- season) 2025 UKY-Influenza Vaccine (#1) 2025 09/14/2012 [...] Narrative [facility] - 09/15/2012 9:54 AM EST [facility] MR #: [id number] [facility] FengBhaskar [place], [place] [address] 1970 (Age: 41) FW Collect Date: 09/11/2012 00:00 Receipt Date: 09/12/2012 07:26 Page 1 DEPARTMENT OF PATHOLOGY AND LABORATORY MEDICINE CYTOPATHOLOGY REPORT Email: [email or web address] ATTENDING MD/Practitioner: Graeme Brown MD Service: [facility] Location: [facility] [...] (COPD) 305.00 ALCOHOL ABUSE, UNSPECIFIED F: A; 13712 SNOMED CODES: A; [id number] A resident has participated in this service. A pathologist has performed and is responsible for the reported pathologic evaluation. us Historical Provider LAB PATHOLOGY ORDERABLES Fin al Result Performing Organization Address City/State/[facility] Co de Phone Number [facility] from Last 3 Months or Most Recently Relevant to Health Maintenance Insurance [employer] [facility] MEDICAID Care Teams Cluster Bore Operator Relationship Specialty Start Date End Date Mariana Faith PA [address] [place] [address] PCP - General 01/01/21
--- OUTSIDE RECORDS SUMMARY | 2025-07-11 16:37 | XMS_ITS | Clinical Summary ---
Author Organization [facility] Address [address] [place] [address] Care Team Providers Care Clay Mine Cutting Machine Operator Name Role Phone Gonzalez Goldman MD Primary Care Provider [phone] Allergies No known active allergies Medications clonazePAM (KlonoPIN) 0.5 MG tablet 01/30/2023 Active vitamin D (ERGOCALCIFEROL) 1.25 MG (94689 UT) capsule capsule 02/16/2023 Active levETIRAcetam (KEPPRA) [...] [employer] ADVANTAGE Care Teams Clay Mine Cutting Machine Operator Relationship Specialty Start Date End Date Gonzalez Goldman MD [address] [address] [address] ATTN: [place] [address] PCP - General Emergency Medicine 12/20/22
--- OUTSIDE RECORDS SUMMARY | 2025-07-11 16:37 | XMS_ITS | Encounter Summary ---
Author Organization Healthcare Address [address] [place] [address] Care Team Providers Care Splunk Consultant Name Role Phone Mariana Fatih Primary Care Provider [phone] [phone] Encounter Details Date Type Department Care Team [...] Notes * Hospital Course - Shreya Eagle, ATTORNEY GENERAL - 11/19/2024 8:30 PM EDT Rocio Gonzalez [...] Alk phos 57 Troponin 0.44 Pro bnp 07220 Procal 2.13 INR 1.3 Wbc 25 Plt [...] FiO2 as tolerated - Empiric broad-spectrum antibiotics: {abx:85651} - Propofol and hydromorphone drips to facilitate [...] on filedocumented in this encounter Care Teams Splunk Consultant Relationship Specialty Start Date End Date Mariana Faith PA [address] [place] [address] PCP - General 01/01/21 documented as of this encounter
[2025-07-11] MEDS: ASPIRIN 325MG TABLET 325 MG PO (16:38)
--- NOTE | 2025-07-11 16:40 | ECG_ITS ---
APPROVED REPORT Exam: Resting ECG HR:99 bpm ECG Measurements Heart Rate 99 AXES MN 171 P 76 QRSd 72 QRS 85 QT 345 T 54 QTc 401 Conclusion Normal sinus rhythm Normal axis Normal intervals No STEMI Electronically signed by : Crescencio Ramesh, 07/12/2025 01:45:31
[2025-07-11 16:44] LABS: Hematocrit 37.7 % (37.0-47.0); Hemoglobin 11.8 g/dL (12.2-16.2); Immature Granulocytes % 0.6 %; Mean Corpuscular HGB Conc 31.3 g/dL (31.8-35.4); Mean Corpuscular Hemoglobin 27.8 pg (27.0-31.2); Mean Corpuscular Volume 88.9 fl (81-99); Nucleated Red Blood Cells % 0 %; Platelet Count 431 K/mm3 (142-424); Red Blood Count 4.24 M/mm3 (4.20-5.40); Red Cell Distribution Width-SD 44.3 fL; White Blood Count 15.9 K/mm3 (4.8-10.8)
[2025-07-11 16:46] LABS: VBG HCO3 30.4 mmol/L (23-30); VBG PH 7.31 mmol/L (7.31-7.41); VBG PO2 35.6 mmol/L (28-40)
[2025-07-11 16:49] LABS: Alanine Aminotransferase 24 U/L (12-78); Albumin Level 4.6 g/dl (3.5-5.0); Albumin/Globulin Ratio 1.4 (1.1-1.8); Alkaline Phosphatase 84 U/L (38-126); Anion Gap 10.7 mEq/L (5-15); Aspartate Amino Transferase 26 U/L (14-36); Bilirubin,Total 0.4 mg/dl (0.2-1.3); Blood Urea Nitrogen 12 mg/dl (7-17); Calcium 9.2 mg/dl (8.4-10.2); Carbon Dioxide 33 mmol/L (22.0-30.0); Chloride 93 mmol/L (98-107); Creatinine Clearance Estimated 62 mL/min (50-200); Creatinine,Serum 0.70 mg/dl (0.52-1.04); Estimated Glomerular Filt Rate 87 ml/min (>60); GFR (African American) 105 ML/MIN (>60); Globulin 3.2 g/dL (1.3-3.2); Glucose 101 mg/dl (74-100); Lipase 58 U/L (23-300); Potassium 3.7 mmoL/L (3.5-5.1); Sodium 133 mmol/L (136-145); Total Protein,Serum 7.8 g/dl (6.3-8.2)
[2025-07-11 16:50] LABS: Lactate Venous 2.3 mmol/L (0.4-2.0); VBG PCO2 62.4 mmol/L (35-51)
[2025-07-11 17:01] LABS: NT Pro Brain Natriuretic Pep. 51.9 pg/mL (0-125)
[2025-07-11 17:02] LABS: Troponin I < 0.01 ng/ml (0.00-0.034)
[2025-07-11] MEDS: 0.9 % SODIUM CHLORIDE 50 ML VIAL IV (17:20)
[2025-07-11] MEDS: SODIUM CHLORIDE 0.9% 10ML SYR (RAD ONLY) 10 ML IV (17:20)
[2025-07-11] MEDS: IOPAMIDOL-370 (76%);100ML BOTTLE 70 ML IV (17:20)
[2025-07-11 17:30] VITALS: BP 135/71; PULSE 99; O2SAT 98
[2025-07-11 18:00] VITALS: BP 109/72; PULSE 95; O2SAT 98
--- NOTE | 2025-07-11 18:35 | HMH.EDGENADL ---
Discharge Plan Disposition Patient Disposition: Home, Self-Care Condition: Good Prescriptions Prescriptions: No Action levetiracetam 1,000 mg tablet 1,000 mg PO BID ferrous sulfate 325 mg (65 mg iron) tablet 325 mg PO DAILY Qty: 90 3RF rosuvastatin [Crestor] 20 mg tablet 20 mg PO DAILY Qty: 30 5RF aspirin [Adult Low Dose Aspirin] 81 mg tablet,delayed release (DR/EC) 81 mg PO DAILY Qty: 30 5RF pramipexole 1 mg tablet 1 mg PO DAILY ipratropium-albuterol 0.5 mg-3 mg(2.5 mg base)/3 mL solution for nebulization 3 ml inhalation Q6H PRN (Reason: shortness of breath or wheezing) Qty: 180 6RF albuterol sulfate [Ventolin HFA] 90 mcg/actuation HFA aerosol inhaler 2 puff inhalation Q6H PRN (Reason: shortness of breath or wheezing) Qty: 8.5 3RF budesonide-formoterol [Symbicort] 160-4.5 mcg/actuation HFA aerosol inhaler 2 puff inhalation BID Qty: 10.2 3RF tiotropium bromide [Spiriva with HandiHaler] 18 mcg capsule, w/inhalation device 1 cap inhalation DAILY 90 Days Qty: 90 3RF Rx Instructions: puncture 1 cap using device; one dose = 2 inhalations amoxicillin-pot clavulanate 875-125 mg tablet 1 tab PO BID 10 Days Qty: 20 0RF Eliquis 5 mg tablet 5 mg PO BID Qty: 180 3RF baclofen 10 mg tablet 10 mg PO TID Qty: 90 2RF metoprolol succinate 25 mg tablet extended release 24 hr 25 mg PO DAILY Qty: 30 5RF ergocalciferol (vitamin D2) [Vitamin D2] 1,250 mcg (50,000 unit) capsule 1,250 mcg PO WEEKLY ciprofloxacin HCl 0.3 % Drops 1 drp ophthalmic (eye) QID 3 Days Qty: 0 0RF Rx Instructions: Send bottle home from hospital Naphcon-A 0.025-0.3 % Drops 1 drp ophthalmic (eye) Q6HP PRN (Reason: Eye Irritation) Qty: 0 0RF Rx Instructions: Send bottle home from hospital valacyclovir 1 gram tablet 1,000 mg PO TID 5 Days Qty: 15 0RF ropinirole 1 mg tablet 1 mg PO HS Referrals Follow up/Referrals: José Liriano APRN [Primary Care Provider, Family Practice] - See instructions Activity Restrictions/Add. Instructions Additional Instructions/Restrictions: Please continue taking the antibiotic and Valtrex that has been prescribed to you for the rash on your scalp. If you follow-up with Dr. Costa on July 24 and this scalp rash has not improved you may ask him to consider treatment for tinea capitis, which is a fungal infection of the scalp. If you have worsening shortness of breath or recurrent chest pain please return to the emergency department for further evaluation. Clinical Impressions Clinical Impression: Rash, Dyspnea Print Language Print Language: Turkish Discharge ED Provider: Crescencio Ramesh Adult HPI General Chief complaint: Shortness of Breath/Dyspnea Stated complaint: SOA, Swollen Eyes, burning in scalp Time Seen by Provider: 07/11/25 16:20 Mode of Arrival: Ambulatory Source of Information: Patient and Relative Description of Symptoms (Recalled from ER Triage Doc. by RN): Pt presents for evaluation of increasing tenderness to scalp, redness to bilateral eyes, and worsening shortness of breath. Pt states she is on 3L baseline, and has tried her nebulizer. Pt has audible wheezing. History of Present Illness HPI narrative: Is a 54-year-old female patient, with past medical history of hypertension, hyperlipidemia, coronary artery disease, COPD, multiple pulmonary emboli, pulmonary hypertension, HFpEF, and lung and liver cancer, who is presented to the emergency department today for evaluation of multiple complaints. The patient was actually admitted to our hospital on 07/02/2025 after presenting for shortness of breath and scalp irritation. She was diagnosed with an acute exacerbation of COPD with systemic inflammatory response syndrome and sepsis. She was treated with antibiotics and blood cultures cleared and she was de-escalated off of antibiotic therapy and stabilized for discharge home. Additionally, regarding her scalp irritation she reported to medical staff that she had been cleaning her scalp with hot tea oil and mayonnaise and felt that her scalp pain was similar to shingles that she had experienced in the past on her scalp. Therefore during her admission she was started on Valtrex and discharged on Valtrex. In the interim she has followed up with her primary care physician for this scalp discomfort and he started her on an antibiotic in the event that this was a bacterial infection of the scalp. The chief reason that she asked he presented to the emergency department today was for burning and irritation of the scalp despite taking Valtrex and antibiotics. In addition to this she is also reporting some chest tightness and shortness of breath. She is on 3 L chronically at baseline and has not required any more oxygen than usual. She has also not required any increasing frequency of her inhalers at home. She has not had any lower extremity erythema or edema. No abdominal pain. No cough or production of phlegm. Related Data Home Medications ?Medication ?Instructions ?Recorded ?Confirmed levetiracetam 1,000 mg tablet 1,000 mg PO BID 09/26/22 07/09/25 ropinirole 1 mg tablet 1 mg PO HS 12/02/24 07/09/25 pramipexole 1 mg tablet 1 mg PO DAILY 12/23/24 07/09/25 ergocalciferol (vitamin D2) 1,250 1,250 mcg PO WEEKLY 07/03/25 07/09/25 mcg (50,000 unit) capsule (Vitamin D2) Previous Rx's ?Medication ?Instructions ?Recorded ferrous sulfate 325 mg (65 mg 325 mg PO DAILY #90 tabs 12/26/24 iron) tablet apixaban 5 mg tablet (Eliquis) 5 mg PO BID #180 tabs 01/06/25 aspirin 81 mg tablet,delayed 81 mg PO DAILY #30 tabs 03/05/25 release (Adult Low Dose Aspirin) rosuvastatin 20 mg tablet (Crestor) 20 mg PO DAILY #30 tabs 03/05/25 baclofen 10 mg tablet 10 mg PO TID #90 tabs 03/10/25 albuterol sulfate 90 mcg/actuation 2 puff inhalation Q6H PRN 06/05/25 aerosol inhaler (Ventolin HFA) shortness of breath or wheezing #8.5 grams budesonide-formoterol HFA 160 2 puff inhalation BID shortness of 06/05/25 mcg-4.5 mcg/actuation aerosol breath or wheezing #10.2 grams inhaler (Symbicort) ipratropium 0.5 mg-albuterol 3 mg 3 ml inhalation Q6H PRN shortness 06/05/25 (2.5 mg base)/3 mL nebulization of breath or wheezing #180 mL soln tiotropium bromide 18 mcg capsule 1 cap inhalation DAILY 90 days #90 06/05/25 with inhalation device (Spiriva caplets with HandiHaler) metoprolol succinate 25 mg 25 mg PO DAILY #30 tabs 06/16/25 tablet,extended release 24 hr ciprofloxacin HCl 0.3 % eye drops 1 drp ophthalmic (eye) QID 3 days 07/05/25 #0 mL naphazoline 0.025 %-pheniramine 1 drp ophthalmic (eye) Q6HP PRN 07/05/25 0.3 % eye drops (Naphcon-A) Eye Irritation #0 mL valacyclovir 1 gram tablet 1,000 mg PO TID 5 days #15 tabs 07/05/25 amoxicillin 875 mg-potassium 1 tab PO BID 10 days #20 tabs 07/09/25 clavulanate 125 mg tablet Allergies Allergy/AdvReac Type Severity Reaction Status Date / Time No Known Allergies Allergy Verified 07/09/25 13:56 [facility] Disclaimer: The information contained in this section may have been updated after the patient was seen, as this information can be updated by other users. Medical History Liver cancer Lung cancer HTN (hypertension) CAD (coronary artery disease) HLD (hyperlipidemia) COPD (chronic obstructive pulmonary disease) Multiple pulmonary emboli Pulmonary hypertension (HFpEF) heart failure with preserved ejection fraction Epileptic seizure Surgical History History of hysterectomy Family History Other Asthma COPD (chronic obstructive pulmonary disease) Hypertension Social History Smoking Status: Current every day smoker alcohol intake: never substance use type: denies use current occupational status: other Travel in the last 8 weeks?: None housing: other caffeine: Yes Have you lived/traveled outside US in past 30 days?: No Contact w/someone who lives/traveled outside US past 30 days?: No Exposure to someone with infectious disease in past 14 days?: No Do you have a fever (greater than 100.4 F or 38 C)?: No Have you tested positive for COVID-19?: No Exposed to someone with COVID-19 in past 14 days?: No Do you have a sore throat?: No Do you have a cough?: No Do you have any weakness?: No Do you have any diarrhea?: No Are you experiencing any unusual bleeding?: No Do you have any muscle aches/pain?: No Do you have any abdominal pain?: No Are you experiencing loss of taste or smell?: No Other Medical History Have you received the Flu Vaccine for this season: No Have you received the Pneumonia Vaccine: No ROS Obtained: Yes Systems reviewed as appropriate & no additional complaints except as documented Physical Exam General General appearance: other (See MDM) Respiratory Respiratory exam: Present other (See MDM) Cardiovascular Cardiovascular exam: Present other (See MDM) Neurological Exam Neurological exam: Present other (See MDM) Medical Decision Making Medical Records Medical records reviewed: Yes I reviewed the patient's medical records. Screening: Per USPSTF and CDC recommendations, given the prevalence of disease in our region, it is our hospital?s policy to screen for HIV and viral Hepatitis for all patients aged 18 and over and those with ongoing risk factors. Payam Inquiry Pt receiving controlled substance: No Payam was queried for this patient: No Vital Signs: 07/11/25 16:15 07/11/25 17:30 07/11/25 18:00 Temperature 98.7 F Temperature Source Oral Pulse Rate 99 H 95 H Pulse Rate [Right] 103 H Respiratory Rate 22 Blood Pressure 135/71 109/72 L Blood Pressure [Right Arm] 151/81 H Blood Pressure Mean [Right Arm] 104 Blood Pressure Source [Right Arm] Automatic Cuff Blood Pressure Position [Right Arm] Sitting 02 Sat by Pulse Oximetry 98 98 98 Oxygen Delivery Method Room Air Room Air Oxygen Flow Rate (LPM) 07/11/25 19:20 07/11/25 19:24 Temperature Temperature Source Pulse Rate 87 Pulse Rate [Right] Respiratory Rate 18 Blood Pressure 128/70 Blood Pressure [Right Arm] Blood Pressure Mean [Right Arm] Blood Pressure Source [Right Arm] Blood Pressure Position [Right Arm] 02 Sat by Pulse Oximetry 98 98 Oxygen Delivery Method Nasal Cannula Nasal Cannula Oxygen Flow Rate (LPM) 3 3 Lab Data Lab Results 07/11/25 16:27: WBC 15.9 H, RBC 4.24, Hgb 11.8 L, Hct 37.7, MCV 88.9, MCH 27.8, MCHC 31.3 L, RDW 14.3, Plt Count 431 H, MPV 9.4, Neut % (Auto) 74.8, Lymph % (Auto) 12.9, Ellis % (Auto) 8.5, Eos % (Auto) 2.8, Baso % (Auto) 0.4, Neut # (Auto) 11.9 H, Lymph # (Auto) 2.1, Ellis # (Auto) 1.4 H, Eos # (Auto) 0.4, Baso # (Auto) 0.1, VBG pH 7.31, VBG pCO2 62.4 H, VBG pO2 35.6, VBG HCO3 30.4 H, VBG Total CO2 32.3 H, VBG O2 Saturation 65.3, VBG Base Excess 4.0 H, VBG Lactic Acid 2.3 H, Sodium 133 L, Potassium 3.7, Chloride 93 L, Carbon Dioxide 33 H, Anion Gap 10.7, BUN 12, Creatinine 0.70, Estimated Creat Clear 62, Estimated GFR 87, Est GFR ( Amer) 105, Glucose 101 H, Calcium 9.2, Total Bilirubin 0.4, AST 26, ALT 24, Alkaline Phosphatase 84, Troponin I < 0.01, NT-Pro-B Natriuret Pep 51.9, Total Protein 7.8 D, Albumin 4.6, Globulin 3.2, Albumin/Globulin Ratio 1.4, Lipase 58 07/11/25 19:25: Troponin I < 0.01 07/11/25 16:27 07/11/25 16:27 Orders (Tests/Meds): ED MEDICATIONS Discontinued Medications Generic Name Dose Route Start Last Admin Trade Name Ines PRN Reason Stop Dose Admin Aspirin 325 mg 07/11/25 16:34 07/11/25 16:38 Aspirin 325mg Tablet PO 07/11/25 16:35 325 mg ONCE ONE Administration Iopamidol 70 ml 07/11/25 17:19 07/11/25 17:20 Iopamidol-370 (76%);100ml Bottle IV 07/11/25 17:20 70 ml ONCE ONE Administration Sodium Chloride 10 ml 07/11/25 17:19 07/11/25 17:20 Sodium Chloride 0.9% 10ml Syr (Rad Only) IV 07/11/25 17:20 10 ml ONCE ONE Administration Sodium Chloride 50 ml 07/11/25 17:19 07/11/25 17:20 0.9 % Sodium Chloride 50 Ml Vial IV 07/11/25 17:20 50 ml ONCE ONE Administration ORDERS Category Date Time Status CT angio chest PE protocol Stat Cat Scan 07/11/25 16:34 Completed CXR --portable [XR chest portable] Stat Exams 07/11/25 16:34 Completed BNP [NT Pro Brain Natriuretic Pep.] Stat Lab 07/11/25 16:27 Completed CBC w/Auto Diff [Complete Blood Count Auto Diff] Stat Lab 07/11/25 16:27 Completed CMP [Comprehensive Metabolic Panel] Stat Lab 07/11/25 16:27 Completed Lipase Stat Lab 07/11/25 16:27 Completed Troponin I Q3H Lab 07/11/25 19:25 Completed Troponin I Q3H Lab 07/11/25 22:45 Ordered Troponin I Stat Lab 07/11/25 16:27 Completed VBG [Venous Blood Gas] Stat RT 07/11/25 16:27 Completed ECG Data Tracing #1: I reviewed this ECG and interpreted as documented below: EKG was personally turbid by me and demonstrates normal sinus rhythm at a rate of 99 bpm, normal axis, no NE prolongation, narrow QRS, no QTc prolongation. No ST elevation or depression. No overt signs of ischemia or arrhythmia HEART Score History (anamnesis): Slightly suspicious ECG: Normal Age: 45-65 years Risk factors: 3 or more risk factors Troponin: </= normal limit HEART Score: 3 Medical Decision Narrative: In summary, this is a 54-year-old female patient who is presenting to the emergency department today for evaluation of scalp irritation as well as shortness of breath. She has a very extensive past medical history including lung cancer, liver cancer, pulmonary emboli, coronary artery disease, COPD, and heart failure. On initial evaluation of the patient she was resting comfortably in no acute distress and was nontoxic in appearance. She is hemodynamically stable and saturating well on her baseline 3 L of oxygen. She is not tachypneic. She does not demonstrate any accessory muscle use or increased work of breathing. On auscultation of her lungs bilaterally she has good air movement given her history of significant COPD and she does not have any wheezes appreciated. Additionally, she has no lower extremity erythema or edema. No abdominal tenderness on exam. Regarding her scalp, she has erythematous plaques on the scalp with yellow crusting present. Differential diagnosis includes COPD exacerbation, pulmonary embolism, ACS/OH, aortic dissection, among others. Regarding her scalp this could be bacterial folliculitis, shingles, or potentially even tinea capitis. Workup was initiated with hematologic labs as well as an x-ray, EKG, and CT PE study. Labs personally interpreted by me demonstrate a leukocytosis of 15.9, anemia that is improved from prior. Her ABG shows CO2 retention with a pCO2 of 62, however her bicarbonate is 30 and she is appropriately compensated with a normal pH. Her CMP demonstrates no significant electrolyte derangement or evidence of acute kidney injury. LFTs are normal. Initial troponin is less than 0.01. Delta troponin is less than 0.01. Chest x-ray was personally turbid by me and demonstrates no overt lobar consolidation. Official radiology read is in agreement states that there is emphysematous changes noted bilaterally with bullous emphysematous cysts noted within the right lung apex that are unchanged from prior. We proceeded with a CT PE study that was personally interpreted by me and demonstrated no evidence of saddle pulmonary embolus. Official radiology read is in agreement states there is no evidence of pulmonary emboli or aneurysm/dissection of the aorta. On repeat assessment the patient she states that her symptoms have essentially resolved and she feels significantly improved compared to on arrival. I have had a very long discussion with the patient regarding her disposition. She feels that her symptoms are manageable and not far off from her baseline. She reiterates that her primary chief concern was the burning sensation in her scalp. She has been on Valtrex and antibiotics for short period of time so I have instructed her to continue these medications to see if they will result in improvement of her symptoms. I have considered the possibility of placing the patient on gabapentin for pain in the event that this is a shingles rash on the scalp, however I do not want to place the patient at risk for respiratory depression in the setting of chronic COPD with CO2 retention as this could provoke acute hypercapnic respiratory failure. Therefore I have instructed the patient to follow-up with her primary care physician Dr. Costa as previously scheduled July 24 and if this rash on her scalp is not improved I have asked her to have him consider tinea capitis as a possibility. During her stay in the emergency department she has remained stable on her baseline 3 L. I have reassessed the patient on multiple occasions and she still does not demonstrate any signs of increased work of breathing or wheezing. Given this normal respiratory exam and absence of cough with increased pedal production I do not feel that she is currently experiencing a COPD exacerbation. Therefore she is stable for discharge home. All questions been answered and all parties are agreeable with this plan Critical Care Critical Care Time Critical Care Time: No
[2025-07-11 19:20] VITALS: BP 128/70; PULSE 87; RESP 18; O2SAT 98
[2025-07-11 19:24] VITALS: O2SAT 98
[2025-07-11 20:00] LABS: Troponin I < 0.01 ng/ml (0.00-0.034)
[2025-07-11 20:08] VITALS: BP 145/78; PULSE 74; RESP 20; TEMP 37.1; O2SAT 98
[2025-07-11 20:49] LABS: Reflex Lactic Add Lactic Reflex
== END 2025-07-11 20:15 | disposition home or self-care (01) ==
PROVIDERS: Emergency Provider Student in an Organized Health Care Education/Training Program; PCP Nurse Practitioner Family
DX: L98.8 Other specified disorders of the skin and subcutaneous tissue (principal); F17.210 Nicotine dependence, cigarettes, uncomplicated; J44.9 Chronic obstructive pulmonary disease, unspecified; R74.02 Elevation of levels of lactic acid dehydrogenase [LDH]; E87.1 Hypo-osmolality and hyponatremia; D72.829 Elevated white blood cell count, unspecified; Z99.81 Dependence on supplemental oxygen
CPT/HCPCS: 71045; 71275; 80053; 82803; 83690; 83880; 84484; 85025; 93005; 99285; Q9967

== ENCOUNTER 2025-07-24 12:48 | Outpatient (CLI) | payer OTHER, SELFPAY ==
--- OUTSIDE RECORDS SUMMARY | 2025-07-24 12:50 | XMS_ITS | Clinical Summary ---
[facility] Organization [facility] Address [address] [place] [address] Care Team Providers Care Rn Neurosurgical Name Role Phone Gonzalez Goldman MD Primary Care Provider [phone] [phone] Allergies No known active allergies Medications clonazePAM (KlonoPIN) 0.5 MG tablet 01/30/2023 Active vitamin D (ERGOCALCIFEROL) 1.25 MG (99340 UT) capsule capsule 02/16/2023 Active levETIRAcetam (KEPPRA) [...] [employer] MED[employer] ADVANTAGE Care Teams Rn Neurosurgical Relationship Specialty Start Date End Date Gonzalez Goldman MD [address] [address] [address] ATTN: [place] [address] PCP - General Emergency Medicine 12/20/22
--- OUTSIDE RECORDS SUMMARY | 2025-07-24 12:50 | XMS_ITS | Clinical Summary ---
Author Organization [facility] Address [address] [place] [address] Care Team Providers Care Chartered Accountant Name Role Phone System, Provider Not In [...] therelease of HIV test results or diagnoses. [id number] Allergies No known active allergies Medications [...] drink = 0.6 oz pur e alcohol) [facility] Utilities Answer Date Recorded In the past 12 months has [facility], [employer], or water [employer] threatened to shut off services in your [...] any time in the past 12 [place], were you homeless or living in a intermediate (including now)? Patient unable to answer 11/20/2024 [...] Immunization: COVID-19 ( season) 2025 Immunization: Influenza ([facility]) (#1) 2025 HIV Screening Completed 11/20/2024 Hepatitis C Screening ([employer]) Completed Procedures Procedure Name Priority Date/Time Associated [...] possibility of exposure to HCV. Boris Alcaraz [facility] BLOOD ORDERABLES Final Resu lt [facility] [address] * HIV 1+2 Antibody/Antigen with Reflex (11/20/2024 6:56 AM EDT) HIV 1+2 AB/AGN Nonreactive Nonreactive 11/20/2024 7:56 AM EDT [facility] Serum 11/20/2024 6:56 AM EDT 11/20/2024 7:05 AM EDT Narrative [facility] - 11/20/2024 7:56 AM EDT \HIVRNR Boris Alcaraz [facility] BLOOD ORDERABLES Final Resu lt [facility] [address] from Last 3 Months or Most Recently Relevant to Health Maintenance Insurance AETNA [facility] Advance Directives For more information, please contact: [phone] * Full Code (Latest Code Status on File) Date Activated Date Inactivated Comments 11/20/2024 2:34 AM 11/27/2024 2:18 AM Care Teams Chartered Accountant Relationship Specialty Start Date End Date System, Provider Not In PCP - General 11/21/24
--- OUTSIDE RECORDS SUMMARY | 2025-07-24 12:51 | XMS_ITS | Clinical Summary ---
Author Organization Healthcare Address [address] [place] [address] Care Team Providers Care Register In Chancery Name Role Phone Mariana Faith Primary Care Provider [phone] [phone] Immunizations Immunization Administration Dates Next Due Influenza, [...] - PCV20 or PCV21) 02/17/2021 02/18/2016, 09/14/2012 [id number] Vaccine (1 - 2024- season) 2025 UKY-Influenza [...] Narrative SUNQUEST - 09/15/2012 9:54 AM EST [facility] MR #: [id number] [facility] [place]IO FengBhaskar [place], [place] [address] 1970 (Age: 41) FW Collect Date: 09/11/2012 00:00 Receipt Date: 09/12/2012 07:26 Page 1 DEPARTMENT OF PATHOLOGY AND LABORATORY MEDICINE CYTOPATHOLOGY REPORT Email: [email or web address] beds at the [facility] [id number] ATTENDING MD/Practitioner: Graeme Brown MD Service: [facility] Location: [facility] OTHER MD(S): Valerie Alcaraz [...] (COPD) 305.00 ALCOHOL ABUSE, UNSPECIFIED F: A; 38864 SNOMED CODES: A; [id number] A resident has participated in this service. A pathologist has performed and is responsible for the reported pathologic evaluation. us Historical Provider LAB PATHOLOGY ORDERABLES Fin al Result Performing Organization Address City/State/[facility] Co de Phone Number SUNQUEST from Last 3 Months or Most Recently Relevant to Health Maintenance Insurance AETNA [facility] MEDICAID Care Teams Register In Chancery Relationship Specialty Start Date End Date Mariana Faith PA [address] [place] [address] PCP - General 01/01/21
--- OUTSIDE RECORDS SUMMARY | 2025-07-24 12:51 | XMS_ITS | Encounter Summary ---
Author Organization Healthcare Address [address] [place] [address] Care Team Providers Care Optical Brightener Maker Helper Name Role Phone Mariana Faith Primary Care Provider [phone] [phone] Encounter Details Date Type Department Care Team [...] Notes * Hospital Course - Shreya Eagle, FUR DRY CLEANER - 11/19/2024 8:30 PM EDT Rocio Gonzalez [...] Alk phos 57 Troponin 0.44 Pro bnp 93442 Procal 2.13 INR 1.3 Wbc 25 Plt [...] FiO2 as tolerated - Empiric broad-spectrum antibiotics: {abx:63685} - Propofol and hydromorphone drips to facilitate [...] on filedocumented in this encounter Care Teams Optical Brightener Maker Helper Relationship Specialty Start Date End Date Mariana Faith PA [address] [place] [address] PCP - General 01/01/21 documented as of this encounter
== END 2025-07-24 23:59 | disposition home or self-care (01) ==
LOC: RT 12:48
PROVIDERS: PCP Nurse Practitioner Family; Visit Provider Internal Medicine Pulmonary Disease
DX: J44.9 Chronic obstructive pulmonary disease, unspecified (principal); R94.2 Abnormal results of pulmonary function studies
CPT/HCPCS: 94010; 94618

== ENCOUNTER 2025-07-24 15:56 | Emergency (ER) | payer OTHER, SELFPAY ==
[2025-07-24 15:57] VITALS: BP 146/80; PULSE 64; RESP 20; TEMP 37; O2SAT 98; BMI 16.8
--- NOTE | 2025-07-24 16:28 | XR_ITS ---
PROCEDURE INFORMATION: Exam: XR Chest Exam date and time: 07/24/2025 4:45 PM Age: 54 years old Clinical indication: Shortness of breath; Additional info: SOA TECHNIQUE: Imaging protocol: Radiologic exam of the chest. Views: 1 view. COMPARISON: CT ANGIO CHEST PE PROTOCOL 07/11/2025 5:19 PM FINDINGS: Lungs: Emphysema. No consolidation. Stable right apical bulla with a calcified rim. Small calcified granuloma in the left mid lung. Pleural spaces: No pleural effusion. No pneumothorax. Heart/Mediastinum: No cardiomegaly. Bones/joints: Old right posterior rib fractures. IMPRESSION: 1. No acute finding. 2. Pulmonary emphysema and stable right apical bulla with a calcified rim.
--- NOTE | 2025-07-24 16:29 | HMH.EDGENADL ---
Discharge Plan Disposition Patient Disposition: Home, Self-Care Prescriptions Prescriptions: New Lice Killing (permethrin) 1 % liquid 60 ml topical ONCE Qty: 59 0RF Rx Instructions: Prior to application, wash hair with shampoo, rinse with water, and towel dry. Apply a sufficient amount of permethrin topical liquid 1% to saturate the hair and scalp. Leave on for 10 minutes, then rinse off with warm water and remove nits with a nit comb. No Action levetiracetam 1,000 mg tablet 1,000 mg PO BID ferrous sulfate 325 mg (65 mg iron) tablet 325 mg PO DAILY Qty: 90 3RF rosuvastatin [Crestor] 20 mg tablet 20 mg PO DAILY Qty: 30 5RF aspirin [Adult Low Dose Aspirin] 81 mg tablet,delayed release (DR/EC) 81 mg PO DAILY Qty: 30 5RF pramipexole 1 mg tablet 1 mg PO DAILY ipratropium-albuterol 0.5 mg-3 mg(2.5 mg base)/3 mL solution for nebulization 3 ml inhalation Q6H PRN (Reason: shortness of breath or wheezing) Qty: 180 6RF albuterol sulfate [Ventolin HFA] 90 mcg/actuation HFA aerosol inhaler 2 puff inhalation Q6H PRN (Reason: shortness of breath or wheezing) Qty: 8.5 3RF budesonide-formoterol [Symbicort] 160-4.5 mcg/actuation HFA aerosol inhaler 2 puff inhalation BID Qty: 10.2 3RF tiotropium bromide [Spiriva with HandiHaler] 18 mcg capsule, w/inhalation device 1 cap inhalation DAILY 90 Days Qty: 90 3RF Rx Instructions: puncture 1 cap using device; one dose = 2 inhalations Eliquis 5 mg tablet 5 mg PO BID Qty: 180 3RF metoprolol succinate 25 mg tablet extended release 24 hr 25 mg PO DAILY Qty: 30 5RF ergocalciferol (vitamin D2) [Vitamin D2] 1,250 mcg (50,000 unit) capsule 1,250 mcg PO WEEKLY valacyclovir 1 gram tablet 1,000 mg PO TID 5 Days Qty: 15 0RF ropinirole 1 mg tablet 1 mg PO HS Referrals Follow up/Referrals: Merly Armas MD [Referring, Dermatology] - See instructions Referral Note: Concern for psoriasis. Persistent rash refractory to antibiotics and Valtrex. Covering approximately 50% of the body. May benefit from punch biopsy. José Liriano APRN [Primary Care Provider, Family Practice] - See instructions Clinical Impressions Clinical Impression: Head lice Instructions Patient Instructions: DI for Skin Abscess Print Language Print Language: Spanish Discharge ED Provider: Eufemia Butt General Adult HPI General Chief complaint: Skin/Abscess/Foreign Body Stated complaint: SOA broke out in a rash Time Seen by Provider: 07/24/25 16:14 Mode of Arrival: Ambulatory Source of Information: Patient Description of Symptoms (Recalled from ER Triage Doc. by RN): pt is here for generalized rash that started a month ago on her scalp and has gone down to her bottom, pt states it itches and hayward, pt is is red swollen and cracked and dry History of Present Illness HPI narrative: This is a 54-year-old female with history of COPD, chronic hypoxic respiratory failure on 3 L nasal cannula, heart failure with preserved ejection fraction, iron deficiency anemia, and recent hospital admission for rash and shortness of breath who presents emergency department sent from clinic for increased oxygen requirement. She was performing pulmonary function testing, when she sustained an oxygen desaturation event to the mid 80s requiring 6 L nasal cannula. Sending physician is also concerned that her rash is spreading. She is status post Augmentin and Valtrex with no improvement. Denies any lesions in the mouth or in the mucosal regions of the genitalia. She reports the rash is painful and excessively itchy. She has not been applying any creams to the area recently, she was previously applying tea tree oil and mayonnaise. She denies any current chest pain. She does report mild chronic shortness of breath, however not significantly worsened from her baseline. Related Data Home Medications ?Medication ?Instructions ?Recorded ?Confirmed levetiracetam 1,000 mg tablet 1,000 mg PO BID 09/26/22 07/24/25 ropinirole 1 mg tablet 1 mg PO HS 12/02/24 07/24/25 pramipexole 1 mg tablet 1 mg PO DAILY 12/23/24 07/24/25 ergocalciferol (vitamin D2) 1,250 1,250 mcg PO WEEKLY 07/03/25 07/24/25 mcg (50,000 unit) capsule (Vitamin D2) Previous Rx's ?Medication ?Instructions ?Recorded ferrous sulfate 325 mg (65 mg 325 mg PO DAILY #90 tabs 12/26/24 iron) tablet apixaban 5 mg tablet (Eliquis) 5 mg PO BID #180 tabs 01/06/25 aspirin 81 mg tablet,delayed 81 mg PO DAILY #30 tabs 03/05/25 release (Adult Low Dose Aspirin) rosuvastatin 20 mg tablet (Crestor) 20 mg PO DAILY #30 tabs 03/05/25 albuterol sulfate 90 mcg/actuation 2 puff inhalation Q6H PRN 06/05/25 aerosol inhaler (Ventolin HFA) shortness of breath or wheezing #8.5 grams budesonide-formoterol HFA 160 2 puff inhalation BID shortness of 06/05/25 mcg-4.5 mcg/actuation aerosol breath or wheezing #10.2 grams inhaler (Symbicort) ipratropium 0.5 mg-albuterol 3 mg 3 ml inhalation Q6H PRN shortness 06/05/25 (2.5 mg base)/3 mL nebulization of breath or wheezing #180 mL soln tiotropium bromide 18 mcg capsule 1 cap inhalation DAILY 90 days #90 06/05/25 with inhalation device (Spiriva caplets with HandiHaler) metoprolol succinate 25 mg 25 mg PO DAILY #30 tabs 06/16/25 tablet,extended release 24 hr valacyclovir 1 gram tablet 1,000 mg PO TID 5 days #15 tabs 07/05/25 permethrin 1 % topical liquid 60 ml topical ONCE #59 mL 07/24/25 (Lice Killing (permethrin)) Allergies Allergy/AdvReac Type Severity Reaction Status Date / Time No Known Allergies Allergy Verified 07/24/25 14:47 [facility] Disclaimer: The information contained in this section may have been updated after the patient was seen, as this information can be updated by other users. Medical History Liver cancer Lung cancer HTN (hypertension) CAD (coronary artery disease) HLD (hyperlipidemia) COPD (chronic obstructive pulmonary disease) Multiple pulmonary emboli Pulmonary hypertension (HFpEF) heart failure with preserved ejection fraction Epileptic seizure Surgical History History of hysterectomy Family History Other Asthma COPD (chronic obstructive pulmonary disease) Hypertension Social History Smoking Status: Former smoker alcohol intake: never substance use type: denies use current occupational status: other Travel in the last 8 weeks?: None housing: other caffeine: Yes Have you lived/traveled outside [place] in past 30 days?: No Contact w/someone who lives/traveled outside [place] past 30 days?: No Exposure to someone with infectious disease in past 14 days?: No Do you have a fever (greater than 100.4 F or 38 C)?: No Have you tested positive for COVID-19?: No Exposed to someone with COVID-19 in past 14 days?: No Do you have a sore throat?: No Do you have a cough?: No Do you have any weakness?: No Do you have any diarrhea?: No Are you experiencing any unusual bleeding?: No Do you have any muscle aches/pain?: No Do you have any abdominal pain?: No Are you experiencing loss of taste or smell?: No Other Medical History Have you received the Flu Vaccine for this season: No Have you received the Pneumonia Vaccine: No ROS Obtained: Yes All systems reviewed & no additional complaints except as documented Physical Exam General General appearance: alert and in no apparent distress Head Head exam: atraumatic and other (Multiple small insects crawling in the scalp consistent with head lice) Eye Eye exam: Present normal appearance, PERRL and EOMI ENT ENT exam: Present mucous membranes moist Neck Neck exam: Present normal inspection and full ROM; Absent tenderness Chest Chest inspection: Present symmetric chest wall rise; Absent tenderness Respiratory Respiratory exam: Absent respiratory distress, wheezes or accessory muscle use Cardiovascular Cardiovascular exam: Present regular rate and normal rhythm Abdominal Exam Abdominal exam: Present soft; Absent tenderness or guarding Extremities Exam Extremities exam: Present full ROM; Absent tenderness Neurological Exam Neurological exam: Present alert and oriented X3 Psychiatric Psychiatric exam: Present normal affect Skin Skin exam: Present warm, dry and other (Diffuse scaly rash on an erythematous base covering approximately 50% body surface area with a focus on the scalp, around the eyes, on the upper back, and on the dorsal surface of the MCPs over the hands) Medical Decision Making Medical Records Screening: Per USPSTF and CDC recommendations, given the prevalence of disease in our region, it is our hospital?s policy to screen for HIV and viral Hepatitis for all patients aged 18 and over and those with ongoing risk factors. Payam Inquiry Pt receiving controlled substance: No Payam was queried for this patient: No Vital Signs: 07/24/25 15:57 Temperature 98.6 F Temperature Source Oral Pulse Rate [Left Radial] 64 Respiratory Rate 20 Blood Pressure [Right Arm] 146/80 H Blood Pressure Mean [Right Arm] 102 02 Sat by Pulse Oximetry 98 Oxygen Delivery Method Room Air Lab Data Lab Results 07/24/25 16:27: Sodium 141, Potassium 4.2, Chloride 94 L, Carbon Dioxide 35 H, Anion Gap 16.2 H, BUN 12, Creatinine 0.60, Estimated Creat Clear 72, Estimated GFR 104, Est GFR ( Amer) 126, Glucose 88, Calcium 9.3, Total Bilirubin 0.4, AST 32, ALT 22, Alkaline Phosphatase 100, C-Reactive Protein 27.2 H, Total Protein 7.7, Albumin 4.4, Globulin 3.3 H, Albumin/Globulin Ratio 1.3 07/24/25 17:10: WBC 15.8 H, RBC 4.13 L, Hgb 11.7 L, Hct 36.3 L, MCV 87.9, MCH 28.3, MCHC 32.2, RDW 14.3, Plt Count 407, MPV 9.9, Neut % (Auto) 77.7, Lymph % (Auto) 12.0, Dyer % (Auto) 7.4, Eos % (Auto) 1.8, Baso % (Auto) 0.7, Neut # (Auto) 12.3 H, Lymph # (Auto) 1.9, Dyer # (Auto) 1.2 H, Eos # (Auto) 0.3, Baso # (Auto) 0.1, ESR 65 H, VBG pH 7.35, VBG pCO2 60.5 H, VBG pO2 30.6, VBG HCO3 32.4 H, VBG Total CO2 34.3 H, VBG O2 Saturation 59.6, VBG Base Excess 6.8 H, VBG Lactic Acid 1.2 07/24/25 17:10 07/24/25 16:27 Orders (Tests/Meds): ED MEDICATIONS Discontinued Medications Generic Name Dose Route Start Last Admin Trade Name nIes PRN Reason Stop Dose Admin Albuterol/Ipratropium 3 ml 07/24/25 16:27 07/24/25 17:17 Ipratropium/Albuterol 3 Ml Neb IH 07/24/25 16:28 3 ml ONCE ONE Administration Dexamethasone Sodium Phosphate 8 mg 07/24/25 18:10 07/24/25 18:31 Dexamethasone 4mg/Ml 1ml Vial IV 07/24/25 18:11 8 mg ONCE ONE Administration ORDERS Category Date Time Status Chest XR -- portable [XR chest portable] Stat Exams 07/24/25 16:28 Completed CBC w/Auto Diff [Complete Blood Count Auto Diff] Stat Lab 07/24/25 17:10 Completed CMP [Comprehensive Metabolic Panel] Stat Lab 07/24/25 16:27 Completed CRP [C-Reactive Protein] Stat Lab 07/24/25 16:27 Completed ESR [Erythrocyte Sedimentation Rate] Stat Lab 07/24/25 17:10 Completed VBG [Venous Blood Gas] Stat RT 07/24/25 17:10 Completed Medical Decision Narrative: In summary, this is a 54y/o female presenting the emergency department for rash and shortness of breath. Differential diagnosis includes but is not limited to: COPD exacerbation, pneumonia, shingles, head lice, dermatomyositis, psoriasis On my initial assessment, the patient is hemodynamically stable in no acute distress. She is saturating well on her baseline oxygen of 3 L. Physical exam is notable for diffuse rash that seems most consistent with psoriasis or potentially dermatomyositis. She does have obvious head lice infestation on exam as well. Initial workup will be focused on evaluating lab work and obtaining chest x-ray in order to assess for pneumonia or any organ dysfunction. EKG shows normal sinus rhythm at a rate of 86. Normal [place], QRS, and QTc intervals. Normal axis. No acute ST elevations or signs of acute subendocardial or transmural ischemia. Patient received Decadron and DuoNeb for treatment. Labs personally interpreted which demonstrate stable leukocytosis and stable mild anemia. Platelet count within normal limits. ESR 65, CRP 27.2. VBG shows a chronic respiratory acidosis that is compensated with pH of 7.35, CO2 60.5, and bicarb 32.4. Normal lactate. CMP shows no severe electrolyte abnormalities. Anion gap is mildly elevated today. LFTs grossly normal. XR personally interpreted which demonstrate no evidence of focal opacity or acute pneumonia. Radiology was in agreement. She has overall chronic bullous emphysematous changes. Admission was considered and ultimately I had a discussion with the hospitalist team regarding their opinion on any need for admission or potential IV steroids with concern for potential dermatomyositis. They agree that the patient's rash is impressive, however they feel this is most consistent with psoriasis. They recommended dermatology consult, and unfortunately we do not have this service inpatient. Ultimately, it was felt that the patient does not require hospital admission for her rash. I discussed discharge home with the patient. She is very reassured to be discharged home and would prefer to go home. I discussed permethrin treatment for lice infestation and recommended Vaseline for rash. Dermatology referral placed. Patient was encouraged to return to the ED should her symptoms worsen Critical Care Critical Care Time Critical Care Time: No
--- NOTE | 2025-07-24 16:31 | PC.NURSE ---
provider notifies staff that patient has lice
[2025-07-24] MEDS: IPRATROPIUM/ALBUTEROL 3 ML NEB IH (17:17)
[2025-07-24 17:31] LABS: Lactate Venous 1.2 mmol/L (0.4-2.0); VBG HCO3 32.4 mmol/L (23-30); VBG PH 7.35 mmol/L (7.31-7.41); VBG PO2 30.6 mmol/L (28-40)
[2025-07-24 17:35] LABS: VBG PCO2 60.5 mmol/L (35-51)
[2025-07-24 17:41] LABS: Albumin Level 4.4 g/dl (3.5-5.0); Chloride 94 mmol/L (98-107); Potassium 4.2 mmoL/L (3.5-5.1); Sodium 141 mmol/L (136-145)
[2025-07-24 17:44] LABS: Alanine Aminotransferase 22 U/L (12-78); Albumin/Globulin Ratio 1.3 (1.1-1.8); Alkaline Phosphatase 100 U/L (38-126); Anion Gap 16.2 mEq/L (5-15); Aspartate Amino Transferase 32 U/L (14-36); Bilirubin,Total 0.4 mg/dl (0.2-1.3); Blood Urea Nitrogen 12 mg/dl (7-17); Calcium 9.3 mg/dl (8.4-10.2); Carbon Dioxide 35 mmol/L (22.0-30.0); Creatinine Clearance Estimated 72 mL/min (50-200); Creatinine,Serum 0.60 mg/dl (0.52-1.04); Estimated Glomerular Filt Rate 104 ml/min (>60); GFR (African American) 126 ML/MIN (>60); Globulin 3.3 g/dL (1.3-3.2); Glucose 88 mg/dl (74-100); Total Protein,Serum 7.7 g/dl (6.3-8.2)
[2025-07-24 17:45] LABS: Hematocrit 36.3 % (37.0-47.0); Hemoglobin 11.7 g/dL (12.2-16.2); Immature Granulocytes % 0.4 %; Mean Corpuscular HGB Conc 32.2 g/dL (31.8-35.4); Mean Corpuscular Hemoglobin 28.3 pg (27.0-31.2); Mean Corpuscular Volume 87.9 fl (81-99); Nucleated Red Blood Cells % 0 %; Platelet Count 407 K/mm3 (142-424); Red Blood Count 4.13 M/mm3 (4.20-5.40); Red Cell Distribution Width-SD 45.4 fL; White Blood Count 15.8 K/mm3 (4.8-10.8)
[2025-07-24 17:50] LABS: C-Reactive Protein 27.2 mg/L (0-4)
[2025-07-24] MEDS: DEXAMETHASONE 4MG/ML 1ML VIAL 8 MG IV (18:31)
[2025-07-24 19:12] VITALS: BP 136/79; PULSE 62; RESP 18; O2SAT 98
[2025-07-24 19:13] VITALS: BP 140/80; PULSE 64; RESP 18; TEMP 37; O2SAT 98
== END 2025-07-24 19:18 | disposition home or self-care (01) ==
PROVIDERS: Emergency Provider Student in an Organized Health Care Education/Training Program; PCP Nurse Practitioner Family
DX: R06.02 Shortness of breath (principal); L98.9 Disorder of the skin and subcutaneous tissue, unspecified; B85.0 Pediculosis due to Pediculus humanus capitis; J44.9 Chronic obstructive pulmonary disease, unspecified; I11.0 Hypertensive heart disease with heart failure; I50.30 Unspecified diastolic (congestive) heart failure; Z87.891 Personal history of nicotine dependence
CPT/HCPCS: 71045; 80053; 82803; 85025; 85651; 86140; 93005; 96374; 99284; 99285; J1100